=== PATIENT | male | born 1965 | race Caucasian/White ===

== ENCOUNTER 2023-05-20 09:15 | Inpatient (IN) | payer BC ==
[2023-05-20] MEDS ORDERED: SODIUM CHLORIDE 0.9% 500 ML 500 ML IV STA (09:23)
[2023-05-20] MEDS ORDERED: DEXAMETHASONE SOD PHOSPHATE 10 MG/ML 1 ML VIAL IV STA (09:25)
[2023-05-20 09:46] LABS: Basophils % (A) 0 %; Eosinophils # (A) 0.2 k/uL (0-0.7); Eosinophils % (A) 2 %; HGB 16.9 gm/dL (13.0-17.5); Lymphocytes # (A) 1.8 k/uL (1.0-4.8); Lymphocytes % (A) 16 %; MCH 31.7 pg (25.0-35.0); MCHC 31.3 g/dL (31.0-37.0); MCV 101.5 fL (80.0-100.0); Mean Platelet Volume 8.6; Monocytes # (A) 0.6 k/uL (0-1.0); Monocytes % (A) 5 %; Neutrophils # (A) 8.7 k/uL (1.3-7.7); Neutrophils % (A) 75 %; Platelet Count 233 k/uL (150-450); RBC 5.32 m/uL (4.30-5.90); RDW 12.1 % (11.5-15.5); WBC 11.5 k/uL (3.8-10.6)
--- NOTE | 2023-05-20 09:57 | ED ---
General Adult HPI - General Chief complaint: Syncope Stated complaint: Near Syncope Time Seen by Provider: 05/20/23 09:20 Source: patient, RN/MD, RN notes reviewed, old records reviewed Mode of arrival: wheelchair Limitations: no limitations - History of Present Illness Initial comments: 57-year-old male presents after a near respiratory arrest. Patient had been lying flat for radiation treatment for reported laryngeal mass. Patient became progressively altered and was found to be hypoxic in the 60s. Patient was sat up and placed on oxygen and had an improvement in his mental status and oxygenation.. He was noted to be stridorous. Patient reports that he's had this noisy respiration for some time. He is following with both Zenia Baires and radiation oncology also regarding his management. Patient denies chest pain. Denies current dyspnea. Denies vomiting. Denies fever. - Related Data Home Medications Medication Instructions Recorded Confirmed ALPRAZolam [Xanax] 0.25 mg PO DAILY 05/20/23 05/20/23 Aprepitant [Emend] 80 mg PO DIRECTED 05/20/23 05/20/23 HYDROcodone/APAP 5-325MG [[place] 1 tab PO Q4HR PRN 05/20/23 05/20/23 5-325] Lido/Mdryl/Dexa/Aceta 5 ml PO TID PRN 05/20/23 05/20/23 OLANZapine [ZyPREXA] 2.5 mg PO DIRECTED 05/20/23 05/20/23 Omeprazole [PriLOSEC] 20 mg PO AC-BID 05/20/23 05/20/23 Ondansetron [Zofran] 4 - 8 mg PO Q4H PRN 05/20/23 05/20/23 Allergies Allergy/AdvReac Type Severity Reaction Status Date / Time No Known Allergies Allergy Verified 05/20/23 09:31 Review of Systems ROS Statement: Those systems with pertinent positive or pertinent negative responses have been documented in the HPI. ROS Other: All systems not noted in ROS Statement are negative. Past Medical History Past Medical History: Cancer, COPD, Syncope, Thyroid Disorder Additional Past Medical History / Comment(s): Graves disease, diverticulosis History of Any Multi-Drug Resistant Organisms: None Reported Additional Past Surgical History / Comment(s): vasectomy, biopsy of throat Past Psychological History: No Psychological Hx Reported Smoking Status: Current every day smoker Past Alcohol Use History: Occasional Past Drug Use History: Marijuana General Exam Limitations: no limitations General appearance: alert, lethargic, in distress Head exam: Present: atraumatic, normocephalic Eye exam: Present: normal appearance, PERRL ENT exam: Present: normal exam Respiratory exam: Present: respiratory distress (Tachypnea), stridor Cardiovascular Exam: Present: normal rhythm, tachycardia GI/Abdominal exam: Present: soft. Absent: distended, tenderness, guarding Extremities exam: Present: normal inspection, normal capillary refill. Absent: pedal edema Neurological exam: Present: alert, oriented X3, CN II-XII intact Psychiatric exam: Present: normal affect, normal mood Skin exam: Present: warm, dry, intact. Absent: cyanosis, diaphoretic Course Vital Signs 05/20/23 05/20/23 05/20/23 09:17 09:28 09:45 Temperature 98.0 F Pulse Rate 117 H Respiratory 30 H 30 H Rate Blood Pressure 123/83 O2 Sat by Pulse 99 97 Oximetry Fraction of Inspired Oxygen (FIO2) 05/20/23 05/20/23 05/20/23 10:14 10:25 10:40 Temperature Pulse Rate 115 H Respiratory 20 Rate Blood Pressure 151/84 215/99 O2 Sat by Pulse 98 Oximetry Fraction of 50 Inspired Oxygen (FIO2) 05/20/23 05/20/23 05/20/23 10:41 10:50 10:52 Temperature Pulse Rate 114 H 110 H 118 H Respiratory 18 20 12 Rate Blood Pressure 200/94 203/105 O2 Sat by Pulse 98 97 Oximetry Fraction of Inspired Oxygen (FIO2) 05/20/23 05/20/23 05/20/23 10:54 11:02 11:04 Temperature Pulse Rate 117 H 111 H Respiratory 20 20 Rate Blood Pressure 195/110 O2 Sat by Pulse 92 L 89 L Oximetry Fraction of Inspired Oxygen (FIO2) 05/20/23 05/20/23 05/20/23 11:07 11:16 11:21 Temperature Pulse Rate 125 H 129 H Respiratory 18 20 Rate Blood Pressure 147/95 96/69 O2 Sat by Pulse 100 100 Oximetry Fraction of 100 Inspired Oxygen (FIO2) 05/20/23 05/20/23 05/20/23 11:24 11:30 11:46 Temperature Pulse Rate 125 H 125 H 124 H Respiratory 20 20 20 Rate Blood Pressure 103/63 118/77 102/67 O2 Sat by Pulse 100 98 99 Oximetry Fraction of Inspired Oxygen (FIO2) 05/20/23 05/20/23 05/20/23 11:49 11:53 12:03 Temperature Pulse Rate 114 H Respiratory 20 Rate Blood Pressure 89/58 66/46 88/63 O2 Sat by Pulse 99 Oximetry Fraction of Inspired Oxygen (FIO2) 05/20/23 05/20/23 05/20/23 12:06 12:10 12:25 Temperature Pulse Rate 111 H Respiratory 20 Rate Blood Pressure 97/67 O2 Sat by Pulse 100 Oximetry Fraction of 50 50 Inspired Oxygen (FIO2) 05/20/23 05/20/23 12:33 12:38 Temperature Pulse Rate 105 H 107 H Respiratory 21 20 Rate Blood Pressure 88/63 87/58 O2 Sat by Pulse 100 99 Oximetry Fraction of Inspired Oxygen (FIO2) - Reevaluation(s) Reevaluation #1: 05/20/23 1100 Patient rapidly decompensated requiring definitive airway. Anesthesia was called for fiberoptic intubation and anesthesia requests ENT was also available during the intubation. Patient was ultimately successfully intubated with an endotracheal tube by anesthesia with significant difficulty and complexity due to large laryngeal mass. Medical Decision Making - Medical Decision Making Was pt. sent in by a medical professional or institution (, PA, DOOR TO DOOR FUNDRAISING COLLECTOR, urgent care, hospital, or long term...) When possible be specific @ -No Did you speak to anyone other than the patient for history (EMS, parent, family, police, friend...)? What history was obtained from this source @ -No Did you review nursing and triage notes (agree or disagree)? Why? @ -I reviewed and agree with nursing and triage notes Were old charts reviewed (outside hosp., previous admission, EMS record, old EKG, old radiological studies, urgent care reports/EKG's, long term records)? Report findings @ -No old charts were reviewed Differential Diagnosis (chest pain, altered mental status, abdominal pain women, abdominal pain men, vaginal bleeding, weakness, fever, dyspnea, syncope, headache, dizziness, GI bleed, back pain, seizure, CVA, palpatations, mental he alth, musculoskeletal)? @ -not applicable EKG interpreted by me (3pts min.). @ -[Sinus tachycardia rate of 117, TX interval 118, QRS duration 87, QTC 381, no ST segment elevation. X-rays interpreted by me (1pt min.). @ -[Postintubation x-ray showing satisfactory endotracheal tube CT interpreted by me (1pt min.). @ -[CT neck and chest are pending U/S interpreted by me (1pt. min.). @ -None done What testing was considered but not performed or refused? (CT, X-rays, U/S, labs)? Why? @ -None What meds were considered but not given or refused? Why? @ -None Did you discuss the management of the patient with other professionals (prof zachary i.e. , PA, DOOR TO DOOR FUNDRAISING COLLECTOR, lab, RT, psych nurse, licensed clinical social worker, wax machine operator, teacher, traffic control officer, high risk case manager)? Give summary @ -Case discussed with the admitting doctor Dr. Juarez, Dr. Chen, Dr. Amaya, and Dr. Wood Was smoking cessation discussed for >3mins.? @ -No Was critical care preformed (if so, how long)? @ -Yes, 35 minutes Were there social determinants of health that impacted care today? How? (Homelessness, low income, unemployed, alcoholism, drug addiction, transpor tation, low edu. Level, literacy, decrease access to med. care, residential, rehab)? @ -No Was there de-escalation of care discussed even if they declined (Discuss DNR or withdrawal of care, Hospice)? DNR status @ -No What co-morbidities impacted this encounter? (DM, HTN, Smoking, COPD, CAD, Cancer, CVA, ARF, Chemo, Hep., AIDS, mental health diagnosis, sleep apnea, morbid obesity)? @ Current smoker, laryngeal mass Was patient admitted / discharged? Hospital course, mention meds given and route, prescriptions, significant lab abnormalities, going to OR and other pertinent info. @ -[57-year-old male who presented from the outpatient radiation oncology department with near respiratory arrest, found to be hypoxic. There is very limited history from the patient and it was reported that the patient was presenting for radiation for unknown laryngeal mass which is been worked up at [facility]. Patient is a stridorous upon arrival with equal breath sounds bilaterally. Patient rapidly decompensated swelling emergency department and decision is made to intubate this patient with the assistance of anesthesia, fiberoptic airway and anesthesia requests ENT surgery via bedside. ENT is available emergency department within one or 2 minutes. Patient is sedated and intubated in the ICU. Undiagnosed new problem with uncertain prognosis? @ -No Drug Therapy requiring intensive monitoring for toxicity (Heparin, Nitro, Insulin, Cardizem)? @ -No Were any procedures done? @ -No Diagnosis/symptom? @ -Respiratory failure, hypoxic hypercarbic respiratory failure secondary to obstructing laryngeal mass Acute, or Chronic, or Acute on Chronic? @ -[Acute on chronic Uncomplicated (without systemic symptoms) or Complicated (systemic symptoms)? @ -default Side effects of treatment? @ -No Exacerbation, Progression, or Severe Exacerbation? @ -No Poses a threat to life or bodily function? How? (Chest pain, USA, IA, pneumonia, PE, COPD, DKA, ARF, appy, cholecystitis, CVA, Diverticulitis, Homicidal, Suicidal, threat to staff... and all critical care pts) @ -[Yes, upper airway obstruction. - Lab Data Result diagrams: 05/20/23 09:37 05/20/23 09:37 Lab Results 05/20/23 05/20/23 05/20/23 Range/Units 09:37 09:37 09:37 WBC 11.5 H (3.8-10.6) k/uL RBC 5.32 (4.30-5.90) m/uL Hgb 16.9 (13.0-17.5) gm/dL Hct 54.0 H (39.0-53.0) % MCV 101.5 H (80.0-100.0) fL MCH 31.7 (25.0-35.0) pg MCHC 31.3 (31.0-37.0) g/dL RDW 12.1 (11.5-15.5) % Plt Count 233 (150-450) k/uL MPV 8.6 Neutrophils % 75 % Lymphocytes % 16 % Monocytes % 5 % Eosinophils % 2 % Basophils % 0 % Neutrophils # 8.7 H (1.3-7.7) k/uL Lymphocytes # 1.8 (1.0-4.8) k/uL Monocytes # 0.6 (0-1.0) k/uL Eosinophils # 0.2 (0-0.7) k/uL Basophils # 0.0 (0-0.2) k/uL PT (9.0-12.0) sec INR (<1.2) APTT (22.0-30.0) sec Sample Site ABG pH (7.35-7.45) ABG pCO2 (35-45) mmHg ABG pO2 (83-108) mmHg ABG HCO3 (21-25) mmol/L ABG Total CO2 (19-24) mmol/L ABG O2 Saturation (94-97) % ABG Base Excess mmol/L Jonathan Test VBG pH (7.31-7.41) VBG pCO2 (37-51) mmHg VBG HCO3 (24-28) mmol/L FiO2 % Sodium 135 L (137-145) mmol/L Potassium 4.4 (3.5-5.1) mmol/L Chloride 91 L (98-107) mmol/L Carbon Dioxide 40 H (22-30) mmol/L Anion Gap 4 mmol/L BUN 22 H (9-20) mg/dL Creatinine 0.57 L (0.66-1.25) mg/dL Est GFR (CKD-EPI)AfAm >90 (>60 ml/min/1.73 sqM) Est GFR (CKD-EPI)NonAf >90 (>60 ml/min/1.73 sqM) Glucose 115 H (74-99) mg/dL POC Glucose (mg/dL) (70-110) mg/dL POC Glu Clinical Rehabilitation Coordinator ID Calcium 9.4 (8.4-10.2) mg/dL Magnesium 1.8 (1.6-2.3) mg/dL Total Bilirubin 0.6 (0.2-1.3) mg/dL AST 27 (17-59) U/L ALT 26 (4-49) U/L Alkaline Phosphatase 69 (38-126) U/L Troponin I <0.012 (0.000-0.034) ng/mL Total Protein 6.4 (6.3-8.2) g/dL Albumin 3.6 (3.5-5.0) g/dL 05/20/23 05/20/23 05/20/23 Range/Units 10:26 10:29 10:29 WBC (3.8-10.6) k/uL RBC (4.30-5.90) m/uL Hgb (13.0-17.5) gm/dL Hct (39.0-53.0) % MCV (80.0-100.0) fL MCH (25.0-35.0) pg MCHC (31.0-37.0) g/dL RDW (11.5-15.5) % Plt Count (150-450) k/uL MPV Neutrophils % % Lymphocytes % % Monocytes % % Eosinophils % % Basophils % % Neutrophils # (1.3-7.7) k/uL Lymphocytes # (1.0-4.8) k/uL Monocytes # (0-1.0) k/uL Eosinophils # (0-0.7) k/uL Basophils # (0-0.2) k/uL PT 9.9 (9.0-12.0) sec INR 0.9 (<1.2) APTT 24.6 (22.0-30.0) sec Sample Site ABG pH (7.35-7.45) ABG pCO2 (35-45) mmHg ABG pO2 (83-108) mmHg ABG HCO3 (21-25) mmol/L ABG Total CO2 (19-24) mmol/L ABG O2 Saturation (94-97) % ABG Base Excess mmol/L Jonathan Test VBG pH 7.08 L* (7.31-7.41) VBG pCO2 134 H* (37-51) mmHg VBG HCO3 40 H (24-28) mmol/L FiO2 % Sodium (137-145) mmol/L Potassium (3.5-5.1) mmol/L Chloride (98-107) mmol/L Carbon Dioxide (22-30) mmol/L Anion Gap mmol/L BUN (9-20) mg/dL Creatinine (0.66-1.25) mg/dL Est GFR (CKD-EPI)AfAm (>60 ml/min/1.73 sqM) Est GFR (CKD-EPI)NonAf (>60 ml/min/1.73 sqM) Glucose (74-99) mg/dL POC Glucose (mg/dL) 112 H (70-110) mg/dL POC Glu Clinical Rehabilitation Coordinator ID ArceJeannie Calcium (8.4-10.2) mg/dL Magnesium (1.6-2.3) mg/dL Total Bilirubin (0.2-1.3) mg/dL AST (17-59) U/L ALT (4-49) U/L Alkaline Phosphatase (38-126) U/L Troponin I (0.000-0.034) ng/mL Total Protein (6.3-8.2) g/dL Albumin (3.5-5.0) g/dL 05/20/23 Range/Units 11:56 WBC (3.8-10.6) k/uL RBC (4.30-5.90) m/uL Hgb (13.0-17.5) gm/dL Hct (39.0-53.0) % MCV (80.0-100.0) fL MCH (25.0-35.0) pg MCHC (31.0-37.0) g/dL RDW (11.5-15.5) % Plt Count (150-450) k/uL MPV Neutrophils % % Lymphocytes % % Monocytes % % Eosinophils % % Basophils % % Neutrophils # (1.3-7.7) k/uL Lymphocytes # (1.0-4.8) k/uL Monocytes # (0-1.0) k/uL Eosinophils # (0-0.7) k/uL Basophils # (0-0.2) k/uL PT (9.0-12.0) sec INR (<1.2) APTT (22.0-30.0) sec Sample Site r rad ABG pH 7.31 L (7.35-7.45) ABG pCO2 71 H* (35-45) mmHg ABG pO2 397 H (83-108) mmHg ABG HCO3 35 H (21-25) mmol/L ABG Total CO2 37 H (19-24) mmol/L ABG O2 Saturation 99.2 H (94-97) % ABG Base Excess 8.9 mmol/L Jonathan Test Yes VBG pH (7.31-7.41) VBG pCO2 (37-51) mmHg VBG HCO3 (24-28) mmol/L FiO2 100 % Sodium (137-145) mmol/L Potassium (3.5-5.1) mmol/L Chloride (98-107) mmol/L Carbon Dioxide (22-30) mmol/L Anion Gap mmol/L BUN (9-20) mg/dL Creatinine (0.66-1.25) mg/dL Est GFR (CKD-EPI)AfAm (>60 ml/min/1.73 sqM) Est GFR (CKD-EPI)NonAf (>60 ml/min/1.73 sqM) Glucose (74-99) mg/dL POC Glucose (mg/dL) (70-110) mg/dL POC Glu Clinical Rehabilitation Coordinator ID Calcium (8.4-10.2) mg/dL Magnesium (1.6-2.3) mg/dL Total Bilirubin (0.2-1.3) mg/dL AST (17-59) U/L ALT (4-49) U/L Alkaline Phosphatase (38-126) U/L Troponin I (0.000-0.034) ng/mL Total Protein (6.3-8.2) g/dL Albumin (3.5-5.0) g/dL Critical Care Time Critical Care Time: Yes Total Critical Care Time: 35 Disposition Clinical Impression: Laryngeal mass, Respiratory failure Disposition: ADMITTED IP TO THIS HOSP Condition: Serious Is patient prescribed a controlled substance at d/c from ED?: No Time of Disposition: 12:00
[2023-05-20 10:26] LABS: ALT 26 U/L (4-49); AST 27 U/L (17-59); African American GFR (CKD) >90 (>60 ml/min/1.73 sqM); Albumin 3.6 g/dL (3.5-5.0); Alkaline Phosphatase 69 U/L (38-126); Anion Gap 4 mmol/L; Blood Urea Nitrogen 22 mg/dL (9-20); Calcium 9.4 mg/dL (8.4-10.2); Carbon Dioxide 40 mmol/L (22-30); Chloride 91 mmol/L (98-107); Glucose 115 mg/dL (74-99); Magnesium 1.8 mg/dL (1.6-2.3); Non-African American GFR(CKD) >90 (>60 ml/min/1.73 sqM); Potassium 4.4 mmol/L (3.5-5.1); Sodium 135 mmol/L (137-145); Total Bilirubin 0.6 mg/dL (0.2-1.3); Total Protein 6.4 g/dL (6.3-8.2)
[2023-05-20 10:28] LABS: Glucose,Whole Blood 112 mg/dL (70-110)
[2023-05-20] MEDS ORDERED: MIDAZOLAM 1 MG/ML 5 ML VIAL IV STA ×3 (10:35→13:30)
[2023-05-20] MEDS ORDERED: SUCCINYLCHOLINE CHLORIDE 200 MG/10 ML VIAL IV STA (10:35)
[2023-05-20 10:46] LABS: VBG PH 7.08 (7.31-7.41)
[2023-05-20 10:53] LABS: INR 0.9 (<1.2); Partial Thromboplastin Time 24.6 sec (22.0-30.0); Prothrombin Time 9.9 sec (9.0-12.0)
[2023-05-20] MEDS ORDERED: CISATRACURIUM 200 MG in SODIUM CHLORIDE 0.9% 180 ML IV SCH (11:15)
--- NOTE | 2023-05-20 11:17 | XR ---
EXAMINATION TYPE: XR chest 1V portable DATE OF EXAM: 05/20/2023 Comparison: None Clinical History: 57 male shortness of breath and syncope Findings: Heart borderline in size. Interstitial and vascular prominence. Old healed right-sided rib fracture d eformities. No consolidation or pleural effusion. Impression: Borderline heart size and interstitial prominence. Correlate to exclude mild pulmonary vascular conge stion.
[2023-05-20] MEDS ORDERED: RACEPINEPHRINE 2.25% NEB 0.5 ML NEBU INHALATION STA (11:38)
--- NOTE | 2023-05-20 11:45 | XR ---
EXAMINATION TYPE: XR chest 1V portable DATE OF EXAM: 05/20/2023 Comparison: Earlier today Clinical History: 57-year-old male intubation placement Findings: Satisfactory ET tube. NG tube tip is located within the fundus of the stomach. Sidehole is not well s een. Heart upper limits of normal in size. Interstitial prominence. No jessica consolidation or pleural effusion. Hyperinflation. Impression: 1. Satisfactory ET tube. Consider slight advancement of the so that the sidehole in the stomach. NG t ube. We suspect that the sidehole is just above the GE junction. 2. COPD with similar interstitial densities.
[2023-05-20] MEDS ORDERED: SODIUM CHLORIDE 0.9% 1,000 ML IV ONE ×3 (11:55→16:49)
[2023-05-20 12:00] LABS: ABG Base Excess 8.9 mmol/L; ABG HCO3 35 mmol/L (21-25); ABG PH 7.31 (7.35-7.45); ABG PO2 397 mmHg (83-108); ABG TCO2 37 mmol/L (19-24); Allen Test Performed? Yes
[2023-05-20 12:01] LABS: ABG Oxygen Saturation 99.2 % (94-97); ABG PCO2 71 mmHg (35-45)
[2023-05-20] MEDS ORDERED: PANTOPRAZOLE 40 MG/10 ML VIAL IVP STA (12:03)
[2023-05-20] MEDS ORDERED: NALOXONE 0.4 MG/ML 1 ML VIAL IV PRN (12:29)
[2023-05-20] MEDS ORDERED: ACETAMINOPHEN SUPPOSITORY 650 MG SUPP RECTAL PRN (12:29)
[2023-05-20] MEDS: SODIUM CHLORIDE 0.9% 1,000 ML IV SCH (12:51)
--- NOTE | 2023-05-20 12:55 | P.HPIM ---
History of Present Illness H&P Date: 05/20/23 Chief Complaint: respiratory failure 57-year-old man with a history of head and neck cancer with obstructing laryngeal mass present for respiratory failure, obtundation. 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 CODE BLUE was called at the time, and patient was noted to be hypoxic to 50-60% saturation, was placed on nonrebreather and improved to mid 90s. Subsequently he was transferred to the emergency room for further evaluation. During his ER course, patient became more obtunded, requiring emergent intubation. Anesthesia was called for emergent intubation with possible need for surgical airway. ENT came to bedside in case tracheostomy was required. Anesthesia was able to get the patient intubated with great difficu lty, during the procedure was notable that he had friable mucosa with easy bleeding of the mass. Patient was ultimately transferred to the intensive care unit for further management. In the emergency room, patient was afebrile, 151/84, heart rate 115, 98% on 15 L of nonrebreather. ECG demonstrated leukocytosis to 11.5, MCV of 101.5. Basic metabolic panel showed sodium of 135, chloride 91, CO2 40, BUN 22, creatinine 1.57. Liver function tests are unremarkable. Troponin was less than 0.012. Coags are unremarkable. Initial pH on VBG was 7.08 with a pCO2 of 134. Following intubation, his ABG demonstrated pCO2 of 71, pH of 7.31. Chest x-ray showed normal-sized heart, clear parenchyma bilaterally, post intubation chest x-ray showed breathing tube in good position. EKG demonstrated sinus tachycardia with peaked P waves consistent with right atrial enlargement. Case was discussed with the emergency room provider at bedside, anesthesia, ENT physician - patient was admitted for further management. Review of systems could not be completed due to patient's obtundation and subsequent intubation status General: intubated, sedated HEENT: normocephalic, atraumatic, no tracheal deviation Respiratory: symmetric chest rise, no cyanosis, ventilator dependent, stridor is present CVS: perfusing all extremities, no distal gangrene, no pitting edema GI: soft, ND : no SPT, no CVAT, weldon not present Neuro: sedated Labs and imaging as above Assessment: Acute hypercarbic respiratory failure Laryngeal mass causing upper airway obstruction Head and neck cancer Plan: Vital signs reviewed and noted in the HPI Lab work reviewed and noted in the HPI EKG and CXR are personally interpreted and noted in the HPI Case was discussed with the Emergency Room provider and decision was made to admit the patient for hypercarbic respiratory failure secondary to obstructing laryngeal mass Computed tomography scan of the head and neck with IV contrast Scan of the chest with IV contrast ENT consult Oncology consult Pulmonology consult Agree with propofol, Versed, cistacurium I was present for and provided critical care in this patient for 90 minutes including rapid response time while patient was in [facility] as well as throughout his ER course. Patient is full code Past Medical History Past Medical History: Cancer, COPD, Syncope, Thyroid Disorder Additional Past Medical History / Comment(s): Graves disease, diverticulosis History of Any Multi-Drug Resistant Organisms: None Reported Additional Past Surgical History / Comment(s): vasectomy, biopsy of throat Past Psychological History: No Psychological Hx Reported Smoking Status: Current every day smoker Past Alcohol Use History: Occasional Past Drug Use History: Marijuana Medications and Allergies Home Medications Medication Instructions Recorded Confirmed Type ALPRAZolam [Xanax] 0.25 mg PO DAILY 05/20/23 05/20/23 History Aprepitant [Emend] 80 mg PO DIRECTED 05/20/23 05/20/23 History HYDROcodone/APAP 5-325MG [[place] 1 tab PO Q4HR PRN 05/20/23 05/20/23 History 5-325] Lido/Mdryl/Dexa/Aceta 5 ml PO TID PRN 05/20/23 05/20/23 History OLANZapine [ZyPREXA] 2.5 mg PO DIRECTED 05/20/23 05/20/23 History Omeprazole [PriLOSEC] 20 mg PO AC-BID 05/20/23 05/20/23 History Ondansetron [Zofran] 4 - 8 mg PO Q4H PRN 05/20/23 05/20/23 History Allergies Allergy/AdvReac Type Severity Reaction Status Date / Time No Known Allergies Allergy Verified 05/20/23 09:31 Physical Exam Osteopathic Statement: *. No significant issues noted on an osteopathic structural exam other than those noted in the History and Physical/Consult. Vitals: Vital Signs Temp Pulse Resp BP Pulse Ox FiO2 05/20/23 12:38 107 H 20 87/58 99 05/20/23 12:33 105 H 21 88/63 100 05/20/23 12:25 50 05/20/23 12:10 50 05/20/23 12:06 111 H 20 97/67 100 05/20/23 12:03 114 H 20 88/63 99 05/20/23 11:53 66/46 05/20/23 11:49 89/58 05/20/23 11:46 124 H 20 102/67 99 05/20/23 11:30 125 H 20 118/77 98 05/20/23 11:24 125 H 20 103/63 100 05/20/23 11:21 100 05/20/23 11:16 129 H 20 96/69 100 05/20/23 11:07 125 H 18 147/95 100 05/20/23 11:04 111 H 20 05/20/23 11:02 117 H 20 195/110 89 L 05/20/23 10:54 92 L 05/20/23 10:52 118 H 12 203/105 97 05/20/23 10:50 110 H 20 05/20/23 10:41 114 H 18 200/94 98 05/20/23 10:40 50 05/20/23 10:25 215/99 05/20/23 10:14 115 H 20 151/84 98 05/20/23 09:45 97 05/20/23 09:28 30 H 05/20/23 09:17 98.0 F 117 H 30 H 123/83 99 Intake and Output 05/19/23 05/20/23 05/20/23 22:59 06:59 14:59 Intake Total 21.669 Balance 21.669 Intake: Intake, IV Titration 21.669 Amount propofoL 1,000 mg In 21.669 Empty Bag 1 bag @ 15 MCG/ KG/MIN 5.47 mls/hr IV . [id number] Rx#:[id number] Other: Weight 60.781 kg Results CBC & Chem 7: 05/20/23 09:37 05/20/23 09:37 Labs: Abnormal Lab Results - Last 24 Hours (Table) 05/20/23 05/20/23 05/20/23 Range/Units 09:37 09:37 10:26 WBC 11.5 H (3.8-10.6) k/uL Hct 54.0 H (39.0-53.0) % MCV 101.5 H (80.0-100.0) fL Neutrophils # 8.7 H (1.3-7.7) k/uL ABG pH (7.35-7.45) ABG pCO2 (35-45) mmHg ABG pO2 (83-108) mmHg ABG HCO3 (21-25) mmol/L ABG Total CO2 (19-24) mmol/L ABG O2 Saturation (94-97) % VBG pH (7.31-7.41) VBG pCO2 (37-51) mmHg VBG HCO3 (24-28) mmol/L Sodium 135 L (137-145) mmol/L Chloride 91 L (98-107) mmol/L Carbon Dioxide 40 H (22-30) mmol/L BUN 22 H (9-20) mg/dL Creatinine 0.57 L (0.66-1.25) mg/dL Glucose 115 H (74-99) mg/dL POC Glucose (mg/dL) 112 H (70-110) mg/dL 05/20/23 05/20/23 Range/Units 10:29 11:56 WBC (3.8-10.6) k/uL Hct (39.0-53.0) % MCV (80.0-100.0) fL Neutrophils # (1.3-7.7) k/uL ABG pH 7.31 L (7.35-7.45) ABG pCO2 71 H* (35-45) mmHg ABG pO2 397 H (83-108) mmHg ABG HCO3 35 H (21-25) mmol/L ABG Total CO2 37 H (19-24) mmol/L ABG O2 Saturation 99.2 H (94-97) % VBG pH 7.08 L* (7.31-7.41) VBG pCO2 134 H* (37-51) mmHg VBG HCO3 40 H (24-28) mmol/L Sodium (137-145) mmol/L Chloride (98-107) mmol/L Carbon Dioxide (22-30) mmol/L BUN (9-20) mg/dL Creatinine (0.66-1.25) mg/dL Glucose (74-99) mg/dL POC Glucose (mg/dL) (70-110) mg/dL
[2023-05-20] MEDS: MIDAZOLAM HCL 50 MG in SODIUM CHLORIDE 0.9% 40 ML IV SCH (13:02)
[2023-05-20] MEDS ORDERED: MIDAZOLAM 2 MG/2 ML VIAL IV STA (13:52)
[2023-05-20 14:03] LABS: Appearance,Urine Clear (Clear); Bacteria,Urine Rare /hpf; Bilirubin,Urine Negative (Negative); Blood,Urine Negative (Negative); Color,Urine Yellow; Glucose,Urine (UA) Negative (Negative); Hyaline Casts,Urine 9 /lpf (0-2); Ketones,Urine 2+ (Negative); Leukocyte Esterase,Urine Negative (Negative); Mucus,Urine Occasional /hpf; Nitrite,Urine Negative (Negative); PH, Urine 5.5 (5.0-8.0); Protein,Urine 1+ (Negative); RBC,Urine 1 /hpf (0-5); Specific Gravity,Urine 1.021 (1.001-1.035); Squamous Epithelial Cell,Urine <1 /hpf (0-4); Urobilinogen,Urine <2.0 mg/dL (<2.0); WBC,Urine 6 /hpf (0-5)
--- NOTE | 2023-05-20 14:19 | P.CNPUL ---
History of Present Illness Consult date: 05/20/23 Requesting physician: Jung Gutierrez Reason for consult: dyspnea, hypoxemia, abnormal CXR/CT, other Chief complaint: Laryngeal cancer. History of present illness: Pulmonary consult dated 05/20/2023. 57-year-old male with history of laryngeal carcinoma, who apparently was over at the [facility] center, for his first radiation treatment. He apparently was laying flat, became short of breath, and had a change in mental status, and a CODE BLUE was called. The patient never lost pulses, and he never stopped breathing. The rapid response team responded to the CODE BLUE and the patient was sent to the ER to be evaluated. In the emergency room, the patient apparently was having significant respiratory difficulty, and he was stridorous, and for that reason, he was intubated, by anesthesia, using fiberoptics. The patient is currently in the emergency department. The plan is for tracheostomy, possibly tomorrow. Urine nose throat doctor has been consulted. Currently, the patient is on the v entilator, with settings of assist control, rate 20, tidal volume 450, FiO2 50%, and PEEP of 5. He has propofol running at 50 mcg/kg/m, Versed 5 mg an hour, and saline at 100 mL an hour. In addition to laryngeal carcinoma, he has a history of COPD, syncope, Graves' disease, diverticular disease, as a current every day smoker. He has had no treatment for his cancer as yet. Today was the first r adiation treatment. White count 11.5, hemoglobin 16.9, hematocrit 54, and platelet count 233,000. Blood gases show pO2 397, pCO2 71, and a pH is 7.31. Sodium 135, potassium 4.4, chlorides 91, CO2 40, BUN 22, and creatinine 0.57. Based on the bicarbonate concentration of 40, the patient's baseline PaCO2 is right around 68+ or -2 mmHg. Chest x-ray shows borderline heart size, and interstitial prominence. Review of Systems REVIEW OF SYSTEMS: CONSTITUTIONAL: [Negative.] NEUROLOGIC: Lethargy, with mental status changes. HEENT: [ Negative.] CARDIAC: [Negative.] PULMONARY: Shortness of breath and stridor. GI: [Negative.] : [Negative.] RHEUMATOLOGIC: [ Negative.] IMMUNOLOGIC: [ Negative.] ENDOCRINE: [Negative. ] DERMATOLOGIC: [Negative.] Past Medical History Past Medical History: Cancer, COPD, Syncope, Thyroid Disorder Additional Past Medical History / Comment(s): Graves disease, diverticulosis History of Any Multi-Drug Resistant Organisms: None Reported Additional Past Surgical History / Comment(s): vasectomy, biopsy of throat Past Psychological History: No Psychological Hx Reported Smoking Status: Current every day smoker Past Alcohol Use History: Occasional Past Drug Use History: Marijuana Medications and Allergies Home Medications Medication Instructions Recorded Confirmed Type ALPRAZolam [Xanax] 0.25 mg PO DAILY 05/20/23 05/20/23 History Aprepitant [Emend] 80 mg PO DIRECTED 05/20/23 05/20/23 History HYDROcodone/APAP 5-325MG [[place] 1 tab PO Q4HR PRN 05/20/23 05/20/23 History 5-325] Lido/Mdryl/Dexa/Aceta 5 ml PO TID PRN 05/20/23 05/20/23 History OLANZapine [ZyPREXA] 2.5 mg PO DIRECTED 05/20/23 05/20/23 History Omeprazole [PriLOSEC] 20 mg PO AC-BID 05/20/23 05/20/23 History Ondansetron [Zofran] 4 - 8 mg PO Q4H PRN 05/20/23 05/20/23 History Allergies Allergy/AdvReac Type Severity Reaction Status Date / Time No Known Allergies Allergy Verified 05/20/23 09:31 Physical Exam Osteopathic Statement: *. No significant issues noted on an osteopathic structural exam other than those noted in the History and Physical/Consult. Vitals: Vital Signs Temp Pulse Resp BP Pulse Ox FiO2 05/20/23 13:59 83/61 05/20/23 13:40 84/55 05/20/23 13:36 90/65 05/20/23 13:34 94/60 05/20/23 13:25 102 H 22 108/87 100 05/20/23 13:00 98 20 88/56 100 05/20/23 12:38 107 H 20 87/58 99 05/20/23 12:33 105 H 21 88/63 100 05/20/23 12:25 50 05/20/23 12:10 50 05/20/23 12:06 111 H 20 97/67 100 05/20/23 12:03 114 H 20 88/63 99 05/20/23 11:53 66/46 05/20/23 11:49 89/58 05/20/23 11:46 124 H 20 102/67 99 05/20/23 11:30 125 H 20 118/77 98 05/20/23 11:24 125 H 20 103/63 100 05/20/23 11:21 100 05/20/23 11:16 129 H 20 96/69 100 05/20/23 11:07 125 H 18 147/95 100 05/20/23 11:04 111 H 20 05/20/23 11:02 117 H 20 195/110 89 L 05/20/23 10:54 92 L 05/20/23 10:52 118 H 12 203/105 97 05/20/23 10:50 110 H 20 05/20/23 10:41 114 H 18 200/94 98 05/20/23 10:40 50 05/20/23 10:25 215/99 05/20/23 10:14 115 H 20 151/84 98 05/20/23 09:45 97 05/20/23 09:28 30 H 05/20/23 09:17 98.0 F 117 H 30 H 123/83 99 Intake and Output 05/19/23 05/20/23 05/20/23 22:59 06:59 14:59 Intake Total 40.293 Balance 40.293 Intake: Intake, IV Titration 40.293 Amount Midazolam HCl 50 mg In 2.667 Sodium Chloride 0.9% 40 ml @ 1 MG/HR 1 mls/hr IV .Q24H [facility] Rx#:[id number] propofoL 1,000 mg In 37.626 Empty Bag 1 bag @ 15 MCG/ KG/MIN 5.47 mls/hr IV . [id number] [facility] Rx#:[id number] Other: Weight 60.781 kg No acute distress, sedated, with an orally placed endotracheal tube, and NG tube. HEENT examination is grossly unremarkable. Neck supple. Full range of motion. No adenopathy thyromegaly or neck vein distention. Cardiovascular examination reveals regular rhythm rate. S1-S2 normal. No S3 or S4. No discernible murmur noted. Heart rate 100 bpm. Lungs reveal clear breath sounds. Breath sounds are equal bilaterally. No adventitious lung sounds including wheezes rhonchi or crackles. Abdomen soft bowel sounds are heard. No masses or tenderness. Extremities are intact. No cyanosis clubbing or edema. Skin is without rash or lesion. Neurologic examination cannot be assessed. Results - Laboratory Findings CBC and BMP: 05/20/23 09:37 05/20/23 09:37 ABG ABG pH 7.31 (7.35-7.45) L 05/20/23 11:56 ABG pCO2 71 mmHg (35-45) H* 05/20/23 11:56 ABG pO2 397 mmHg (83-108) H 05/20/23 11:56 ABG O2 Saturation 99.2 % (94-97) H 05/20/23 11:56 PT/INR, D-dimer PT 9.9 sec (9.0-12.0) 05/20/23 10:29 INR 0.9 (<1.2) 05/20/23 10:29 Abnormal lab findings: Abnormal Labs 05/20/23 05/20/23 05/20/23 09:37 09:37 10:26 WBC 11.5 H Hct 54.0 H MCV 101.5 H Neutrophils # 8.7 H ABG pH ABG pCO2 ABG pO2 ABG HCO3 ABG Total CO2 ABG O2 Saturation VBG pH VBG pCO2 VBG HCO3 Sodium 135 L Chloride 91 L Carbon Dioxide 40 H BUN 22 H Creatinine 0.57 L Glucose 115 H POC Glucose (mg/dL) 112 H Urine Protein Urine Ketones Urine WBC Urine Bacteria Hyaline Casts Urine Mucus 05/20/23 05/20/23 05/20/23 10:29 11:56 13:39 WBC Hct MCV Neutrophils # ABG pH 7.31 L ABG pCO2 71 H* ABG pO2 397 H ABG HCO3 35 H ABG Total CO2 37 H ABG O2 Saturation 99.2 H VBG pH 7.08 L* VBG pCO2 134 H* VBG HCO3 40 H Sodium Chloride Carbon Dioxide BUN Creatinine Glucose POC Glucose (mg/dL) Urine Protein 1+ H Urine Ketones 2+ H Urine WBC 6 H Urine Bacteria Rare H Hyaline Casts 9 H Urine Mucus Occasional H - Diagnostic Findings Chest x-ray: image reviewed Assessment and Plan Assessment: S/P intubation and mechanical ventilation, 05/20/2020, secondary to respiratory compromise and stridor, in a patient with a known history of laryngeal carcinoma. History of COPD, with chronic hypercapnic respiratory failure. History of syncope. Graves' disease. Diverticular disease. Ongoing tobacco use with nicotine addiction. History of marijuana use. Plan: Plan dated 05/20/2023. Patient is seen in the emergency department. He is intubated, and sedated, with propofol, and Versed. The patient will eventually move out to the intensive care unit. Additional recommendations and suggestions are forthcoming. We will implement the vent bundle orders, and ICU admission orders. I also told the nurse, that she could start him on some Dilaudid, 1 mg IV, every 2 hours as needed, and even increase of propofol up to 75 mcg/kg/m. We will attempt to get the patient off the Versed drip. The patient will have labs, x-rays, in the morning, along with a blood gas. In addition, the patient will be started on duo nebs, every 4 hours [id number]. The patient will also need GI and DVT prophylaxis. The patient be seen by ear nose and throat physician, for trac heostomy. Time with Patient: Greater than 30
[2023-05-20 14:33] LABS: Glucose,Whole Blood 95 mg/dL (70-110)
--- NOTE | 2023-05-20 14:56 | CT ---
CT CHEST FOR PULMONARY EMBOLISM. EXAMINATION TYPE: CT angio chest DATE OF EXAM: 05/20/2023 INDICATION: KALINA, recently diagnosed with throat ca, intubated. CT DLP: 362.7 mGycm, Automated exposure control for dose reduction was used. CONTRAST: Patient injected with 100 mL of Isovue 370. COMPARISON: None TECHNIQUE: CT of the chest is performed on a spiral scan at 2 mm thick sections. Study is performed with intravenous contrast timed for evaluation for pulmonary embolism. This will limit additional po rtions of the evaluation. 3-D MIP images reconstructed by the technologist are reviewed on the compu ter in the coronal and sagittal planes. FINDINGS: Patient is intubated and has the endotracheal tube tip above the mansi. Endotracheal tube course minnie ears deviated towards the left vocal cord level. No mediastinal or hilar adenopathy enlarged by CT criteria is evident. The ascending aorta diameter at the level of the main pulmonary artery is 8.3 cm. The main pulmonary artery diameter at the bifur cation is 2.7 cm. Lung windows are clear. Emphysematous blebs and bulla changes are present. Limited CT section through the upper abdomen are unremarkable. Nasogastric tube transverses the thora x with the tip of the nasogastric tube within the proximal stomach. IMPRESSION: 1. Emphysematous changes bilateral lung poon. 2. Endotracheal tube with tip above the mansi. This may have some left lateral deviation through the level of vocal cords implying underlying mass
--- NOTE | 2023-05-20 15:05 | CT ---
EXAMINATION TYPE: CT soft tissue neck w con DATE OF EXAM: 05/20/2023 COMPARISON: CT 03/09/2023 HISTORY: Stridor, KALINA, recently diagnosed with throat ca, intubated. Isovue 370/100 ml, No prior CT DLP: 269.5 mGycm CONTRAST: Patient injected with 370 mL of Isovue 370. TECHNIQUE: Axial images at 3 mm thick sections. Reconstructed images in the coronal plane and sagitt al plane are reviewed. FINDINGS: Limited CT sections are obtained the lung apices. The lung apices appear clear. CT neck: The torus tubarius and fossa of Rosenmuller are normal. Station [place] spaces are normal. Para nasal sinuses and mastoid air cells are clear. Parotid glands appear normal and symmetrical. Submandibular glands, are normal. Parapharyngeal spac es are normal. No suspicious adenopathy is evident. There are a few scattered small lymph nodes pres ent. The hypopharynx appears within normal limits. There is deviation of the endotracheal tube towards the left in the vocal cord level. This could be r elated to underlying mass. Differential would include positioning of the endotracheal tube in the enoc pharynx. However, this appears to correlate of the level of the hypopharynx and laryngeal mass on out side imaging. Thyroid as visualized is normal. There is fluid within the oropharynx and posterior nasal pharynx. IMPRESSION: 1. Ill-defined right laryngeal mass. 2. Patient intubated
[2023-05-20] MEDS: HYDROmorphone 1 MG/ML 1 ML SYRINGE IVP PRN ×2 (17:06→20:46)
[2023-05-20 17:47] LABS: Glucose,Whole Blood 82 mg/dL (70-110)
[2023-05-20] MEDS: NOREPINEPHRINE 4 MG in SODIUM CHLORIDE 0.9% 250 ML IV SCH (18:59)
[2023-05-20] MEDS ORDERED: Magnesium Replacement Protocol 1 EACH MISC MISCELLANE PRN (19:39)
[2023-05-20] MEDS ORDERED: MAGNESIUM SULFATE-D5W PMX 1 GM in DEXTROSE/WATER 1 100ML.BAG IVPB ONE (20:00)
[2023-05-20] MEDS: CHLORHEXIDINE GLUCONATE 15 ML CUP MUCOUS MEM SCH (20:47)
[2023-05-21] LABS: Glucose,Whole Blood 81 mg/dL (70-110)
[2023-05-21] MEDS: HYDROmorphone 1 MG/ML 1 ML SYRINGE IVP PRN ×5 (01:33→22:53)
[2023-05-21] MEDS: SODIUM CHLORIDE 0.9% 1,000 ML IV SCH ×3 (04:00→18:45)
[2023-05-21 06:03] LABS: Glucose,Whole Blood 69 mg/dL (70-110)
[2023-05-21 06:04] LABS: ABG Base Excess 5.5 mmol/L; ABG HCO3 30 mmol/L (21-25); ABG Oxygen Saturation 98.2 % (94-97); ABG PCO2 43 mmHg (35-45); ABG PH 7.45 (7.35-7.45); ABG PO2 117 mmHg (83-108); ABG TCO2 31 mmol/L (19-24); Allen Test Performed? Yes
[2023-05-21] MEDS ORDERED: DEXTROSE 50% SYRINGE 50 ML IVP ONE (06:13)
[2023-05-21 06:57] LABS: Glucose,Whole Blood 95 mg/dL (70-110)
[2023-05-21 07:14] LABS: African American GFR (CKD) >90 (>60 ml/min/1.73 sqM); Anion Gap 8 mmol/L; Blood Urea Nitrogen 15 mg/dL (9-20); Calcium 8.2 mg/dL (8.4-10.2); Carbon Dioxide 24 mmol/L (22-30); Chloride 105 mmol/L (98-107); Glucose 58 mg/dL (74-99); Magnesium 1.9 mg/dL (1.6-2.3); Non-African American GFR(CKD) >90 (>60 ml/min/1.73 sqM); Potassium 4.4 mmol/L (3.5-5.1); Sodium 137 mmol/L (137-145)
[2023-05-21 07:17] LABS: Basophils % (A) 0 %; Eosinophils # (A) 0.1 k/uL (0-0.7); Eosinophils % (A) 1 %; HCT 44.4 % (39.0-53.0); Hypochromasia Moderate; Lymphocytes # (A) 1.7 k/uL (1.0-4.8); Lymphocytes % (A) 14 %; MCH 32.2 pg (25.0-35.0); MCHC 30.8 g/dL (31.0-37.0); MCV 104.6 fL (80.0-100.0); Macrocytosis Slight; Mean Platelet Volume 8.7; Monocytes % (A) 8 %; Neutrophils # (A) 9.2 k/uL (1.3-7.7); Neutrophils % (A) 75 %; Platelet Count 173 k/uL (150-450); RBC 4.25 m/uL (4.30-5.90); RDW 11.8 % (11.5-15.5); WBC 12.2 k/uL (3.8-10.6)
[2023-05-21 07:23] LABS: HGB 13.7 gm/dL (13.0-17.5)
--- NOTE | 2023-05-21 07:45 | XR ---
EXAMINATION TYPE: XR chest 1V portable DATE OF EXAM: 05/21/2023 6:01 AM CLINICAL INDICATION:Male, 57 years old with history of shortness of breath; [facility] COMPARISON: Chest radiograph from one day prior. TECHNIQUE: XR chest 1V portable Frontal view of the chest. FINDINGS: Lungs/Pleura: There is no evidence of pleural effusion, focal consolidation, or pneumothorax. Pulmonary vascularity: Unremarkable. Heart/mediastinum: Cardiomediastinal silhouette is unremarkable. Musculoskeletal: No acute osseous pathology. Other findings: None Lines/Tubes: Endotracheal tube with distal tip 6.4 cm above the mansi. Nasogastric tube with its distal tip and side-port projecting under the diaphragm and projecting over the gastric lumen. IMPRESSION: 1. No acute cardiopulmonary disease process. 2. Stable support tubes. 3. COPD changes.
[2023-05-21] MEDS: CHLORHEXIDINE GLUCONATE 15 ML CUP MUCOUS MEM SCH ×2 (10:01→20:12)
[2023-05-21] MEDS: PANTOPRAZOLE 40 MG/10 ML VIAL IVP SCH (10:01)
[2023-05-21] MEDS ORDERED: SODIUM CHLORIDE 0.9% 100 ML BAG ONE (10:40)
[2023-05-21] MEDS ORDERED: ROCURONIUM 10 MG/ML (5 ML VIAL) IV ONE (10:40)
[2023-05-21] MEDS ORDERED: ceFAZolin 1,000 MG VIAL ONE (10:40)
[2023-05-21] MEDS ORDERED: MIDAZOLAM 2 MG/2 ML VIAL ONE (10:40)
[2023-05-21] MEDS ORDERED: NOREPINEPHRINE 1 MG/ML 4 ML VIAL IV ONE (10:40)
[2023-05-21] MEDS ORDERED: PROPOFOL 10 MG/ML 20 ML VIAL IV ONE (10:40)
[2023-05-21] MEDS ORDERED: fentaNYL (PF) 50 MCG/ML 2 ML AMP ONE (10:40)
[2023-05-21] MEDS ORDERED: ONDANSETRON 4 MG/2 ML VIAL ONE (10:40)
--- NOTE | 2023-05-21 10:50 | P.PN ---
Subjective Progress Note Date: 05/21/23 No new complaints today. Pt appears comfortable on the vent. ENT consult pending for tracheostomy. General: intubated, sedated HEENT: normocephalic, atraumatic, no tracheal deviation Respiratory: symmetric chest rise, no cyanosis, ventilator dependent, stridor is present CVS: perfusing all extremities, no distal gangrene, no pitting edema GI: soft, ND : no SPT, no CVAT, welodn not present Neuro: sedated Hospital Course: 57-year-old man with a history of head and neck cancer with obstructing laryn geal mass present for respiratory failure, obtundation. Patient was in [facility] about to receive his first radiation treatment to his neck for laryngeal carcinoma, but prior to receiving treatment he had an episode of hypoxia, obtundation. CODE BLUE was called at the time, and patient was noted to be hypoxic to 50-60% saturation, was placed on nonrebreather and improved to mid 90s. Subsequently he was transferred to the emergency room for further evaluation. During his ER course, patient became more obtunded, requiring emergent intubation. Anesthesia was called for emergent intubation with possible need for surgical airway. ENT came to bedside in case tracheostomy was required. Anesthesia was able to get the patient intubated with great difficulty, during the procedure was notable that he had friable mucosa with easy bleeding of the mass. In the emergency room, patient was afebrile, 151/84, heart rate 115, 98% on 15 L of nonrebreather. ECG demonstrated leukocytosis to 11.5, MCV of 101.5. Basic metabolic panel showed sodium of 135, chloride 91, CO2 40, BUN 22, creatinine 1.57. Liver function tests are unremarkable. Troponin was less than 0.012. Coags are unremarkable. Initial pH on VBG was 7.08 with a pCO2 of 134. Following intubation, his ABG demonstrated pCO2 of 71, pH of 7.31. Chest x-ray showed normal-sized heart, clear parenchyma bilaterally, post intubation chest x-ray showed breathing tube in good position. EKG demonstrated sinus tachycardia with peaked P waves consistent with right atrial enlargement. Case was discussed with the emergency room provider at bedside, anesthesia, ENT physician - Patient was ultimately transferred to the intensive care unit for further management. Assessment: Acute hypercarbic respiratory failure Laryngeal mass causing upper airway obstruction Head and neck cancer Plan: Vitals: Afebrile, 116/60, heart rate 82, 97% on mechanical ventilator volume control 450, FiO2 50% Labs: White blood cell count 12.2, hemoglobin 13.7; BMP is reviewed and unremarkable; magnesium is 1.9; ABG shows pH of 7.45, pCO2 43, pO2 117 Images: Chest x-ray shows clear parenchyma bilaterally, hyperinflation consistent with COPD, ET tube in good position, normal-sized heart Consultation: Pulmonology no review, they agree with ENT consultation which is pending for tracheostomy ENT consult is pending Continue with propofol 50 g Patient is full code Objective - Vital Signs Vital signs: Vital Signs Temp 98.1 F 05/21/23 08:00 Pulse 82 05/21/23 08:00 Resp 20 05/21/23 08:00 BP 116/60 05/21/23 08:00 Pulse Ox 97 05/21/23 08:00 FiO2 40 05/21/23 09:16 Intake & Output 05/20/23 05/21/23 05/21/23 18:59 06:59 18:59 Intake Total 3341.363 1397.537 277.495 Output Total 525 810 65 Balance 2816.363 587.537 212.495 Weight 60.781 kg 64.9 kg Intake: IV 1100 200 Sodium Chloride 0.9% 1, 1100 200 000 ml @ 100 mls/hr IV . Q10H [facility] Rx#:[id number] Intake, IV Titration 3341.363 297.537 77.495 Amount Magnesium Sulfate-D5w Pmx 100 1 gm In Dextrose/Water 1 100ml.bag @ 100 mls/hr IVPB ONCE ONE Rx#: [id number] Midazolam HCl 50 mg In 8.434 7.117 Sodium Chloride 0.9% 40 ml @ 1 MG/HR 1 mls/hr IV .Q24H [facility] Rx#:[id number] Norepinephrine 4 mg In 52.644 Sodium Chloride 0.9% 250 ml @ 0.02 MCG/KG/MIN 4. 632 mls/hr IV .Q24H [facility] Rx#:[id number] Sodium Chloride 0.9% 1, 200 000 ml @ 100 mls/hr IV . Q10H [facility] Rx#:[id number] Sodium Chloride 0.9% 1, 2000 000 ml @ 999 mls/hr IV . Q1H1M [facility] Rx#:[id number] Sodium Chloride 0.9% 1, 1000 000 ml @ 999 mls/hr IV . Q1H1M [facility] Rx#:[id number] propofoL 1,000 mg In 132.929 137.776 77.495 Empty Bag 1 bag @ 15 MCG/ KG/MIN 5.47 mls/hr IV . [id number] [facility] Rx#:[id number] Output: Gastric Drainage 350 Urine 525 460 65 Other: Voiding Method Indwelling Catheter Indwelling Catheter Indwelling Catheter - Labs CBC & Chem 7: 05/21/23 05:47 05/21/23 05:47 Labs: Abnormal Lab Results - Last 24 Hours (Table) 05/20/23 05/20/23 05/20/23 Range/Units 10:29 11:56 13:39 WBC (3.8-10.6) k/uL RBC (4.30-5.90) m/uL MCV (80.0-100.0) fL MCHC (31.0-37.0) g/dL Neutrophils # (1.3-7.7) k/uL ABG pH 7.31 L (7.35-7.45) ABG pCO2 71 H* (35-45) mmHg ABG pO2 397 H (83-108) mmHg ABG HCO3 35 H (21-25) mmol/L ABG Total CO2 37 H (19-24) mmol/L ABG O2 Saturation 99.2 H (94-97) % VBG pH 7.08 L* (7.31-7.41) VBG pCO2 134 H* (37-51) mmHg VBG HCO3 40 H (24-28) mmol/L Creatinine (0.66-1.25) mg/dL Glucose (74-99) mg/dL POC Glucose (mg/dL) (70-110) mg/dL Calcium (8.4-10.2) mg/dL Urine Protein 1+ H (Negative) Urine Ketones 2+ H (Negative) Urine WBC 6 H (0-5) /hpf Urine Bacteria Rare H (None) /hpf Hyaline Casts 9 H (0-2) /lpf Urine Mucus Occasional H (None) /hpf 05/21/23 05/21/23 05/21/23 Range/Units 05:47 05:47 06:02 WBC 12.2 H (3.8-10.6) k/uL RBC 4.25 L (4.30-5.90) m/uL MCV 104.6 H (80.0-100.0) fL MCHC 30.8 L (31.0-37.0) g/dL Neutrophils # 9.2 H (1.3-7.7) k/uL ABG pH (7.35-7.45) ABG pCO2 (35-45) mmHg ABG pO2 (83-108) mmHg ABG HCO3 (21-25) mmol/L ABG Total CO2 (19-24) mmol/L ABG O2 Saturation (94-97) % VBG pH (7.31-7.41) VBG pCO2 (37-51) mmHg VBG HCO3 (24-28) mmol/L Creatinine 0.47 L (0.66-1.25) mg/dL Glucose 58 L (74-99) mg/dL POC Glucose (mg/dL) 69 L (70-110) mg/dL Calcium 8.2 L (8.4-10.2) mg/dL Urine Protein (Negative) Urine Ketones (Negative) Urine WBC (0-5) /hpf Urine Bacteria (None) /hpf Hyaline Casts (0-2) /lpf Urine Mucus (None) /hpf 05/21/23 Range/Units 06:03 WBC (3.8-10.6) k/uL RBC (4.30-5.90) m/uL MCV (80.0-100.0) fL MCHC (31.0-37.0) g/dL Neutrophils # (1.3-7.7) k/uL ABG pH (7.35-7.45) ABG pCO2 (35-45) mmHg ABG pO2 117 H (83-108) mmHg ABG HCO3 30 H (21-25) mmol/L ABG Total CO2 31 H (19-24) mmol/L ABG O2 Saturation 98.2 H (94-97) % VBG pH (7.31-7.41) VBG pCO2 (37-51) mmHg VBG HCO3 (24-28) mmol/L Creatinine (0.66-1.25) mg/dL Glucose (74-99) mg/dL POC Glucose (mg/dL) (70-110) mg/dL Calcium (8.4-10.2) mg/dL Urine Protein (Negative) Urine Ketones (Negative) Urine WBC (0-5) /hpf Urine Bacteria (None) /hpf Hyaline Casts (0-2) /lpf Urine Mucus (None) /hpf Microbiology - Last 24 Hours (Table) 05/20/23 11:36 Gram Stain - Preliminary Sputum
--- NOTE | 2023-05-21 11:06 | P.PN ---
Subjective Progress Note Date: 05/21/23 Principal diagnosis: Laryngeal carcinoma. Pulmonary consult dated 05/20/2023. 57-year-old male with history of laryngeal carcinoma, who apparently was over at the [facility] center, for his first radiation treatment. He apparently was laying flat, became short of breath, and had a change in mental status, and a CODE BLUE was called. The patient never lost pulses, and he never stopped breathing. The rapid response team responded to the CODE BLUE and the patient was sent to the ER to be evaluated. In the emergency room, the patient apparently was having significant respiratory difficulty, and he was stridorous, and for that reason, he was intubated, by anesthesia, using fiberoptics. The patient is currently in the emergency department. The plan is for tracheostomy, possibly tomorrow. Urine nose throat doctor has been consulted. Currently, the patient is on the ventilator, with settings of assist control, rate 20, tidal volume 450, FiO2 50%, and PEEP of 5. He has propofol running at 50 mcg/kg/m, Versed 5 mg an hour, and saline at 100 mL an hour. In addition to laryngeal carcinoma, he has a history of COPD, syncope, Graves' disease, diverticular disease, as a current every day smoker. He has had no treatment for his cancer as yet. Today was the first radiation treatment. White count 11.5, hemoglobin 16.9, hematocrit 54, and platelet count 233,000. Blood gases show pO2 397, pCO2 71, and a pH is 7.31. Sodium 135, potassium 4.4, chlorides 91, CO2 40, BUN 22, and creatinine 0.57. Based on the bicarbonate concentration of 40, the patient's baseline PaCO2 is right around 68+ or -2 mmHg. Chest x-ray shows borderline heart size, and interstitial prominence. Progress note dated 05/21/2023. 57-year-old male that we saw yesterday in the emergency department. The patient has a recent diagnosis of laryngeal carcinoma, and was at the [facility] yesterday, his first radiation treatment, at which time, he had mental status changes, and respiratory difficulty, ended up in the emergency department, and was intubated. He is seen today in the intensive care unit, room 263. He remains on mechanical ventilator. His ventilator settings include the volume assist control, rate 20, tidal volume 450, FiO2 50%, and PEEP of 5. Blood gases are pO2 117, pCO2 of 43, and pH is 7.45. The FiO2 was reduced from 50%, down to 40%. The patient is currently on saline at 100 mL an hour, and propofol at 50 mcg/kg/m. Versed has been weaned off. The patient is to be seen by ear nose and throat physician, for possible tracheostomy. White count 12.2, hemoglobin 13.7, hematocrit 44.4, with a normal platelet count. Sodium 137, potassium 4.4, chlorides 105, CO2 24, anion gap normal, BUN 15, and creatinine 0.47. Chest x- ray shows no acute cardiopulmonary disease. Computed tomography scan of the neck shows an ill-defined right laryngeal mass. Objective - Vital Signs Vital signs: Vital Signs Temp 98.1 F 05/21/23 08:00 Pulse 84 05/21/23 10:30 Resp 20 05/21/23 10:30 BP 107/61 05/21/23 10:00 Pulse Ox 98 05/21/23 10:30 FiO2 40 05/21/23 10:00 Intake & Output 05/20/23 05/21/23 05/21/23 18:59 06:59 18:59 Intake Total 3341.363 1397.537 477.495 Output Total 525 810 95 Balance 2816.363 587.537 382.495 Weight 60.781 kg 64.9 kg Intake: IV 1100 400 Sodium Chloride 0.9% 1, 1100 400 000 ml @ 100 mls/hr IV . Q10H [facility] Rx#:[id number] Intake, IV Titration 3341.363 297.537 77.495 Amount Magnesium Sulfate-D5w Pmx 100 1 gm In Dextrose/Water 1 100ml.bag @ 100 mls/hr IVPB ONCE ONE Rx#: [id number] Midazolam HCl 50 mg In 8.434 7.117 Sodium Chloride 0.9% 40 ml @ 1 MG/HR 1 mls/hr IV .Q24H [facility] Rx#:[id number] Norepinephrine 4 mg In 52.644 Sodium Chloride 0.9% 250 ml @ 0.02 MCG/KG/MIN 4. 632 mls/hr IV .Q24H [facility] Rx#:[id number] Sodium Chloride 0.9% 1, 200 000 ml @ 100 mls/hr IV . Q10H [facility] Rx#:[id number] Sodium Chloride 0.9% 1, 2000 000 ml @ 999 mls/hr IV . Q1H1M [facility] Rx#:[id number] Sodium Chloride 0.9% 1, 1000 000 ml @ 999 mls/hr IV . Q1H1M [facility] Rx#:[id number] propofoL 1,000 mg In 132.929 137.776 77.495 Empty Bag 1 bag @ 15 MCG/ KG/MIN 5.47 mls/hr IV . [id number] [facility] Rx#:[id number] Output: Gastric Drainage 350 Urine 525 460 95 Other: Voiding Method Indwelling Catheter Indwelling Catheter Indwelling Catheter - Exam No acute distress, sedated, with an orally placed endotracheal tube, and NG tube. HEENT examination is grossly unremarkable. Neck supple. Full range of motion. No adenopathy thyromegaly or neck vein dist ention. Cardiovascular examination reveals regular rhythm rate. S1-S2 normal. No S3 or S4. No discernible murmur noted. Heart rate 84 bpm. Lungs reveal clear breath sounds. Breath sounds are equal bilaterally. No adventitious lung sounds including wheezes rhonchi or crackles. Saturations are 98%. Abdomen soft bowel sounds are heard. No masses or tenderness. Extremities are intact. No cyanosis clubbing or edema. Skin is without rash or lesion. Neurologic examination cannot be assessed. - Labs CBC & Chem 7: 05/21/23 05:47 05/21/23 05:47 Labs: Abnormal Lab Results - Last 24 Hours (Table) 05/20/23 05/20/23 05/21/23 Range/Units 11:56 13:39 05:47 WBC 12.2 H (3.8-10.6) k/uL RBC 4.25 L (4.30-5.90) m/uL MCV 104.6 H (80.0-100.0) fL MCHC 30.8 L (31.0-37.0) g/dL Neutrophils # 9.2 H (1.3-7.7) k/uL ABG pH 7.31 L (7.35-7.45) ABG pCO2 71 H* (35-45) mmHg ABG pO2 397 H (83-108) mmHg ABG HCO3 35 H (21-25) mmol/L ABG Total CO2 37 H (19-24) mmol/L ABG O2 Saturation 99.2 H (94-97) % Creatinine (0.66-1.25) mg/dL Glucose (74-99) mg/dL POC Glucose (mg/dL) (70-110) mg/dL Calcium (8.4-10.2) mg/dL Urine Protein 1+ H (Negative) Urine Ketones 2+ H (Negative) Urine WBC 6 H (0-5) /hpf Urine Bacteria Rare H (None) /hpf Hyaline Casts 9 H (0-2) /lpf Urine Mucus Occasional H (None) /hpf 05/21/23 05/21/23 05/21/23 Range/Units 05:47 06:02 06:03 WBC (3.8-10.6) k/uL RBC (4.30-5.90) m/uL MCV (80.0-100.0) fL MCHC (31.0-37.0) g/dL Neutrophils # (1.3-7.7) k/uL ABG pH (7.35-7.45) ABG pCO2 (35-45) mmHg ABG pO2 117 H (83-108) mmHg ABG HCO3 30 H (21-25) mmol/L ABG Total CO2 31 H (19-24) mmol/L ABG O2 Saturation 98.2 H (94-97) % Creatinine 0.47 L (0.66-1.25) mg/dL Glucose 58 L (74-99) mg/dL POC Glucose (mg/dL) 69 L (70-110) mg/dL Calcium 8.2 L (8.4-10.2) mg/dL Urine Protein (Negative) Urine Ketones (Negative) Urine WBC (0-5) /hpf Urine Bacteria (None) /hpf Hyaline Casts (0-2) /lpf Urine Mucus (None) /hpf Microbiology - Last 24 Hours (Table) 05/20/23 11:36 Gram Stain - Preliminary Sputum Assessment and Plan Assessment: S/P intubation and mechanical ventilation, 05/20/2020, secondary to respiratory compromise and stridor, in a patient with a known history of laryngeal carcinoma. History of COPD, with chronic hypercapnic respiratory failure. History of syncope. Graves' disease. Diverticular disease. Ongoing tobacco use with nicotine addiction. History of marijuana use. Plan: Plan dated 05/20/2023. Patient is seen in the emergency department. He is intubated, and sedated, with propofol, and Versed. The patient will eventually move out to the intensive care unit. Additional recommendations and suggestions are forthcoming. We will implement the vent bundle orders, and ICU admission orders. I also told the nurse, that she could start him on some Dilaudid, 1 mg IV, every 2 hours as needed, and even increase of propofol up to 75 mcg/kg/m. We will attempt to get the patient off the Versed drip. The patient will have labs, x-rays, in the morning, along with a blood gas. In addition, the patient will be started on duo nebs, every 4 hours [id number]. The patient will also need GI and DVT prophylaxis. The patient be seen by ear nose and throat physician, for tracheostomy. Plan dated 05/21/2023. The patient will be seen by the ear nose and throat physician today, and hopefully schedule for tracheostomy. Other than that, the patient seemed to have an uneventful night. He remains on propofol at 50 mcg/kg/m. The Versed drip is been turned off. We also added some Dilaudid, 1 mg, every 2 hours when necessary pain. His ventilator settings are appropriate, and his gas exchange and ventilation or good. His FiO2 was dropped from 50-40%. Laboratory data, x- rays, and all medications are reviewed. Prognosis is certainly guarded. We will continue to follow make recommendations along the way. Time with Patient: Greater than 30
[2023-05-21] MEDS ORDERED: SODIUM CHLORIDE 0.9% 50 ML with ceFAZolin 2,000 MG IV ONE ×2 (11:18)
[2023-05-21] MEDS ORDERED: LIDOCAINE 1%-EPI 1:100,000 50 ML VIAL SQ ONE ×2 (11:23)
--- NOTE | 2023-05-21 12:35 | P.PN ---
Progress Note - Text 05/20/23 57-year-old male with the laryngeal carcinoma, I was requested by the ER physician who performed a fiberoptic intubation, the patient was having difficulty in breathing and became unresponsive. I attempted fiberoptic intubation, it wasn't easy as the patient had normal thick secretions and I was unable to visualize. We then used glides scope and it was inserted very gently to prevent bleeding. I tried to insert the fiberoptic scope but was unsuccessful. I then used an ET tube and was able to successfully intubated the patient the placement of the tube was confirmed by the end tidal CO2 monitor. Patient was transferred to the care of ER physician
[2023-05-21] MEDS: MIDAZOLAM HCL 50 MG in SODIUM CHLORIDE 0.9% 40 ML IV SCH (12:57)
[2023-05-21 13:15] LABS: Glucose,Whole Blood 83 mg/dL (70-110)
--- NOTE | 2023-05-21 13:38 | XR ---
EXAMINATION TYPE: XR chest 1V portable DATE OF EXAM: 05/21/2023 1:12 PM CLINICAL INDICATION:Male, 57 years old with history of s/p trach placement; [facility] COMPARISON: Chest radiographs from 05/21/2023 TECHNIQUE: XR chest 1V portable Frontal view of the chest. FINDINGS: Lungs/Pleura: There is no evidence of pleural effusion, focal consolidation, or pneumothorax. Pulmonary vascularity: Unremarkable. Heart/mediastinum: Cardiomediastinal silhouette is unremarkable. Musculoskeletal: No acute osseous pathology. Right-sided remote appearing rib fractures. Other findings: None Lines/Tubes: Tracheostomy cannula tip projecting over the trachea. Nasogastric tube with its distal tip and side-port projecting under the diaphragm. IMPRESSION: 1. Tracheostomy cannula appears in appropriate position. 2. No acute cardiopulmonary disease/process. 3. COPD changes.
--- NOTE | 2023-05-21 15:31 | OP ---
OPERATIVE REPORT DATE OF SERVICE : 05/20/2023 PREOPERATIVE DIAGNOSIS: Obstructed airway. POSTOPERATIVE DIAGNOSIS: Obstructed airway. ANESTHESIA: General. PROCEDURE PERFORMED: Emergency Tracheotomy. COMPLICATIONS: None. ESTIMATED BLOOD LOSS: Less than 15 mL. INDICATIONS: It took approximately 50 minutes, normally this procedure takes about 20 minutes to 25 minutes, because of the patient's distorted anatomy. It was noted that the patient's anatomy was quite distorted because of the large laryngeal carcinoma and soft tissue laryngeal swelling/edema( due to the side effects of his radiation treatment) that was present. This necessitated extended operating time. In addition to this, the patient's cricoid, one of the major landmarks to be found when doing a tracheotomy, was noted to be extremely low and near the patient's sternal notch. Therefore, the operative procedure took 50 minutes instead of the usual 20 minutes or so. Estimated blood loss was less than 15 mL. DESCRIPTION OF PROCEDURE: The patient was placed on the operating table in supine position. After uneventful induction, satisfactory general anesthesia was obtained. The patient had previously been intubated on an emergency basis in the emergency room. After the patient was prepped and draped, the appropriate landmarks were identified, namely the thyroid notch, the cricoid, and the proposed incision was to be located approximately 2 fingerbreadths above the sternal notch. As noted above. The patient's cricoid was extremely low. Therefore, the proposed incision was outlined using a Codman marker approximately 2 fingerbreadths above the sternal notch. It was elected to do a horizontal incision. The proposed incision was infiltrated with approximately 4 mL of 0.5% xylocaine with epinephrine 1:100,000. Next, using a #15 scalpel, incision was made through skin, subcutaneous tissue and fat down to the level of the platysmal muscle. Next, using a mosquito hemostat and blunt dissection, the dissection was carried out in the midline and was carefully done in such a fashion as not to injure any vascular structures. The fascia overlying the strap muscles was identified. In addition to this, the isthmus of the thyroid gland was identified. The isthmus of the thyroid gland was cut partially using electrocautery. Dissection was continued using a combination of blunt dissection with mosquito hemostats and peanuts. The fascia overlying the strap muscle was incised and dissection again was carried out in the midline. At this point, the cricoid bone was subsequently identified. A tracheal hook was placed in the cricoid bone and by doing this, this allowed the trachea to be elevated out of the chest cavity. Using peanuts, sharp dissection and blunt dissection, the tracheal rings were finally identified and all of the soft tissue substance/etc., were cleaned off the tracheal ring such that 3 tracheal rings were identified. Normally, the tracheotomy is made between the 3rd and 4th tracheal rings. However, because the patient's 4th ring was so low, there was concern about possible injury to a significant vascular structure. Therefore, it was decided to make the tracheostomy incision between the 2nd and 3rd tracheal rings. It should be noted that the trachea rings were felt to be quite calcified, which is unusual. The space between the 2nd and 3rd tracheal ring was subsequently incised with a #11 stab blade. Prior to doing this, the Anesthesia Department deflated the patient's endotracheal cuff and slowly retracted the endotracheal tube out of the trachea, but did not remove it completely. Using a tracheal dilator, the incision was expanded. An attempt was made to make a small window in one of the tracheal rings, but it was found that both the upper and lower tracheal rings were quite calcified and therefore could not be incised even with a pair of Esteves scissors. Therefore, using the tracheal dilator, the area was opened in the usual customary fashion. Following this, a #8 Shiley fenestrated tracheostomy tube was inserted using the obturator in the usual and customary fashion. This was done in an atraumatic fashion. The Anesthesia Department completely extubated the patient at this point and attached their anesthesia circuit to the tracheostomy tube and ventilated the patient. The Anesthesia Department signified that the ventilation was good. The patient was well oxygenated and all signs were positive with respect to the tube being in a good position. The tracheostomy cuff had been inflated with approximately 10 mL of air. There was minimal bleeding during this procedure, but again because of the low riding cricoid it made the surgery difficult because all of the anatomy was quite distorted. Next, tracheostomy tube was sewn to the skin using a #4 nylon suture in an interrupted fashion. Following this, a tracheostomy sponge was placed underneath the tracheostomy. The tracheostomy collar was then attached in the usual fashion. At this point, the procedure was terminated. It is to be noted that during this patient's surgery, the anatomy was quite distorted and this extended the operating time to approximately 50 to 55 minutes. There were no intraoperative complications. Estimated blood loss was less than 15 mL. At this point, the procedure was terminated. There were no intraoperative complications. Patient tolerated procedure and was returned to recovery room in satisfactory condition. All of the equipment for his #8 Shiley fenestrated tracheostomy tube will be sent with him to the ICU. We will get an x-ray of the tracheostomy while the patient is in the ICU to verify that it is in the appropriate position. Estimated extended operating time 50 minutes. MMODL / IJN: [id number] / MTDD
--- NOTE | 2023-05-21 16:40 | P.PN ---
Subjective Progress Note Date: 05/21/23 Principal diagnosis: respiratory failure secondary to larynx mass The patient reports he is doing OK today. He notes mild soreness along the neck at the trach site. He is frustrated he cannot try to eat/drink. Objective - Vital Signs Vital signs: Vital Signs Temp 98.0 F 05/21/23 13:00 Pulse 88 05/21/23 16:00 Resp 16 05/21/23 16:00 BP 151/79 05/21/23 16:00 Pulse Ox 95 05/21/23 16:00 FiO2 35 05/21/23 16:00 Intake & Output 05/20/23 05/21/23 05/21/23 18:59 06:59 18:59 Intake Total 3341.363 1397.537 732.967 Output Total 525 810 185 Balance 2816.363 587.537 547.967 Weight 60.781 kg 64.9 kg 64.9 kg Intake: IV 1100 550 Sodium Chloride 0.9% 1, 1100 500 000 ml @ 100 mls/hr IV . Q10H [facility] Rx#:[id number] Intake, IV Titration 3341.363 297.537 182.967 Amount Magnesium Sulfate-D5w Pmx 100 1 gm In Dextrose/Water 1 100ml.bag @ 100 mls/hr IVPB ONCE ONE Rx#: [id number] Midazolam HCl 50 mg In 8.434 7.117 Sodium Chloride 0.9% 40 ml @ 1 MG/HR 1 mls/hr IV .Q24H [facility] Rx#:[id number] Norepinephrine 4 mg In 52.644 Sodium Chloride 0.9% 250 ml @ 0.02 MCG/KG/MIN 4. 632 mls/hr IV .Q24H [facility] Rx#:[id number] Sodium Chloride 0.9% 1, 200 000 ml @ 100 mls/hr IV . Q10H [facility] Rx#:[id number] Sodium Chloride 0.9% 1, 2000 000 ml @ 999 mls/hr IV . Q1H1M [facility] Rx#:[id number] Sodium Chloride 0.9% 1, 1000 000 ml @ 999 mls/hr IV . Q1H1M [facility] Rx#:[id number] propofoL 1,000 mg In 132.929 137.776 182.967 Empty Bag 1 bag @ 15 MCG/ KG/MIN 5.47 mls/hr IV . [id number] [facility] Rx#:[id number] Output: Gastric Drainage 350 Urine 525 460 170 Estimated Blood Loss 15 Other: Voiding Method Indwelling Catheter Indwelling Catheter Indwelling Catheter - Constitutional General appearance: Present: no acute distress - EENT Eyes: Present: EOMI, PERRLA ENT: Present: hearing grossly normal - Neck Neck: Present: other (midline trach present) - Respiratory Respiratory: bilateral: CTA - Cardiovascular Rhythm: regular - Gastrointestinal General gastrointestinal: Absent: distended, tenderness - Labs CBC & Chem 7: 05/21/23 05:47 05/21/23 05:47 Labs: Abnormal Lab Results - Last 24 Hours (Table) 05/21/23 05/21/23 05/21/23 Range/Units 05:47 05:47 06:02 WBC 12.2 H (3.8-10.6) k/uL RBC 4.25 L (4.30-5.90) m/uL MCV 104.6 H (80.0-100.0) fL MCHC 30.8 L (31.0-37.0) g/dL Neutrophils # 9.2 H (1.3-7.7) k/uL ABG pO2 (83-108) mmHg ABG HCO3 (21-25) mmol/L ABG Total CO2 (19-24) mmol/L ABG O2 Saturation (94-97) % Creatinine 0.47 L (0.66-1.25) mg/dL Glucose 58 L (74-99) mg/dL POC Glucose (mg/dL) 69 L (70-110) mg/dL Calcium 8.2 L (8.4-10.2) mg/dL 05/21/23 Range/Units 06:03 WBC (3.8-10.6) k/uL RBC (4.30-5.90) m/uL MCV (80.0-100.0) fL MCHC (31.0-37.0) g/dL Neutrophils # (1.3-7.7) k/uL ABG pO2 117 H (83-108) mmHg ABG HCO3 30 H (21-25) mmol/L ABG Total CO2 31 H (19-24) mmol/L ABG O2 Saturation 98.2 H (94-97) % Creatinine (0.66-1.25) mg/dL Glucose (74-99) mg/dL POC Glucose (mg/dL) (70-110) mg/dL Calcium (8.4-10.2) mg/dL Microbiology - Last 24 Hours (Table) 05/20/23 11:36 Gram Stain - Preliminary Sputum Assessment and Plan Assessment: Mr. 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 He completed 1 week of chemo- radiation ( treamtents). He suffered a respiratory failure during his radiation treatment on 05/20/23 and was taken to the ER after a code was called. The patient has since had a trach placed and is doing better. 1. Respiratory Distress: Improved, was likely secondary to acute edema from larynx mass. Appreciate ENT recs and greatly appreciate trach placement. 2. Larynx cancer: As noted above, the patient was on treamtent but will now have his therapy placed on hold. Need speech/swallow eval. Request surgery eval for PEG (patient likely to need this even if he passes swallow study due to ongoing treatment). We will continue to follow with the patient. Time with Patient: Less than 30
[2023-05-21 18:14] LABS: Glucose,Whole Blood 86 mg/dL (70-110)
[2023-05-21] MEDS: NOREPINEPHRINE 4 MG in SODIUM CHLORIDE 0.9% 250 ML IV SCH (19:32)
[2023-05-21 20:22] LABS: Glucose,Whole Blood 81 mg/dL (70-110)
[2023-05-21 22:06] LABS: Glucose,Whole Blood 80 mg/dL (70-110)
[2023-05-22 00:01] LABS: Glucose,Whole Blood 78 mg/dL (70-110)
--- NOTE | 2023-05-22 02:07 | CONS ---
CONSULTATION REASON FOR CONSULTATION: Possible emergency tracheostomy. HISTORY OF PRESENT ILLNESS: This patient is a 57-year-old male who is being seen in [facility]. The patient apparently was in the [facility] section of the hospital in the process of resuming radiation for a carcinoma of the larynx. The patient stated that he can only sleep standing up. He had previously been seen at [facility] and was diagnosed and at that time was told that he needed to have a tracheostomy to prevent his airway from obstructing. The patient declined the tracheostomy. While he was in [place] at [facility] when they placed him in a supine position, he totally obstructed, went into respiratory arrest and was subsequently taken over to [facility]. The Anesthesia Department was consulted. I also was consulted to [facility] for possible emergency tracheostomy. Fortunately, the Anesthesia Department was able, with the assistance of a GlideScope to intubate the patient. The patient was subsequently transferred to ICU. The patient is obviously not available for any type of historical information. A CT scan from [facility] shows that he had a very large glottic carcinoma plus severe supraglottic swelling/edema secondary to recent radiation treatments to the the larynx. The tumor mainly involved the entire right true vocal cord/false vocal cord and completely obstructing the laryngeal introitus. PAST MEDICAL HISTORY: Reveals the patient has no known allergies. MEDICATIONS: His home medications include, 1. Xanax. 2. Emend. 3. Herrin. 4. Zyprexa. 5. Prilosec. 6. Zofran. SOCIAL HISTORY: The patient is known to be a heavy smoker. Apparently, despite his diagnosis 2 months ago, he continued to smoke cigarettes. He states that he can only sleep in the sitting position. PHYSICAL EXAMINATION: GENERAL: This patient is a 57-year-old male who is currently intubated and on ventilator. HEENT: The patient is normocephalic. Tympanic membranes are normal. Middle ear space is free of any fluid or infection. Pupils are equal, round, and reactive to light and accommodation. Intranasal examination reveals moderate septal deviation. Remainder of the head and neck exam is unremarkable.Exam of the larynx is deferred at this time CHEST/CARDIOVASCULAR: Lungs poon are clear to percussion auscultation. The patient is in regular sinus rhythm. ABDOMEN: No evidence of any masses, megaly or tenderness. The abdomen is soft. SKIN: Unremarkable. Remainder of physical exam is unremarkable. IMPRESSION: Obstructive laryngeal lesion, carcinoma of the larynx. PLAN: I will see the patient again tomorrow in the a.m. on 05/21/2023 and at that time, we will get the patient scheduled for a tracheostomy under a controlled situation in the operating room under general anesthesia. I want to take this opportunity to thank you for allowing me to assist in the care of your patient. If I can be of any further assistance, please feel free to call my office. MMODL / IJN: [id number] / MTDD
[2023-05-22] MEDS: HYDROmorphone 1 MG/ML 1 ML SYRINGE IVP PRN ×7 (03:04→21:08)
[2023-05-22 03:22] LABS: Glucose,Whole Blood 72 mg/dL (70-110)
[2023-05-22 04:46] LABS: Basophils % (A) 0 %; Eosinophils # (A) 0.1 k/uL (0-0.7); Eosinophils % (A) 1 %; HCT 42.8 % (39.0-53.0); HGB 13.4 gm/dL (13.0-17.5); Lymphocytes # (A) 1.2 k/uL (1.0-4.8); Lymphocytes % (A) 11 %; MCH 32.2 pg (25.0-35.0); MCHC 31.4 g/dL (31.0-37.0); MCV 102.6 fL (80.0-100.0); Macrocytosis Slight; Mean Platelet Volume 8.3; Monocytes # (A) 0.7 k/uL (0-1.0); Monocytes % (A) 7 %; Neutrophils # (A) 8.4 k/uL (1.3-7.7); Neutrophils % (A) 80 %; Platelet Count 175 k/uL (150-450); RBC 4.17 m/uL (4.30-5.90); RDW 12.1 % (11.5-15.5); WBC 10.5 k/uL (3.8-10.6)
[2023-05-22] MEDS ORDERED: DEXTROSE 50% SYRINGE 50 ML IVP PRN ×2 (04:47)
[2023-05-22 05:01] LABS: African American GFR (CKD) >90 (>60 ml/min/1.73 sqM); Anion Gap 4 mmol/L; Blood Urea Nitrogen 8 mg/dL (9-20); Carbon Dioxide 30 mmol/L (22-30); Chloride 103 mmol/L (98-107); Glucose 73 mg/dL (74-99); Non-African American GFR(CKD) >90 (>60 ml/min/1.73 sqM); Sodium 137 mmol/L (137-145)
[2023-05-22] MEDS: SODIUM CHLORIDE 0.9% 1,000 ML IV SCH ×2 (06:19→14:54)
[2023-05-22 06:53] LABS: Glucose,Whole Blood 73 mg/dL (70-110)
[2023-05-22] MEDS: PANTOPRAZOLE 40 MG/10 ML VIAL IVP SCH (07:53)
[2023-05-22] MEDS: CHLORHEXIDINE GLUCONATE 15 ML CUP MUCOUS MEM SCH ×2 (07:53→21:08)
--- NOTE | 2023-05-22 10:49 | P.PN ---
Subjective Progress Note Date: 05/22/23 Principal diagnosis: Laryngeal carcinoma. Pulmonary consult dated 05/20/2023. 57-year-old male with history of laryngeal carcinoma, who apparently was over at the [facility], for his first radiation treatment. He apparently was laying flat, became short of breath, and had a change in mental status, and a CODE BLUE was called. The patient never lost pulses, and he never stopped breathing. The rapid response team responded to the CODE BLUE and the patient was sent to the ER to be evaluated. In the emergency room, the patient apparently was having significant respiratory difficulty, and he was stridorous, and for that reason, he was intubated, by anesthesia, using fiberoptics. The patient is currently in the emergency department. The plan is for tracheostomy, possibly tomorrow. Urine nose throat doctor has been consulted. Currently, the patient is on the ventilator, with settings of assist control, rate 20, tidal volume 450, FiO2 50%, and PEEP of 5. He has propofol running at 50 mcg/kg/m, Versed 5 mg an hour, and saline at 100 mL an hour. In addition to laryngeal carcinoma, he has a history of COPD, syncope, Graves' disease, diverticular disease, as a current every day smoker. He has had no treatment for his cancer as yet. Today was the first radiation treatment. White count 11.5, hemoglobin 16.9, hematocrit 54, and platelet count 233,000. Blood gases show pO2 397, pCO2 71, and a pH is 7.31. Sodium 135, potassium 4.4, chlorides 91, CO2 40, BUN 22, and creatinine 0.57. Based on the bicarbonate concentration of 40, the patient's baseline PaCO2 is right around 68+ or -2 mmHg. Chest x-ray shows borderline heart size, and interstitial prominence. Progress note dated 05/21/2023. 57-year-old male that we saw yesterday in the emergency department. The patient has a recent diagnosis of laryngeal carcinoma, and was at the [facility] yesterday, his first radiation treatment, at which time, he had mental status changes, and respiratory difficulty, ended up in the emergency department, and was intubated. He is seen today in the intensive care unit, room 263. He remains on mechanical ventilator. His ventilator settings include the volume assist control, rate 20, tidal volume 450, FiO2 50%, and PEEP of 5. Blood gases are pO2 117, pCO2 of 43, and pH is 7.45. The FiO2 was reduced from 50%, down to 40%. The patient is currently on saline at 100 mL an hour, and propofol at 50 mcg/kg/m. Versed has been weaned off. The patient is to be seen by ear nose and throat physician, for possible tracheostomy. White count 12.2, hemoglobin 13.7, hematocrit 44.4, with a normal platelet count. Sodium 137, potassium 4.4, chlorides 105, CO2 24, anion gap normal, BUN 15, and creatinine 0.47. Chest x- ray shows no acute cardiopulmonary disease. Computed tomography scan of the neck shows an ill-defined right laryngeal mass. Progress note dated 05/22/2023. 57-year-old male, seen a couple days ago in the emergency department. The patient was recently discovered to have laryngeal carcinoma, and was over the cancer center, to begin treatment, with radiation. Because of worsening respiratory status, he was transferred over to the emergency department, where he was intubated, because of a compromised airway, and stridor. He was actually intubated by anesthesia I believe. Anyway, the patient underwent a tracheostomy, yesterday, and is currently in the intensive care unit. He's postop day #1, status post tracheostomy. He is currently on a 40% trach collar. He is getting saline at 100 mL an hour. He is in no distress. White count 10.5, hemoglobin 13.4, hematocrit 42.8, with a normal platelet count. Sodium 137, potassium 4, chlorides 103, CO2 30, anion gap 4, BUN 8, and creatinine 0.48. Chest x-ray show some mild basilar atelectasis, and a midline tracheostomy tube. Objective - Vital Signs Vital signs: Vital Signs Temp 98.2 F 05/22/23 08:00 Pulse 87 05/22/23 08:00 Resp 16 05/22/23 08:00 BP 104/61 05/22/23 08:00 Pulse Ox 93 L 05/22/23 08:17 FiO2 40 05/22/23 08:17 Intake & Output 05/21/23 05/22/23 05/22/23 18:59 06:59 18:59 Intake Total 0047.603 7473 100 Output Total 185 850 0 Balance 947.967 250 100 Weight 64.9 kg 63.2 kg Intake: IV 950 1100 100 Sodium Chloride 0.9% 1, 900 1100 100 000 ml @ 100 mls/hr IV . Q10H [facility] Rx#:[id number] Intake, IV Titration 182.967 Amount propofoL 1,000 mg In 182.967 Empty Bag 1 bag @ 15 MCG/ KG/MIN 5.47 mls/hr IV . [id number] [facility] Rx#:[id number] Output: Urine 170 850 0 Estimated Blood Loss 15 Other: Voiding Method Indwelling Catheter Indwelling Catheter - Exam No acute distress, laying in bed, breathing normally, through a tracheostomy tube. HEENT examination is grossly unremarkable. Neck supple. Full range of motion. No adenopathy thyromegaly or neck vein distention. The patient has a midline tracheostomy. A trach collar is noted over the tracheostomy tube. Cardiovascular examination reveals regular rhythm rate. S1-S2 normal. No S3 or S4. No discernible murmur noted. Heart rate 87 bpm. Lungs reveal clear breath sounds. Breath sounds are equal bilaterally. No adventitious lung sounds including wheezes rhonchi or crackles. Saturations are 95 %. Abdomen soft bowel sounds are heard. No masses or tenderness. Extremities are intact. No cyanosis clubbing or edema. Skin is without rash or lesion. Neurologic examination cannot be assessed. - Labs CBC & Chem 7: 05/22/23 03:51 05/22/23 03:51 Labs: Abnormal Lab Results - Last 24 Hours (Table) 05/22/23 05/22/23 Range/Units 03:51 03:51 RBC 4.17 L (4.30-5.90) m/uL MCV 102.6 H (80.0-100.0) fL Neutrophils # 8.4 H (1.3-7.7) k/uL BUN 8 L (9-20) mg/dL Creatinine 0.48 L (0.66-1.25) mg/dL Glucose 73 L (74-99) mg/dL Calcium 8.0 L (8.4-10.2) mg/dL Microbiology - Last 24 Hours (Table) 05/20/23 11:36 Gram Stain - Preliminary Sputum Assessment and Plan Assessment: S/P intubation and mechanical ventilation, 05/20/2020, secondary to respiratory compromise and stridor, in a patient with a known history of laryngeal carcinoma. Postop day #1, status post tracheostomy. History of COPD, with chronic hypercapnic respiratory failure. History of syncope. Graves' disease. Diverticular disease. Ongoing tobacco use with nicotine addiction. History of marijuana use. Plan: Plan dated 05/20/2023. Patient is seen in the emergency department. He is intubated, and sedated, with propofol, and Versed. The patient will eventually move out to the intensive care unit. Additional recommendations and suggestions are forthcoming. We will implement the vent bundle orders, and ICU admission orders. I also told the nurse, that she could start him on some Dilaudid, 1 mg IV, every 2 hours as needed, and even increase of propofol up to 75 mcg/kg/m. We will attempt to get the patient off the Versed drip. The patient will have labs, x-rays, in the morning, along with a blood gas. In addition, the patient will be started on duo nebs, every 4 hours [id number]. The patient will also need GI and DVT prophylaxis. The patient be seen by ear nose and throat physician, for tracheostomy. Plan dated 05/21/2023. The patient will be seen by the ear nose and throat physician today, and hopefully schedule for tracheostomy. Other than that, the patient seemed to have an uneventful night. He remains on propofol at 50 mcg/kg/m. The Versed drip is been turned off. We also added some Dilaudid, 1 mg, every 2 hours when necessary pain. His ventilator settings are appropriate, and his gas exchange and ventilation or good. His FiO2 was dropped from 50-40%. Laboratory data, x- rays, and all medications are reviewed. Prognosis is certainly guarded. We will continue to follow make recommendations along the way. Plan dated 05/22/2023. The patient is maintained in the intensive care unit, room 263. He is postoperative day #1, status post tracheostomy tube, done by Dr. Chen, ear nose and throat medicine. Currently, the patient has a 40% trach collar in place. The patient's getting saline at 100 mL an hour. I suspect the plan is to resume radiation treatment. The patient has not had any treatment as yet. Labs, x-rays, and medications are reviewed. If the patient is stable, later today, he can leave the intensive care unit. Respiratory status, and cardiovascular status, appear to be stable. Time with Patient: Greater than 30
--- NOTE | 2023-05-22 11:21 | P.PN ---
Subjective Progress Note Date: 05/22/23 No new complaints today. s/p tracheostomy General: intubated, sedated HEENT: normocephalic, atraumatic, no tracheal deviation Respiratory: symmetric chest rise, no cyanosis, ventilator dependent, stridor is present CVS: perfusing all extremities, no distal gangrene, no pitting edema GI: soft, ND : no SPT, no CVAT, weldon not present Neuro: sedated Hospital Course: 57-year-old man with a history of head and neck cancer with obstructing laryngeal mass present for respiratory failure, obtundation. Patient was in [facility] about to receive his first radiation treatment to his neck for laryngeal carcinoma, but prior to receiving treatment he had an episode of hypoxia, obtundation. CODE BLUE was called at the time, and patient was noted to be hypoxic to 50-60% saturation, was placed on nonrebreather and improved to mid 90s. Subsequently he was transferred to the emergency room for further vazquez luation. During his ER course, patient became more obtunded, requiring emergent intubation. Anesthesia was called for emergent intubation with possible need for surgical airway. ENT came to bedside in case tracheostomy was required. Anesthesia was able to get the patient intubated with great difficulty, during the procedure was notable that he had friable mucosa with easy bleeding of the mass. In the emergency room, patient was afebrile, 151/84, heart rate 115, 98% on 15 L of nonrebreather. ECG demonstrated leukocytosis to 11.5, MCV of 101.5. Basic metabolic panel showed sodium of 135, chloride 91, CO2 40, BUN 22, creatinine 1.57. Liver function tests are unremarkable. Troponin was less than 0.012. Coags are unremarkable. Initial pH on VBG was 7.08 with a pCO2 of 134. Following intubation, his ABG demonstrated pCO2 of 71, pH of 7.31. Chest x-ray showed normal-sized heart, clear parenchyma bilaterally, post intubation chest x-ray showed breathing tube in good position. EKG demonstrated sinus tachycardia with peaked P waves consistent with right atrial enlargement. Case was discussed with the emergency room provider at bedside, anesthesia, ENT physician - Patient was ultimately transferred to the intensive care unit for further management. Assessment: Acute hypercarbic respiratory failure Laryngeal mass causing upper airway obstruction Head and neck cancer Plan: Vitals: Afebrile, 116/60, heart rate 82, 97% on mechanical ventilator volume control 450, FiO2 50% Labs: White blood cell count 10.5., hemoglobin 13.4; BMP is reviewed and unremarkable; Images: Chest x-ray shows increased airspace opacity of RLL, hyperinflation consistent with COPD, tracheostomy in good position Consultation: rad onc note reviewed, they want eval for PEG tube. ENT op note r eviewed, pt is s/p tracheostomy b/w 2nd and 3rd tracheal ring ST consult placed Trach collar applied Gen surgery consult for PEG tube. Patient is full code Objective - Vital Signs Vital signs: Vital Signs Temp 98.2 F 05/22/23 08:00 Pulse 89 05/22/23 10:00 Resp 16 05/22/23 10:00 BP 104/72 05/22/23 10:00 Pulse Ox 92 L 05/22/23 10:00 FiO2 40 05/22/23 08:17 Intake & Output 05/21/23 05/22/23 05/22/23 18:59 06:59 18:59 Intake Total 3295.936 0480 200 Output Total 185 850 0 Balance 947.967 250 200 Weight 64.9 kg 63.2 kg Intake: IV 950 1100 200 Sodium Chloride 0.9% 1, 900 1100 200 000 ml @ 100 mls/hr IV . Q10H [facility] Rx#:[id number] Intake, IV Titration 182.967 Amount propofoL 1,000 mg In 182.967 Empty Bag 1 bag @ 15 MCG/ KG/MIN 5.47 mls/hr IV . [id number] [facility] Rx#:[id number] Output: Urine 170 850 0 Estimated Blood Loss 15 Other: Voiding Method Indwelling Catheter Indwelling Catheter Urinal # Voids 1 - Labs CBC & Chem 7: 05/22/23 03:51 05/22/23 03:51 Labs: Abnormal Lab Results - Last 24 Hours (Table) 05/22/23 05/22/23 Range/Units 03:51 03:51 RBC 4.17 L (4.30-5.90) m/uL MCV 102.6 H (80.0-100.0) fL Neutrophils # 8.4 H (1.3-7.7) k/uL BUN 8 L (9-20) mg/dL Creatinine 0.48 L (0.66-1.25) mg/dL Glucose 73 L (74-99) mg/dL Calcium 8.0 L (8.4-10.2) mg/dL Microbiology - Last 24 Hours (Table) 05/20/23 11:36 Gram Stain - Preliminary Sputum
--- NOTE | 2023-05-22 11:22 | XR ---
EXAMINATION TYPE: XR chest 1V portable DATE OF EXAM: 05/22/2023 COMPARISON: 05/21/2023 INDICATION: COPD TECHNIQUE: Single frontal view of the chest is obtained. FINDINGS: The heart size is normal. The pulmonary vasculature is normal. Bibasilar infiltrates are present. Tracheostomy tube is in the midline. IMPRESSION: 1. Bibasilar infiltrates. Correlate for subsegmental atelectasis. Follow-up can be performed.
[2023-05-22] MEDS: MIDAZOLAM HCL 50 MG in SODIUM CHLORIDE 0.9% 40 ML IV SCH (14:15)
[2023-05-23] MEDS: HYDROmorphone 1 MG/ML 1 ML SYRINGE IVP PRN ×5 (00:25→10:24)
[2023-05-23] MEDS: SODIUM CHLORIDE 0.9% 1,000 ML IV SCH ×2 (01:44→11:03)
[2023-05-23] MEDS: CHLORHEXIDINE GLUCONATE 15 ML CUP MUCOUS MEM SCH ×2 (07:41→20:27)
[2023-05-23] MEDS: PANTOPRAZOLE 40 MG/10 ML VIAL IVP SCH (07:55)
[2023-05-23 07:59] LABS: Basophils % (A) 0 %; Eosinophils # (A) 0.2 k/uL (0-0.7); Eosinophils % (A) 2 %; HCT 44.3 % (39.0-53.0); HGB 13.9 gm/dL (13.0-17.5); Lymphocytes # (A) 0.9 k/uL (1.0-4.8); Lymphocytes % (A) 7 %; MCHC 31.3 g/dL (31.0-37.0); MCV 102.2 fL (80.0-100.0); Macrocytosis Slight; Mean Platelet Volume 8.4; Monocytes # (A) 0.9 k/uL (0-1.0); Monocytes % (A) 7 %; Neutrophils # (A) 10.5 k/uL (1.3-7.7); Neutrophils % (A) 83 %; Platelet Count 176 k/uL (150-450); RBC 4.33 m/uL (4.30-5.90); RDW 12.4 % (11.5-15.5); WBC 12.7 k/uL (3.8-10.6)
[2023-05-23 08:22] LABS: African American GFR (CKD) >90 (>60 ml/min/1.73 sqM); Anion Gap 2 mmol/L; Blood Urea Nitrogen 6 mg/dL (9-20); Calcium 8.3 mg/dL (8.4-10.2); Carbon Dioxide 33 mmol/L (22-30); Chloride 100 mmol/L (98-107); Glucose 119 mg/dL (74-99); Non-African American GFR(CKD) >90 (>60 ml/min/1.73 sqM); Potassium 4.2 mmol/L (3.5-5.1); Sodium 135 mmol/L (137-145)
--- NOTE | 2023-05-23 10:26 | P.PN ---
Subjective Progress Note Date: 05/23/23 Principal diagnosis: Laryngeal carcinoma. Pulmonary consult dated 05/20/2023. 57-year-old male with history of laryngeal carcinoma, who apparently was over at the [facility] center, for his first radiation treatment. He apparently was laying flat, became short of breath, and had a change in mental status, and a CODE BLUE was called. The patient never lost pulses, and he never stopped breathing. The rapid response team responded to the CODE BLUE and the patient was sent to the ER to be evaluated. In the emergency room, the patient apparently was having significant respiratory difficulty, and he was stridorous, and for that reason, he was intubated, by anesthesia, using fiberoptics. The patient is currently in the emergency department. The plan is for tracheostomy, possibly tomorrow. Urine nose throat doctor has been consulted. Currently, the patient is on the ventilator, with settings of assist control, rate 20, tidal volume 450, FiO2 50%, and PEEP of 5. He has propofol running at 50 mcg/kg/m, Versed 5 mg an hour, and saline at 100 mL an hour. In addition to laryngeal carcinoma, he has a history of COPD, syncope, Graves' disease, diverticular disease, as a current every day smoker. He has had no treatment for his cancer as yet. Today was the first radiation treatment. White count 11.5, hemoglobin 16.9, hematocrit 54, and platelet count 233,000. Blood gases show pO2 397, pCO2 71, and a pH is 7.31. Sodium 135, potassium 4.4, chlorides 91, CO2 40, BUN 22, and creatinine 0.57. Based on the bicarbonate concentration of 40, the patient's baseline PaCO2 is right around 68+ or -2 mmHg. Chest x-ray shows borderline heart size, and interstitial prominence. Progress note dated 05/21/2023. 57-year-old male that we saw yesterday in the emergency department. The patient has a recent diagnosis of laryngeal carcinoma, and was at the [facility] center yesterday, his first radiation treatment, at which time, he had mental status changes, and respiratory difficulty, ended up in the emergency department, and was intubated. He is seen today in the intensive care unit, room 263. He remains on mechanical ventilator. His ventilator settings include the volume assist control, rate 20, tidal volume 450, FiO2 50%, and PEEP of 5. Blood gases are pO2 117, pCO2 of 43, and pH is 7.45. The FiO2 was reduced from 50%, down to 40%. The patient is currently on saline at 100 mL an hour, and propofol at 50 mcg/kg/m. Versed has been weaned off. The patient is to be seen by ear nose and throat physician, for possible tracheostomy. White count 12.2, hemoglobin 13.7, hematocrit 44.4, with a normal platelet count. Sodium 137, potassium 4.4, chlorides 105, CO2 24, anion gap normal, BUN 15, and creatinine 0.47. Chest x- ray shows no acute cardiopulmonary disease. Computed tomography scan of the neck shows an ill-defined right laryngeal mass. Progress note dated 05/22/2023. 57-year-old male, seen a couple days ago in the emergency department. The patient was recently discovered to have laryngeal carcinoma, and was over the [facility], to begin treatment, with radiation. Because of worsening respiratory status, he was transferred over to the emergency department, where he was intubated, because of a compromised airway, and stridor. He was actually intubated by anesthesia I believe. Anyway, the patient underwent a tracheostomy, yesterday, and is currently in the intensive care unit. He's postop day #1, status post tracheostomy. He is currently on a 40% trach collar. He is getting saline at 100 mL an hour. He is in no distress. White count 10.5, hemoglobin 13.4, hematocrit 42.8, with a normal platelet count. Sodium 137, potassium 4, chlorides 103, CO2 30, anion gap 4, BUN 8, and creatinine 0.48. Chest x-ray show some mild basilar atelectasis, and a midline tracheostomy tube. Progress note dated 05/23/2023. 57-year-old male, seen initially in the emergency department, with a diagnosis of respiratory failure secondary to newly diagnosed laryngeal cancer. The patient is status post tracheostomy, performed by Dr. Sams. The patient is seen today in room 263. Continues on trach collar 40%. He is getting saline at 100 mL an hour. The patient could be considered for possible transfer, out of the unit. The patient has not yet had any treatment for his laryngeal cancer. The other day when he was over at [facility], he was to have his initial treatment. Currently labs include a white count 12.7, hemoglobin 13.9, hematocrit 0.3, and a normal platelet count. Sodium 135, potassium 4.2, c hlorides 100, CO2 33, BUN 6, and creatinine 0.43. Chest x-ray from yesterday, she was a midline tracheostomy tube, and some bibasilar infiltrates/atelectasis. Objective - Vital Signs Vital signs: Vital Signs Temp 99.1 F 05/23/23 08:00 Pulse 106 H 05/23/23 08:00 Resp 20 05/23/23 08:00 BP 105/65 05/23/23 08:00 Pulse Ox 96 05/23/23 08:21 FiO2 40 05/23/23 08:21 Intake & Output 05/22/23 05/23/23 05/23/23 18:59 06:59 18:59 Intake Total 200 100 Output Total 0 Balance 200 100 Intake: IV 200 100 Sodium Chloride 0.9% 1, 200 100 000 ml @ 100 mls/hr IV . Q10H [facility] Rx#:[id number] Output: Urine 0 Other: Voiding Method Urinal Urinal Urinal # Voids 2 4 - Exam No acute distress, laying in bed, breathing normally, midline tracheostomy tube in place. HEENT examination is grossly unremarkable. Neck supple. Full range of motion. No adenopathy thyromegaly or neck vein distention. The patient has a midline tracheostomy. A trach collar is noted over the tracheostomy tube. Cardiovascular examination reveals regular rhythm rate. S1-S2 normal. No S3 or S4. No discernible murmur noted. Heart rate 87 bpm. Lungs reveal clear breath sounds. Breath sounds are equal bilaterally. No adventitious lung sounds including wheezes rhonchi or crackles. Saturations are 95 %, on 40% trach collar. Abdomen soft bowel sounds are heard. No masses or tenderness. Extremities are intact. No cyanosis clubbing or edema. Skin is without rash or lesion. Neurologic examination cannot be assessed. - Labs CBC & Chem 7: 05/23/23 07:43 05/23/23 07:43 Labs: Abnormal Lab Results - Last 24 Hours (Table) 05/23/23 05/23/23 Range/Units 07:43 07:43 WBC 12.7 H (3.8-10.6) k/uL MCV 102.2 H (80.0-100.0) fL Neutrophils # 10.5 H (1.3-7.7) k/uL Lymphocytes # 0.9 L (1.0-4.8) k/uL Sodium 135 L (137-145) mmol/L Carbon Dioxide 33 H (22-30) mmol/L BUN 6 L (9-20) mg/dL Creatinine 0.43 L (0.66-1.25) mg/dL Glucose 119 H (74-99) mg/dL Calcium 8.3 L (8.4-10.2) mg/dL Microbiology - Last 24 Hours (Table) 05/20/23 11:36 Gram Stain - Final Sputum Sputum Culture - Final Assessment and Plan Assessment: S/P intubation and mechanical ventilation, 05/20/2020, secondary to respiratory compromise and stridor, in a patient with a known history of laryngeal carcinoma . Postop day #2, status post tracheostomy. History of COPD, with chronic hypercapnic respiratory failure. History of syncope. Graves' disease. Diverticular disease. Ongoing tobacco use with nicotine addiction. History of marijuana use. Plan: Plan dated 05/20/2023. Patient is seen in the emergency department. He is intubated, and sedated, with propofol, and Versed. The patient will eventually move out to the intensive care unit. Additional recommendations and suggestions are forthcoming. We will implement the vent bundle orders, and ICU admission orders. I also told the nurse, that she could start him on some Dilaudid, 1 mg IV, every 2 hours as needed, and even increase of propofol up to 75 mcg/kg/m. We will attempt to get the patient off the Versed drip. The patient will have labs, x-rays, in the morning, along with a blood gas. In addition, the patient will be started on duo nebs, every 4 hours [id number]. The patient will also need GI and DVT prophylaxis. The patient be seen by ear nose and throat physician, for tr acheostomy. Plan dated 05/21/2023. The patient will be seen by the ear nose and throat physician today, and hopefully schedule for tracheostomy. Other than that, the patient seemed to have an uneventful night. He remains on propofol at 50 mcg/kg/m. The Versed drip is been turned off. We also added some Dilaudid, 1 mg, every 2 hours when necessary pain. His ventilator settings are appropriate, and his gas exchange and ventilation or good. His FiO2 was dropped from 50-40%. Laboratory data, x- rays, and all medications are reviewed. Prognosis is certainly guarded. We will continue to follow make recommendations along the way. Plan dated 05/22/2023. The patient is maintained in the intensive care unit, room 263. He is postoperative day #1, status post tracheostomy tube, done by Dr. Chen, ear nose and throat medicine. Currently, the patient has a 40% trach collar in place. The patient's getting saline at 100 mL an hour. I suspect the plan is to resume radiation treatment. The patient has not had any treatment as yet. Labs, x-rays, and medications are reviewed. If the patient is stable, later today, he can leave the intensive care unit. Respiratory status, and car diovascular status, appear to be stable. Plan dated 05/23/2023. The patient is seen today in room 263. He sitting up in a chair, next to his bed. He is getting saline at 100 mL an hour. A trach collar is in place 40%, over his tracheostomy tube. He appears not to have much distress. The patient does have a raspy, wet congested cough. He is coughing up small amounts of phlegm. Medications are all reviewed. Everything seems appropriate. Hopefully, this week, he will commence with radiation treatments. Time with Patient: Greater than 30
--- NOTE | 2023-05-23 10:40 | XR ---
EXAMINATION TYPE: XR abdomen 2V DATE OF EXAM: 05/23/2023 COMPARISON: None INDICATION: Abdominal distention TECHNIQUE: Single view abdomen upright view FINDINGS: Free air is evident. Normal colonic bowel gas is present. No mass effect is evident. Psoas margins are normal. No organomegaly is present. IMPRESSION: 1. Unremarkable Abdomen
--- NOTE | 2023-05-23 10:53 | P.PN ---
Subjective Progress Note Date: 05/23/23 No new complaints today. patient is awake and alert, communicating through writing. Has questions regarding PEG tube placement. Says he can swallow full liquids, but solid food is a challenge. Seen by gen surgery and abd XR ordered. 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 CODE BLUE was called at the time, and patient was noted to be hypoxic to 50-60% saturation, was placed on nonrebreather and improved to mid 90s. Subsequently he was transferred to the emergency room for further evaluation. During his ER course, patient became more obtunded, requiring emergent intubation. Anesthesia was called for emergent intubation with possible need for surgical airway. ENT came to bedside in case tracheostomy was required. Anesthesia was able to get the patient intubated with great difficult y, during the procedure was notable that he had friable mucosa with easy bleeding of the mass. In the emergency room, patient was afebrile, 151/84, heart rate 115, 98% on 15 L of nonrebreather. ECG demonstrated leukocytosis to 11.5, MCV of 101.5. Basic metabolic panel showed sodium of 135, chloride 91, CO2 40, BUN 22, creatinine 1.57. Liver function tests are unremarkable. Troponin was less than 0.012. Coags are unremarkable. Initial pH on VBG was 7.08 with a pCO2 of 134. Following intubation, his ABG demonstrated pCO2 of 71, pH of 7.31. Chest x-ray showed normal-sized heart, clear parenchyma bilaterally, post intubation chest x-ray showed breathing tube in good position. EKG demonstrated sinus tachycardia with peaked P waves consistent with right atrial enlargement. Case was discussed with the emergency room provider at bedside, anesthesia, ENT physician - Patient was ultimately transferred to the intensive care unit for further management. Assessment: Acute hypercarbic respiratory failure Laryngeal mass causing upper airway obstruction Head and neck cancer Plan: Vitals: Afebrile, 105/65, heart rate 106, 91% on trach collar, FiO2 40% Labs: White blood cell count 12.7., hemoglobin 13.5; BMP shows Na of 135, CO2 33, BUN 6 Cr 0.43; Images: Abd XR negative for air fluid levels, personally reviewed and interpreted Consultation: Gen sx note reviewed, plan for PEG tube on wednesday Advance patient to full liquids Storage Management Consultant consult PEG tube wednesday Add tylenol 650mg PO q4h PRN and motrin 400mg q6h PRN Patient is full code Objective - Vital Signs Vital signs: Vital Signs Temp 99.1 F 05/23/23 08:00 Pulse 106 H 05/23/23 08:00 Resp 20 05/23/23 08:00 BP 105/65 05/23/23 08:00 Pulse Ox 96 05/23/23 08:21 FiO2 40 05/23/23 08:21 Intake & Output 05/22/23 05/23/23 05/23/23 18:59 06:59 18:59 Intake Total 200 100 Output Total 0 Balance 200 100 Intake: IV 200 100 Sodium Chloride 0.9% 1, 200 100 000 ml @ 100 mls/hr IV . Q10H [facility] Rx#:[id number] Output: Urine 0 Other: Voiding Method Urinal Urinal Urinal # Voids 2 4 - Labs CBC & Chem 7: 05/23/23 07:43 05/23/23 07:43 Labs: Abnormal Lab Results - Last 24 Hours (Table) 05/23/23 05/23/23 Range/Units 07:43 07:43 WBC 12.7 H (3.8-10.6) k/uL MCV 102.2 H (80.0-100.0) fL Neutrophils # 10.5 H (1.3-7.7) k/uL Lymphocytes # 0.9 L (1.0-4.8) k/uL Sodium 135 L (137-145) mmol/L Carbon Dioxide 33 H (22-30) mmol/L BUN 6 L (9-20) mg/dL Creatinine 0.43 L (0.66-1.25) mg/dL Glucose 119 H (74-99) mg/dL Calcium 8.3 L (8.4-10.2) mg/dL Microbiology - Last 24 Hours (Table) 05/20/23 11:36 Gram Stain - Final Sputum Sputum Culture - Final
[2023-05-23] MEDS: IBUPROFEN 400 MG TAB PO PRN ×3 (11:02→22:11)
--- NOTE | 2023-05-23 12:12 | P.GSCN ---
History of Present Illness Consult date: 05/22/23 History of present illness: Patient with recent trach. PEG tube placement for feeds requested. All questions addressed. Past Medical History Past Medical History: Cancer, COPD, Syncope, Thyroid Disorder Additional Past Medical History / Comment(s): Graves disease, diverticulosis History of Any Multi-Drug Resistant Organisms: None Reported Additional Past Surgical History / Comment(s): vasectomy, biopsy of throat Past Anesthesia/Blood Transfusion Reactions: No Reported Reaction Past Psychological History: No Psychological Hx Reported Smoking Status: Current every day smoker Past Alcohol Use History: Occasional Past Drug Use History: Marijuana - Past Family History Father History Unknown: Yes Medications and Allergies Home Medications Medication Instructions Recorded Confirmed Type ALPRAZolam [Xanax] 0.25 mg PO DAILY 05/20/23 05/20/23 History Aprepitant [Emend] 80 mg PO DIRECTED 05/20/23 05/20/23 History HYDROcodone/APAP 5-325MG [Lamont 1 tab PO Q4HR PRN 05/20/23 05/20/23 History 5-325] Lido/Mdryl/Dexa/Aceta 5 ml PO TID PRN 05/20/23 05/20/23 History OLANZapine [ZyPREXA] 2.5 mg PO DIRECTED 05/20/23 05/20/23 History Omeprazole [PriLOSEC] 20 mg PO AC-BID 05/20/23 05/20/23 History Ondansetron [Zofran] 4 - 8 mg PO Q4H PRN 05/20/23 05/20/23 History Allergies Allergy/AdvReac Type Severity Reaction Status Date / Time No Known Allergies Allergy Verified 05/20/23 09:31 Surgical - Exam Vital Signs Temp Pulse Resp BP Pulse Ox 98.0 F 117 H 30 H 123/83 99 05/20/23 09:17 05/20/23 09:17 05/20/23 09:17 05/20/23 09:17 05/20/23 09:17 Results - Labs 05/22/23 03:51 05/22/23 03:51 Abnormal Lab Results - Last 24 Hours (Table) 05/22/23 05/22/23 Range/Units 03:51 03:51 RBC 4.17 L (4.30-5.90) m/uL MCV 102.6 H (80.0-100.0) fL Neutrophils # 8.4 H (1.3-7.7) k/uL BUN 8 L (9-20) mg/dL Creatinine 0.48 L (0.66-1.25) mg/dL Glucose 73 L (74-99) mg/dL Calcium 8.0 L (8.4-10.2) mg/dL Microbiology - Last 24 Hours (Table) 05/20/23 11:36 Gram Stain - Final Sputum Sputum Culture - Final Diabetes panel 05/22/23 Range/Units 03:51 Sodium 137 (137-145) mmol/L Potassium 4.0 (3.5-5.1) mmol/L Chloride 103 (98-107) mmol/L Carbon Dioxide 30 (22-30) mmol/L BUN 8 L (9-20) mg/dL Creatinine 0.48 L (0.66-1.25) mg/dL Glucose 73 L (74-99) mg/dL Calcium 8.0 L (8.4-10.2) mg/dL Calcium panel 05/22/23 Range/Units 03:51 Calcium 8.0 L (8.4-10.2) mg/dL Pituitary panel 05/22/23 Range/Units 03:51 Sodium 137 (137-145) mmol/L Potassium 4.0 (3.5-5.1) mmol/L Chloride 103 (98-107) mmol/L Carbon Dioxide 30 (22-30) mmol/L BUN 8 L (9-20) mg/dL Creatinine 0.48 L (0.66-1.25) mg/dL Glucose 73 L (74-99) mg/dL Calcium 8.0 L (8.4-10.2) mg/dL Adrenal panel 05/22/23 Range/Units 03:51 Sodium 137 (137-145) mmol/L Potassium 4.0 (3.5-5.1) mmol/L Chloride 103 (98-107) mmol/L Carbon Dioxide 30 (22-30) mmol/L BUN 8 L (9-20) mg/dL Creatinine 0.48 L (0.66-1.25) mg/dL Glucose 73 L (74-99) mg/dL Calcium 8.0 L (8.4-10.2) mg/dL
--- NOTE | 2023-05-23 12:15 | P.PN ---
Subjective Progress Note Date: 05/23/23 Patient is doing well. He is tolerating liquids. AXR ordered to check for future placement of PEG tube. Chest CT reviewed. Will place PEG tube tomorrow. Time to be given per ENDO team. Questions answered. Objective - Vital Signs Vital signs: Vital Signs Temp 99.1 F 05/23/23 08:00 Pulse 106 H 05/23/23 08:00 Resp 20 05/23/23 08:00 BP 105/65 05/23/23 08:00 Pulse Ox 96 05/23/23 11:44 FiO2 35 05/23/23 11:44 Intake & Output 05/22/23 05/23/23 05/23/23 18:59 06:59 18:59 Intake Total 200 100 Output Total 0 Balance 200 100 Intake: IV 200 100 Sodium Chloride 0.9% 1, 200 100 000 ml @ 100 mls/hr IV . Q10H [facility] Rx#:[id number] Output: Urine 0 Other: Voiding Method Urinal Urinal Urinal # Voids 2 4 - Labs CBC & Chem 7: 05/23/23 07:43 05/23/23 07:43 Labs: Abnormal Lab Results - Last 24 Hours (Table) 05/23/23 05/23/23 Range/Units 07:43 07:43 WBC 12.7 H (3.8-10.6) k/uL MCV 102.2 H (80.0-100.0) fL Neutrophils # 10.5 H (1.3-7.7) k/uL Lymphocytes # 0.9 L (1.0-4.8) k/uL Sodium 135 L (137-145) mmol/L Carbon Dioxide 33 H (22-30) mmol/L BUN 6 L (9-20) mg/dL Creatinine 0.43 L (0.66-1.25) mg/dL Glucose 119 H (74-99) mg/dL Calcium 8.3 L (8.4-10.2) mg/dL Microbiology - Last 24 Hours (Table) 05/20/23 11:36 Gram Stain - Final Sputum Sputum Culture - Final
[2023-05-23] MEDS ORDERED: DEXAMETHASONE SOD PHOSPHATE 10 MG/ML 1 ML VIAL IVP STA (15:07)
[2023-05-23] MEDS ORDERED: DOCUSATE ORAL SOLN 100 MG/10 ML CUP PO PRN (15:21)
[2023-05-23] MEDS: NICOTINE 21MG/24HR PATCH TRANSDERM SCH (15:36)
[2023-05-24] MEDS ORDERED: KETOROLAC 15 MG/ML 1 ML VIAL IVP STA ×2 (03:03→08:56)
--- NOTE | 2023-05-24 03:07 | PN ---
PROGRESS NOTE DATE OF SERVICE: 05/22/2023 SUBJECTIVE: Vital signs are stable. The patient is doing well status post tracheotomy under general anesthesia. He has currently been taken off the ventilator and is currently breathing on his own using a trach collar with supplemental oxygen. I was able to obtain further information from the patient. He states that following his initial diagnosis approximately 2 months ago at [facility], it was decided that he would undergo multiple treatments, approximately 8 weeks of radiation and also inductive chemotherapy. At that time because of the size of the patient's tumor, there was a discussion of the patient possibly needing to have a tracheotomy performed. It is quite common that after the initiation of radiation to the head and neck tumors that there may be subsequent soft-tissue swelling due to inflammation, which may cause airway obstruction. The patient was reluctant at that time and it was agreed with his doctors that they would wait to see if he develops any problems. The patient states that after the initial treatment, he did not have any really significant problems. However, later on, he began having intermittent difficulty breathing and this required that he sleeps sitting up. I am not sure whether or not he informed the radiation oncologist or the ear, nose, and throat physician caring for him of his difficulties. After I explained to him the purpose of the tracheotomy was to provide him with safety valve in the event that he developed a significant swelling from the radiation, he completely understood. At the time of his emergency intubation in the emergency room, most of his airway obstruction was due to inflammation and edema of the soft tissues as well as the large bulky tumor. His intubation was somewhat difficult. I again reiterated to him that the purpose of his tracheotomy was to provide emergency relief to his airway. I also emphasized to him that this is a temporary measure and that at some point, it will be removed. I advised that it most likely will not be removed until he completes his radiation and after his upper airway has been evaluated and found to be patent. I explained to him that the removal process is actually quite simple and is done on an outpatient basis. I spent approximately 45 minutes with this patient, answering all of his questions, as well as answering the questions of his son who was present in the room. He states that other than a slight sore throat, he is not having any significant difficulty with the tracheotomy tube itself. He stated that he was quite hungry and I advised nursing staff that they could start giving him full liquids as tolerated. I do not expect him to exhibit any issues with respect to aspiration and he notes that he does not have any significant difficulty swallowing other than the fact that it hurts to swallow. OBJECTIVE: HEENT: The patient is normocephalic. Tympanic membranes are normal. Examination of the tracheostomy site reveals that it is intact. It is essentially dry. The patient still has his original tracheostomy sponge which is located under the tracheostomy tube. The tracheostomy tube is still sewn to the skin and will remain so for 72 hours or until 05/25/2023, at which point I will snip the sutures. Once the sutures have been snipped then it will be easy for the nursing staff and respiratory therapy to periodically change the tracheostomy sponges. Remainder of the head and neck exam is unremarkable. ASSESSMENT: Status post urgent tracheotomy. PLAN: As I stated above, I will snip the sutures that are holding the tracheostomy tube in place on Wednesday. This will allow plenty of time for a track to form. My understanding is that the patient will undergo a swallowing evaluation on Wednesday and also will be seen by Dr. Vargas from the General Surgery service concerning the insertion of a PEG tube. I would continue to see the patient on a daily basis. MMODL / IJN: [id number] / MTDD
--- NOTE | 2023-05-24 03:13 | PN ---
PROGRESS NOTE DATE OF SERVICE: 05/23/2023 SUBJECTIVE: Vital signs stable. The patient is tolerating the trach collar and is breathing on room air with supplemental O2. He has apparently been able to swallow his liquid diet without any difficulty or issues with respect to aspiration. His pain in the throat is being controlled by 400 mg of ibuprofen on a p.r.n. basis. Respiratory is suctioning the patient and caring for his tracheostomy tube on a regular basis. The patient says that he has been watching the respiratory therapist, cleaning the tracheostomy cannula and feels that he will be able to do this himself at home. OBJECTIVE: HEENT: The patient is normocephalic. Examination of trach site reveals there is no evidence of any active bleeding or infection. Again, the patient still has the original tracheostomy dressing underneath the tracheostomy tube because the tube is sewn to the skin. This will be removed once the sutures had been cut by me on 05/25/2023. Remainder of the exam is unremarkable. ASSESSMENT: Status post urgent tracheotomy. PLAN: We will continue with present orders. I am also going to have the nurses give the patient a single dose of 10 mg of dexamethasone and this should relieve some of the soft tissue swelling from the radiation also from the trauma from his intubation. In addition, I am going to start the patient on Ancef prophylactically, 2 g IV q.8 because the patient was a heavy smoker anywhere from half to a pack or more on a daily basis and I suspect he has some issues with respect to COPD/emphysema. The patient is scheduled for swallowing studies on Wednesday and will be seen by Dr. Vargas sometime during the week for peg tube placement. I advised the nursing staff that with respect to resuming of his radiation, it can probably resume a week after his discharge from the hospital. I again reassured the patient that his tracheostomy tube is temporary and that once his radiation is complete and we were able to evaluate the status of his upper airway, if it is satisfactory, then the tube will be removed. I emphasized also to the patient the importance of trying to maintain his weight and nutrition because that has a definite direct effect on the tumors response to radiation treatment and chemotherapy. I will continue to see the patient on a daily basis. I spent about 45 minutes with this patient again today answering his questions and also answering both his son's questions and all the questions of the nursing staff. HELENEL / EMMAN: [id number] / MTDD
[2023-05-24] MEDS: PANTOPRAZOLE 40 MG/10 ML VIAL IVP SCH (08:00)
[2023-05-24] MEDS ORDERED: DOCUSATE ORAL SOLN 100 MG/10 ML CUP PO SCH (09:00)
--- NOTE | 2023-05-24 09:19 | P.PN ---
Subjective Progress Note Date: 05/24/23 Pt is c/o dark urine and thirst, wondering if he needs IVF. Plan for PEG tube today. Also will undergo ST consult today. 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 Patient was in [facility] about to receive his first radiation treatment to his neck for laryngeal carcinoma, but prior to receiving treatment he had an episode of hypoxia, obtundation. CODE BLUE was called at the time, and patient was noted to be hypoxic to 50-60% saturation, was placed on nonrebreather and improved to mid 90s. Subsequently he was transferred to the emergency room for further evaluation. During his ER course, patient became more obtunded, requiring emergent intubation. Anesthesia was called for emergent intubation with possible need for surgical airway. ENT came to bedside in case tracheostomy was required. Anesthesia was able to get the patient intubated with great difficulty, during the procedure was notable that he had friable mucosa with easy bleeding of the mass. In the emergency room, patient was afebrile, 151/84, heart rate 115, 98% on 15 L of nonrebreather. ECG demonstrated leukocytosis to 11.5, MCV of 101.5. Basic metabolic panel showed sodium of 135, chloride 91, CO2 40, BUN 22, creatinine 1.57. Liver function tests are unremarkable. Troponin was less than 0.012. Coags are unremarkable. Initial pH on VBG was 7.08 with a pCO2 of 134. Following intubation, his ABG demonstrated pCO2 of 71, pH of 7.31. Chest x-ray showed normal-sized heart, clear parenchyma bilaterally, post intubation chest x-ray showed breathing tube in good position. EKG demonstrated sinus tachycardia with peaked P waves consistent with right atrial enlargement. Case was discussed with the emergency room provider at bedside, anesthesia, ENT physician - Patient was ultimately transferred to the intensive care unit for further management. 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 Q10H [facility] Rx#:[id number] Intake, IV Titration 50 50 Amount ceFAZolin 2 gm In Sodium 50 50 Chloride 0.9% 50 ml @ 100 mls/hr IVPB Q8HR [facility] Rx# :[id number] Other: Voiding Method Urinal Urinal # Voids 1 2 - Labs CBC & Chem 7: 05/23/23 07:43 05/23/23 07:43
[2023-05-24] MEDS: NICOTINE 21MG/24HR PATCH TRANSDERM SCH (09:35)
--- NOTE | 2023-05-24 09:40 | P.PN ---
Subjective Progress Note Date: 05/24/23 57-year-old male with history of laryngeal carcinoma, who apparently was over at the cancer center, for his first radiation treatment. He apparently was laying flat, became short of breath, and had a change in mental status, and a CODE BLUE was called. The patient never lost pulses, and he never stopped breathing. The rapid response team responded to the CODE BLUE and the patient was sent to the ER to be evaluated. In the emergency room, the patient apparently was having significant respiratory difficulty, and he was stridorous, and for that reason, he was intubated, by anesthesia, using fiberoptics. The patient is currently in the emergency department. The plan is for tracheostomy, possibly tomorrow. Urine nose throat doctor has been consulted. Currently, the patient is on the ventilator, with settings of assist control, rate 20, tidal volume 450, FiO2 50%, and PEEP of 5. He has propofol running at 50 mcg/kg/m, Versed 5 mg an hour, and saline at 100 mL an hour. In addition to laryngeal carcinoma, he has a history of COPD, syncope, Graves' disease, diverticular disease, as a current every day smoker. He has had no treatment for his cancer as yet. Today was the first radiation treatment. White count 11.5, hemoglobin 16.9, hematocrit 54, and platelet count 233,000. Blood gases show pO2 397, pCO2 71, and a pH is 7.31. Sodium 135, potassium 4.4, chlorides 91, CO2 40, BUN 22, and creatinine 0.57. Based on the bicarbonate concentration of 40, the patient's baseline Pita 2 is right around 68+ or -2 mmHg. Chest x-ray shows borderline heart size, and interstitial prominence. Progress note dated 05/21/2023. 57-year-old male that we saw yesterday in the emergency department. The patient has a recent diagnosis of laryngeal carcinoma, and was at the cancer center yest erday, his first radiation treatment, at which time, he had mental status changes, and respiratory difficulty, ended up in the emergency department, and was intubated. He is seen today in the intensive care unit, room 263. He remains on mechanical ventilator. His ventilator settings include the volume assist control, rate 20, tidal volume 450, FiO2 50%, and PEEP of 5. Blood gases are pO2 117, pCO2 of 43, and pH is 7.45. The FiO2 was reduced from 50%, down to 40%. The patient is currently on saline at 100 mL an hour, and propofol at 50 mcg/kg/m. Versed has been weaned off. The patient is to be seen by ear nose and throat physician, for possible tracheostomy. White count 12.2, hemoglobin 13.7, hematocrit 44.4, with a normal platelet count. Sodium 137, potassium 4.4, chlorides 105, CO2 24, anion gap normal, BUN 15, and creatinine 0.47. Chest x- ray shows no acute cardiopulmonary disease. Computed tomography scan of the neck shows an ill-defined right laryngeal mass. Progress note dated 05/22/2023. 57-year-old male, seen a couple days ago in the emergency department. The ruben zavala was recently discovered to have laryngeal carcinoma, and was over the [facility], to begin treatment, with radiation. Because of worsening respiratory status, he was transferred over to the emergency department, where he was intubated, because of a compromised airway, and stridor. He was actually intubated by anesthesia I believe. Anyway, the patient underwent a tracheostomy, yesterday, and is currently in the intensive care unit. He's postop day #1, status post tracheostomy. He is currently on a 40% trach collar. He is getting saline at 100 mL an hour. He is in no distress. White count 10.5, hemoglobin 13.4, hematocrit 42.8, with a normal platelet count. Sodium 137, potassium 4, chlorides 103, CO2 30, anion gap 4, BUN 8, and creatinine 0.48. Chest x-ray show some mild basilar atelectasis, and a midline tracheostomy tube. Progress note dated 05/23/2023. 57-year-old male, seen initially in the emergency department, with a diagnosis of respiratory failure secondary to newly diagnosed laryngeal cancer. The patient is status post tracheostomy, performed by Dr. Sams. The patient is seen today in room 263. Continues on trach collar 40%. He is getting saline at 100 mL an hour. The patient could be considered for possible transfer, out of the unit. The patient has not yet had any treatment for his laryngeal cancer. The other day when he was over at [facility], he was to have his initial treatment. Currently labs include a white count 12.7, hemoglobin 13.9, hematocrit 0.3, and a normal platelet count. Sodium 135, potassium 4.2, chlor ides 100, CO2 33, BUN 6, and creatinine 0.43. Chest x-ray from yesterday, she was a midline tracheostomy tube, and some bibasilar infiltrates/atelectasis. On today's evaluation of 05/24/2023, the patient remains on a 40% trach collar. The patient is a #[address], fenestrated. The patient remains nothing by mouth and the patient is going to have effective inserted today. The tracheostomy tube was inserted by ENT. BUN is at 6 with a creatinine of 0.4. The white cycles of 4.7 with a hemoglobin 15.9. The patient is currently on IV cefazolin. No signs of any significant respiratory distress. He is on a 40% trach collar. He respiratory secretions are copious, loose, liquidy and brown in color. Noted the patient has laryngeal cancer and he was supposed to start radiation therapy to his neck and he developed significant respiratory compromise requiring intubation mechanical ventilation. Hemodynamically stable at this point in time. No other significant events overnight. Is a heavy smoker. Okay with Objective - Vital Signs Vital signs: Vital Signs Temp 98.3 F 05/24/23 01:45 Pulse 79 05/24/23 01:45 Resp 20 05/24/23 01:45 BP 102/67 05/24/23 01:45 Pulse Ox 93 L 05/24/23 01:45 FiO2 35 05/24/23 04:49 Intake & Output 05/23/23 05/24/23 05/24/23 18:59 06:59 18:59 Intake Total 50 170 Balance 50 170 Weight 66.497 kg 67.8 kg Intake: IV 120 Sodium Chloride 0.9% 1, 120 000 ml @ 100 mls/hr IV . Q10H [facility] Rx#:[id number] Intake, IV Titration 50 50 Amount ceFAZolin 2 gm In Sodium 50 50 Chloride 0.9% 50 ml @ 100 mls/hr IVPB Q8HR [facility] Rx# :[id number] Other: Voiding Method Urinal Urinal # Voids 1 2 - Exam No acute distress, laying in bed, breathing normally, midline tracheostomy tube in place. The patient has a tracheostomy tube Shiley #8, fenestrated. The patient is currently on 35% trach collar Head exam was generally normal. There was no scleral icterus or corneal arcus. Mucous membranes were moist. HEENT examination is grossly unremarkable. Neck supple. Full range of motion. No adenopathy thyromegaly or neck vein distention. The patient has a midline tracheostomy. A trach collar is noted over the tracheostomy tube. Cardiovascular examination reveals regular rhythm rate. S1-S2 normal. No S3 or S4. No discernible murmur noted. Lungs reveal clear breath sounds. Breath sounds are equal bilaterally. No adventitious lung sounds including wheezes rhonchi or crackles. Abdomen soft bowel sounds are heard. No masses or tenderness. Extremities are intact. No cyanosis clubbing or edema. Skin is without rash or lesion. Neurologic examination cannot be assessed. - Labs CBC & Chem 7: 05/23/23 07:43 05/23/23 07:43 Assessment and Plan Plan: Acute hypoxic respiratory failure secondary to laryngeal cancer and anatomic o bstruction of the airway. The patient is S/P intubation and mechanical ventilation, 05/20/2020, secondary to respiratory compromise and stridor, in a patient with a known history of laryngeal carcinoma. The patient was given a tracheostomy tube the patient has a #8 [address] tracheostomy tube in place Postop day #4, status post tracheostomy. The patient may have underlying bronchitis and the patient is bringing up copious amounts vessel secretions. Rule out underlying tracheal bronchitis. COPD History of syncope. Graves' disease. Diverticular disease. Ongoing tobacco use with nicotine addiction. History of marijuana use. Plan: Obtain sputum Gram stain and cultures Keep the patient on a 40% trach collar Provide albuterol nebulizer treatments 3 times a day Frequent suctioning and pulmonary toileting Continue IV cefazolin for now PEG tube insertion today We'll continue to follow
[2023-05-24] MEDS ORDERED: PROPOFOL 10 MG/ML 20 ML VIAL IV ONE (10:55)
[2023-05-24] MEDS ORDERED: IV FLUID CONTINUATION 400 ML IV ONE (11:39)
--- NOTE | 2023-05-24 11:51 | P.PCN ---
Date of Procedure: 05/24/23 Description of Procedure: PREOPERATIVE DIAGNOSIS: Laryngeal cancer Status post tracheostomy Prolonged nothing by mouth status Moderate protein malnutrition secondary to inadequate protein intake. Hypoalbuminemia. Tobacco abuse disorder POSTOPERATIVE DIAGNOSIS: Laryngeal cancer Status post tracheostomy Prolonged nothing by mouth status Moderate protein malnutrition secondary to inadequate protein intake. Hypoalbuminemia. Tobacco abuse disorder Diaphragmatic hiatal hernia, midline, 3 cm Retrognathia OPERATION: Esophagogastroduodenoscopy with percutaneous endoscopic gastrostomy tube placement 20-Nicaraguan, Avanos Pull technique SURGEON: Shannon Mercedes MD ANESTHESIA: MAC. INDICATIONS: The patient is a 57-year-old male who presents with laryngeal cancer, status post emergency tracheostomy, prolonged nothing by mouth status and protein malnutrition. Benefits and risks of the procedure were described. Informed consent was obtained. DESCRIPTION: The patient was laid in supine position. After adequate IV sedation a bite block was placed. There are left was used due to retrognathia. An Olympus gastroscope was passed along the posterior oropharynx down the distal esophagus. Moderate secretions were suctioned along the posterior oropharynx. The stomach was entered. The antrum appeared unremarkable. A point along the anterior surface, greater curvature of the stomach was selected. The scope was passed to the duodenum which was unremarkable. The skin was cleansed with ChloraPrep and an incision was made after illuminating the proposed PEG tube site. Using a 16-Nicaraguan needle, a guidewire was fed into the stomach under endoscopic visualization. A snare was used to pull the guidewireout of the mouth. Over the guidewire, the PEG tube was pulled over the guidewire until it exited through the skin incision. The guidewire was removed. The round fitting clasp was placed over the gastrostomy tube and fixed at 2 cm at the skin. A feeding adapter was placed at the cut end of the feeding tube. An endoscopic captured image of the gastrostomy tube within the stomach was made. The patient tolerated the procedure well. Findings: 1. Hill grade 2 lower esophageal valve. 2. Diaphragmatic hiatal hernia, 3 cm. 3. No acute gastric ulcers. 4. No acute duodenitis. 5. Squamocolumnar junction 41 cm 6. Diaphragmatic hiatus 44 cm from incisors Disposition: Start tube feeds within 24 hours with goal determined with binder roller.
[2023-05-24] MEDS: CHLORHEXIDINE GLUCONATE 15 ML CUP MUCOUS MEM SCH (12:08)
[2023-05-24] MEDS: KETOROLAC 15 MG/ML 1 ML VIAL IVP PRN ×2 (14:27→21:15)
[2023-05-24 15:53] LABS: Glucose,Whole Blood 83 mg/dL (70-110)
[2023-05-25] MEDS: KETOROLAC 15 MG/ML 1 ML VIAL IVP PRN ×3 (05:10→16:32)
--- NOTE | 2023-05-25 08:53 | P.PN ---
Subjective Progress Note Date: 05/25/23 57-year-old man with a history of head and neck cancer with obstructing laryngeal mass present for respiratory failure, obtundation. Patient was in [facility] about to receive his first radiation treatment to his neck for laryngeal carcinoma, but prior to receiving treatment he had an episode of hypoxia, obtundation. CODE BLUE was called at the time, and patient was noted to be hypoxic to 50-60% saturation, was placed on nonrebreather and improved to mid 90s. Subsequently he was transferred to the emergency room for further evaluation. During his ER course, patient became more obtunded, requiring emergent intubation. Anesthesia was called for emergent intubation with possible need for surgical airway. ENT came to bedside in case tracheostomy was required. Anesthesia was able to get the patient intubated with great difficulty, during the procedure was notable that he had friable mucosa with easy bleeding of the mass. In the emergency room, patient was afebrile, 151/84, heart rate 115, 98% on 15 L of nonrebreather. ECG demonstrated leukocytosis to 11.5, MCV of 101.5. Basic metabolic panel showed sodium of 135, chloride 91, CO2 40, BUN 22, creatinine 1.57. Liver function tests are unremarkable. Troponin was less than 0.012. Coags are unremarkable. Initial pH on VBG was 7.08 with a pCO2 of 134. Following intubation, his ABG demonstrated pCO2 of 71, pH of 7.31. Chest x-ray showed normal-sized heart, clear parenchyma bilaterally, post intubation chest x-ray showed breathing tube in good position. EKG demonstrated sinus tachycardia with peaked P waves consistent with right atrial enlargement. Case was discussed with the emergency room provider at bedside, anesthesia, ENT physician - Patient was ultimately transferred to the intensive care unit for further management. Rad-Onc recommended holding any further radiation treatments. Underwent tracheostomy on 05/21/2023. Underwent PEG 05/24/2023. Plan to retun home with [facility]. 05/25 Patient was seen and examined. He reports well controlled pain. Plans to initiate tube feeds. BP 122/67 P 83 RR 16 98% on trachcollar FiO2 35%. CBC shows MCV of 100.2. BMP shows bicab 34, Cr 0.52. General: non toxic, no distress, appears at stated age, cachectic Derm: warm, dry, tracheostomy with blood soaked dressing Head: atraumatic, normocephalic, symmetric Eyes: EOMI, no lid lag, anicteric sclera Mouth: no lip lesion, mucus membranes moist Cardiovascular: S1S2 reg, no murmur Lungs: CTA bilateral, no rhonchi, no rales , no accessory muscle use Abdominal: soft, nontender to palpation, PEG Ext: no gross muscle atrophy, no edema, no contractures Psych: Alert Acute hypercarbic respiratory failure Laryngeal mass causing upper airway obstruction Head and neck cancer Based on my assessment of this patient, this patient meets a moderate complexity level of care. Patient has a laryngeal CA with upper airway obstruction with severe exacerbation or progression of disease which poses a threat to life or bodily function. Status post trach 05/21. Status post PEG 05/24. Acute hypercarbic respiratory failure: Status post trach 05/21. Trach collar FiO2 35%. Aggressive suctioning and pulm toileting. Empirically on Kefzol 2g IV TID. Laryngeal mass causing upper airway obstruction: Status post PEG 05/24. ST consult for TF recommendations. Head and neck cancer: Oncology and Rad-Onc follow up. Protonix 40 mg IV QD for GI prophylaxis. SCDs for DVT prophylaxis. FULL CODE. Dispo: Plans for discharge home tomorrow. Case management on board for supplies. I have reviewed the following legal consultant notes: Pulmonology and Surgery note. I have reviewed the results of the following tests: CBC, BMP. I have ordered the following tests: I have discussed the care of this patient with the following independent historian: I have independently interpreted the following test below: I have discussed the management of this patient with the following physician: Objective - Vital Signs Vital signs: Vital Signs Temp 98.5 F 05/25/23 02:00 Pulse 83 05/25/23 02:00 Resp 16 05/25/23 02:00 BP 122/67 05/25/23 02:00 Pulse Ox 98 05/25/23 02:00 FiO2 35 05/25/23 02:00 Intake & Output 05/24/23 05/25/23 05/25/23 18:59 06:59 18:59 Intake Total 350 Output Total 200 150 Balance 150 -150 Weight 67.8 kg 67.6 kg Intake: IV 300 Intake, IV Titration 50 Amount ceFAZolin 2 gm In Sodium 50 Chloride 0.9% 50 ml @ 100 mls/hr IVPB Q8HR [facility] Rx# :[id number] Output: Urine 200 150 Other: Voiding Method Urinal - Labs CBC & Chem 7: 05/25/23 10:45 05/25/23 10:45
--- NOTE | 2023-05-25 09:00 | P.PN ---
Subjective Progress Note Date: 05/25/23 57-year-old male with history of laryngeal carcinoma, who apparently was over at the cancer center, for his first radiation treatment. He apparently was laying flat, became short of breath, and had a change in mental status, and a CODE BLUE was called. The patient never lost pulses, and he never stopped breathing. The rapid response team responded to the CODE BLUE and the patient was sent to the ER to be evaluated. In the emergency room, the patient apparently was having significant respiratory difficulty, and he was stridorous, and for that reason, he was intubated, by anesthesia, using fiberoptics. The patient is currently in the emergency department. The plan is for tracheostomy, possibly tomorrow. Urine nose throat doctor has been consulted. Currently, the patient is on the ventilator, with settings of assist control, rate 20, tidal volume 450, FiO2 50%, and PEEP of 5. He has propofol running at 50 mcg/kg/m, Versed 5 mg an hour, and saline at 100 mL an hour. In addition to laryngeal carcinoma, he has a history of COPD, syncope, Graves' disease, diverticular disease, as a current every day smoker. He has had no treatment for his cancer as yet. Today was the first radiation treatment. White count 11.5, hemoglobin 16.9, hematocrit 54, and platelet count 233,000. Blood gases show pO2 397, pCO2 71, and a pH is 7.31. Sodium 135, potassium 4.4, chlorides 91, CO2 40, BUN 22, and creatinine 0.57. Based on the bicarbonate concentration of 40, the patient's baseline Pita 2 is right around 68+ or -2 mmHg. Chest x-ray shows borderline heart size, and interstitial prominence. Progress note dated 05/21/2023. 57-year-old male that we saw yesterday in the emergency department. The patient has a recent diagnosis of laryngeal carcinoma, and was at the cancer center yest erday, his first radiation treatment, at which time, he had mental status changes, and respiratory difficulty, ended up in the emergency department, and was intubated. He is seen today in the intensive care unit, room 263. He remains on mechanical ventilator. His ventilator settings include the volume assist control, rate 20, tidal volume 450, FiO2 50%, and PEEP of 5. Blood gases are pO2 117, pCO2 of 43, and pH is 7.45. The FiO2 was reduced from 50%, down to 40%. The patient is currently on saline at 100 mL an hour, and propofol at 50 mcg/kg/m. Versed has been weaned off. The patient is to be seen by ear nose and throat physician, for possible tracheostomy. White count 12.2, hemoglobin 13.7, hematocrit 44.4, with a normal platelet count. Sodium 137, potassium 4.4, chlorides 105, CO2 24, anion gap normal, BUN 15, and creatinine 0.47. Chest x- ray shows no acute cardiopulmonary disease. Computed tomography scan of the neck shows an ill-defined right laryngeal mass. Progress note dated 05/22/2023. 57-year-old male, seen a couple days ago in the emergency department. The ruben zavala was recently discovered to have laryngeal carcinoma, and was over the [facility], to begin treatment, with radiation. Because of worsening respiratory status, he was transferred over to the emergency department, where he was intubated, because of a compromised airway, and stridor. He was actually intubated by anesthesia I believe. Anyway, the patient underwent a tracheostomy, yesterday, and is currently in the intensive care unit. He's postop day #1, status post tracheostomy. He is currently on a 40% trach collar. He is getting saline at 100 mL an hour. He is in no distress. White count 10.5, hemoglobin 13.4, hematocrit 42.8, with a normal platelet count. Sodium 137, potassium 4, chlorides 103, CO2 30, anion gap 4, BUN 8, and creatinine 0.48. Chest x-ray show some mild basilar atelectasis, and a midline tracheostomy tube. Progress note dated 05/23/2023. 57-year-old male, seen initially in the emergency department, with a diagnosis of respiratory failure secondary to newly diagnosed laryngeal cancer. The patient is status post tracheostomy, performed by Dr. Sams. The patient is seen today in room 263. Continues on trach collar 40%. He is getting saline at 100 mL an hour. The patient could be considered for possible transfer, out of the unit. The patient has not yet had any treatment for his laryngeal cancer. The other day when he was over at [facility], he was to have his initial treatment. Currently labs include a white count 12.7, hemoglobin 13.9, hematocrit 0.3, and a normal platelet count. Sodium 135, potassium 4.2, chlor ides 100, CO2 33, BUN 6, and creatinine 0.43. Chest x-ray from yesterday, she was a midline tracheostomy tube, and some bibasilar infiltrates/atelectasis. On today's evaluation of 05/24/2023, the patient remains on a 40% trach collar. The patient is a #[address] tube [address], fenestrated. The patient remains nothing by mouth and the patient is going to have effective inserted today. The tracheostomy tube was inserted by ENT. BUN is at 6 with a creatinine of 0.4. The white cycles of 4.7 with a hemoglobin 15.9. The patient is currently on IV cefazolin. No signs of any significant respiratory distress. He is on a 40% trach collar. He respiratory secretions are copious, loose, liquidy and brown in color. Noted the patient has laryngeal cancer and he was supposed to start radiation therapy to his neck and he developed significant respiratory compromise requiring intubation mechanical ventilation. Hemodynamically stable at this point in time. No other significant events overnight. Is a heavy smoker. On today's evaluation of 05/25/2023, the patient is calm and comfortable and the patient underwent a PEG tube insertion. The patient has a number AHI tracheost cezar tube in place. Rest or secretions have subsided significantly since yesterday. The patient remains on IV cefazolin. Enteral feeding will be started today. He remains on a 35% trach collar. Otherwise, no other significant complaints. His oxygenation is stable. Hemoglobin is at 13.9 and this was from yesterday with a BUN of 6 and a creatinine of 0.4. No new labs are available from today. He is hemodynamically stable. No other significant events overnight. He is very hard of hearing. No issues with pain. Objective - Vital Signs Vital signs: Vital Signs Temp 98.5 F 05/25/23 02:00 Pulse 83 05/25/23 02:00 Resp 16 05/25/23 02:00 BP 122/67 05/25/23 02:00 Pulse Ox 98 05/25/23 02:00 FiO2 35 05/25/23 02:00 Intake & Output 05/24/23 05/25/23 05/25/23 18:59 06:59 18:59 Intake Total 350 Output Total 200 150 Balance 150 -150 Weight 67.8 kg 67.6 kg Intake: IV 300 Intake, IV Titration 50 Amount ceFAZolin 2 gm In Sodium 50 Chloride 0.9% 50 ml @ 100 mls/hr IVPB Q8HR [facility] Rx# :[id number] Output: Urine 200 150 Other: Voiding Method Urinal - Exam No acute distress, laying in bed, breathing normally, midline tracheostomy tube in place. The patient has a tracheostomy tube Shiley #8, fenestrated. The patient is currently on 35% trach collar Head exam was generally normal. There was no scleral icterus or corneal arcus. Mucous membranes were moist. HEENT examination is grossly unremarkable. Neck supple. Full range of motion. No adenopathy thyromegaly or neck vein distention. The patient has a midline tracheostomy. A trach collar is noted over the tracheostomy tube. Cardiovascular examination reveals regular rhythm rate. S1-S2 normal. No S3 or S4. No discernible murmur noted. Lungs reveal clear breath sounds. Breath sounds are equal bilaterally. No adventitious lung sounds including wheezes rhonchi or crackles. Abdomen soft bowel sounds are heard. No masses or tenderness. The patient's has a PEG tube in place Extremities are intact. No cyanosis clubbing or edema. Skin is without rash or lesion. Neurologic examination cannot be assessed. - Labs CBC & Chem 7: 05/23/23 07:43 05/23/23 07:43 Assessment and Plan Plan: Acute hypoxic respiratory failure secondary to laryngeal cancer and anatomic obstruction of the airway. The patient is S/P intubation and mechanical ventilation, 05/20/2020, secondary to respiratory compromise and stridor, in a patient with a known history of laryngeal carcinoma. The patient was given a tracheostomy tube the patient has a #8 Shiley tracheostomy tube in place Postop day #6, status post tracheostomy. The patient may have underlying bronchitis and the patient is bringing up copious amounts vessel secretions. Rule out underlying tracheal bronchitis. post op PEG tube insertion COPD History of syncope. Graves' disease. Diverticular disease. Ongoing tobacco use with nicotine addiction. History of marijuana use. Plan: Obtain sputum Gram stain and cultures secretions have subsided Keep the patient on a 35 % trach collar Provide albuterol nebulizer treatments 3 times a day Frequent suctioning and pulmonary toileting Continue IV cefazolin for now PEG tube insertion was done yesterday and the patient will be started on enteral feeding today. That has been consulted We'll continue to follow, should be able to the dye seen today
[2023-05-25] MEDS: PANTOPRAZOLE 40 MG/10 ML VIAL IVP SCH (09:14)
[2023-05-25] MEDS: NICOTINE 21MG/24HR PATCH TRANSDERM SCH (09:41)
--- NOTE | 2023-05-25 10:39 | P.PN ---
Subjective Progress Note Date: 05/25/23 CHIEF COMPLAINT: Laryngeal cancer HISTORY OF PRESENT ILLNESS: Patient postop day #1 status post PEG tube placement. Patient reports minimal pain at the PEG tube site. Denies any nausea or vomiting. Afebrile. On Trach collar 35%. PHYSICAL EXAM: VITAL SIGNS: Reviewed GENERAL: Well-developed in no acute distress. HEENT: No sclera icterus. Extraocular movements grossly intact. Moist buccal mucosa. Head is atraumatic, normocephalic. Hears conversational speech. No nasal drainage. NECK: Supple without lymphadenopathy. CHEST: Non-labored respirations and equal bilateral excursions. CARDIOVASCULAR: Palpable 2+ radial pulses. ABDOMEN: Soft. Nondistended. PEG tube site clean dry and intact MUSCULOSKELETAL: No clubbing or cyanosis. NEUROLOGIC: No focal or lateralizing signs. Cranial nerves II through XII grossly intact. PSYCH: Appropriate affect. Alert and oriented to person, place and time. SKIN: Well perfused. Good skin turgor. ASSESSMENT: Laryngeal cancer Status post tracheostomy Prolonged nothing by mouth status Moderate protein malnutrition secondary to inadequate protein intake. Hypoalbuminemia. Tobacco abuse disorder Diaphragmatic hiatal hernia, midline, 3 cm Retrognathia PLAN: -Okay to start tube feedings -Tube feed goal per dietitian -Patient can be discharged from surgical standpoint when medically cleared -Okay to proceed with modified barium swallow from surgical standpoint Physician Wad Blanking Press Adjuster note has been reviewed by physician. Signing provider agrees with the documented findings, assessment, and plan of care. Objective - Vital Signs Vital signs: Vital Signs Temp 98.6 F 05/25/23 08:00 Pulse 74 05/25/23 08:00 Resp 18 05/25/23 08:00 BP 127/73 05/25/23 08:00 Pulse Ox 96 05/25/23 08:00 FiO2 35 05/25/23 08:00 Intake & Output 05/24/23 05/25/23 05/25/23 18:59 06:59 18:59 Intake Total 350 50 Output Total 200 150 Balance 150 -150 50 Weight 67.8 kg 67.6 kg Intake: IV 300 Intake, IV Titration 50 50 Amount ceFAZolin 2 gm In Sodium 50 50 Chloride 0.9% 50 ml @ 100 mls/hr IVPB Q8HR [facility] Rx# :[id number] Output: Urine 200 150 Other: Voiding Method Urinal # Voids 1 - Labs CBC & Chem 7: 05/23/23 07:43 05/23/23 07:43
[2023-05-25 10:55] LABS: HCT 45.4 % (39.0-53.0); HGB 14.5 gm/dL (13.0-17.5); MCH 31.9 pg (25.0-35.0); MCHC 31.9 g/dL (31.0-37.0); MCV 100.2 fL (80.0-100.0); Mean Platelet Volume 8.5; Platelet Count 199 k/uL (150-450); RBC 4.53 m/uL (4.30-5.90); RDW 12.5 % (11.5-15.5); WBC 6.9 k/uL (3.8-10.6)
[2023-05-25 11:18] LABS: African American GFR (CKD) >90 (>60 ml/min/1.73 sqM); Anion Gap 5 mmol/L; Blood Urea Nitrogen 14 mg/dL (9-20); Calcium 8.7 mg/dL (8.4-10.2); Carbon Dioxide 34 mmol/L (22-30); Chloride 99 mmol/L (98-107); Glucose 98 mg/dL (74-99); Non-African American GFR(CKD) >90 (>60 ml/min/1.73 sqM); Potassium 3.9 mmol/L (3.5-5.1); Sodium 138 mmol/L (137-145)
--- NOTE | 2023-05-25 15:20 | FL ---
EXAMINATION TYPE: FL barium swallow w video DATE OF EXAM: 05/25/2023 CLINICAL HISTORY: 57-year-old male recent trachea, large vocal cord mass, PEG tube placed, Dysphagia. TECHNIQUE: Deglutition study is performed utilizing thin liquid barium, honey and nectar thick liqui d barium. Total fluoroscopy time: 57 seconds. Total images: None. Real-time fluoroscopy support was provided to speech pathology. DOSE AREA PRODUCT (DAP) UGY*M,MGY*CM: 63.84 COMPARISON: None. FINDINGS: Tracheostomy cannula is noted. There is silent aspiration with thin liquid, nectar liquid, and honey thickened liquid consistencies. Moderate pharyngeal residuals are also noted and there is also aspira tion of residual is demonstrated. The exam is terminated at this point. IMPRESSION: Silent aspiration with all liquid consistencies. Moderate pharyngeal residuals. Please refer to [facility] therapist notes for further details if necessary.
[2023-05-25] MEDS: ACETAMINOPHEN TAB 325 MG TAB PO PRN (20:36)
[2023-05-26] MEDS: KETOROLAC 15 MG/ML 1 ML VIAL IVP PRN ×4 (00:43→19:14)
[2023-05-26] MEDS: NICOTINE 21MG/24HR PATCH TRANSDERM SCH (07:52)
[2023-05-26] MEDS: PANTOPRAZOLE 40 MG/10 ML VIAL IVP SCH (07:52)
--- NOTE | 2023-05-26 09:31 | P.PN ---
Subjective Progress Note Date: 05/26/23 57-year-old male with history of laryngeal carcinoma, who apparently was over at the cancer center, for his first radiation treatment. He apparently was laying flat, became short of breath, and had a change in mental status, and a CODE BLUE was called. The patient never lost pulses, and he never stopped breathing. The rapid response team responded to the CODE BLUE and the patient was sent to the ER to be evaluated. In the emergency room, the patient apparently was having significant respiratory difficulty, and he was stridorous, and for that reason, he was intubated, by anesthesia, using fiberoptics. The patient is currently in the emergency department. The plan is for tracheostomy, possibly tomorrow. Urine nose throat doctor has been consulted. Currently, the patient is on the ventilator, with settings of assist control, rate 20, tidal volume 450, FiO2 50%, and PEEP of 5. He has propofol running at 50 mcg/kg/m, Versed 5 mg an hour, and saline at 100 mL an hour. In addition to laryngeal carcinoma, he has a history of COPD, syncope, Graves' disease, diverticular disease, as a current every day smoker. He has had no treatment for his cancer as yet. Today was the first radiation treatment. White count 11.5, hemoglobin 16.9, hematocrit 54, and platelet count 233,000. Blood gases show pO2 397, pCO2 71, and a pH is 7.31. Sodium 135, potassium 4.4, chlorides 91, CO2 40, BUN 22, and creatinine 0.57. Based on the bicarbonate concentration of 40, the patient's baseline Pita 2 is right around 68+ or -2 mmHg. Chest x-ray shows borderline heart size, and interstitial prominence. Progress note dated 05/21/2023. 57-year-old male that we saw yesterday in the emergency department. The patient has a recent diagnosis of laryngeal carcinoma, and was at the cancer center yest erday, his first radiation treatment, at which time, he had mental status changes, and respiratory difficulty, ended up in the emergency department, and was intubated. He is seen today in the intensive care unit, room 263. He remains on mechanical ventilator. His ventilator settings include the volume assist control, rate 20, tidal volume 450, FiO2 50%, and PEEP of 5. Blood gases are pO2 117, pCO2 of 43, and pH is 7.45. The FiO2 was reduced from 50%, down to 40%. The patient is currently on saline at 100 mL an hour, and propofol at 50 mcg/kg/m. Versed has been weaned off. The patient is to be seen by ear nose and throat physician, for possible tracheostomy. White count 12.2, hemoglobin 13.7, hematocrit 44.4, with a normal platelet count. Sodium 137, potassium 4.4, chlorides 105, CO2 24, anion gap normal, BUN 15, and creatinine 0.47. Chest x- ray shows no acute cardiopulmonary disease. Computed tomography scan of the neck shows an ill-defined right laryngeal mass. Progress note dated 05/22/2023. 57-year-old male, seen a couple days ago in the emergency department. The ruben zavala was recently discovered to have laryngeal carcinoma, and was over the [facility], to begin treatment, with radiation. Because of worsening respiratory status, he was transferred over to the emergency department, where he was intubated, because of a compromised airway, and stridor. He was actually intubated by anesthesia I believe. Anyway, the patient underwent a tracheostomy, yesterday, and is currently in the intensive care unit. He's postop day #1, status post tracheostomy. He is currently on a 40% trach collar. He is getting saline at 100 mL an hour. He is in no distress. White count 10.5, hemoglobin 13.4, hematocrit 42.8, with a normal platelet count. Sodium 137, potassium 4, chlorides 103, CO2 30, anion gap 4, BUN 8, and creatinine 0.48. Chest x-ray show some mild basilar atelectasis, and a midline tracheostomy tube. Progress note dated 05/23/2023. 57-year-old male, seen initially in the emergency department, with a diagnosis of respiratory failure secondary to newly diagnosed laryngeal cancer. The patient is status post tracheostomy, performed by Dr. Sams. The patient is seen today in room 263. Continues on trach collar 40%. He is getting saline at 100 mL an hour. The patient could be considered for possible transfer, out of the unit. The patient has not yet had any treatment for his laryngeal cancer. The other day when he was over at [facility], he was to have his initial treatment. Currently labs include a white count 12.7, hemoglobin 13.9, hematocrit 0.3, and a normal platelet count. Sodium 135, potassium 4.2, chlor ides 100, CO2 33, BUN 6, and creatinine 0.43. Chest x-ray from yesterday, she was a midline tracheostomy tube, and some bibasilar infiltrates/atelectasis. On today's evaluation of 05/24/2023, the patient remains on a 40% trach collar. The patient is a #8 Shiley trache[address] tube in place, fenestrated. The patient remains nothing by mouth and the patient is going to have effective inserted today. The tracheostomy tube was inserted by ENT. BUN is at 6 with a creatinine of 0.4. The white cycles of 4.7 with a hemoglobin 15.9. The patient is currently on IV cefazolin. No signs of any significant respiratory distress. He is on a 40% trach collar. He respiratory secretions are copious, loose, liquidy and brown in color. Noted the patient has laryngeal cancer and he was supposed to start radiation therapy to his neck and he developed significant respiratory compromise requiring intubation mechanical ventilation. Hemodynamically stable at this point in time. No other significant events overnight. Is a heavy smoker. On today's evaluation of 05/25/2023, the patient is calm and comfortable and the patient underwent a PEG tube insertion. The patient has a number AHI tracheost cezar tube in place. Rest or secretions have subsided significantly since yesterday. The patient remains on IV cefazolin. Enteral feeding will be started today. He remains on a 35% trach collar. Otherwise, no other significant complaints. His oxygenation is stable. Hemoglobin is at 13.9 and this was from yesterday with a BUN of 6 and a creatinine of 0.4. No new labs are available from today. He is hemodynamically stable. No other significant events overnight. He is very hard of hearing. No issues with pain. 13 2022, the patient's respiratory secretions are improving and they are less copious. No signs of any respiratory distress. He is on room air oxygen. His pulse ox on room air is in order of 92%. At same time, the patient was started on enteral feeding for nutritional support and currently is on Jevity at 40 mL an hour. Tolerating enteral feeding. No abdominal pain or distention. Positive bowel sounds. White cell count is down to 6.9 with a hemoglobin 14.5 and a platelet count of 199. He had is at 14 with a creatinine of 0.5. The patient had another sputum sample collected on 05/24/2023 that showed normal respiratory juan. No other complaints otherwise for now. He is doing well. He is hemodynamically stable. Awake and alert and communicating. Objective - Vital Signs Vital signs: Vital Signs Temp 98.4 F 05/26/23 07:45 Pulse 81 05/26/23 07:45 Resp 18 05/26/23 07:45 BP 120/67 05/26/23 07:45 Pulse Ox 92 L 05/26/23 07:45 FiO2 35 05/25/23 08:00 Intake & Output 05/25/23 05/26/23 05/26/23 18:59 06:59 18:59 Intake Total 50 100 290 Balance 50 100 290 Weight 66.4 kg Intake: Intake, IV Titration 50 50 Amount ceFAZolin 2 gm In Sodium 50 50 Chloride 0.9% 50 ml @ 100 mls/hr IVPB Q8HR [facility] Rx# :[id number] Tube Feeding 100 240 Other: # Voids 1 1 # Bowel Movements 1 - Exam No acute distress, laying in bed, breathing normally, midline tracheostomy tube in place. The patient has a tracheostomy tube Shiley #8, fenestrated. The patient is currently on 35% trach collar Head exam was generally normal. There was no scleral icterus or corneal arcus. Mucous membranes were moist. HEENT examination is grossly unremarkable. Neck supple. Full range of motion. No adenopathy thyromegaly or neck vein distention. The patient has a midline tracheostomy. A trach collar is noted over the tracheostomy tube. Cardiovascular examination reveals regular rhythm rate. S1-S2 normal. No S3 or S4. No discernible murmur noted. Lungs reveal clear breath sounds. Breath sounds are equal bilaterally. No adventitious lung sounds including wheezes rhonchi or crackles. Abdomen soft bowel sounds are heard. No masses or tenderness. The patient's has a PEG tube in place Extremities are intact. No cyanosis clubbing or edema. Skin is without rash or lesion. Neurologic examination cannot be assessed. - Labs CBC & Chem 7: 05/25/23 10:45 05/25/23 10:45 Labs: Abnormal Lab Results - Last 24 Hours (Table) 05/25/23 05/25/23 Range/Units 10:45 10:45 MCV 100.2 H (80.0-100.0) fL Carbon Dioxide 34 H (22-30) mmol/L Creatinine 0.52 L (0.66-1.25) mg/dL Microbiology - Last 24 Hours (Table) 05/24/23 12:00 Gram Stain - Final Sputum Sputum Culture - Final Assessment and Plan Plan: Acute hypoxic respiratory failure secondary to laryngeal cancer and anatomic obstruction of the airway. The patient is S/P intubation and mechanical ventilation, 05/20/2020, secondary to respiratory compromise and stridor, in a patient with a known history of laryngeal carcinoma. The patient was given a t racheostomy tube the patient has a #8 Shiley tracheostomy tube in place. The respiratory secretions are improving and the patient is currently on room air oxygen. Sputum samples have been negative for any microbial growth. Postop day #7, status post tracheostomy. The patient may have underlying bronchitis and the patient is bringing up copious amounts vessel secretions. Rule out underlying tracheal bronchitis. post op PEG tube insertion COPD History of syncope. Graves' disease. Diverticular disease. Ongoing tobacco use with nicotine addiction. History of marijuana use. Plan: Discontinue the IV antibiotics Sputum samples are negative for any bacterial growth Provide albuterol nebulizer treatments 3 times a day Frequent suctioning and pulmonary toileting Continue enteral feeding for nutritional support and the patient is currently on [facility] Diabetic education We'll continue to follow, discharge planning is in progress.
[2023-05-26] MEDS: ACETAMINOPHEN TAB 325 MG TAB PO PRN ×3 (09:53→20:25)
--- NOTE | 2023-05-26 12:56 | P.PN ---
Subjective Progress Note Date: 05/26/23 CHIEF COMPLAINT: Laryngeal cancer HISTORY OF PRESENT ILLNESS: Patient postop day #2 status post PEG tube placement. Patient sitting up at bedside chair comfortably. No pain reported. He did have a bowel movement. He is tolerating tube feeds. Patient did have a temp of 101.3 last night. WBC is normal as of yesterday at 6.9. Speech therapy for a modified barium swallow which did have evidence of silent aspiration. PHYSICAL EXAM: VITAL SIGNS: Reviewed GENERAL: Well-developed in no acute distress. HEENT: No sclera icterus. Extraocular movements grossly intact. Moist buccal mucosa. Head is atraumatic, normocephalic. Hears conversational speech. No nasal drainage. NECK: Supple without lymphadenopathy. CHEST: Non-labored respirations and equal bilateral excursions. CARDIOVASCULAR: Palpable 2+ radial pulses. ABDOMEN: Soft. Nondistended. PEG tube site clean dry and intact MUSCULOSKELETAL: No clubbing or cyanosis. NEUROLOGIC: No focal or lateralizing signs. Cranial nerves II through XII grossly intact. PSYCH: Appropriate affect. Alert and oriented to person, place and time. SKIN: Well perfused. Good skin turgor. ASSESSMENT: Laryngeal cancer Status post tracheostomy Prolonged nothing by mouth status Moderate protein malnutrition secondary to inadequate protein intake. Hypoalbuminemia. Tobacco abuse disorder Diaphragmatic hiatal hernia, midline, 3 cm Retrognathia PLAN: -Patient can be discharged from surgical standpoint when medically cleared -Okay to advance tube feeds to goal Physician Chemical Engineering Technologist note has been reviewed by physician. Signing provider agrees with the documented findings, assessment, and plan of care. Objective - Vital Signs Vital signs: Vital Signs Temp 98.4 F 05/26/23 07:45 Pulse 81 05/26/23 07:45 Resp 18 05/26/23 07:45 BP 120/67 05/26/23 07:45 Pulse Ox 92 L 05/26/23 07:45 FiO2 35 05/25/23 08:00 Intake & Output 05/25/23 05/26/23 05/26/23 18:59 06:59 18:59 Intake Total 50 100 290 Balance 50 100 290 Weight 66.4 kg Intake: Intake, IV Titration 50 50 Amount ceFAZolin 2 gm In Sodium 50 50 Chloride 0.9% 50 ml @ 100 mls/hr IVPB Q8HR [facility] Rx# :[id number] Tube Feeding 100 240 Other: # Voids 1 1 # Bowel Movements 1 - Labs CBC & Chem 7: 05/25/23 10:45 05/25/23 10:45 Labs: Abnormal Lab Results - Last 24 Hours (Table) 05/25/23 05/25/23 Range/Units 10:45 10:45 MCV 100.2 H (80.0-100.0) fL Carbon Dioxide 34 H (22-30) mmol/L Creatinine 0.52 L (0.66-1.25) mg/dL Microbiology - Last 24 Hours (Table) 05/24/23 12:00 Gram Stain - Final Sputum Sputum Culture - Final
--- NOTE | 2023-05-26 13:47 | P.PN ---
Subjective Progress Note Date: 05/26/23 57-year-old man with a history of head and neck cancer with obstructing laryngeal mass present for respiratory failure, obtundation. Patient was in [facility] about to receive his first radiation treatment to his neck for laryngeal carcinoma, but prior to receiving treatment he had an episode of hypoxia, obtundation. CODE BLUE was called at the time, and patient was noted to be hypoxic to 50-60% saturation, was placed on nonrebreather and improved to mid 90s. Subsequently he was transferred to the emergency room for further evaluation. During his ER course, patient became more obtunded, requiring emergent intubation. Anesthesia was called for emergent intubation with possible need for surgical airway. ENT came to bedside in case tracheostomy was required. Anesthesia was able to get the patient intubated with great difficulty, during the procedure was notable that he had friable mucosa with easy bleeding of the mass. In the emergency room, patient was afebrile, 151/84, heart rate 115, 98% on 15 L of nonrebreather. ECG demonstrated leukocytosis to 11.5, MCV of 101.5. Basic metabolic panel showed sodium of 135, chloride 91, CO2 40, BUN 22, creatinine 1.57. Liver function tests are unremarkable. Troponin was less than 0.012. Coags are unremarkable. Initial pH on VBG was 7.08 with a pCO2 of 134. Following intubation, his ABG demonstrated pCO2 of 71, pH of 7.31. Chest x-ray showed normal-sized heart, clear parenchyma bilaterally, post intubation chest x-ray showed breathing tube in good position. EKG demonstrated sinus tachycardia with peaked P waves consistent with right atrial enlargement. Case was discussed with the emergency room provider at bedside, anesthesia, ENT physician - Patient was ultimately transferred to the intensive care unit for further management. Rad-Onc recommended holding any further radiation treatments. Underwent tracheostomy on 05/21/2023. Underwent PEG 05/24/2023. Plan to retun home with [facility]. 05/25 Patient was seen and examined. He reports well controlled pain. Plans to initiate tube feeds. BP 122/67 P 83 RR 16 98% on trachcollar FiO2 35%. CBC shows MCV of 100.2. BMP shows bicab 34, Cr 0.52. 05/26 Patient was seen and examined. He has no complaints. Discussed with SELENA Rose, plans to set up TF and trach supplies, not sure if it will happen today. Video swallow shows silent aspiration. BP 119/70 P 75 RR 19 96% on RA. General: non toxic, no distress, appears at stated age, cachectic Derm: warm, dry, tracheostomy with blood soaked dressing Head: atraumatic, normocephalic, symmetric Eyes: EOMI, no lid lag, anicteric sclera Mouth: no lip lesion, mucus membranes moist Cardiovascular: S1S2 reg, no murmur Lungs: CTA bilateral, no rhonchi, no rales , no accessory muscle use Abdominal: soft, nontender to palpation, PEG Ext: no gross muscle atrophy, no edema, no contractures Psych: Alert Acute hypercarbic respiratory failure Laryngeal mass causing upper airway obstruction Head and neck cancer Based on my assessment of this patient, this patient meets a moderate complexity level of care. Patient has a laryngeal CA with upper airway obstruction with severe exacerbation or progression of disease which poses a threat to life or bodily function. Status post trach 05/21. Status post PEG 05/24. Acute hypercarbic respiratory failure: Status post trach 05/21. Trach collar FiO2 35%. Aggressive suctioning and pulm toileting. Empirically on Kefzol 2g IV TID. Laryngeal mass causing upper airway obstruction: Status post PEG 05/24. ST consult for TF recommendations. Head and neck cancer: Oncology and Rad-Onc follow up. Protonix 40 mg IV QD for GI prophylaxis. SCDs for DVT prophylaxis. FULL CODE. Dispo: Plans for discharge home when TF and trach supplies are set up. I have reviewed the following jewelry consultant notes: Pulmonology and Surgery note. I have reviewed the results of the following tests: I have ordered the following tests: I have discussed the care of this patient with the following independent historian: Discussed with SW as above. I have independently interpreted the following test below: I have discussed the management of this patient with the following physician: Objective - Vital Signs Vital signs: Vital Signs Temp 98.5 F 05/26/23 12:56 Pulse 75 05/26/23 12:56 Resp 19 05/26/23 12:56 BP 119/70 05/26/23 12:56 Pulse Ox 96 05/26/23 12:56 FiO2 35 05/25/23 08:00 Intake & Output 05/25/23 05/26/23 05/26/23 18:59 06:59 18:59 Intake Total 50 100 290 Balance 50 100 290 Weight 66.4 kg Intake: Intake, IV Titration 50 50 Amount ceFAZolin 2 gm In Sodium 50 50 Chloride 0.9% 50 ml @ 100 mls/hr IVPB Q8HR [facility] Rx# :[id number] Tube Feeding 100 240 Other: # Voids 1 1 # Bowel Movements 1 - Labs CBC & Chem 7: 05/25/23 10:45 05/25/23 10:45 Labs: Microbiology - Last 24 Hours (Table) 05/24/23 19:35 Urine Culture - Final Urine,Clean Catch 05/24/23 12:00 Gram Stain - Final Sputum Sputum Culture - Final
[2023-05-26 14:01] VITALS: BMI 21.6
[2023-05-27] MEDS: KETOROLAC 15 MG/ML 1 ML VIAL IVP PRN ×3 (01:16→09:21)
[2023-05-27] MEDS: PANTOPRAZOLE 40 MG/10 ML VIAL IVP SCH (09:21)
[2023-05-27] MEDS: NICOTINE 21MG/24HR PATCH TRANSDERM SCH (09:21)
--- NOTE | 2023-05-27 10:40 | P.PN ---
Subjective Progress Note Date: 05/27/23 57-year-old male with history of laryngeal carcinoma, who apparently was over at the cancer center, for his first radiation treatment. He apparently was laying flat, became short of breath, and had a change in mental status, and a CODE BLUE was called. The patient never lost pulses, and he never stopped breathing. The rapid response team responded to the CODE BLUE and the patient was sent to the ER to be evaluated. In the emergency room, the patient apparently was having significant respiratory difficulty, and he was stridorous, and for that reason, he was intubated, by anesthesia, using fiberoptics. The patient is currently in the emergency department. The plan is for tracheostomy, possibly tomorrow. Urine nose throat doctor has been consulted. Currently, the patient is on the ventilator, with settings of assist control, rate 20, tidal volume 450, FiO2 50%, and PEEP of 5. He has propofol running at 50 mcg/kg/m, Versed 5 mg an hour, and saline at 100 mL an hour. In addition to laryngeal carcinoma, he has a history of COPD, syncope, Graves' disease, diverticular disease, as a current every day smoker. He has had no treatment for his cancer as yet. Today was the first radiation treatment. White count 11.5, hemoglobin 16.9, hematocrit 54, and platelet count 233,000. Blood gases show pO2 397, pCO2 71, and a pH is 7.31. Sodium 135, potassium 4.4, chlorides 91, CO2 40, BUN 22, and creatinine 0.57. Based on the bicarbonate concentration of 40, the patient's baseline Pita 2 is right around 68+ or -2 mmHg. Chest x-ray shows borderline heart size, and interstitial prominence. Progress note dated 05/21/2023. 57-year-old male that we saw yesterday in the emergency department. The patient has a recent diagnosis of laryngeal carcinoma, and was at the cancer center yest erday, his first radiation treatment, at which time, he had mental status changes, and respiratory difficulty, ended up in the emergency department, and was intubated. He is seen today in the intensive care unit, room 263. He remains on mechanical ventilator. His ventilator settings include the volume assist control, rate 20, tidal volume 450, FiO2 50%, and PEEP of 5. Blood gases are pO2 117, pCO2 of 43, and pH is 7.45. The FiO2 was reduced from 50%, down to 40%. The patient is currently on saline at 100 mL an hour, and propofol at 50 mcg/kg/m. Versed has been weaned off. The patient is to be seen by ear nose and throat physician, for possible tracheostomy. White count 12.2, hemoglobin 13.7, hematocrit 44.4, with a normal platelet count. Sodium 137, potassium 4.4, chlorides 105, CO2 24, anion gap normal, BUN 15, and creatinine 0.47. Chest x- ray shows no acute cardiopulmonary disease. Computed tomography scan of the neck shows an ill-defined right laryngeal mass. Progress note dated 05/22/2023. 57-year-old male, seen a couple days ago in the emergency department. The ruben zavala was recently discovered to have laryngeal carcinoma, and was over the [facility], to begin treatment, with radiation. Because of worsening respiratory status, he was transferred over to the emergency department, where he was intubated, because of a compromised airway, and stridor. He was actually intubated by anesthesia I believe. Anyway, the patient underwent a tracheostomy, yesterday, and is currently in the intensive care unit. He's postop day #1, status post tracheostomy. He is currently on a 40% trach collar. He is getting saline at 100 mL an hour. He is in no distress. White count 10.5, hemoglobin 13.4, hematocrit 42.8, with a normal platelet count. Sodium 137, potassium 4, chlorides 103, CO2 30, anion gap 4, BUN 8, and creatinine 0.48. Chest x-ray show some mild basilar atelectasis, and a midline tracheostomy tube. Progress note dated 05/23/2023. 57-year-old male, seen initially in the emergency department, with a diagnosis of respiratory failure secondary to newly diagnosed laryngeal cancer. The patient is status post tracheostomy, performed by Dr. Sams. The patient is seen today in room 263. Continues on trach collar 40%. He is getting saline at 100 mL an hour. The patient could be considered for possible transfer, out of the unit. The patient has not yet had any treatment for his laryngeal cancer. The other day when he was over at [facility], he was to have his initial treatment. Currently labs include a white count 12.7, hemoglobin 13.9, hematocrit 0.3, and a normal platelet count. Sodium 135, potassium 4.2, chlor ides 100, CO2 33, BUN 6, and creatinine 0.43. Chest x-ray from yesterday, she was a midline tracheostomy tube, and some bibasilar infiltrates/atelectasis. On today's evaluation of 05/24/2023, the patient remains on a 40% trach collar. The patient is a #[address], fenestrated. The patient remains nothing by mouth and the patient is going to have effective inserted today. The tracheostomy tube was inserted by ENT. BUN is at 6 with a creatinine of 0.4. The white cycles of 4.7 with a hemoglobin 15.9. The patient is currently on IV cefazolin. No signs of any significant respiratory distress. He is on a 40% trach collar. He respiratory secretions are copious, loose, liquidy and brown in color. Noted the patient has laryngeal cancer and he was supposed to start radiation therapy to his neck and he developed significant respiratory compromise requiring intubation mechanical ventilation. Hemodynamically stable at this point in time. No other significant events overnight. Is a heavy smoker. On today's evaluation of 05/25/2023, the patient is calm and comfortable and the patient underwent a PEG tube insertion. The patient has a number AHI tracheost cezar tube in place. Rest or secretions have subsided significantly since yesterday. The patient remains on IV cefazolin. Enteral feeding will be started today. He remains on a 35% trach collar. Otherwise, no other significant complaints. His oxygenation is stable. Hemoglobin is at 13.9 and this was from yesterday with a BUN of 6 and a creatinine of 0.4. No new labs are available from today. He is hemodynamically stable. No other significant events overnight. He is very hard of hearing. No issues with pain. 13 2022, the patient's respiratory secretions are improving and they are less copious. No signs of any respiratory distress. He is on room air oxygen. His pulse ox on room air is in order of 92%. At same time, the patient was started on enteral feeding for nutritional support and currently is on Jevity at 40 mL an hour. Tolerating enteral feeding. No abdominal pain or distention. Positive bowel sounds. White cell count is down to 6.9 with a hemoglobin 14.5 and a platelet count of 199. He had is at 14 with a creatinine of 0.5. The patient had another sputum sample collected on 05/24/2023 that showed normal respiratory juan. No other complaints otherwise for now. He is doing well. He is hemodynamically stable. Awake and alert and communicating. On 05/27/2023, the patient has no specific complaints. Rest or secretions are minimal at this point in time and the patient has no respiratory difficulties. The patient is breathing comfortably through his tracheostomy tube. At the same time, the patient is receiving enteral feeding for nutritional support. Appropriate education was given. He is on Jevity. BUN is at 14 with a creatinine of 0.5. WBC count at 6.5 with a hemoglobin of 14.5. He is ambulating. He has no other specific complaints otherwise. Discharge planning is in progress. Objective - Vital Signs Vital signs: Vital Signs Temp 98.8 F 05/27/23 01:43 Pulse 78 05/27/23 01:43 Resp 18 05/27/23 01:43 BP 126/77 05/27/23 01:43 Pulse Ox 95 05/27/23 01:43 FiO2 35 05/25/23 08:00 Intake & Output 05/26/23 05/27/23 05/27/23 18:59 06:59 18:59 Intake Total 290 Balance 290 Weight 66.4 kg Intake: Intake, IV Titration 50 Amount ceFAZolin 2 gm In Sodium 50 Chloride 0.9% 50 ml @ 100 mls/hr IVPB Q8HR [facility] Rx# :[id number] Tube Feeding 240 Other: # Voids 1 # Bowel Movements 1 1 - Exam No acute distress, laying in bed, breathing normally, midline tracheostomy tube in place. The patient has a tracheostomy tube Shiley #8, fenestrated. The patient is currently on 35% trach collar Head exam was generally normal. There was no scleral icterus or corneal arcus. Mucous membranes were moist. HEENT examination is grossly unremarkable. Neck supple. Full range of motion. No adenopathy thyromegaly or neck vein distention. The patient has a midline tracheostomy. A trach collar is noted over the tracheostomy tube. Cardiovascular examination reveals regular rhythm rate. S1-S2 normal. No S3 or S4. No discernible murmur noted. Lungs reveal clear breath sounds. Breath sounds are equal bilaterally. No adventitious lung sounds including wheezes rhonchi or crackles. Abdomen soft bowel sounds are heard. No masses or tenderness. The patient's has a PEG tube in place Extremities are intact. No cyanosis clubbing or edema. Skin is without rash or lesion. Neurologic examination cannot be assessed. - Labs CBC & Chem 7: 05/25/23 10:45 05/25/23 10:45 Labs: Microbiology - Last 24 Hours (Table) 05/24/23 19:35 Urine Culture - Final Urine,Clean Catch 05/24/23 12:00 Gram Stain - Final Sputum Sputum Culture - Final Assessment and Plan Plan: Acute hypoxic respiratory failure secondary to laryngeal cancer and anatomic obstruction of the airway. The patient is S/P intubation and mechanical hermann tilation, 05/20/2020, secondary to respiratory compromise and stridor, in a patient with a known history of laryngeal carcinoma. The patient was given a tracheostomy tube the patient has a #8 Shiley tracheostomy tube in place. The respiratory secretions are improving and the patient is currently on room air oxygen. Sputum samples have been negative for any microbial growth. Postop day # 9, status post tracheostomy. The patient may have underlying bronchitis and the patient is bringing up copious amounts vessel secretions. Rule out underlying tracheal bronchitis. post op PEG tube insertion, the patient is receiving enteral feeding for nutritional support COPD History of syncope. Graves' disease. Diverticular disease. Ongoing tobacco use with nicotine addiction. History of marijuana use. Plan: Clinically stable Tolerating enteral feeding for nutritional support Discontinue the IV antibiotics Sputum samples are negative for any bacterial growth Provide albuterol nebulizer treatments 3 times a day Respiratory secretions are scant Continue enteral feeding for nutritional support and the patient is currently on Jevity Consider discharge home today.
--- NOTE | 2023-05-27 13:06 | P.DS ---
Providers Date of admission: 05/20/23 12:30 Expected date of discharge: 05/27/23 Attending physician: Eunice Juarez MD Consults: 05/20/23 12:29 Consult Physician Stat Consulting Provider: Dylan Chen Consult Reason/Comments: Laryngeal mass Do you want consulting provider notified?: Already Contacted Consult Physician Urgent Consulting Provider: Edmar Wood Consult Reason/Comments: ICU management, laryngeal mass Do you want consulting provider notified?: Already Contacted 05/22/23 12:13 Consult Physician Routine Consulting Provider: Shannon Mercedes Consult Reason/Comments: Peg tube placement Do you want consulting provider notified?: Already Contacted Primary care physician: [facility] Course: 57-year-old man with a history of head and neck cancer with obstructing laryngeal mass present for respiratory failure, obtundation. Patient was in [facility] about to receive his first radiation treatment to his neck for laryngeal carcinoma, but prior to receiving treatment he had an episode of hypoxia, obtundation. CODE BLUE was called at the time, and patient was noted to be hypoxic to 50-60% saturation, was placed on nonrebreather and improved to mid 90s. Subsequently he was transferred to the emergency room for further evaluation. During his ER course, patient became more obtunded, requiring emergent intubation. Anesthesia was called for emergent intubation with possible need for surgical airway. ENT came to bedside in case tracheostomy was required. Anesthesia was able to get the patient intubated with great difficulty, during the procedure was notable that he had friable mucosa with easy bleeding of the mass. In the emergency room, patient was afebrile, 151/84, heart rate 115, 98% on 15 L of nonrebreather. ECG demonstrated leukocytosis to 11.5, MCV of 101.5. Basic metabolic panel showed sodium of 135, chloride 91, CO2 40, BUN 22, creatinine 1.57. Liver function tests are unremarkable. Troponin was less than 0.012. Coags are unremarkable. Initial pH on VBG was 7.08 with a pCO2 of 134. Following intubation, his ABG demonstrated pCO2 of 71, pH of 7.31. Chest x-ray showed normal-sized heart, clear parenchyma bilaterally, post intubation chest x-ray showed breathing tube in good position. EKG demonstrated sinus tachycardia with peaked P waves consistent with right atrial enlargement. Case was discussed with the emergency room provider at bedside, anesthesia, ENT physician - Patient was ultimately transferred to the intensive care unit for further management. Rad-Onc recommended holding any further radiation treatments. Underwent tracheostomy on 05/21/2023. Underwent PEG 05/24/2023. Plan to retun home with [facility]. 05/25 Patient was seen and examined. He reports well controlled pain. Plans to initiate tube feeds. BP 122/67 P 83 RR 16 98% on trachcollar FiO2 35%. CBC shows MCV of 100.2. BMP shows bicab 34, Cr 0.52. 05/26 Patient was seen and examined. He has no complaints. Discussed with SELENA Rose, plans to set up TF and trach supplies, not sure if it will happen today. Video swallow shows silent aspiration. BP 119/70 P 75 RR 19 96% on RA. 05/27 Patient was seen and examined. He has no complaints. Tube feeds and trach supplies to be sent up at home today. Plans for discharge today. Patient to remain NPO. Tube feeds: Jevity 1.5 65 cc/hr, 40 cc free water flush every 4 hours Follow up with your PCP within 1-2 days, Radiation Oncology and Pulmonology within 1 week of discharge. Pertinent studies include video swallow, KUB, chest x-ray, neck CT, CTA chest Pertinent procedures include PEG, tracheostomy General: non toxic, no distress, appears at stated age, cachectic Derm: warm, dry, tracheostomy Head: atraumatic, normocephalic, symmetric Eyes: EOMI, no lid lag, anicteric sclera Mouth: no lip lesion, mucus membranes moist Cardiovascular: S1S2 reg, no murmur Lungs: CTA bilateral, no rhonchi, no rales , no accessory muscle use Abdominal: soft, nontender to palpation, PEG Ext: no gross muscle atrophy, no edema, no contractures Psych: Alert Discharge diagnosis: Acute hypercarbic respiratory failure Laryngeal mass causing upper airway obstruction Head and neck cancer This complex discharge took 35 minutes to complete. Patient Condition at Discharge: Stable Plan - Discharge Summary Discharge Rx Participant: Yes New Discharge Prescriptions: Continue OLANZapine [ZyPREXA] 2.5 mg PO DIRECTED Lido/Mdryl/Dexa/Aceta 5 ml PO TID PRN PRN Reason: Pain Omeprazole [PriLOSEC] 20 mg PO AC-BID HYDROcodone/APAP 5-325MG [Hubbard 5-325] 1 tab PO Q4HR PRN PRN Reason: Pain ALPRAZolam [Xanax] 0.25 mg PO DAILY Ondansetron [Zofran] 4 - 8 mg PO Q4H PRN PRN Reason: Nausea And Vomiting Aprepitant [Emend] 80 mg PO DIRECTED Discharge Medication List ALPRAZolam [Xanax] 0.25 mg PO DAILY 05/20/23 [History] Aprepitant [Emend] 80 mg PO DIRECTED 05/20/23 [History] HYDROcodone/APAP 5-325MG [Hubbard 5-325] 1 tab PO Q4HR PRN 05/20/23 [History] Lido/Mdryl/Dexa/Aceta 5 ml PO TID PRN 05/20/23 [History] OLANZapine [ZyPREXA] 2.5 mg PO DIRECTED 05/20/23 [History] Omeprazole [PriLOSEC] 20 mg PO AC-BID 05/20/23 [History] Ondansetron [Zofran] 4 - 8 mg PO Q4H PRN 05/20/23 [History] Follow up Appointment(s)/Referral(s): Jung Gutierrez DO [Primary Care Provider] - 06/04/23 11:15 am (Please take your discharge packet with you to this appointment.) Emilio Bright MD [STAFF PHYSICIAN] - 06/01/23 10:30 am (You will see Dr Peña) Luis Whipple MD [STAFF PHYSICIAN] - 06/14/23 8:30 am (Dr Wood will be seeing you for the appointment.) Activity/Diet/Wound Care/Special Instructions: Diet: Nothing by mouth Tube feeds: Jevity 1.5 65 cc/hr, 40 cc free water flush every 4 hours Follow up with your PCP within 1-2 days and Radiation Oncology within 1 week of discharge. Discharge Disposition: HOME SELF-CARE
--- NOTE | 2023-05-27 14:29 | P.PN ---
Subjective Progress Note Date: 05/27/23 CHIEF COMPLAINT: Laryngeal cancer HISTORY OF PRESENT ILLNESS: Patient postop day #3 status post PEG tube placement. Patient sitting up at bedside chair comfortably. No pain reported. He did have a bowel movement. He is tolerating tube feeds. And scheduled for discharge today. PHYSICAL EXAM: VITAL SIGNS: Reviewed GENERAL: Well-developed in no acute distress. HEENT: No sclera icterus. Extraocular movements grossly intact. Moist buccal mucosa. Head is atraumatic, normocephalic. Hears conversational speech. No nasal drainage. NECK: Supple without lymphadenopathy. CHEST: Non-labored respirations and equal bilateral excursions. CARDIOVASCULAR: Palpable 2+ radial pulses. ABDOMEN: Soft. Nondistended. PEG tube site clean dry and intact MUSCULOSKELETAL: No clubbing or cyanosis. NEUROLOGIC: No focal or lateralizing signs. Cranial nerves II through XII grossly intact. PSYCH: Appropriate affect. Alert and oriented to person, place and time. SKIN: Well perfused. Good skin turgor. ASSESSMENT: Laryngeal cancer Status post tracheostomy Prolonged nothing by mouth status Moderate protein malnutrition secondary to inadequate protein intake. Hypoalbuminemia. Tobacco abuse disorder Diaphragmatic hiatal hernia, midline, 3 cm Retrognathia PLAN: -Patient can be discharged from surgical standpoint when medically cleared -Continue tube feeds as per manager document control recommendations Physician Drawer [employer] [place] note has been reviewed by physician. Signing provider agrees with the documented findings, assessment, and plan of care. Objective - Vital Signs Vital signs: Vital Signs Temp 98.4 F 05/27/23 09:10 Pulse 74 05/27/23 09:10 Resp 17 05/27/23 09:10 BP 112/69 05/27/23 09:10 Pulse Ox 96 05/27/23 09:10 FiO2 35 05/25/23 08:00 Intake & Output 05/26/23 05/27/23 05/27/23 18:59 06:59 18:59 Intake Total 290 Balance 290 Weight 66.4 kg 66.4 kg Intake: Intake, IV Titration 50 Amount ceFAZolin 2 gm In Sodium 50 Chloride 0.9% 50 ml @ 100 mls/hr IVPB Q8HR [facility] Rx# :[id number] Tube Feeding 240 Other: Voiding Method Urinal # Voids 1 # Bowel Movements 1 1 - Labs CBC & Chem 7: 05/25/23 10:45 05/25/23 10:45 Labs: Microbiology - Last 24 Hours (Table) 05/24/23 19:35 Urine Culture - Final Urine,Clean Catch
[2023-05-27 15:48] VITALS: BP 112/69; PULSE 74; RESP 17; TEMP 98.4
== END 2023-05-27 14:15 | disposition home or self-care (01) | DRG 4 ==
LOC: EC 09:15 → 2SICU 12:30
PROVIDERS: ADMIT Internal Medicine; ATTEND Internal Medicine
PROC: 5A1945Z Respiratory Ventilation, 24-96 Consecutive Hours (ICD-10-PCS; 2023-05-20)
PROC: 0BH17EZ Insertion of Endotracheal Airway into Trachea, Via Natural or Artificial Opening (ICD-10-PCS; 2023-05-20)
PROC: D90B1ZZ Beam Radiation of Larynx using Photons 1 - 10 MeV (ICD-10-PCS; 2023-05-20)
PROC: 0B110F4 Bypass Trachea to Cutaneous with Tracheostomy Device, Open Approach (ICD-10-PCS; principal; 2023-05-21 16:40)
PROC: 0DH63UZ Insertion of Feeding Device into Stomach, Percutaneous Approach (ICD-10-PCS; 2023-05-24)
PROC: 3E0G76Z Introduction of Nutritional Substance into Upper GI, Via Natural or Artificial Opening (ICD-10-PCS; 2023-05-25)
DX: J96.01 Acute respiratory failure with hypoxia (principal); E44.0 Moderate protein-calorie malnutrition; J98.11 Atelectasis; C77.0 Secondary and unspecified malignant neoplasm of lymph nodes of head, face and neck; J96.22 Acute and chronic respiratory failure with hypercapnia; Z68.21 Body mass index [BMI] 21.0-21.9, adult; C32.1 Malignant neoplasm of supraglottis; E88.09 Other disorders of plasma-protein metabolism, not elsewhere classified; F17.210 Nicotine dependence, cigarettes, uncomplicated; K44.9 Diaphragmatic hernia without obstruction or gangrene; J40 Bronchitis, not specified as acute or chronic; M26.19 Other specified anomalies of jaw-cranial base relationship; E05.00 Thyrotoxicosis with diffuse goiter without thyrotoxic crisis or storm; J44.9 Chronic obstructive pulmonary disease, unspecified; K57.90 Diverticulosis of intestine, part unspecified, without perforation or abscess without bleeding; I51.7 Cardiomegaly; H91.90 Unspecified hearing loss, unspecified ear; Z79.899 Other long term (current) drug therapy; Z71.3 Dietary counseling and surveillance
CPT/HCPCS: 31500; 36415; 36600; 43246; 70491; 71045; 71275; 74019; 74230; 77386; 80048; 80053; 81001; 82803; 82805; 83735; 84484; 85025; 85027; 85610; 85730; 87070; 87086; 87205; 93005; 94002; 94003; 94640; 94660; 96361; 96374; 96375; 99291

== ENCOUNTER → 2023-06-24 | Outpatient (CLI) | payer BC ==
--- NOTE | 2023-06-24 12:46 | FL ---
Modified barium swallow. HISTORY: Dysphagia. Modified barium swallow was performed with the department of speech pathology. The patient was prese nted with various consistencies of barium. There is evidence of aspiration with all barium mixtures presented to the patient. Pooling of contras t noted within the piriform sinus and vallecula. Full report is to follow from the department of spee ch pathology. Impression: As above
== END | disposition home or self-care (01) ==
LOC: RADFLMAIN 11:12
PROVIDERS: ATTEND Radiology Radiation Oncology
DX: C77.0 Secondary and unspecified malignant neoplasm of lymph nodes of head, face and neck (principal); C32.1 Malignant neoplasm of supraglottis; R13.10 Dysphagia, unspecified
CPT/HCPCS: 74230

== ENCOUNTER → 2023-10-07 | Outpatient (CLI) | payer BC ==
--- NOTE | 2023-10-11 09:40 | PE ---
EXAMINATION TYPE: PET CT fusion skull to thigh DATE OF EXAM: 10/07/2023 COMPARISON: 05/20/2023, 03/09/2023 Prior PET/CT: 03/25/2023 HISTORY: Supraglottic neoplasm TECHNIQUE: Following the intravenous administration of 12.21 mCi of F-18 FDG, whole body images are performed from the skull base to the midthigh. Images are reviewed on the computer in the coronal, a xial, and sagittal planes. Reconstructed rotating images are created on independent workstation and reviewed on the computer. A localization and attenuation correction CT is performed in conjunction with the PET scan. DLP: 468.36 mGycm SCAN: Subsequent Blood glucose: 89 mg/dL Average Mediastinum SUV: 1.63 Average Liver SUV: 2.06 FINDINGS: Head and Neck: There is intense uptake in the posterior lateral right vocal cord level with an SUV of 9.56. Findings are compatible with neoplasm. There is increased uptake adjacent to the tracheostomy site which can be inflammatory in nature. NECK: Uptake in the right posterior lateral vocal cord level is again evident with an SUV of 8.46. THORAX: There is a focus radiotracer within a nodule within the right lower lung field, image 114, IBARRA V 5.2. Findings are suspicious for neoplasm. Tracheostomy opening has increased uptake likely inflammatory in nature. Some mild uptake is within p araspinal muscles on the right within the thorax. ABDOMEN: No abnormal uptake PELVIS: No abnormal uptake OSSEOUS STRUCTURES: No abnormal uptake LOCALIZATION CT: Scattered diverticular changes are within the sigmoid colon right renal cyst is pres ent COMPARISON: The intensity in the vocal cord level is diminished over the interval. No right supraclav icular adenopathy evident current examination. The lung nodule appears to be new. IMPRESSION: 1. Persistent uptake in the posterior lateral right cord level compatible with neoplasm. 2. There is a new lung nodule identified with elevated SUV suspicious for neoplasm.
== END | disposition home or self-care (01) ==
LOC: RADPETMAIN 10:13
PROVIDERS: ATTEND Radiology Radiation Oncology
DX: C32.1 Malignant neoplasm of supraglottis (principal); C77.0 Secondary and unspecified malignant neoplasm of lymph nodes of head, face and neck; R91.1 Solitary pulmonary nodule
CPT/HCPCS: 78815; A9552

== ENCOUNTER 2023-12-09 12:47 | Inpatient (IN) | payer BC ==
--- NOTE | 2023-12-09 13:29 | ED ---
Weakness HPI - General Chief complaint: Recheck/Abnormal Lab/Rx Stated complaint: excessive discharge from throat Time Seen by Provider: 12/09/23 12:58 Source: patient Mode of arrival: EMS Limitations: no limitations - History of Present Illness Initial comments: This is a 58-year-old male to ER for evaluation patient has history of laryngeal cancer coming in for shortness of breath and pain chronic pain back pain generalized bodyaches and pains. MD Complaint: generalized weakness -: days(s) Location: generalized Severity: moderate Severity scale (1-10): 6 Quality: tingling, aching Consistency: constant Improves with: none Worsens with: none Context: new medication Associated Symptoms: denies other symptoms - Related Data Home Medications Medication Instructions Recorded Confirmed Omeprazole [PriLOSEC] 20 mg PO BID PRN 05/20/23 12/09/23 Acetaminophen Tab [Tylenol Tab] 500 mg PO Q6H PRN 12/09/23 12/09/23 Ibuprofen [Motrin] 800 mg PO Q8H PRN 12/09/23 12/09/23 Allergies Allergy/AdvReac Type Severity Reaction Status Date / Time No Known Allergies Allergy Verified 12/09/23 16:16 Review of Systems ROS Statement: Those systems with pertinent positive or pertinent negative responses have been documented in the HPI. ROS Other: All systems not noted in ROS Statement are negative. Past Medical History Past Medical History: Cancer, COPD, Syncope, Thyroid Disorder Additional Past Medical History / Comment(s): Graves disease, diverticulosis History of Any Multi-Drug Resistant Organisms: None Reported Additional Past Surgical History / Comment(s): vasectomy, biopsy of throat, trach Past Anesthesia/Blood Transfusion Reactions: No Reported Reaction Past Psychological History: No Psychological Hx Reported Smoking Status: Current every day smoker Past Alcohol Use History: None Reported Past Drug Use History: None Reported - Past Family History Father History Unknown: Yes General Exam Limitations: no limitations General appearance: alert, anxious, in distress, cachectic Head exam: Present: atraumatic, normocephalic, normal inspection Eye exam: Present: normal appearance, PERRL, EOMI. Absent: scleral icterus, conjunctival injection, periorbital swelling ENT exam: Present: normal exam, mucous membranes moist Neck exam: Present: normal inspection. Absent: tenderness, meningismus, lymphadenopathy Respiratory exam: Present: normal lung sounds bilaterally. Absent: respiratory distress, wheezes, rales, rhonchi, stridor Cardiovascular Exam: Present: regular rate, normal rhythm, normal heart sounds. Absent: systolic murmur, diastolic murmur, rubs, gallop, clicks GI/Abdominal exam: Present: soft, normal bowel sounds. Absent: distended, tenderness, guarding, rebound, rigid Extremities exam: Present: normal inspection, full ROM, normal capillary refill. Absent: tenderness, pedal edema, joint swelling, calf tenderness Back exam: Present: normal inspection Neurological exam: Present: alert, oriented X3, CN II-XII intact Psychiatric exam: Present: normal affect, normal mood Skin exam: Present: warm, dry, intact, normal color. Absent: rash Course Vital Signs 12/09/23 12/09/23 12/09/23 12:51 14:55 15:10 Temperature 98.6 F Pulse Rate 86 86 84 Respiratory 20 Rate Blood Pressure 98/64 O2 Sat by Pulse 98 Oximetry Fraction of Inspired Oxygen (FIO2) 12/09/23 12/09/23 12/09/23 15:18 17:20 18:26 Temperature 98.1 F Pulse Rate 106 H 72 Respiratory 18 18 Rate Blood Pressure 86/50 98/53 O2 Sat by Pulse 99 95 Oximetry Fraction of 28 Inspired Oxygen (FIO2) 12/09/23 12/09/23 19:00 21:57 Temperature 98.2 F Pulse Rate 58 L 68 Respiratory 20 20 Rate Blood Pressure 96/52 O2 Sat by Pulse 97 98 Oximetry Fraction of Inspired Oxygen (FIO2) - Reevaluation(s) Reevaluation #1: 12/09/23 16:30 Medical records reviewed Reevaluation #2: 12/09/23 16:30 Patient's pain is controlled but feels well Reevaluation #3: 12/09/23 16:30 Patient informed of results and questions answered Reevaluation #4: Was pt. sent in by a medical professional or institution (, PA, FLAT SCREEN WORKER, urgent care, hospital, or [facility]...) When possible be specific @ -no Did you speak to anyone other than the patient for history (EMS, parent, family, police, friend...)? What history was obtained from this source @ -no Did you review nursing and triage notes (agree or disagree)? Why? @ -agree Are old charts reviewed (outside hosp., previous admission, EMS record, old EKG, old radiological studies, urgent care reports/EKG's, [facility] records)? Report findings @ -yes Differential Diagnosis (chest pain, altered mental status, abdominal pain women, abdominal pain men, vaginal bleeding, weakness, fever, dyspnea, syncope, headache, dizziness, GI bleed, back pain, seizure, CVA, palpatations, mental health, musculoskeletal)? @ -prior EKG interpreted by me (3pts min.). @ -yes X-rays interpreted by me (1pt min.). @ -yes negative for acute disease CT interpreted by me (1pt min.). @ -no U/S interpreted by me (1pt. min.). @ -no What testing was considered but not performed or refused? (CT, X-rays, U/S, labs)? Why? @ -none What meds were considered but not given or refused? Why? @ -none Did you discuss the management of the patient with other professionals (professionals i.e. , PA, FLAT SCREEN WORKER, lab, RT, psych nurse, socially responsible investment adviser, leather patcher, teacher, helicopter officer, casey saw operator)? Give summary @ -no Was smoking cessation discussed for >3mins.? @ -no Was critical care preformed (if so, how long)? @ -yes31 Were there social determinants of health that impacted care today? How? (Homelessness, low income, unemployed, alcoholism, drug addiction, transportation, low edu. Level, literacy, decrease access to med. care, group home, rehab)? @ -none Was there de-escalation of care discussed even if they declined (Discuss DNR or withdrawal of care, Hospice)? DNR status @ -no What co-morbidities impacted this encounter? (DM, HTN, Smoking, COPD, CAD, Cancer, CVA, ARF, Chemo, Hep., AIDS, mental health diagnosis, sleep apnea, morbid obesity)? @ -none Was patient admitted / discharged? Hospital course, mention meds given and route, prescriptions, significant lab abnormalities, going to OR and other pertinent info. @ - 58 male with significant lung cancer, patient has significant pneumonia superimposed, will admit for IV antibiotics, patient will also have pulmonology see Admitted Undiagnosed new problem with uncertain prognosis? @ -no Drug Therapy requiring intensive monitoring for toxicity (Heparin, Nitro, Insulin, Cardizem)? @ -no Were any procedures done? @ -no Diagnosis/symptom? @ -Pneumonia with underlying lung cancer Acute, or Chronic, or Acute on Chronic? @ -Acute Uncomplicated (without systemic symptoms) or Complicated (systemic symptoms)? @ -Complicated Side effects of treatment? @ -no Exacerbation, Progression, or Severe Exacerbation? @ -exacerbation Poses a threat to life or bodily function? How? (Chest pain, USA, VA, pneumonia, PE, COPD, DKA, ARF, appy, cholecystitis, CVA, Diverticulitis, Homicidal, Suicidal, threat to staff... and all critical care pts) @ -yes Reevaluation #5: Differential Weakness: Hypoglycemia, shock, sepsis, hyponatremia, anemia, infection, VA, ETOH, adverse medicine reaction, overdose, stroke, this is not meant to be an all-inclusive list. - Consultations Consultation #1: Sp[facility] with [facility] who agreed to admit this patient EKG Findings - EKG Comments: EKG Findings:: EKG is 117 DE 120 QRS 78 QTc 410 Procedures - Sepsis Sepsis Focused Exam #1 Time Sepsis Criteria Met: 16:00 Sepsis Focused Exam Date: 12/09/23 Sepsis Focused Exam Time: 23:00 Sepsis Focused Exam Complete: Yes Vital Signs & RN Notes Reviewed: Yes Capillary Refill: < 2 Seconds: Fingers, Toes Peripheral Pulses: Normal: Radial (R), Radial (L), Posterior Tibialis (R), Posterior Tibialis (L), Dorsalis Pedis (R), Dorsalis Pedis (L) Skin Color: Normal for Patient, Flushed, Erythema Respiratory Exam: respiratory distress, wheezes, rales, rhonchi, decreased breath sounds Cardiovascular Exam: regular rate Medical Decision Making - Medical Decision Making 58 male with significant lung cancer, patient has significant pneumonia superimposed, will admit for IV antibiotics, patient will also have pulmonology see - Lab Data Result diagrams: 12/15/23 06:51 12/15/23 20:13 Lab Results 12/09/23 12/09/23 12/09/23 Range/Units 14:01 14:01 14:01 WBC 22.8 H (3.8-10.6) k/uL RBC 4.07 L (4.30-5.90) m/uL Hgb 12.0 L (13.0-17.5) gm/dL Hct 39.4 (39.0-53.0) % MCV 96.8 (80.0-100.0) fL MCH 29.5 (25.0-35.0) pg MCHC 30.5 L (31.0-37.0) g/dL RDW 12.7 (11.5-15.5) % Plt Count 760 H (150-450) k/uL MPV 8.0 Neutrophils % 91 % Lymphocytes % 4 % Monocytes % 4 % Eosinophils % 0 % Basophils % 0 % Neutrophils # 20.8 H (1.3-7.7) k/uL Lymphocytes # 0.9 L (1.0-4.8) k/uL Monocytes # 0.8 (0-1.0) k/uL Eosinophils # 0.0 (0-0.7) k/uL Basophils # 0.0 (0-0.2) k/uL PT 10.5 (10.0-12.5) sec INR 0.9 (<1.2) APTT 26.7 (22.0-30.0) sec Sodium 133 L (137-145) mmol/L Potassium 4.3 (3.5-5.1) mmol/L Chloride 91 L (98-107) mmol/L Carbon Dioxide 32 H (22-30) mmol/L Anion Gap 10 mmol/L BUN 48 H (9-20) mg/dL Creatinine 0.89 (0.66-1.25) mg/dL Est GFR (CKD-EPI)AfAm >90 (>60 ml/min/1.73 sqM) Est GFR (CKD-EPI)NonAf >90 (>60 ml/min/1.73 sqM) Glucose 116 H (74-99) mg/dL Calcium 9.1 (8.4-10.2) mg/dL Magnesium 2.5 H (1.6-2.3) mg/dL Total Bilirubin 0.7 (0.2-1.3) mg/dL AST 29 (17-59) U/L ALT 53 H (4-49) U/L Alkaline Phosphatase 391 H (38-126) U/L Troponin I (0.000-0.034) ng/mL NT-Pro-B Natriuret Pep 538 pg/mL Total Protein 6.4 (6.3-8.2) g/dL Albumin 3.2 L (3.5-5.0) g/dL Influenza Type A (PCR) (Not Detectd) Influenza Type B (PCR) (Not Detectd) RSV (PCR) (Not Detectd) SARS-CoV-2 (PCR) (Not Detectd) 12/09/23 12/09/23 Range/Units 14:01 14:01 WBC (3.8-10.6) k/uL RBC (4.30-5.90) m/uL Hgb (13.0-17.5) gm/dL Hct (39.0-53.0) % MCV (80.0-100.0) fL MCH (25.0-35.0) pg MCHC (31.0-37.0) g/dL RDW (11.5-15.5) % Plt Count (150-450) k/uL MPV Neutrophils % % Lymphocytes % % Monocytes % % Eosinophils % % Basophils % % Neutrophils # (1.3-7.7) k/uL Lymphocytes # (1.0-4.8) k/uL Monocytes # (0-1.0) k/uL Eosinophils # (0-0.7) k/uL Basophils # (0-0.2) k/uL PT (10.0-12.5) sec INR (<1.2) APTT (22.0-30.0) sec Sodium (137-145) mmol/L Potassium (3.5-5.1) mmol/L Chloride (98-107) mmol/L Carbon Dioxide (22-30) mmol/L Anion Gap mmol/L BUN (9-20) mg/dL Creatinine (0.66-1.25) mg/dL Est GFR (CKD-EPI)AfAm (>60 ml/min/1.73 sqM) Est GFR (CKD-EPI)NonAf (>60 ml/min/1.73 sqM) Glucose (74-99) mg/dL Calcium (8.4-10.2) mg/dL Magnesium (1.6-2.3) mg/dL Total Bilirubin (0.2-1.3) mg/dL AST (17-59) U/L ALT (4-49) U/L Alkaline Phosphatase (38-126) U/L Troponin I <0.012 (0.000-0.034) ng/mL NT-Pro-B Natriuret Pep pg/mL Total Protein (6.3-8.2) g/dL Albumin (3.5-5.0) g/dL Influenza Type A (PCR) Not Detected (Not Detectd) Influenza Type B (PCR) Not Detected (Not Detectd) RSV (PCR) Not Detected (Not Detectd) SARS-CoV-2 (PCR) Not Detected (Not Detectd) - Radiology Data Radiology results: report reviewed (Chest x-ray CT does show a right lower lower lobe right middle lobe mass), image reviewed Critical Care Time Critical Care Time: Yes Total Critical Care Time: 31 Disposition Clinical Impression: Laryngeal mass, Pneumonia, Acute bacterial tracheitis, Dyspnea, Cancer associated pain, Esophageal cancer, Respiratory failure, Sepsis Disposition: ADMITTED IP TO THIS HOSP Condition: Serious Is patient prescribed a controlled substance at d/c from ED?: No Time of Disposition: 16:20
[2023-12-09] MEDS: ACETAMINOPHEN TAB 500 MG TAB PO STA (14:11)
[2023-12-09] MEDS: IBUPROFEN 600 MG TAB PO STA (14:13)
[2023-12-09] MEDS: SODIUM CHLORIDE 0.9% 1,000 ML IV STA (14:13)
[2023-12-09] MEDS: HYDROmorphone 1 MG/ML 1 ML SYRINGE IVP STA (14:14)
[2023-12-09] MEDS: SODIUM CHLORIDE 0.9% 500 ML 500 ML IV STA (14:15)
[2023-12-09 14:16] LABS: Basophils % (A) 0 %; Eosinophils % (A) 0 %; HCT 39.4 % (39.0-53.0); Lymphocytes # (A) 0.9 k/uL (1.0-4.8); Lymphocytes % (A) 4 %; MCH 29.5 pg (25.0-35.0); MCHC 30.5 g/dL (31.0-37.0); MCV 96.8 fL (80.0-100.0); Monocytes # (A) 0.8 k/uL (0-1.0); Monocytes % (A) 4 %; Neutrophils # (A) 20.8 k/uL (1.3-7.7); Neutrophils % (A) 91 %; Platelet Count 760 k/uL (150-450); RBC 4.07 m/uL (4.30-5.90); RDW 12.7 % (11.5-15.5); WBC 22.8 k/uL (3.8-10.6)
[2023-12-09 14:28] LABS: INR 0.9 (<1.2); Partial Thromboplastin Time 26.7 sec (22.0-30.0); Prothrombin Time 10.5 sec (10.0-12.5)
[2023-12-09 14:46] LABS: ALT 53 U/L (4-49); AST 29 U/L (17-59); African American GFR (CKD) >90 (>60 ml/min/1.73 sqM); Albumin 3.2 g/dL (3.5-5.0); Alkaline Phosphatase 391 U/L (38-126); Anion Gap 10 mmol/L; Blood Urea Nitrogen 48 mg/dL (9-20); Calcium 9.1 mg/dL (8.4-10.2); Carbon Dioxide 32 mmol/L (22-30); Chloride 91 mmol/L (98-107); Glucose 116 mg/dL (74-99); Magnesium 2.5 mg/dL (1.6-2.3); Non-African American GFR(CKD) >90 (>60 ml/min/1.73 sqM); Potassium 4.3 mmol/L (3.5-5.1); Sodium 133 mmol/L (137-145); Total Bilirubin 0.7 mg/dL (0.2-1.3); Total Protein 6.4 g/dL (6.3-8.2)
[2023-12-09 14:54] LABS: NT-Pro-B-Type Natriuretic Pept 538 pg/mL
[2023-12-09] MEDS: IPRATROPIUM-ALBUTEROL 3 ML NEB INHALATION STA (14:54)
--- NOTE | 2023-12-09 15:40 | XR ---
EXAMINATION TYPE: XR chest 2V DATE OF EXAM: 12/09/2023 2:29 PM CLINICAL INDICATION:Male, 58 years old with history of difficulty breathing; [facility] COMPARISON: Chest radiographs from 05/22/2023 TECHNIQUE: XR chest 2V Frontal and lateral views of the chest. FINDINGS: Lungs/Pleura: New right lower lung opacification. There is no evidence of pleural effusion, focal con solidation, or pneumothorax. Pulmonary vascularity: Unremarkable. Heart/mediastinum: Cardiomediastinal silhouette is unremarkable. Musculoskeletal: No acute osseous pathology. Other findings: Tracheostomy cannula projects over the trachea. IMPRESSION: Diffuse opacification of the right lower lung not not seen on prior imaging. Further evaluation with CT may be of benefit. Placement represent atelectasis and/or airspace consolidation. Mucous plugging is also within differential.
[2023-12-09] MEDS ORDERED: RX INFO: IV CONTRAST WAS GIVEN 1 EACH MISC MISCELLANE PRN (16:16)
[2023-12-09] MEDS ORDERED: PNEUMONIA PROTOCOL UTILIZED 1 EACH MISC PO PRN (16:17)
[2023-12-09] MEDS ORDERED: NALOXONE 0.4 MG/ML 1 ML VIAL IV PRN (16:17)
[2023-12-09] MEDS ORDERED: ONDANSETRON 4 MG/2 ML VIAL IVP PRN (16:17)
[2023-12-09] MEDS: AZITHROMYCIN 500 MG in SODIUM CHLORIDE 0.9% 250 ML IVPB STA (16:53)
--- NOTE | 2023-12-09 16:57 | CT ---
EXAMINATION TYPE: CT chest w con CT DLP: 282.7 mGycm, Automated exposure control for dose reduction was used. DATE OF EXAM: 12/09/2023 4:38 PM COMPARISON: Multiple prior cross-sectional imaging including PET/CT from 10/07/2023. CLINICAL INDICATION:Male, 58 years old with history of pneumo; PHH, Increased yellow/brown drainage f rom trach and PEG tube x 2 weeks. No shortness of breath, chest pain. TECHNIQUE: Multiple axial images were obtained through the chest. Sagittal and coronal reformats were created for review. Contrast used:100 mL of Isovue 300 with IV Contrast (None if empty) Oral contrast used: (None if empty) FINDINGS: LUNGS/ PLEURA: Paraseptal and centrilobular emphysematous changes of the lungs are identified. Small right pleural effusion is identified. Large area of lobulated consolidation involving the right middle lung as well as the inferior aspect of the right upper lobe and anterior aspect of the right lower lobe. There is heterogenous internal m aterial present within this region with foci of gas as well as areas measuring fluid density. Of note , this area didn't correspond to a focus of increased FDG on the PET/CT from September but is significa ntly increased in size. AIRWAY: PEG tube in place and terminating above the level the mansi. HEART: Size within normal limits. MEDIASTINUM: No gross evidence of adenopathy. VASCULATURE: No aortic aneurysm. MUSCULOSKELETAL: Mild disc degeneration changes are present throughout the thoracolumbar spine. SOFT TISSUES/LYMPH NODES: Unremarkable. LOWER NECK: No significant findings. UPPER ABDOMEN: No significant findings. IMPRESSION: 1. Lobular heterogenous mass with internal cystic and necrotic components centered in the right middl e lobe, in the region of prior FDG avid lung nodule. This is favored to represent interval progressio n of the patient's known malignant disease, with superimposed infection in the region not excluded. 2. Small right pleural effusion. 3. Emphysematous changes of the lungs.
[2023-12-09] MEDS: HYDROmorphone 1 MG/ML 1 ML SYRINGE IVP PRN (17:15)
[2023-12-09] MEDS: SODIUM CHLORIDE 0.9% 1,000 ML IV SCH (18:29)
[2023-12-10] MEDS: IBUPROFEN 400 MG TAB PO PRN (00:34)
--- NOTE | 2023-12-10 08:01 | XR ---
EXAMINATION TYPE: XR chest 1V DATE OF EXAM: 12/09/2023 COMPARISON: 12/09/2023 INDICATION: Pneumonia TECHNIQUE: Single frontal view of the chest is obtained. FINDINGS: The heart size is normal. The pulmonary vasculature is normal. There is opacification of the right lower lung field. Small effusions present. Findings are stable fr om comparison. Tracheostomy tube is in the midline. IMPRESSION: 1. No acute pulmonary process.
[2023-12-10] MEDS: IPRATROPIUM-ALBUTEROL 3 ML NEB INHALATION PRN (08:04)
[2023-12-10] MEDS: PANTOPRAZOLE 40 MG/10 ML VIAL IVP SCH (10:11)
[2023-12-10 11:08] LABS: Basophils # (A) 0.07 X 10*3/uL (0.00-0.10); Basophils % (A) 0.3 %; Eosinophils # (A) 0.02 X 10*3/uL (0.04-0.35); Eosinophils % (A) 0.1 %; HCT 37.2 % (39.6-50.0); HGB 11.4 g/dL (13.0-17.0); Lymphocytes # (A) 0.86 X 10*3/uL (0.90-5.00); Lymphocytes % (A) 3.9 %; MCH 29.5 pg (27.0-32.0); MCHC 30.6 g/dL (32.0-37.0); MCV 96.4 FL (80.0-97.0); Monocytes # (A) 1.31 X 10*3/uL (0.20-1.00); Monocytes % (A) 5.9 %; NRBC Per 100 WBC 0 X 10*3/uL (0.00-0.01); Neutrophils # (A) 19.44 X 10*3/uL (1.80-7.70); Neutrophils % (A) 87.8 %; Platelet Count 655 X 10*3/uL (140-440); RBC 3.86 X 10*6/uL (4.40-5.60); RDW 13.9 % (11.5-14.5); WBC 22.14 X 10*3/uL (4.50-10.00)
[2023-12-10 11:25] LABS: ALT 34 U/L (10-49); AST 17 U/L (14-35); Albumin/Globulin Ratio 0.97 Ratio (1.60-3.17); Alkaline Phosphatase 301 U/L (41-126); BUN/Creat Ratio 40.75 Ratio (12.00-20.00); Blood Urea Nitrogen 32.6 mg/dL (9.0-27.0); Carbon Dioxide 28.7 mmol/L (21.6-31.8); Chloride 97 mmol/L (96-109); Globulin 3.1 g/dL (1.6-3.3); Glucose 91 mg/dL (70-110); Magnesium 2.7 mg/dL (1.5-2.4); Phosphorus 3.6 mg/dL (2.4-5.1); Potassium 4.6 mmol/L (3.5-5.5); Sodium 140 mmol/L (135-145); Total Bilirubin 0.4 mg/dL (0.3-1.2); Total Protein 6.1 g/dL (6.2-8.2)
[2023-12-10] MEDS: AZITHROMYCIN 500 MG in SODIUM CHLORIDE 0.9% 250 ML IVPB SCH (11:30)
[2023-12-10] MEDS ORDERED: NON FORMULARY DRUG (Omeprazole 20 MG Capsule.Dr) PO PRN (12:05)
[2023-12-10] MEDS ORDERED: HYDROcodone/APAP 5-325MG 1 EACH TAB PO PRN (12:06)
[2023-12-10] MEDS ORDERED: HYDROmorphone 0.5 MG/0.5 ML SYRINGE IVP PRN (12:06)
--- NOTE | 2023-12-10 12:54 | P.CNPUL ---
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 PET scan from September 2023 revealed persistent uptake in the posterior lateral right cord level compatible with neoplasm, there was a new lung nodule identified with elevated SUV suspicious for neoplasm in the right lower lobe. He is being followed by both medical and radiation oncology. He presented here to the emergency room yesterday with complaints of increasing shortness of breath, chronic back pain and generalized body aches and pains. X-ray reveals opacification of the right lower lobe. CT scan of the chest reveals lobular heterogenous mass with internal cystic and necrotic components centered in the right middle lobe. This is favored to represent interval progression the patient's known malignancy with superimposed infection not excluded. And emphysema changes noted. Small right pleural effusion. White count 22.1. Hemoglobin 11.4. Platelets 655. Sodium 140. Potassium 4.6. Bicarb 29. BUN 33. Creatinine 0.8. Viral screen negative. He is seen today in consultation on the regular medical floor. He is sitting up in bed. Awake and alert in no acute distress. He is maintaining O2 saturations in the mid 90s on 28% FiO2 via trach collar. He is afebrile. Review of Systems REVIEW OF SYSTEMS: CONSTITUTIONAL: Denies any recent significant weight loss or weight gain. EYES: Denies change in vision. EARS, NOSE, MOUTH, THROAT: Denies headaches, denies sore throat. CARDIOVASCULAR: Denies chest pain, palpitations or syncopal episodes. RESPIRATORY: Positive for shortness of breath, cough, congestion no hemoptysis. GASTROINTESTINAL: Denies change in appetite, denies abdominal pain GENITOURINARY: Denies hematuria, denies infections. MUSKULOSKELETAL: Positive for back pain, generalized aches and pains. INTEGUMENTARY: Denies rash, denies eczema. NEUROLOGICAL: Denies recent memory loss, no recent seizure activity. PSYCHIATRIC: Denies anxiety, denies depression. HEMATOLOGIC/LYMPHATIC: Denies anemia, denies enlarged lymph nodes. Past Medical History Past Medical History: Cancer, COPD, Syncope, Thyroid Disorder Additional Past Medical History / Comment(s): Graves disease, diverticulosis, esophageal cancer with radiation and chemolast 08/05 at [facility] History of Any Multi-Drug Resistant Organisms: None Reported Past Surgical History: Tonsillectomy Additional Past Surgical History / Comment(s): vasectomy, biopsy of throat, trach Past Anesthesia/Blood Transfusion Reactions: No Reported Reaction Past Psychological History: No Psychological Hx Reported Smoking Status: Current every day smoker Past Alcohol Use History: None Reported Past Drug Use History: None Reported - Past Family History Father History Unknown: Yes Medications and Allergies Home Medications Medication Instructions Recorded Confirmed Type Omeprazole [PriLOSEC] 20 mg PO BID PRN 05/20/23 12/09/23 History Acetaminophen Tab [Tylenol Tab] 500 mg PO Q6H PRN 12/09/23 12/09/23 History Ibuprofen [Motrin] 800 mg PO Q8H PRN 12/09/23 12/09/23 History Allergies Allergy/AdvReac Type Severity Reaction Status Date / Time No Known Allergies Allergy Verified 12/09/23 16:16 Physical Exam Vitals: Vital Signs Temp Pulse Pulse Resp BP BP Pulse Ox 12/10/23 08:27 94 L 12/10/23 08:20 100 12/10/23 08:05 101 H 12/10/23 07:20 98.6 F 103 H 16 88/52 90 L 12/10/23 03:14 16 12/10/23 02:00 97.8 F 111 H 16 75/45 98 12/09/23 22:25 99.4 F 56 L 16 114/70 94 L 12/09/23 21:57 98.2 F 68 20 96/52 98 12/09/23 19:00 58 L 20 97 12/09/23 18:26 12/09/23 17:20 72 18 98/53 95 12/09/23 15:18 98.1 F 106 H 18 86/50 99 12/09/23 15:10 84 12/09/23 14:55 86 12/09/23 12:51 98.6 F 86 20 98/64 98 FiO2 12/10/23 08:27 28 12/10/23 08:20 12/10/23 08:05 12/10/23 07:20 12/10/23 03:14 12/10/23 02:00 12/09/23 22:25 12/09/23 21:57 12/09/23 19:00 12/09/23 18:26 28 12/09/23 17:20 12/09/23 15:18 12/09/23 15:10 12/09/23 14:55 12/09/23 12:51 Intake and Output 12/09/23 12/10/23 12/10/23 22:59 06:59 14:59 Intake Total 240 Balance 240 Intake: Oral 240 Other: Voiding Method Toilet Weight 58.967 kg 58.967 kg GENERAL EXAM: Alert, 58-year-old male patient, on 28% FiO2 via trach collar, comfortable in no apparent distress. HEAD: Normocephalic. EYES: Normal reaction of pupils, equal size. NOSE: Clear with pink turbinates. THROAT: No erythema or exudates. NECK: Tracheostomy tube secured in place. No masses, no JVD. CHEST: No chest wall deformity. LUNGS: Equal air entry with crackles of the right lung base. CVS: S1 and S2 normal with no audible murmur, regular rhythm. ABDOMEN: No hepatosplenomegaly, normal bowel sounds, no guarding or rigidity. SPINE: No scoliosis or deformity SKIN: No rashes CENTRAL NERVOUS SYSTEM: No focal deficits, tone is normal in all 4 extremities. EXTREMITIES: There is no peripheral edema. No clubbing, no cyanosis. Peripheral pulses are intact. Results - Laboratory Findings CBC and BMP: 12/10/23 07:41 12/10/23 07:41 PT/INR, D-dimer PT 10.5 sec (10.0-12.5) 12/09/23 14:01 INR 0.9 (<1.2) 12/09/23 14:01 Abnormal lab findings: Abnormal Labs 12/09/23 12/09/23 12/10/23 14:01 14:01 07:41 WBC 22.8 H 22.14 H RBC 4.07 L 3.86 L Hgb 12.0 L 11.4 L Hct 37.2 L MCHC 30.5 L 30.6 L Plt Count 760 H 655 H Immature Gran # 0.44 H Neutrophils # 20.8 H 19.44 H Lymphocytes # 0.9 L 0.86 L Monocytes # 1.31 H Eosinophils # 0.02 L Sodium 133 L Chloride 91 L Carbon Dioxide 32 H Anion Gap BUN 48 H BUN/Creatinine Ratio Glucose 116 H Magnesium 2.5 H ALT 53 H Alkaline Phosphatase 391 H Total Protein Albumin 3.2 L Albumin/Globulin Ratio 12/10/23 07:41 WBC RBC Hgb Hct MCHC Plt Count Immature Gran # Neutrophils # Lymphocytes # Monocytes # Eosinophils # Sodium Chloride Carbon Dioxide Anion Gap 14.30 H BUN 32.6 H BUN/Creatinine Ratio 40.75 H Glucose Magnesium 2.7 H ALT Alkaline Phosphatase 301 H Total Protein 6.1 L Albumin 3.0 L Albumin/Globulin Ratio 0.97 L - Diagnostic Findings Chest x-ray: image reviewed CT scan - chest: image reviewed Assessment and Plan Assessment: Acute hypoxic respiratory failure secondary to right lower lung opacification and possible postobstructive pneumonia. CT scan of the chest reveals lobular heterogenous mass with internal cystic and necrotic components centered in the right middle lobe. This is favored to represent interval progression the patient's known malignancy with superimposed infection not excluded. Emphysema changes noted. Small right pleural effusion History of laryngeal cancer status post tracheostomy tube, following with medical and radiation oncology. PET scan from September 2023 revealed persistent uptake in the posterior lateral right cord level compatible with neoplasm, there was a new lung nodule identified with elevated SUV suspicious for neoplasm in the right lower lobe Dysphagia secondary to above status post PEG tube placement in May 2023 Hypothyroidism Graves' disease Chronic and ongoing tobacco dependence Obstructive pulmonary disease Plan: The patient was seen and evaluated Chest x-ray, CT scan of the chest, labs and medications reviewed Plan for bronchoscopy with BAL and possible biopsies today Continue to titrate the FiO2 as tolerated Continue to antibiotics for now Check a procalcitonin Continue normal saline at 75 MLS per hour Continue bronchodilators and steroids We will continue to follow and make further recommendations based on his clinical status I have personally seen and examined the patient, performed the documentation and the assessment and plan as written. Number of minutes spent on the visit: 20.
[2023-12-10] MEDS ORDERED: MIDAZOLAM 2 MG/2 ML VIAL ONE (13:00)
[2023-12-10] MEDS ORDERED: PROPOFOL 10 MG/ML 20 ML VIAL IV ONE (13:00)
[2023-12-10] MEDS: IV FLUID CONTINUATION 1,000 ML IV ONE ×2 (13:09→13:19)
[2023-12-10] MEDS: PIPERACILLIN-TAZOBACTAM 3.375 GM in SODIUM CHLORIDE 0.9% 100 ML IVPB STA (14:33)
[2023-12-10] MEDS: methylPREDNISolone SOD SUCCI 125 MG/2 ML VIAL IV SCH (14:33)
[2023-12-10] MEDS: IPRATROPIUM-ALBUTEROL 3 ML NEB INHALATION SCH (14:34)
[2023-12-10] MEDS: ACETAMINOPHEN IV (For NPO) 1,000 MG in EMPTY BAG 1 BAG IVPB PRN (14:34)
[2023-12-10] MEDS: PIPERACILLIN-TAZOBACTAM 3.375 GM in SODIUM CHLORIDE 0.9% 100 ML IVPB SCH (14:47)
[2023-12-10] MEDS: IOPAMIDOL CONTRAST (ORAL USE) VIAL PO PRN (16:09)
--- NOTE | 2023-12-10 19:05 | CT ---
EXAMINATION TYPE: CT abdomen pelvis wo con CT DLP: 419.2 mGycm, Automated exposure control for dose reduction was used. DATE OF EXAM: 12/10/2023 6:05 PM COMPARISON: CT chest 12/09/2023, head CT 10/07/2023 CLINICAL INDICATION:Male, 58 years old with history of pna, trach; malignant neoplasm supraglottis TECHNIQUE: Axial CT of the abdomen and pelvis. Sagittal and coronal reformats were created on a [employer] workstation. Contrast used: mL of , (none if empty) Oral contrast used: with Oral Contrast (none if empty) FINDINGS: LOWER CHEST: Moderate pulmonary emphysematous changes. Loculated right pleural effusion appears essen tially stable. Adjacent compressive atelectasis. Redemonstration of a large mass centered in the righ t middle lobe consistent with malignant neoplasm. Nonunited right posterolateral seventh rib fracture . No destructive bone lesion or acute fracture seen. Visualized central airways are patent. Tracheostomy appears in good position. Mildly enlarged heart with moderate aortic, aortic valve, and coronary artery calcifications. Overall no significant change from yesterday's CT examination. ABDOMEN LIVER: The right lung mass abuts a long segment of pleura at the right lung base, however no definite suggestion of invasion through the diaphragm or involvement of the liver. No liver mass identified i n the limits of unenhanced CT. GALLBLADDER AND BILE DUCTS: Unremarkable gallbladder. No biliary ductal dilatation. PANCREAS: Unremarkable. SPLEEN: Unremarkable. ADRENAL GLANDS: Appear somewhat thickened without definite mass.. KIDNEYS AND URETERS: Unremarkable unenhanced kidneys. No calculi or hydronephrosis. A 4.9 cm exophyti c right renal cyst. PELVIS BLADDER: Unremarkable REPRODUCTIVE: Prostate appears prominent measuring 5 cm transverse and 3.2 cm AP. Some parenchymal ca lcifications. ABDOMEN & PELVIS STOMACH AND BOWEL: PEG tube in place with its tip and balloon in the distal gastric body. There is co ntrast seen traversing the stomach and small bowel loops without evidence of obstruction. Thickened a ppearance of the proximal gastric wall. Appendix is not identified with certainty, however there is n o inflammatory process seen in the RLQ. Moderate stool throughout the colon without ingestion of an a cute abnormality. There are several diverticula in the distal colon without definite evidence of dive rticulitis. Moderate to large amount of stool in the distal sigmoid and rectum, correlate for constip ation or impaction. Some eccentric rectal wall thickening towards the right in the distal rectum may be present. PERITONEUM/RETROPERITONEUM: No evidence of pneumoperitoneum or free fluid. Mild mesenteric edema. VASCULATURE: Moderate to severe atherosclerotic calcifications are present throughout the abdominal a marianne and its branches. No evidence of aortic aneurysm. LYMPH NODES: No enlarged nodes identified by CT criteria. SOFT TISSUE/ABDOMINAL WALL: No acute finding. MUSCULOSKELETAL: No acute osseous abnormalities. Mild/moderate disc degeneration changes are present throughout the thoracolumbar spine, with mild/moderate degenerative change of the SI joints and hips. IMPRESSION: 1. Findings in the inferior chest redemonstrated, including large right middle lobe neoplastic mass and right pleural effusion, without significant change from yesterday's exam. 2. No clear evidence of mass or metastatic adenopathy in the abdomen or pelvis, in the limits of une nhanced technique. 3. Questionable thickening of the proximal gastric wall, and distal rectal wall, versus incomplete d istention. This could be correlated with endoscopy as clinically warranted.
--- NOTE | 2023-12-10 19:46 | P.CONS ---
History of Present Illness - Reason for Consult Consult date: 12/10/23 head neck cancer Requesting physician: Niraj Pelaez - Chief Complaint SOB, fever - History of Present Illness Patient is a 58 year old male with a significant history of SCC of supraglottis. He is a patient of Dr. Moreira. He initially presented to his PCP, with sore throat and hoarseness. The symptoms had been present to was somewhat minor degree for about 3-4 years, but had become much more prominent since 10/05, and subsequently progressive. CT of the neck on 03/09/23 showed a 2.3 cm supraglottic mass on the right, with a right neck node measuring 3.1 cm at level III. Patient had a PET scan on 03/25/23 which showed uptake in the primary lesion, as well as uptake in a level IIA and a level III node on the right. The patient was seen by ENT, with recommended a biopsy. The patient did not return to ENT initially as he did not think he needed a biopsy to start treatment. He was seen by radiation oncology initially on 04/13/23 and was referred back to ENT. 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 Malignancy was present on biopsy from the right supraglottis and the right hypopharynx. Tumor was p16 negative. The patient was then referred to medical oncology for further evaluation, for concurrent chemoradiation. The patient started chemoradiation with weekly cisplatin. After the first chemotherapy treatment on 05/13/23, he was admitted to the hospital because of progressive difficulty in breathing. He had to have a tracheostomy placed, and also had a PEG tube placed because he subsequently failed a swallow test. He completed 6 wkly Cisplatin cycles on 07/05/23, and subsequently radiation in the first week of 08/05. PET scan was ordered by radiation oncology. It appears to be some uptake in the right vocal cord, and also in an opacity in the right lung. Patient was advised that these could be nonspecific and represent areas of inflammation. We will await evaluation and review of the scan by radiation oncology, plan was to f/u in [address] scans if PET scan findings were not not found to be indicative of residual or new malignancy on upcoming evaluation by radiation oncology and ENT. Patient followed up with ENT and had biopsy of right vocal cord lesion on 11/11/2023 which was positive for malignancy. He was recommended for laryngectomy, however patient decided that he did not want to go through with surgery. He also states that he did not follow-up with radiation oncology for recommended SBRT, as he felt like radiation did not work previously for his throat lesions and did not want to undergo the same for his lung. Patient has upcoming follow-up with Dr. Moreira on 01/09. Patient presented to the emergency room with complaints of shortness of breath, fever and right-sided chest pain and throat pain. Patient states he has been having increased sputum production and had a fever of 101.0. Denies any recent hemoptysis. Upon admission chest x-ray revealed diffuse opacification of the right lower lung. CT chest with contrast showed lobular heterogeneous mass with internal cystic and necrotic component centered in the right middle lobe, in the region of prior FDG avid lung nodule. Favored to represent interval progression of the patient's known malignant disease, with superimposed infection not excluded. Small right pleural effusion. And emphysematous changes of the lungs. IV abx started. Patient underwent bronchoscopy with BAL today with Dr. Us with findings of mucous plug in the right middle lobe and right lower lobe bronchus. Bronchial washing have been sent for cytology. Leukocytosis noted at 22.1, hemoglobin 11.4, platelets 655,000. Bilirubin 0.4, AST 17, ALT 34, ALP 301. Troponin negative. BNP 538. Tmax 99.4. SpO2 96% on trach collar at 5 L. Review of Systems 10 point ROS is negative except as stated in the HPI Past Medical History Past Medical History: Cancer, COPD, Syncope, Thyroid Disorder Additional Past Medical History / Comment(s): Graves disease, diverticulosis, esophageal cancer with radiation and chemolast 08/05 at [facility] History of Any Multi-Drug Resistant Organisms: None Reported Past Surgical History: Tonsillectomy Additional Past Surgical History / Comment(s): vasectomy, biopsy of throat, trach Past Anesthesia/Blood Transfusion Reactions: No Reported Reaction Past Psychological History: No Psychological Hx Reported Smoking Status: Current every day smoker Past Alcohol Use History: None Reported Past Drug Use History: None Reported - Past Family History Father History Unknown: Yes Medications and Allergies Home Medications Medication Instructions Recorded Confirmed Type Omeprazole [PriLOSEC] 20 mg PO BID PRN 05/20/23 12/09/23 History Acetaminophen Tab [Tylenol Tab] 500 mg PO Q6H PRN 12/09/23 12/09/23 History Ibuprofen [Motrin] 800 mg PO Q8H PRN 12/09/23 12/09/23 History Allergies Allergy/AdvReac Type Severity Reaction Status Date / Time No Known Allergies Allergy Verified 12/09/23 16:16 Physical Exam Vitals: Vital Signs Temp Pulse Pulse Resp BP BP Pulse Ox 12/10/23 12:38 99.2 F 99 16 92/52 96 12/10/23 08:27 94 L 12/10/23 08:20 100 12/10/23 08:05 101 H 12/10/23 07:20 98.6 F 103 H 16 88/52 90 L 12/10/23 03:14 16 12/10/23 02:00 97.8 F 111 H 16 75/45 98 12/09/23 22:25 99.4 F 56 L 16 114/70 94 L 12/09/23 21:57 98.2 F 68 20 96/52 98 12/09/23 19:00 58 L 20 97 12/09/23 18:26 12/09/23 17:20 72 18 98/53 95 12/09/23 15:18 98.1 F 106 H 18 86/50 99 12/09/23 15:10 84 12/09/23 14:55 86 FiO2 12/10/23 12:38 12/10/23 08:27 28 12/10/23 08:20 12/10/23 08:05 12/10/23 07:20 12/10/23 03:14 12/10/23 02:00 12/09/23 22:25 12/09/23 21:57 12/09/23 19:00 12/09/23 18:26 28 12/09/23 17:20 12/09/23 15:18 12/09/23 15:10 12/09/23 14:55 Intake and Output 12/09/23 12/10/23 12/10/23 22:59 06:59 14:59 Intake Total 240 Balance 240 Intake: Oral 240 Other: Voiding Method Toilet # Voids 2 Weight 58.967 kg 58.967 kg - Constitutional General appearance: no acute distress, thin - EENT Eyes: anicteric sclerae, EOMI ENT: hearing grossly normal - Respiratory Respiratory: right: diminished, rhonchi - Cardiovascular Rhythm: regular Heart sounds: normal: S1, S2 - Gastrointestinal General gastrointestinal: soft, no tenderness - Integumentary Integumentary: no cyanotic - Neurologic no focal deficits - Musculoskeletal Musculoskeletal: strength equal bilaterally - Psychiatric Psychiatric: A&O x's 3 Results CBC & Chem 7: 12/10/23 07:41 12/10/23 07:41 Labs: Abnormal Lab Results - Last 24 Hours (Table) 12/09/23 12/09/23 12/10/23 Range/Units 14:01 14:01 07:41 WBC 22.8 H 22.14 H (3.8-10.6) k/uL RBC 4.07 L 3.86 L (4.30-5.90) m/uL Hgb 12.0 L 11.4 L (13.0-17.5) gm/dL Hct 37.2 L (39.6-50.0) % MCHC 30.5 L 30.6 L (31.0-37.0) g/dL Plt Count 760 H 655 H (150-450) k/uL Immature Gran # 0.44 H (0.00-0.04) X 10*3/uL Neutrophils # 20.8 H 19.44 H (1.3-7.7) k/uL Lymphocytes # 0.9 L 0.86 L (1.0-4.8) k/uL Monocytes # 1.31 H (0.20-1.00) X 10*3/uL Eosinophils # 0.02 L (0.04-0.35) X 10*3/uL Sodium 133 L (137-145) mmol/L Chloride 91 L (98-107) mmol/L Carbon Dioxide 32 H (22-30) mmol/L Anion Gap (4.00-12.00) mmol/L BUN 48 H (9-20) mg/dL BUN/Creatinine Ratio (12.00-20.00) Ratio Glucose 116 H (74-99) mg/dL Magnesium 2.5 H (1.6-2.3) mg/dL ALT 53 H (4-49) U/L Alkaline Phosphatase 391 H (38-126) U/L Total Protein (6.2-8.2) g/dL Albumin 3.2 L (3.5-5.0) g/dL Albumin/Globulin Ratio (1.60-3.17) Ratio 12/10/23 Range/Units 07:41 WBC (3.8-10.6) k/uL RBC (4.30-5.90) m/uL Hgb (13.0-17.5) gm/dL Hct (39.6-50.0) % MCHC (31.0-37.0) g/dL Plt Count (150-450) k/uL Immature Gran # (0.00-0.04) X 10*3/uL Neutrophils # (1.3-7.7) k/uL Lymphocytes # (1.0-4.8) k/uL Monocytes # (0.20-1.00) X 10*3/uL Eosinophils # (0.04-0.35) X 10*3/uL Sodium (137-145) mmol/L Chloride (98-107) mmol/L Carbon Dioxide (22-30) mmol/L Anion Gap 14.30 H (4.00-12.00) mmol/L BUN 32.6 H (9-20) mg/dL BUN/Creatinine Ratio 40.75 H (12.00-20.00) Ratio Glucose (74-99) mg/dL Magnesium 2.7 H (1.6-2.3) mg/dL ALT (4-49) U/L Alkaline Phosphatase 301 H (38-126) U/L Total Protein 6.1 L (6.2-8.2) g/dL Albumin 3.0 L (3.5-5.0) g/dL Albumin/Globulin Ratio 0.97 L (1.60-3.17) Ratio Chest x-ray: report reviewed CT scan - chest: report reviewed Assessment and Plan (1) Squamous cell carcinoma of head and neck Current Visit: Yes Status: Acute Priority: High Code(s): C44.42 - SQUAMOUS CELL CARCINOMA OF SKIN OF SCALP AND NECK SNOMED Code(s): 861901473 (2) Cancer associated pain Current Visit: Yes Status: Acute Priority: High Code(s): G89.3 - NEOPLASM RELATED PAIN (ACUTE) (CHRONIC) SNOMED Code(s): 47017250481700 (3) Pneumonia Current Visit: Yes Status: Acute Priority: High Code(s): J18.9 - PNEUMONIA, UNSPECIFIED ORGANISM SNOMED Code(s): 126409170 Plan: Pneumonia: Presented to the with complaints of shortness of breath, fever and right-sided chest pain and throat pain. Patient states he has been having increased sputum production and had a fever of 101.0. Denies any recent hemoptysis. -Upon admission chest x-ray revealed diffuse opacification of the right lower lung. CT chest with contrast showed lobular heterogeneous mass with internal cystic and necrotic component centered in the right middle lobe, in the region o f prior FDG avid lung nodule. Favored to represent interval progression of the patient's known malignant disease, with superimposed infection not excluded. Small right pleural effusion. And emphysematous changes of the lungs. IV abx -Patient underwent bronchoscopy with BAL today with Dr. Us with findings of mucous plug in the right middle lobe and right lower lobe bronchus. Bronchial washing have been sent for cytology. -IV abx started. Blood and sputum cultures ordered. Tmax 99.4. SpO2 96% on trach collar at 5 L SCC of supraglottis: -Full oncological history in [facility] -Completed 6 weekly Cisplatin cycles on 07/05/23, and subsequently radiation in the first week of 08/05. PET scan was ordered by radiation oncology. It appears to be some uptake in the right vocal cord, and also in an opacity in the right lung. Patient was advised that these could be nonspecific and represent areas of inflammation. We will await evaluation and review of the scan by radiation oncology, plan was to f/u in [address] scans if PET scan findings were not not found to be indicative of residual or new malignancy on upcoming evaluation by radiation oncology and ENT. Patient followed up with ENT and had biopsy of right vocal cord lesion on 11/11/2023 which was positive for malignancy. He was recommended for laryngectomy, however patient decided that he did not want to go through with surgery. He also states that he did not follow-up with radiation oncology for recommended SBRT, as he felt like radiation did not work previously for his throat lesions and did not want to undergo the same for his lung. -Patient states if lung findings on CT/PET is negative for malignancy on cyt ology he would be amendable for surgery and will f/u with ENT for further evaluation -Patient has upcoming follow-up with Dr. Moreira on 01/09. Will further discuss cytology results and goals of care and treatment recommendations Dr attests: I have performed H&P and developed impression and plan of care for patient, discussed with dictator. I agree with dictated note, documented as a scribe
--- NOTE | 2023-12-10 20:05 | OP ---
OPERATIVE REPORT DATE OF SERVICE : PROCEDURES PERFORMED: Bronchoscopy and suctioning of mucus plugs from the right lower lobe bronchus and right middle lobe bronchus, and bronchoalveolar lavage of the right middle lobe and right lower lobe. PREOPERATIVE DIAGNOSES: Right lower lobe and right middle lobe collapse with consolidation. POSTOPERATIVE DIAGNOSES: Right lower lobe and right middle lobe collapse secondary to mucus plugging involving the right middle lobe bronchus and right lower lobe bronchus and tracheomalacia. ANESTHESIA USED: IV conscious sedation. DESCRIPTION OF PROCEDURE: The patient was brought into the bronchoscopy suite, prepared according to the bronchoscopy protocol. O2 was applied via an adapter applied to the tracheostomy tube and this was connected to a ventilator by [employer]. After adequate IV conscious sedation, and after close monitoring of his O2 saturation continuously, blood pressure was intermittently monitored, cardiac rhythm was continuously monitored, the bronchoscope was advanced through the adapter on the tracheostomy and advanced down further to the distal end of the tracheostomy tube. Significant purulent secretions noted to be in the trachea and in the mansi area. These were suctioned. Then, a thorough examination was done of the right upper lobe, right middle lobe, right lower lobe, left upper lobe lingula and left lower lobe. There was evidence of mucus plugs and thick secretions noted in the right middle lobe bronchus and in the right lower lobe bronchus almost near occluding the different segments of the right middle lobe and right lower lobe. These were suctioned until completely cleared. Fluid was obtained, sent for different diagnostic studies. As I examined the left side, there was hardly any secretions on the left side. The right upper lobe itself also was suctioned and minimal secretions were cleared. The trachea was noted to have the appearance of tracheomalacia, the procedure was well tolerated, no complications, fluid was sent for different diagnostic studies. MMODL / IJN: [id number] /
--- NOTE | 2023-12-10 22:59 | HP ---
HISTORY AND PHYSICAL CHIEF COMPLAINT: Right-sided chest pain as well as excessive discharge from the throat. HISTORY OF PRESENT ILLNESS: This is a 58-year-old gentleman, who has a past medical history of laryngeal cancer with tracheostomy, is complaining of multiple complex issues including shortness of breath, right-sided chest pain and excessive discharge. The patient is being admitted for further evaluation and treatment. Pneumonia was suspected with some effusion on the right side. There is no history of any fever, rigors, or chills. PAST MEDICAL HISTORY: History of COPD, Graves disease, laryngeal cancer. Rest of the history and rest of the chart is also reviewed. HOME MEDICATIONS: Reviewed include Motrin. Dose and rest of medications noted. ALLERGIES: None. FAMILY HISTORY: No history of heart disease or strokes in the family. SOCIAL HISTORY: Continued smoking. REVIEW OF SYSTEMS: Fourteen-point review is negative except as mentioned earlier. PHYSICAL EXAMINATION: VITAL SIGNS: Pulse is 103, blood pressure 88/52, respirations 16. HEENT: Conjunctivae normal. NECK: Tracheostomy. CARDIOVASCULAR: S1, S2. RESPIRATIONS: A few scattered rhonchi and crackles. ABDOMEN: Soft. LEGS: No edema. NERVOUS SYSTEM: Diffusely weak. SKIN: No ulcer, rash, bleeding. JOINTS: No active deforming arthropathy. LABORATORY DATA: WBC 22.4. ASSESSMENT: 1. Chronic obstructive pulmonary disease acute exacerbation with possible right lower lobe pneumonia, consider aspiration. 2. Elevated WBC. 3. Excessive discharge from the neck. 4. Right-sided chest and neck pain for evaluation. 5. Diabetes mellitus, type 2. 6. History of laryngeal cancer. 7. Chronic obstructive pulmonary disease. 8. History of Graves disease. 9. Esophageal cancer with radiation chemo at [facility]. 10.History of nicotine dependence. RECOMMENDATIONS AND DISCUSSION: This is a 58-year-old gentleman, who presented with multiple complex medical issues, we will monitor the patient closely. I will recommend to continue the current medications and institute intensive bronchodilators, empiric antibiotics. Infectious Disease, Pulmonary, Hematology and Oncology consultation. Tube feeds. Aspiration precautions. Prognosis guarded. Further recommendations to follow. See orders for further details. MMODL / IJN: [id number] /
--- NOTE | 2023-12-10 23:43 | P.CONS ---
History of Present Illness - Reason for Consult Consult date: 12/10/23 Pneumonia Requesting physician: Ronny Johns - Chief Complaint Shortness of breath and cough x few days - History of Present Illness Patient is a 58-year-old male past medical history significant for COPD syncope history of laryngeal cancer with radiation and chemotherapy and the patient did have tracheostomy and PEG tube insertion presenting to the ER for evaluation of increasing shortness of breath generalized bodyaches and the patient mention he did have a fever patient also complaining of increasing cough and purulent sputum production no hemoptysis patient denies having any nausea no vomiting no abdominal pain no diarrhea no urinary symptoms on presentation to the hospital patient did have a temperature of 98.6 with 1 low-grade fever patient was not tachycardic hypotensive or hypoxic he did have white count of 22.8 with a left shift creatinine was normal ALT mildly elevated influenza RSV COVID testing was negative patient did have a chest x-ray followed by CT of the chest lobular heterogeneous mass with internal cystic and necrotic components centered in the right middle lobe interval progression of the patient on malignant disease with superimposed infection not excluded patient was started on Zithromax and Zosyn infectious disease was consulted for further management of antibiotic therapy Review of Systems Positive point and negatives has been mentioned in the HPI, complete review of systems was performed and all other systems are negative Past Medical History Past Medical History: Cancer, COPD, Syncope, Thyroid Disorder Additional Past Medical History / Comment(s): Graves disease, diverticulosis, esophageal cancer with radiation and chemolast 08/05 at [facility] History of Any Multi-Drug Resistant Organisms: None Reported Past Surgical History: Tonsillectomy Additional Past Surgical History / Comment(s): vasectomy, biopsy of throat, trach Past Anesthesia/Blood Transfusion Reactions: No Reported Reaction Past Psychological History: No Psychological Hx Reported Smoking Status: Current every day smoker Past Alcohol Use History: None Reported Past Drug Use History: None Reported - Past Family History Father History Unknown: Yes Medications and Allergies Home Medications Medication Instructions Recorded Confirmed Type Omeprazole [PriLOSEC] 20 mg PO BID PRN 05/20/23 12/09/23 History Acetaminophen Tab [Tylenol] 500 mg PO Q6H PRN 12/09/23 12/09/23 History Ibuprofen [Motrin] 800 mg PO Q8H PRN 12/09/23 12/09/23 History Albuterol Sulfate/Budesonide 1 puff INHALATION BID #10.7 gram 12/17/23 Rx [Airsupra 90-80 Mcg Inhaler] Amoxic-Pot Clav 875-125Mg 1 each PO Q12HR 7 Days #14 tab 12/17/23 Rx [Augmentin 875-125] predniSONE 0 mg PO DIRECTED 12 Days #18 tab 12/17/23 Rx Allergies Allergy/AdvReac Type Severity Reaction Status Date / Time No Known Allergies Allergy Verified 12/09/23 16:16 Physical Exam Vitals: Vital Signs Temp Pulse Pulse Resp BP BP Pulse Ox 12/10/23 12:38 99.2 F 99 16 92/52 96 12/10/23 08:27 94 L 12/10/23 08:20 100 12/10/23 08:05 101 H 12/10/23 07:20 98.6 F 103 H 16 88/52 90 L 12/10/23 03:14 16 12/10/23 02:00 97.8 F 111 H 16 75/45 98 12/09/23 22:25 99.4 F 56 L 16 114/70 94 L 12/09/23 21:57 98.2 F 68 20 96/52 98 12/09/23 19:00 58 L 20 97 12/09/23 18:26 12/09/23 17:20 72 18 98/53 95 12/09/23 15:18 98.1 F 106 H 18 86/50 99 12/09/23 15:10 84 12/09/23 14:55 86 FiO2 12/10/23 12:38 12/10/23 08:27 28 12/10/23 08:20 12/10/23 08:05 12/10/23 07:20 12/10/23 03:14 12/10/23 02:00 12/09/23 22:25 12/09/23 21:57 12/09/23 19:00 12/09/23 18:26 28 12/09/23 17:20 12/09/23 15:18 12/09/23 15:10 12/09/23 14:55 Intake and Output 12/09/23 12/10/23 12/10/23 22:59 06:59 14:59 Intake Total 240 300 Balance 240 300 Intake: IV 300 Oral 240 Other: Voiding Method Toilet # Voids 2 Weight 58.967 kg 58.967 kg GENERAL DESCRIPTION: Middle-aged male lying in bed, no distress. No tachypnea or accessory muscle of respiration use. HEENT: Shows Pallor , no scleral icterus. Oral mucous membrane is dry. NECK: Trachea central, no thyromegaly. LUNGS: Unlabored breathing. Coarse breath sounds bilaterally. HEART: S1, S2, regular rate and rhythm. No loud murmur ABDOMEN: Soft, no tenderness , EXTREMITIES: No edema of feet. SKIN: No rash, no masses palpable. NEUROLOGICAL: The patient is awake, alert, oriented x3, mood and affect normal. Results CBC & Chem 7: 12/17/23 06:02 12/17/23 06:02 Labs: Abnormal Lab Results - Last 24 Hours (Table) 12/09/23 12/09/23 12/10/23 Range/Units 14:01 14:01 07:41 WBC 22.8 H 22.14 H (3.8-10.6) k/uL RBC 4.07 L 3.86 L (4.30-5.90) m/uL Hgb 12.0 L 11.4 L (13.0-17.5) gm/dL Hct 37.2 L (39.6-50.0) % MCHC 30.5 L 30.6 L (31.0-37.0) g/dL Plt Count 760 H 655 H (150-450) k/uL Immature Gran # 0.44 H (0.00-0.04) X 10*3/uL Neutrophils # 20.8 H 19.44 H (1.3-7.7) k/uL Lymphocytes # 0.9 L 0.86 L (1.0-4.8) k/uL Monocytes # 1.31 H (0.20-1.00) X 10*3/uL Eosinophils # 0.02 L (0.04-0.35) X 10*3/uL Sodium 133 L (137-145) mmol/L Chloride 91 L (98-107) mmol/L Carbon Dioxide 32 H (22-30) mmol/L Anion Gap (4.00-12.00) mmol/L BUN 48 H (9-20) mg/dL BUN/Creatinine Ratio (12.00-20.00) Ratio Glucose 116 H (74-99) mg/dL Magnesium 2.5 H (1.6-2.3) mg/dL ALT 53 H (4-49) U/L Alkaline Phosphatase 391 H (38-126) U/L Total Protein (6.2-8.2) g/dL Albumin 3.2 L (3.5-5.0) g/dL Albumin/Globulin Ratio (1.60-3.17) Ratio 12/10/23 Range/Units 07:41 WBC (3.8-10.6) k/uL RBC (4.30-5.90) m/uL Hgb (13.0-17.5) gm/dL Hct (39.6-50.0) % MCHC (31.0-37.0) g/dL Plt Count (150-450) k/uL Immature Gran # (0.00-0.04) X 10*3/uL Neutrophils # (1.3-7.7) k/uL Lymphocytes # (1.0-4.8) k/uL Monocytes # (0.20-1.00) X 10*3/uL Eosinophils # (0.04-0.35) X 10*3/uL Sodium (137-145) mmol/L Chloride (98-107) mmol/L Carbon Dioxide (22-30) mmol/L Anion Gap 14.30 H (4.00-12.00) mmol/L BUN 32.6 H (9-20) mg/dL BUN/Creatinine Ratio 40.75 H (12.00-20.00) Ratio Glucose (74-99) mg/dL Magnesium 2.7 H (1.6-2.3) mg/dL ALT (4-49) U/L Alkaline Phosphatase 301 H (38-126) U/L Total Protein 6.1 L (6.2-8.2) g/dL Albumin 3.0 L (3.5-5.0) g/dL Albumin/Globulin Ratio 0.97 L (1.60-3.17) Ratio Assessment and Plan (1) Leukocytosis Status: Acute Code(s): D72.829 - ELEVATED WHITE BLOOD CELL COUNT, UNSPECIFIED SNOMED Code(s): 988809839 (2) Pneumonia Status: Acute Priority: High Code(s): J18.9 - PNEUMONIA, UNSPECIFIED ORGANISM SNOMED Code(s): 184202355 Plan: 1patient presented to hospital with fever increasing shortness of breath and is bringing up some purulent sputum in this patient noticed to have significant normality on the CT of the chest concerning for possible necrotic tumor versus a component of postobstructive pneumonia likely gram-negative 2-try to obtain a sputum for Gram stain culture check a CRP and a procalcitonin level 3-continue with the Zosyn discontinue Zithromax We will follow on clinical condition and cultures to further adjust medication if needed Thank you for this consultation we will follow the patient along with you Dictation was produced using [employer] dictation software. please excuse any grammatical, word or spelling errors. Time with Patient: Greater than 30
--- NOTE | 2023-12-10 23:47 | CT ---
EXAMINATION TYPE: CT soft tissue neck wo con CT DLP: 293.1 mGycm, Automated exposure control for dose reduction was used. DATE OF EXAM: 12/10/2023 6:05 PM COMPARISON: CT neck 05/20/2023. PET/CT 10/07/2023 CLINICAL INDICATION:Male, 58 years old with history of pna, trach; PHH, malignant neoplasm supraglott is TECHNIQUE: Standard enhanced CT of the neck. Axial sections with coronal and sagittal reformats were obtained. Contrast used: mL of , none Oral contrast used: none. FINDINGS: Lack of IV contrast significantly impairs evaluation of the neck. There is asymmetric soft tissue thickening seen involving the left-sided soft tissues of the larynx. There is mild narrowing of the airway. There is a tracheostomy tube inserted below the level of the t rachea which appears in good position. The hypopharynx shows mild gaseous distention. Thyroid, parotid, other salivary glands appear grossly normal and symmetric. Pharyngeal fat is preserved. No enlarged by CT criteria nodes are identified. Moderate to heavy calcifications of the carotid artery bifurcations are present. Osseous structures appear essentially stable, no acute process demonstrated. IMPRESSION: 1. Ill-defined left laryngeal mass. 2. No visible lymphadenopathy.
[2023-12-11 05:28] LABS: Appearance,BF Turbid (Clear); RBC, Body Fluid 1250 /UL (0-2000)
[2023-12-11 09:18] LABS: Basophils # (A) 0.05 X 10*3/uL (0.00-0.10); Basophils % (A) 0.3 %; Eosinophils # (A) 0.08 X 10*3/uL (0.04-0.35); Eosinophils % (A) 0.5 %; HCT 35.6 % (39.6-50.0); HGB 10.8 g/dL (13.0-17.0); Lymphocytes # (A) 0.42 X 10*3/uL (0.90-5.00); Lymphocytes % (A) 2.7 %; MCH 29.8 pg (27.0-32.0); MCHC 30.3 g/dL (32.0-37.0); MCV 98.1 FL (80.0-97.0); Mean Platelet Volume 9.9 FL (9.5-12.2); Monocytes % (A) 1.3 %; NRBC Per 100 WBC 0 X 10*3/uL (0.00-0.01); Neutrophils # (A) 14.33 X 10*3/uL (1.80-7.70); Neutrophils % (A) 93.8 %; Platelet Count 625 X 10*3/uL (140-440); RBC 3.63 X 10*6/uL (4.40-5.60); RDW 13.8 % (11.5-14.5)
[2023-12-11 09:47] LABS: ALT 35 U/L (10-49); AST 29 U/L (14-35); Albumin 2.8 g/dL (3.8-4.9); Alkaline Phosphatase 264 U/L (41-126); BUN/Creat Ratio 47.71 Ratio (12.00-20.00); Blood Urea Nitrogen 33.4 mg/dL (9.0-27.0); Calcium 8.9 mg/dL (8.7-10.3); Carbon Dioxide 30.7 mmol/L (21.6-31.8); Chloride 100 mmol/L (96-109); Globulin 2.8 g/dL (1.6-3.3); Glucose 224 mg/dL (70-110); Potassium 4.7 mmol/L (3.5-5.5); Sodium 141 mmol/L (135-145); Total Bilirubin 0.2 mg/dL (0.3-1.2); Total Protein 5.6 g/dL (6.2-8.2)
--- NOTE | 2023-12-11 13:30 | P.PN ---
Subjective Progress Note Date: 12/11/23 This is a 58-year-old male patient with a known history of laryngeal cancer status post tracheostomy tube insertion, status post PEG tube insertion, chronic and ongoing tobacco dependence, hypothyroidism, Graves' disease, diverticulosis. PET scan from September 2023 revealed persistent uptake in the posterior lateral right cord level compatible with neoplasm, there was a new lung nodule identified with elevated SUV suspicious for neoplasm in the right lower lobe. He is being followed by both medical and radiation oncology. He presented here to the emergency room yesterday with complaints of increasing shortness of breath, chronic back pain and generalized body aches and pains. X-ray reveals opacification of the right lower lobe. CT scan of the chest reveals lobular heterogenous mass with internal cystic and necrotic components centered in the right middle lobe. This is favored to represent interval progression the patient's known malignancy with superimposed infection not excluded. And emphysema changes noted. Small right pleural effusion. White count 22.1. Hemoglobin 11.4. Platelets 655. Sodium 140. Potassium 4.6. Bicarb 29. BUN 33. Creatinine 0.8. Viral screen negative. He is seen today in consultation on the regular medical floor. He is sitting up in bed. Awake and alert in no acute distress. He is maintaining O2 saturations in the mid 90s on 28% FiO2 via trach collar. He is afebrile. The patient is seen today December 11, 2023 in follow-up on the regular medical floor. He is currently sitting up in bed. Awake and alert in no acute distress. He is maintaining good O2 saturations in the 90s on 60% FiO2 via trach collar. CT scan of the abdomen and pelvis revealed large right middle lobe neoplastic mass and right pleural effusion. No clear evidence of mass or metastatic adenopathy in the abdomen or pelvis. CT scan of the neck reveals an ill-defined left laryngeal mass. No visible lymphadenopathy. Cultures revealed no growth. White count 15.3. Hemoglobin 10.8. Platelets 625. Sodium 141. Potassium 4.7. Bicarb 31. BUN 33. Creatinine 0.7. Glucose 224. Bronchial wash cultures and cytology pending. Ari on bronchodilators, steroids, Zosyn. Objective - Vital Signs Vital signs: Vital Signs Temp 98.7 F 12/11/23 07:35 Pulse 98 12/11/23 13:00 Resp 18 12/11/23 07:35 BP 111/70 12/11/23 07:35 Pulse Ox 93 L 12/11/23 07:35 FiO2 60 12/11/23 08:34 Intake & Output 12/10/23 12/11/23 12/11/23 18:59 06:59 18:59 Intake Total 300 90 Balance 300 90 Weight 57.6 kg 58.7 kg Intake: IV 300 Tube Feeding 90 Other: Voiding Method Toilet Toilet # Voids 2 - Exam GENERAL EXAM: Alert, 58-year-old male patient, on 60% FiO2 via trach collar, comfortable in no apparent distress. HEAD: Normocephalic. EYES: Normal reaction of pupils, equal size. NOSE: Clear with pink turbinates. THROAT: No erythema or exudates. NECK: Tracheostomy tube secured in place. No masses, no JVD. CHEST: No chest wall deformity. LUNGS: Equal air entry with crackles of the right lung base. CVS: S1 and S2 normal with no audible murmur, regular rhythm. ABDOMEN: No hepatosplenomegaly, normal bowel sounds, no guarding or rigidity. SPINE: No scoliosis or deformity SKIN: No rashes CENTRAL NERVOUS SYSTEM: No focal deficits, tone is normal in all 4 extremities. EXTREMITIES: There is no peripheral edema. No clubbing, no cyanosis. Peripheral pulses are intact. - Labs CBC & Chem 7: 12/11/23 06:28 12/11/23 06:28 Labs: Abnormal Lab Results - Last 24 Hours (Table) 12/10/23 12/11/23 12/11/23 Range/Units 13:01 06:28 06:28 WBC 15.30 H (4.50-10.00) X 10*3/uL RBC 3.63 L (4.40-5.60) X 10*6/uL Hgb 10.8 L (13.0-17.0) g/dL Hct 35.6 L (39.6-50.0) % MCV 98.1 H (80.0-97.0) FL MCHC 30.3 L (32.0-37.0) g/dL Plt Count 625 H (140-440) X 10*3/uL Immature Gran # 0.22 H (0.00-0.04) X 10*3/uL Neutrophils # 14.33 H (1.80-7.70) X 10*3/uL Lymphocytes # 0.42 L (0.90-5.00) X 10*3/uL BUN 33.4 H (9.0-27.0) mg/dL BUN/Creatinine Ratio 47.71 H (12.00-20.00) Ratio Glucose 224 H (70-110) mg/dL Total Bilirubin 0.2 L (0.3-1.2) mg/dL Alkaline Phosphatase 264 H (41-126) U/L Total Protein 5.6 L (6.2-8.2) g/dL Albumin 2.8 L (3.8-4.9) g/dL Albumin/Globulin Ratio 1.00 L (1.60-3.17) Ratio Fluid Appearance Turbid A (Clear) Microbiology - Last 24 Hours (Table) 12/09/23 17:09 Blood Culture - Preliminary Blood 12/09/23 16:40 Blood Culture - Preliminary Blood Assessment and Plan Assessment: Acute hypoxic respiratory failure secondary to right lower lung opacification and possible postobstructive pneumonia. CT scan of the chest reveals lobular heterogenous mass with internal cystic and necrotic components centered in the right middle lobe. This is favored to represent interval progression the patient's known malignancy with superimposed infection not excluded. Emphysema changes noted. Small right pleural effusion. Status post bronchoscopy with BAL on December 10, 2023. Follow-up CT scan of the abdomen reveals clearer evidence of a large right middle lobe neoplastic mass and right pleural effusion. Will require transbronchial biopsies. 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 PET scan from September 2023 revealed persistent uptake in the posterior lateral right cord level compatible with neoplasm, there was a new lung nodule identified with elevated SUV suspicious for neoplasm in the right lower lobe. CT scan of the neck from 12/10/2023 is reveals an ill- defined left laryngeal mass. No visible lymphadenopathy Dysphagia secondary to above status post PEG tube placement in May 2023 Hypothyroidism Graves' disease Chronic and ongoing tobacco dependence Obstructive pulmonary disease Plan: The patient was seen and evaluated CT scans of the abdomen and neck, labs and medications reviewed Will need transbronchial biopsies of the right lung mass early next week The patient is aware of the CAT scan findings and agreeable to the plan Continue to titrate the FiO2 as tolerated Continue bronchodilators and steroids We will continue to follow I have personally seen and examined the patient, performed the documentation and the assessment and plan as written. Number of minutes spent on the visit: 10.
--- NOTE | 2023-12-11 17:05 | P.PN ---
Subjective Progress Note Date: 12/11/23 Principal diagnosis: Reason for follow-up is pneumonia Patient is a 58-year-old male past medical history significant for COPD syncope history of laryngeal cancer with radiation and chemotherapy and the patient did have tracheostomy and PEG tube insertion presenting to the ER for evaluation of increasing shortness of breath generalized bodyaches, patient have CT of the chest with evidence of lobular heterogeneous mass with internal cystic and necrotic components centered in the right middle lobe and concern for possible infection. On today's evaluation that is 12/11/2023,the patient denies any fever or any chills, patient is breathing comfortably on trach collar the patient denies chest pain shortness of breath and cough is decreased in intensity less produc tive, patient denies abdominal pain, no nausea vomiting or diarrhea. The patient white count is down to 15.30, creatinine 0.7 cultures are pending Objective - Vital Signs Vital signs: Vital Signs Temp 98.6 F 12/11/23 12:50 Pulse 98 12/11/23 13:00 Resp 19 12/11/23 12:50 BP 121/55 12/11/23 12:50 Pulse Ox 98 12/11/23 12:50 FiO2 60 12/11/23 08:34 Intake & Output 12/10/23 12/11/23 12/11/23 18:59 06:59 18:59 Intake Total 300 90 Balance 300 90 Weight 57.6 kg 58.7 kg Intake: IV 300 Tube Feeding 90 Other: Voiding Method Toilet Toilet Toilet # Voids 2 - Exam GENERAL DESCRIPTION: Middle-age male up in bed in no distress RESPIRATORY SYSTEM: Unlabored breathing , decreased breath sounds at bases HEART: S1 S2 regular rate and rhythm , ABDOMEN: Soft , no tenderness EXTREMITIES: No edema feet - Labs CBC & Chem 7: 12/11/23 06:28 12/11/23 06:28 Labs: Abnormal Lab Results - Last 24 Hours (Table) 12/10/23 12/11/23 12/11/23 Range/Units 13:01 06:28 06:28 WBC 15.30 H (4.50-10.00) X 10*3/uL RBC 3.63 L (4.40-5.60) X 10*6/uL Hgb 10.8 L (13.0-17.0) g/dL Hct 35.6 L (39.6-50.0) % MCV 98.1 H (80.0-97.0) FL MCHC 30.3 L (32.0-37.0) g/dL Plt Count 625 H (140-440) X 10*3/uL Immature Gran # 0.22 H (0.00-0.04) X 10*3/uL Neutrophils # 14.33 H (1.80-7.70) X 10*3/uL Lymphocytes # 0.42 L (0.90-5.00) X 10*3/uL BUN 33.4 H (9.0-27.0) mg/dL BUN/Creatinine Ratio 47.71 H (12.00-20.00) Ratio Glucose 224 H (70-110) mg/dL Total Bilirubin 0.2 L (0.3-1.2) mg/dL Alkaline Phosphatase 264 H (41-126) U/L Total Protein 5.6 L (6.2-8.2) g/dL Albumin 2.8 L (3.8-4.9) g/dL Albumin/Globulin Ratio 1.00 L (1.60-3.17) Ratio Fluid Appearance Turbid A (Clear) Microbiology - Last 24 Hours (Table) 12/10/23 17:30 Gram Stain - Preliminary Sputum 12/09/23 17:09 Blood Culture - Preliminary Blood 12/09/23 16:40 Blood Culture - Preliminary Blood Assessment and Plan (1) Leukocytosis Current Visit: Yes Status: Acute Code(s): D72.829 - ELEVATED WHITE BLOOD CELL COUNT, UNSPECIFIED SNOMED Code(s): 905005634 (2) Pneumonia Current Visit: Yes Status: Acute Priority: High Code(s): J18.9 - PNEUMONIA, UNSPECIFIED ORGANISM SNOMED Code(s): 506849336 Plan: 1patient presented to hospital with fever increasing shortness of breath and is bringing up some purulent sputum in this patient noticed to have significant normality on the CT of the chest concerning for possible necrotic tumor versus a component of postobstructive pneumonia likely gram-negative 2-sputum culture currently pending procalcitonin level is pending 3-patient to continue with the Zosyn while waiting for the culture to finalize Dictation was produced using [employer] software. please excuse any grammatical, word or spelling errors.
--- NOTE | 2023-12-12 01:32 | PN ---
PROGRESS NOTE DATE OF SERVICE: 12/11/2023 HISTORY OF PRESENT ILLNESS: This is a 58-year-old gentleman, who was admitted with significant secretions from the neck and as well as possible right lower lobe pneumonia, also had significant mass on the right side also. The patient also had a vague left pterygium mass also. Pulmonary has seen the patient and recommended possibly transbronchial biopsy next week. The patient is on empiric antibiotics. PAST MEDICAL HISTORY: Reviewed. REVIEW OF SYSTEMS: Fourteen-point review of systems negative except as mentioned earlier. CURRENT MEDICATIONS: Reviewed include Dilaudid, dose and rest of medications noted. PHYSICAL EXAMINATION: VITAL SIGNS: Pulse is 87, blood pressure 111/70, respirations 18. HEENT: Conjunctivae normal. NECK: No JVD. CARDIOVASCULAR: S1, S2. RESPIRATIONS: Breath sounds diminished at the bases. A few scattered rhonchi and crackles ABDOMEN: Soft. NERVOUS SYSTEM: Nonfocal. LABORATORY DATA: Reviewed. WBC is in diminishing trends. ASSESSMENT: 1. Chronic obstructive pulmonary disease acute exacerbation with possible right lower lobe pneumonia, possibly aspiration. 2. Elevated WBC. 3. Right middle lobe lung mass, possibly malignancy. 4. Left laryngeal mass in the CT scan. 5. Excessive discharge from the neck. 6. Right-sided chest and neck pain. 7. Diabetes mellitus, type 2. 8. History of laryngeal cancer. 9. Chronic obstructive pulmonary disease. 10.History of Graves disease. 11.History of esophageal cancer with radiation chemo at [facility]. 12.History of nicotine dependence. RECOMMENDATIONS AND DISCUSSION: Recommend to continue current management. Continue symptomatic treatment. Otherwise, recommend to continue the antibiotics, bronchodilators. I would also recommend follow up with Hematology/Oncology and as well as Infectious Disease and Pulmonary. Cultures are negative at this time. White count is slightly improved, but the patient is still symptomatic. We will repeat labs. Closely follow with Pulmonary as mentioned for possible transbronchial biopsy. Further recommendations to follow. MMODL / IJN: [id number] /
[2023-12-12 09:21] LABS: Basophils # (A) 0.03 X 10*3/uL (0.00-0.10); Basophils % (A) 0.2 %; Eosinophils # (A) 0 X 10*3/uL (0.04-0.35); Eosinophils % (A) 0 %; HCT 31.3 % (39.6-50.0); HGB 9.3 g/dL (13.0-17.0); Lymphocytes # (A) 0.42 X 10*3/uL (0.90-5.00); Lymphocytes % (A) 2.4 %; MCH 30.3 pg (27.0-32.0); MCHC 29.7 g/dL (32.0-37.0); Mean Platelet Volume 10.3 FL (9.5-12.2); Monocytes # (A) 0.55 X 10*3/uL (0.20-1.00); Monocytes % (A) 3.1 %; NRBC Per 100 WBC 0 X 10*3/uL (0.00-0.01); Neutrophils # (A) 16.62 X 10*3/uL (1.80-7.70); Platelet Count 608 X 10*3/uL (140-440); RBC 3.07 X 10*6/uL (4.40-5.60); WBC 17.85 X 10*3/uL (4.50-10.00)
[2023-12-12 09:41] LABS: BUN/Creat Ratio 51.83 Ratio (12.00-20.00); Blood Urea Nitrogen 31.1 mg/dL (9.0-27.0); Calcium 8.8 mg/dL (8.7-10.3); Carbon Dioxide 32.4 mmol/L (21.6-31.8); Chloride 105 mmol/L (96-109); Glucose 172 mg/dL (70-110); Potassium 5.2 mmol/L (3.5-5.5); Sodium 145 mmol/L (135-145)
--- NOTE | 2023-12-12 12:39 | P.PN ---
Subjective Progress Note Date: 12/12/23 This is a 58-year-old male patient with a known history of laryngeal cancer status post tracheostomy tube insertion, status post PEG tube insertion, chronic and ongoing tobacco dependence, hypothyroidism, Graves' disease, diverticulosis. PET scan from September 2023 revealed persistent uptake in the posterior lateral right cord level compatible with neoplasm, there was a new lung nodule identified with elevated SUV suspicious for neoplasm in the right lower lobe. He is being followed by both medical and radiation oncology. He presented here to the emergency room yesterday with complaints of increasing shortness of breath, chronic back pain and generalized body aches and pains. X-ray reveals opacification of the right lower lobe. CT scan of the chest reveals lobular heterogenous mass with internal cystic and necrotic components centered in the right middle lobe. This is favored to represent interval progression the patient's known malignancy with superimposed infection not excluded. And emphysema changes noted. Small right pleural effusion. White count 22.1. Hemoglobin 11.4. Platelets 655. Sodium 140. Potassium 4.6. Bicarb 29. BUN 33. Creatinine 0.8. Viral screen negative. He is seen today in consultation on the regular medical floor. He is sitting up in bed. Awake and alert in no acute distress. He is maintaining O2 saturations in the mid 90s on 28% FiO2 via trach collar. He is afebrile. The patient is seen today December 11, 2023 in follow-up on the regular medical floor. He is currently sitting up in bed. Awake and alert in no acute distress. He is maintaining good O2 saturations in the 90s on 60% FiO2 via trach collar. CT scan of the abdomen and pelvis revealed large right middle lobe neoplastic mass and right pleural effusion. No clear evidence of mass or metastatic adenopathy in the abdomen or pelvis. CT scan of the neck reveals an ill-defined left laryngeal mass. No visible lymphadenopathy. Cultures revealed no growth. White count 15.3. Hemoglobin 10.8. Platelets 625. Sodium 141. Potassium 4.7. Bicarb 31. BUN 33. Creatinine 0.7. Glucose 224. Bronchial wash cultures and cytology pending. Ari on bronchodilators, steroids, Zosyn. The patient is seen today December 12, 2023 in follow-up on the regular medical floor. He is awake and alert in no acute distress. He is maintaining O2 saturations in the high 90s on 50% FiO2 via trach collar. He is afebrile. Hemodynamically stable. White count 17.8. Hemoglobin 9.3. Platelets 608. Sodium 145. Potassium 5.2. Bicarb 32. BUN 31. Creatinine 0.6. Glucose 172. Bronchial wash fluid revealed no growth. Cytology pending. He is continue on DuoNeb ventilations, Solu-Medrol. His antibiotics in the form of Zosyn. Objective - Vital Signs Vital signs: Vital Signs Temp 97.5 F L 12/12/23 11:55 Pulse 77 12/12/23 11:55 Resp 18 12/12/23 11:55 BP 93/57 12/12/23 11:55 Pulse Ox 95 12/12/23 11:55 FiO2 60 12/12/23 09:28 Intake & Output 12/11/23 12/12/23 12/12/23 18:59 06:59 18:59 Intake Total 735 Output Total 550 Balance 185 Weight 60 kg Intake: Oral 20 Tube Feeding 715 Output: Urine 550 Other: Voiding Method Toilet Toilet - Exam GENERAL EXAM: Alert, 58-year-old male patient, on 50% FiO2 via trach collar, comfortable in no apparent distress. HEAD: Normocephalic. EYES: Normal reaction of pupils, equal size. NOSE: Clear with pink turbinates. THROAT: No erythema or exudates. NECK: Tracheostomy tube secured in place. No masses, no JVD. CHEST: No chest wall deformity. LUNGS: Equal air entry with crackles of the right lung base. CVS: S1 and S2 normal with no audible murmur, regular rhythm. ABDOMEN: No hepatosplenomegaly, normal bowel sounds, no guarding or rigidity. SPINE: No scoliosis or deformity SKIN: No rashes CENTRAL NERVOUS SYSTEM: No focal deficits, tone is normal in all 4 extremities. EXTREMITIES: There is no peripheral edema. No clubbing, no cyanosis. Peripheral pulses are intact. - Labs CBC & Chem 7: 12/12/23 06:05 12/12/23 06:05 Labs: Abnormal Lab Results - Last 24 Hours (Table) 12/12/23 12/12/23 Range/Units 06:05 06:05 WBC 17.85 H (4.50-10.00) X 10*3/uL RBC 3.07 L (4.40-5.60) X 10*6/uL Hgb 9.3 L (13.0-17.0) g/dL Hct 31.3 L (39.6-50.0) % MCV 102.0 H (80.0-97.0) FL MCHC 29.7 L (32.0-37.0) g/dL Plt Count 608 H (140-440) X 10*3/uL Immature Gran # 0.23 H (0.00-0.04) X 10*3/uL Neutrophils # 16.62 H (1.80-7.70) X 10*3/uL Lymphocytes # 0.42 L (0.90-5.00) X 10*3/uL Eosinophils # 0 L (0.04-0.35) X 10*3/uL Carbon Dioxide 32.4 H (21.6-31.8) mmol/L BUN 31.1 H (9.0-27.0) mg/dL BUN/Creatinine Ratio 51.83 H (12.00-20.00) Ratio Glucose 172 H (70-110) mg/dL Microbiology - Last 24 Hours (Table) 12/10/23 13:01 Gram Stain - Preliminary Bronchoalviolar Lavage - Right 12/09/23 17:09 Blood Culture - Preliminary Blood 12/09/23 16:40 Blood Culture - Preliminary Blood 12/10/23 17:30 Gram Stain - Preliminary Sputum Assessment and Plan Assessment: Acute hypoxic respiratory failure secondary to right lower lung opacification and possible postobstructive pneumonia. CT scan of the chest reveals lobular heterogenous mass with internal cystic and necrotic components centered in the right middle lobe. This is favored to represent interval progression the patient's known malignancy with superimposed infection not excluded. Emphysema changes noted. Small right pleural effusion. Status post bronchoscopy with BAL on December 10, 2023. Follow-up CT scan of the abdomen reveals clearer evidence of a large right middle lobe neoplastic mass and right pleural effusion. Will require transbronchial biopsies. 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 PET scan from September 2023 revealed persistent uptake in the posterior lateral right cord level compatible with neoplasm, there was a new lung nodule identified with elevated SUV suspicious for neoplasm in the right lower lobe. CT scan of the neck from 12/10/2023 is reveals an ill- defined left laryngeal mass. No visible lymphadenopathy Dysphagia secondary to above status post PEG tube placement in May 2023 Hypothyroidism Graves' disease Chronic and ongoing tobacco dependence Obstructive pulmonary disease Plan: The patient was seen and evaluated Labs and medications reviewed Biopsies of the right lung mass pending Continue to titrate the FiO2 as tolerated Continue bronchodilators and steroids We will continue to follow I have personally seen and examined the patient, performed the documentation and the assessment and plan as written. Number of minutes spent on the visit: 10.
--- NOTE | 2023-12-12 14:43 | XR ---
EXAM: XR chest 1V portable CLINICAL INDICATION:Male, 58 years old with history of rt lung collapse; [facility] COMPARISON: Chest x-ray 12/10/2023, CT abdomen and pelvis 12/09/[address] chest 12/09/2023 TECHNIQUE: Chest single view. FINDINGS: Lines/tubes/devices: Tracheostomy in good position. Cardiomediastinum: Cardiac silhouette is mostly obscured on the right and not well assessed. Unremarkable mediastinal silhouette. Vasculature: No increased pulmonary vasculature. Lungs/pleura: Opacities in the right mid to lower lung zone, a combination of known lung mass and loculated pleural effusion, better seen on CT. Otherwise the lungs are stable. Background emphysematous changes. No ac walter left lung infiltrate, left pleural effusion, or pneumothorax. Bones/soft tissues: Bony thorax appears grossly unchanged as seen. Degenerative changes of the shoulders and spine. Regio nal soft tissues appear unremarkable. IMPRESSION: 1. Overall stable exam, without evidence of an acute cardiopulmonary abnormality. 2. Opacities in the right mid to lower lung zone, a combination of known lung mass and loculated pl eural effusion.
--- NOTE | 2023-12-12 16:33 | P.PN ---
Subjective Progress Note Date: 12/12/23 Principal diagnosis: Reason for follow-up is pneumonia Patient is a 58-year-old male past medical history significant for COPD syncope history of laryngeal cancer with radiation and chemotherapy and the patient did have tracheostomy and PEG tube insertion presenting to the ER for evaluation of increasing shortness of breath generalized bodyaches, patient have CT of the chest with evidence of lobular heterogeneous mass with internal cystic and necrotic components centered in the right middle lobe and concern for possible infection. On today's evaluation that is 12/12/2023,the patient remains to be afebrile, patient is on trach collar supplemental oxygen and denies any shortness of breath no chest pain or worsening cough.Patient denies having any nausea or vomi ting, no abdominal pain and no diarrhea has been reported. White count of 17.5, creatinine 0.6 cultures currently pending Objective - Vital Signs Vital signs: Vital Signs Temp 97.5 F L 12/12/23 11:55 Pulse 87 12/12/23 15:39 Resp 18 12/12/23 11:55 BP 93/57 12/12/23 11:55 Pulse Ox 95 12/12/23 11:55 FiO2 60 12/12/23 09:28 Intake & Output 12/11/23 12/12/23 12/12/23 18:59 06:59 18:59 Intake Total 735 Output Total 550 Balance 185 Weight 60 kg Intake: Oral 20 Tube Feeding 715 Output: Urine 550 Other: Voiding Method Toilet Toilet - Exam GENERAL DESCRIPTION: Middle-age male up in bed in no distress RESPIRATORY SYSTEM: Unlabored breathing , decreased breath sounds at bases HEART: S1 S2 regular rate and rhythm , ABDOMEN: Soft , no tenderness EXTREMITIES: No edema feet - Labs CBC & Chem 7: 12/12/23 06:05 12/12/23 06:05 Labs: Abnormal Lab Results - Last 24 Hours (Table) 12/12/23 12/12/23 Range/Units 06:05 06:05 WBC 17.85 H (4.50-10.00) X 10*3/uL RBC 3.07 L (4.40-5.60) X 10*6/uL Hgb 9.3 L (13.0-17.0) g/dL Hct 31.3 L (39.6-50.0) % MCV 102.0 H (80.0-97.0) FL MCHC 29.7 L (32.0-37.0) g/dL Plt Count 608 H (140-440) X 10*3/uL Immature Gran # 0.23 H (0.00-0.04) X 10*3/uL Neutrophils # 16.62 H (1.80-7.70) X 10*3/uL Lymphocytes # 0.42 L (0.90-5.00) X 10*3/uL Eosinophils # 0 L (0.04-0.35) X 10*3/uL Carbon Dioxide 32.4 H (21.6-31.8) mmol/L BUN 31.1 H (9.0-27.0) mg/dL BUN/Creatinine Ratio 51.83 H (12.00-20.00) Ratio Glucose 172 H (70-110) mg/dL Microbiology - Last 24 Hours (Table) 12/10/23 13:01 Gram Stain - Preliminary Bronchoalviolar Lavage - Right 12/09/23 17:09 Blood Culture - Preliminary Blood 12/09/23 16:40 Blood Culture - Preliminary Blood 12/10/23 17:30 Gram Stain - Preliminary Sputum Assessment and Plan (1) Leukocytosis Current Visit: Yes Status: Acute Code(s): D72.829 - ELEVATED WHITE BLOOD CELL COUNT, UNSPECIFIED SNOMED Code(s): 391461645 (2) Pneumonia Current Visit: Yes Status: Acute Priority: High Code(s): J18.9 - PNEUMONIA, UNSPECIFIED ORGANISM SNOMED Code(s): 261355097 Plan: 1patient presented to hospital with fever increasing shortness of breath and is bringing up some purulent sputum in this patient noticed to have significant normality on the CT of the chest concerning for possible necrotic tumor versus a component of postobstructive pneumonia likely gram-negative 2-sputum culture as well as BAL cultures currently pending 3-patient to continue with the Zosyn while waiting for the culture to finalize and monitor clinical course closely 4-slight worsening of the white count could be related to the steroids and will be monitored Dictation was produced using [employer] dictation software. please excuse any grammatical, word or spelling errors. Time with Patient: Less than 30
--- NOTE | 2023-12-13 02:06 | PN ---
PROGRESS NOTE DATE OF SERVICE: 12/12/2023 SUBJECTIVE: This is a 58-year-old gentleman, who was admitted with COPD acute exacerbation, possible pneumonia, right lung mass also. The Pulmonary is contemplating possible biopsy of the right lung mass. No chest pain. No palpitation. OBJECTIVE: VITAL SIGNS: Pulse is 77, blood pressure 93/56, respirations 18. CHEST: A few scattered rhonchi and crackles. ABDOMEN: Soft. NERVOUS SYSTEM: Nonfocal. LABORATORY DATA: WBC 17, the rest of the labs are noted. ASSESSMENT: 1. Chronic obstructive pulmonary disease acute exacerbation with possible right lower lobe pneumonia, possibly aspiration. 2. Increased WBC. 3. Right middle lobe lung mass, possible malignancy. 4. Left laryngeal mass in the CT scan. 5. Excessive discharge from the neck. 6. Right-sided chest and neck pain, possibly musculoskeletal or cancer-related. 7. Diabetes mellitus, type 2. 8. History of laryngeal cancer. 9. Chronic obstructive pulmonary disease. 10.History of Graves disease. 11.History of esophageal cancer with radiation and chemo at [facility]. 12.History of nicotine dependence. RECOMMENDATIONS AND DISCUSSION: Recommend to continue current management, continue symptomatic treatment. This patient has multiple complex abnormalities. We will continue the antibiotics. Follow the cultures. Otherwise, the BAL lavage is pending. Right lower lobe and right middle lobe collapse with consolidation was noted with possibly secondary to mucus plugging. I would recommend a repeat chest x-ray. Continue to follow with Pulmonary. Prognosis guarded. Further recommendations to follow. Continue with IV steroids and empiric antibiotics. See orders for further details. MMODL / IJN: [id number] /
[2023-12-13 09:33] LABS: Nucleated Cells, Body Fluid 6125 /UL
[2023-12-13] MEDS: SYMBICORT 160-4.5 MCG INHALER INHALATION SCH (11:41)
[2023-12-13 11:57] LABS: Basophils # (A) 0.06 X 10*3/uL (0.00-0.10); Basophils % (A) 0.3 %; Eosinophils # (A) 0.13 X 10*3/uL (0.04-0.35); Eosinophils % (A) 0.6 %; HCT 38.2 % (39.6-50.0); HGB 11.1 g/dL (13.0-17.0); Lymphocytes # (A) 0.35 X 10*3/uL (0.90-5.00); Lymphocytes % (A) 1.7 %; MCHC 29.1 g/dL (32.0-37.0); MCV 103.2 FL (80.0-97.0); Mean Platelet Volume 10.3 FL (9.5-12.2); Monocytes % (A) 3.5 %; NRBC Per 100 WBC 0 X 10*3/uL (0.00-0.01); Neutrophils # (A) 18.64 X 10*3/uL (1.80-7.70); Neutrophils % (A) 92.9 %; Platelet Count 697 X 10*3/uL (140-440); RDW 14.1 % (11.5-14.5); WBC 20.08 X 10*3/uL (4.50-10.00)
[2023-12-13 12:07] LABS: Blood Urea Nitrogen 27.9 mg/dL (9.0-27.0); Calcium 9.4 mg/dL (8.7-10.3); Carbon Dioxide 32.7 mmol/L (21.6-31.8); Chloride 106 mmol/L (96-109); Glucose 152 mg/dL (70-110); Potassium 5.4 mmol/L (3.5-5.5); Sodium 147 mmol/L (135-145)
--- NOTE | 2023-12-13 12:45 | P.PN ---
Subjective Progress Note Date: 12/13/23 This is a 58-year-old male patient with a known history of laryngeal cancer status post tracheostomy tube insertion, status post PEG tube insertion, chronic and ongoing tobacco dependence, hypothyroidism, Graves' disease, diverticulosis. PET scan from September 2023 revealed persistent uptake in the posterior lateral right cord level compatible with neoplasm, there was a new lung nodule identified with elevated SUV suspicious for neoplasm in the right lower lobe. He is being followed by both medical and radiation oncology. He presented here to the emergency room yesterday with complaints of increasing shortness of breath, chronic back pain and generalized body aches and pains. X-ray reveals opacification of the right lower lobe. CT scan of the chest reveals lobular heterogenous mass with internal cystic and necrotic components centered in the right middle lobe. This is favored to represent interval progression the patient's known malignancy with superimposed infection not excluded. And emphysema changes noted. Small right pleural effusion. White count 22.1. Hemoglobin 11.4. Platelets 655. Sodium 140. Potassium 4.6. Bicarb 29. BUN 33. Creatinine 0.8. Viral screen negative. He is seen today in consultation on the regular medical floor. He is sitting up in bed. Awake and alert in no acute distress. He is maintaining O2 saturations in the mid 90s on 28% FiO2 via trach collar. He is afebrile. The patient is seen today December 11, 2023 in follow-up on the regular medical floor. He is currently sitting up in bed. Awake and alert in no acute distress. He is maintaining good O2 saturations in the 90s on 60% FiO2 via trach collar. CT scan of the abdomen and pelvis revealed large right middle lobe neoplastic mass and right pleural effusion. No clear evidence of mass or metastatic adenopathy in the abdomen or pelvis. CT scan of the neck reveals an ill-defined left laryngeal mass. No visible lymphadenopathy. Cultures revealed no growth. White count 15.3. Hemoglobin 10.8. Platelets 625. Sodium 141. Potassium 4.7. Bicarb 31. BUN 33. Creatinine 0.7. Glucose 224. Bronchial wash cultures and cytology pending. Ari on bronchodilators, steroids, Zosyn. The patient is seen today December 12, 2023 in follow-up on the regular medical floor. He is awake and alert in no acute distress. He is maintaining O2 saturations in the high 90s on 50% FiO2 via trach collar. He is afebrile. Hemodynamically stable. White count 17.8. Hemoglobin 9.3. Platelets 608. Sodium 145. Potassium 5.2. Bicarb 32. BUN 31. Creatinine 0.6. Glucose 172. Bronchial wash fluid revealed no growth. Cytology pending. He is continue on DuoNeb ventilations, Solu-Medrol. His antibiotics in the form of Zosyn. The patient is seen today December 13, 2023 in follow-up on the regular medical floor. He is currently sitting up at the bedside. Awake and alert in no acute distress. He is maintaining O2 saturations in the 90s on 40% FiO2 via trach collar. He has normal saline at 75 MLS per hour. He has Jevity PEG tube feedings at 65 MLS per hour. Chest x-ray reveals overall stable findings without evidence of an acute cardiopulmonary process. Opacities of the right mid to lower lung zone reveals loculated effusion. Bronchial wash cytology results pending. Cultures revealed no growth. White count 20.0. Hemoglobin 11.1. Platelets 697. Sodium 147. Potassium 5.4. Bicarb 33. BUN 28. Creatinine 0.6. Glucose 152. He is continued on bronchodilators and steroids. Remains on Zosyn. Objective - Vital Signs Vital signs: Vital Signs Temp 97.9 F 12/13/23 07:27 Pulse 92 12/13/23 11:47 Resp 18 12/13/23 11:30 BP 112/67 12/13/23 11:30 Pulse Ox 92 L 12/13/23 11:30 FiO2 60 12/12/23 09:28 Intake & Output 12/12/23 12/13/23 12/13/23 18:59 06:59 18:59 Intake Total 715 1690 Balance 715 1690 Intake: Intake, IV Titration 700 Amount Piperacillin-Tazobactam 3 100 .375 gm In Sodium Chloride 0.9% 100 ml @ 25 mls/hr IVPB Q8HR [facility] Rx# :[id number] Sodium Chloride 0.9% 1, 600 000 ml @ 75 mls/hr IV . [id number] [facility] Rx#:[id number] Oral 120 Tube Feeding 715 780 Other 90 Other: Voiding Method Toilet Toilet - Exam GENERAL EXAM: Alert, pleasant 58-year-old male patient, on 40% FiO2 via trach collar, comfortable in no apparent distress. HEAD: Normocephalic. EYES: Normal reaction of pupils, equal size. NOSE: Clear with pink turbinates. THROAT: No erythema or exudates. NECK: Tracheostomy tube secured in place. No masses, no JVD. CHEST: No chest wall deformity. LUNGS: Equal air entry with crackles of the right lung base. CVS: S1 and S2 normal with no audible murmur, regular rhythm. ABDOMEN: No hepatosplenomegaly, normal bowel sounds, no guarding or rigidity. SPINE: No scoliosis or deformity SKIN: No rashes CENTRAL NERVOUS SYSTEM: No focal deficits, tone is normal in all 4 extremities. EXTREMITIES: There is no peripheral edema. No clubbing, no cyanosis. Peripheral pulses are intact. - Labs CBC & Chem 7: 12/13/23 06:19 12/13/23 06:19 Labs: Abnormal Lab Results - Last 24 Hours (Table) 12/10/23 12/13/23 12/13/23 Range/Units 13:01 06:19 06:19 WBC 20.08 H (4.50-10.00) X 10*3/uL RBC 3.70 L (4.40-5.60) X 10*6/uL Hgb 11.1 L (13.0-17.0) g/dL Hct 38.2 L (39.6-50.0) % MCV 103.2 H (80.0-97.0) FL MCHC 29.1 L (32.0-37.0) g/dL Plt Count 697 H (140-440) X 10*3/uL Immature Gran # 0.20 H (0.00-0.04) X 10*3/uL Neutrophils # 18.64 H (1.80-7.70) X 10*3/uL Lymphocytes # 0.35 L (0.90-5.00) X 10*3/uL Sodium 147 H (135-145) mmol/L Carbon Dioxide 32.7 H (21.6-31.8) mmol/L BUN 27.9 H (9.0-27.0) mg/dL BUN/Creatinine Ratio 46.50 H (12.00-20.00) Ratio Glucose 152 H (70-110) mg/dL Fluid Appearance Turbid A (Clear) Microbiology - Last 24 Hours (Table) 12/10/23 17:30 Gram Stain - Final Sputum Sputum Culture - Final 12/10/23 13:01 Gram Stain - Final Bronchoalviolar Lavage - Right Bronchial Washings Culture - Final 12/10/23 13:01 Acid Fast Bacilli Smear - Preliminary Bronchoalviolar Lavage - Right 12/09/23 17:09 Blood Culture - Preliminary Blood 12/09/23 16:40 Blood Culture - Preliminary Blood Assessment and Plan Assessment: Acute hypoxic respiratory failure secondary to right lower lung opacification and possible postobstructive pneumonia. CT scan of the chest reveals lobular heterogenous mass with internal cystic and necrotic components centered in the right middle lobe. This is favored to represent interval progression the patient's known malignancy with superimposed infection not excluded. Emphysema changes noted. Small right pleural effusion. Status post bronchoscopy with BAL on December 10, 2023. Follow-up CT scan of the abdomen reveals clearer evidence of a large right middle lobe neoplastic mass and right pleural effusion. May require transbronchial biopsies if bronchial wash cytology negative. 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 PET scan from September 2023 revealed persistent uptake in the posterior lateral right cord level compatible with neoplasm, there was a new lung nodule identified with elevated SUV suspicious for neoplasm in the right lower lobe. CT scan of the neck from 12/10/2023 is reveals an ill- defined left laryngeal mass. No visible lymphadenopathy Dysphagia secondary to above status post PEG tube placement in May 2023 Hypothyroidism Graves' disease Chronic and ongoing tobacco dependence Obstructive pulmonary disease Plan: The patient was seen and evaluated Chest x-ray, labs and medications reviewed Bronchial wash cytology pending If negative may require lung biopsy Continue to titrate the FiO2 as tolerated Continue bronchodilators and steroids We will continue to follow I have personally seen and examined the patient, performed the documentation and the assessment and plan as written. Number of minutes spent on the visit: 10.
--- NOTE | 2023-12-13 12:50 | PN ---
PROGRESS NOTE DATE OF SERVICE: 12/13/2023 SUBJECTIVE: This is a 58-year-old gentleman, who was admitted with COPD exacerbation, also had right lower lobe mass versus pneumonia. The patient had bronchoscopy today, results are pending. No chest pain. No palpitations. No fever. PHYSICAL EXAMINATION: VITAL SIGNS: Pulse is 81, blood pressure 130/60, and respirations 18. NECK: Tracheostomy. CARDIOVASCULAR: S1 and S2. RESPIRATIONS: Few scattered rhonchi and crackles. ABDOMEN: Soft. LABORATORY DATA: Not available. ASSESSMENT: 1. Chronic obstructive pulmonary disease acute exacerbation with possible right lower lobe pneumonia, possibly aspiration versus mass lesion. 2. Status post bronchoscopy. 3. Increased WBC. 4. Left laryngeal mass in the CAT scan. 5. Excessive discharge from the neck on admission. 6. Right-sided chest and neck pain, possibly musculoskeletal or cancer-related. 7. Diabetes mellitus type 2. 8. History of laryngeal cancer. 9. Chronic obstructive pulmonary disease. 10.History of Graves disease. 11.Multiple complex medical issues. RECOMMENDATIONS AND DISCUSSION: I recommend to continue current management and continue symptomatic treatment. Otherwise, at this time, I would await for the biopsy. Repeat labs will be ordered. Symptomatic treatment. Pain management. The patient is requesting extra strength Tylenol. The patient is on IV steroids. Monitor blood sugars closely. Prognosis guarded. Further recommendations to follow. See orders for details. MMODL / IJN: [id number] /
[2023-12-13] MEDS: ACETAMINOPHEN TAB 500 MG TAB PO PRN (14:42)
--- NOTE | 2023-12-13 16:26 | P.PN ---
Subjective Progress Note Date: 12/13/23 No acute events. Patient resting comfortably in bed. Patient reports persisting right sided chest pain with some improvement with pain medications. Reports improvement in breathing since admission. Sputum culture negative, continues on IV antibiotics, steroids and bronchodilators. Cytology still pend ing. Objective - Vital Signs Vital signs: Vital Signs Temp 97.9 F 12/13/23 07:27 Pulse 92 12/13/23 11:47 Resp 18 12/13/23 11:30 BP 112/67 12/13/23 11:30 Pulse Ox 92 L 12/13/23 11:30 FiO2 60 12/12/23 09:28 Intake & Output 12/12/23 12/13/23 12/13/23 18:59 06:59 18:59 Intake Total 715 1690 Balance 715 1690 Intake: Intake, IV Titration 700 Amount Piperacillin-Tazobactam 3 100 .375 gm In Sodium Chloride 0.9% 100 ml @ 25 mls/hr IVPB Q8HR [facility] Rx# :[id number] Sodium Chloride 0.9% 1, 600 000 ml @ 75 mls/hr IV . [id number] [facility] Rx#:[id number] Oral 120 Tube Feeding 715 780 Other 90 Other: Voiding Method Toilet Toilet - Constitutional Constitutional Comment(s): Trach in situ General appearance: Present: no acute distress, thin - EENT Eyes: Present: anicteric sclerae, EOMI ENT: Present: hearing grossly normal - Respiratory Details: Breathing even and unlabored - Cardiovascular Details: Well-perfused - Gastrointestinal General gastrointestinal: Present: soft. Absent: tenderness - Integumentary Integumentary: Absent: cyanotic - Neurologic Neurologic Comment(s): No focal deficits - Musculoskeletal Musculoskeletal: Present: strength equal bilaterally - Psychiatric Psychiatric: Present: A&O x's 3 - Labs CBC & Chem 7: 12/13/23 06:19 12/13/23 06:19 Labs: Abnormal Lab Results - Last 24 Hours (Table) 12/10/23 12/13/23 12/13/23 Range/Units 13:01 06:19 06:19 WBC 20.08 H (4.50-10.00) X 10*3/uL RBC 3.70 L (4.40-5.60) X 10*6/uL Hgb 11.1 L (13.0-17.0) g/dL Hct 38.2 L (39.6-50.0) % MCV 103.2 H (80.0-97.0) FL MCHC 29.1 L (32.0-37.0) g/dL Plt Count 697 H (140-440) X 10*3/uL Immature Gran # 0.20 H (0.00-0.04) X 10*3/uL Neutrophils # 18.64 H (1.80-7.70) X 10*3/uL Lymphocytes # 0.35 L (0.90-5.00) X 10*3/uL Sodium 147 H (135-145) mmol/L Carbon Dioxide 32.7 H (21.6-31.8) mmol/L BUN 27.9 H (9.0-27.0) mg/dL BUN/Creatinine Ratio 46.50 H (12.00-20.00) Ratio Glucose 152 H (70-110) mg/dL Fluid Appearance Turbid A (Clear) Microbiology - Last 24 Hours (Table) 12/10/23 17:30 Gram Stain - Final Sputum Sputum Culture - Final 12/10/23 13:01 Gram Stain - Final Bronchoalviolar Lavage - Right Bronchial Washings Culture - Final 12/10/23 13:01 Acid Fast Bacilli Smear - Preliminary Bronchoalviolar Lavage - Right 12/09/23 17:09 Blood Culture - Preliminary Blood 12/09/23 16:40 Blood Culture - Preliminary Blood - Imaging and Cardiology CT abdomen and pelvis, chest x-ray and CT neck reviewed Assessment and Plan (1) Squamous cell carcinoma of head and neck Current Visit: Yes Status: Acute Priority: High Code(s): C44.42 - SQUAMOUS CELL CARCINOMA OF SKIN OF SCALP AND NECK SNOMED Code(s): 790133374 (2) Cancer associated pain Current Visit: Yes Status: Acute Priority: High Code(s): G89.3 - NEOPLASM RELATED PAIN (ACUTE) (CHRONIC) SNOMED Code(s): 08495588294410 (3) Pneumonia Current Visit: Yes Status: Acute Priority: High Code(s): J18.9 - PNEUMONIA, UNSPECIFIED ORGANISM SNOMED Code(s): 577661961 Plan: Pneumonia: Presented to the with complaints of shortness of breath, fever and right-sided chest pain and throat pain. Patient states he has been having increased sputum production and had a fever of 101.0. Denies any recent hemoptysis. -Upon admission chest x-ray revealed diffuse opacification of the right lower lung. CT chest with contrast showed lobular heterogeneous mass with internal cystic and necrotic component centered in the right middle lobe, in the region of prior FDG avid lung nodule. Favored to represent interval progression of the patient's known malignant disease, with superimposed infection not excluded. Small right pleural effusion. And emphysematous changes of the lungs. -Patient underwent bronchoscopy with BAL with Dr. Us with findings of mucous plug in the right middle lobe and right lower lobe bronchus. 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 PET scan was ordered by radiation oncology. It appears to be some uptake in the right vocal cord, and also in an opacity in the right lung. Patient was advised that these could be nonspecific and represent areas of inflammation. We will await evaluation and review of the scan by radiation oncology. Plan was to f/u in [address] scans if PET scan findings were not not found to be indicative of residual or new malignancy on upcoming evaluation by radiation oncology and ENT. Patient followed up with ENT and had biopsy of right vocal cord lesion on 11/11/2023 which was positive for malignancy. He was recommended for laryngectomy, however patient decided that he did not want to go through with surgery. He also states that he did not follow- up with radiation oncology for recommended SBRT of lung, as he felt like, "radiation didn't work before", for laryngeal malignancy and did not want to undergo the same for his lung. -Bronchial washing cytology pending. If negative pulm considering bronch with biopsy -CT abdomen pelvis without contrast revealed findings in the inferior chest redemonstrated, including large right middle lobe neoplastic mass and right pleural effusion without significant change. No clear evidence of mass or m etastatic adenopathy in the abdomen or pelvis. Questionable thickening of the proximal gastric wall, and distal rectal wall versus incomplete distention. CT soft tissue neck without contrast revealed ill-defined left laryngeal mass with mild narrowing of the airway. No visible lymphadenopathy. CT findings and concerns for malignancy were discussed with patient. Patient states he wants to await findings of pleural cytology/workup. And will consider further evaluation and surgical intervention with ENT pending current workup. He is not sure if he wants to proceed with surgery if malignancy is confirmed within the right lung -Patient has upcoming follow-up with Dr. Moreira on 01/09. Will obtain PET CT oupt upon discharge. Will further discuss goals of care and treatment recommendations at scheduled follow up
[2023-12-13] MEDS: BUDESONIDE 1 MG/2 ML NEBU INHALATION SCH (18:20)
--- NOTE | 2023-12-13 19:23 | P.PN ---
Subjective Progress Note Date: 12/13/23 Principal diagnosis: Reason for follow-up is pneumonia Patient is a 58-year-old male past medical history significant for COPD syncope history of laryngeal cancer with radiation and chemotherapy and the patient did have tracheostomy and PEG tube insertion presenting to the ER for evaluation of increasing shortness of breath generalized bodyaches, patient have CT of the chest with evidence of lobular heterogeneous mass with internal cystic and necrotic components centered in the right middle lobe and concern for possible infection. On today's evaluation that is 12/13/2023, the patient continues to be afebrile, the patient is breathing comfortably on trach collar patient denies having any chest pain no worsening cough or sputum production no nausea vomiting no abdominal pain no diarrhea. Patient white count is up to 20.08, creatinine 0.6 cultures currently pending Objective - Vital Signs Vital signs: Vital Signs Temp 97.9 F 12/13/23 07:27 Pulse 92 12/13/23 11:47 Resp 18 12/13/23 11:30 BP 112/67 12/13/23 11:30 Pulse Ox 92 L 12/13/23 11:30 FiO2 60 12/12/23 09:28 Intake & Output 12/12/23 12/13/23 12/13/23 18:59 06:59 18:59 Intake Total 715 1690 Balance 715 1690 Intake: Intake, IV Titration 700 Amount Piperacillin-Tazobactam 3 100 .375 gm In Sodium Chloride 0.9% 100 ml @ 25 mls/hr IVPB Q8HR [facility] Rx# :[id number] Sodium Chloride 0.9% 1, 600 000 ml @ 75 mls/hr IV . [id number] [facility] Rx#:[id number] Oral 120 Tube Feeding 715 780 Other 90 Other: Voiding Method Toilet Toilet - Exam GENERAL DESCRIPTION: Middle-age male up in bed in no distress RESPIRATORY SYSTEM: Unlabored breathing , decreased breath sounds at bases HEART: S1 S2 regular rate and rhythm , ABDOMEN: Soft , no tenderness EXTREMITIES: No edema feet - Labs CBC & Chem 7: 12/13/23 06:19 12/13/23 06:19 Labs: Abnormal Lab Results - Last 24 Hours (Table) 12/10/23 12/13/23 12/13/23 Range/Units 13:01 06:19 06:19 WBC 20.08 H (4.50-10.00) X 10*3/uL RBC 3.70 L (4.40-5.60) X 10*6/uL Hgb 11.1 L (13.0-17.0) g/dL Hct 38.2 L (39.6-50.0) % MCV 103.2 H (80.0-97.0) FL MCHC 29.1 L (32.0-37.0) g/dL Plt Count 697 H (140-440) X 10*3/uL Immature Gran # 0.20 H (0.00-0.04) X 10*3/uL Neutrophils # 18.64 H (1.80-7.70) X 10*3/uL Lymphocytes # 0.35 L (0.90-5.00) X 10*3/uL Sodium 147 H (135-145) mmol/L Carbon Dioxide 32.7 H (21.6-31.8) mmol/L BUN 27.9 H (9.0-27.0) mg/dL BUN/Creatinine Ratio 46.50 H (12.00-20.00) Ratio Glucose 152 H (70-110) mg/dL Fluid Appearance Turbid A (Clear) Microbiology - Last 24 Hours (Table) 12/10/23 17:30 Gram Stain - Final Sputum Sputum Culture - Final 12/10/23 13:01 Gram Stain - Final Bronchoalviolar Lavage - Right Bronchial Washings Culture - Final 12/10/23 13:01 Acid Fast Bacilli Smear - Preliminary Bronchoalviolar Lavage - Right 12/09/23 17:09 Blood Culture - Preliminary Blood 12/09/23 16:40 Blood Culture - Preliminary Blood Assessment and Plan (1) Leukocytosis Current Visit: Yes Status: Acute Code(s): D72.829 - ELEVATED WHITE BLOOD CELL COUNT, UNSPECIFIED SNOMED Code(s): 273431149 (2) Pneumonia Current Visit: Yes Status: Acute Priority: High Code(s): J18.9 - PNEUMONIA, UNSPECIFIED ORGANISM SNOMED Code(s): 715987107 Plan: 1patient presented to hospital with fever increasing shortness of breath and is bringing up some purulent sputum in this patient noticed to have significant normality on the CT of the chest concerning for possible necrotic tumor versus a component of postobstructive pneumonia likely gram-negative 2-sputum culture as well as BAL cultures currently pending 3-patient seem to have some clinical improvement and will continue with the Zosyn while waiting for the culture to finalize to determine his discharge antibiotic 4-worsening leukocytosis likely related to the steroids and will be monitored Dictation was produced using [employer] dictation software. please excuse any grammatical, word or spelling errors. Time with Patient: Less than 30
[2023-12-14 11:06] LABS: HCT 34.6 % (39.6-50.0); HGB 10.3 g/dL (13.0-17.0); MCH 30.3 pg (27.0-32.0); MCHC 29.8 g/dL (32.0-37.0); MCV 101.8 FL (80.0-97.0); Mean Platelet Volume 10.2 FL (9.5-12.2); NRBC Per 100 WBC 0 X 10*3/uL (0.00-0.01); Platelet Count 587 X 10*3/uL (140-440); RDW 14.4 % (11.5-14.5); WBC 21.95 X 10*3/uL (4.50-10.00)
[2023-12-14 11:19] LABS: ALT 138 U/L (10-49); AST 40 U/L (14-35); Albumin 2.7 g/dL (3.8-4.9); Albumin/Globulin Ratio 1.12 Ratio (1.60-3.17); Alkaline Phosphatase 165 U/L (41-126); BUN/Creat Ratio 46.17 Ratio (12.00-20.00); Blood Urea Nitrogen 27.7 mg/dL (9.0-27.0); Calcium 8.8 mg/dL (8.7-10.3); Carbon Dioxide 31.7 mmol/L (21.6-31.8); Chloride 106 mmol/L (96-109); Globulin 2.4 g/dL (1.6-3.3); Glucose 166 mg/dL (70-110); Potassium 5.5 mmol/L (3.5-5.5); Sodium 147 mmol/L (135-145); Total Bilirubin <0.2 mg/dL (0.3-1.2); Total Protein 5.1 g/dL (6.2-8.2)
--- NOTE | 2023-12-14 12:33 | P.PN ---
Subjective Progress Note Date: 12/14/23 This is a 58-year-old male patient with a known history of laryngeal cancer status post tracheostomy tube insertion, status post PEG tube insertion, chronic and ongoing tobacco dependence, hypothyroidism, Graves' disease, diverticulosis. PET scan from September 2023 revealed persistent uptake in the posterior lateral right cord level compatible with neoplasm, there was a new lung nodule identified with elevated SUV suspicious for neoplasm in the right lower lobe. He is being followed by both medical and radiation oncology. He presented here to the emergency room yesterday with complaints of increasing shortness of breath, chronic back pain and generalized body aches and pains. X-ray reveals opacification of the right lower lobe. CT scan of the chest reveals lobular heterogenous mass with internal cystic and necrotic components centered in the right middle lobe. This is favored to represent interval progression the patient's known malignancy with superimposed infection not excluded. And emphysema changes noted. Small right pleural effusion. White count 22.1. Hemoglobin 11.4. Platelets 655. Sodium 140. Potassium 4.6. Bicarb 29. BUN 33. Creatinine 0.8. Viral screen negative. He is seen today in consultation on the regular medical floor. He is sitting up in bed. Awake and alert in no acute distress. He is maintaining O2 saturations in the mid 90s on 28% FiO2 via trach collar. He is afebrile. The patient is seen today December 11, 2023 in follow-up on the regular medical floor. He is currently sitting up in bed. Awake and alert in no acute distress. He is maintaining good O2 saturations in the 90s on 60% FiO2 via trach collar. CT scan of the abdomen and pelvis revealed large right middle lobe neoplastic mass and right pleural effusion. No clear evidence of mass or metastatic adenopathy in the abdomen or pelvis. CT scan of the neck reveals an ill-defined left laryngeal mass. No visible lymphadenopathy. Cultures revealed no growth. White count 15.3. Hemoglobin 10.8. Platelets 625. Sodium 141. Potassium 4.7. Bicarb 31. BUN 33. Creatinine 0.7. Glucose 224. Bronchial wash cultures and cytology pending. Ari on bronchodilators, steroids, Zosyn. The patient is seen today December 12, 2023 in follow-up on the regular medical floor. He is awake and alert in no acute distress. He is maintaining O2 saturations in the high 90s on 50% FiO2 via trach collar. He is afebrile. Hemodynamically stable. White count 17.8. Hemoglobin 9.3. Platelets 608. Sodium 145. Potassium 5.2. Bicarb 32. BUN 31. Creatinine 0.6. Glucose 172. Bronchial wash fluid revealed no growth. Cytology pending. He is continue on DuoNeb ventilations, Solu-Medrol. His antibiotics in the form of Zosyn. The patient is seen today December 13, 2023 in follow-up on the regular medical floor. He is currently sitting up at the bedside. Awake and alert in no acute distress. He is maintaining O2 saturations in the 90s on 40% FiO2 via trach collar. He has normal saline at 75 MLS per hour. He has Jevity PEG tube feedings at 65 MLS per hour. Chest x-ray reveals overall stable findings without evidence of an acute cardiopulmonary process. Opacities of the right mid to lower lung zone reveals loculated effusion. Bronchial wash cytology results pending. Cultures revealed no growth. White count 20.0. Hemoglobin 11.1. Platelets 697. Sodium 147. Potassium 5.4. Bicarb 33. BUN 28. Creatinine 0.6. Glucose 152. He is continued on bronchodilators and steroids. Remains on Zosyn. The patient is seen today December 14, 2023 in follow-up on the regular medical floor. He is sitting up in bed. Awake and alert in no acute distress. He is maintaining O2 saturations in the 90s on 50% FiO2 via trach collar. He remains on Zosyn. He is being nourished with Jevity at 65 MLS per hour. Bronchoalveolar lavage cultures revealed no growth. Sputum culture revealed no growth. Blood cultures revealed no growth. White count 21.9. Hemoglobin 10.3. Sodium 147. Potassium 5.5. Bicarb 32. BUN 28. Creatinine 0.6. Glucose 138. Procalcitonin 0.16. He remains on Zosyn and bronchodilators along with Solu- Medrol. Cytology from the bronchial wash is still pending. Objective - Vital Signs Vital signs: Vital Signs Temp 97.4 F L 12/14/23 07:20 Pulse 62 12/14/23 11:52 Resp 16 12/14/23 07:20 BP 109/68 12/14/23 07:20 Pulse Ox 94 L 12/14/23 07:20 FiO2 50 12/14/23 08:16 Intake & Output 12/13/23 12/14/23 12/14/23 18:59 06:59 18:59 Weight 60.82 kg 61.4 kg - Exam GENERAL EXAM: Alert, pleasant 58-year-old male patient, on 50% FiO2 via trach collar, in no apparent distress. HEAD: Normocephalic. EYES: Normal reaction of pupils, equal size. NOSE: Clear with pink turbinates. THROAT: No erythema or exudates. NECK: Tracheostomy tube secured in place. No masses, no JVD. CHEST: No chest wall deformity. LUNGS: Equal air entry with crackles of the right lung base. CVS: S1 and S2 normal with no audible murmur, regular rhythm. ABDOMEN: No hepatosplenomegaly, normal bowel sounds, no guarding or rigidity. SPINE: No scoliosis or deformity SKIN: No rashes CENTRAL NERVOUS SYSTEM: No focal deficits, tone is normal in all 4 extremities. EXTREMITIES: There is no peripheral edema. No clubbing, no cyanosis. Peripheral pulses are intact. - Labs CBC & Chem 7: 12/14/23 07:48 12/14/23 07:48 Labs: Abnormal Lab Results - Last 24 Hours (Table) 12/14/23 12/14/23 12/14/23 Range/Units 07:48 07:48 07:54 WBC 21.95 H (4.50-10.00) X 10*3/uL RBC 3.40 L (4.40-5.60) X 10*6/uL Hgb 10.3 L (13.0-17.0) g/dL Hct 34.6 L (39.6-50.0) % MCV 101.8 H (80.0-97.0) FL MCHC 29.8 L (32.0-37.0) g/dL Plt Count 587 H (140-440) X 10*3/uL Sodium 147 H (135-145) mmol/L BUN 27.7 H (9.0-27.0) mg/dL BUN/Creatinine Ratio 46.17 H (12.00-20.00) Ratio Glucose 166 H (70-110) mg/dL Total Bilirubin <0.2 L (0.3-1.2) mg/dL AST 40 H (14-35) U/L ALT 138 H (10-49) U/L Alkaline Phosphatase 165 H (41-126) U/L Total Protein 5.1 L (6.2-8.2) g/dL Albumin 2.7 L (3.8-4.9) g/dL Albumin/Globulin Ratio 1.12 L (1.60-3.17) Ratio Procalcitonin 0.16 H (0.02-0.09) ng/mL Microbiology - Last 24 Hours (Table) 12/10/23 17:30 Gram Stain - Final Sputum Sputum Culture - Final 12/10/23 13:01 Gram Stain - Final Bronchoalviolar Lavage - Right Bronchial Washings Culture - Final 12/10/23 13:01 Acid Fast Bacilli Smear - Preliminary Bronchoalviolar Lavage - Right Assessment and Plan Assessment: Acute hypoxic respiratory failure secondary to right lower lung opacification and possible postobstructive pneumonia. CT scan of the chest reveals lobular heterogenous mass with internal cystic and necrotic components centered in the right middle lobe. This is favored to represent interval progression the patient's known malignancy with superimposed infection not excluded. Emphysema changes noted. Small right pleural effusion. Status post bronchoscopy with BAL on December 10, 2023. Follow-up CT scan of the abdomen reveals clearer evidence of a large right middle lobe neoplastic mass and right pleural effusion. May require transbronchial biopsies if bronchial wash cytology negative. 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 PET scan from September 2023 revealed persistent uptake in the posterior lateral right cord level compatible with neoplasm, there was a new lung nodule identified with elevated SUV suspicious for neoplasm in the right lower lobe. CT scan of the neck from 12/10/2023 is reveals an ill- defined left laryngeal mass. No visible lymphadenopathy Dysphagia secondary to above status post PEG tube placement in May 2023 Hypothyroidism Graves' disease Chronic and ongoing tobacco dependence Obstructive pulmonary disease Plan: The patient was seen and evaluated Labs and medications reviewed Continue Zosyn, bronchodilators, steroid Bronchial wash cytology still pending If negative may require lung biopsy This patient was seen independently by the pulmonary nurse practitioner addressing pulmonary issues I have personally seen and examined the patient, performed the documentation and the assessment and plan as written. Number of minutes spent on the visit: 25.
[2023-12-14 12:53] LABS: Basophils # (A) 0.04 X 10*3/uL (0.00-0.10); Basophils % (A) 0.2 %; Eosinophils # (A) 0 X 10*3/uL (0.04-0.35); Eosinophils % (A) 0 %; Lymphocytes # (A) 0.33 X 10*3/uL (0.90-5.00); Lymphocytes % (A) 1.5 %; Monocytes # (A) 0.32 X 10*3/uL (0.20-1.00); Monocytes % (A) 1.5 %; Neutrophils # (A) 21.02 X 10*3/uL (1.80-7.70); Neutrophils % (A) 95.7 %
--- NOTE | 2023-12-14 15:42 | P.PN ---
Subjective Progress Note Date: 12/14/23 Principal diagnosis: Reason for follow-up is pneumonia Patient is a 58-year-old male past medical history significant for COPD syncope history of laryngeal cancer with radiation and chemotherapy and the patient did have tracheostomy and PEG tube insertion presenting to the ER for evaluation of increasing shortness of breath generalized bodyaches, patient have CT of the chest with evidence of lobular heterogeneous mass with internal cystic and necrotic components centered in the right middle lobe and concern for possible infection. On today's evaluation that is 12/14/2023, Patient is afebrile patient is currently on trach collar and denies having any shortness of breath, the patient denies any chest pain cough has decreased intensity less productive, the patient denies any nausea vomiting did not have any abdominal pain and no diarrhea. Patient white count is 21.95, creatinine 0.6 sputum and BAL cultures so far negative Objective - Vital Signs Vital signs: Vital Signs Temp 97.5 F L 12/14/23 11:44 Pulse 64 12/14/23 15:19 Resp 18 12/14/23 11:44 BP 95/54 12/14/23 11:44 Pulse Ox 98 12/14/23 11:44 FiO2 50 12/14/23 08:16 Intake & Output 12/13/23 12/14/23 12/14/23 18:59 06:59 18:59 Weight 60.82 kg 61.4 kg - Exam GENERAL DESCRIPTION: Middle-age male up in bed in no distress RESPIRATORY SYSTEM: Unlabored breathing , decreased breath sounds at bases HEART: S1 S2 regular rate and rhythm , ABDOMEN: Soft , no tenderness EXTREMITIES: No edema feet - Labs CBC & Chem 7: 12/14/23 07:48 12/14/23 07:48 Labs: Abnormal Lab Results - Last 24 Hours (Table) 12/14/23 12/14/23 12/14/23 Range/Units 07:48 07:48 07:54 WBC 21.95 H (4.50-10.00) X 10*3/uL RBC 3.40 L (4.40-5.60) X 10*6/uL Hgb 10.3 L (13.0-17.0) g/dL Hct 34.6 L (39.6-50.0) % MCV 101.8 H (80.0-97.0) FL MCHC 29.8 L (32.0-37.0) g/dL Plt Count 587 H (140-440) X 10*3/uL Immature Gran # 0.24 H (0.00-0.04) X 10*3/uL Neutrophils # 21.02 H (1.80-7.70) X 10*3/uL Lymphocytes # 0.33 L (0.90-5.00) X 10*3/uL Eosinophils # 0 L (0.04-0.35) X 10*3/uL Sodium 147 H (135-145) mmol/L BUN 27.7 H (9.0-27.0) mg/dL BUN/Creatinine Ratio 46.17 H (12.00-20.00) Ratio Glucose 166 H (70-110) mg/dL Total Bilirubin <0.2 L (0.3-1.2) mg/dL AST 40 H (14-35) U/L ALT 138 H (10-49) U/L Alkaline Phosphatase 165 H (41-126) U/L Total Protein 5.1 L (6.2-8.2) g/dL Albumin 2.7 L (3.8-4.9) g/dL Albumin/Globulin Ratio 1.12 L (1.60-3.17) Ratio Procalcitonin 0.16 H (0.02-0.09) ng/mL Assessment and Plan (1) Leukocytosis Current Visit: Yes Status: Acute Code(s): D72.829 - ELEVATED WHITE BLOOD CELL COUNT, UNSPECIFIED SNOMED Code(s): 778756452 (2) Pneumonia Current Visit: Yes Status: Acute Priority: High Code(s): J18.9 - PNEUMONIA, UNSPECIFIED ORGANISM SNOMED Code(s): 740334798 Plan: 1patient presented to hospital with fever increasing shortness of breath and is bringing up some purulent sputum in this patient noticed to have significant normality on the CT of the chest concerning for possible necrotic tumor versus a component of postobstructive pneumonia likely gram-negative 2-sputum culture as well as BAL cultures so far negative 3-patient seem to have some clinical improvement and will continue with the Zosyn however with a culture negative and resistant pathogen we will consider Augmentin on discharge 4-worsening leukocytosis likely related to the steroids and will be monitored Dictation was produced using [employer] dictation software. please excuse any grammatical, word or spelling errors. Time with Patient: Less than 30
--- NOTE | 2023-12-14 16:09 | P.PN ---
Subjective Progress Note Date: 12/14/23 No acute events. Patient resting comfortably in bed. Patient reports right sided chest pain with improvement with pain medications. Reports improvement in breathing since admission. Sputum culture negative, continues on IV antibiotics, steroids and bronchodilators. Cytology still pending. Objective - Vital Signs Vital signs: Vital Signs Temp 97.5 F L 12/14/23 11:44 Pulse 64 12/14/23 15:06 Resp 18 12/14/23 11:44 BP 95/54 12/14/23 11:44 Pulse Ox 98 12/14/23 11:44 FiO2 50 12/14/23 08:16 Intake & Output 12/13/23 12/14/23 12/14/23 18:59 06:59 18:59 Weight 60.82 kg 61.4 kg - Constitutional General appearance: Present: no acute distress - EENT Eyes: Present: anicteric sclerae, EOMI ENT: Present: hearing grossly normal - Respiratory Details: Breathing is even and unlabored - Cardiovascular Details: Skin warm and dry - Integumentary Integumentary: Absent: cyanotic - Musculoskeletal Musculoskeletal: Present: strength equal bilaterally - Psychiatric Psychiatric: Present: A&O x's 3 - Labs CBC & Chem 7: 12/14/23 07:48 12/14/23 07:48 Labs: Abnormal Lab Results - Last 24 Hours (Table) 12/14/23 12/14/23 12/14/23 Range/Units 07:48 07:48 07:54 WBC 21.95 H (4.50-10.00) X 10*3/uL RBC 3.40 L (4.40-5.60) X 10*6/uL Hgb 10.3 L (13.0-17.0) g/dL Hct 34.6 L (39.6-50.0) % MCV 101.8 H (80.0-97.0) FL MCHC 29.8 L (32.0-37.0) g/dL Plt Count 587 H (140-440) X 10*3/uL Immature Gran # 0.24 H (0.00-0.04) X 10*3/uL Neutrophils # 21.02 H (1.80-7.70) X 10*3/uL Lymphocytes # 0.33 L (0.90-5.00) X 10*3/uL Eosinophils # 0 L (0.04-0.35) X 10*3/uL Sodium 147 H (135-145) mmol/L BUN 27.7 H (9.0-27.0) mg/dL BUN/Creatinine Ratio 46.17 H (12.00-20.00) Ratio Glucose 166 H (70-110) mg/dL Total Bilirubin <0.2 L (0.3-1.2) mg/dL AST 40 H (14-35) U/L ALT 138 H (10-49) U/L Alkaline Phosphatase 165 H (41-126) U/L Total Protein 5.1 L (6.2-8.2) g/dL Albumin 2.7 L (3.8-4.9) g/dL Albumin/Globulin Ratio 1.12 L (1.60-3.17) Ratio Procalcitonin 0.16 H (0.02-0.09) ng/mL Assessment and Plan (1) Squamous cell carcinoma of head and neck Current Visit: Yes Status: Acute Priority: High Code(s): C44.42 - SQUAMOUS CELL CARCINOMA OF SKIN OF SCALP AND NECK SNOMED Code(s): 279951519 (2) Cancer associated pain Current Visit: Yes Status: Acute Priority: High Code(s): G89.3 - NEOPLASM RELATED PAIN (ACUTE) (CHRONIC) SNOMED Code(s): 25762567207324 (3) Pneumonia Current Visit: Yes Status: Acute Priority: High Code(s): J18.9 - PNEUMONIA, UNSPECIFIED ORGANISM SNOMED Code(s): 702358349 Plan: Pneumonia: Presented to the with complaints of shortness of breath, fever and right-sided chest pain and throat pain. Patient states he has been having increased sputum production and had a fever of 101.0. Denies any recent hemoptysis. -Upon admission chest x-ray revealed diffuse opacification of the right lower lung. CT chest with contrast showed lobular heterogeneous mass with internal c ystic and necrotic component centered in the right middle lobe, in the region of prior FDG avid lung nodule. Favored to represent interval progression of the patient's known malignant disease, with superimposed infection not excluded. Small right pleural effusion. And emphysematous changes of the lungs. -Patient underwent bronchoscopy with BAL with Dr. Us with findings of mucous plug in the right middle lobe and right lower lobe bronchus. 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 PET scan was ordered by radiation oncology. It appears to be some uptake in the right vocal cord, and also in an opacity in the right lung. Patient was advised that these could be nonspecific and represent areas of inflammation. We will await evaluation and review of the scan by radiation oncology. Plan was to f/u in [address] scans if PET scan findings were not not found to be indicative of residual or new malignancy on upcoming evaluation by radiation oncology and ENT. Patient followed up with ENT and had biopsy of right vocal cord lesion on 11/11/2023 which was positive for malignancy. He was recommended for laryngectomy, however patient decided that he did not want to go through with surgery. He also states that he did not follow- up with radiation oncology for recommended SBRT of lung, as he felt like, "radiation didn't work before", for laryngeal malignancy and did not want to undergo the same for his lung. -Bronchial washing cytology pending. If negative pulm considering bronch with biopsy -CT abdomen pelvis without contrast revealed findings in the inferior chest redemonstrated, including large right middle lobe neoplastic mass and right pleural effusion without significant change. No clear evidence of mass or metastatic adenopathy in the abdomen or pelvis. Questionable thickening of the proximal gastric wall, and distal rectal wall versus incomplete distention. CT soft tissue neck without contrast revealed ill-defined left laryngeal mass with mild narrowing of the airway. No visible lymphadenopathy. CT findings and concerns for malignancy were discussed with patient, in the larynx and right lung. Discussed that concern is that lung findings is metastatic disease vs new primary and will have to awaiting pending cytology, but are still recommending surgical resection of laryngeal mass and SBRT of right lung. Patient is wanting to await findings of cytology/workup, and will consider further evaluation and surgical intervention with ENT pending current workup. He has stated that he is unsure if he wants to proceed with surgery if malignancy is confirmed within the right lung. -Patient has upcoming follow-up with Dr. Moreira on 01/09. Will obtain PET CT outpt upon discharge. Will further discuss goals of care and treatment recommendations at scheduled follow up attests: I have performed H&P and developed impression and plan of care for patient, discussed with dictator. I agree with dictated note, documented as a scribe
[2023-12-14] MEDS ORDERED: DEXTROSE 50% SYRINGE 50 ML IVP PRN ×2 (22:28)
--- NOTE | 2023-12-14 22:35 | P.PN ---
Subjective Progress Note Date: 12/14/23 Patient is evaluated today on the medical floor. He remains on trach collar with no significant complaints of shortness of breath. Patient continues with cough and significant amount of sputum production. He is status post bronchoscopy for a right midlung mass with suspicion for necrotic tumor. Pathology pending. Viral panel negative. White blood cell count remains elevated at 21.95, hemoglobin 10.3. Sodium level 147, potassium 5.5, BUN 27.7, creatinine 0.6. LFTs elevated. Procalcitonin level 0.16. Continues on IV zosyn. Review of Systems Constitutional: Denied any fatigue denied any fever. Cardio vascular: denied any chest pain, palpitations Gastrointestinal: denied any nausea, vomiting, diarrhea Pulmonary: Denied any shortness of breath cough Neurologic denied any new focal deficits All inpatient medications were reviewed and appropriate changes in these medications as dictated in the interval history and assessment and plan. PHYSICAL EXAMINATION: GENERAL: The patient is alert and oriented x3, not in any acute distress. Well developed, well nourished. HEENT: Pupils are round and equally reacting to light. EOMI. No scleral icterus. No conjunctival pallor. Normocephalic, atraumatic. No pharyngeal erythema. No thyromegaly. CARDIOVASCULAR: S1 and S2 present. No murmurs, rubs, or gallops. PULMONARY: Scattered ronchi ABDOMEN: Soft, nontender, nondistended, normoactive bowel sounds. No palpable organomegaly. MUSCULOSKELETAL: No joint swelling or deformity. EXTREMITIES: No cyanosis, clubbing, or pedal edema. NEUROLOGICAL: Gross neurological examination did not reveal any focal deficits. SKIN: No rashes. Assessment and Plan Chronic obstructive pulmonary disease with acute exacerbation continues on IV solumedrol on bronchodilators and inhaled steroids Necrotic tumor vs. postobstructive pneumonia pending pathology. Leukocytosis component of steroid induced repeat labs in the AM Left laryngeal mass on CT scan with history of laryngeal cancer status post trach and PEG tube. Diabetes Mellitus type 2 continue with accuchecks ACHS and sliding scale insulin Hx of Graves Disease Hx of smoking GI prophylaxis DVT prophylaxis Full Code The impression and plan of care has been dictated by Jessie Rodriguez Nurse Practitioner as directed. Dr. Nithin MD I have performed a history and physical examination and medical decision making of this patient, discussed the same with the dictator, and agree with the dictators assessment and plan as written, documented as a scribe. Based on total visit time, I have performed more than 50% of this visit. Objective - Vital Signs Vital signs: Vital Signs Temp 97.6 F 12/14/23 20:21 Pulse 68 12/14/23 20:21 Resp 16 12/14/23 20:21 BP 98/59 12/14/23 20:21 Pulse Ox 94 L 12/14/23 20:21 FiO2 50 12/14/23 08:16 Intake & Output 12/14/23 12/14/23 12/15/23 06:59 18:59 06:59 Intake Total 95 Balance 95 Weight 61.4 kg Intake: Other 95 - Labs CBC & Chem 7: 12/14/23 07:48 12/14/23 07:48 Labs: Abnormal Lab Results - Last 24 Hours (Table) 12/14/23 12/14/23 12/14/23 Range/Units 07:48 07:48 07:54 WBC 21.95 H (4.50-10.00) X 10*3/uL RBC 3.40 L (4.40-5.60) X 10*6/uL Hgb 10.3 L (13.0-17.0) g/dL Hct 34.6 L (39.6-50.0) % MCV 101.8 H (80.0-97.0) FL MCHC 29.8 L (32.0-37.0) g/dL Plt Count 587 H (140-440) X 10*3/uL Immature Gran # 0.24 H (0.00-0.04) X 10*3/uL Neutrophils # 21.02 H (1.80-7.70) X 10*3/uL Lymphocytes # 0.33 L (0.90-5.00) X 10*3/uL Eosinophils # 0 L (0.04-0.35) X 10*3/uL Sodium 147 H (135-145) mmol/L BUN 27.7 H (9.0-27.0) mg/dL BUN/Creatinine Ratio 46.17 H (12.00-20.00) Ratio Glucose 166 H (70-110) mg/dL Total Bilirubin <0.2 L (0.3-1.2) mg/dL AST 40 H (14-35) U/L ALT 138 H (10-49) U/L Alkaline Phosphatase 165 H (41-126) U/L Total Protein 5.1 L (6.2-8.2) g/dL Albumin 2.7 L (3.8-4.9) g/dL Albumin/Globulin Ratio 1.12 L (1.60-3.17) Ratio Procalcitonin 0.16 H (0.02-0.09) ng/mL Assessment and Plan Time with Patient: Less than 30
[2023-12-15 08:09] LABS: Glucose,Whole Blood 105 mg/dL (70-110)
[2023-12-15] MEDS: INSULIN ASPART (NovoLOG) 100 UNIT/ML VIAL SQ SCH (08:15)
[2023-12-15 11:12] LABS: Basophils # (A) 0.03 X 10*3/uL (0.00-0.10); Basophils % (A) 0.2 %; Eosinophils # (A) 0 X 10*3/uL (0.04-0.35); Eosinophils % (A) 0 %; HCT 32.6 % (39.6-50.0); HGB 9.6 g/dL (13.0-17.0); Lymphocytes # (A) 0.41 X 10*3/uL (0.90-5.00); Lymphocytes % (A) 2.1 %; MCH 29.5 pg (27.0-32.0); MCHC 29.4 g/dL (32.0-37.0); MCV 100.3 FL (80.0-97.0); Mean Platelet Volume 10.1 FL (9.5-12.2); Monocytes # (A) 0.45 X 10*3/uL (0.20-1.00); Monocytes % (A) 2.3 %; NRBC Per 100 WBC 0 X 10*3/uL (0.00-0.01); Neutrophils % (A) 94.1 %; Platelet Count 554 X 10*3/uL (140-440); RBC 3.25 X 10*6/uL (4.40-5.60); RDW 14.6 % (11.5-14.5); WBC 19.94 X 10*3/uL (4.50-10.00)
[2023-12-15 11:17] VITALS: BMI 20.2
[2023-12-15 11:27] LABS: ALT 105 U/L (10-49); AST 25 U/L (14-35); Albumin 2.5 g/dL (3.8-4.9); Albumin/Globulin Ratio 1.14 Ratio (1.60-3.17); Alkaline Phosphatase 130 U/L (41-126); BUN/Creat Ratio 41.86 Ratio (12.00-20.00); Blood Urea Nitrogen 29.3 mg/dL (9.0-27.0); Calcium 8.7 mg/dL (8.7-10.3); Carbon Dioxide 32.1 mmol/L (21.6-31.8); Chloride 110 mmol/L (96-109); Globulin 2.2 g/dL (1.6-3.3); Glucose 114 mg/dL (70-110); Potassium 5.6 mmol/L (3.5-5.5); Sodium 150 mmol/L (135-145); Total Bilirubin <0.2 mg/dL (0.3-1.2); Total Protein 4.7 g/dL (6.2-8.2)
--- NOTE | 2023-12-15 11:30 | CDI ---
Date: 12/15/2023 From: Nel Crawford Phone: [phone] Admit Date: 12/09/2023 04:18:00 PM Patient Name: Giorgio Alva Visit Number: [id number] Discharge Date: ATTENTION: The Clinical Documentation Specialists (CDI) and [facility] Coding Staff appreciate your assistance in clarifying documentation. Please respond to the clarification below the line at the bottom and electronically sign. The CDI & [facility] Coding staff will review the response and follow-up if needed. Please note: Queries are made part of the Legal Health Record. If you have any questions, please contact the author of this message via ITS. Dr. Ronny Johns; The Registered Dietitian assessment on 12/14 indicates this patient meets criteria for acute severe malnutrition. Based on this information and the findings below, is there an additional diagnosis that is clinically appropriate for this patient? History/Risk Factors: COPD, Graves disease, Laryngeal cancer with tracheostomy, who presents with SOB, right sided chest pain Clinical Indicators: 12/14 RD Assessment, Nutrition Diagnosis: "Malnutrition, acute, severe, related to acute infection causing decreased intake of EN, as evidenced by severe 11% weight loss x 1 month, muscle wasting to temporal region." 12/14 Patient weight: 62.1 kg Patient height: 5ft 9in BMI: 20.2 12/08-12/10, 12/13 Total Protein: 6.4, 6.1, 5.6, 5.1 Treatment: Consult RD, Jevity Tube feeding Strict I&O Is there an additional diagnosis that is clinically appropriate for this patient? [x ] Severe Protein-Calorie Malnutrition [ ] No additional diagnosis/Not clinically significant [ ] Other condition, please specify [ ] Unable to Determine MTDD
--- NOTE | 2023-12-15 11:46 | P.PN ---
Subjective Progress Note Date: 12/15/23 This is a 58-year-old male patient with a known history of laryngeal cancer status post tracheostomy tube insertion, status post PEG tube insertion, chronic and ongoing tobacco dependence, hypothyroidism, Graves' disease, diverticulosis. PET scan from September 2023 revealed persistent uptake in the posterior lateral right cord level compatible with neoplasm, there was a new lung nodule identified with elevated SUV suspicious for neoplasm in the right lower lobe. He is being followed by both medical and radiation oncology. He presented here to the emergency room yesterday with complaints of increasing shortness of breath, chronic back pain and generalized body aches and pains. X-ray reveals opacification of the right lower lobe. CT scan of the chest reveals lobular heterogenous mass with internal cystic and necrotic components centered in the right middle lobe. This is favored to represent interval progression the patient's known malignancy with superimposed infection not excluded. And emphysema changes noted. Small right pleural effusion. White count 22.1. Hemoglobin 11.4. Platelets 655. Sodium 140. Potassium 4.6. Bicarb 29. BUN 33. Creatinine 0.8. Viral screen negative. He is seen today in consultation on the regular medical floor. He is sitting up in bed. Awake and alert in no acute distress. He is maintaining O2 saturations in the mid 90s on 28% FiO2 via trach collar. He is afebrile. The patient is seen today December 11, 2023 in follow-up on the regular medical floor. He is currently sitting up in bed. Awake and alert in no acute distress. He is maintaining good O2 saturations in the 90s on 60% FiO2 via trach collar. CT scan of the abdomen and pelvis revealed large right middle lobe neoplastic mass and right pleural effusion. No clear evidence of mass or metastatic adenopathy in the abdomen or pelvis. CT scan of the neck reveals an ill-defined left laryngeal mass. No visible lymphadenopathy. Cultures revealed no growth. White count 15.3. Hemoglobin 10.8. Platelets 625. Sodium 141. Potassium 4.7. Bicarb 31. BUN 33. Creatinine 0.7. Glucose 224. Bronchial wash cultures and cytology pending. Ari on bronchodilators, steroids, Zosyn. The patient is seen today December 12, 2023 in follow-up on the regular medical floor. He is awake and alert in no acute distress. He is maintaining O2 saturations in the high 90s on 50% FiO2 via trach collar. He is afebrile. Hemodynamically stable. White count 17.8. Hemoglobin 9.3. Platelets 608. Sodium 145. Potassium 5.2. Bicarb 32. BUN 31. Creatinine 0.6. Glucose 172. Bronchial wash fluid revealed no growth. Cytology pending. He is continue on DuoNeb ventilations, Solu-Medrol. His antibiotics in the form of Zosyn. The patient is seen today December 13, 2023 in follow-up on the regular medical floor. He is currently sitting up at the bedside. Awake and alert in no acute distress. He is maintaining O2 saturations in the 90s on 40% FiO2 via trach collar. He has normal saline at 75 MLS per hour. He has Jevity PEG tube feedings at 65 MLS per hour. Chest x-ray reveals overall stable findings without evidence of an acute cardiopulmonary process. Opacities of the right mid to lower lung zone reveals loculated effusion. Bronchial wash cytology results pending. Cultures revealed no growth. White count 20.0. Hemoglobin 11.1. Platelets 697. Sodium 147. Potassium 5.4. Bicarb 33. BUN 28. Creatinine 0.6. Glucose 152. He is continued on bronchodilators and steroids. Remains on Zosyn. The patient is seen today December 14, 2023 in follow-up on the regular medical floor. He is sitting up in bed. Awake and alert in no acute distress. He is maintaining O2 saturations in the 90s on 50% FiO2 via trach collar. He remains on Zosyn. He is being nourished with Jevity at 65 MLS per hour. Bronchoalveolar lavage cultures revealed no growth. Sputum culture revealed no growth. Blood cultures revealed no growth. White count 21.9. Hemoglobin 10.3. Sodium 147. Potassium 5.5. Bicarb 32. BUN 28. Creatinine 0.6. Glucose 138. Procalcitonin 0.16. He remains on Zosyn and bronchodilators along with Solu- Medrol. Cytology from the bronchial wash is still pending. The patient is seen today December 15, 2023 in follow-up on the regular medical floor. He is awake and alert in no acute distress. Sitting up in bed. Denies any worsening shortness of breath, cough or congestion. Previous maintaining O2 saturations in the 90s on 35% FiO2 via trach collar. Count 19.9. Hemoglobin 9.6. Platelets 554. Sodium 150. Potassium 5.6. Bicarb 32. BUN 29. Creatinine 0.7. Glucose 114. Calcitonin 0.16. Bronchial wash pathology revealed no evidence of malignancy. He remains on Zosyn, bronchodilators and steroids. Objective - Vital Signs Vital signs: Vital Signs Temp 97.6 F 12/15/23 07:31 Pulse 65 12/15/23 08:34 Resp 16 12/15/23 09:51 BP 95/55 12/15/23 07:31 Pulse Ox 94 L 12/15/23 08:24 FiO2 35 12/15/23 08:24 Intake & Output 12/14/23 12/15/23 12/15/23 18:59 06:59 18:59 Intake Total 95 Balance 95 Weight 62.1 kg 62.1 kg Intake: Other 95 Other: Voiding Method Toilet - Exam GENERAL EXAM: Alert, 58-year-old male patient, sitting up in bed, on 35% FiO2 via trach collar, in no apparent distress. HEAD: Normocephalic. EYES: Normal reaction of pupils, equal size. NOSE: Clear with pink turbinates. THROAT: No erythema or exudates. NECK: Tracheostomy tube secured in place. No masses, no JVD. CHEST: No chest wall deformity. LUNGS: Equal air entry with crackles of the right lung base. CVS: S1 and S2 normal with no audible murmur, regular rhythm. ABDOMEN: No hepatosplenomegaly, normal bowel sounds, no guarding or rigidity. SPINE: No scoliosis or deformity SKIN: No rashes CENTRAL NERVOUS SYSTEM: No focal deficits, tone is normal in all 4 extremities. EXTREMITIES: There is no peripheral edema. No clubbing, no cyanosis. Peripheral pulses are intact. - Labs CBC & Chem 7: 12/15/23 06:51 12/15/23 06:51 Labs: Abnormal Lab Results - Last 24 Hours (Table) 12/14/23 12/15/23 12/15/23 Range/Units 07:48 06:51 06:51 WBC 19.94 H (4.50-10.00) X 10*3/uL RBC 3.25 L (4.40-5.60) X 10*6/uL Hgb 9.6 L (13.0-17.0) g/dL Hct 32.6 L (39.6-50.0) % MCV 100.3 H (80.0-97.0) FL MCHC 29.4 L (32.0-37.0) g/dL RDW 14.6 H (11.5-14.5) % Plt Count 554 H (140-440) X 10*3/uL Immature Gran # 0.24 H 0.25 H (0.00-0.04) X 10*3/uL Neutrophils # 21.02 H 18.80 H (1.80-7.70) X 10*3/uL Lymphocytes # 0.33 L 0.41 L (0.90-5.00) X 10*3/uL Eosinophils # 0 L 0 L (0.04-0.35) X 10*3/uL Sodium 150 H (135-145) mmol/L Potassium 5.6 H (3.5-5.5) mmol/L Chloride 110 H (96-109) mmol/L Carbon Dioxide 32.1 H (21.6-31.8) mmol/L BUN 29.3 H (9.0-27.0) mg/dL BUN/Creatinine Ratio 41.86 H (12.00-20.00) Ratio Glucose 114 H (70-110) mg/dL Hemoglobin A1c (<=6.0) % Total Bilirubin <0.2 L (0.3-1.2) mg/dL ALT 105 H (10-49) U/L Alkaline Phosphatase 130 H (41-126) U/L Total Protein 4.7 L (6.2-8.2) g/dL Albumin 2.5 L (3.8-4.9) g/dL Albumin/Globulin Ratio 1.14 L (1.60-3.17) Ratio // Range/Units 06:51 WBC (4.50-10.00) X 10*3/uL RBC (4.40-5.60) X 10*6/uL Hgb (13.0-17.0) g/dL Hct (39.6-50.0) % MCV (80.0-97.0) FL MCHC (32.0-37.0) g/dL RDW (11.5-14.5) % Plt Count (140-440) X 10*3/uL Immature Gran # (0.00-0.04) X 10*3/uL Neutrophils # (1.80-7.70) X 10*3/uL Lymphocytes # (0.90-5.00) X 10*3/uL Eosinophils # (0.04-0.35) X 10*3/uL Sodium (135-145) mmol/L Potassium (3.5-5.5) mmol/L Chloride (96-109) mmol/L Carbon Dioxide (21.6-31.8) mmol/L BUN (9.0-27.0) mg/dL BUN/Creatinine Ratio (12.00-20.00) Ratio Glucose (70-110) mg/dL Hemoglobin A1c 6.9 H (<=6.0) % Total Bilirubin (0.3-1.2) mg/dL ALT (10-49) U/L Alkaline Phosphatase (41-126) U/L Total Protein (6.2-8.2) g/dL Albumin (3.8-4.9) g/dL Albumin/Globulin Ratio (1.60-3.17) Ratio Microbiology - Last 24 Hours (Table) 12/09/23 17:09 Blood Culture - Final Blood 12/09/23 16:40 Blood Culture - Final Blood Assessment and Plan Assessment: Acute hypoxic respiratory failure secondary to right lower lung opacification and possible postobstructive pneumonia. CT scan of the chest reveals lobular heterogenous mass with internal cystic and necrotic components centered in the right middle lobe. This is favored to represent interval progression the patient's known malignancy with superimposed infection not excluded. Emphysema changes noted. Small right pleural effusion. Status post bronchoscopy with BAL on December 10, 2023. Follow-up CT scan of the abdomen reveals clearer evidence of a large right middle lobe neoplastic mass and right pleural effusion. Bronchial wash cultures negative for malignancy. Will plan for transbronchial biopsies if patient agreeable. 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 PET scan from September 2023 revealed persistent uptake in the posterior lateral right cord level compatible with neoplasm, there was a new lung nodule identified with elevated SUV suspicious for neoplasm in the right lower lobe. CT scan of the neck from 12/10/2023 is reveals an ill- defined left laryngeal mass. No visible lymphadenopathy Dysphagia secondary to above status post PEG tube placement in May 2023 Hypothyroidism Graves' disease Chronic and ongoing tobacco dependence Obstructive pulmonary disease Plan: The patient was seen and evaluated Labs and medications reviewed Correct electrolytes Continue Zosyn, bronchodilators, steroid Bronchial wash cytology negative for malignancy Will require lung biopsy if patient agreeable This patient was seen independently by the pulmonary nurse practitioner addressing pulmonary issues I have personally seen and examined the patient, performed the documentation and the assessment and plan as written. Number of minutes spent on the visit: 24.
[2023-12-15 12:45] LABS: Glucose,Whole Blood 117 mg/dL (70-110)
[2023-12-15] MEDS: DEXTROSE 5% IN WATER 1,000 ML IV SCH (14:07)
--- NOTE | 2023-12-15 15:58 | P.PN ---
Subjective Progress Note Date: 12/15/23 Patient is evaluated today on the medical floor. He remains on trach collar with no significant complaints of shortness of breath. Patient continues with cough and significant amount of sputum production. He is status post bronchoscopy for a right midlung mass with suspicion for necrotic tumor. Pathology pending. Viral panel negative. White blood cell count remains elevated at 21.95, hemoglobin 10.3. Sodium level 147, potassium 5.5, BUN 27.7, creatinine 0.6. LFTs elevated. Procalcitonin level 0.16. Continues on IV zosyn. 12/15/2023 Patient is evaluated today on the medical floor. He has decided against lung mass biopsy this hospitalization. The pathology from the bronch washings was negative for malignancy. States he is supposed to have one done at the end of the month. Patient requested to not have the tube feedings running all night and wants to go back to bolusing. Diarrhea has improved. Remains on IV zosyn. His sodium is up to 150 today. Potassium 5.6. WBC 19.94, hgb 9.6. Review of Systems Constitutional: Denied any fatigue denied any fever. Cardio vascular: denied any chest pain, palpitations Gastrointestinal: denied any nausea, vomiting, diarrhea Pulmonary: Denied any shortness of breath cough Neurologic denied any new focal deficits All inpatient medications were reviewed and appropriate changes in these medications as dictated in the interval history and assessment and plan. PHYSICAL EXAMINATION: GENERAL: The patient is alert and oriented x3, not in any acute distress. Well developed, well nourished. HEENT: Pupils are round and equally reacting to light. EOMI. No scleral icterus. No conjunctival pallor. Normocephalic, atraumatic. No pharyngeal erythema. No thyromegaly. CARDIOVASCULAR: S1 and S2 present. No murmurs, rubs, or gallops. PULMONARY: Scattered ronchi ABDOMEN: Soft, nontender, nondistended, normoactive bowel sounds. No palpable organomegaly. MUSCULOSKELETAL: No joint swelling or deformity. EXTREMITIES: No cyanosis, clubbing, or pedal edema. NEUROLOGICAL: Gross neurological examination did not reveal any focal deficits. SKIN: No rashes. Assessment and Plan Chronic obstructive pulmonary disease with acute exacerbation continues on IV s olumedrol on bronchodilators and inhaled steroids, Steroids will be decreased Necrotic tumor vs. postobstructive pneumonia, pathology of bronchial washings is negative for malignancy - patient does not want to proceed with recommending lung biopsy on Wednesday. He wants to continue with the biopsy scheduled outpatient for the end of this month. Leukocytosis component of steroid induced repeat labs in the AM steroids are decreased expecting white count to improve Hypernatremia due to poor oral water/free water flushes. Patient started on D5 water. Hyperkalemia treated with cocktail of insulin,dextrose,and calcium gluconate. Will repeat Potassium level later this evening. Left laryngeal mass on CT scan with history of laryngeal cancer status post trach and PEG tube. Diabetes Mellitus type 2 continue with accuchecks ACHS and sliding scale insulin Hx of Graves Disease Hx of smoking GI prophylaxis DVT prophylaxis Full Code The impression and plan of care has been dictated by Jessie Rodriguez, Nurse Practitioner as directed. Dr. Nithin MD I have performed a history and physical examination and medical decision making of this patient, discussed the same with the dictator, and agree with the dictators assessment and plan as written, documented as a scribe. Based on total visit time, I have performed more than 50% of this visit. Objective - Vital Signs Vital signs: Vital Signs Temp 97.6 F 12/15/23 13:35 Pulse 75 12/15/23 15:42 Resp 19 12/15/23 13:35 BP 114/65 12/15/23 13:35 Pulse Ox 95 12/15/23 13:35 FiO2 35 12/15/23 08:24 Intake & Output 12/14/23 12/15/23 12/15/23 18:59 06:59 18:59 Intake Total 95 Balance 95 Weight 62.1 kg 62.1 kg Intake: Other 95 Other: Voiding Method Toilet - Labs CBC & Chem 7: 12/15/23 06:51 12/15/23 06:51 Labs: Abnormal Lab Results - Last 24 Hours (Table) 12/15/23 12/15/23 12/15/23 Range/Units 06:51 06:51 06:51 WBC 19.94 H (4.50-10.00) X 10*3/uL RBC 3.25 L (4.40-5.60) X 10*6/uL Hgb 9.6 L (13.0-17.0) g/dL Hct 32.6 L (39.6-50.0) % MCV 100.3 H (80.0-97.0) FL MCHC 29.4 L (32.0-37.0) g/dL RDW 14.6 H (11.5-14.5) % Plt Count 554 H (140-440) X 10*3/uL Immature Gran # 0.25 H (0.00-0.04) X 10*3/uL Neutrophils # 18.80 H (1.80-7.70) X 10*3/uL Lymphocytes # 0.41 L (0.90-5.00) X 10*3/uL Eosinophils # 0 L (0.04-0.35) X 10*3/uL Sodium 150 H (135-145) mmol/L Potassium 5.6 H (3.5-5.5) mmol/L Chloride 110 H (96-109) mmol/L Carbon Dioxide 32.1 H (21.6-31.8) mmol/L BUN 29.3 H (9.0-27.0) mg/dL BUN/Creatinine Ratio 41.86 H (12.00-20.00) Ratio Glucose 114 H (70-110) mg/dL POC Glucose (mg/dL) (70-110) mg/dL Hemoglobin A1c 6.9 H (<=6.0) % Total Bilirubin <0.2 L (0.3-1.2) mg/dL ALT 105 H (10-49) U/L Alkaline Phosphatase 130 H (41-126) U/L Total Protein 4.7 L (6.2-8.2) g/dL Albumin 2.5 L (3.8-4.9) g/dL Albumin/Globulin Ratio 1.14 L (1.60-3.17) Ratio 12/15/23 Range/Units 12:42 WBC (4.50-10.00) X 10*3/uL RBC (4.40-5.60) X 10*6/uL Hgb (13.0-17.0) g/dL Hct (39.6-50.0) % MCV (80.0-97.0) FL MCHC (32.0-37.0) g/dL RDW (11.5-14.5) % Plt Count (140-440) X 10*3/uL Immature Gran # (0.00-0.04) X 10*3/uL Neutrophils # (1.80-7.70) X 10*3/uL Lymphocytes # (0.90-5.00) X 10*3/uL Eosinophils # (0.04-0.35) X 10*3/uL Sodium (135-145) mmol/L Potassium (3.5-5.5) mmol/L Chloride (96-109) mmol/L Carbon Dioxide (21.6-31.8) mmol/L BUN (9.0-27.0) mg/dL BUN/Creatinine Ratio (12.00-20.00) Ratio Glucose (70-110) mg/dL POC Glucose (mg/dL) 117 H (70-110) mg/dL Hemoglobin A1c (<=6.0) % Total Bilirubin (0.3-1.2) mg/dL ALT (10-49) U/L Alkaline Phosphatase (41-126) U/L Total Protein (6.2-8.2) g/dL Albumin (3.8-4.9) g/dL Albumin/Globulin Ratio (1.60-3.17) Ratio Microbiology - Last 24 Hours (Table) 12/09/23 17:09 Blood Culture - Final Blood 12/09/23 16:40 Blood Culture - Final Blood Assessment and Plan Time with Patient: Less than 30
[2023-12-15] MEDS ORDERED: CALCIUM GLUCONATE IN NACL 1 GM in SALINE 1 100ML.BAG IVPB ONE (16:15)
[2023-12-15] MEDS: DEXTROSE 50% SYRINGE 50 ML IVP ONE (16:20)
[2023-12-15] MEDS: INSULIN REGULAR 100 UNIT/ML VIAL (IV) IV ONE (16:20)
[2023-12-15] MEDS: SODIUM BICARB 8.4% 50 ML SYR (1 MEQ/ML) IV ONE (16:20)
[2023-12-15 17:03] LABS: Glucose,Whole Blood 284 mg/dL (70-110)
--- NOTE | 2023-12-15 17:24 | P.PN ---
Subjective Progress Note Date: 12/15/23 Principal diagnosis: Reason for follow-up is pneumonia Patient is a 58-year-old male past medical history significant for COPD syncope history of laryngeal cancer with radiation and chemotherapy and the patient did have tracheostomy and PEG tube insertion presenting to the ER for evaluation of increasing shortness of breath generalized bodyaches, patient have CT of the chest with evidence of lobular heterogeneous mass with internal cystic and necrotic components centered in the right middle lobe and concern for possible infection. On today's evaluation that is 12/15/2023, patient has been afebrile, patient is breathing comfortably and is currently on room air, patient denies having any chest pain cough is decreased in intensity, patient denies nausea vomiting or diarrhea and no abdominal pain, feeling better. White count is 19.94, creatinine 0.7 cultures so far negative Objective - Vital Signs Vital signs: Vital Signs Temp 97.6 F 12/15/23 07:31 Pulse 65 12/15/23 12:07 Resp 16 12/15/23 09:51 BP 95/55 12/15/23 07:31 Pulse Ox 94 L 12/15/23 08:24 FiO2 35 12/15/23 08:24 Intake & Output 12/14/23 12/15/23 12/15/23 18:59 06:59 18:59 Intake Total 95 Balance 95 Weight 62.1 kg 62.1 kg Intake: Other 95 Other: Voiding Method Toilet - Exam GENERAL DESCRIPTION: Middle-age male up in bed in no distress RESPIRATORY SYSTEM: Unlabored breathing , decreased breath sounds at bases HEART: S1 S2 regular rate and rhythm , ABDOMEN: Soft , no tenderness EXTREMITIES: No edema feet - Labs CBC & Chem 7: 12/15/23 06:51 12/15/23 06:51 Labs: Abnormal Lab Results - Last 24 Hours (Table) 12/15/23 12/15/23 12/15/23 Range/Units 06:51 06:51 06:51 WBC 19.94 H (4.50-10.00) X 10*3/uL RBC 3.25 L (4.40-5.60) X 10*6/uL Hgb 9.6 L (13.0-17.0) g/dL Hct 32.6 L (39.6-50.0) % MCV 100.3 H (80.0-97.0) FL MCHC 29.4 L (32.0-37.0) g/dL RDW 14.6 H (11.5-14.5) % Plt Count 554 H (140-440) X 10*3/uL Immature Gran # 0.25 H (0.00-0.04) X 10*3/uL Neutrophils # 18.80 H (1.80-7.70) X 10*3/uL Lymphocytes # 0.41 L (0.90-5.00) X 10*3/uL Eosinophils # 0 L (0.04-0.35) X 10*3/uL Sodium 150 H (135-145) mmol/L Potassium 5.6 H (3.5-5.5) mmol/L Chloride 110 H (96-109) mmol/L Carbon Dioxide 32.1 H (21.6-31.8) mmol/L BUN 29.3 H (9.0-27.0) mg/dL BUN/Creatinine Ratio 41.86 H (12.00-20.00) Ratio Glucose 114 H (70-110) mg/dL POC Glucose (mg/dL) (70-110) mg/dL Hemoglobin A1c 6.9 H (<=6.0) % Total Bilirubin <0.2 L (0.3-1.2) mg/dL ALT 105 H (10-49) U/L Alkaline Phosphatase 130 H (41-126) U/L Total Protein 4.7 L (6.2-8.2) g/dL Albumin 2.5 L (3.8-4.9) g/dL Albumin/Globulin Ratio 1.14 L (1.60-3.17) Ratio // Range/Units 12:42 WBC (4.50-10.00) X 10*3/uL RBC (4.40-5.60) X 10*6/uL Hgb (13.0-17.0) g/dL Hct (39.6-50.0) % MCV (80.0-97.0) FL MCHC (32.0-37.0) g/dL RDW (11.5-14.5) % Plt Count (140-440) X 10*3/uL Immature Gran # (0.00-0.04) X 10*3/uL Neutrophils # (1.80-7.70) X 10*3/uL Lymphocytes # (0.90-5.00) X 10*3/uL Eosinophils # (0.04-0.35) X 10*3/uL Sodium (135-145) mmol/L Potassium (3.5-5.5) mmol/L Chloride (96-109) mmol/L Carbon Dioxide (21.6-31.8) mmol/L BUN (9.0-27.0) mg/dL BUN/Creatinine Ratio (12.00-20.00) Ratio Glucose (70-110) mg/dL POC Glucose (mg/dL) 117 H (70-110) mg/dL Hemoglobin A1c (<=6.0) % Total Bilirubin (0.3-1.2) mg/dL ALT (10-49) U/L Alkaline Phosphatase (41-126) U/L Total Protein (6.2-8.2) g/dL Albumin (3.8-4.9) g/dL Albumin/Globulin Ratio (1.60-3.17) Ratio Microbiology - Last 24 Hours (Table) 12/09/23 17:09 Blood Culture - Final Blood 12/09/23 16:40 Blood Culture - Final Blood Assessment and Plan (1) Leukocytosis Current Visit: Yes Status: Acute Code(s): D72.829 - ELEVATED WHITE BLOOD CELL COUNT, UNSPECIFIED SNOMED Code(s): 125323628 (2) Pneumonia Current Visit: Yes Status: Acute Priority: High Code(s): J18.9 - PNEUMONIA, UNSPECIFIED ORGANISM SNOMED Code(s): 595971424 Plan: 1patient presented to hospital with fever increasing shortness of breath and is bringing up some purulent sputum in this patient noticed to have significant normality on the CT of the chest concerning for possible necrotic tumor versus a component of postobstructive pneumonia likely gram-negative 2-sputum culture as well as BAL cultures so far negative 3-patient has shown clinical improvement and will continue with the Zosyn however with a culture negative and resistant pathogen we will consider Augmentin on discharge 4-patient white count is trending down and will monitor closely Dictation was produced using [employer] dictation software. please excuse any grammatical, word or spelling errors. Time with Patient: Less than 30
[2023-12-15 20:37] LABS: Glucose,Whole Blood 146 mg/dL (70-110)
[2023-12-15] MEDS: methylPREDNISolone SOD SUCCI 40 MG/ML 1 ML VIAL IV SCH (21:47)
[2023-12-16] MEDS: ALPRAZolam 0.25 MG TAB PO STA (00:47)
[2023-12-16 03:55] LABS: Basophils % (A) 0 %; Eosinophils % (A) 0 %; HGB 10.2 gm/dL (13.0-17.5); Hypochromasia Moderate; Lymphocytes # (A) 0.4 k/uL (1.0-4.8); Lymphocytes % (A) 2 %; MCH 30.1 pg (25.0-35.0); MCHC 29.9 g/dL (31.0-37.0); MCV 100.7 fL (80.0-100.0); Macrocytosis Slight; Monocytes # (A) 0.4 k/uL (0-1.0); Monocytes % (A) 2 %; Neutrophils # (A) 19.3 k/uL (1.3-7.7); Neutrophils % (A) 96 %; Platelet Count 587 k/uL (150-450); RBC 3.37 m/uL (4.30-5.90); RDW 13.1 % (11.5-15.5); WBC 20.1 k/uL (3.8-10.6)
[2023-12-16 06:07] LABS: ALT 111 U/L (4-49); AST 52 U/L (17-59); African American GFR (CKD) >90 (>60 ml/min/1.73 sqM); Albumin 2.3 g/dL (3.5-5.0); Alkaline Phosphatase 149 U/L (38-126); Anion Gap 1 mmol/L; Blood Urea Nitrogen 33 mg/dL (9-20); Calcium 8.4 mg/dL (8.4-10.2); Carbon Dioxide 33 mmol/L (22-30); Chloride 106 mmol/L (98-107); Globulin 2.4 g/dL; Glucose 136 mg/dL (74-99); Magnesium 2.4 mg/dL (1.6-2.3); Non-African American GFR(CKD) >90 (>60 ml/min/1.73 sqM); Potassium 4.2 mmol/L (3.5-5.1); Sodium 140 mmol/L (137-145); Total Bilirubin 0.2 mg/dL (0.2-1.3); Total Protein 4.7 g/dL (6.3-8.2)
[2023-12-16 07:35] LABS: Glucose,Whole Blood 122 mg/dL (70-110)
--- NOTE | 2023-12-16 07:44 | XR ---
EXAMINATION TYPE: XR chest 1V DATE OF EXAM: 12/16/2023 HISTORY: Shortness of breath. COMPARISON: 12/12/2023 TECHNIQUE: Single view of the chest is submitted. FINDINGS: Demonstrated are scattered senescent parenchymal change. Right lower lobe infiltrate persists. No significant change appreciated. Tracheostomy tube unchanged in position. The heart is stable. Hilar and mediastinal structures are within normal limits. Degenerative changes are seen of the dorsal spine. IMPRESSION: 1. Right lower lobe infiltrate persists. No significant change appreciated. Tracheostomy tube unchan ged in position.
--- NOTE | 2023-12-16 10:56 | US ---
EXAMINATION TYPE: US gallbladder DATE OF EXAM: 12/16/2023 COMPARISON: NONE CLINICAL INDICATION: Male, 58 years old with history of Elevated LFTs; Elevated liver enzymes TECHNIQUE: Multiple sonographic images of the right upper quadrant are obtained. FINDINGS: EXAM MEASUREMENTS: Liver Length: 18.0 cm Gallbladder Wall: 0.3 cm CBD: 0.5 cm Right Kidney: 11.8 x 5.2 x 5.1 cm Pancreas: visualized portions appear wnl Liver: enlarged. small amount of free fluid adjacent to liver Gallbladder: sludge Evidence for sonographic Dacosta's sign: no CBD: wnl Right Kidney: cystic lesion = 5.1 x 4.6 x 4.7cm IMPRESSION: 1. Hepatomegaly with a small amount of fluid adjacent to the liver edge. 2. Right renal cyst.
--- NOTE | 2023-12-16 11:10 | P.PN ---
Subjective Progress Note Date: 12/16/23 This is a 58-year-old male patient with a known history of laryngeal cancer status post tracheostomy tube insertion, status post PEG tube insertion, chronic and ongoing tobacco dependence, hypothyroidism, Graves' disease, diverticulosis. PET scan from September 2023 revealed persistent uptake in the posterior lateral right cord level compatible with neoplasm, there was a new lung nodule identified with elevated SUV suspicious for neoplasm in the right lower lobe. He is being followed by both medical and radiation oncology. He presented here to the emergency room yesterday with complaints of increasing shortness of breath, chronic back pain and generalized body aches and pains. X-ray reveals opacification of the right lower lobe. CT scan of the chest reveals lobular heterogenous mass with internal cystic and necrotic components centered in the right middle lobe. This is favored to represent interval progression the patient's known malignancy with superimposed infection not excluded. And emphysema changes noted. Small right pleural effusion. White count 22.1. Hemoglobin 11.4. Platelets 655. Sodium 140. Potassium 4.6. Bicarb 29. BUN 33. Creatinine 0.8. Viral screen negative. He is seen today in consultation on the regular medical floor. He is sitting up in bed. Awake and alert in no acute distress. He is maintaining O2 saturations in the mid 90s on 28% FiO2 via trach collar. He is afebrile. The patient is seen today December 11, 2023 in follow-up on the regular medical floor. He is currently sitting up in bed. Awake and alert in no acute distress. He is maintaining good O2 saturations in the 90s on 60% FiO2 via trach collar. CT scan of the abdomen and pelvis revealed large right middle lobe neoplastic mass and right pleural effusion. No clear evidence of mass or metastatic adenopathy in the abdomen or pelvis. CT scan of the neck reveals an ill-defined left laryngeal mass. No visible lymphadenopathy. Cultures revealed no growth. White count 15.3. Hemoglobin 10.8. Platelets 625. Sodium 141. Potassium 4.7. Bicarb 31. BUN 33. Creatinine 0.7. Glucose 224. Bronchial wash cultures and cytology pending. Ari on bronchodilators, steroids, Zosyn. The patient is seen today December 12, 2023 in follow-up on the regular medical floor. He is awake and alert in no acute distress. He is maintaining O2 saturations in the high 90s on 50% FiO2 via trach collar. He is afebrile. Hemodynamically stable. White count 17.8. Hemoglobin 9.3. Platelets 608. Sodium 145. Potassium 5.2. Bicarb 32. BUN 31. Creatinine 0.6. Glucose 172. Bronchial wash fluid revealed no growth. Cytology pending. He is continue on DuoNeb ventilations, Solu-Medrol. His antibiotics in the form of Zosyn. The patient is seen today December 13, 2023 in follow-up on the regular medical floor. He is currently sitting up at the bedside. Awake and alert in no acute distress. He is maintaining O2 saturations in the 90s on 40% FiO2 via trach collar. He has normal saline at 75 MLS per hour. He has Jevity PEG tube feedings at 65 MLS per hour. Chest x-ray reveals overall stable findings without evidence of an acute cardiopulmonary process. Opacities of the right mid to lower lung zone reveals loculated effusion. Bronchial wash cytology results pending. Cultures revealed no growth. White count 20.0. Hemoglobin 11.1. Platelets 697. Sodium 147. Potassium 5.4. Bicarb 33. BUN 28. Creatinine 0.6. Glucose 152. He is continued on bronchodilators and steroids. Remains on Zosyn. The patient is seen today December 14, 2023 in follow-up on the regular medical floor. He is sitting up in bed. Awake and alert in no acute distress. He is maintaining O2 saturations in the 90s on 50% FiO2 via trach collar. He remains on Zosyn. He is being nourished with Jevity at 65 MLS per hour. Bronchoalveolar lavage cultures revealed no growth. Sputum culture revealed no growth. Blood cultures revealed no growth. White count 21.9. Hemoglobin 10.3. Sodium 147. Potassium 5.5. Bicarb 32. BUN 28. Creatinine 0.6. Glucose 138. Procalcitonin 0.16. He remains on Zosyn and bronchodilators along with Solu- Medrol. Cytology from the bronchial wash is still pending. The patient is seen today December 15, 2023 in follow-up on the regular medical floor. He is awake and alert in no acute distress. Sitting up in bed. Denies any worsening shortness of breath, cough or congestion. Previous maintaining O2 saturations in the 90s on 35% FiO2 via trach collar. Count 19.9. Hemoglobin 9.6. Platelets 554. Sodium 150. Potassium 5.6. Bicarb 32. BUN 29. Creatinine 0.7. Glucose 114. Calcitonin 0.16. Bronchial wash pathology revealed no evidence of malignancy. He remains on Zosyn, bronchodilators and steroids. The patient is seen today December 16, 2023 in follow-up on the regular medical floor. He is currently resting comfortably in bed. Awake and alert in no acute distress. Chest x-ray continues to show infiltrate of the right lower lobe. No change. Tracheostomy tube in good position. Continue on trach collar at 60% FiO2 with O2 saturations in the upper 90s. He is afebrile. Hemodynamically stable. Ultrasound of the gallbladder revealed hepatomegaly with small amount of fluid adjacent to the liver edge. Right renal cyst. Bronchial wash cultures revealed no growth. Sputum culture reveals no growth. White count 20.1. Hemoglobin 10.2. Platelets 587. Sodium 140. Potassium 4.2. Bicarb 33. BUN 33. Creatinine 0.62. Glucose 136. Remains on antibiotics in the form of Zosyn. Continue on bronchodilators and steroids. Objective - Vital Signs Vital signs: Vital Signs Temp 97.6 F 12/16/23 07:41 Pulse 80 12/16/23 08:30 Resp 17 12/16/23 07:41 BP 122/76 12/16/23 07:41 Pulse Ox 98 12/16/23 08:05 FiO2 60 12/16/23 08:05 Intake & Output 12/15/23 12/16/23 12/16/23 18:59 06:59 18:59 Weight 62.1 kg Other: Voiding Method Toilet Toilet Urinal - Exam GENERAL EXAM: Alert, pleasant 58-year-old male patient, sitting up in bed, on 60% FiO2 via trach collar, in no apparent distress. HEAD: Normocephalic. EYES: Normal reaction of pupils, equal size. NOSE: Clear with pink turbinates. THROAT: No erythema or exudates. NECK: Tracheostomy tube secured in place. No masses, no JVD. CHEST: No chest wall deformity. LUNGS: Equal air entry with crackles of the right lung base. CVS: S1 and S2 normal with no audible murmur, regular rhythm. ABDOMEN: No hepatosplenomegaly, normal bowel sounds, no guarding or rigidity. SPINE: No scoliosis or deformity SKIN: No rashes CENTRAL NERVOUS SYSTEM: No focal deficits, tone is normal in all 4 extremities. EXTREMITIES: There is no peripheral edema. No clubbing, no cyanosis. Peripheral pulses are intact. - Labs CBC & Chem 7: 12/16/23 03:07 12/16/23 03:07 Labs: Abnormal Lab Results - Last 24 Hours (Table) 12/15/23 12/15/23 12/15/23 Range/Units 06:51 06:51 06:51 WBC 19.94 H (4.50-10.00) X 10*3/uL RBC 3.25 L (4.40-5.60) X 10*6/uL Hgb 9.6 L (13.0-17.0) g/dL Hct 32.6 L (39.6-50.0) % MCV 100.3 H (80.0-97.0) FL MCHC 29.4 L (32.0-37.0) g/dL RDW 14.6 H (11.5-14.5) % Plt Count 554 H (140-440) X 10*3/uL Immature Gran # 0.25 H (0.00-0.04) X 10*3/uL Neutrophils # 18.80 H (1.80-7.70) X 10*3/uL Lymphocytes # 0.41 L (0.90-5.00) X 10*3/uL Eosinophils # 0 L (0.04-0.35) X 10*3/uL Sodium 150 H (135-145) mmol/L Potassium 5.6 H (3.5-5.5) mmol/L Chloride 110 H (96-109) mmol/L Carbon Dioxide 32.1 H (21.6-31.8) mmol/L BUN 29.3 H (9.0-27.0) mg/dL Creatinine (0.66-1.25) mg/dL BUN/Creatinine Ratio 41.86 H (12.00-20.00) Ratio Glucose 114 H (70-110) mg/dL POC Glucose (mg/dL) (70-110) mg/dL Hemoglobin A1c 6.9 H (<=6.0) % Magnesium (1.6-2.3) mg/dL Total Bilirubin <0.2 L (0.3-1.2) mg/dL ALT 105 H (10-49) U/L Alkaline Phosphatase 130 H (41-126) U/L Total Protein 4.7 L (6.2-8.2) g/dL Albumin 2.5 L (3.8-4.9) g/dL Albumin/Globulin Ratio 1.14 L (1.60-3.17) Ratio 12/15/23 12/15/23 12/15/23 Range/Units 12:42 17:01 20:35 WBC (4.50-10.00) X 10*3/uL RBC (4.40-5.60) X 10*6/uL Hgb (13.0-17.0) g/dL Hct (39.6-50.0) % MCV (80.0-97.0) FL MCHC (32.0-37.0) g/dL RDW (11.5-14.5) % Plt Count (140-440) X 10*3/uL Immature Gran # (0.00-0.04) X 10*3/uL Neutrophils # (1.80-7.70) X 10*3/uL Lymphocytes # (0.90-5.00) X 10*3/uL Eosinophils # (0.04-0.35) X 10*3/uL Sodium (135-145) mmol/L Potassium (3.5-5.5) mmol/L Chloride (96-109) mmol/L Carbon Dioxide (21.6-31.8) mmol/L BUN (9.0-27.0) mg/dL Creatinine (0.66-1.25) mg/dL BUN/Creatinine Ratio (12.00-20.00) Ratio Glucose (70-110) mg/dL POC Glucose (mg/dL) 117 H 284 H 146 H (70-110) mg/dL Hemoglobin A1c (<=6.0) % Magnesium (1.6-2.3) mg/dL Total Bilirubin (0.3-1.2) mg/dL ALT (10-49) U/L Alkaline Phosphatase (41-126) U/L Total Protein (6.2-8.2) g/dL Albumin (3.8-4.9) g/dL Albumin/Globulin Ratio (1.60-3.17) Ratio 12/16/23 12/16/23 12/16/23 Range/Units 03:07 03:07 07:32 WBC 20.1 H (4.50-10.00) X 10*3/uL RBC 3.37 L (4.40-5.60) X 10*6/uL Hgb 10.2 L (13.0-17.0) g/dL Hct 34.0 L (39.6-50.0) % MCV 100.7 H (80.0-97.0) FL MCHC 29.9 L (32.0-37.0) g/dL RDW (11.5-14.5) % Plt Count 587 H (140-440) X 10*3/uL Immature Gran # (0.00-0.04) X 10*3/uL Neutrophils # 19.3 H (1.80-7.70) X 10*3/uL Lymphocytes # 0.4 L (0.90-5.00) X 10*3/uL Eosinophils # (0.04-0.35) X 10*3/uL Sodium (135-145) mmol/L Potassium (3.5-5.5) mmol/L Chloride (96-109) mmol/L Carbon Dioxide 33 H (21.6-31.8) mmol/L BUN 33 H (9.0-27.0) mg/dL Creatinine 0.62 L (0.66-1.25) mg/dL BUN/Creatinine Ratio (12.00-20.00) Ratio Glucose 136 H (70-110) mg/dL POC Glucose (mg/dL) 122 H (70-110) mg/dL Hemoglobin A1c (<=6.0) % Magnesium 2.4 H (1.6-2.3) mg/dL Total Bilirubin (0.3-1.2) mg/dL ALT 111 H (10-49) U/L Alkaline Phosphatase 149 H (41-126) U/L Total Protein 4.7 L (6.2-8.2) g/dL Albumin 2.3 L (3.8-4.9) g/dL Albumin/Globulin Ratio (1.60-3.17) Ratio Assessment and Plan Assessment: Acute hypoxic respiratory failure secondary to right lower lung opacification and possible postobstructive pneumonia. CT scan of the chest reveals lobular heterogenous mass with internal cystic and necrotic components centered in the right middle lobe. This is favored to represent interval progression the patient's known malignancy with superimposed infection not excluded. Emphysema changes noted. Small right pleural effusion. Status post bronchoscopy with BAL on December 10, 2023. Follow-up CT scan of the abdomen reveals clearer evidence of a large right middle lobe neoplastic mass and right pleural effusion. Bronchial wash cultures negative for malignancy. Will plan for transbronchial biopsies December 17, 2023. 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 PET scan from September 2023 revealed persistent uptake in the posterior lateral right cord level compatible with neoplasm, there was a new lung nodule identified with elevated SUV suspicious for neoplasm in the right lower lobe. CT scan of the neck from 12/10/2023 is reveals an ill- defined left laryngeal mass. No visible lymphadenopathy Dysphagia secondary to above status post PEG tube placement in May 2023 Hypothyroidism Graves' disease Chronic and ongoing tobacco dependence Obstructive pulmonary disease Plan: The patient was seen and evaluated Labs and medications reviewed Continue Zosyn, bronchodilators, steroids Plan is for bronchoscopy with biopsies tomorrow This patient was seen independently by the pulmonary nurse practitioner addr adelaide pulmonary issues I have personally seen and examined the patient, performed the documentation and the assessment and plan as written. Number of minutes spent on the visit: 23.
[2023-12-16 12:24] LABS: Glucose,Whole Blood 111 mg/dL (70-110)
[2023-12-16] MEDS: ALPRAZolam 0.25 MG TAB PO PRN (13:42)
--- NOTE | 2023-12-16 14:59 | P.PN ---
Subjective Progress Note Date: 12/16/23 Patient is evaluated today on the medical floor. He remains on trach collar with no significant complaints of shortness of breath. Patient continues with cough and significant amount of sputum production. He is status post bronchoscopy for a right midlung mass with suspicion for necrotic tumor. Pathology pending. Viral panel negative. White blood cell count remains elevated at 21.95, hemoglobin 10.3. Sodium level 147, potassium 5.5, BUN 27.7, creatinine 0.6. LFTs elevated. Procalcitonin level 0.16. Continues on IV zosyn. 12/15/2023 Patient is evaluated today on the medical floor. He has decided against lung mass biopsy this hospitalization. The pathology from the bronch washings was negative for malignancy. States he is supposed to have one done at the end of the month. Patient requested to not have the tube feedings running all night and wants to go back to bolusing. Diarrhea has improved. Remains on IV zosyn. His sodium is up to 150 today. Potassium 5.6. WBC 19.94, hgb 9.6. 12/16/2023 Patient is evaluated today in follow up. He is unsure about undergoing lung mass biopsy. He was started on D5 water for the hypernatremia and given cocktail for the hyperkalemia and electrolytes have normalized today. LFTs remain elevated with AST 52, ALT 111, alk phos 149. Hemoglobin A1C did come back elevated at 6.9. Review of Systems Constitutional: Denied any fatigue denied any fever. Cardio vascular: denied any chest pain, palpitations Gastrointestinal: denied any nausea, vomiting, diarrhea Pulmonary: Denied any shortness of breath cough Neurologic denied any new focal deficits All inpatient medications were reviewed and appropriate changes in these medications as dictated in the interval history and assessment and plan. PHYSICAL EXAMINATION: GENERAL: The patient is alert and oriented x3, not in any acute distress. Well developed, well nourished. HEENT: Pupils are round and equally reacting to light. EOMI. No scleral icterus. No conjunctival pallor. Normocephalic, atraumatic. No pharyngeal erythema. No thyromegaly. CARDIOVASCULAR: S1 and S2 present. No murmurs, rubs, or gallops. PULMONARY: Scattered ronchi ABDOMEN: Soft, nontender, nondistended, normoactive bowel sounds. No palpable organomegaly. MUSCULOSKELETAL: No joint swelling or deformity. EXTREMITIES: No cyanosis, clubbing, or pedal edema. NEUROLOGICAL: Gross neurological examination did not reveal any focal deficits. SKIN: No rashes. Assessment and Plan Chronic obstructive pulmonary disease with acute exacerbation continues on IV solumedrol on bronchodilators and inhaled steroids, Steroids will be decreased Necrotic tumor vs. postobstructive pneumonia, pathology of bronchial washings is negative for malignancy - patient does not want to proceed with recommending lung biopsy on Wednesday. He wants to continue with the biopsy scheduled outpatient for the end of this month. Leukocytosis component of steroid induced repeat labs in the AM steroids are decreased expecting white count to improve Hypernatremia due to poor oral water/free water flushes. Patient started on D5 water, sodium level normalized. Would recommend free water through the PEG in addition to bolus feedings. Hyperkalemia treated with cocktail of insulin,dextrose,and calcium gluconate. Potassium normalized. Left laryngeal mass on CT scan with history of laryngeal cancer status post trach and PEG tube. Diabetes Mellitus type 2 continue with accuchecks ACHS and sliding scale insulin hemoglobin A1C 6.9. Hx of Graves Disease Hx of smoking GI prophylaxis DVT prophylaxis Full Code Continue on IV antibiotics per ID. Patient was having multiple loose BMS with mention of possible gastric thickening on CT imaging. Diarrhea has resolved. White blood cell count remains elevated and will repeat labs in the AM. Pulmonary following with further recommendations. Patient unsure about having lung biopsy here, he was scheduled for biopsy with Dr. Whipple later this month. He has a follow up with oncology outpatient on 01/09. The impression and plan of care has been dictated by Jessie Rodriguez Nurse Practitioner as directed. Dr. Nithin MD I have performed a history and physical examination and medical decision making of this patient, discussed the same with the dictator, and agree with the dictators assessment and plan as written, documented as a scribe. Based on total visit time, I have performed more than 50% of this visit. Objective - Vital Signs Vital signs: Vital Signs Temp 97.8 F 12/16/23 12:53 Pulse 68 12/16/23 12:53 Resp 17 12/16/23 07:41 BP 107/62 12/16/23 12:53 Pulse Ox 96 12/16/23 12:53 FiO2 60 12/16/23 08:05 Intake & Output 12/15/23 12/16/23 12/16/23 18:59 06:59 18:59 Intake Total 237 Balance 237 Weight 62.1 kg Intake: Tube Feeding 237 Other: Voiding Method Toilet Toilet Urinal - Labs CBC & Chem 7: 12/16/23 03:07 12/16/23 03:07 Labs: Abnormal Lab Results - Last 24 Hours (Table) 12/15/23 12/15/23 12/16/23 Range/Units 17:01 20:35 03:07 WBC 20.1 H (3.8-10.6) k/uL RBC 3.37 L (4.30-5.90) m/uL Hgb 10.2 L (13.0-17.5) gm/dL Hct 34.0 L (39.0-53.0) % MCV 100.7 H (80.0-100.0) fL MCHC 29.9 L (31.0-37.0) g/dL Plt Count 587 H (150-450) k/uL Neutrophils # 19.3 H (1.3-7.7) k/uL Lymphocytes # 0.4 L (1.0-4.8) k/uL Carbon Dioxide (22-30) mmol/L BUN (9-20) mg/dL Creatinine (0.66-1.25) mg/dL Glucose (74-99) mg/dL POC Glucose (mg/dL) 284 H 146 H (70-110) mg/dL Magnesium (1.6-2.3) mg/dL ALT (4-49) U/L Alkaline Phosphatase (38-126) U/L Total Protein (6.3-8.2) g/dL Albumin (3.5-5.0) g/dL 12/16/23 12/16/23 12/16/23 Range/Units 03:07 07:32 12:10 WBC (3.8-10.6) k/uL RBC (4.30-5.90) m/uL Hgb (13.0-17.5) gm/dL Hct (39.0-53.0) % MCV (80.0-100.0) fL MCHC (31.0-37.0) g/dL Plt Count (150-450) k/uL Neutrophils # (1.3-7.7) k/uL Lymphocytes # (1.0-4.8) k/uL Carbon Dioxide 33 H (22-30) mmol/L BUN 33 H (9-20) mg/dL Creatinine 0.62 L (0.66-1.25) mg/dL Glucose 136 H (74-99) mg/dL POC Glucose (mg/dL) 122 H 111 H (70-110) mg/dL Magnesium 2.4 H (1.6-2.3) mg/dL ALT 111 H (4-49) U/L Alkaline Phosphatase 149 H (38-126) U/L Total Protein 4.7 L (6.3-8.2) g/dL Albumin 2.3 L (3.5-5.0) g/dL Assessment and Plan Time with Patient: Less than 30
--- NOTE | 2023-12-16 15:40 | P.PN ---
Subjective Progress Note Date: 12/16/23 Principal diagnosis: Reason for follow-up is pneumonia Patient is a 58-year-old male past medical history significant for COPD syncope history of laryngeal cancer with radiation and chemotherapy and the patient did have tracheostomy and PEG tube insertion presenting to the ER for evaluation of increasing shortness of breath generalized bodyaches, patient have CT of the chest with evidence of lobular heterogeneous mass with internal cystic and necrotic components centered in the right middle lobe and concern for possible infection. On today's evaluation that is 12/16/2023,the patient denies any fever or any chills, patient is breathing comfortably on 11 L trach collar, the patient denies chest pain shortness of breath and no worsening cough, patient denies ab dominal pain, no nausea vomiting or diarrhea. Patient white count is 20.1, creatinine 0.62 BAL and sputum culture negative Objective - Vital Signs Vital signs: Vital Signs Temp 97.8 F 12/16/23 12:53 Pulse 70 12/16/23 15:29 Resp 17 12/16/23 07:41 BP 107/62 12/16/23 12:53 Pulse Ox 96 12/16/23 12:53 FiO2 60 12/16/23 08:05 Intake & Output 12/15/23 12/16/23 12/16/23 18:59 06:59 18:59 Intake Total 237 Balance 237 Weight 62.1 kg Intake: Tube Feeding 237 Other: Voiding Method Toilet Toilet Urinal - Exam GENERAL DESCRIPTION: Middle-age male up in bed in no distress RESPIRATORY SYSTEM: Unlabored breathing , decreased breath sounds at bases HEART: S1 S2 regular rate and rhythm , ABDOMEN: Soft , no tenderness EXTREMITIES: No edema feet - Labs CBC & Chem 7: 12/16/23 03:07 12/16/23 03:07 Labs: Abnormal Lab Results - Last 24 Hours (Table) 12/15/23 12/15/23 12/16/23 Range/Units 17:01 20:35 03:07 WBC 20.1 H (3.8-10.6) k/uL RBC 3.37 L (4.30-5.90) m/uL Hgb 10.2 L (13.0-17.5) gm/dL Hct 34.0 L (39.0-53.0) % MCV 100.7 H (80.0-100.0) fL MCHC 29.9 L (31.0-37.0) g/dL Plt Count 587 H (150-450) k/uL Neutrophils # 19.3 H (1.3-7.7) k/uL Lymphocytes # 0.4 L (1.0-4.8) k/uL Carbon Dioxide (22-30) mmol/L BUN (9-20) mg/dL Creatinine (0.66-1.25) mg/dL Glucose (74-99) mg/dL POC Glucose (mg/dL) 284 H 146 H (70-110) mg/dL Magnesium (1.6-2.3) mg/dL ALT (4-49) U/L Alkaline Phosphatase (38-126) U/L Total Protein (6.3-8.2) g/dL Albumin (3.5-5.0) g/dL 12/16/23 12/16/23 12/16/23 Range/Units 03:07 07:32 12:10 WBC (3.8-10.6) k/uL RBC (4.30-5.90) m/uL Hgb (13.0-17.5) gm/dL Hct (39.0-53.0) % MCV (80.0-100.0) fL MCHC (31.0-37.0) g/dL Plt Count (150-450) k/uL Neutrophils # (1.3-7.7) k/uL Lymphocytes # (1.0-4.8) k/uL Carbon Dioxide 33 H (22-30) mmol/L BUN 33 H (9-20) mg/dL Creatinine 0.62 L (0.66-1.25) mg/dL Glucose 136 H (74-99) mg/dL POC Glucose (mg/dL) 122 H 111 H (70-110) mg/dL Magnesium 2.4 H (1.6-2.3) mg/dL ALT 111 H (4-49) U/L Alkaline Phosphatase 149 H (38-126) U/L Total Protein 4.7 L (6.3-8.2) g/dL Albumin 2.3 L (3.5-5.0) g/dL Assessment and Plan (1) Leukocytosis Current Visit: Yes Status: Acute Code(s): D72.829 - ELEVATED WHITE BLOOD CELL COUNT, UNSPECIFIED SNOMED Code(s): 813615350 (2) Pneumonia Current Visit: Yes Status: Acute Priority: High Code(s): J18.9 - PNEUMONIA, UNSPECIFIED ORGANISM SNOMED Code(s): 567975808 Plan: 1patient presented to hospital with fever increasing shortness of breath and is bringing up some purulent sputum in this patient noticed to have significant normality on the CT of the chest concerning for possible necrotic tumor versus a component of postobstructive pneumonia likely gram-negative 2-sputum culture as well as BAL cultures so far negative 3-patient slowly clinical improving, with a culture negative and resistant pathogen we will discontinue Zosyn and give a short course of Augmentin Dictation was produced using [employer] dictation software. please excuse any grammatical, word or spelling errors. Time with Patient: Less than 30
[2023-12-16 17:14] LABS: Glucose,Whole Blood 129 mg/dL (70-110)
--- NOTE | 2023-12-16 17:23 | P.PN ---
Subjective Progress Note Date: 12/15/23 No acute events. Patient resting comfortably in bed. Reports improvement in breathing and pain since admission. Bronchial washing cytology negative for malignancy Objective - Vital Signs Vital signs: Vital Signs Temp 97.6 F 12/15/23 13:35 Pulse 75 12/15/23 15:42 Resp 19 12/15/23 13:35 BP 114/65 12/15/23 13:35 Pulse Ox 95 12/15/23 13:35 FiO2 35 12/15/23 08:24 Intake & Output 12/15/23 12/15/23 12/16/23 06:59 18:59 06:59 Weight 62.1 kg 62.1 kg Other: Voiding Method Toilet - Constitutional General appearance: Present: no acute distress, thin - EENT Eyes: Present: anicteric sclerae, EOMI ENT: Present: hearing grossly normal - Respiratory Details: breathing is even and unlabored - Cardiovascular Details: skin warm and dry - Integumentary Integumentary: Present: cyanotic - Neurologic Neurologic: Present: CNII-XII intact - Musculoskeletal Musculoskeletal: Present: strength equal bilaterally - Psychiatric Psychiatric: Present: A&O x's 3 - Labs CBC & Chem 7: 12/16/23 03:07 12/16/23 03:07 Labs: Abnormal Lab Results - Last 24 Hours (Table) 12/15/23 12/15/23 12/15/23 Range/Units 06:51 06:51 06:51 WBC 19.94 H (4.50-10.00) X 10*3/uL RBC 3.25 L (4.40-5.60) X 10*6/uL Hgb 9.6 L (13.0-17.0) g/dL Hct 32.6 L (39.6-50.0) % MCV 100.3 H (80.0-97.0) FL MCHC 29.4 L (32.0-37.0) g/dL RDW 14.6 H (11.5-14.5) % Plt Count 554 H (140-440) X 10*3/uL Immature Gran # 0.25 H (0.00-0.04) X 10*3/uL Neutrophils # 18.80 H (1.80-7.70) X 10*3/uL Lymphocytes # 0.41 L (0.90-5.00) X 10*3/uL Eosinophils # 0 L (0.04-0.35) X 10*3/uL Sodium 150 H (135-145) mmol/L Potassium 5.6 H (3.5-5.5) mmol/L Chloride 110 H (96-109) mmol/L Carbon Dioxide 32.1 H (21.6-31.8) mmol/L BUN 29.3 H (9.0-27.0) mg/dL BUN/Creatinine Ratio 41.86 H (12.00-20.00) Ratio Glucose 114 H (70-110) mg/dL POC Glucose (mg/dL) (70-110) mg/dL Hemoglobin A1c 6.9 H (<=6.0) % Total Bilirubin <0.2 L (0.3-1.2) mg/dL ALT 105 H (10-49) U/L Alkaline Phosphatase 130 H (41-126) U/L Total Protein 4.7 L (6.2-8.2) g/dL Albumin 2.5 L (3.8-4.9) g/dL Albumin/Globulin Ratio 1.14 L (1.60-3.17) Ratio 12/15/23 12/15/23 12/15/23 Range/Units 12:42 17:01 20:35 WBC (4.50-10.00) X 10*3/uL RBC (4.40-5.60) X 10*6/uL Hgb (13.0-17.0) g/dL Hct (39.6-50.0) % MCV (80.0-97.0) FL MCHC (32.0-37.0) g/dL RDW (11.5-14.5) % Plt Count (140-440) X 10*3/uL Immature Gran # (0.00-0.04) X 10*3/uL Neutrophils # (1.80-7.70) X 10*3/uL Lymphocytes # (0.90-5.00) X 10*3/uL Eosinophils # (0.04-0.35) X 10*3/uL Sodium (135-145) mmol/L Potassium (3.5-5.5) mmol/L Chloride (96-109) mmol/L Carbon Dioxide (21.6-31.8) mmol/L BUN (9.0-27.0) mg/dL BUN/Creatinine Ratio (12.00-20.00) Ratio Glucose (70-110) mg/dL POC Glucose (mg/dL) 117 H 284 H 146 H (70-110) mg/dL Hemoglobin A1c (<=6.0) % Total Bilirubin (0.3-1.2) mg/dL ALT (10-49) U/L Alkaline Phosphatase (41-126) U/L Total Protein (6.2-8.2) g/dL Albumin (3.8-4.9) g/dL Albumin/Globulin Ratio (1.60-3.17) Ratio Microbiology - Last 24 Hours (Table) 12/09/23 17:09 Blood Culture - Final Blood 12/09/23 16:40 Blood Culture - Final Blood Assessment and Plan (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 Patient states he has been having increased sputum production and had a fever of 101.0. Denies any recent hemoptysis. -Upon admission chest x-ray revealed diffuse opacification of the right lower lung. CT chest with contrast showed lobular heterogeneous mass with internal cystic and necrotic component centered in the right middle lobe, in the region of prior FDG avid lung nodule. Favored to represent interval progression of the patient's known malignant disease, with superimposed infection not excluded. Small right pleural effusion. And emphysematous changes of the lungs. -Patient underwent bronchoscopy with BAL with Dr. Us with findings of mucous plug in the right middle lobe and right lower lobe bronchus. 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 PET scan was ordered by radiation oncology. It appears to be some uptake in the right vocal cord, and also in an opacity in the right lung. Patient was advised that these could be nonspecific and represent areas of inflammation. We will await evaluation and review of the scan by radiation oncology. Plan was to f/u in [address] scans if PET scan findings were not not found to be indicative of residual or new malignancy on upcoming evaluation by radiation oncology and ENT. Patient followed up with ENT and had biopsy of right vocal cord lesion on 11/11/2023 which was positive for malignancy. He was recommended for laryngectomy, however patient decided that he did not want to go through with surgery and also did not follow-up with radiation oncology for recommended SBRT of right lung -CT abdomen pelvis without contrast revealed findings in the inferior chest redemonstrated, including large right middle lobe neoplastic mass and right pleural effusion without significant change. No clear evidence of mass or metastatic adenopathy in the abdomen or pelvis. Questionable thickening of the proximal gastric wall, and distal rectal wall versus incomplete distention. CT soft tissue neck without contrast revealed ill-defined left laryngeal mass with mild narrowing of the airway. No visible lymphadenopathy. CT findings and concerns for malignancy were discussed with patient, in the larynx and right lung. Discussed that concern is that lung findings is metastatic disease vs new primary and will have to awaiting pending cytology, but are still recommending surgical resection of laryngeal mass and SBRT of right lung. Patient is wanting to await findings of cytology/workup, and will consider further evaluation and surgical intervention with ENT pending current workup. He has stated that he is unsure if he wants to proceed with surgery if malignancy is confirmed within the right lung. -Bronchial washing cytology negative for malignancy. Results discussed with fran ent. Pulmonology has seen patient and recommended repeat bronch with biopsy, however patient is reluctant at this time. Discussed with patient that we agree with repeat bronch and biopsy. He is apprehensive for further procedures at this time, but states he would think about it more -Patient has upcoming follow-up with Dr. Moreira on 01/09. Will obtain PET CT outpt upon discharge. Will further discuss goals of care and treatment recommendations at scheduled follow up
[2023-12-16 20:14] LABS: Glucose,Whole Blood 145 mg/dL (70-110)
[2023-12-16] MEDS: AMOXIC-POT CLAV 875-125MG 1 EACH TAB PO SCH (20:26)
[2023-12-16 22:56] VITALS: RESP 16
[2023-12-17 07:02] LABS: Glucose,Whole Blood 90 mg/dL (70-110)
[2023-12-17] MEDS: SYMBICORT 160-4.5 MCG INHALER INHALATION SCH (08:04)
[2023-12-17 08:51] LABS: Basophils # (A) 0.03 X 10*3/uL (0.00-0.10); Basophils % (A) 0.2 %; Eosinophils # (A) 0 X 10*3/uL (0.04-0.35); Eosinophils % (A) 0 %; HCT 34.4 % (39.6-50.0); HGB 10.6 g/dL (13.0-17.0); Lymphocytes # (A) 0.65 X 10*3/uL (0.90-5.00); Lymphocytes % (A) 4.2 %; MCH 30.3 pg (27.0-32.0); MCHC 30.8 g/dL (32.0-37.0); MCV 98.3 FL (80.0-97.0); Monocytes # (A) 0.32 X 10*3/uL (0.20-1.00); Monocytes % (A) 2.1 %; NRBC Per 100 WBC 0 X 10*3/uL (0.00-0.01); Neutrophils # (A) 14.19 X 10*3/uL (1.80-7.70); Neutrophils % (A) 91.7 %; Platelet Count 557 X 10*3/uL (140-440); RDW 14.6 % (11.5-14.5); WBC 15.47 X 10*3/uL (4.50-10.00)
[2023-12-17 09:02] LABS: Magnesium 2.4 mg/dL (1.5-2.4)
[2023-12-17 09:09] LABS: Calcium 8.4 mg/dL (8.7-10.3); Carbon Dioxide 28.7 mmol/L (21.6-31.8); Chloride 102 mmol/L (96-109); Glucose 91 mg/dL (70-110); Potassium 5.3 mmol/L (3.5-5.5); Sodium 139 mmol/L (135-145)
[2023-12-17] MEDS: predniSONE 10 MG TAB PO SCH (09:37)
[2023-12-17 11:46] LABS: Glucose,Whole Blood 115 mg/dL (70-110)
--- NOTE | 2023-12-17 11:53 | P.PN ---
Subjective Progress Note Date: 12/17/23 This is a 58-year-old male patient with a known history of laryngeal cancer status post tracheostomy tube insertion, status post PEG tube insertion, chronic and ongoing tobacco dependence, hypothyroidism, Graves' disease, diverticulosis. PET scan from September 2023 revealed persistent uptake in the posterior lateral right cord level compatible with neoplasm, there was a new lung nodule identified with elevated SUV suspicious for neoplasm in the right lower lobe. He is being followed by both medical and radiation oncology. He presented here to the emergency room yesterday with complaints of increasing shortness of breath, chronic back pain and generalized body aches and pains. X-ray reveals opacification of the right lower lobe. CT scan of the chest reveals lobular heterogenous mass with internal cystic and necrotic components centered in the right middle lobe. This is favored to represent interval progression the patient's known malignancy with superimposed infection not excluded. And emphysema changes noted. Small right pleural effusion. White count 22.1. Hemoglobin 11.4. Platelets 655. Sodium 140. Potassium 4.6. Bicarb 29. BUN 33. Creatinine 0.8. Viral screen negative. He is seen today in consultation on the regular medical floor. He is sitting up in bed. Awake and alert in no acute distress. He is maintaining O2 saturations in the mid 90s on 28% FiO2 via trach collar. He is afebrile. The patient is seen today December 11, 2023 in follow-up on the regular medical floor. He is currently sitting up in bed. Awake and alert in no acute distress. He is maintaining good O2 saturations in the 90s on 60% FiO2 via trach collar. CT scan of the abdomen and pelvis revealed large right middle lobe neoplastic mass and right pleural effusion. No clear evidence of mass or metastatic adenopathy in the abdomen or pelvis. CT scan of the neck reveals an ill-defined left laryngeal mass. No visible lymphadenopathy. Cultures revealed no growth. White count 15.3. Hemoglobin 10.8. Platelets 625. Sodium 141. Potassium 4.7. Bicarb 31. BUN 33. Creatinine 0.7. Glucose 224. Bronchial wash cultures and cytology pending. Ari on bronchodilators, steroids, Zosyn. The patient is seen today December 12, 2023 in follow-up on the regular medical floor. He is awake and alert in no acute distress. He is maintaining O2 saturations in the high 90s on 50% FiO2 via trach collar. He is afebrile. Hemodynamically stable. White count 17.8. Hemoglobin 9.3. Platelets 608. Sodium 145. Potassium 5.2. Bicarb 32. BUN 31. Creatinine 0.6. Glucose 172. Bronchial wash fluid revealed no growth. Cytology pending. He is continue on DuoNeb ventilations, Solu-Medrol. His antibiotics in the form of Zosyn. The patient is seen today December 13, 2023 in follow-up on the regular medical floor. He is currently sitting up at the bedside. Awake and alert in no acute distress. He is maintaining O2 saturations in the 90s on 40% FiO2 via trach collar. He has normal saline at 75 MLS per hour. He has Jevity PEG tube feedings at 65 MLS per hour. Chest x-ray reveals overall stable findings without evidence of an acute cardiopulmonary process. Opacities of the right mid to lower lung zone reveals loculated effusion. Bronchial wash cytology results pending. Cultures revealed no growth. White count 20.0. Hemoglobin 11.1. Platelets 697. Sodium 147. Potassium 5.4. Bicarb 33. BUN 28. Creatinine 0.6. Glucose 152. He is continued on bronchodilators and steroids. Remains on Zosyn. The patient is seen today December 14, 2023 in follow-up on the regular medical floor. He is sitting up in bed. Awake and alert in no acute distress. He is maintaining O2 saturations in the 90s on 50% FiO2 via trach collar. He remains on Zosyn. He is being nourished with Jevity at 65 MLS per hour. Bronchoalveolar lavage cultures revealed no growth. Sputum culture revealed no growth. Blood cultures revealed no growth. White count 21.9. Hemoglobin 10.3. Sodium 147. Potassium 5.5. Bicarb 32. BUN 28. Creatinine 0.6. Glucose 138. Procalcitonin 0.16. He remains on Zosyn and bronchodilators along with Solu- Medrol. Cytology from the bronchial wash is still pending. The patient is seen today December 15, 2023 in follow-up on the regular medical floor. He is awake and alert in no acute distress. Sitting up in bed. Denies any worsening shortness of breath, cough or congestion. Previous maintaining O2 saturations in the 90s on 35% FiO2 via trach collar. Count 19.9. Hemoglobin 9.6. Platelets 554. Sodium 150. Potassium 5.6. Bicarb 32. BUN 29. Creatinine 0.7. Glucose 114. Calcitonin 0.16. Bronchial wash pathology revealed no evidence of malignancy. He remains on Zosyn, bronchodilators and steroids. The patient is seen today December 16, 2023 in follow-up on the regular medical floor. He is currently resting comfortably in bed. Awake and alert in no acute distress. Chest x-ray continues to show infiltrate of the right lower lobe. No change. Tracheostomy tube in good position. Continue on trach collar at 60% FiO2 with O2 saturations in the upper 90s. He is afebrile. Hemodynamically stable. Ultrasound of the gallbladder revealed hepatomegaly with small amount of fluid adjacent to the liver edge. Right renal cyst. Bronchial wash cultures revealed no growth. Sputum culture reveals no growth. White count 20.1. Hemoglobin 10.2. Platelets 587. Sodium 140. Potassium 4.2. Bicarb 33. BUN 33. Creatinine 0.62. Glucose 136. Remains on antibiotics in the form of Zosyn. Continue on bronchodilators and steroids. The patient is seen today December 17, 2023 in follow-up on the regular medical floor. He is sitting up in bed. Awake and alert in no acute distress. He is maintaining good O2 saturations in the 90s on 40% trach collar. He is afebrile. Hemodynamically stable. He has decided he does not want to proceed with bronchoscopy and biopsies. He is decided he would prefer to go home with hospice. Follow-up sputum culture revealed no growth. Bronchial alveolar lavage is revealed no growth. Blood cultures revealed no growth. Count 15.4. Hemoglobin 10.6. Platelets 557. Sodium 139. Potassium 5.3. Bicarb 28. BUN 21. Creatinine 0.5. Glucose 91. He is being nourished with Jevity at 65 MLS per hour. He remains on DuoNeb and elations, Pulmicort and performing scintillations, Solu-Medrol. Antibiotics in the form of Augmentin. Objective - Vital Signs Vital signs: Vital Signs Temp 97.5 F L 12/17/23 07:03 Pulse 68 12/17/23 11:27 Resp 16 12/17/23 07:03 BP 119/67 12/17/23 07:03 Pulse Ox 94 L 12/17/23 08:05 FiO2 40 12/17/23 11:19 Intake & Output 12/16/23 12/17/23 12/17/23 18:59 06:59 18:59 Intake Total 237 Balance 237 Weight 62.1 kg Intake: Tube Feeding 237 Other: Voiding Method Toilet Toilet Toilet Urinal Urinal Urinal - Exam GENERAL EXAM: Alert, 58-year-old male patient, sitting up in bed, on 40% FiO2 via trach collar, in no apparent distress. HEAD: Normocephalic. EYES: Normal reaction of pupils, equal size. NOSE: Clear with pink turbinates. THROAT: No erythema or exudates. NECK: Tracheostomy tube secured in place. No masses, no JVD. CHEST: No chest wall deformity. LUNGS: Equal air entry with crackles of the right lung base. CVS: S1 and S2 normal with no audible murmur, regular rhythm. ABDOMEN: No hepatosplenomegaly, normal bowel sounds, no guarding or rigidity. SPINE: No scoliosis or deformity SKIN: No rashes CENTRAL NERVOUS SYSTEM: No focal deficits, tone is normal in all 4 extremities. EXTREMITIES: There is no peripheral edema. No clubbing, no cyanosis. Peripheral pulses are intact. - Labs CBC & Chem 7: 12/17/23 06:02 12/17/23 06:02 Labs: Abnormal Lab Results - Last 24 Hours (Table) 12/16/23 12/16/23 12/16/23 Range/Units 12:10 17:05 20:10 WBC (4.50-10.00) X 10*3/uL RBC (4.40-5.60) X 10*6/uL Hgb (13.0-17.0) g/dL Hct (39.6-50.0) % MCV (80.0-97.0) FL MCHC (32.0-37.0) g/dL RDW (11.5-14.5) % Plt Count (140-440) X 10*3/uL Immature Gran # (0.00-0.04) X 10*3/uL Neutrophils # (1.80-7.70) X 10*3/uL Lymphocytes # (0.90-5.00) X 10*3/uL Eosinophils # (0.04-0.35) X 10*3/uL Creatinine (0.6-1.5) mg/dL BUN/Creatinine Ratio (12.00-20.00) Ratio POC Glucose (mg/dL) 111 H 129 H 145 H (70-110) mg/dL Calcium (8.7-10.3) mg/dL 12/17/23 12/17/23 Range/Units 06:02 06:02 WBC 15.47 H (4.50-10.00) X 10*3/uL RBC 3.50 L (4.40-5.60) X 10*6/uL Hgb 10.6 L (13.0-17.0) g/dL Hct 34.4 L (39.6-50.0) % MCV 98.3 H (80.0-97.0) FL MCHC 30.8 L (32.0-37.0) g/dL RDW 14.6 H (11.5-14.5) % Plt Count 557 H (140-440) X 10*3/uL Immature Gran # 0.28 H (0.00-0.04) X 10*3/uL Neutrophils # 14.19 H (1.80-7.70) X 10*3/uL Lymphocytes # 0.65 L (0.90-5.00) X 10*3/uL Eosinophils # 0 L (0.04-0.35) X 10*3/uL Creatinine 0.5 L (0.6-1.5) mg/dL BUN/Creatinine Ratio 42.00 H (12.00-20.00) Ratio POC Glucose (mg/dL) (70-110) mg/dL Calcium 8.4 L (8.7-10.3) mg/dL Assessment and Plan Assessment: Acute hypoxic respiratory failure secondary to right lower lung opacification and possible postobstructive pneumonia. CT scan of the chest reveals lobular heterogenous mass with internal cystic and necrotic components centered in the right middle lobe. This is favored to represent interval progression the pa tient's known malignancy with superimposed infection not excluded. Emphysema changes noted. Small right pleural effusion. Status post bronchoscopy with BAL on December 10, 2023. Follow-up CT scan of the abdomen reveals clearer evidence of a large right middle lobe neoplastic mass and right pleural effusion. Bronchial wash cultures negative for malignancy. Will plan for transbronchial biopsies A pril 5, 2024. 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 PET scan from September 2023 revealed persistent uptake in the posterior lateral right cord level compatible with neoplasm, there was a new lung nodule identified with elevated SUV suspicious for neoplasm in the right lower lobe. CT scan of the neck from 12/10/2023 is reveals an ill- defined left laryngeal mass. No visible lymphadenopathy Dysphagia secondary to above status post PEG tube placement in May 2023 Hypothyroidism Graves' disease Chronic and ongoing tobacco dependence Obstructive pulmonary disease Plan: The patient was seen and evaluated Labs and medications reviewed He has declined any further procedures or biopsies He wishes to go home with hospice Change Pulmicort and Perforomist to Symbicort Continue albuterol HFA Solu-Medrol converted to prednisone taper Hospice consult placed This patient was seen independently by the pulmonary nurse practitioner addressing pulmonary issues I have personally seen and examined the patient, performed the documentation and the assessment and plan as written. Number of minutes spent on the visit: 22.
--- NOTE | 2023-12-17 15:40 | P.PN ---
Subjective Progress Note Date: 12/17/23 Principal diagnosis: Reason for follow-up is pneumonia Patient is a 58-year-old male past medical history significant for COPD syncope history of laryngeal cancer with radiation and chemotherapy and the patient did have tracheostomy and PEG tube insertion presenting to the ER for evaluation of increasing shortness of breath generalized bodyaches, patient have CT of the chest with evidence of lobular heterogeneous mass with internal cystic and necrotic components centered in the right middle lobe and concern for possible infection. On today's evaluation that is 12/17/2023,the patient remains to be afebrile, patient is on 10 L trach collar supplemental oxygen and denies any shortness of breath no chest pain or any worsening cough.Patient denies having any nausea or vomiting, no abdominal pain and no diarrhea. Patient white count of 15.47, creatinine 0.5 BAL culture negative Objective - Vital Signs Vital signs: Vital Signs Temp 97.5 F L 12/17/23 07:03 Pulse 68 12/17/23 11:27 Resp 16 12/17/23 07:03 BP 119/67 12/17/23 07:03 Pulse Ox 94 L 12/17/23 08:05 FiO2 40 12/17/23 11:19 Intake & Output 12/16/23 12/17/23 12/17/23 18:59 06:59 18:59 Intake Total 237 Balance 237 Weight 62.1 kg Intake: Tube Feeding 237 Other: Voiding Method Toilet Toilet Toilet Urinal Urinal Urinal - Exam GENERAL DESCRIPTION: Middle-age male up in bed in no distress RESPIRATORY SYSTEM: Unlabored breathing , decreased breath sounds at bases HEART: S1 S2 regular rate and rhythm , ABDOMEN: Soft , no tenderness EXTREMITIES: No edema feet - Labs CBC & Chem 7: 12/17/23 06:02 12/17/23 06:02 Labs: Abnormal Lab Results - Last 24 Hours (Table) 12/16/23 12/16/23 12/16/23 Range/Units 12:10 17:05 20:10 WBC (4.50-10.00) X 10*3/uL RBC (4.40-5.60) X 10*6/uL Hgb (13.0-17.0) g/dL Hct (39.6-50.0) % MCV (80.0-97.0) FL MCHC (32.0-37.0) g/dL RDW (11.5-14.5) % Plt Count (140-440) X 10*3/uL Immature Gran # (0.00-0.04) X 10*3/uL Neutrophils # (1.80-7.70) X 10*3/uL Lymphocytes # (0.90-5.00) X 10*3/uL Eosinophils # (0.04-0.35) X 10*3/uL Creatinine (0.6-1.5) mg/dL BUN/Creatinine Ratio (12.00-20.00) Ratio POC Glucose (mg/dL) 111 H 129 H 145 H (70-110) mg/dL Calcium (8.7-10.3) mg/dL 12/17/23 12/17/23 Range/Units 06:02 06:02 WBC 15.47 H (4.50-10.00) X 10*3/uL RBC 3.50 L (4.40-5.60) X 10*6/uL Hgb 10.6 L (13.0-17.0) g/dL Hct 34.4 L (39.6-50.0) % MCV 98.3 H (80.0-97.0) FL MCHC 30.8 L (32.0-37.0) g/dL RDW 14.6 H (11.5-14.5) % Plt Count 557 H (140-440) X 10*3/uL Immature Gran # 0.28 H (0.00-0.04) X 10*3/uL Neutrophils # 14.19 H (1.80-7.70) X 10*3/uL Lymphocytes # 0.65 L (0.90-5.00) X 10*3/uL Eosinophils # 0 L (0.04-0.35) X 10*3/uL Creatinine 0.5 L (0.6-1.5) mg/dL BUN/Creatinine Ratio 42.00 H (12.00-20.00) Ratio POC Glucose (mg/dL) (70-110) mg/dL Calcium 8.4 L (8.7-10.3) mg/dL Assessment and Plan (1) Leukocytosis Current Visit: Yes Status: Acute Code(s): D72.829 - ELEVATED WHITE BLOOD CELL COUNT, UNSPECIFIED SNOMED Code(s): 598729367 (2) Pneumonia Current Visit: Yes Status: Acute Priority: High Code(s): J18.9 - PNEUMONIA, UNSPECIFIED ORGANISM SNOMED Code(s): 403696158 Plan: 1patient presented to hospital with fever increasing shortness of breath and is bringing up some purulent sputum in this patient noticed to have significant normality on the CT of the chest concerning for possible necrotic tumor versus a component of postobstructive pneumonia likely gram-negative 2-sputum culture as well as BAL cultures so far negative 3-patient did have some clinical improvement, culture negative and resistant pathogen patient to continue with a short course of oral Augmentin Dictation was produced using [email or web address] dictation software. please excuse any grammatical, word or spelling errors. Time with Patient: Less than 30
--- NOTE | 2023-12-17 15:40 | P.PN ---
Subjective Progress Note Date: 12/17/23 No acute events. Patient resting comfortably in bed. Bronchial washing cytology negative for malignancy. Pt was scheduled today for repeat bronch with biopsy, however is now stating that he no longer wants to proceed with procedure and would like to go home with hospice Objective - Vital Signs Vital signs: Vital Signs Temp 97.9 F 12/17/23 13:14 Pulse 78 12/17/23 13:21 Resp 16 12/17/23 13:14 BP 103/62 12/17/23 13:14 Pulse Ox 89 L 12/17/23 13:21 FiO2 40 12/17/23 11:19 Intake & Output 12/16/23 12/17/23 12/17/23 18:59 06:59 18:59 Intake Total 237 200 Balance 237 200 Weight 62.1 kg Intake: Tube Feeding 237 200 Other: Voiding Method Toilet Toilet Toilet Urinal Urinal Urinal - Constitutional General appearance: Present: no acute distress - EENT Eyes: Present: EOMI ENT: Present: hearing grossly normal - Respiratory Details: breathing is even and unlabored - Cardiovascular Details: skin warm and dry - Integumentary Integumentary: Absent: cyanotic - Musculoskeletal Musculoskeletal: Present: strength equal bilaterally - Psychiatric Psychiatric: Present: A&O x's 3 - Labs CBC & Chem 7: 12/17/23 06:02 12/17/23 06:02 Labs: Abnormal Lab Results - Last 24 Hours (Table) 12/16/23 12/16/23 12/17/23 Range/Units 17:05 20:10 06:02 WBC 15.47 H (4.50-10.00) X 10*3/uL RBC 3.50 L (4.40-5.60) X 10*6/uL Hgb 10.6 L (13.0-17.0) g/dL Hct 34.4 L (39.6-50.0) % MCV 98.3 H (80.0-97.0) FL MCHC 30.8 L (32.0-37.0) g/dL RDW 14.6 H (11.5-14.5) % Plt Count 557 H (140-440) X 10*3/uL Immature Gran # 0.28 H (0.00-0.04) X 10*3/uL Neutrophils # 14.19 H (1.80-7.70) X 10*3/uL Lymphocytes # 0.65 L (0.90-5.00) X 10*3/uL Eosinophils # 0 L (0.04-0.35) X 10*3/uL Creatinine (0.6-1.5) mg/dL BUN/Creatinine Ratio (12.00-20.00) Ratio POC Glucose (mg/dL) 129 H 145 H (70-110) mg/dL Calcium (8.7-10.3) mg/dL 12/17/23 12/17/23 Range/Units 06:02 11:45 WBC (4.50-10.00) X 10*3/uL RBC (4.40-5.60) X 10*6/uL Hgb (13.0-17.0) g/dL Hct (39.6-50.0) % MCV (80.0-97.0) FL MCHC (32.0-37.0) g/dL RDW (11.5-14.5) % Plt Count (140-440) X 10*3/uL Immature Gran # (0.00-0.04) X 10*3/uL Neutrophils # (1.80-7.70) X 10*3/uL Lymphocytes # (0.90-5.00) X 10*3/uL Eosinophils # (0.04-0.35) X 10*3/uL Creatinine 0.5 L (0.6-1.5) mg/dL BUN/Creatinine Ratio 42.00 H (12.00-20.00) Ratio POC Glucose (mg/dL) 115 H (70-110) mg/dL Calcium 8.4 L (8.7-10.3) mg/dL Assessment and Plan (1) Squamous cell carcinoma of head and neck Current Visit: Yes Status: Acute Priority: High Code(s): C44.42 - SQUAMOUS CELL CARCINOMA OF SKIN OF SCALP AND NECK SNOMED Code(s): 001093091 (2) Cancer associated pain Current Visit: Yes Status: Acute Priority: High Code(s): G89.3 - NEOPLASM RELATED PAIN (ACUTE) (CHRONIC) SNOMED Code(s): 81834538413499 (3) Pneumonia Current Visit: Yes Status: Acute Priority: High Code(s): J18.9 - PNEUMONIA, UNSPECIFIED ORGANISM SNOMED Code(s): 782523838 Plan: Pneumonia: Presented to the with complaints of shortness of breath, fever and right-sided chest pain and throat pain. Patient states he has been having increased sputum production and had a fever of 101.0. Denies any recent hemoptysis. -Upon admission chest x-ray revealed diffuse opacification of the right lower lung. CT chest with contrast showed lobular heterogeneous mass with internal cystic and necrotic component centered in the right middle lobe, in the region of prior FDG avid lung nodule. Favored to represent interval progression of the patient's known malignant disease, with superimposed infection not excluded. Small right pleural effusion. And emphysematous changes of the lungs. -Patient underwent bronchoscopy with BAL with Dr. Us with findings of mucous plug in the right middle lobe and right lower lobe bronchus. 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 PET scan was ordered by radiation oncology. It appears to be some uptake in the right vocal cord, and also in an opacity in the right lung. Patient was advised that these could be nonspecific and represent areas of inflammation. We will await evaluation and review of the scan by radiation oncology. Plan was to f/u in [address] scans if PET scan findings were not not found to be indicative of residual or new malignancy on upcoming evaluation by radiation oncology and ENT. Patient followed up with ENT and had biopsy of right vocal cord lesion on 11/11/2023 which was positive for malignancy. He was recommended for laryngectomy, however patient decided that he did not want to go through with surgery and also did not follow-up with radiation oncology for recommended SBRT of right lung -CT abdomen pelvis without contrast revealed findings in the inferior chest redemonstrated, including large right middle lobe neoplastic mass and right pleural effusion without significant change. No clear evidence of mass or metastatic adenopathy in the abdomen or pelvis. Questionable thickening of the proximal gastric wall, and distal rectal wall versus incomplete distention. CT soft tissue neck without contrast revealed ill-defined left laryngeal mass with mild narrowing of the airway. No visible lymphadenopathy. CT findings and concerns for malignancy were discussed with patient, in the larynx and right lung. Discussed that concern is that lung findings is metastatic disease vs new primary and will have to awaiting pending cytology, but are still recommending surgical resection of laryngeal mass and SBRT of right lung. Patient is wanting to await findings of cytology/workup, and will consider further evaluation and surgical intervention with ENT pending current workup. He has stated that he is unsure if he wants to proceed with surgery if malignancy is confirmed within the right lung. -Bronchial washing cytology negative for malignancy. Results discussed with patient. Pulmonology has seen patient and recommended repeat bronch with biopsy, however patient is reluctant at this time. Discussed with patient that we agree with repeat bronch and biopsy. He is apprehensive for further procedures at this time, but states he would think about it more -Patient has upcoming follow-up with Dr. Moreira on 01/09. Will obtain PET CT outpt upon discharge. Will further discuss goals of care and treatment recommendations at scheduled follow up *Pt was scheduled today for repeat bronch with biopsy, however is now stating that he no longer wants to proceed with procedure and would like to go home with hospice. Spoke with patient today regarding our recommendations and the need for repeat bronch/biopsy to confirm malignancy within lung. Pt stating that he no longer wants to undergo further workup or receive any treatment for his malignancy, and that he wishes to go home with hospice care. We discussed that if he changes his mind in regards to treatment and pursing further workup to pl [facility] call clinic and we can schedule f/u appt to further discuss treatment options and goals of care. Patient verbalized understanding Hospice has been consulted Dr toneyests: I have performed H&P and developed impression and plan of care for patient, discussed with dictator. I agree with dictated note, documented as a scribe
[2023-12-17 16:13] VITALS: BP 100/61; PULSE 64; TEMP 97.8
[2023-12-17 17:06] LABS: Glucose,Whole Blood 124 mg/dL (70-110)
--- NOTE | 2023-12-19 19:07 | P.DS ---
Providers Date of admission: 12/09/23 16:18 Attending physician: Ronny Johns Consults: 12/09/23 16:17 Consult Physician Routine Consulting Provider: Luis Whipple Consult Reason/Comments: pna/trach Do you want consulting provider notified?: Yes 12/09/23 16:22 Consult Physician Routine Consulting Provider: Bonnie Bernard Consult Reason/Comments: known Do you want consulting provider notified?: Yes 12/10/23 12:05 Consult Physician Routine Consulting Provider: Chadd Jc Consult Reason/Comments: pneumonia Do you want consulting provider notified?: Yes Primary care physician: Stated None Hospital Course: Final Diagnosis Chronic obstructive pulmonary disease with acute exacerbation Necrotic tumor vs. postobstructive pneumonia, pathology of bronchial washings is negative for malignancy - patient does not want to proceed with recommending lung biopsy on Wednesday. Leukocytosis component of steroid induced repeat labs in the AM steroids are decreased expecting white count to improve Hypernatremia due to poor oral water/free water flushes. Patient started on D5 water, sodium level normalized. Hyperkalemia treated with cocktail of insulin,dextrose,and calcium gluconate. Potassium normalized. Left laryngeal mass on CT scan with history of laryngeal cancer status post trach and PEG tube. Diabetes Mellitus type 2 continue with accuchecks ACHS and sliding scale insulin hemoglobin A1C 6.9. Hx of Graves Disease Hx of smoking Discharge Disposition Patient stable for discharge home with overall guarded prognosis. He has requested to return home with hospice. He does not want lung biopsy at this time although he was also scheduled to undergo lung biopsy with his [employer] worker Dr. Whipple outpatient at the end of the month. Patient was recommended by ID to discharge Continue oral prednisone taper and oral augmetin as recommended on discharge. Patient does admit to continued cigarette smoking and is advised that he cannot smoke while on oxygen support. Hospital Course This is a 58-year-old male patient with a known history of laryngeal cancer status post tracheostomy tube insertion, status post PEG tube insertion, chronic and ongoing tobacco dependence, hypothyroidism, Graves' disease, diverticulosis. Presenting to the ER for evaluation of increasing shortness of breath generalized bodyaches, patient have CT of the chest with evidence of lobular heterogeneous mass with internal cystic and necrotic components centered in the right middle lobe and concern for possible infection. This is favored to represent interval progression the patient's known malignancy with superimposed infection not excluded. And emphysema changes noted. Small right pleural effusion. White count 22.1. Hemoglobin 11.4. Platelets 655. Sodium 140. Potassium 4.6. Bicarb 29. BUN 33. Creatinine 0.8. Viral screen negative. Admitted to the hospital with pulmonary, infectious disease and oncology consultation. Started on empiric antibiotics, as well as IV solumedrol, bronchod ilators. CT scan of the abdomen and pelvis revealed large right middle lobe neoplastic mass and right pleural effusion. No clear evidence of mass or metastatic adenopathy in the abdomen or pelvis. CT scan of the neck reveals an ill-defined left laryngeal mass. No visible lymphadenopathy. Patient underwent bronchoscopy and the bronchial washings did reveal no growth and cultures have been negative so far. He had persistent leukocytosis which prolonged hospital stay. He was recommended to undergo biopsy of the right lung tumor and patient declined. He was requiring Oxygen support and was continued on PEG tube feedings. Patient declined lung biopsy and requested hospice as he had previously requested information from hospice services on an outpatient basis. He was discharged home with [facility] hosp[facility]. Please see medication reconciliation for a list of current medications. Thank you for allowing us to participate in the care of this patient. The impression and plan of care has been dictated by Jessie Rodriguez Nurse Practitioner as directed. Dr. Nithin MD I have performed a history and physical examination and medical decision making of this patient, discussed the same with the dictator, and agree with the dictators assessment and plan as written, documented as a scribe. Based on total visit time, I have performed more than 50% of this visit. Patient Condition at Discharge: Fair Plan - Discharge Summary New Discharge Prescriptions: Continue Omeprazole [PriLOSEC] 20 mg PEG/G-TUBE BID PRN PRN Reason: acid reflux Ibuprofen [Motrin] 800 mg PEG/G-TUBE Q8H PRN PRN Reason: Pain Or Fever > 100.5 No Action Acetaminophen Suppository [Tylenol Suppository] 650 mg RECTAL Q4H PRN PRN Reason: Fever And/ Or Pain bisacodyL [Dulcolax] 10 mg RECTAL DAILY PRN PRN Reason: Constipation MORPHINE ORAL DAISY CONC 20mg/mL [Roxanol Oral Soln Conc 20MG/ML] 5 mg PEG/G- TUBE Q4HR PRN PRN Reason: Pain predniSONE See Taper PEG/G-TUBE DIRECTED fentaNYL 25MCG/HR PATCH [Duragesic 25MCG/HR] 1 patch TRANSDERM Q72H Haloperidol Oral Soln [Haldol Oral Soln] 1 mg PEG/G-TUBE Q4H PRN PRN Reason: Severe Agitation/Nausea HYDROcodone/APAP 5-325MG [Willard 5-325] 2 tab PEG/G-TUBE Q4H PRN PRN Reason: Pain LORazepam [Ativan] 1 mg PEG/G-TUBE Q4H PRN PRN Reason: Anxiety/Agitation Scopolamine [Scopolamine 1 MG/72 HR patch] 1 patch TRANSDERM Q72H PRN PRN Reason: Nausea Albuterol Sulfate/Budesonide [Airsupra 90-80 Mcg Inhaler] 1 puff INHALATION RT-BID Amoxic-Pot Clav 875-125Mg [Augmentin 875-125] 1 tab PEG/G-TUBE Q12HR Discharge Medication List Omeprazole [PriLOSEC] 20 mg PEG/G-TUBE BID PRN 05/20/23 [History] Ibuprofen [Motrin] 800 mg PEG/G-TUBE Q8H PRN 12/09/23 [History] Acetaminophen Suppository [Tylenol Suppository] 650 mg RECTAL Q4H PRN 12/19/23 [History] Albuterol Sulfate/Budesonide [Airsupra 90-80 Mcg Inhaler] 1 puff INHALATION RT- BID 12/19/23 [History] Amoxic-Pot Clav 875-125Mg [Augmentin 875-125] 1 tab PEG/G-TUBE Q12HR 12/19/23 [History] HYDROcodone/APAP 5-325MG [Willard 5-325] 2 tab PEG/G-TUBE Q4H PRN 12/19/23 [History] Haloperidol Oral Soln [Haldol Oral Soln] 1 mg PEG/G-TUBE Q4H PRN 12/19/23 [History] LORazepam [Ativan] 1 mg PEG/G-TUBE Q4H PRN 12/19/23 [History] MORPHINE ORAL DAISY CONC 20mg/mL [Roxanol Oral Soln Conc 20MG/ML] 5 mg PEG/G-TUBE Q4HR PRN 12/19/23 [History] Scopolamine [Scopolamine 1 MG/72 HR patch] 1 patch TRANSDERM Q72H PRN 12/19/23 [History] bisacodyL [Dulcolax] 10 mg RECTAL DAILY PRN 12/19/23 [History] fentaNYL 25MCG/HR PATCH [Duragesic 25MCG/HR] 1 patch TRANSDERM Q72H 12/19/23 [History] predniSONE See Taper PEG/G-TUBE DIRECTED 12/19/23 [History] Follow up Appointment(s)/Referral(s): [facility], [NON-STAFF] - 1 Week Hospice,[facility] [NON-STAFF] - 1-2 Days Jimmy Morales MD [REFERRING] - 1 Week (Contact Dr. Morales for a follow up appointment.) Patient Instructions/Handouts: Hospice (DC), Pneumonia (DC) Activity/Diet/Wound Care/Special Instructions: Continue oral prednisone taper and oral antibiotics as recommended on discharge. Patient will be discharged with home oxygen. Discharge Disposition: HOME WITH HOME HEALTH SERVICES
== END 2023-12-17 19:30 | disposition hospice, home (50) | DRG 193 ==
LOC: EC 12:47 → 4SSUR 16:18 → 5NMEDONC 17:56
PROVIDERS: ADMIT Hospitalist; ATTEND Hospitalist
PROC: 0BCB8ZZ Extirpation of Matter from Left Lower Lobe Bronchus, Via Natural or Artificial Opening Endoscopic (ICD-10-PCS; 2023-12-10)
PROC: 0BC58ZZ Extirpation of Matter from Right Middle Lobe Bronchus, Via Natural or Artificial Opening Endoscopic (ICD-10-PCS; 2023-12-10)
PROC: 0B9F8ZX Drainage of Right Lower Lung Lobe, Via Natural or Artificial Opening Endoscopic, Diagnostic (ICD-10-PCS; principal; 2023-12-10 08:00)
PROC: 0B9D8ZX Drainage of Right Middle Lung Lobe, Via Natural or Artificial Opening Endoscopic, Diagnostic (ICD-10-PCS; 2023-12-10 08:00)
PROC: 3E0H76Z Introduction of Nutritional Substance into Lower GI, Via Natural or Artificial Opening (ICD-10-PCS; 2023-12-11)
DX: J18.9 Pneumonia, unspecified organism (principal); E43 Unspecified severe protein-calorie malnutrition; J96.01 Acute respiratory failure with hypoxia; J44.1 Chronic obstructive pulmonary disease with (acute) exacerbation; E87.0 Hyperosmolality and hypernatremia; J98.19 Other pulmonary collapse; J44.0 Chronic obstructive pulmonary disease with (acute) lower respiratory infection; Z93.0 Tracheostomy status; R16.0 Hepatomegaly, not elsewhere classified; J39.8 Other specified diseases of upper respiratory tract; C76.0 Malignant neoplasm of head, face and neck; Z99.81 Dependence on supplemental oxygen; E11.9 Type 2 diabetes mellitus without complications; Z93.1 Gastrostomy status; Z51.5 Encounter for palliative care; E03.9 Hypothyroidism, unspecified; G89.3 Neoplasm related pain (acute) (chronic); R91.1 Solitary pulmonary nodule; R13.10 Dysphagia, unspecified; J98.4 Other disorders of lung; T38.0X5A Adverse effect of glucocorticoids and synthetic analogues, initial encounter; F17.210 Nicotine dependence, cigarettes, uncomplicated; J38.7 Other diseases of larynx; M54.2 Cervicalgia; N28.1 Cyst of kidney, acquired; M54.9 Dorsalgia, unspecified; R19.7 Diarrhea, unspecified; D72.828 Other elevated white blood cell count; E87.5 Hyperkalemia; Z68.20 Body mass index [BMI] 20.0-20.9, adult; Z85.21 Personal history of malignant neoplasm of larynx; Z92.3 Personal history of irradiation; Z92.21 Personal history of antineoplastic chemotherapy; Z85.01 Personal history of malignant neoplasm of esophagus; Z86.39 Personal history of other endocrine, nutritional and metabolic disease
CPT/HCPCS: 31615; 31624; 36415; 70490; 71045; 71046; 71260; 74176; 76705; 80048; 80053; 82607; 82746; 83036; 83735; 83880; 84100; 84132; 84145; 84484; 85025; 85610; 85730; 87040; 87070; 87102; 87116; 87205; 87206; 87496; 87498; 87502; 87529; 87634; 87635; 87636; 87798; 88108; 88305; 89050; 93005; 94640; 94760; 96361; 96365; 96367; 96375; 96376; 99291

== ENCOUNTER 2023-12-19 10:29 | Inpatient (IN) | payer BC, OTHER ==
--- NOTE | 2023-12-19 11:51 | XR ---
EXAMINATION TYPE: XR chest 1V portable DATE OF EXAM: 12/19/2023 11:23 AM CLINICAL INDICATION:Male, 58 years old with history of sob; [facility] COMPARISON: Chest radiographs from 12/16/2023 TECHNIQUE: XR chest 1V portable Frontal view of the chest. FINDINGS: Lungs/Pleura: Increased lucency throughout the right lung which is new from prior. Blunting of the ri ght costophrenic angle. There is no evidence of left pleural effusion, focal consolidation, or left p neumothorax. Pulmonary vascularity: Unremarkable. Heart/mediastinum: Cardiomediastinal silhouette is unremarkable. Musculoskeletal: No acute osseous pathology. Other findings: None Lines/Tubes: Tracheostomy cannula tip projecting over the trachea. IMPRESSION: Increased lucency throughout the right lung concerning for pneumothorax. Small pleural effusion may a lso be present. Findings communicated to Jagjit Gramajo, PAC on 12/19/2023 11:[address] Edmar Garcia.
[2023-12-19 12:37] LABS: ALT 90 U/L (4-49); AST 47 U/L (17-59); African American GFR (CKD) >90 (>60 ml/min/1.73 sqM); Albumin 2.6 g/dL (3.5-5.0); Alkaline Phosphatase 99 U/L (38-126); Anion Gap 7 mmol/L; Blood Urea Nitrogen 19 mg/dL (9-20); Carbon Dioxide 22 mmol/L (22-30); Chloride 105 mmol/L (98-107); Glucose 64 mg/dL (74-99); Non-African American GFR(CKD) >90 (>60 ml/min/1.73 sqM); Sodium 134 mmol/L (137-145); Total Bilirubin 1.1 mg/dL (0.2-1.3); Total Protein 5.5 g/dL (6.3-8.2)
[2023-12-19 12:39] LABS: Potassium 5.1 mmol/L (3.5-5.1)
--- NOTE | 2023-12-19 12:49 | ED ---
General Adult HPI - General Chief complaint: Weakness Stated complaint: SOB Time Seen by Provider: 12/19/23 10:36 Source: patient, family, EMS, RN notes reviewed Mode of arrival: EMS Limitations: no limitations, physical limitation - History of Present Illness Initial comments: 58-year-old male presents emergency room via EMS chief complaint increasing s hortness of breath, hemoptysis. Patient was recent hospital discharge after deciding to go on hospice. Patient states he has throat cancer in which she was receiving treatment for. Patient states he has a trach and was having large amount of secretions out of that he had a recent bronchoscopy. Patient states that now he has had increasing dyspnea and bloody sputum. No reports of fever. - Related Data Home Medications Medication Instructions Recorded Confirmed Omeprazole [PriLOSEC] 20 mg PO BID PRN 05/20/23 12/09/23 Acetaminophen Tab [Tylenol] 500 mg PO Q6H PRN 12/09/23 12/09/23 Ibuprofen [Motrin] 800 mg PO Q8H PRN 12/09/23 12/09/23 Previous Rx's Medication Instructions Recorded Albuterol Sulfate/Budesonide 1 puff INHALATION BID #10.7 gram 12/17/23 [Airsupra 90-80 Mcg Inhaler] Amoxic-Pot Clav 875-125Mg 1 each PO Q12HR 7 Days #14 tab 12/17/23 [Augmentin 875-125] predniSONE 0 mg PO DIRECTED 12 Days #18 tab 12/17/23 Allergies Allergy/AdvReac Type Severity Reaction Status Date / Time No Known Allergies Allergy Verified 12/19/23 10:34 Review of Systems ROS Statement: Those systems with pertinent positive or pertinent negative responses have been documented in the HPI. ROS Other: All systems not noted in ROS Statement are negative. Past Medical History Past Medical History: Cancer, COPD, Syncope, Thyroid Disorder Additional Past Medical History / Comment(s): Graves disease, diverticulosis, esophageal cancer with radiation and chemolast 08/05 at [facility] History of Any Multi-Drug Resistant Organisms: None Reported Past Surgical History: Tonsillectomy Additional Past Surgical History / Comment(s): vasectomy, biopsy of throat, trach Past Anesthesia/Blood Transfusion Reactions: No Reported Reaction Past Psychological History: No Psychological Hx Reported Smoking Status: Current every day smoker Past Alcohol Use History: None Reported Past Drug Use History: None Reported - Past Family History Father History Unknown: Yes General Exam Limitations: no limitations, physical limitation General appearance: alert, in no apparent distress Head exam: Present: atraumatic, normocephalic, normal inspection ENT exam: Present: mucous membranes moist. Absent: normal exam (Trach noted) Neck exam: Present: normal inspection. Absent: tenderness, meningismus, lymphadenopathy Respiratory exam: Present: wheezes, decreased breath sounds. Absent: normal lung sounds bilaterally, respiratory distress, rales, rhonchi, stridor Cardiovascular Exam: Present: regular rate, normal rhythm, normal heart sounds. Absent: systolic murmur, diastolic murmur, rubs, gallop, clicks GI/Abdominal exam: Present: soft, normal bowel sounds. Absent: distended, tenderness, guarding, rebound, rigid Course Vital Signs 12/19/23 12/19/23 12/19/23 10:31 10:58 13:00 Temperature 98.4 F Pulse Rate 90 90 Respiratory 24 Rate Blood Pressure 111/69 102/87 O2 Sat by Pulse 97 90 L Oximetry Fraction of 28 Inspired Oxygen (FIO2) 12/19/23 12/19/23 14:00 16:07 Temperature Pulse Rate 86 86 Respiratory 16 16 Rate Blood Pressure 103/67 119/74 O2 Sat by Pulse 95 93 L Oximetry Fraction of Inspired Oxygen (FIO2) Medical Decision Making - Medical Decision Making Was pt. sent in by a medical professional or institution (DONALD Bellamy, LICENSED PSYCHOLOGIST MANAGER, urgent care, hospital, or long term...) When possible be specific @ -No Did you speak to anyone other than the patient for history (EMS, parent, family, police, friend...)? What history was obtained from this source @ -Providing some past medical history Did you review nursing and triage notes (agree or disagree)? Why? @ -I reviewed and agree with nursing and triage notes Were old charts reviewed (outside hosp., previous admission, EMS record, old EKG, old radiological studies, urgent care reports/EKG's, long term records)? Report findings @ -[Reviewed recent admission, consults, bronchoscopy, labs Differential Diagnosis (chest pain, altered mental status, abdominal pain women, abdominal pain men, vaginal bleeding, weakness, fever, dyspnea, syncope, hea dache, dizziness, GI bleed, back pain, seizure, CVA, palpatations, mental health, musculoskeletal)? @ -Not applicable EKG interpreted by me (3pts min.). @ -As above X-rays interpreted by me (1pt min.). @ -Chest x-ray 1 view showing concerns of pneumothorax CT interpreted by me (1pt min.). @ -CT chest shows large pneumothorax on the right with some fluid noted, retained secretions U/S interpreted by me (1pt. min.). @ -None done What testing was considered but not performed or refused? (CT, X-rays, U/S, labs)? Why? @ -None What meds were considered but not given or refused? Why? @ -None Did you discuss the management of the patient with other professionals (professionals i.e. , PA, LICENSED PSYCHOLOGIST MANAGER, lab, RT, psych nurse, social services coordinator, offset press operator, teacher, sustainability officer, case planner)? Give summary @ -Dr. Orellana was contacted regarding x-ray and CT findings recommended chest tube. I did discuss the case with Jessie on-call for [facility] which patient is readmitted hospice nurse Yasmin was updated. Was smoking cessation discussed for >3mins.? @ -No Was critical care preformed (if so, how long)? @ -35 minutes Were there social determinants of health that impacted care today? How? (Homelessness, low income, unemployed, alcoholism, drug addiction, transportation, low edu. Level, literacy, decrease access to med. care, residential, rehab)? @ -No Was there de-escalation of care discussed even if they declined (Discuss DNR or withdrawal of care, Hospice)? DNR status @ -No What co-morbidities impacted this encounter? (DM, HTN, Smoking, COPD, CAD, Cancer, CVA, ARF, Chemo, Hep., AIDS, mental health diagnosis, sleep apnea, morbid obesity)? @ -Laryngal cancer, COPD Was patient admitted / discharged? Hospital course, mention meds given and route, prescriptions, significant lab abnormalities, going to OR and other pertinent info. @ -Admitted patient not have a large pneumothorax, chest tube was placed. Patient was placed on IV antibiotics consults to pulmonology, oncology admitted to hospitalist hospitalist was updated Undiagnosed new problem with uncertain prognosis? @ -No Drug Therapy requiring intensive monitoring for toxicity (Heparin, Nitro, Insulin, Cardizem)? @ -No Were any procedures done? @ -No Diagnosis/symptom? @ -Pneumothorax, laryngal mass, lung mass, pneumonia, tracheitis Acute, or Chronic, or Acute on Chronic? @ -Acute Uncomplicated (without systemic symptoms) or Complicated (systemic symptoms)? @ -Complicated Side effects of treatment? @ -No Exacerbation, Progression, or Severe Exacerbation? @ -No Poses a threat to life or bodily function? How? (Chest pain, [place], MA, pneumonia, PE, COPD, DKA, ARF, appy, cholecystitis, CVA, Diverticulitis, Homicidal, Suicidal, threat to staff... and all critical care pts) @ -Yes cancer, pneumothorax, respiratory failure - Lab Data Result diagrams: 12/19/23 11:27 12/19/23 11:27 Lab Results 12/19/23 12/19/23 12/19/23 Range/Units 11:27 11:27 11:27 WBC 16.9 H (3.8-10.6) k/uL RBC 3.56 L (4.30-5.90) m/uL Hgb 11.0 L (13.0-17.5) gm/dL Hct 34.6 L (39.0-53.0) % MCV 97.3 (80.0-100.0) fL MCH 30.8 (25.0-35.0) pg MCHC 31.7 (31.0-37.0) g/dL RDW 13.7 (11.5-15.5) % Plt Count 475 H (150-450) k/uL MPV 11.2 Neutrophils % 94 % Lymphocytes % 2 % Monocytes % 3 % Eosinophils % 0 % Basophils % 0 % Neutrophils # 15.9 H (1.3-7.7) k/uL Lymphocytes # 0.4 L (1.0-4.8) k/uL Monocytes # 0.4 (0-1.0) k/uL Eosinophils # 0.1 (0-0.7) k/uL Basophils # 0.1 (0-0.2) k/uL Hypochromasia Slight Sodium 134 L (137-145) mmol/L Potassium 5.1 (3.5-5.1) mmol/L Chloride 105 (98-107) mmol/L Carbon Dioxide 22 (22-30) mmol/L Anion Gap 7 mmol/L BUN 19 (9-20) mg/dL Creatinine 0.41 L (0.66-1.25) mg/dL Est GFR (CKD-EPI)AfAm >90 (>60 ml/min/1.73 sqM) Est GFR (CKD-EPI)NonAf >90 (>60 ml/min/1.73 sqM) Glucose 64 L (74-99) mg/dL Plasma Lactic Acid Ricco 0.9 (0.7-2.0) mmol/L Calcium 8.0 L (8.4-10.2) mg/dL Total Bilirubin 1.1 (0.2-1.3) mg/dL AST 47 (17-59) U/L ALT 90 H (4-49) U/L Alkaline Phosphatase 99 (38-126) U/L Total Protein 5.5 L (6.3-8.2) g/dL Albumin 2.6 L (3.5-5.0) g/dL Disposition Clinical Impression: Respiratory failure, Leukocytosis, Acute bacterial tracheitis, Pneumothorax, Pneumonia Disposition: ADMITTED IP TO THIS HOSP Condition: Poor Referrals: Letty Sibley DO [Primary Care Provider] - 1-2 days Time of Disposition: 16:30
--- NOTE | 2023-12-19 13:17 | CT ---
EXAMINATION TYPE: CT chest wo con CT DLP: 253.9 mGycm, Automated exposure control for dose reduction was used. DATE OF EXAM: 12/19/2023 12:34 PM COMPARISON: 12/09/2023. CLINICAL INDICATION:Male, 58 years old with history of sob possible pneumothorax; PHH, SOB, possible pneumothorax TECHNIQUE: Multiple axial images were obtained through the chest. Sagittal and coronal reformats were created for review. Contrast used: mL of (None if empty) Oral contrast used: (None if empty) FINDINGS: LUNGS/ PLEURA: Large right pneumothorax with atelectasis of the right upper lung. There is also compo nent of pleural effusion on the right. There is somewhat heterogenous appearance of the pleural space in the right lower lung with scattered foci of gas scattered throughout what is thought to be comple x pleural effusion. Scattered airspace opacities in the left lower lobe. AIRWAY: Tracheostomy cannula terminating within the trachea. There is secretions within the right [place] n bronchus extending down into the middle lobe and right lower lobe and to lesser extent the right up per lobe large airways. HEART: Size within normal limits. MEDIASTINUM: No gross evidence of adenopathy. VASCULATURE: No aortic aneurysm. Atherosclerosis at the carotid bifurcations. MUSCULOSKELETAL: No acute osseous abnormalities SOFT TISSUES/LYMPH NODES: Unremarkable. LOWER NECK: No significant findings. UPPER ABDOMEN: PEG tube projects over the gastric lumen. Scattered colonic diverticula are partially visualized. Right renal cyst partially visualized. IMPRESSION: 1. Interval development of large right hydropneumothorax with large pneumothorax and small heterogen ous complex right pleural effusion component. There is consolidation changes around the right pulmona ry hilum thought to represent atelectasis with areas of cavitation possibly secondary to prior mass. 2. Retained secretions predominantly within the right main bronchus, right lower and right middle lo be large airways. Correlate for retained secretions. Consider bronchoscopy.
[2023-12-19 13:56] LABS: Basophils # (A) 0.1 k/uL (0-0.2); Basophils % (A) 0 %; Eosinophils # (A) 0.1 k/uL (0-0.7); Eosinophils % (A) 0 %; HCT 34.6 % (39.0-53.0); Hypochromasia Slight; Lymphocytes # (A) 0.4 k/uL (1.0-4.8); Lymphocytes % (A) 2 %; MCH 30.8 pg (25.0-35.0); MCHC 31.7 g/dL (31.0-37.0); MCV 97.3 fL (80.0-100.0); Mean Platelet Volume 11.2; Monocytes # (A) 0.4 k/uL (0-1.0); Monocytes % (A) 3 %; Neutrophils # (A) 15.9 k/uL (1.3-7.7); Neutrophils % (A) 94 %; Platelet Count 475 k/uL (150-450); RBC 3.56 m/uL (4.30-5.90); RDW 13.7 % (11.5-15.5); WBC 16.9 k/uL (3.8-10.6)
[2023-12-19] MEDS: HYDROmorphone 1 MG/ML 1 ML SYRINGE IVP STA ×2 (14:02→16:22)
[2023-12-19] MEDS: LIDOCAINE 1%-EPI 1:100,000 20 ML VIAL SQ STA (16:22)
[2023-12-19] MEDS: LORazepam 2 MG/ML INJ IV STA (16:23)
[2023-12-19] MEDS ORDERED: NALOXONE 0.4 MG/ML 1 ML VIAL IV PRN (16:31)
[2023-12-19] MEDS: SODIUM CHLORIDE 0.9% 1,000 ML IV SCH (17:04)
[2023-12-19] MEDS: PIPERACILLIN-TAZOBACTAM 3.375 GM in SODIUM CHLORIDE 0.9% 100 ML IVPB SCH (17:06)
[2023-12-19] MEDS: HYDROmorphone 0.5 MG/0.5 ML SYRINGE IVP PRN (20:49)
--- NOTE | 2023-12-19 21:13 | XR ---
EXAM: XR chest 1V portable CLINICAL INDICATION:Male, 58 years old with history of Status post chest tube; [facility] COMPARISON: Earlier same day CT chest, and a chest x-ray same day 11:22 AM TECHNIQUE: Chest single view. FINDINGS: Lines/tubes/devices: EKG leads and other extrinsic structures overlie the chest. Tracheostomy tube in place. There has been been placement of a right chest with its tip close to the lung apex. Cardiomediastinum: Cardiac silhouette appears partially obscured but the heart is likely mildly enlarged Stable mediastinal silhouette. Vasculature: No increased pulmonary vasculature. Lungs/pleura: Diffusely coarsened interstitial lung markings, chronic changes likely related to emphysema. There has been been placement of a right chest with its tip close to the lung apex. The large right-s ided hydropneumothorax identified best on the prior CT has significantly decreased in size, with part ial reexpansion of the right lung. There remains heterogeneous mixed attenuation at the right lung ba se with obscuration of the costophrenic angle and hemidiaphragm, likely combination of complex effusi on containing multiple bubbles of gas, and pulmonary parenchymal disease. The left lung and pleural space remain relatively clear. The small airspace opacity in the left mid t o lower lung best seen on CT are not well seen radiographically. No significant left pleural effusion or left pneumothorax. Bones/soft tissues: Osseous structures appear grossly unchanged. No acute osseous pathology evident. Regional soft tissue s appear unremarkable. IMPRESSION: 1. Interval placement of a right chest tube. 2. Significant decrease in size of the right hydropneumothorax, especially the gaseous component. Pa rtial reexpansion of the right lung. 3. Residual heterogeneous opacities at the right lung base likely combination of complex effusion an d pulmonary parenchymal disease.
--- NOTE | 2023-12-20 05:12 | P.CNPUL ---
History of Present Illness Consult date: 12/20/23 Requesting physician: Jagjit Gramajo Reason for consult: lung mass Chief complaint: Dyspnea, hemoptysis History of present illness: Patient is a 58-year-old white male with past medical history significant for known laryngeal cancer status post tracheostomy, PEG tube insertion, chronic ongoing tobacco dependence, hypothyroidism, Graves' disease, diverticulosis. Patient's laryngeal cancer was previously treated with chemoradiation. No current treatment. Patient recently had a PET scan done September, which revealed persistent uptake in the posterior lateral right cord level compatible with neoplasm. There was a right lower lobe pulmonary nodule measuring 1.2 cm with SUV value of 5.2, suspicious for either primary lung cancer versus metastasis of his laryngeal cancer. He had previously declined biopsy in the past, however, the patient had a recent hospital admission 12/09/2023 through 12/17/2023 for possible postobstructive pneumonia. His CT of the chest during that admission showed lobular heterogenous mass with internal cystic and necrotic components centered in the right middle lobe. Favored to represent interval progression of the patient's known malignant disease. He did have a bronchoscopy with transbronchial biopsy and BAL on 12/09/2023. Microbiology has remained negative. Biopsies taking were nondiagnostic for malignancy. Patient ended up going home on hospice care. While at home, he had episodes of hemoptysis and was very short of breath. He ended up calling 911. He has changed his decision to proceed with hospice. In fact, he wants to be full cod e. He is currently in the emergency room, room 1. He is sitting up in the stretcher, in no acute distress, he is currently on room air. He denies any fevers. Denies any chest pain. Denies trauma. Reports hemoptysis, unable to quantify how much. There is a trach collar lying in his lap set at 35%, however, he does not wish to wear this. Follow-up chest CT this admission shows interval development of a large right hydropneumothorax. There was also consolidative changes around the right pulmonary hilum thought to represent atelectasis with areas of cavitation in the area of the the previously described mass. There are retrained secretions predominantly within the right main bronchus, right lower lobe, and right middle lobe large airways. A right-sided chest tube was placed by the ER physician. This is currently hooked to continuous suction at 20 cm of H2O. No observable airleak. Approximately 450 mL of serosanguineous drainage in the collection chamber. A follow-up chest x-r ay shows the right-sided chest tube in place, with a significant decrease in size of the right sided hydro and pneumothorax and partial reexpansion. CBC this admission, WBC count 16.9, hemoglobin 11, hematocrit 34.6, platelets 475. CMP this admission is unremarkable. Normal saline infusing at 75 mL/h. Patient was empirically started on Zosyn. Patient is hemodynamically stable. Review of Systems REVIEW OF SYSTEMS: CONSTITUTIONAL: Denies any recent significant weight loss or weight gain. EYES: Denies change in vision. EARS, NOSE, MOUTH, THROAT: Denies headaches, denies sore throat. CARDIOVASCULAR: Denies chest pain, palpitations or syncopal episodes. RESPIRATORY: See HPI GASTROINTESTINAL: Denies change in appetite, abdominal pain, nausea and vomiting, or diarrhea GENITOURINARY: Denies hematuria, denies infections. MUSKULOSKELETAL: Denies pain, denies swelling. INTEGUMENTARY: Denies rash, denies eczema. NEUROLOGICAL: Denies recent memory loss, no recent seizure activity. PSYCHIATRIC: Denies anxiety, denies depression. HEMATOLOGIC/LYMPHATIC: Denies anemia, denies enlarged lymph node Past Medical History Past Medical History: Cancer, COPD, Syncope, Thyroid Disorder Additional Past Medical History / Comment(s): Graves disease, diverticulosis, esophageal cancer with radiation and chemolast 08/05 at [facility] History of Any Multi-Drug Resistant Organisms: None Reported Past Surgical History: Tonsillectomy Additional Past Surgical History / Comment(s): vasectomy, biopsy of throat, trach Past Anesthesia/Blood Transfusion Reactions: No Reported Reaction Past Psychological History: No Psychological Hx Reported Smoking Status: Current every day smoker Past Alcohol Use History: None Reported Past Drug Use History: None Reported - Past Family History Father History Unknown: Yes Medications and Allergies Home Medications Medication Instructions Recorded Confirmed Type Omeprazole [PriLOSEC] 20 mg PEG/G-TUBE BID PRN 05/20/23 12/19/23 History Ibuprofen [Motrin] 800 mg PEG/G-TUBE Q8H PRN 12/09/23 12/19/23 History Acetaminophen Suppository [Tylenol 650 mg RECTAL Q4H PRN 12/19/23 12/19/23 History Suppository] Albuterol Sulfate/Budesonide 1 puff INHALATION RT-BID 12/19/23 12/19/23 History [Airsupra 90-80 Mcg Inhaler] Amoxic-Pot Clav 875-125Mg 1 tab PEG/G-TUBE Q12HR 12/19/23 12/19/23 History [Augmentin 875-125] HYDROcodone/APAP 5-325MG [Sutton 2 tab PEG/G-TUBE Q4H PRN 12/19/23 12/19/23 History 5-325] Haloperidol Oral Soln [Haldol Oral 1 mg PEG/G-TUBE Q4H PRN 12/19/23 12/19/23 History Soln] LORazepam [Ativan] 1 mg PEG/G-TUBE Q4H PRN 12/19/23 12/19/23 History MORPHINE ORAL DAISY CONC 20mg/mL 5 mg PEG/G-TUBE Q4HR PRN 12/19/23 12/19/23 History [Roxanol Oral Soln Conc 20MG/ML] Scopolamine [Scopolamine 1 MG/72 1 patch TRANSDERM Q72H PRN 12/19/23 12/19/23 History HR patch] bisacodyL [Dulcolax] 10 mg RECTAL DAILY PRN 12/19/23 12/19/23 History fentaNYL 25MCG/HR PATCH [Duragesic 1 patch TRANSDERM Q72H 12/19/23 12/19/23 H istory 25MCG/HR] predniSONE See Taper PEG/G-TUBE DIRECTED 12/19/23 12/19/23 History Allergies Allergy/AdvReac Type Severity Reaction Status Date / Time No Known Allergies Allergy Verified 12/19/23 18:27 Physical Exam Vitals: Vital Signs Temp Pulse Resp BP Pulse Ox FiO2 12/20/23 02:53 91 22 102/69 94 L 12/19/23 22:17 84 18 134/92 95 12/19/23 22:00 18 106/60 94 L 12/19/23 19:33 87 24 123/94 94 L 12/19/23 18:20 98.1 F 89 20 107/64 94 L 12/19/23 17:37 35 12/19/23 17:04 97.9 F 96 23 126/65 88 L 12/19/23 16:40 108 H 16 134/75 91 L 12/19/23 16:07 86 16 119/74 93 L 12/19/23 14:00 86 16 103/67 95 12/19/23 13:00 90 102/87 90 L 12/19/23 10:58 28 12/19/23 10:31 98.4 F 90 24 111/69 97 Intake and Output 12/19/23 12/19/23 12/20/23 14:59 22:59 06:59 Other: Weight 58.967 kg GENERAL EXAM: Alert, 58-year-old white male, currently on room air, comfortable in no apparent distress. HEAD: Normocephalic and atraumatic EYES: Normal reaction of pupils, equal size. NOSE: Clear with pink turbinates. THROAT: No erythema or exudates. NECK: No masses, no JVD. Tracheostomy insertion site clean and dry. CHEST: Right-sided chest tube hooked to suction at 20 cm H2O, no observable leak, a total of 450 mL of serosanguineous drainage in the collection chamber. LUNGS: Equal air entry with scattered crackles and rhonchi, especially worse within the right posterior lung poon. On room air. SpO2 is 95%. CVS: S1 and S2 normal with no audible murmur, regular rhythm. No extra heart sounds ABDOMEN: No hepatosplenomegaly, active bowel sounds, no guarding or rigidity. PEG tube site clean and dry. SPINE: No scoliosis or deformity SKIN: No rashes CENTRAL NERVOUS SYSTEM: No focal deficits, tone is normal in all 4 extremities. EXTREMITIES: There is no peripheral edema, clubbing, or cyanosis. Peripheral pulses are intact. Results - Laboratory Findings CBC and BMP: 12/19/23 11:27 12/19/23 11:27 Abnormal lab findings: Abnormal Labs 12/19/23 12/19/23 11:27 11:27 WBC 16.9 H RBC 3.56 L Hgb 11.0 L Hct 34.6 L Plt Count 475 H Neutrophils # 15.9 H Lymphocytes # 0.4 L Sodium 134 L Creatinine 0.41 L Glucose 64 L Calcium 8.0 L ALT 90 H Total Protein 5.5 L Albumin 2.6 L - Diagnostic Findings Chest x-ray: image reviewed CT scan - chest: image reviewed Assessment and Plan Assessment: Acute large right-sided hydropneumothorax, status post right-sided chest tube insertion and partial reexpansion of the lung. Acute hemoptysis, resolved Acute on chronic hypoxemic respiratory failure, secondary to above History of laryngeal cancer status/post chemoradiation and tracheostomy, PET scan done September, which revealed persistent uptake in the posterior lateral right cord level compatible with neoplasm. There was a right lower lobe pulmonary nodule measuring 1.2 cm with SUV value of 5.2, suspicious for either primary lung cancer versus metastasis of his laryngeal cancer. He had previously declined biopsy in the past, however, the patient had a recent hospital admission 12/09/2023 through 12/17/2023 for possible postobstructive pneumonia. His CT of the chest during that admission showed lobular heterogenous mass with internal cystic and necrotic components centered in the right middle lobe. Favored to represent interval progression of the patient's known malignant disease. He did have a bronchoscopy with transbronchial biopsy and BAL on 12/09/2023. Microbiology has remained negative. Biopsies taken were nondiagnostic for malignancy. History of PEG tube insertion, May 2023 Chronic obstructive pulmonary disease History of hypothyroidism Chronic ongoing tobacco dependence Plan: Patient's medications, labs, imaging reviewed Continue on tracheostomy collar with humidified oxygen Status/post insertion of a right sided chest tube. Continue chest tube to suction at 20 cm H2O. There is at least partial expansion of the right lung. Follow-up chest x-ray in the morning Patient was again placed on empiric antibiotics in the form of Zosyn. Check procalcitonin level. Medical oncology were also consulted Patient is hemodynamically stable at this time. Overall prognosis is poor. Patient has changed his mind about hospice care. After a discussion with the ER physician, he wants to be a full code. I have personally seen and examined the patient, performed the documentation and the assessment and plan as written. Number of minutes spent on the visit:20 . Time with Patient: Greater than 30
[2023-12-20] MEDS: ACETAMINOPHEN TAB 325 MG TAB PO PRN (09:53)
[2023-12-20] MEDS: MORPHINE SULFATE 4 MG/ML SYRINGE IVP PRN (10:09)
--- NOTE | 2023-12-20 13:39 | XR ---
EXAMINATION TYPE: XR chest 1V DATE OF EXAM: 12/20/2023 HISTORY: ptx, empyema COMPARISON: 12/19/2023 TECHNIQUE: Single view of the chest is submitted. FINDINGS: Right-sided chest tube with residual right apical pneumothorax measuring of pleural parenchymal dista nce of 1.1 cm versus 9 mm previously. Persistent complex collection at the right lung base compatible with provided history of empyema with out significant change. There is no evidence for focal infiltrate. The heart is stable. Hilar and mediastinal structures are within normal limits. Degenerative changes are seen of the dorsal spine. IMPRESSION: 1. Right-sided chest tube with residual right apical pneumothorax measuring of pleural parenchymal di stance of 1.1 cm versus 9 mm previously. 2. Persistent complex collection at the right lung base compatible with provided history of empyema without significant change.
[2023-12-20] MEDS ORDERED: bisacodyL 10 MG SUPP RECTAL PRN (13:52)
[2023-12-20] MEDS ORDERED: VANCOMYCIN IV PER PHARMACY 1 EACH MISC MISCELLANE PRN (17:12)
--- NOTE | 2023-12-20 17:12 | P.CNPUL ---
History of Present Illness Consult date: 12/20/23 Reason for consult: dyspnea History of present illness: Patient is a 58-year-old white male with past medical history significant for known laryngeal cancer status post tracheostomy, PEG tube insertion, chronic ongoing tobacco dependence, hypothyroidism, Graves' disease, diverticulosis. Patient's laryngeal cancer was previously treated with chemoradiation. No current treatment. Patient recently had a PET scan done September, which rev ealed persistent uptake in the posterior lateral right cord level compatible with neoplasm. There was a right lower lobe pulmonary nodule measuring 1.2 cm with SUV value of 5.2, suspicious for either primary lung cancer versus metastasis of his laryngeal cancer. He had previously declined biopsy in the past, however, the patient had a recent hospital admission 12/09/2023 through 12/17/2023 for possible postobstructive pneumonia. His CT of the chest during that admission showed lobular heterogenous mass with internal cystic and necrotic components centered in the right middle lobe. Favored to represent interval progression of the patient's known malignant disease. He did have a bronchoscopy with BAL on 12/09/2023. Microbiology has remained negative. Biopsies taking were nondiagnostic for malignancy. Patient ended up going home on hospice care. While at home, he had episodes of hemoptysis and was very short of breath. He ended up calling 911. He has changed his decision to proce ed with hospice. In fact, he wants to be full code. He is currently in the emergency room, room 1. He is sitting up in the stretcher, in no acute distress, he is currently on room air. He denies any fevers. Denies any chest pain. Denies trauma. Reports hemoptysis, unable to quantify how much. There is a trach collar lying in his lap set at 35%, however, he does not wish to wear this. Follow-up chest CT this admission shows interval development of a large right hydropneumothorax. There was also consolidative changes around the right pulmonary hilum thought to represent atelectasis with areas of cavitation in the area of the the previously described mass. There are retrained secretions predominantly within the right main bronchus, right lower lobe, and right middle lobe large airways. A right-sided chest tube was placed by the ER physician. This is currently hooked to continuous suction at 20 cm of H2O. No observable airleak. Approximately 450 mL of serosanguineous drainage in the collection chamber. A follow-up chest x-ray shows the right-sided chest tube in place, with a significant decrease in size of the right sided hydro and pneumothorax and partial reexpansion. CBC this admission, WBC count 16.9, hemoglobin 11, hematocrit 34.6, platelets 475. CMP this admission is unremarkable. Normal saline infusing at 75 mL/h. Patient was empirically started on Zosyn. Patient is hemodynamically stable. I saw this patient in the emergency department. The patient already had a right-sided chest tube in place. Output was noted. The fluid is rather cloudy. I suspect an underlying empyema/complicated pleural infection. I also reviewed the earlier CAT scan of the chest that was done back in November 2023. At that time, the patient had a masslike consolidation involving the right midlung area and this could have represented an area of lung abscess. Note that the bronchoscopy endobronchial lavage came back negative at that time.I repeated the chest x-ray from this afternoon and the right-sided chest tube is in place and there is a residual right-sided pneumothorax and there is persistent complex collection in the right lung compatible with his history of p ulmonary infection/empyema. The patient is currently on a broad-spectrum antibiotic utilizing Zosyn. As far as the blood work, the procalcitonin level is at 0.22. Rest of the blood work was noted. He is clinically and hemodynamically stable with a pulse ox of 91% on room air oxygen. Communicati ng. He has a tracheostomy tube in place. Review of Systems CONSTITUTIONAL: Denies any recent significant weight loss or weight gain. EYES: Denies change in vision. EARS, NOSE, MOUTH, THROAT: Denies headaches, denies sore throat. The patient has tracheostomy tube in place. CARDIOVASCULAR: Denies chest pain, palpitations or syncopal episodes. RESPIRATORY: See HPI GASTROINTESTINAL: Denies change in appetite, abdominal pain, nausea and vomiting, or diarrhea. The patient is on enteral feeding for nutritional support via PEG tube. GENITOURINARY: Denies hematuria, denies infections. MUSKULOSKELETAL: Denies pain, denies swelling. INTEGUMENTARY: Denies rash, denies eczema. NEUROLOGICAL: Denies recent memory loss, no recent seizure activity. PSYCHIATRIC: Denies anxiety, denies depression. HEMATOLOGIC/LYMPHATIC: Denies anemia, denies enlarged lymph node Past Medical History Past Medical History: Cancer, COPD, Syncope, Thyroid Disorder Additional Past Medical History / Comment(s): Graves disease, diverticulosis, esophageal cancer with radiation and chemolast 08/05 at [facility] History of Any Multi-Drug Resistant Organisms: None Reported Past Surgical History: Tonsillectomy Additional Past Surgical History / Comment(s): vasectomy, biopsy of throat, trach Past Anesthesia/Blood Transfusion Reactions: No Reported Reaction Past Psychological History: No Psychological Hx Reported Smoking Status: Current every day smoker Past Alcohol Use History: None Reported Past Drug Use History: None Reported - Past Family History Father History Unknown: Yes Medications and Allergies Home Medications Medication Instructions Recorded Confirmed Type Omeprazole [PriLOSEC] 20 mg PEG/G-TUBE BID PRN 05/20/23 12/19/23 History Ibuprofen [Motrin] 800 mg PEG/G-TUBE Q8H PRN 12/09/23 12/19/23 History Acetaminophen Suppository [Tylenol 650 mg RECTAL Q4H PRN 12/19/23 12/19/23 History Suppository] Albuterol Sulfate/Budesonide 1 puff INHALATION RT-BID 12/19/23 12/19/23 History [Airsupra 90-80 Mcg Inhaler] Amoxic-Pot Clav 875-125Mg 1 tab PEG/G-TUBE Q12HR 12/19/23 12/19/23 History [Augmentin 875-125] HYDROcodone/APAP 5-325MG [[place] 2 tab PEG/G-TUBE Q4H PRN 12/19/23 12/19/23 History 5-325] Haloperidol Oral Soln [Haldol Oral 1 mg PEG/G-TUBE Q4H PRN 12/19/23 12/19/23 History Soln] LORazepam [Ativan] 1 mg PEG/G-TUBE Q4H PRN 12/19/23 12/19/23 History MORPHINE ORAL DAISY CONC 20mg/mL 5 mg PEG/G-TUBE Q4HR PRN 12/19/23 12/19/23 History [Roxanol Oral Soln Conc 20MG/ML] Scopolamine [Scopolamine 1 MG/72 1 patch TRANSDERM Q72H PRN 12/19/23 12/19/23 History HR patch] bisacodyL [Dulcolax] 10 mg RECTAL DAILY PRN 12/19/23 12/19/23 History fentaNYL 25MCG/HR PATCH [Duragesic 1 patch TRANSDERM Q72H 12/19/23 12/19/23 History 25MCG/HR] predniSONE See Taper PEG/G-TUBE DIRECTED 12/19/23 12/19/23 History Allergies Allergy/AdvReac Type Severity Reaction Status Date / Time No Known Allergies Allergy Verified 12/19/23 18:27 Physical Exam Vitals: Vital Signs Temp Pulse Resp BP Pulse Ox FiO2 12/20/23 16:00 77 16 102/69 91 L 12/20/23 15:00 88 20 97/62 92 L 12/20/23 13:55 87 20 95/61 92 L 12/20/23 13:00 77 20 96/54 93 L 12/20/23 12:00 98.3 F 84 18 97/60 91 L 12/20/23 10:00 88 16 98/60 93 L 12/20/23 09:00 91 20 97/66 92 L 12/20/23 08:33 19 12/20/23 08:00 88 16 96/52 91 L 12/20/23 07:00 84 18 97/60 92 L 12/20/23 05:52 75 20 97/60 94 L 12/20/23 02:53 91 22 102/69 94 L 12/19/23 22:17 84 18 134/92 95 12/19/23 22:00 18 106/60 94 L 12/19/23 19:33 87 24 123/94 94 L 12/19/23 18:20 98.1 F 89 20 107/64 94 L 12/19/23 17:37 35 12/19/23 17:04 97.9 F 96 23 126/65 88 L GENERAL EXAM: Alert, 58-year-old white male, currently on room air, comfortable in no apparent distress. The patient is tracheostomy tube in place. HEAD: Normocephalic and atraumatic EYES: Normal reaction of pupils, equal size. NOSE: Clear with pink turbinates. THROAT: No erythema or exudates. NECK: No masses, no JVD. Tracheostomy insertion site clean and dry. CHEST: Right-sided chest tube hooked to suction at 20 cm H2O, no observable leak, a total of 450 mL of serosanguineous drainage in the collection chamber. LUNGS: Equal air entry with scattered crackles and rhonchi, especially worse within the right posterior lung poon. On room air. SpO2 is 95%. The patient has right-sided chest tube in place. CVS: S1 and S2 normal with no audible murmur, regular rhythm. No extra heart sounds ABDOMEN: No hepatosplenomegaly, active bowel sounds, no guarding or rigidity. PEG tube site clean and dry. SPINE: No scoliosis or deformity SKIN: No rashes CENTRAL NERVOUS SYSTEM: No focal deficits, tone is normal in all 4 extremities. EXTREMITIES: There is no peripheral edema, clubbing, or cyanosis. Peripheral pulses are intact. Results - Laboratory Findings CBC and BMP: 12/19/23 11:27 12/19/23 11:27 Abnormal lab findings: Abnormal Labs 12/19/23 12/19/23 12/20/23 11:27 11:27 05:11 WBC 16.9 H RBC 3.56 L Hgb 11.0 L Hct 34.6 L Plt Count 475 H Neutrophils # 15.9 H Lymphocytes # 0.4 L Sodium 134 L Creatinine 0.41 L Glucose 64 L Calcium 8.0 L ALT 90 H Total Protein 5.5 L Albumin 2.6 L Procalcitonin 0.22 H - Diagnostic Findings Chest x-ray: image reviewed CT scan - chest: image reviewed Assessment and Plan Plan: Acute large right-sided hydropneumothorax, status post chest tube insertion. Based on my review of the various CAT scans it is possible that the patient developed an area of empyema/lung abscess and the patient had a masslike cons olidation of the right midlung back in November 2023. Cultures at that time obtained via bronchoscopy and bronchial lavage was negative. Subsequently, the patient presents with a large hydropneumothorax and chest tube was inserted and this is most likely consistent with a pleural space infection As the patient has a heterogeneous complex right pleural effusion with pneumothorax and areas of consolidation around the right pulmonary hilum with areas of cavitation. White cell count is mildly elevated at 16.9. Hemodynamically stable. Right-sided chest was been inserted. Pleural fluid drainage has been noted. Acute hemoptysis, resolved, currently inactive and stable Acute on chronic hypoxemic respiratory failure, secondary to above, currently on room air oxygen History of laryngeal cancer status/post chemoradiation and tracheostomy, PET scan done September, which revealed persistent uptake in the posterior lateral right cord level compatible with neoplasm. There was a right lower lobe pulmonary nodule measuring 1.2 cm with SUV value of 5.2, suspicious for either primary lung cancer versus metastasis of his laryngeal cancer. He had previously declined biopsy in the past, however, the patient had a recent hospital admission 12/09/2023 through 12/17/2023 for possible postobstructive pneumonia. His CT of the chest during that admission showed lobular heterogenous mass with internal cystic and necrotic components centered in the right middle lobe. Favored to represent interval progression of the patient's known malignant disease. He did have a bronchoscopy and BAL on 12/09/2023. Microbiology has remained negative. History of PEG tube insertion, May 2023 Chronic obstructive pulmonary disease History of hypothyroidism Chronic ongoing tobacco dependence Plan: Will check the pleural fluid for cell count and chemistry Check pleural fluid cultures Check pleural fluid cytology Keep right-sided chest tube in place Cover the patient with broad-spectrum antibiotics Continue on tracheostomy collar with humidified oxygen Follow-up chest x-ray in the morning Patient was again placed on empiric antibiotics in the form of Zosyn. Medical oncology were also consulted Patient is hemodynamically stable at this time. Overall prognosis is poor. Patient has changed his mind about hospice care. After a discussion with the ER physician, he wants to be a full code. May need a surgical evaluation by thoracic surgery should the patient decide to come out of hospice and proceed with routine medical care.
--- NOTE | 2023-12-20 17:12 | P.CONS ---
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 The symptoms had been present for about 3-4 years, but had become much more prominent and progressive since 10/05. CT neck on 03/09/23 showed a 2.3 cm supraglottic mass on the right, with a right neck node measuring 3.1 cm at level III. PET scan 03/25/23 showed uptake in the primary lesion, as well as uptake in a level IIA and a level III node on the right. ENT recommended a biopsy but, pt didn't think he needed it to start to start treatment. He was seen by Radiation Oncology initially on 04/13/23 and was referred back to ENT. 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 Malignancy was present on biopsy from the right s upraglottis and the right hypopharynx. Tumor was p16 negative. Was referred to Medical Oncology concurrent chemoradiation was recommended. He started weekly chemo/rads late April. He was admitted after cycle 1 to hospital for difficulty in breathing. He had trach and PEG placement. He resumed treatment Mid May, completing chemo 07/05/23, XRT early Jul. He has been on f/u since. He had a PET scan that was ordered by radiation oncology. There was some uptake in the right vocal cord and also in an opacity in the right lung. Was not clear if this represented inflammation. Plan was for short term f/u scans. He did see ENT and had biopsy of rt vocal cord 11/11/23 which was unfortunately positive for malignancy. Laryngectomy was recommended but pt did not want. He was offered SBRT for lung lesions but, felt that since it didn't work on his throat, he did not want. He was inpt 12/08-12/16 for c/o SOB, fever 101F, right-sided chest pain, throat pain and, increased sputum production. Had bronch with removal of mucus plug and received antibiotics. CT chest showed lobular heterogeneous mass with internal cystic and necrotic component centered in the right middle lobe, in the region of prior FDG avid lung nodule. Favored to represent interval progression of known malignant disease, superimposed infection not be excluded. There was a small right pleural effusion and emphysematous changes of the lungs. Pt was scheduled for repeat bronch with biopsy, however he stated no longer wants to proceed with procedure, he requested hospice care and was discharged on the same. He is currently admitted with SOB and hemoptysis.CT of the chest showed interval development of a large right hydropneumothorax with a large pneumothorax and a small heterogenous complex right pleural effusion. Consolidation changes around the right pulmonary hilum thought to represent atelectasis with areas of cavitation possibly secondary to the mass. Retained secretions predominantly in the right main bronchus, right lower and right middle lobe large airways. Patient had a right chest tube placed. He reports improvements in his breathing, expresses some discomfort at the area of the chest tube insertion site. He denies any further hemoptysis at this time. He is on antibiotics. He denies any fevers, nausea or vomiting, abdominal pain, acute changes in bowel or bladder habits. Review of Systems 10 point ROS is neg except as stated in HPI Past Medical History Past Medical History: Cancer, COPD, Syncope, Thyroid Disorder Additional Past Medical History / Comment(s): Graves disease, diverticulosis, esophageal cancer with radiation and chemolast 08/05 at [facility] History of Any Multi-Drug Resistant Organisms: None Reported Past Surgical History: Tonsillectomy Additional Past Surgical History / Comment(s): vasectomy, biopsy of throat, trach Past Anesthesia/Blood Transfusion Reactions: No Reported Reaction Past Psychological History: No Psychological Hx Reported Smoking Status: Current every day smoker Past Alcohol Use History: None Reported Past Drug Use History: None Reported - Past Family History Father History Unknown: Yes Medications and Allergies Home Medications Medication Instructions Recorded Confirmed Type Omeprazole [PriLOSEC] 20 mg PEG/G-TUBE BID PRN 05/20/23 12/19/23 History Ibuprofen [Motrin] 800 mg PEG/G-TUBE Q8H PRN 12/09/23 12/19/23 History Acetaminophen Suppository [Tylenol 650 mg RECTAL Q4H PRN 12/19/23 12/19/23 Hi story Suppository] Albuterol Sulfate/Budesonide 1 puff INHALATION RT-BID 12/19/23 12/19/23 History [Airsupra 90-80 Mcg Inhaler] Amoxic-Pot Clav 875-125Mg 1 tab PEG/G-TUBE Q12HR 12/19/23 12/19/23 History [Augmentin 875-125] HYDROcodone/APAP 5-325MG [[place] 2 tab PEG/G-TUBE Q4H PRN 12/19/23 12/19/23 History 5-325] Haloperidol Oral Soln [Haldol Oral 1 mg PEG/G-TUBE Q4H PRN 12/19/23 12/19/23 History Soln] LORazepam [Ativan] 1 mg PEG/G-TUBE Q4H PRN 12/19/23 12/19/23 History MORPHINE ORAL DAISY CONC 20mg/mL 5 mg PEG/G-TUBE Q4HR PRN 12/19/23 12/19/23 History [Roxanol Oral Soln Conc 20MG/ML] Scopolamine [Scopolamine 1 MG/72 1 patch TRANSDERM Q72H PRN 12/19/23 12/19/23 History HR patch] bisacodyL [Dulcolax] 10 mg RECTAL DAILY PRN 12/19/23 12/19/23 History fentaNYL 25MCG/HR PATCH [Duragesic 1 patch TRANSDERM Q72H 12/19/23 12/19/23 History 25MCG/HR] predniSONE See Taper PEG/G-TUBE DIRECTED 12/19/23 12/19/23 History Allergies Allergy/AdvReac Type Severity Reaction Status Date / Time No Known Allergies Allergy Verified 12/19/23 18:27 Physical Exam Vitals: Vital Signs Temp Pulse Resp BP Pulse Ox FiO2 12/20/23 05:52 75 20 97/60 94 L 12/20/23 02:53 91 22 102/69 94 L 12/19/23 22:17 84 18 134/92 95 12/19/23 22:00 18 106/60 94 L 12/19/23 19:33 87 24 123/94 94 L 12/19/23 18:20 98.1 F 89 20 107/64 94 L 12/19/23 17:37 35 12/19/23 17:04 97.9 F 96 23 126/65 88 L 12/19/23 16:40 108 H 16 134/75 91 L 12/19/23 16:07 86 16 119/74 93 L 12/19/23 14:00 86 16 103/67 95 12/19/23 13:00 90 102/87 90 L 12/19/23 10:58 28 12/19/23 10:31 98.4 F 90 24 111/69 97 - Constitutional General appearance: cooperative, no acute distress, thin - EENT trach is situ Eyes: anicteric sclerae ENT: hearing grossly normal - Respiratory Respiratory: right: diminished (lower 1/3 ), bilateral: rhonchi (expiratory, throughout) - Cardiovascular Rhythm: regular Heart sounds: normal: S1, S2 Abnormal Heart Sounds: no systolic murmur, no diastolic murmur, no rub, no S3 Gallop, no S4 Gallop, no click, no other - Gastrointestinal PEG insitu, no unusual drainage, redness, pain, BS +, soft, non-tender General gastrointestinal: normal bowel sounds, soft - Integumentary Integumentary: normal - Neurologic Neurologic: CNII-XII intact (grossly) - Musculoskeletal Musculoskeletal: strength equal bilaterally - Psychiatric Psychiatric: A&O x's 3, appropriate affect, intact judgment & insight Results CBC & Chem 7: 12/19/23 11:27 12/19/23 11:27 Labs: Abnormal Lab Results - Last 24 Hours (Table) 12/19/23 12/19/23 Range/Units 11:27 11:27 WBC 16.9 H (3.8-10.6) k/uL RBC 3.56 L (4.30-5.90) m/uL Hgb 11.0 L (13.0-17.5) gm/dL Hct 34.6 L (39.0-53.0) % Plt Count 475 H (150-450) k/uL Neutrophils # 15.9 H (1.3-7.7) k/uL Lymphocytes # 0.4 L (1.0-4.8) k/uL Sodium 134 L (137-145) mmol/L Creatinine 0.41 L (0.66-1.25) mg/dL Glucose 64 L (74-99) mg/dL Calcium 8.0 L (8.4-10.2) mg/dL ALT 90 H (4-49) U/L Total Protein 5.5 L (6.3-8.2) g/dL Albumin 2.6 L (3.5-5.0) g/dL Chest x-ray: report reviewed CT scan - chest: report reviewed Assessment and Plan (1) Pneumonia Current Visit: Yes Status: Acute Priority: High Code(s): J18.9 - PNEUMONIA, UNSPECIFIED ORGANISM SNOMED Code(s): 788564616 (2) Pneumothorax Current Visit: Yes Status: Acute Priority: High Code(s): J93.9 - PNEUMOTHORAX, UNSPECIFIED SNOMED Code(s): 26854567 (3) Dyspnea Current Visit: Yes Status: Acute Priority: High Code(s): R06.00 - DYSPNEA, UNSPECIFIED SNOMED Code(s): 293424375 (4) Squamous cell carcinoma of head and neck Current Visit: No Status: Chronic Priority: High Code(s): C44.42 - SQUAMOUS CELL CARCINOMA OF SKIN OF SCALP AND NECK SNOMED Code(s): 690159243 Plan: Pneumothorax -Pulmonary is seen and examined patient. -Status post right-sided chest tube placement. Patient reporting improvements in shortness of breath -Repeat chest x-ray showing residual right apical pneumothorax looking slightly larger, at 1.1 cm versus 9 mm previously? Dyspnea, pneumonia -Patient has been started on antibiotics -Improvement in respiratory status after chest tube placement Sq cell head neck. Recent PET revealing avid findings in the lung as well as the neck -Patient has previously refused biopsy. He left just about 4 days ago under hospice care -Patient's symptoms were distressing so, he returned to the hospital. -When asked how patient would like to proceed he stated that he would like to speak to Pulmonary. Agree with any questions or concerns being answered for the patient. -Patient can still decide if he would like to proceed with a biopsy and pursue any palliative treatment -Will are available if patient has any questions or concerns from a medical oncology standpoint -Agree with any type of care that helps palliate patient's symptoms and makes him more comfortable. -He still has f/u with Dr. Moreira on the 01/09 if he wants to follow up -Patient denied any further questions at this time Pain medications were adjusted based on patient's complaints. Medications for prevention of narcotic induced constipation added as needed. Doctor attests: I performed a history and physical examination of this patient, developed impression and plan of care. Discussed with dictator. I agree with dictators note, documented as a scribe.
[2023-12-20] MEDS: HEPARIN SODIUM,PORCINE 5,000 UNIT/ML 1 ML VIAL SQ SCH (17:40)
[2023-12-20] MEDS: VANCOMYCIN 1,000 MG in SODIUM CHLORIDE 0.9% 250 ML IVPB SCH (18:17)
--- NOTE | 2023-12-20 23:25 | P.HPIM ---
History of Present Illness H&P Date: 12/20/23 Chief Complaint: Shortness of breath Patient is a 58-year-old male with a past medical history of laryngeal cancer status post chemoradiation in July 2023 last tracheostomy and PEG tube placement, COPD, hypothyroidism, history of Graves' disease and currently everyday smoker presents to ER with worsening shortness of breath and hemoptysis. Patient was recently admitted to the hospital from 12/10/2023 to 12/17/2023 and was treated for postoperative pneumonia and COPD. Patient was discharged under hospice care. Patient states that he has been having copious amounts of secretions from the tracheostomy. Denies any fever. No nausea or vomiting. Patient had recent PET scan in September 2023 which showed persistent uptake in the posterior lateral right vocal cord compatible with neoplasm. Patient previously declined biopsy. Chest x-ray on admission showed increasing lucency throughout the right lung concerning for pneumothorax. Small pleural effusion may also be present. CT chest showed interval development of large right pneumothorax with large pneumothorax and small heterogenous complex right pleural effusion. There is consolidation changes around the right pulmonary hilum thought to represent atelectasis in the area of cavitation possibly secondary to prior mass. Retained secretions predominantly within the right main bronchus, right lower and right middle lobe large airways. Correlate for retained secretions. Consider bronchoscopy. Chest tube was placed by ER physician. Repeat chest x-ray showed right-sided chest tube in place with significant decrease in size of right-sided hydro pneumothorax and partial reexpansion. Laboratory data showed WBC 16.9 hemoglobin 11.0 and platelets 475 Sodium 134 potassium 5.1 chloride 105 bicarb is 22 BUN 19 and creatinine 0.41 and blood sugar 64 albumin 2.6 and procalcitonin level is elevated to 0.22 Review of Systems Complete review of systems could not be obtained from the patient except as per HPI Past Medical History Past Medical History: Cancer, COPD, Syncope, Thyroid Disorder Additional Past Medical History / Comment(s): Graves disease, diverticulosis, esophageal cancer with radiation and chemolast 08/05 at [facility] History of Any Multi-Drug Resistant Organisms: None Reported Past Surgical History: Tonsillectomy Additional Past Surgical History / Comment(s): vasectomy, biopsy of throat, trach Past Anesthesia/Blood Transfusion Reactions: No Reported Reaction Past Psychological History: No Psychological Hx Reported Smoking Status: Current every day smoker Past Alcohol Use History: None Reported Past Drug Use History: None Reported - Past Family History Father History Unknown: Yes Medications and Allergies Home Medications Medication Instructions Recorded Confirmed Type Omeprazole [PriLOSEC] 20 mg PEG/G-TUBE BID PRN 05/20/23 12/19/23 History Ibuprofen [Motrin] 800 mg PEG/G-TUBE Q8H PRN 12/09/23 12/19/23 History Acetaminophen Suppository [Tylenol 650 mg RECTAL Q4H PRN 12/19/23 12/19/23 History Suppository] Albuterol Sulfate/Budesonide 1 puff INHALATION RT-BID 12/19/23 12/19/23 History [Airsupra 90-80 Mcg Inhaler] Amoxic-Pot Clav 875-125Mg 1 tab PEG/G-TUBE Q12HR 12/19/23 12/19/23 History [Augmentin 875-125] HYDROcodone/APAP 5-325MG [[place] 2 tab PEG/G-TUBE Q4H PRN 12/19/23 12/19/23 History 5-325] Haloperidol Oral Soln [Haldol Oral 1 mg PEG/G-TUBE Q4H PRN 12/19/23 12/19/23 History Soln] LORazepam [Ativan] 1 mg PEG/G-TUBE Q4H PRN 12/19/23 12/19/23 History MORPHINE ORAL DAISY CONC 20mg/mL 5 mg PEG/G-TUBE Q4HR PRN 12/19/23 12/19/23 His tory [Roxanol Oral Soln Conc 20MG/ML] Scopolamine [Scopolamine 1 MG/72 1 patch TRANSDERM Q72H PRN 12/19/23 12/19/23 History HR patch] bisacodyL [Dulcolax] 10 mg RECTAL DAILY PRN 12/19/23 12/19/23 History fentaNYL 25MCG/HR PATCH [Duragesic 1 patch TRANSDERM Q72H 12/19/23 12/19/23 Hist ory 25MCG/HR] predniSONE See Taper PEG/G-TUBE DIRECTED 12/19/23 12/19/23 History Allergies Allergy/AdvReac Type Severity Reaction Status Date / Time No Known Allergies Allergy Verified 12/19/23 18:27 Physical Exam Vitals: Vital Signs Temp Pulse Resp BP Pulse Ox FiO2 12/20/23 13:00 77 20 96/54 93 L 12/20/23 12:00 98.3 F 84 18 97/60 91 L 12/20/23 10:00 88 16 98/60 93 L 12/20/23 09:00 91 20 97/66 92 L 12/20/23 08:33 19 12/20/23 08:00 88 16 96/52 91 L 12/20/23 07:00 84 18 97/60 92 L 12/20/23 05:52 75 20 97/60 94 L 12/20/23 02:53 91 22 102/69 94 L 12/19/23 22:17 84 18 134/92 95 12/19/23 22:00 18 106/60 94 L 12/19/23 19:33 87 24 123/94 94 L 12/19/23 18:20 98.1 F 89 20 107/64 94 L 12/19/23 17:37 35 12/19/23 17:04 97.9 F 96 23 126/65 88 L 12/19/23 16:40 108 H 16 134/75 91 L 12/19/23 16:07 86 16 119/74 93 L 12/19/23 14:00 86 16 103/67 95 PHYSICAL EXAMINATION: Patient is lying in the bed, no acute distress, awake alert and oriented. Unable to communicate due to tracheostomy.. HEENT: Normocephalic. Neck is supple. Pupils reactive. Nostrils clear. Oral cavity is moist. Neck reveals no JVD, carotid bruits, or thyromegaly. CHEST EXAMINATION: Trachea is central. Symmetrical expansion. Bibasilar coarse sounds and crackles. Nonlabored breathing.. CARDIAC: Normal S1, S2 with no gallops. No murmurs ABDOMEN: Soft. Bowel sounds normal. No organomegaly. No abdominal bruits. Extremities: reveal no edema. No clubbing or cyanosis Neurologically awake, alert, oriented x3. Able to move all extremities. No gross focal neurological deficits.. Skin: No rash or skin lesions. Psychiatric: Coperative. Nonsuicidal Musculoskeletal: No joint swelling or deformity. Results CBC & Chem 7: 12/19/23 11:27 12/19/23 11:27 Labs: Abnormal Lab Results - Last 24 Hours (Table) 04/07/24 04/08/24 Range/Units 11:27 05:11 WBC 16.9 H (3.8-10.6) k/uL RBC 3.56 L (4.30-5.90) m/uL Hgb 11.0 L (13.0-17.5) gm/dL Hct 34.6 L (39.0-53.0) % Plt Count 475 H (150-450) k/uL Neutrophils # 15.9 H (1.3-7.7) k/uL Lymphocytes # 0.4 L (1.0-4.8) k/uL Procalcitonin 0.22 H (0.02-0.09) ng/mL Thrombosis Risk Factor Assmnt - DVT/VTE Prophylaxis DVT/VTE Prophylaxis: Pharmacologic Prophylaxis ordered Assessment and Plan Assessment: Acute large right-sided hydropneumothorax status post chest tube placement with decrease in size of the right-sided hydropneumothorax and partial reexpansion. Acute on chronic hypoxemic respiratory failure secondary to above Acute hemoptysis on admission History of laryngeal cancer status post chemoradiation in July 2023 and tracheostomy and PEG tube placement. Patient had PET scan done in September 2023 showed persistent uptake in the posterior lateral right cord level compatible wi th neoplasm. Patient declined biopsy in the past. Recent admission for from 11/19/2023 to 12/17/2023 postobstructive pneumonia and also CT evidence of lobular heterogenous mass and necrotic components in the right middle lobe. Status post bronchoscopy and biopsy. BAL cultures negative and biopsies nondiagnostic for malignancy. Hypothyroidism History of Graves' disease COPD Ongoing nicotine addiction DVT prophylaxis with heparin subcu Plan: Patient is on humidified oxygen via trach collar. Status post right-sided chest tube placement with suction due to hydropneumothorax. Patient is being continued on IV antibiotics in the form of Zosyn. Procalcitonin level is 0.22 Continue with breathing treatments and follow-up culture reports. Oncology and pulmonary is on board. Patient was previously transferred to hospice care but currently would like to be full code. Continue to follow closely. Prognosis poor at this time. Time with Patient: Greater than 30
[2023-12-21] MEDS: HYDROmorphone 1 MG/ML 1 ML SYRINGE IVP ONE (05:11)
--- NOTE | 2023-12-21 08:31 | XR ---
EXAMINATION TYPE: XR chest 1V portable DATE OF EXAM: 12/21/2023 HISTORY: Empyema follow-up COMPARISON: 12/20/2023 TECHNIQUE: Single view of the chest is submitted. FINDINGS: Demonstrated are scattered senescent parenchymal change. Tracheostomy tube is unchanged in position. Right apical pneumothorax measures 5.6 mm apical pleural distance versus 1.1 cm previously. Pleural parenchymal opacity right lung base is unchanged. Right-sided chest tube redemonstrated right upper lobe. The heart is stable. Hilar and mediastinal structures are within normal limits. Degenerative changes are seen of the dorsal spine. IMPRESSION: 1. No significant change in pleural parenchymal opacity right lung base. Slightly improved right api benny pneumothorax.
[2023-12-21] MEDS: HYDROmorphone 0.5 MG/0.5 ML SYRINGE IVP PRN (08:51)
[2023-12-21 11:20] LABS: Basophils % (A) 0 %; Eosinophils # (A) 0.1 k/uL (0-0.7); Eosinophils % (A) 1 %; HCT 34.9 % (39.0-53.0); HGB 10.5 gm/dL (13.0-17.5); Hypochromasia Marked; Lymphocytes # (A) 0.5 k/uL (1.0-4.8); Lymphocytes % (A) 3 %; MCH 30.4 pg (25.0-35.0); MCV 101.3 fL (80.0-100.0); Macrocytosis Slight; Mean Platelet Volume 8.8; Monocytes # (A) 0.6 k/uL (0-1.0); Monocytes % (A) 4 %; Neutrophils # (A) 13.9 k/uL (1.3-7.7); Neutrophils % (A) 92 %; Platelet Count 566 k/uL (150-450); RBC 3.45 m/uL (4.30-5.90); WBC 15.2 k/uL (3.8-10.6)
[2023-12-21 11:28] LABS: African American GFR (CKD) >90 (>60 ml/min/1.73 sqM); Anion Gap 9 mmol/L; Blood Urea Nitrogen 16 mg/dL (9-20); Carbon Dioxide 24 mmol/L (22-30); Chloride 106 mmol/L (98-107); Glucose 54 mg/dL (74-99); LDH 220 U/L (120-246); Non-African American GFR(CKD) >90 (>60 ml/min/1.73 sqM); Potassium 4.2 mmol/L (3.5-5.1); Sodium 139 mmol/L (137-145); Total Protein 4.8 g/dL (6.3-8.2)
--- NOTE | 2023-12-21 13:46 | P.PN ---
Subjective Progress Note Date: 12/21/23 Patient is a 58-year-old white male with past medical history significant for known laryngeal cancer status post tracheostomy, PEG tube insertion, chronic ongoing tobacco dependence, hypothyroidism, Graves' disease, diverticulosis. Patient's laryngeal cancer was previously treated with chemoradiation. No current treatment. Patient recently had a PET scan done September, which revealed persistent uptake in the posterior lateral right cord level compatible with neoplasm. There was a right lower lobe pulmonary nodule measuring 1.2 cm with SUV value of 5.2, suspicious for either primary lung cancer versus metastasis of his laryngeal cancer. He had previously declined biopsy in the past, however, the patient had a recent hospital admission 12/09/2023 through 12/17/2023 for possible postobstructive pneumonia. His CT of the chest during that admission showed lobular heterogenous mass with internal cystic and necrotic components centered in the right middle lobe. Favored to represent interval progression of the patient's known malignant disease. He did have a bronchoscopy with BAL on 12/09/2023. Microbiology has remained negative. Biopsies taking were nondiagnostic for malignancy. Patient ended up going home on hospice care. While at home, he had episodes of hemoptysis and was very short of breath. He ended up calling 911. He has changed his decision to proceed with hospice. In fact, he wants to be full code. He is currently in the emergency room, room 1. He is sitting up in the stretcher, in no acute distress, he is currently on room air. He denies any fevers. Denies any chest pain. Denies trauma. Reports hemoptysis, unable to quantify how much. There is a trach collar lying in his lap set at 35%, however, he does not wish to wear this. Follow-up chest CT this admission shows interval development of a large right hydropneumothorax. There was also consolidative changes around the right pulmonary hilum thought to represent atelectasis with areas of cavitation in the area of the the previously described mass. There are retrained secretions predominantly within the right main bronchus, right lower lobe, and right middle lobe large airways. A right-sided chest tube was placed by the ER physician. This is currently hooked to continuous suction at 20 cm of H2O. No observable airleak. Approximately 450 mL of serosanguineous drainage in the collection chamber. A follow-up chest x-ray shows the right-sided chest tube in place, with a significant decrease in size of the right sided hydro and pneumothorax and partial reexpansion. CBC this admission, WBC count 16.9, hemoglobin 11, hematocrit 34.6, platelets 475. CMP this admission is unremarkable. Normal saline infusing at 75 mL/h. Patient was empirically started on Zosyn. Patient is hemodynamically stable. I saw this patient in the emergency department. The patient already had a right-sided chest tube in place. Output was noted. The fluid is rather cloudy. I suspect an underlying empyema/complicated pleural infection. I also reviewed the earlier CAT scan of the chest that was done back in November 2023. At that time, the patient had a masslike consolidation involving the right midlung area and this could have represented an area of lung abscess. Note that the bronchoscopy endobronchial lavage came back negative at that time.I repeated the chest x-ray from this afternoon and the right-sided chest tube is in place and there is a residual right-sided pneumothorax and there is persistent complex collection in the right lung compatible with his history of pulmonary infection/empyema. The patient is currently on a broad-spectrum antibiotic utilizing Zosyn. As far as the blood work, the procalcitonin level is at 0.22. Rest of the blood work was noted. He is clinically and hemodynamically stable with a pulse ox of 91% on room air oxygen. Communicating. He has a tracheostomy tube in place. On today's evaluation of 12/21/2023, the patient is being seen for a follow-up. Awaiting the pleural fluid analysis. Noted output from the chest tube is minimal and the patient has put out minimal amount of output since yesterday. Total amount of output has not been in the order of 500 cc since the patient arrived to the medical floor. Procalcitonin level is at 0.22. The white cell count is currently at 15.2 with a hemoglobin 10.5 and a platelet count of 5-66. The patient remains on Zosyn and vancomycin. Repeat chest x-ray was done today and it showed no significant interval change compared to yesterday. The chest tube is in good location. There is a very tiny right apical pneumothorax measuring approximately 6 mm in size. There is also pleural-parenchymal opacity in the right lung base that remains unchanged and obviously this needs to be further investigated by CAT scan of the chest and this will be ordered in the form of a noncontrast enhanced CAT scan to be done today. The patient is on room air oxygen. The patient has tracheostomy tube in place. The blood cultures are negative. Sputum samples also sent and the results are still pending for now. Pleural fluid analysis also pending. Objective - Vital Signs Vital signs: Vital Signs Temp 97.9 F 12/21/23 08:00 Pulse 90 12/21/23 08:00 Resp 16 12/21/23 09:28 BP 93/59 12/21/23 08:00 Pulse Ox 90 L 12/21/23 04:45 FiO2 35 12/20/23 20:22 Intake & Output 12/20/23 12/21/23 12/21/23 18:59 06:59 18:59 Intake Total 20 Output Total 550 0 Balance -530 0 Weight 58.967 kg Intake: IV 20 Invasive Line 2 20 Output: Chest Tube Drainage 0 0 Chest Tube Right Mid- 0 0 Axillary Chest Urine 550 Other: Voiding Method Urinal Urinal - Exam GENERAL EXAM: Alert, 58-year-old white male, currently on room air, comfortable in no apparent distress. The patient is tracheostomy tube in place. HEAD: Normocephalic and atraumatic EYES: Normal reaction of pupils, equal size. NOSE: Clear with pink turbinates. THROAT: No erythema or exudates. NECK: No masses, no JVD. Tracheostomy insertion site clean and dry. CHEST: Right-sided chest tube hooked to suction at 20 cm H2O, no observable leak, a total of 450 mL of serosanguineous drainage in the collection chamber. LUNGS: Equal air entry with scattered crackles and rhonchi, especially worse within the right posterior lung poon. On room air. SpO2 is 95%. The patient has right-sided chest tube in place. CVS: S1 and S2 normal with no audible murmur, regular rhythm. No extra heart sounds ABDOMEN: No hepatosplenomegaly, active bowel sounds, no guarding or rigidity. PEG tube site clean and dry. SPINE: No scoliosis or deformity SKIN: No rashes CENTRAL NERVOUS SYSTEM: No focal deficits, tone is normal in all 4 extremities. EXTREMITIES: There is no peripheral edema, clubbing, or cyanosis. Peripheral pulses are intact. - Labs CBC & Chem 7: 12/21/23 09:38 12/21/23 09:38 Labs: Microbiology - Last 24 Hours (Table) 12/20/23 18:30 Gram Stain - Preliminary Sputum 12/19/23 16:52 Blood Culture - Preliminary Blood Assessment and Plan Plan: Acute large right-sided hydropneumothorax, status post chest tube insertion. Ba sed on my review of the various CAT scans it is possible that the patient developed an area of empyema/lung abscess and the patient had a masslike consolidation of the right midlung back in November 2023. Cultures at that time obtained via bronchoscopy and bronchial lavage was negative. Subsequently, the patient presents with a large hydropneumothorax and chest tube was inserted and this is most likely consistent with a pleural space infection As the patient has a heterogeneous complex right pleural effusion with pneumothorax and areas of consolidation around the right pulmonary hilum with areas of cavitation. White cell count is mildly elevated at 16.9. Hemodynamically stable. Right-sided chest was been inserted. Pleural fluid drainage has been noted. The output from the chest tube is minimal at this point in time. The chest x-ray findings are unchanged the patient continues to have a pleural-parenchymal opacity in the right lung base. A follow-up CAT scan of the chest to be ordered today. Acute hemoptysis, resolved, currently inactive and stable Acute on chronic hypoxemic respiratory failure, secondary to above, currently on room air oxygen History of laryngeal cancer status/post chemoradiation and tracheostomy, PET scan done September, which revealed persistent uptake in the posterior lateral right cord level compatible with neoplasm. There was a right lower lobe pulmonary nodule measuring 1.2 cm with SUV value of 5.2, suspicious for either primary lung cancer versus metastasis of his laryngeal cancer. He had previously declined biopsy in the past, however, the patient had a recent hospital admission 12/09/2023 through 12/17/2023 for possible postobstructive pneumonia. His CT of the chest during that admission showed lobular heterogenous mass with internal cystic and necrotic components centered in the right middle lobe. Favored to represent interval progression of the patient's known malignant disease. He did have a bronchoscopy and BAL on 12/09/2023. Microbiology has remained negative. History of PEG tube insertion, May 2023 Chronic obstructive pulmonary disease History of hypothyroidism Chronic ongoing tobacco dependence Plan: Obtain a follow-up CAT scan of the chest no contrast Awaiting pleural fluid for cell count and chemistry Awaiting pleural fluid cultures Awaiting pleural fluid cytology Blood cultures sputum samples are also sent and is also still pending Keep right-sided chest tube in place Cover the patient with broad-spectrum antibiotics Continue on tracheostomy collar with humidified oxygen Patient was again placed on empiric antibiotics in the form of Zosyn and vancomycin. The procalcitonin level is mildly elevated. Medical oncology were also consulted Patient is hemodynamically stable at this time. Overall prognosis is poor. Patient has changed his mind about hospice care. After a discussion with the ER physician, he wants to be a full code. May need a surgical evaluation by thoracic surgery should the patient decide to come out of hospice and proceed with routine medical care.
[2023-12-21] MEDS ORDERED: LORazepam 1 MG TAB PEG/G-TUBE PRN (14:42)
[2023-12-21] MEDS ORDERED: HALOPERIDOL ORAL SOLN 10 MG/5 ML CUP PEG/G-TUBE PRN (14:42)
[2023-12-21] MEDS ORDERED: IBUPROFEN 800 MG TAB PEG/G-TUBE PRN (14:42)
[2023-12-21] MEDS ORDERED: ACETAMINOPHEN SUPPOSITORY 650 MG SUPP RECTAL PRN (14:42)
--- NOTE | 2023-12-21 14:47 | CT ---
EXAMINATION TYPE: CT chest wo con DATE OF EXAM: 12/21/2023 COMPARISON: None HISTORY: Empyema CT DLP: 214.6 mGycm, Automated exposure control for dose reduction was used. CONTRAST: Performed injected with 0 mL of Isovue 300. TECHNIQUE: Axial images were obtained at 5 mm thick sections. Reconstructed images are reviewed on V[employer] computer in the coronal plane. FINDINGS: Portion of the thyroid visualized is normal. Tracheostomy tube is in the midline. Right-sided chest tube is present. Multiple air-fluid levels are within loculated effusion on the right. Correlate for empyema. Multiple emphysematous changes are present, greater on the right. Cavitary lesions previously present at the right mid lung. No enlarged mediastinal or hilar adenopathy is evident. The ascending aorta diameter at the level o f the main pulmonary artery is 3.3 cm. The main pulmonary artery diameter at the bifurcation is 3.0 cm. Some atelectasis or pneumonia is present at bilateral lung bases. Limited CT sections are obtained through the upper abdomen. PEG tube is present. IMPRESSION: 1. Moderate right pleural fluid. Multiple air-fluid levels are present. Chest tube is present anterio rly. Correlate for empyema. 2. COPD. 3. Tracheostomy tube in the midline.
--- NOTE | 2023-12-21 15:38 | P.PN ---
Subjective Progress Note Date: 12/21/23 Patient is a 58-year-old male with a past medical history of laryngeal cancer status post chemoradiation in July 2023 last tracheostomy and PEG tube placement, COPD, hypothyroidism, history of Graves' disease and currently everyday smoker presents to ER with worsening shortness of breath and hemopty sis. Patient was recently admitted to the hospital from 12/10/2023 to 12/17/2023 and was treated for postoperative pneumonia and COPD. Patient was discharged under hospice care. Patient states that he has been having copious amounts of secretions from the tracheostomy. Denies any fever. No nausea or vomiting. Patient had recent PET scan in September 2023 which showed persistent uptake in the posterior lateral right vocal cord compatible with neoplasm. Patient previously declined biopsy. Chest x-ray on admission showed increasing lucency throughout the right lung concerning for pneumothorax. Small pleural effusion may also be present. CT chest showed interval development of large right pneumothorax with large pneumothorax and small heterogenous complex right pleural effusion. There is consolidation changes around the right pulmonary hilum thought to represent atelectasis in the area of cavitation possibly secondary to prior mass. Retained secretions predominantly within the right main bronchus, right lower and right middle lobe large airways. Correlate for retained secretions. Co nsider bronchoscopy. Chest tube was placed by ER physician. Repeat chest x-ray showed right-sided c hest tube in place with significant decrease in size of right-sided hydro pneumothorax and partial reexpansion. Laboratory data showed WBC 16.9 hemoglobin 11.0 and platelets 475 Sodium 134 potassium 5.1 chloride 105 bicarb is 22 BUN 19 and creatinine 0.41 and blood sugar 64 albumin 2.6 and procalcitonin level is elevated to 0.22 12/21/2023 Patient is seen in follow-up today continues to report significant shortness of breath and pain in multiple areas including the right chest where his chest tube is. Home medications reviewed and resumed as appropriate and patient is continued on Dilaudid and will resume Baxter and his fentanyl patch. Follow-up chest x-ray today shows no significant change in pleural parenchymal opacity of the right lung base with slightly improved right apical pneumothorax. CT chest is ordered and pending at this time. Patient is continued on IV antibiotics in the form of Zosyn and vancomycin being added. Patient is afebrile with no reports of chest pain or palpitations. Patient continues on trach collar with a flow rate of 8 and FiO2 is 35%. Tolerating tube feeds thus far and will also add bowel regimen given he is on a number of different narcotics. Review of systems: Constitutional: No reports of fatigue, fever, or chills Cardiovascular: No reports of chest pain or palpitations Respiratory: reports of continued shortness of breath and right chest wall pain near the chest tube site GI: No reports of nausea, vomiting, or diarrhea, reports no bowel movements : No reports of dysuria or retention Neurovascular: No reports of weakness or numbness All medications have been reviewed PHYSICAL EXAMINATION: Patient is sitting up in the bed, appears slightly anxious, awake alert and oriented. Has tracheostomy.. HEENT: Normocephalic. Neck is supple. Pupils reactive. Nostrils clear. Oral cavity is moist. Neck reveals no JVD, carotid bruits, or thyromegaly. CHEST EXAMINATION: Trachea is central. Symmetrical expansion. Bibasilar coarse sounds and crackles. Nonlabored breathing.. CARDIAC: Normal S1, S2 with no gallops. No murmurs ABDOMEN: Soft. Thin, scaphoid bowel sounds normal. No organomegaly. No abdominal bruits. PEG tube noted Extremities: reveal no edema. No clubbing or cyanosis Neurologically awake, alert, oriented x3. Able to move all extremities. No gross focal neurological deficits.. Skin: No rash or skin lesions. Psychiatric: Cooperative. Non-suicidal Musculoskeletal: No joint swelling or deformity. Assessment: Acute large right-sided hydropneumothorax status post chest tube placement with decrease in size of the right-sided hydropneumothorax and partial reexpansion. Acute on chronic hypoxemic respiratory failure secondary to above, on trach collar FiO2 is 35% and O2 is 8 L Acute hemoptysis on admission History of laryngeal cancer status post chemoradiation in July 2023 and tracheostomy and PEG tube placement. Patient had PET scan done in September 2023 showed persistent uptake in the posterior lateral right cord level compatible with neoplasm. Patient declined biopsy on previous admission last week Recent admission for from 11/19/2023 to 12/17/2023 postobstructive pneumonia and also CT evidence of lobular heterogenous mass and necrotic components in the right middle lobe. Status post bronchoscopy and biopsy. BAL cultures negative and biopsies nondiagnostic for malignancy. Hypothyroidism History of Graves' disease COPD Ongoing nicotine addiction DVT prophylaxis with heparin subcu GI prophylaxis Full code Plan: Patient is on humidified oxygen via trach collar with an FiO2 of 35% and oxygen is 8 L. Status post right-sided chest tube placement with suction due to hydropneumothorax. Chest x-ray shows some resolution in the pneumothorax on the right and continues with a chest tube at this time. Pulmonary following along with oncology and awaiting on pleural fluid cytology Patient is being continued on IV antibiotics in the form of Zosyn. Procalcitonin level is 0.22 concerns of possible postobstructive pneumonia Continue with breathing treatments and follow-up culture reports. Patient reports intense pain and breakthrough pain including of the right chest tube wall area and will resume home medications and continue on Dilaudid. Fentanyl patch is being resumed from home as well as as needed Baxter. Will add bowel regimen and continue with stool softeners Patient was previously transferred to hospice care but currently would like to be full code. Due to multiple complex medical issues, prognosis is poor and guarded The impression and plan of care has been dictated by Virginie Urbina, Nurse Practitioner as directed. Dr. Adriel MD I have performed a history and examination and MDM of this patient, discussed the same with the dictator, and agree with the dictator's assessment and plan as written ,documented as a scribe. Based on total visit time, I have performed more than 50% of the visit. Objective - Vital Signs Vital signs: Vital Signs Temp 97.9 F 12/21/23 08:00 Pulse 90 12/21/23 08:00 Resp 16 12/21/23 08:00 BP 93/59 12/21/23 08:00 Pulse Ox 90 L 12/21/23 04:45 FiO2 35 12/20/23 20:22 Intake & Output 12/20/23 12/21/23 12/21/23 18:59 06:59 18:59 Intake Total 20 Output Total 550 0 Balance -530 0 Weight 58.967 kg Intake: IV 20 Invasive Line 2 20 Output: Chest Tube Drainage 0 0 Chest Tube Right Mid- 0 0 Axillary Chest Urine 550 Other: Voiding Method Urinal Urinal - Labs CBC & Chem 7: 12/21/23 09:38 12/21/23 09:38 Labs: Microbiology - Last 24 Hours (Table) 12/19/23 16:52 Blood Culture - Preliminary Blood
[2023-12-21] MEDS: HYDROcodone/APAP 5-325MG 1 EACH TAB PEG/G-TUBE PRN (17:20)
[2023-12-21] MEDS: SENNOSIDES 8.6 MG TAB PO SCH (19:51)
[2023-12-21] MEDS ORDERED: VANCOMYCIN 1,000 MG in SODIUM CHLORIDE 0.9% 250 ML IVPB SCH (20:00)
[2023-12-21] MEDS: VANCOMYCIN TROUGH DUE 1 EACH MISC MISCELLANE ONE (21:49)
[2023-12-21 22:06] LABS: Appearance,BF Cloudy (Clear)
[2023-12-21] MEDS: PIPERACILLIN-TAZOBACTAM 3.375 GM in SODIUM CHLORIDE 0.9% 100 ML IVPB SCH (22:22)
[2023-12-21] MEDS: VANCOMYCIN 1,250 MG in SODIUM CHLORIDE 0.9% 250 ML IVPB SCH (22:23)
[2023-12-22 01:24] LABS: T. Protein, Body Fluid Source Pleural fluid; Total Protein, Body Fluid 3410 mg/dL
[2023-12-22 01:54] LABS: Glucose, BF Source Pleural fluid; Glucose, Body Fluid <2 mg/dL; LDH, Body Fluid Source Pleural fluid
[2023-12-22 02:53] LABS: Glucose,Whole Blood 215 mg/dL (70-110)
--- NOTE | 2023-12-22 04:00 | XR ---
EXAM: XR Chest, 1 View CLINICAL HISTORY: ITS.REASON XR Reason: increased O2 demands; known hydropneumothorax TECHNIQUE: Frontal view of the chest. COMPARISON: 12/21/2023 IMPRESSION: Mildly increased opacity in the right lower lobe. Moderate pleural effusion. Trace right apical pneumothorax
[2023-12-22 09:41] LABS: African American GFR (CKD) >90 (>60 ml/min/1.73 sqM); Non-African American GFR(CKD) >90 (>60 ml/min/1.73 sqM)
--- NOTE | 2023-12-22 11:09 | P.PN ---
Subjective Progress Note Date: 12/22/23 Patient is a 58-year-old white male with past medical history significant for known laryngeal cancer status post tracheostomy, PEG tube insertion, chronic ongoing tobacco dependence, hypothyroidism, Graves' disease, diverticulosis. Patient's laryngeal cancer was previously treated with chemoradiation. No current treatment. Patient recently had a PET scan done September, which revealed persistent uptake in the posterior lateral right cord level compatible with neoplasm. There was a right lower lobe pulmonary nodule measuring 1.2 cm with SUV value of 5.2, suspicious for either primary lung cancer versus metastasis of his laryngeal cancer. He had previously declined biopsy in the past, however, the patient had a recent hospital admission 12/09/2023 through 12/17/2023 for possible postobstructive pneumonia. His CT of the chest during that admission showed lobular heterogenous mass with internal cystic and necrotic components centered in the right middle lobe. Favored to represent interval progression of the patient's known malignant disease. He did have a bronchoscopy with BAL on 12/09/2023. Microbiology has remained negative. Biopsies taking were nondiagnostic for malignancy. Patient ended up going home on hospice care. While at home, he had episodes of hemoptysis and was very short of breath. He ended up calling 911. He has changed his decision to proceed with hospice. In fact, he wants to be full code. He is currently in the emergency room, room 1. He is sitting up in the stretcher, in no acute distress, he is currently on room air. He denies any fevers. Denies any chest pain. Denies trauma. Reports hemoptysis, unable to quantify how much. There is a trach collar lying in his lap set at 35%, however, he does not wish to wear this. Follow-up chest CT this admission shows interval development of a large right hydropneumothorax. There was also consolidative changes around the right pulmonary hilum thought to represent atelectasis with areas of cavitation in the area of the the previously described mass. There are retrained secretions predominantly within the right main bronchus, right lower lobe, and right middle lobe large airways. A right-sided chest tube was placed by the ER physician. This is currently hooked to continuous suction at 20 cm of H2O. No observable airleak. Approximately 450 mL of serosanguineous drainage in the collection chamber. A follow-up chest x-ray shows the right-sided chest tube in place, with a significant decrease in size of the right sided hydro and pneumothorax and partial reexpansion. CBC this admission, WBC count 16.9, hemoglobin 11, hematocrit 34.6, platelets 475. CMP this admission is unremarkable. Normal saline infusing at 75 mL/h. Patient was empirically started on Zosyn. Patient is hemodynamically stable. I saw this patient in the emergency department. The patient already had a right-sided chest tube in place. Output was noted. The fluid is rather cloudy. I suspect an underlying empyema/complicated pleural infection. I also reviewed the earlier CAT scan of the chest that was done back in November 2023. At that time, the patient had a masslike consolidation involving the right midlung area and this could have represented an area of lung abscess. Note that the bronchoscopy endobronchial lavage came back negative at that time.I repeated the chest x-ray from this afternoon and the right-sided chest tube is in place and there is a residual right-sided pneumothorax and there is persistent complex collection in the right lung compatible with his history of pulmonary infection/empyema. The patient is currently on a broad-spectrum antibiotic utilizing Zosyn. As far as the blood work, the procalcitonin level is at 0.22. Rest of the blood work was noted. He is clinically and hemodynamically stable with a pulse ox of 91% on room air oxygen. Communicating. He has a tracheostomy tube in place. On today's evaluation of 12/21/2023, the patient is being seen for a follow-up. Awaiting the pleural fluid analysis. Noted output from the chest tube is minimal and the patient has put out minimal amount of output since yesterday. Total amount of output has not been in the order of 500 cc since the patient arrived to the medical floor. Procalcitonin level is at 0.22. The white cell count is currently at 15.2 with a hemoglobin 10.5 and a platelet count of 5-66. The patient remains on Zosyn and vancomycin. Repeat chest x-ray was done today and it showed no significant interval change compared to yesterday. The chest tube is in good location. There is a very tiny right apical pneumothorax measuring approximately 6 mm in size. There is also pleural-parenchymal opacity in the right lung base that remains unchanged and obviously this needs to be further investigated by CAT scan of the chest and this will be ordered in the form of a noncontrast enhanced CAT scan to be done today. The patient is on room air oxygen. The patient has tracheostomy tube in place. The blood cultures are negative. Sputum samples also sent and the results are still pending for now. Pleural fluid analysis also pending. On today's evaluation of 12/22/2023, I am seeing the patient for a follow-up. The patient is currently on a trach collar with 10 L of oxygen with an FiO2 of 40%. He is calm and comfortable and is not having any significant respiratory distress. The pleural fluid analysis shows no microbial growth for now. Nevertheless, the fluid is an exudate with elevated LDH and protein and low sugar very much consistent with a complicated parapneumonic effusion/. I also repeated the CAT scan of the chest on this patient and this was a noncontrast CAT scan of the chest that was completed yesterday and shows some persistence in the right-sided pleural effusion in the posterior right lung base along with multiple air-fluid levels present. The chest tube is present anteriorly. Noted output from the chest tube has been minimal at this point in time. No evidence of any significant pneumothorax. Similar findings were seen on today's chest x- ray. Labs from today are still pending for now. Patient remains on a combination of Zosyn and vancomycin. I discussed the findings with the patient I also discussed the findings with interventional radiology. The plan is to put the pigtail catheter in the right lower lobe complex fluid collection as noted on the CAT scan of the chest. Meanwhile, the patient continues to receive enteral feeding for nutritional support. He is quite debilitated. Objective - Vital Signs Vital signs: Vital Signs Temp 97.5 F L 12/22/23 08:00 Pulse 98 12/22/23 08:00 Resp 18 12/22/23 08:00 BP 96/59 12/22/23 08:00 Pulse Ox 77 L 12/22/23 09:18 FiO2 40 12/22/23 09:18 Intake & Output 12/21/23 12/22/23 12/22/23 18:59 06:59 18:59 Output Total 0 0 0 Balance 0 0 0 Weight 59.148 kg 60 kg Output: Chest Tube Drainage 0 0 0 Chest Tube Right Mid- 0 0 0 Axillary Chest Other: Voiding Method Urinal Urinal Urinal # Voids 1 - Exam GENERAL EXAM: Alert, 58-year-old white male, currently on room air, comfortable in no apparent distress. The patient is tracheostomy tube in place. The patient has a trach collar with 10 L of oxygen and FiO2 of 40%. HEAD: Normocephalic and atraumatic EYES: Normal reaction of pupils, equal size. NOSE: Clear with pink turbinates. THROAT: No erythema or exudates. NECK: No masses, no JVD. Tracheostomy insertion site clean and dry. CHEST: Right-sided chest tube hooked to suction at 20 cm H2O, no observable leak, a total of 450 mL of serosanguineous drainage in the collection chamber. LUNGS: Equal air entry with scattered crackles and rhonchi, especially worse within the right posterior lung poon. The patient has right-sided chest tube in place. No significant output. No significant air leak. CVS: S1 and S2 normal with no audible murmur, regular rhythm. No extra heart sounds ABDOMEN: No hepatosplenomegaly, active bowel sounds, no guarding or rigidity. PEG tube site clean and dry. SPINE: No scoliosis or deformity SKIN: No rashes CENTRAL NERVOUS SYSTEM: No focal deficits, tone is normal in all 4 extremities. EXTREMITIES: There is no peripheral edema, clubbing, or cyanosis. Peripheral pulses are intact. - Labs CBC & Chem 7: 12/21/23 09:38 12/22/23 08:23 Labs: Abnormal Lab Results - Last 24 Hours (Table) 12/21/23 12/21/23 12/21/23 Range/Units 08:00 09:38 09:38 WBC 15.2 H (3.8-10.6) k/uL RBC 3.45 L (4.30-5.90) m/uL Hgb 10.5 L (13.0-17.5) gm/dL Hct 34.9 L (39.0-53.0) % MCV 101.3 H (80.0-100.0) fL MCHC 30.0 L (31.0-37.0) g/dL Plt Count 566 H (150-450) k/uL Neutrophils # 13.9 H (1.3-7.7) k/uL Lymphocytes # 0.5 L (1.0-4.8) k/uL Creatinine 0.52 L (0.66-1.25) mg/dL Glucose 54 L (74-99) mg/dL POC Glucose (mg/dL) (70-110) mg/dL Calcium 8.0 L (8.4-10.2) mg/dL Total Protein 4.8 L (6.3-8.2) g/dL Fluid Appearance Cloudy A (Clear) 12/22/23 12/22/23 Range/Units 02:51 08:23 WBC (3.8-10.6) k/uL RBC (4.30-5.90) m/uL Hgb (13.0-17.5) gm/dL Hct (39.0-53.0) % MCV (80.0-100.0) fL MCHC (31.0-37.0) g/dL Plt Count (150-450) k/uL Neutrophils # (1.3-7.7) k/uL Lymphocytes # (1.0-4.8) k/uL Creatinine 0.45 L (0.66-1.25) mg/dL Glucose (74-99) mg/dL POC Glucose (mg/dL) 215 H (70-110) mg/dL Calcium (8.4-10.2) mg/dL Total Protein (6.3-8.2) g/dL Fluid Appearance (Clear) Microbiology - Last 24 Hours (Table) 12/19/23 16:52 Blood Culture - Preliminary Blood 12/20/23 18:30 Gram Stain - Preliminary Sputum Assessment and Plan Plan: Acute large right-sided hydropneumothorax, status post chest tube insertion. Based on my review of the various CAT scans it is possible that the patient developed an area of empyema/lung abscess and the patient had a masslike consolidation of the right midlung back in November 2023. Cultures at that time obtained via bronchoscopy and bronchial lavage was negative. Subsequently, the patient presents with a large hydropneumothorax and chest tube was inserted and this is most likely consistent with a pleural space infection As the patient has a heterogeneous complex right pleural effusion with pneumothorax and areas of consolidation around the right pulmonary hilum with areas of cavitation. White cell count is mildly elevated at 16.9. Hemodynamically stable. Right-sided chest was been inserted. The fluid analysis shows a complicated parapneumonic effusion. Cultures are still pending. Output from the chest was minimal. Repeat CAT scan of the chest was done yesterday and the patient continues to have air-fluid level and a complex fluid collection in the right lung base consistent with residual pleural effusion and some loculation. The right-sided chest tube is seen anteriorly without any significant drainage. Pneumothorax has essentially recovered. The patient has some bullous emphysematous changes bilaterally. Acute hemoptysis, resolved, currently inactive and stable Acute on chronic hypoxemic respiratory failure, secondary to above, currently on 40% trach collar History of laryngeal cancer status/post chemoradiation and tracheostomy, PET scan done September, which revealed persistent uptake in the posterior lateral right cord level compatible with neoplasm. There was a right lower lobe pulmonary nodule measuring 1.2 cm with SUV value of 5.2, suspicious for either primary lung cancer versus metastasis of his laryngeal cancer. He had previously declined biopsy in the past, however, the patient had a recent hospital admission 12/09/2023 through 12/17/2023 for possible postobstructive pneumonia. His CT of the chest during that admission showed lobular heterogenous mass with internal cystic and necrotic components centered in the right middle lobe. Favored to represent interval progression of the patient's known malignant disease. He did have a bronchoscopy and BAL on 12/09/2023. Microbiology has remained negative. History of PEG tube insertion, May 2023 Chronic obstructive pulmonary disease History of hypothyroidism Chronic ongoing tobacco dependence Plan: Reviewed the CAT scan of the chest Discussed the case with interventional radiology and the patient may possibly benefit from a pigtail catheter to drain the residual posterior loculated right- sided pleural effusion that is quite complex. He may also benefit from tPA administration of the pleural space once the pigtail catheter has been inserted. Meanwhile, will keep the chest tube in place and monitor the output. Pleural fluid chemistry has been noted Awaiting pleural fluid cultures Awaiting pleural fluid cytology Blood cultures sputum samples are also sent and is also still pending Keep right-sided chest tube in place Cover the patient with broad-spectrum antibiotics Continue on tracheostomy collar with humidified oxygen Patient was again placed on empiric antibiotics in the form of Zosyn and vancomycin. The procalcitonin level is mildly elevated. Medical oncology were also consulted Patient is hemodynamically stable at this time. Overall prognosis is poor. Patient has changed his mind about hospice care. After a discussion with the ER physician, he wants to be a full code. May need a surgical evaluation by thoracic surgery should the patient decide to come out of hospice and proceed with routine medical care. Note that the patient's overall condition is quite debilitated and the patient may not be a good surgical candidate we will try to manage him conservatively by chest tube and percutaneous drainage. He is also on antibiotics.
[2023-12-22 12:03] LABS: Prothrombin Time 10.9 sec (10.0-12.5)
--- NOTE | 2023-12-22 14:00 | XR ---
EXAMINATION TYPE: XR chest 2V DATE OF EXAM: 12/22/2023 COMPARISON: 12/22/2023 HISTORY: Shortness of breath TECHNIQUE: Frontal and lateral views of the chest are obtained. FINDINGS: Right basilar pleural-parenchymal density with air-fluid level seen in hydropneumothorax compatible w ith empyema now demonstrates a pleural catheter which is appropriately placed. Right-sided chest tube is noted to be in place. Tiny right apical pneumothorax unchanged. Left basilar increased density may reflect atelectasis or developing infiltrate. Heart size is stable. Mediastinal structures are stable and grossly unremarkable. No evidence for hilar prominence. Degenerative changes dorsal spine. IMPRESSION: 1. Right basilar pleural-parenchymal density with air-fluid level seen in hydropneumothorax compatibl e with empyema now demonstrates a pleural catheter which is appropriately placed. Right-sided chest t ube is noted to be in place.
--- NOTE | 2023-12-22 14:49 | US ---
Ultrasound-guided right chest tube insertion DATE OF EXAM: 12/22/2023 CLINICAL HISTORY: Empyema The procedure was discussed with the patient. The risks, complications, benefits, and alternatives we re discussed and any questions were answered. Informed consent was obtained. The patient was placed supine on the ultrasound table and prepped and draped in the usual sterile fas hion. All elements of maximal barrier and sterile technique were utilized. Under ultrasound guidance, access into the pleural space was obtained, via the thoracentesis catheter system and direct ultrasound guidance.Rep eat imaging demonstrated ideal placement of the catheter. The patient was stable throughout the procedure and remained stable upon discharge from Department of Radiology. IMPRESSION: 1. Successful ultrasound-guided chest tube insertion.
--- NOTE | 2023-12-22 15:08 | P.CONS ---
History of Present Illness - Reason for Consult Consult date: 12/22/23 Pneumonia, pneumothorax, empyema Requesting physician: Virginie Urbina - Chief Complaint Increasing shortness of breath x few days - History of Present Illness Patient is a 58-year-old male with a past medical history significant for squamous cell carcinoma of the head and neck with a recent PET scan showing activity in the lungs recently admitted to the hospital status post CT of the chest which did show heterogeneous mass with solid cystic and necrotic com ponent in the right middle lobe s/p bronchoscopy this culture negative patient was discharged to hospice, patient now presenting back to the hospital 3 days ago for evaluation of increasing shortness of breath and hemoptysis, patient also complaining of large amount of secretion out of his trach and increasing shortness of breath with a bloody sputum denies fever or any chest pain on presentation to the hospital the patient was afebrile and no fever and recorded subsequently patient was mildly tachycardic but not hypotensive however has been hypoxia currently on 15 L nonrebreather patient did have white count of 16.9 creatinine 0.41 procalcitonin 0.22 patient did have repeat CT of the chest we did shows a large right-sided hydropneumothorax for which the patient did have a chest tube insertion on the right side with the fluid cloudy and concerning for possible empyema patient is current on combination of vancomycin and Zosyn infectious disease was consulted today for further management of antibiotic therapy Review of Systems Positive point and negatives has been mentioned in the HPI, complete review of systems was performed and all other systems are negative Past Medical History Past Medical History: Cancer, COPD, Syncope, Thyroid Disorder Additional Past Medical History / Comment(s): Graves disease, diverticulosis, esophageal cancer with radiation and chemolast 08/05 at [facility] History of Any Multi-Drug Resistant Organisms: None Reported Past Surgical History: Tonsillectomy Additional Past Surgical History / Comment(s): vasectomy, biopsy of throat, trach Past Anesthesia/Blood Transfusion Reactions: No Reported Reaction Past Psychological History: No Psychological Hx Reported Smoking Status: Current every day smoker Past Alcohol Use History: None Reported Past Drug Use History: None Reported - Past Family History Father History Unknown: Yes Medications and Allergies Home Medications Medication Instructions Recorded Confirmed Type Omeprazole [PriLOSEC] 20 mg PEG/G-TUBE BID PRN 05/20/23 12/19/23 History Ibuprofen [Motrin] 800 mg PEG/G-TUBE Q8H PRN 12/09/23 12/19/23 History Acetaminophen Suppository [Tylenol 650 mg RECTAL Q4H PRN 12/19/23 12/19/23 History Suppository] Albuterol Sulfate/Budesonide 1 puff INHALATION RT-BID 12/19/23 12/19/23 History [Airsupra 90-80 Mcg Inhaler] Amoxic-Pot Clav 875-125Mg 1 tab PEG/G-TUBE Q12HR 12/19/23 12/19/23 History [Augmentin 875-125] HYDROcodone/APAP 5-325MG [Peggs 2 tab PEG/G-TUBE Q4H PRN 12/19/23 12/19/23 History 5-325] Haloperidol Oral Soln [Haldol Oral 1 mg PEG/G-TUBE Q4H PRN 12/19/23 12/19/23 History Soln] LORazepam [Ativan] 1 mg PEG/G-TUBE Q4H PRN 12/19/23 12/19/23 History MORPHINE ORAL DAISY CONC 20mg/mL 5 mg PEG/G-TUBE Q4HR PRN 12/19/23 12/19/23 History [Roxanol Oral Soln Conc 20MG/ML] Scopolamine [Scopolamine 1 MG/72 1 patch TRANSDERM Q72H PRN 12/19/23 12/19/23 History HR patch] bisacodyL [Dulcolax] 10 mg RECTAL DAILY PRN 12/19/23 12/19/23 History fentaNYL 25MCG/HR PATCH [Duragesic 1 patch TRANSDERM Q72H 12/19/23 12/19/23 History 25MCG/HR] predniSONE See Taper PEG/G-TUBE DIRECTED 12/19/23 12/19/23 History Allergies Allergy/AdvReac Type Severity Reaction Status Date / Time morphine AdvReac Rash/Hives Verified 12/21/23 02:00 Physical Exam Vitals: Vital Signs Temp Pulse Pulse Resp BP Pulse Ox FiO2 12/22/23 13:05 87 20 116/62 88 L 12/22/23 12:52 90 20 110/56 89 L 12/22/23 12:40 98.0 F 90 22 108/66 88 L 12/22/23 12:00 97.7 F 87 16 91/57 92 L 12/22/23 09:18 77 L 40 12/22/23 08:00 97.5 F L 98 18 96/59 93 L 60 12/22/23 04:00 100 20 92 L 60 12/22/23 03:45 60 12/22/23 03:17 97.8 F 116 H 20 110/70 89 L 40 12/22/23 03:00 100 20 12/22/23 02:25 91 L 40 12/22/23 02:15 124 H 20 91 L 40 12/22/23 02:00 97.9 F 116 H 20 104/58 87 L 35 12/21/23 21:34 35 12/21/23 20:00 100 18 12/21/23 19:50 98.2 F 100 18 91/56 89 L 12/21/23 19:30 98.2 F 110 H 16 87/57 84 L 12/21/23 17:16 104/59 12/21/23 16:26 68 17 93/52 90 L 12/21/23 15:28 97.8 F 101 H 19 93/52 89 L 12/21/23 15:21 35 Intake and Output 12/21/23 12/22/23 12/22/23 22:59 06:59 14:59 Output Total 0 0 0 Balance 0 0 0 Output: Chest Tube Drainage 0 0 0 Chest Tube Right Mid- 0 0 0 Axillary Chest Other: Voiding Method Urinal Urinal Urinal # Voids 1 Weight 60 kg GENERAL DESCRIPTION: Middle-aged male lying in bed, no distress. No tachypnea or accessory muscle of respiration use. HEENT: Shows Pallor , no scleral icterus. Oral mucous membrane is dry. NECK: Tracheostomy LUNGS: Unlabored breathing. Decreased breath sound at the base HEART: S1, S2, regular rate and rhythm. No loud murmur ABDOMEN: Soft, no tenderness , EXTREMITIES: No edema of feet. SKIN: No rash, no masses palpable. NEUROLOGICAL: The patient is awake, alert, mood and affect normal. Results CBC & Chem 7: 12/24/23 06:44 12/24/23 06:44 Labs: Abnormal Lab Results - Last 24 Hours (Table) 12/21/23 12/22/23 12/22/23 Range/Units 08:00 02:51 08:23 Creatinine 0.45 L (0.66-1.25) mg/dL POC Glucose (mg/dL) 215 H (70-110) mg/dL Fluid Appearance Cloudy A (Clear) Microbiology - Last 24 Hours (Table) 12/20/23 18:30 Nasal Screen MRSA/MSSA - Final Nasal Swab 12/19/23 16:52 Blood Culture - Preliminary Blood Assessment and Plan (1) Empyema Current Visit: Yes Status: Acute Code(s): J86.9 - PYOTHORAX WITHOUT FISTULA SNOMED Code(s): 333201739 (2) Leukocytosis Current Visit: Yes Status: Acute Code(s): D72.829 - ELEVATED WHITE BLOOD CELL COUNT, UNSPECIFIED SNOMED Code(s): 234685869 (3) Pneumonia Current Visit: Yes Status: Acute Priority: High Code(s): J18.9 - PNEUMONIA, UNSPECIFIED ORGANISM SNOMED Code(s): 967090623 Plan: 1patient presenting to the hospital with increasing shortness of breath and hemoptysis in this patient who did have a CT of the chest with evidence of moderate right effusion with multiple air-fluid level concerning for empyema status post chest tube placement 2-we will check inflammatory markers and wait for the culture to finalize 3-patient is currently on Zosyn and vancomycin however need to monitor his kidney function closely with this antibiotic combination We will follow on clinical condition and cultures to further adjust medication if needed Thank you for this consultation we will follow the patient along with you Dictation was produced using [employer] dictation software. please excuse any grammatical, word or spelling errors.
[2023-12-22] MEDS: DORNASE ALFA 5 MG in SODIUM CHLORIDE 0.9% 50 ML IRRIGATION ONE (15:37)
[2023-12-22] MEDS: ALTEPLASE 10 MG in SODIUM CHLORIDE 0.9% 50 ML IRRIGATION ONE (15:38)
[2023-12-22] MEDS: VANCOMYCIN TROUGH DUE 1 EACH MISC MISCELLANE ONE (20:52)
[2023-12-23 05:58] LABS: Glucose,Whole Blood 103 mg/dL (70-110)
--- NOTE | 2023-12-23 06:11 | P.PN ---
Subjective Progress Note Date: 12/22/23 Patient is a 58-year-old male with a past medical history of laryngeal cancer status post chemoradiation in July 2023 last tracheostomy and PEG tube placement, COPD, hypothyroidism, history of Graves' disease and currently everyday smoker presents to ER with worsening shortness of breath and hemopty sis. Patient was recently admitted to the hospital from 12/10/2023 to 12/17/2023 and was treated for postoperative pneumonia and COPD. Patient was discharged under hospice care. Patient states that he has been having copious amounts of secretions from the tracheostomy. Denies any fever. No nausea or vomiting. Patient had recent PET scan in September 2023 which showed persistent uptake in the posterior lateral right vocal cord compatible with neoplasm. Patient previously declined biopsy. Chest x-ray on admission showed increasing lucency throughout the right lung concerning for pneumothorax. Small pleural effusion may also be present. CT chest showed interval development of large right pneumothorax with large pneumothorax and small heterogenous complex right pleural effusion. There is consolidation changes around the right pulmonary hilum thought to represent atelectasis in the area of cavitation possibly secondary to prior mass. Retained secretions predominantly within the right main bronchus, right lower and right middle lobe large airways. Correlate for retained secretions. Co nsider bronchoscopy. Chest tube was placed by ER physician. Repeat chest x-ray showed right-sided c hest tube in place with significant decrease in size of right-sided hydro pneumothorax and partial reexpansion. Laboratory data showed WBC 16.9 hemoglobin 11.0 and platelets 475 Sodium 134 potassium 5.1 chloride 105 bicarb is 22 BUN 19 and creatinine 0.41 and blood sugar 64 albumin 2.6 and procalcitonin level is elevated to 0.22 12/21/2023 Patient is seen in follow-up today continues to report significant shortness of breath and pain in multiple areas including the right chest where his chest tube is. Home medications reviewed and resumed as appropriate and patient is continued on Dilaudid and will resume [place] and his fentanyl patch. Follow-up chest x-ray today shows no significant change in pleural parenchymal opacity of the right lung base with slightly improved right apical pneumothorax. CT chest is ordered and pending at this time. Patient is continued on IV antibiotics in the form of Zosyn and vancomycin being added. Patient is afebrile with no reports of chest pain or palpitations. Patient continues on trach collar with a flow rate of 8 and FiO2 is 35%. Tolerating tube feeds thus far and will also add bowel regimen given he is on a number of different narcotics. 12/22/2023 Patient is seen and evaluated in follow-up maintained on trach collar and high flow oxygen with continued right chest tube. There is noted fluid collection on the CT imaging from yesterday and IR has been consulted possible pigtail catheter placement as it appears somewhat loculated. Present right-sided chest tube with minimal output noted per nursing staff. Patient is maintained on antibiotics and will consult infectious disease and appreciate input and recommendations. Cultures all remain pending thus far. Cytology is pending as well. Overall prognosis remains poor and guarded at this time. Patient wishes to remain full code. Review of systems: Constitutional: No reports of fatigue, fever, or chills Cardiovascular: No reports of chest pain or palpitations Respiratory: reports of continued shortness of breath and right chest wall pain near the chest tube site GI: No reports of nausea, vomiting, or diarrhea, reports no bowel movements : No reports of dysuria or retention Neurovascular: No reports of weakness or numbness All medications have been reviewed PHYSICAL EXAMINATION: Patient is sitting up in the bed, appears slightly anxious, awake alert and oriented. Has tracheostomy.. HEENT: Normocephalic. Neck is supple. Pupils reactive. Nostrils clear. Oral cavi ty is moist. Neck reveals no JVD, carotid bruits, or thyromegaly. CHEST EXAMINATION: Trachea is central. Symmetrical expansion. Bibasilar coarse sounds and crackles. Nonlabored breathing.. CARDIAC: Normal S1, S2 with no gallops. No murmurs ABDOMEN: Soft. Thin, scaphoid bowel sounds normal. No organomegaly. No abdominal bruits. PEG tube noted Extremities: reveal no edema. No clubbing or cyanosis Neurologically awake, alert, oriented x3. Able to move all extremities. No gross focal neurological deficits.. Skin: No rash or skin lesions. Psychiatric: Cooperative. Non-suicidal Musculoskeletal: No joint swelling or deformity. Assessment: Acute large right-sided hydropneumothorax status post chest tube placement with decrease in size of the right-sided hydropneumothorax and partial reexpansion. Acute on chronic hypoxemic respiratory failure secondary to above, on trach collar FiO2 is 35% and O2 is 11 L Acute hemoptysis on admission History of laryngeal cancer status post chemoradiation in July 2023 and tracheostomy and PEG tube placement. Patient had PET scan done in September 2023 showed persistent uptake in the posterior lateral right cord level compatible with neoplasm. Patient declined biopsy on previous admission last week Recent admission for from 11/19/2023 to 12/17/2023 postobstructive pneumonia and also CT evidence of lobular heterogenous mass and necrotic components in the right middle lobe. Status post bronchoscopy and biopsy. BAL cultures negative and biopsies nondiagnostic for malignancy. Hypothyroidism History of Graves' disease COPD Ongoing nicotine addiction DVT prophylaxis with heparin subcu GI prophylaxis Full code Plan: Patient is on humidified oxygen via trach collar with an FiO2 of 35% and oxygen is 11 L. Status post right-sided chest tube placement with suction due to hydropneumothorax. Chest x-ray shows some resolution in the pneumothorax on the right and continues with a chest tube at this time. Per nursing staff minimal output noted and IR has been consulted for possible pigtail catheter placement as some of the fluid appears loculated on CT imaging from yesterday. Pulmonary following along with oncology and awaiting on pleural fluid cytology Patient is being continued on IV antibiotics in the form of Zosyn and vancomy rohit. Procalcitonin level is 0.22 concerns of possible postobstructive pneumonia. Will consult infectious disease and appreciate input and recommendations3 Continue with breathing treatments and follow-up culture reports. Patient reports intense pain and breakthrough pain including of the right chest tube wall area and will resume home medications and continue on Dilaudid. Fentanyl patch is being resumed from home as well as as needed [place]. Will add bowel regimen and continue with stool softeners Patient was previously transferred to hospice care but currently would like to be full code. Due to multiple complex medical issues, prognosis is poor and guarded The impression and plan of care has been dictated by Virginie Urbina, Nurse Practitioner as directed. Dr. Adriel MD I have performed a history and examination and MDM of this patient, discussed the same with the dictator, and agree with the dictator's assessment and plan as written ,documented as a scribe. Based on total visit time, I have performed more than 50% of the visit. Objective - Vital Signs Vital signs: Vital Signs Temp 97.5 F L 12/22/23 08:00 Pulse 98 12/22/23 08:00 Resp 18 12/22/23 08:00 BP 96/59 12/22/23 08:00 Pulse Ox 77 L 12/22/23 09:18 FiO2 40 12/22/23 09:18 Intake & Output 12/21/23 12/22/23 12/22/23 18:59 06:59 18:59 Output Total 0 0 Balance 0 0 Weight 59.148 kg 60 kg Output: Chest Tube Drainage 0 0 Chest Tube Right Mid- 0 0 Axillary Chest Other: Voiding Method Urinal Urinal # Voids 1 - Labs CBC & Chem 7: 12/21/23 09:38 12/22/23 08:23 Labs: Abnormal Lab Results - Last 24 Hours (Table) 12/21/23 12/21/23 12/21/23 Range/Units 08:00 09:38 09:38 WBC 15.2 H (3.8-10.6) k/uL RBC 3.45 L (4.30-5.90) m/uL Hgb 10.5 L (13.0-17.5) gm/dL Hct 34.9 L (39.0-53.0) % MCV 101.3 H (80.0-100.0) fL MCHC 30.0 L (31.0-37.0) g/dL Plt Count 566 H (150-450) k/uL Neutrophils # 13.9 H (1.3-7.7) k/uL Lymphocytes # 0.5 L (1.0-4.8) k/uL Creatinine 0.52 L (0.66-1.25) mg/dL Glucose 54 L (74-99) mg/dL POC Glucose (mg/dL) (70-110) mg/dL Calcium 8.0 L (8.4-10.2) mg/dL Total Protein 4.8 L (6.3-8.2) g/dL Fluid Appearance Cloudy A (Clear) 12/22/23 12/22/23 Range/Units 02:51 08:23 WBC (3.8-10.6) k/uL RBC (4.30-5.90) m/uL Hgb (13.0-17.5) gm/dL Hct (39.0-53.0) % MCV (80.0-100.0) fL MCHC (31.0-37.0) g/dL Plt Count (150-450) k/uL Neutrophils # (1.3-7.7) k/uL Lymphocytes # (1.0-4.8) k/uL Creatinine 0.45 L (0.66-1.25) mg/dL Glucose (74-99) mg/dL POC Glucose (mg/dL) 215 H (70-110) mg/dL Calcium (8.4-10.2) mg/dL Total Protein (6.3-8.2) g/dL Fluid Appearance (Clear) Microbiology - Last 24 Hours (Table) 12/19/23 16:52 Blood Culture - Preliminary Blood 12/20/23 18:30 Gram Stain - Preliminary Sputum
[2023-12-23 10:34] LABS: Basophils % (A) 0 %; Eosinophils # (A) 0.1 k/uL (0-0.7); Eosinophils % (A) 1 %; HCT 30.4 % (39.0-53.0); Hypochromasia Marked; Lymphocytes # (A) 0.6 k/uL (1.0-4.8); Lymphocytes % (A) 7 %; MCH 30.4 pg (25.0-35.0); MCHC 29.4 g/dL (31.0-37.0); MCV 103.3 fL (80.0-100.0); Macrocytosis Slight; Mean Platelet Volume 8.3; Monocytes # (A) 0.4 k/uL (0-1.0); Monocytes % (A) 4 %; Neutrophils # (A) 8.2 k/uL (1.3-7.7); Neutrophils % (A) 88 %; Platelet Count 428 k/uL (150-450); RBC 2.94 m/uL (4.30-5.90); RDW 14.4 % (11.5-15.5); WBC 9.4 k/uL (3.8-10.6)
[2023-12-23 10:36] LABS: HGB 8.9 gm/dL (13.0-17.5)
--- NOTE | 2023-12-23 10:51 | XR ---
EXAMINATION TYPE: XR chest 1V DATE OF EXAM: 12/23/2023 HISTORY: Shortness of breath. COMPARISON: 12/22/2023 TECHNIQUE: Single view of the chest is submitted. FINDINGS: Right basilar pleural catheter is again noted to be in place. Increasing air within the right-sided p leural collection compatible with hydropneumothorax and empyema. Pleural parenchymal opacity right daniella ng base and increased density left medial lung base remain unchanged. Tracheostomy tube is in place. There is no evidence for focal infiltrate. The heart is stable. Hilar and mediastinal structures are within normal limits. Degenerative changes are seen of the dorsal spine. IMPRESSION: 1. Right basilar pleural catheter is again noted to be in place. Increasing air within the right-josé ed pleural collection compatible with hydropneumothorax and empyema. Pleural parenchymal opacity righ t lung base and increased density left medial lung base remain unchanged.
[2023-12-23 10:58] LABS: African American GFR (CKD) >90 (>60 ml/min/1.73 sqM); Anion Gap -1 mmol/L; Blood Urea Nitrogen 11 mg/dL (9-20); Calcium 7.9 mg/dL (8.4-10.2); Carbon Dioxide 34 mmol/L (22-30); Chloride 109 mmol/L (98-107); Glucose 96 mg/dL (74-99); Magnesium 2.1 mg/dL (1.6-2.3); Non-African American GFR(CKD) >90 (>60 ml/min/1.73 sqM); Potassium 4.1 mmol/L (3.5-5.1); Sodium 142 mmol/L (137-145)
[2023-12-23 11:39] LABS: Glucose,Whole Blood 115 mg/dL (70-110)
--- NOTE | 2023-12-23 13:20 | P.PN ---
Subjective Progress Note Date: 12/23/23 Patient is a 58-year-old white male with past medical history significant for known laryngeal cancer status post tracheostomy, PEG tube insertion, chronic ongoing tobacco dependence, hypothyroidism, Graves' disease, diverticulosis. Patient's laryngeal cancer was previously treated with chemoradiation. No current treatment. Patient recently had a PET scan done September, which revealed persistent uptake in the posterior lateral right cord level compatible with neoplasm. There was a right lower lobe pulmonary nodule measuring 1.2 cm with SUV value of 5.2, suspicious for either primary lung cancer versus metastasis of his laryngeal cancer. He had previously declined biopsy in the past, however, the patient had a recent hospital admission 12/09/2023 through 12/17/2023 for possible postobstructive pneumonia. His CT of the chest during that admission showed lobular heterogenous mass with internal cystic and necrotic components centered in the right middle lobe. Favored to represent interval progression of the patient's known malignant disease. He did have a bronchoscopy with BAL on 12/09/2023. Microbiology has remained negative. Biopsies taking were nondiagnostic for malignancy. Patient ended up going home on hospice care. While at home, he had episodes of hemoptysis and was very short of breath. He ended up calling 911. He has changed his decision to proceed with hospice. In fact, he wants to be full code. He is currently in the emergency room, room 1. He is sitting up in the stretcher, in no acute distress, he is currently on room air. He denies any fevers. Denies any chest pain. Denies trauma. Reports hemoptysis, unable to quantify how much. There is a trach collar lying in his lap set at 35%, however, he does not wish to wear this. Follow-up chest CT this admission shows interval development of a large right hydropneumothorax. There was also consolidative changes around the right pulmonary hilum thought to represent atelectasis with areas of cavitation in the area of the the previously described mass. There are retrained secretions predominantly within the right main bronchus, right lower lobe, and right middle lobe large airways. A right-sided chest tube was placed by the ER physician. This is currently hooked to continuous suction at 20 cm of H2O. No observable airleak. Approximately 450 mL of serosanguineous drainage in the collection chamber. A follow-up chest x-ray shows the right-sided chest tube in place, with a significant decrease in size of the right sided hydro and pneumothorax and partial reexpansion. CBC this admission, WBC count 16.9, hemoglobin 11, hematocrit 34.6, platelets 475. CMP this admission is unremarkable. Normal saline infusing at 75 mL/h. Patient was empirically started on Zosyn. Patient is hemodynamically stable. I saw this patient in the emergency department. The patient already had a right-sided chest tube in place. Output was noted. The fluid is rather cloudy. I suspect an underlying empyema/complicated pleural infection. I also reviewed the earlier CAT scan of the chest that was done back in November 2023. At that time, the patient had a masslike consolidation involving the right midlung area and this could have represented an area of lung abscess. Note that the bronchoscopy endobronchial lavage came back negative at that time.I repeated the chest x-ray from this afternoon and the right-sided chest tube is in place and there is a residual right-sided pneumothorax and there is persistent complex collection in the right lung compatible with his history of pulmonary infection/empyema. The patient is currently on a broad-spectrum antibiotic utilizing Zosyn. As far as the blood work, the procalcitonin level is at 0.22. Rest of the blood work was noted. He is clinically and hemodynamically stable with a pulse ox of 91% on room air oxygen. Communicating. He has a tracheostomy tube in place. On today's evaluation of 12/21/2023, the patient is being seen for a follow-up. Awaiting the pleural fluid analysis. Noted output from the chest tube is minimal and the patient has put out minimal amount of output since yesterday. Total amount of output has not been in the order of 500 cc since the patient arrived to the medical floor. Procalcitonin level is at 0.22. The white cell count is currently at 15.2 with a hemoglobin 10.5 and a platelet count of 5-66. The patient remains on Zosyn and vancomycin. Repeat chest x-ray was done today and it showed no significant interval change compared to yesterday. The chest tube is in good location. There is a very tiny right apical pneumothorax measuring approximately 6 mm in size. There is also pleural-parenchymal opacity in the right lung base that remains unchanged and obviously this needs to be further investigated by CAT scan of the chest and this will be ordered in the form of a noncontrast enhanced CAT scan to be done today. The patient is on room air oxygen. The patient has tracheostomy tube in place. The blood cultures are negative. Sputum samples also sent and the results are still pending for now. Pleural fluid analysis also pending. On today's evaluation of 12/22/2023, I am seeing the patient for a follow-up. The patient is currently on a trach collar with 10 L of oxygen with an FiO2 of 40%. He is calm and comfortable and is not having any significant respiratory distress. The pleural fluid analysis shows no microbial growth for now. Nevertheless, the fluid is an exudate with elevated LDH and protein and low sugar very much consistent with a complicated parapneumonic effusion/. I also repeated the CAT scan of the chest on this patient and this was a noncontrast CAT scan of the chest that was completed yesterday and shows some persistence in the right-sided pleural effusion in the posterior right lung base along with multiple air-fluid levels present. The chest tube is present anteriorly. Noted output from the chest tube has been minimal at this point in time. No evidence of any significant pneumothorax. Similar findings were seen on today's chest x- ray. Labs from today are still pending for now. Patient remains on a combination of Zosyn and vancomycin. I discussed the findings with the patient I also discussed the findings with interventional radiology. The plan is to put the pigtail catheter in the right lower lobe complex fluid collection as noted on the CAT scan of the chest. Meanwhile, the patient continues to receive enteral feeding for nutritional support. He is quite debilitated. On today's evaluation of 12/23/2023, the patient is being seen for a follow-up. Doing well, no specific complaints, on a trach collar with FiO2 of 40% 10 L o xygen flow. White cell count is at 9.4 with a hemoglobin of 8.9. BUN 11 creatinine of 0.6 and sodium levels at 142. As mentioned yesterday, the pigtail catheter was inserted into the posterior right chest and approximately 900 cc of purulent material was aspirated. Cultures are still pending for now. Repeat chest x-ray was done today and the chest x-ray is showing pigtail catheter in the right lung base. The patient has a loculated right-sided pneumothorax in the lateral aspect of the right lower chest. The pleural-parenchymal opacity in the right lung base is improved. There is some increased density in the medial aspect of the left lung base. The right upper lobe is essentially clear at this point in time. Right-sided chest tube is also in place. There is no evidence of any air leak. No output from the right-sided chest tube. The sputum culture was positive for a combination of Klebsiella and Burhdolderia and the patient is still on a combination of Zosyn and vancomycin. Awaiting cultures from the pleural fluid. Awake and alert and communicating. Continues to receive enteral feeding for additional support. Case was discussed with cardiothoracic surgery. Infectious disease consultation has also been obtained regarding this ongoing empyema. The patient was kept on the same antibiotic coverage. Objective - Vital Signs Vital signs: Vital Signs Temp 97.5 F L 12/23/23 08:00 Pulse 70 12/23/23 08:00 Resp 18 12/23/23 08:00 BP 88/56 12/23/23 08:00 Pulse Ox 93 L 12/23/23 10:17 FiO2 40 12/23/23 10:17 Intake & Output 12/22/23 12/23/23 12/23/23 18:59 06:59 18:59 Output Total 210 560 Balance -210 -560 Output: Chest Tube Drainage 210 560 Chest Tube Right Mid- 0 0 Axillary Chest Chest Tube Right 210 560 Posterior Chest Other: Voiding Method Urinal Urinal Urinal - Exam GENERAL EXAM: Alert, 58-year-old white male, currently on room air, comfortable in no apparent distress. The patient is tracheostomy tube in place. The patient has a trach collar with 10 L of oxygen and FiO2 of 40%. HEAD: Normocephalic and atraumatic EYES: Normal reaction of pupils, equal size. NOSE: Clear with pink turbinates. THROAT: No erythema or exudates. NECK: No masses, no JVD. Tracheostomy insertion site clean and dry. CHEST: Right-sided chest tub In place and there is no active output. The patient also is a pigtail catheter in the right lung posterior chest area. Output is in the order of 950 cc, cloudy thick material and there is no evidence of any air leak. LUNGS: Equal air entry with scattered crackles and rhonchi, especially worse within the right posterior lung poon. The patient has right-sided chest tube in place. No significant output. No significant air leak. CVS: S1 and S2 normal with no audible murmur, regular rhythm. No extra heart sounds ABDOMEN: No hepatosplenomegaly, active bowel sounds, no guarding or rigidity. PEG tube site clean and dry. SPINE: No scoliosis or deformity SKIN: No rashes CENTRAL NERVOUS SYSTEM: No focal deficits, tone is normal in all 4 extremities. EXTREMITIES: There is no peripheral edema, clubbing, or cyanosis. Peripheral pulses are intact. - Labs CBC & Chem 7: 12/23/23 09:43 12/23/23 09:43 Labs: Abnormal Lab Results - Last 24 Hours (Table) 12/23/23 12/23/23 12/23/23 Range/Units 09:43 09:43 11:37 RBC 2.94 L (4.30-5.90) m/uL Hgb 8.9 L D (13.0-17.5) gm/dL Hct 30.4 L (39.0-53.0) % MCV 103.3 H (80.0-100.0) fL MCHC 29.4 L (31.0-37.0) g/dL Neutrophils # 8.2 H (1.3-7.7) k/uL Lymphocytes # 0.6 L (1.0-4.8) k/uL Chloride 109 H (98-107) mmol/L Carbon Dioxide 34 H (22-30) mmol/L Creatinine 0.63 L (0.66-1.25) mg/dL POC Glucose (mg/dL) 115 H (70-110) mg/dL Calcium 7.9 L (8.4-10.2) mg/dL Microbiology - Last 24 Hours (Table) 12/20/23 18:30 Gram Stain - Final Sputum Sputum Culture - Final Burkholderia cepacia complex Klebsiella pneumoniae 12/19/23 16:52 Blood Culture - Preliminary Blood 12/21/23 08:00 Acid Fast Bacilli Smear - Preliminary Pleural Fluid 12/21/23 08:00 Gram Stain - Preliminary Pleural Fluid 12/20/23 18:30 Nasal Screen MRSA/MSSA - Final Nasal Swab Assessment and Plan Plan: Acute large right-sided hydropneumothorax, status post chest tube insertion. Based on my review of the various CAT scans it is possible that the patient developed an area of empyema/lung abscess and the patient had a masslike consolidation of the right midlung back in November 2023. Cultures at that time obtained via bronchoscopy and bronchial lavage was negative. Subsequently, the patient presents with a large hydropneumothorax and chest tube was inserted and this is most likely consistent with a pleural space infection As the patient has a heterogeneous complex right pleural effusion with pneumothorax and areas of consolidation around the right pulmonary hilum with areas of cavitation. White cell count is mildly elevated at 16.9. Hemodynamically stable. Right-sided chest was been inserted. The fluid analysis shows a complicated parapneumonic effusion. Cultures are still pending. Output from the chest was minimal. Pigtail catheter was also inserted in the posterior right chest area and output has been noted in the order of 900 cc since insertion. Cultures from the fluid is still pending. The chest x-ray shows improvement in the right lower lobe opacity and the patient has a small right-sided hydropneumothorax which is essentially loculated. Klebsiella and Burkholderia in the sputum, currently on Zosyn and vancomycin, ID is on the case Acute hemoptysis, resolved, currently inactive and stable Acute on chronic hypoxemic respiratory failure, secondary to above, currently on 40% trach collar History of laryngeal cancer status/post chemoradiation and tracheostomy, PET scan done September, which revealed persistent uptake in the posterior lateral right cord level compatible with neoplasm. There was a right lower lobe pulmonary nodule measuring 1.2 cm with SUV value of 5.2, suspicious for either primary lung cancer versus metastasis of his laryngeal cancer. He had previously declined biopsy in the past, however, the patient had a recent hospital admission 12/09/2023 through 12/17/2023 for possible postobstructive pneumonia. His CT of the chest during that admission showed lobular heterogenous mass with internal cystic and necrotic components centered in the right middle lobe. Favored to represent interval progression of the patient's known malignant disease. He did have a bronchoscopy and BAL on 12/09/2023. Microbiology has remained negative. History of PEG tube insertion, May 2023 Chronic obstructive pulmonary disease History of hypothyroidism Chronic ongoing tobacco dependence Plan: Pigtail catheter has been inserted Will undergo daily tPA administration through the pigtail catheter to further evacuate any form of loculated pleural fluid on the right. Case was discussed with cardiothoracic surgery. The patient may ultimately require a thoracoscopic right lung washout if no improvement with antibiotics and thrombolytic administration through the pigtail catheter. Will continue obtaining daily chest x-rays. Monitor of the right-sided loculated pneumothorax Removed originally inserted chest tube in place and the tube is not putting out any output at this point. Awaiting pleural fluid cultures Awaiting pleural fluid cytology Blood cultures are negative Right-sided chest tube to be removed today Continue on tracheostomy collar with humidified oxygen Patient was again placed on empiric antibiotics in the form of Zosyn and vancomycin. The procalcitonin level is mildly elevated. Infectious disease on the case Medical oncology were also consulted Patient is hemodynamically stable at this time. Overall prognosis is poor. Patient has changed his mind about hospice care.
[2023-12-23] MEDS ORDERED: VANCOMYCIN 1,250 MG in SODIUM CHLORIDE 0.9% 250 ML IVPB SCH (14:00)
[2023-12-23] MEDS: HYDROmorphone 1 MG/ML 1 ML SYRINGE IVP PRN (16:35)
[2023-12-23] MEDS: DORNASE ALFA 5 MG in SODIUM CHLORIDE 0.9% 50 ML IRRIGATION ONE (17:09)
[2023-12-23] MEDS: ALTEPLASE 10 MG in SODIUM CHLORIDE 0.9% 50 ML IRRIGATION ONE (17:09)
[2023-12-23] MEDS: VANCOMYCIN TROUGH DUE 1 EACH MISC MISCELLANE ONE (17:13)
[2023-12-24 00:11] LABS: Glucose,Whole Blood 98 mg/dL (70-110)
[2023-12-24 05:57] LABS: Glucose,Whole Blood 96 mg/dL (70-110)
--- NOTE | 2023-12-24 06:42 | P.PN ---
Subjective Progress Note Date: 12/23/23 Patient is a 58-year-old male with a past medical history of laryngeal cancer status post chemoradiation in July 2023 last tracheostomy and PEG tube placement, COPD, hypothyroidism, history of Graves' disease and currently everyday smoker presents to ER with worsening shortness of breath and hemopty sis. Patient was recently admitted to the hospital from 12/10/2023 to 12/17/2023 and was treated for postoperative pneumonia and COPD. Patient was discharged under hospice care. Patient states that he has been having copious amounts of secretions from the tracheostomy. Denies any fever. No nausea or vomiting. Patient had recent PET scan in September 2023 which showed persistent uptake in the posterior lateral right vocal cord compatible with neoplasm. Patient previously declined biopsy. Chest x-ray on admission showed increasing lucency throughout the right lung concerning for pneumothorax. Small pleural effusion may also be present. CT chest showed interval development of large right pneumothorax with large pneumothorax and small heterogenous complex right pleural effusion. There is consolidation changes around the right pulmonary hilum thought to represent atelectasis in the area of cavitation possibly secondary to prior mass. Retained secretions predominantly within the right main bronchus, right lower and right middle lobe large airways. Correlate for retained secretions. Co nsider bronchoscopy. Chest tube was placed by ER physician. Repeat chest x-ray showed right-sided c hest tube in place with significant decrease in size of right-sided hydro pneumothorax and partial reexpansion. Laboratory data showed WBC 16.9 hemoglobin 11.0 and platelets 475 Sodium 134 potassium 5.1 chloride 105 bicarb is 22 BUN 19 and creatinine 0.41 and blood sugar 64 albumin 2.6 and procalcitonin level is elevated to 0.22 12/21/2023 Patient is seen in follow-up today continues to report significant shortness of breath and pain in multiple areas including the right chest where his chest tube is. Home medications reviewed and resumed as appropriate and patient is continued on Dilaudid and will resume Thatcher and his fentanyl patch. Follow-up chest x-ray today shows no significant change in pleural parenchymal opacity of the right lung base with slightly improved right apical pneumothorax. CT chest is ordered and pending at this time. Patient is continued on IV antibiotics in the form of Zosyn and vancomycin being added. Patient is afebrile with no reports of chest pain or palpitations. Patient continues on trach collar with a flow rate of 8 and FiO2 is 35%. Tolerating tube feeds thus far and will also add bowel regimen given he is on a number of different narcotics. 12/22/2023 Patient is seen and evaluated in follow-up maintained on trach collar and high flow oxygen with continued right chest tube. There is noted fluid collection on the CT imaging from yesterday and IR has been consulted possible pigtail catheter placement as it appears somewhat loculated. Present right-sided chest tube with minimal output noted per nursing staff. Patient is maintained on antibiotics and will consult infectious disease and appreciate input and recommendations. Cultures all remain pending thus far. Cytology is pending as well. Overall prognosis remains poor and guarded at this time. Patient wishes to remain full code. 12/23/2023 Patient seen and evaluated in follow-up status post pigtail catheter placement and CT surgery has been consulted. Patient to receive alteplase for loculated empyema noted on the right. Patient is continued on breathing inhalational treatments along with high flow oxygen via trach collar. Patient is reporting significant pain and will adjust medications appropriately. Had a lengthy discussion with the patient regarding overall CODE STATUS and patient wishes to remain full code does not currently want hospice. Discussed with daughter over the phone after discussing with patient about overall prognosis and treatment plan moving forward. Daughter feels he would benefit from rehab as all of his comorbidities have become more difficult to handle and she feels he is not safe to return home and manage his care himself. Case management is following and working with the patient. Will have PT/OT therapy evaluate the patient. Inf ectious disease following and patient is maintained on broad spec. 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 Patient may likely require IV antibiotics on discharge. Patient will require a PICC line and no staff available until Wednesday to have a PICC line placed. Patient is currently afebrile and denies chest pain or palpitations. Patient reports continued shortness of breath off with secretions. Patient tolerating tube feedings thus far and will continue on bowel regimen as well as patient is receiving IV narcotics. Review of systems: Constitutional: No reports of fatigue, fever, or chills Cardiovascular: No reports of chest pain or palpitations Respiratory: reports of continued shortness of breath and right chest wall pain near the chest tube site GI: No reports of nausea, vomiting, or diarrhea, reports no bowel movements : No reports of dysuria or retention Neurovascular: reports of generalized weakness All medications have been reviewed PHYSICAL EXAMINATION: Patient is sitting up in the bed, appears slightly less anxious, awake alert and oriented. Thin built, emaciated, ill-appearing, elderly appearing, has tracheostomy currently maintained on oxygen with a trach collar.. HEENT: Normocephalic. Neck is supple. Pupils reactive. Nostrils clear. Oral cavity is moist. Neck reveals no JVD, carotid bruits, or thyromegaly. CHEST EXAMINATION: Trachea is central. Symmetrical expansion. Bibasilar coarse sounds and crackles. Nonlabored breathing.. Chest tube as well as pigtail catheter noted on the right CARDIAC: Normal S1, S2 with no gallops. No murmurs ABDOMEN: Soft. Thin, scaphoid bowel sounds normal. No organomegaly. No abdominal bruits. PEG tube noted Extremities: reveal no edema. No clubbing or cyanosis Neurologically awake, alert, oriented x3. Able to move all extremities. No gross focal neurological deficits.. Diffusely weak Skin: No rash or skin lesions. Psychiatric: Cooperative. Non-suicidal Musculoskeletal: No joint swelling or deformity. Assessment: Acute large right-sided hydropneumothorax status post chest tube placement with decrease in size of the right-sided hydropneumothorax and partial reexpansion. Acute on chronic hypoxemic respiratory failure secondary to above, on trach collar FiO2 is 35% and O2 is 11 L Right-sided empyema, status post pigtail catheter placement Acute hemoptysis on admission History of laryngeal cancer status post chemoradiation in July 2023 and tracheostomy and PEG tube placement. Patient had PET scan done in September 2023 showed persistent uptake in the posterior lateral right cord level compatible with neoplasm. Patient declined biopsy on previous admission last week Recent admission for from 11/19/2023 to 12/17/2023 postobstructive pneumonia and also CT evidence of lobular heterogenous mass and necrotic components in the right middle lobe. Status post bronchoscopy and biopsy. BAL cultures negative and biopsies nondiagnostic for malignancy. Hypothyroidism History of Graves' disease COPD Ongoing nicotine addiction DVT prophylaxis with heparin subcu GI prophylaxis Full code Plan: Patient is on humidified oxygen via trach collar with an FiO2 of 35% and oxygen is 11 L. Weaning as tolerated. Status post right-sided chest tube placement with suction due to hydropneumothorax. Chest x-ray shows some resolution in the pneumothorax on the right and continues with a chest tube at this time. Per nursing staff minimal output noted and IR placed a pigtail catheter placement. Pulmonary following along with oncology and awaiting on pleural fluid cytology CT surgery for alteplase administration loculated empyema on the right. Patient is being continued on IV antibiotics in the form of Zosyn and vancomyc in. Procalcitonin level is 0.22 concerns of possible postobstructive pneumonia. Infectious disease following making adjustments as needed. Culture showing Klebsiella pneumonia as well as Burkholderia Continue with breathing treatments and follow-up culture reports. Patient reports intense pain and breakthrough pain including of the right chest tube wall area and will resume home medications and continue on Dilaudid. Fentanyl patch is being resumed from home as well as as needed Thatcher. Will add bowel regimen and continue with stool softeners. Adjust pain medications as needed. Patient was previously transferred to hospice care but currently would like to be full code. Rest with the patient and his daughter Kirsten in regards to overall treatment plan and prognosis and patient does not want to be on hospice as of yet and would like to consider seeking treatment. Patient with significant weakness as well as significant comorbidities will consult PT/OT and discuss further with case management regarding discharge planning once patient is stabilized. Family feels he is unable to care for himself and would benefit from ECF. Patient may likely require IV antibiotics on discharge given this empyema and extensive pneumonia. No staff available for PICC line's until 12/27/2023. Will await finalized cultures and discuss with other consultations regarding this. Due to multiple complex medical issues, overall prognosis is poor and guarded The impression and plan of care has been dictated by Virginie Urbina, Nurse Practitioner as directed. Dr. Adriel MD I have performed a history and examination and MDM of this patient, discussed the same with the dictator, and agree with the dictator's assessment and plan as written ,documented as a scribe. Based on total visit time, I have performed more than 50% of the visit. Objective - Vital Signs Vital signs: Vital Signs Temp 98.0 F 12/23/23 04:00 Pulse 78 12/23/23 04:00 Resp 18 12/23/23 04:00 BP 99/60 12/23/23 04:00 Pulse Ox 92 L 12/23/23 04:00 FiO2 40 12/23/23 04:00 Intake & Output 12/22/23 12/23/23 12/23/23 18:59 06:59 18:59 Output Total 210 560 Balance -210 -560 Output: Chest Tube Drainage 210 560 Chest Tube Right Mid- 0 0 Axillary Chest Chest Tube Right 210 560 Posterior Chest Other: Voiding Method Urinal Urinal - Labs CBC & Chem 7: 12/23/23 09:43 12/23/23 09:43 Labs: Microbiology - Last 24 Hours (Table) 12/19/23 16:52 Blood Culture - Preliminary Blood 12/21/23 08:00 Acid Fast Bacilli Smear - Preliminary Pleural Fluid 12/21/23 08:00 Gram Stain - Preliminary Pleural Fluid 12/20/23 18:30 Nasal Screen MRSA/MSSA - Final Nasal Swab
[2023-12-24 07:34] LABS: Basophils % (A) 0 %; Eosinophils # (A) 0.1 k/uL (0-0.7); Eosinophils % (A) 1 %; HCT 28.9 % (39.0-53.0); HGB 8.5 gm/dL (13.0-17.5); Hypochromasia Marked; Lymphocytes # (A) 0.5 k/uL (1.0-4.8); Lymphocytes % (A) 5 %; MCH 30.1 pg (25.0-35.0); MCHC 29.3 g/dL (31.0-37.0); MCV 102.6 fL (80.0-100.0); Macrocytosis Slight; Mean Platelet Volume 7.9; Monocytes # (A) 0.3 k/uL (0-1.0); Monocytes % (A) 4 %; Neutrophils # (A) 7.8 k/uL (1.3-7.7); Neutrophils % (A) 89 %; Platelet Count 460 k/uL (150-450); RBC 2.82 m/uL (4.30-5.90); RDW 14.1 % (11.5-15.5); WBC 8.8 k/uL (3.8-10.6)
[2023-12-24 07:40] LABS: African American GFR (CKD) >90 (>60 ml/min/1.73 sqM); Anion Gap -3 mmol/L; Blood Urea Nitrogen 14 mg/dL (9-20); Carbon Dioxide 36 mmol/L (22-30); Chloride 108 mmol/L (98-107); Glucose 92 mg/dL (74-99); Magnesium 2.2 mg/dL (1.6-2.3); Non-African American GFR(CKD) >90 (>60 ml/min/1.73 sqM); Potassium 3.8 mmol/L (3.5-5.1); Sodium 141 mmol/L (137-145)
[2023-12-24] MEDS: ALTEPLASE 10 MG in SODIUM CHLORIDE 0.9% 50 ML IRRIGATION ONE (08:27)
[2023-12-24] MEDS: DORNASE ALFA 5 MG in SODIUM CHLORIDE 0.9% 50 ML IRRIGATION ONE (08:28)
--- NOTE | 2023-12-24 08:48 | P.PN ---
Subjective Progress Note Date: 12/23/23 Principal diagnosis: Reason for follow-up is pneumonia/empyema Patient is a 58-year male with a history of squamous cell carcinoma head and neck s/p trach and PEG recent CT chest with heterogeneous mass right middle lobe s/p bronchoscopy culture negative presenting back to the hospital with worsening shortness of breath with a repeat CT shows large right hydropneumothorax s/p chest tube placement and concerning for empyema. On today's evaluation that is 12/23/2023, the patient continues to be afebrile, the patient is on 10 L trach collar and breathing comfortably, the Pt denies having any chest pain or worsening cough, the patient denies having any abdominal pain no vomiting or any diarrhea. Patient white count is down to 9.4, creatinine 0.63 MRSA nasal screen is negative Objective - Vital Signs Vital signs: Vital Signs Temp 97.5 F L 12/23/23 08:00 Pulse 70 12/23/23 08:00 Resp 18 12/23/23 08:00 BP 88/56 12/23/23 08:00 Pulse Ox 93 L 12/23/23 10:17 FiO2 40 12/23/23 10:17 Intake & Output 12/22/23 12/23/23 12/23/23 18:59 06:59 18:59 Output Total 210 560 Balance -210 -560 Output: Chest Tube Drainage 210 560 Chest Tube Right Mid- 0 0 Axillary Chest Chest Tube Right 210 560 Posterior Chest Other: Voiding Method Urinal Urinal Urinal - Exam GENERAL DESCRIPTION: Middle-age male up in bed in no distress RESPIRATORY SYSTEM: Unlabored breathing , decreased breath sounds at bases HEART: S1 S2 regular rate and rhythm , ABDOMEN: Soft , no tenderness EXTREMITIES: No edema feet - Labs CBC & Chem 7: 12/24/23 06:44 12/24/23 06:44 Labs: Abnormal Lab Results - Last 24 Hours (Table) 12/23/23 12/23/23 12/23/23 Range/Units 09:43 09:43 11:37 RBC 2.94 L (4.30-5.90) m/uL Hgb 8.9 L D (13.0-17.5) gm/dL Hct 30.4 L (39.0-53.0) % MCV 103.3 H (80.0-100.0) fL MCHC 29.4 L (31.0-37.0) g/dL Neutrophils # 8.2 H (1.3-7.7) k/uL Lymphocytes # 0.6 L (1.0-4.8) k/uL Chloride 109 H (98-107) mmol/L Carbon Dioxide 34 H (22-30) mmol/L Creatinine 0.63 L (0.66-1.25) mg/dL POC Glucose (mg/dL) 115 H (70-110) mg/dL Calcium 7.9 L (8.4-10.2) mg/dL Microbiology - Last 24 Hours (Table) 12/19/23 16:52 Blood Culture - Preliminary Blood 12/21/23 08:00 Acid Fast Bacilli Smear - Preliminary Pleural Fluid 12/21/23 08:00 Gram Stain - Preliminary Pleural Fluid 12/20/23 18:30 Nasal Screen MRSA/MSSA - Final Nasal Swab Assessment and Plan (1) Empyema Current Visit: Yes Status: Acute Code(s): J86.9 - PYOTHORAX WITHOUT FISTULA SNOMED Code(s): 445446077 (2) Leukocytosis Current Visit: Yes Status: Acute Code(s): D72.829 - ELEVATED WHITE BLOOD CELL COUNT, UNSPECIFIED SNOMED Code(s): 952894652 (3) Pneumonia Current Visit: Yes Status: Acute Priority: High Code(s): J18.9 - PNEUMONIA, UNSPECIFIED ORGANISM SNOMED Code(s): 327410066 Plan: 1patient presenting to the hospital with increasing shortness of breath and hemoptysis in this patient who did have a CT of the chest with evidence of moderate right effusion with multiple air-fluid level concerning for empyema status post chest tube placement 2-cultures are currently pending however MRSA nasal screen is negative 3-patient to continue with the Zosyn however discontinue vancomycin and monitor clinical course closely Dictation was produced using [employer] dictation software. please excuse any grammatical, word or spelling errors. Time with Patient: Less than 30
[2023-12-24] MEDS: MEROPENEM 1 GM in SODIUM CHLORIDE 0.9% 100 ML IVPB SCH (09:45)
[2023-12-24 11:58] LABS: Glucose,Whole Blood 90 mg/dL (70-110)
--- NOTE | 2023-12-24 14:38 | P.PN ---
Subjective Progress Note Date: 12/24/23 Patient is a 58-year-old white male with past medical history significant for known laryngeal cancer status post tracheostomy, PEG tube insertion, chronic ongoing tobacco dependence, hypothyroidism, Graves' disease, diverticulosis. Patient's laryngeal cancer was previously treated with chemoradiation. No current treatment. Patient recently had a PET scan done September, which revealed persistent uptake in the posterior lateral right cord level compatible with neoplasm. There was a right lower lobe pulmonary nodule measuring 1.2 cm with SUV value of 5.2, suspicious for either primary lung cancer versus metastasis of his laryngeal cancer. He had previously declined biopsy in the past, however, the patient had a recent hospital admission 12/09/2023 through 12/17/2023 for possible postobstructive pneumonia. His CT of the chest during that admission showed lobular heterogenous mass with internal cystic and necrotic components centered in the right middle lobe. Favored to represent interval progression of the patient's known malignant disease. He did have a bronchoscopy with BAL on 12/09/2023. Microbiology has remained negative. Biopsies taking were nondiagnostic for malignancy. Patient ended up going home on hospice care. While at home, he had episodes of hemoptysis and was very short of breath. He ended up calling 911. He has changed his decision to proceed with hospice. In fact, he wants to be full code. He is currently in the emergency room, room 1. He is sitting up in the stretcher, in no acute distress, he is currently on room air. He denies any fevers. Denies any chest pain. Denies trauma. Reports hemoptysis, unable to quantify how much. There is a trach collar lying in his lap set at 35%, however, he does not wish to wear this. Follow-up chest CT this admission shows interval development of a large right hydropneumothorax. There was also consolidative changes around the right pulmonary hilum thought to represent atelectasis with areas of cavitation in the area of the the previously described mass. There are retrained secretions predominantly within the right main bronchus, right lower lobe, and right middle lobe large airways. A right-sided chest tube was placed by the ER physician. This is currently hooked to continuous suction at 20 cm of H2O. No observable airleak. Approximately 450 mL of serosanguineous drainage in the collection chamber. A follow-up chest x-ray shows the right-sided chest tube in place, with a significant decrease in size of the right sided hydro and pneumothorax and partial reexpansion. CBC this admission, WBC count 16.9, hemoglobin 11, hematocrit 34.6, platelets 475. CMP this admission is unremarkable. Normal saline infusing at 75 mL/h. Patient was empirically started on Zosyn. Patient is hemodynamically stable. I saw this patient in the emergency department. The patient already had a right-sided chest tube in place. Output was noted. The fluid is rather cloudy. I suspect an underlying empyema/complicated pleural infection. I also reviewed the earlier CAT scan of the chest that was done back in November 2023. At that time, the patient had a masslike consolidation involving the right midlung area and this could have represented an area of lung abscess. Note that the bronchoscopy endobronchial lavage came back negative at that time.I repeated the chest x-ray from this afternoon and the right-sided chest tube is in place and there is a residual right-sided pneumothorax and there is persistent complex collection in the right lung compatible with his history of pulmonary infection/empyema. The patient is currently on a broad-spectrum antibiotic utilizing Zosyn. As far as the blood work, the procalcitonin level is at 0.22. Rest of the blood work was noted. He is clinically and hemodynamically stable with a pulse ox of 91% on room air oxygen. Communicating. He has a tracheostomy tube in place. On today's evaluation of 12/21/2023, the patient is being seen for a follow-up. Awaiting the pleural fluid analysis. Noted output from the chest tube is minimal and the patient has put out minimal amount of output since yesterday. Total amount of output has not been in the order of 500 cc since the patient arrived to the medical floor. Procalcitonin level is at 0.22. The white cell count is currently at 15.2 with a hemoglobin 10.5 and a platelet count of 5-66. The patient remains on Zosyn and vancomycin. Repeat chest x-ray was done today and it showed no significant interval change compared to yesterday. The chest tube is in good location. There is a very tiny right apical pneumothorax measuring approximately 6 mm in size. There is also pleural-parenchymal opacity in the right lung base that remains unchanged and obviously this needs to be further investigated by CAT scan of the chest and this will be ordered in the form of a noncontrast enhanced CAT scan to be done today. The patient is on room air oxygen. The patient has tracheostomy tube in place. The blood cultures are negative. Sputum samples also sent and the results are still pending for now. Pleural fluid analysis also pending. On today's evaluation of 12/22/2023, I am seeing the patient for a follow-up. The patient is currently on a trach collar with 10 L of oxygen with an FiO2 of 40%. He is calm and comfortable and is not having any significant respiratory distress. The pleural fluid analysis shows no microbial growth for now. Nevertheless, the fluid is an exudate with elevated LDH and protein and low sugar very much consistent with a complicated parapneumonic effusion/. I also repeated the CAT scan of the chest on this patient and this was a noncontrast CAT scan of the chest that was completed yesterday and shows some persistence in the right-sided pleural effusion in the posterior right lung base along with multiple air-fluid levels present. The chest tube is present anteriorly. Noted output from the chest tube has been minimal at this point in time. No evidence of any significant pneumothorax. Similar findings were seen on today's chest x- ray. Labs from today are still pending for now. Patient remains on a combination of Zosyn and vancomycin. I discussed the findings with the patient I also discussed the findings with interventional radiology. The plan is to put the pigtail catheter in the right lower lobe complex fluid collection as noted on the CAT scan of the chest. Meanwhile, the patient continues to receive enteral feeding for nutritional support. He is quite debilitated. On today's evaluation of 12/23/2023, the patient is being seen for a follow-up. Doing well, no specific complaints, on a trach collar with FiO2 of 40% 10 L o xygen flow. White cell count is at 9.4 with a hemoglobin of 8.9. BUN 11 creatinine of 0.6 and sodium levels at 142. As mentioned yesterday, the pigtail catheter was inserted into the posterior right chest and approximately 900 cc of purulent material was aspirated. Cultures are still pending for now. Repeat chest x-ray was done today and the chest x-ray is showing pigtail catheter in the right lung base. The patient has a loculated right-sided pneumothorax in the lateral aspect of the right lower chest. The pleural-parenchymal opacity in the right lung base is improved. There is some increased density in the medial aspect of the left lung base. The right upper lobe is essentially clear at this point in time. Right-sided chest tube is also in place. There is no evidence of any air leak. No output from the right-sided chest tube. The sputum culture was positive for a combination of Klebsiella and Burhdolderia and the patient is still on a combination of Zosyn and vancomycin. Awaiting cultures from the pleural fluid. Awake and alert and communicating. Continues to receive enteral feeding for additional support. Case was discussed with cardiothoracic surgery. Infectious disease consultation has also been obtained regarding this ongoing empyema. The patient was kept on the same antibiotic coverage. On today's evaluation of 12/24/2023, the patient has no specific complaints. The right-sided chest that was notable to the pigtail catheter has been kept in place. Repeat chest x-ray from today showed essentially stable right-sided hydropneumothorax. The right total chest tube catheter is still in place. There is still some parenchymal pulmonary opacity in the right lung base. Nevertheless, the patient is receiving daily therapy administration and since yesterday, the patient has produced another 400 cc of purulent material through the pigtail catheter. 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 Vancomycin has been discontinued. Noted the sputum and the pleural fluid cultures came back positive for the same microorganism. Infectious disease on the case. The patient remains afebrile. WBC count is at 8.8 with a hemoglobin 8.4 and platelet count of 460. BUN is at 14 with a creatinine of 0.8 and a sodium levels at 141. Awake and alert and communicating. Continues to receive enteral feeding for respiratory support. Terms of his oxygenation currently is on a 40% trach collar. No interval worse alirio shortness of breath. Objective - Vital Signs Vital signs: Vital Signs Temp 97.7 F 12/24/23 08:00 Pulse 70 12/24/23 08:00 Resp 18 12/24/23 08:00 BP 91/57 12/24/23 08:00 Pulse Ox 96 12/24/23 08:00 FiO2 40 12/24/23 08:00 Intake & Output 12/23/23 12/24/23 12/24/23 18:59 06:59 18:59 Output Total 350 985 0 Balance -350 -985 0 Weight 60 kg 61.7 kg Output: Chest Tube Drainage 350 360 0 Chest Tube Right Mid- 0 0 Axillary Chest Chest Tube Right 350 360 Posterior Chest Urine 625 Other: Voiding Method Urinal Urinal Urinal # Voids 1 - Exam GENERAL EXAM: Alert, 58-year-old white male, currently on room air, comfortable in no apparent distress. The patient is tracheostomy tube in place. The ks tient has a trach collar with 10 L of oxygen and FiO2 of 40%. HEAD: Normocephalic and atraumatic EYES: Normal reaction of pupils, equal size. NOSE: Clear with pink turbinates. THROAT: No erythema or exudates. NECK: No masses, no JVD. Tracheostomy insertion site clean and dry. CHEST: The patient also is a pigtail catheter in the right lung posterior chest area. Output is in the order of 400 cc, cloudy thick material and there is no evidence of any air leak. LUNGS: Equal air entry with scattered crackles and rhonchi, especially worse within the right posterior lung poon. The patient has right-sided chest tube in place. No significant output. No significant air leak. CVS: S1 and S2 normal with no audible murmur, regular rhythm. No extra heart sounds ABDOMEN: No hepatosplenomegaly, active bowel sounds, no guarding or rigidity. PEG tube site clean and dry. SPINE: No scoliosis or deformity SKIN: No rashes CENTRAL NERVOUS SYSTEM: No focal deficits, tone is normal in all 4 extremities. EXTREMITIES: There is no peripheral edema, clubbing, or cyanosis. Peripheral pulses are intact. - Labs CBC & Chem 7: 12/24/23 06:44 12/24/23 06:44 Labs: Abnormal Lab Results - Last 24 Hours (Table) 12/23/23 12/24/23 12/24/23 Range/Units 11:37 06:44 06:44 RBC 2.82 L (4.30-5.90) m/uL Hgb 8.5 L (13.0-17.5) gm/dL Hct 28.9 L (39.0-53.0) % MCV 102.6 H (80.0-100.0) fL MCHC 29.3 L (31.0-37.0) g/dL Plt Count 460 H (150-450) k/uL Neutrophils # 7.8 H (1.3-7.7) k/uL Lymphocytes # 0.5 L (1.0-4.8) k/uL Chloride 108 H (98-107) mmol/L Carbon Dioxide 36 H (22-30) mmol/L POC Glucose (mg/dL) 115 H (70-110) mg/dL Calcium 8.0 L (8.4-10.2) mg/dL Microbiology - Last 24 Hours (Table) 12/23/23 08:08 Gram Stain - Preliminary Pleural Fluid 12/21/23 08:00 Gram Stain - Final Pleural Fluid Body Fluid Culture - Final Burkholderia cepacia complex 12/21/23 08:00 Anaerobic Culture - Preliminary Pleural Fluid 12/20/23 18:30 Gram Stain - Final Sputum Sputum Culture - Final Burkholderia cepacia complex Klebsiella pneumoniae Assessment and Plan Plan: Acute large right-sided hydropneumothorax, status post chest tube insertion. Based on my review of the various CAT scans it is possible that the patient developed an area of empyema/lung abscess and the patient had a masslike consolidation of the right midlung back in November 2023. Cultures at that time obtained via bronchoscopy and bronchial lavage was negative. Subsequently, the patient presents with a large hydropneumothorax and chest tube was inserted and this is most likely consistent with a pleural space infection As the patient has a heterogeneous complex right pleural effusion with pneumothorax and areas of consolidation around the right pulmonary hilum with areas of cavitation. The patient had initial chest tube insertion that was removed and the patient currently has a PICC line In the posterior right chest. There is ongoing purulent material in the order of 400 cc since yesterday. The patient is growing Burkholderia and the sputum and in the pleural fluid. The antibiotic coverage is currently on with IV meropenem. The patient is also receiving daily tPA administration through the pigtail catheter. Another dose was given today. A total of 2 doses were given already. Klebsiella and Burkholderia in the sputum, currently on IV meropenem. Acute hemoptysis, resolved, currently inactive and stable Acute on chronic hypoxemic respiratory failure, secondary to above, currently on 40% trach collar History of laryngeal cancer status/post chemoradiation and tracheostomy, PET scan done September, which revealed persistent uptake in the posterior latera l right cord level compatible with neoplasm. There was a right lower lobe pulmonary nodule measuring 1.2 cm with SUV value of 5.2, suspicious for either primary lung cancer versus metastasis of his laryngeal cancer. He had previously declined biopsy in the past, however, the patient had a recent h ospital admission 12/09/2023 through 12/17/2023 for possible postobstructive pneumonia. His CT of the chest during that admission showed lobular heterogenous mass with internal cystic and necrotic components centered in the right middle lobe. Favored to represent interval progression of the patient's known malignant disease. He did have a bronchoscopy and BAL on 12/09/2023. Microbiology has remained negative. History of PEG tube insertion, May 2023 Chronic obstructive pulmonary disease History of hypothyroidism Chronic ongoing tobacco dependence Plan: Pigtail catheter will be kept in place and the patient is receiving tPA on a daily basis. Output from the pigtail catheter selective in the order of 400 cc since yesterday. Cultures were noted. Will undergo daily tPA administration through the pigtail catheter to further evacuate any form of loculated pleural fluid on the right. Case was discussed with cardiothoracic surgery. The patient may ultimately require a thoracoscopic right lung washout if no improvement with antibiotics and thrombolytic administration through the pigtail catheter. Will continue obtaining daily chest x-rays. Monitor of the right-sided loculated pneumothorax, the chest x-ray findings are stable on today's evaluation Right-sided chest tube is already been removed Continue IV meropenem Continue on tracheostomy collar with humidified oxygen The procalcitonin level is mildly elevated. Infectious disease on the case Medical oncology were also consulted Patient is hemodynamically stable at this time. Continue enteral feeding for nutritional support The patient is currently full code and does not want any form of comfort care measures
--- NOTE | 2023-12-24 15:17 | P.PN ---
Subjective Progress Note Date: 12/24/23 Principal diagnosis: Reason for follow-up is pneumonia/empyema Patient is a 58-year male with a history of squamous cell carcinoma head and neck s/p trach and PEG recent CT chest with heterogeneous mass right middle lobe s/p bronchoscopy culture negative presenting back to the hospital with worsening shortness of breath with a repeat CT shows large right hydropneumothorax s/p chest tube placement and concerning for empyema. On today's evaluation that is 12/24/2023, Patient is afebrile patient is currently on 10 L trach collar and breathing comfortably, the patient denies any chest pain cough is decreased in intensity, the patient denies any nausea vomiting did not have any abdominal pain and no diarrhea. Patient white count is 8.8, creatinine 0.80 sputum and pleural fluid grew Burkholderia cepacia that is intermediate to ceftazidime sensitive to meropenem Objective - Vital Signs Vital signs: Vital Signs Temp 97.7 F 12/24/23 08:00 Pulse 70 12/24/23 08:00 Resp 18 12/24/23 08:00 BP 91/57 12/24/23 08:00 Pulse Ox 96 12/24/23 08:00 FiO2 40 12/24/23 12:31 Intake & Output 12/23/23 12/24/23 12/24/23 18:59 06:59 18:59 Output Total 350 985 0 Balance -350 -985 0 Weight 60 kg 61.7 kg Output: Chest Tube Drainage 350 360 0 Chest Tube Right Mid- 0 0 Axillary Chest Chest Tube Right 350 360 Posterior Chest Urine 625 Other: Voiding Method Urinal Urinal Urinal # Voids 1 - Exam GENERAL DESCRIPTION: Middle-age male up in bed in no distress RESPIRATORY SYSTEM: Unlabored breathing , decreased breath sounds at bases HEART: S1 S2 regular rate and rhythm , ABDOMEN: Soft , no tenderness EXTREMITIES: No edema feet - Labs CBC & Chem 7: 12/24/23 06:44 12/24/23 06:44 Labs: Abnormal Lab Results - Last 24 Hours (Table) 12/24/23 12/24/23 Range/Units 06:44 06:44 RBC 2.82 L (4.30-5.90) m/uL Hgb 8.5 L (13.0-17.5) gm/dL Hct 28.9 L (39.0-53.0) % MCV 102.6 H (80.0-100.0) fL MCHC 29.3 L (31.0-37.0) g/dL Plt Count 460 H (150-450) k/uL Neutrophils # 7.8 H (1.3-7.7) k/uL Lymphocytes # 0.5 L (1.0-4.8) k/uL Chloride 108 H (98-107) mmol/L Carbon Dioxide 36 H (22-30) mmol/L Calcium 8.0 L (8.4-10.2) mg/dL Microbiology - Last 24 Hours (Table) 12/23/23 08:08 Gram Stain - Preliminary Pleural Fluid 12/21/23 08:00 Gram Stain - Final Pleural Fluid Body Fluid Culture - Final Burkholderia cepacia complex 12/21/23 08:00 Anaerobic Culture - Preliminary Pleural Fluid 12/20/23 18:30 Gram Stain - Final Sputum Sputum Culture - Final Burkholderia cepacia complex Klebsiella pneumoniae Assessment and Plan (1) Empyema Current Visit: Yes Status: Acute Code(s): J86.9 - PYOTHORAX WITHOUT FISTULA SNOMED Code(s): 680096070 (2) Leukocytosis Current Visit: Yes Status: Acute Code(s): D72.829 - ELEVATED WHITE BLOOD CELL COUNT, UNSPECIFIED SNOMED Code(s): 956199597 (3) Pneumonia Current Visit: Yes Status: Acute Priority: High Code(s): J18.9 - PNEUMONIA, UNSPECIFIED ORGANISM SNOMED Code(s): 444540561 Plan: 1patient presenting to the hospital with increasing shortness of breath and hemoptysis in this patient who did have a CT of the chest with evidence of moderate right effusion with multiple air-fluid level concerning for empyema status post chest tube placement 2-the patient sputum as well as sputum culture did grew Burkholderia cepacia that is intermediate to ceftazidime sensitive to meropenem 3-I will discontinue Zosyn and start the patient on meropenem and monitor clinical course closely Dictation was produced using [employer] software. please excuse any grammatical, word or spelling errors. Time with Patient: Less than 30
[2023-12-24] MEDS: bisacodyL 10 MG SUPP RECTAL STA (15:20)
--- NOTE | 2023-12-24 16:10 | XR ---
EXAMINATION TYPE: XR abdomen 1V DATE OF EXAM: 12/24/2023 COMPARISON: NONE HISTORY: Pain TECHNIQUE: Single supine KUB image of the abdomen is obtained FINDINGS: Small bowel demonstrates no evidence for dilatation or air fluid levels. Gas and fecal material is seen in non-distended colon. PEG tube overlies the stomach. [id number] te fecal stasis seen. No convincing evidence for pneumoperitoneum. No unusual calcifications. The lung bases are clear. The osseous structures are intact. IMPRESSION: 1. Overall nonobstructive bowel gas pattern.
[2023-12-24 18:08] LABS: Glucose,Whole Blood 111 mg/dL (70-110)
[2023-12-24] MEDS: IPRATROPIUM-ALBUTEROL 3 ML NEB INHALATION STA (20:46)
[2023-12-24] MEDS ORDERED: ZINC OXIDE PASTE (Z-GUARD) 1 APPLIC TOPICAL PRN (23:24)
[2023-12-24 23:40] LABS: Glucose,Whole Blood 110 mg/dL (70-110)
[2023-12-25 05:58] LABS: Glucose,Whole Blood 95 mg/dL (70-110)
--- NOTE | 2023-12-25 08:28 | P.PN ---
Subjective Progress Note Date: 12/24/23 Patient is a 58-year-old male with a past medical history of laryngeal cancer status post chemoradiation in July 2023 last tracheostomy and PEG tube placement, COPD, hypothyroidism, history of Graves' disease and currently everyday smoker presents to ER with worsening shortness of breath and hemopty sis. Patient was recently admitted to the hospital from 12/10/2023 to 12/17/2023 and was treated for postoperative pneumonia and COPD. Patient was discharged under hospice care. Patient states that he has been having copious amounts of secretions from the tracheostomy. Denies any fever. No nausea or vomiting. Patient had recent PET scan in September 2023 which showed persistent uptake in the posterior lateral right vocal cord compatible with neoplasm. Patient previously declined biopsy. Chest x-ray on admission showed increasing lucency throughout the right lung concerning for pneumothorax. Small pleural effusion may also be present. CT chest showed interval development of large right pneumothorax with large pneumothorax and small heterogenous complex right pleural effusion. There is consolidation changes around the right pulmonary hilum thought to represent atelectasis in the area of cavitation possibly secondary to prior mass. Retained secretions predominantly within the right main bronchus, right lower and right middle lobe large airways. Correlate for retained secretions. Co nsider bronchoscopy. Chest tube was placed by ER physician. Repeat chest x-ray showed right-sided c hest tube in place with significant decrease in size of right-sided hydro pneumothorax and partial reexpansion. Laboratory data showed WBC 16.9 hemoglobin 11.0 and platelets 475 Sodium 134 potassium 5.1 chloride 105 bicarb is 22 BUN 19 and creatinine 0.41 and blood sugar 64 albumin 2.6 and procalcitonin level is elevated to 0.22 12/21/2023 Patient is seen in follow-up today continues to report significant shortness of breath and pain in multiple areas including the right chest where his chest tube is. Home medications reviewed and resumed as appropriate and patient is continued on Dilaudid and will resume Panacea and his fentanyl patch. Follow-up chest x-ray today shows no significant change in pleural parenchymal opacity of the right lung base with slightly improved right apical pneumothorax. CT chest is ordered and pending at this time. Patient is continued on IV antibiotics in the form of Zosyn and vancomycin being added. Patient is afebrile with no reports of chest pain or palpitations. Patient continues on trach collar with a flow rate of 8 and FiO2 is 35%. Tolerating tube feeds thus far and will also add bowel regimen given he is on a number of different narcotics. 12/22/2023 Patient is seen and evaluated in follow-up maintained on trach collar and high flow oxygen with continued right chest tube. There is noted fluid collection on the CT imaging from yesterday and IR has been consulted possible pigtail catheter placement as it appears somewhat loculated. Present right-sided chest tube with minimal output noted per nursing staff. Patient is maintained on antibiotics and will consult infectious disease and appreciate input and recommendations. Cultures all remain pending thus far. Cytology is pending as well. Overall prognosis remains poor and guarded at this time. Patient wishes to remain full code. 12/23/2023 Patient seen and evaluated in follow-up status post pigtail catheter placement and CT surgery has been consulted. Patient to receive alteplase for loculated empyema noted on the right. Patient is continued on breathing inhalational treatments along with high flow oxygen via trach collar. Patient is reporting significant pain and will adjust medications appropriately. Had a lengthy discussion with the patient regarding overall CODE STATUS and patient wishes to remain full code does not currently want hospice. Discussed with daughter over the phone after discussing with patient about overall prognosis and treatment plan moving forward. Daughter feels he would benefit from rehab as all of his comorbidities have become more difficult to handle and she feels he is not safe to return home and manage his care himself. Case management is following and working with the patient. Will have PT/OT therapy evaluate the patient. Inf ectious disease following and patient is maintained on broad spec. 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 Patient may likely require IV antibiotics on discharge. Patient will require a PICC line and no staff available until Wednesday to have a PICC line placed. Patient is currently afebrile and denies chest pain or palpitations. Patient reports continued shortness of breath off with secretions. Patient tolerating tube feedings thus far and will continue on bowel regimen as well as patient is receiving IV narcotics. 12/24/2023 Patient is seen and evaluated in follow-up with multiple medical consultations following. Patient remains on trach collar 30% and reports no significant improvements in dyspnea although reports about the same. Patient continues with pigtail catheter currently receiving alteplase daily and chest x-rays with CT surgery following. Patient continues to have purulent drainage with cultures mentioned above with infectious disease following. Patient is continued on meropenem and vancomycin is discontinued. Patient continues on tube feeds and reports tolerating although feels for and reports not having a bowel movement over the last 5 days. Will obtain abdominal x-ray and continue bowel regimen. Recommend Dulcolax suppository and this was discussed with nursing at bedside. Patient is agreeable. Patient is continued on a number of pain medications which would make me concerned for constipation. Minimal bowel sounds noted. Patient denies abdominal pain but does report feeling full. Per nursing staff as well patient's insurance information and paperwork has been faxed with daughter at the bedside regarding continuation of [employer] insurance through his employer. Case management is following. Patient may require IV antibiotics on discharge and continued nursing care at an [facility]. Encouraged to increase activity as tolerated. Review of systems: Constitutional: No reports of fatigue, fever, or chills Cardiovascular: No reports of chest pain or palpitations Respiratory: reports of continued shortness of breath and right chest wall pain near the chest tube site GI: No reports of nausea, vomiting, or diarrhea, reports no bowel movements and has been 5 days, no abdominal pain : No reports of dysuria or retention Neurovascular: reports of generalized weakness All medications have been reviewed PHYSICAL EXAMINATION: Patient is sitting up in the bed, appears slightly less anxious, awake alert and oriented. Thin built, emaciated, ill-appearing, elderly appearing, has tracheostomy currently maintained on oxygen with a trach collar 30%.. HEENT: Normocephalic. Neck is supple. Pupils reactive. Nostrils clear. Oral cavity is moist. Neck reveals no JVD, carotid bruits, or thyromegaly. CHEST EXAMINATION: Trachea is central. Symmetrical expansion. Bibasilar coarse sounds and crackles. Nonlabored breathing.. Chest tube as well as pigtail catheter noted on the right, purulent drainage noted CARDIAC: Normal S1, S2 with no gallops. No murmurs ABDOMEN: Soft. Thin, scaphoid bowel sounds hypoactive. No organomegaly. No abdominal bruits. PEG tube noted Extremities: reveal no edema. No clubbing or cyanosis Neurologically awake, alert, oriented x3. Able to move all extremities. No gross focal neurological deficits.. Diffusely weak Skin: No rash or skin lesions. Psychiatric: Cooperative. Non-suicidal Musculoskeletal: No joint swelling or deformity. Assessment: Acute large right-sided hydropneumothorax status post chest tube placement with decrease in size of the right-sided hydropneumothorax and partial reexpansion. Acute on chronic hypoxemic respiratory failure secondary to above, on trach collar FiO2 is 35% and O2 is 11 L Right-sided empyema, status post pigtail catheter placement, receiving daily alteplase administration through chest tube, CT surgery following Acute hemoptysis on admission, resolved History of laryngeal cancer status post chemoradiation in July 2023 and tracheostomy and PEG tube placement. Patient had PET scan done in September 2023 showed persistent uptake in the posterior lateral right cord level compatible with neoplasm. Patient declined biopsy on previous admission recently Recent admission for from 11/19/2023 to 12/17/2023 postobstructive pneumonia and also CT evidence of lobular heterogenous mass and necrotic components in the right middle lobe. Status post bronchoscopy and biopsy. BAL cultures negative and biopsies nondiagnostic for malignancy. Hypothyroidism History of Graves' disease COPD Ongoing nicotine addiction DVT prophylaxis with heparin subcu GI prophylaxis Full code Plan: Patient is on humidified oxygen via trach collar with an FiO2 of 30% and oxygen is 11 L. Weaning as tolerated. Status post right-sided chest tube placement with suction due to hydropneumothorax. Chest x-ray shows some stable pneumothorax on the right and continues with a chest tube at this time. Per nursing staff minimal output noted and IR placed a pigtail catheter placement. Pulmonary following along with oncology and awaiting on pleural fluid cytology. Initial chest tube has been removed CT surgery following and continuing with daily alteplase administration loculated empyema on the right. Patient is being continued on IV antibiotics in the form of cefepime with infectious disease following. Procalcitonin level is 0.22 concerns of possible postobstructive pneumonia. Culture showing Klebsiella pneumonia as well as Burkholderia Continue with breathing treatments and follow-up culture reports. Patient reports intense pain and breakthrough pain including of the right chest tube wall area and will resume home medications and continue on Dilaudid. Fentanyl patch is being resumed from home as well as as needed Panacea. Will add bowel regimen and continue with stool softeners. Adjust pain medications as needed. Patient has not had a bowel movement in 5 days and will add Dulcolax suppository and obtain abdominal x-ray Patient was previously transferred to hospice care but currently would like to be full code. with Discussed with the patient and his daughter Kirsten in reg ards to overall treatment plan and prognosis and patient does not want to be on hospice as of yet and would like to continue seeking treatment. Patient with significant weakness as well as significant comorbidities will consult PT/OT and discuss further with case management regarding discharge plann ing once patient is stabilized. Family feels he is unable to care for himself and would benefit from ECF. Patient may likely require IV antibiotics on discharge given this empyema and extensive pneumonia. No staff available for PICC line's until 12/27/2023. Will await finalized cultures and discuss with other consultations regarding this. Due to multiple complex medical issues, overall prognosis is poor and guarded The impression and plan of care has been dictated by Virginie Urbina, Nurse Practitioner as directed. Dr. Adriel MD I have performed a history and examination and MDM of this patient, discussed the same with the dictator, and agree with the dictator's assessment and plan as written ,documented as a scribe. Based on total visit time, I have performed more than 50% of the visit. Objective - Vital Signs Vital signs: Vital Signs Temp 97.6 F 12/23/23 20:00 Pulse 65 12/24/23 04:00 Resp 18 12/24/23 04:00 BP 91/61 12/24/23 04:00 Pulse Ox 94 L 12/24/23 04:00 FiO2 40 12/24/23 04:00 Intake & Output 12/23/23 12/24/23 12/24/23 18:59 06:59 18:59 Output Total 350 985 Balance -350 -985 Weight 60 kg 61.7 kg Output: Chest Tube Drainage 350 360 Chest Tube Right Mid- 0 Axillary Chest Chest Tube Right 350 360 Posterior Chest Urine 625 Other: Voiding Method Urinal Urinal # Voids 1 - Labs CBC & Chem 7: 12/24/23 06:44 12/24/23 06:44 Labs: Abnormal Lab Results - Last 24 Hours (Table) 12/23/23 12/23/23 12/23/23 Range/Units 09:43 09:43 11:37 RBC 2.94 L (4.30-5.90) m/uL Hgb 8.9 L D (13.0-17.5) gm/dL Hct 30.4 L (39.0-53.0) % MCV 103.3 H (80.0-100.0) fL MCHC 29.4 L (31.0-37.0) g/dL Plt Count (150-450) k/uL Neutrophils # 8.2 H (1.3-7.7) k/uL Lymphocytes # 0.6 L (1.0-4.8) k/uL Chloride 109 H (98-107) mmol/L Carbon Dioxide 34 H (22-30) mmol/L Creatinine 0.63 L (0.66-1.25) mg/dL POC Glucose (mg/dL) 115 H (70-110) mg/dL Calcium 7.9 L (8.4-10.2) mg/dL 12/24/23 12/24/23 Range/Units 06:44 06:44 RBC 2.82 L (4.30-5.90) m/uL Hgb 8.5 L (13.0-17.5) gm/dL Hct 28.9 L (39.0-53.0) % MCV 102.6 H (80.0-100.0) fL MCHC 29.3 L (31.0-37.0) g/dL Plt Count 460 H (150-450) k/uL Neutrophils # 7.8 H (1.3-7.7) k/uL Lymphocytes # 0.5 L (1.0-4.8) k/uL Chloride 108 H (98-107) mmol/L Carbon Dioxide 36 H (22-30) mmol/L Creatinine (0.66-1.25) mg/dL POC Glucose (mg/dL) (70-110) mg/dL Calcium 8.0 L (8.4-10.2) mg/dL Microbiology - Last 24 Hours (Table) 12/23/23 08:08 Gram Stain - Preliminary Pleural Fluid 12/21/23 08:00 Gram Stain - Final Pleural Fluid Body Fluid Culture - Final Burkholderia cepacia complex 12/21/23 08:00 Anaerobic Culture - Preliminary Pleural Fluid 12/20/23 18:30 Gram Stain - Final Sputum Sputum Culture - Final Burkholderia cepacia complex Klebsiella pneumoniae
[2023-12-25] MEDS: DORNASE ALFA 5 MG in SODIUM CHLORIDE 0.9% 50 ML IRRIGATION ONE (08:50)
[2023-12-25] MEDS: ALTEPLASE 10 MG in SODIUM CHLORIDE 0.9% 50 ML IRRIGATION ONE (08:50)
--- NOTE | 2023-12-25 11:16 | XR ---
EXAM: XR chest 1V portable CLINICAL INDICATION:Male, 58 years old with history of effusion; [facility] COMPARISON: 12/23/2023 and before TECHNIQUE: Chest single view. FINDINGS: Lines/tubes/devices: Tracheostomy cannula again in place. Right basilar pigtail pleural catheter term inates over the medial right lung base, appears advanced or changed in position from prior. Cardiomediastinum: CM silhouette is grossly unchanged. Right cardiac margin is obscured. Vasculature: No increased pulmonary vasculature. Lungs/pleura: Similar amount of air within the right-sided pleural collection compatible with hydropneumothorax and empyema. Pleural parenchymal opacity right lung base and increased density left medial lung base rem ain unchanged. Bones/soft tissues: No acute osseous finding. Degenerative changes of the thoracic spine. Regional soft tissues demonstra te small amount of gas in the right lower chest wall adjacent to the chest tube. IMPRESSION: 1. Right basilar pigtail pleural catheter terminates over the medial right lung base. Small amount o f gas in the chest wall adjacent to the tube. 2. Similar amount of air within the right-sided pleural collection compatible with hydropneumothorax and empyema. 3. Stable pleural/parenchymal opacity in the right lung base, and increased density in the medial le ft lung base.
[2023-12-25 11:20] LABS: Glucose,Whole Blood 87 mg/dL (70-110)
--- NOTE | 2023-12-25 14:47 | P.PN ---
Subjective Progress Note Date: 12/25/23 Patient is a 58-year-old white male with past medical history significant for known laryngeal cancer status post tracheostomy, PEG tube insertion, chronic ongoing tobacco dependence, hypothyroidism, Graves' disease, diverticulosis. Patient's laryngeal cancer was previously treated with chemoradiation. No current treatment. Patient recently had a PET scan done September, which revealed persistent uptake in the posterior lateral right cord level compatible with neoplasm. There was a right lower lobe pulmonary nodule measuring 1.2 cm with SUV value of 5.2, suspicious for either primary lung cancer versus metastasis of his laryngeal cancer. He had previously declined biopsy in the past, however, the patient had a recent hospital admission 12/09/2023 through 12/17/2023 for possible postobstructive pneumonia. His CT of the chest during that admission showed lobular heterogenous mass with internal cystic and necrotic components centered in the right middle lobe. Favored to represent interval progression of the patient's known malignant disease. He did have a bronchoscopy with BAL on 12/09/2023. Microbiology has remained negative. Biopsies taking were nondiagnostic for malignancy. Patient ended up going home on hospice care. While at home, he had episodes of hemoptysis and was very short of breath. He ended up calling 911. He has changed his decision to proceed with hospice. In fact, he wants to be full code. He is currently in the emergency room, room 1. He is sitting up in the stretcher, in no acute distress, he is currently on room air. He denies any fevers. Denies any chest pain. Denies trauma. Reports hemoptysis, unable to quantify how much. There is a trach collar lying in his lap set at 35%, however, he does not wish to wear this. Follow-up chest CT this admission shows interval development of a large right hydropneumothorax. There was also consolidative changes around the right pulmonary hilum thought to represent atelectasis with areas of cavitation in the area of the the previously described mass. There are retrained secretions predominantly within the right main bronchus, right lower lobe, and right middle lobe large airways. A right-sided chest tube was placed by the ER physician. This is currently hooked to continuous suction at 20 cm of H2O. No observable airleak. Approximately 450 mL of serosanguineous drainage in the collection chamber. A follow-up chest x-ray shows the right-sided chest tube in place, with a significant decrease in size of the right sided hydro and pneumothorax and partial reexpansion. CBC this admission, WBC count 16.9, hemoglobin 11, hematocrit 34.6, platelets 475. CMP this admission is unremarkable. Normal saline infusing at 75 mL/h. Patient was empirically started on Zosyn. Patient is hemodynamically stable. I saw this patient in the emergency department. The patient already had a right-sided chest tube in place. Output was noted. The fluid is rather cloudy. I suspect an underlying empyema/complicated pleural infection. I also reviewed the earlier CAT scan of the chest that was done back in November 2023. At that time, the patient had a masslike consolidation involving the right midlung area and this could have represented an area of lung abscess. Note that the bronchoscopy endobronchial lavage came back negative at that time.I repeated the chest x-ray from this afternoon and the right-sided chest tube is in place and there is a residual right-sided pneumothorax and there is persistent complex collection in the right lung compatible with his history of pulmonary infection/empyema. The patient is currently on a broad-spectrum antibiotic utilizing Zosyn. As far as the blood work, the procalcitonin level is at 0.22. Rest of the blood work was noted. He is clinically and hemodynamically stable with a pulse ox of 91% on room air oxygen. Communicating. He has a tracheostomy tube in place. On today's evaluation of 12/21/2023, the patient is being seen for a follow-up. Awaiting the pleural fluid analysis. Noted output from the chest tube is minimal and the patient has put out minimal amount of output since yesterday. Total amount of output has not been in the order of 500 cc since the patient arrived to the medical floor. Procalcitonin level is at 0.22. The white cell count is currently at 15.2 with a hemoglobin 10.5 and a platelet count of 5-66. The patient remains on Zosyn and vancomycin. Repeat chest x-ray was done today and it showed no significant interval change compared to yesterday. The chest tube is in good location. There is a very tiny right apical pneumothorax measuring approximately 6 mm in size. There is also pleural-parenchymal opacity in the right lung base that remains unchanged and obviously this needs to be further investigated by CAT scan of the chest and this will be ordered in the form of a noncontrast enhanced CAT scan to be done today. The patient is on room air oxygen. The patient has tracheostomy tube in place. The blood cultures are negative. Sputum samples also sent and the results are still pending for now. Pleural fluid analysis also pending. On today's evaluation of 12/22/2023, I am seeing the patient for a follow-up. The patient is currently on a trach collar with 10 L of oxygen with an FiO2 of 40%. He is calm and comfortable and is not having any significant respiratory distress. The pleural fluid analysis shows no microbial growth for now. Nevertheless, the fluid is an exudate with elevated LDH and protein and low sugar very much consistent with a complicated parapneumonic effusion/. I also repeated the CAT scan of the chest on this patient and this was a noncontrast CAT scan of the chest that was completed yesterday and shows some persistence in the right-sided pleural effusion in the posterior right lung base along with multiple air-fluid levels present. The chest tube is present anteriorly. Noted output from the chest tube has been minimal at this point in time. No evidence of any significant pneumothorax. Similar findings were seen on today's chest x- ray. Labs from today are still pending for now. Patient remains on a combination of Zosyn and vancomycin. I discussed the findings with the patient I also discussed the findings with interventional radiology. The plan is to put the pigtail catheter in the right lower lobe complex fluid collection as noted on the CAT scan of the chest. Meanwhile, the patient continues to receive enteral feeding for nutritional support. He is quite debilitated. On today's evaluation of 12/23/2023, the patient is being seen for a follow-up. Doing well, no specific complaints, on a trach collar with FiO2 of 40% 10 L o xygen flow. White cell count is at 9.4 with a hemoglobin of 8.9. BUN 11 creatinine of 0.6 and sodium levels at 142. As mentioned yesterday, the pigtail catheter was inserted into the posterior right chest and approximately 900 cc of purulent material was aspirated. Cultures are still pending for now. Repeat chest x-ray was done today and the chest x-ray is showing pigtail catheter in the right lung base. The patient has a loculated right-sided pneumothorax in the lateral aspect of the right lower chest. The pleural-parenchymal opacity in the right lung base is improved. There is some increased density in the medial aspect of the left lung base. The right upper lobe is essentially clear at this point in time. Right-sided chest tube is also in place. There is no evidence of any air leak. No output from the right-sided chest tube. The sputum culture was positive for a combination of Klebsiella and Burhdolderia and the patient is still on a combination of Zosyn and vancomycin. Awaiting cultures from the pleural fluid. Awake and alert and communicating. Continues to receive enteral feeding for additional support. Case was discussed with cardiothoracic surgery. Infectious disease consultation has also been obtained regarding this ongoing empyema. The patient was kept on the same antibiotic coverage. On today's evaluation of 12/24/2023, the patient has no specific complaints. The right-sided chest that was notable to the pigtail catheter has been kept in place. Repeat chest x-ray from today showed essentially stable right-sided hydropneumothorax. The right total chest tube catheter is still in place. There is still some parenchymal pulmonary opacity in the right lung base. Nevertheless, the patient is receiving daily therapy administration and since yesterday, the patient has produced another 400 cc of purulent material through the pigtail catheter. 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 Vancomycin has been discontinued. Noted the sputum and the pleural fluid cultures came back positive for the same microorganism. Infectious disease on the case. The patient remains afebrile. WBC count is at 8.8 with a hemoglobin 8.4 and platelet count of 460. BUN is at 14 with a creatinine of 0.8 and a sodium levels at 141. Awake and alert and communicating. Continues to receive enteral feeding for respiratory support. Terms of his oxygenation currently is on a 40% trach collar. No interval worse alirio shortness of breath. On today's evaluation of 12/25/2023, I am seeing the patient for a follow-up. Since yesterday, the patient has another additional 500 cc through the chest tube. The patient remains on 40% trach collar. No interval worsening shortness of breath. Respiratory status remained stable. Pigtail catheter is in place. Catheter installation of tPA was done today. Based on today's chest x-ray, the findings are essentially similar with an area of consolidation in the right p osterior lung base with a stable right-sided hydropneumothorax. There is stable pleural-parenchymal opacity in the right lung base. The pigtail catheter is in good location. The patient continues to be on IV meropenem. At the same time, the patient experienced some GI upset. X-ray of the abdomen was done that showed nonspecific findings. Abdomen is nondistended. Tube feeds were placed on hold for yesterday and this will be restarted at a lower rate. Objective - Vital Signs Vital signs: Vital Signs Temp 97 F L 12/25/23 08:51 Pulse 96 12/25/23 08:51 Resp 20 12/25/23 08:51 BP 97/61 12/25/23 08:51 Pulse Ox 96 12/25/23 08:51 FiO2 40 12/25/23 08:13 Intake & Output 12/24/23 12/25/23 12/25/23 18:59 06:59 18:59 Intake Total 120 Output Total 360 160 28 Balance -360 -40 -28 Intake: Oral 120 Output: Chest Tube Drainage 360 160 28 Chest Tube Right Mid- 0 Axillary Chest Chest Tube Right 360 160 28 Posterior Chest Other: Voiding Method Urinal Urinal Toilet Urinal # Voids 1 # Bowel Movements 1 - Exam GENERAL EXAM: Alert, 58-year-old white male, currently on room air, comfortable in no apparent distress. The patient is tracheostomy tube in place. The patient has a trach collar with 10 L of oxygen and FiO2 of 40%. HEAD: Normocephalic and atraumatic EYES: Normal reaction of pupils, equal size. NOSE: Clear with pink turbinates. THROAT: No erythema or exudates. NECK: No masses, no JVD. Tracheostomy insertion site clean and dry. CHEST: The patient also is a pigtail catheter in the right lung posterior chest area. Output is in the order of 500 cc, cloudy thick material and there is no evidence of any air leak. LUNGS: Equal air entry with scattered crackles and rhonchi, especially worse within the right posterior lung poon. The patient has right-sided chest tube in place. No significant output. No significant air leak. CVS: S1 and S2 normal with no audible murmur, regular rhythm. No extra heart sounds ABDOMEN: No hepatosplenomegaly, active bowel sounds, no guarding or rigidity. PEG tube site clean and dry. SPINE: No scoliosis or deformity SKIN: No rashes CENTRAL NERVOUS SYSTEM: No focal deficits, tone is normal in all 4 extremities. EXTREMITIES: There is no peripheral edema, clubbing, or cyanosis. Peripheral pulses are intact. - Labs CBC & Chem 7: 12/24/23 06:44 12/24/23 06:44 Labs: Abnormal Lab Results - Last 24 Hours (Table) 12/24/23 Range/Units 18:06 POC Glucose (mg/dL) 111 H (70-110) mg/dL Microbiology - Last 24 Hours (Table) 12/19/23 16:52 Blood Culture - Final Blood 12/23/23 08:08 Gram Stain - Preliminary Pleural Fluid Assessment and Plan Plan: Acute large right-sided hydropneumothorax, status post chest tube insertion. Based on my review of the various CAT scans it is possible that the patient developed an area of empyema/lung abscess and the patient had a masslike consolidation of the right midlung back in November 2023. Cultures at that time obtained via bronchoscopy and bronchial lavage was negative. Subsequently, the patient presents with a large hydropneumothorax and chest tube was inserted and this is most likely consistent with a pleural space infection As the patient has a heterogeneous complex right pleural effusion with pneumothorax and areas of consolidation around the right pulmonary hilum with areas of cavitation. The patient had initial chest tube insertion that was removed and the patient currently has a PICC line In the posterior right chest. There is ongoing purulent material in the order of 400 cc since yesterday. The patient is growing Burkholderia and the sputum and in the pleural fluid. The antibiotic coverage is currently on with IV meropenem. The patient is also receiving daily tPA administration through the pigtail catheter. Another dose was given today. A total of 3 doses were given already. The repeat chest x-ray shows stable pleural-parenchymal opacity in the right lung base and the PICC line catheter in place and the output from the pigtail remains active. Klebsiella and Burkholderia in the sputum, currently on IV meropenem. Acute hemoptysis, resolved, currently inactive and stable Acute on chronic hypoxemic respiratory failure, secondary to above, currently on 40% trach collar History of laryngeal cancer status/post chemoradiation and tracheostomy, PET scan done September, which revealed persistent uptake in the posterior lateral right cord level compatible with neoplasm. There was a right lower lobe pulmonary nodule measuring 1.2 cm with SUV value of 5.2, suspicious for either primary lung cancer versus metastasis of his laryngeal cancer. He had previously declined biopsy in the past, however, the patient had a recent hospital admission 12/09/2023 through 12/17/2023 for possible postobstructive pneumonia. His CT of the chest during that admission showed lobular heter ogenous mass with internal cystic and necrotic components centered in the right middle lobe. Favored to represent interval progression of the patient's known malignant disease. He did have a bronchoscopy and BAL on 12/09/2023. Microbiology has remained negative. History of PEG tube insertion, May 2023 Chronic obstructive pulmonary disease History of hypothyroidism Chronic ongoing tobacco dependence Plan: Pigtail catheter will be kept in place and the patient is receiving tPA on a daily basis. Output from the pigtail catheter selective in the order of 500 cc since yesterday. Cultures were noted. Will undergo daily tPA administration through the pigtail catheter to further evacuate any form of loculated pleural fluid on the right. Case was discussed with cardiothoracic surgery. The patient may ultimately require a thoracoscopic right lung washout if no improvement with antibiotics and thrombolytic administration through the pigtail catheter. Will continue obtaining daily chest x-rays. Monitor of the right-sided loculated pneumothorax, the chest x-ray findings are stable on today's evaluation Right-sided chest tube is already been removed Continue IV meropenem Continue on tracheostomy collar with humidified oxygen The procalcitonin level is mildly elevated. Infectious disease on the case Medical oncology were also consulted Patient is hemodynamically stable at this time. Continue enteral feeding for nutritional support The patient will be started on enteral feeding for nutritional support at a lower rate as the patient has some difficulties with GI upset. X-ray of the abdomen is showing nonspecific findings. It is consistent with nonspecific bowel gas pattern. Obtain follow-up CAT scan in the morning and decide if the patient would benefit from any surgical thoracoscopic lavage of the right hemithorax. Case has been discussed with the cardiothoracic surgeon. The patient is currently full code and does not want any form of comfort care measures
[2023-12-25 16:29] LABS: Glucose,Whole Blood 83 mg/dL (70-110)
[2023-12-26 00:02] LABS: Glucose,Whole Blood 85 mg/dL (70-110)
[2023-12-26 05:51] LABS: Glucose,Whole Blood 70 mg/dL (70-110)
[2023-12-26] MEDS: DEXTROSE 50% SYRINGE 50 ML IVP STA (06:11)
[2023-12-26 06:29] LABS: Glucose,Whole Blood 136 mg/dL (70-110)
[2023-12-26] MEDS: ALTEPLASE 10 MG in SODIUM CHLORIDE 0.9% 50 ML IRRIGATION ONE (08:28)
[2023-12-26] MEDS: DORNASE ALFA 5 MG in SODIUM CHLORIDE 0.9% 50 ML IRRIGATION ONE (08:29)
[2023-12-26 10:42] LABS: Basophils % (A) 0 %; Eosinophils # (A) 0.1 k/uL (0-0.7); Eosinophils % (A) 1 %; Hypochromasia Marked; Lymphocytes # (A) 0.4 k/uL (1.0-4.8); Lymphocytes % (A) 5 %; MCH 30.7 pg (25.0-35.0); MCHC 29.5 g/dL (31.0-37.0); MCV 103.9 fL (80.0-100.0); Macrocytosis Moderate; Mean Platelet Volume 8.3; Monocytes # (A) 0.3 k/uL (0-1.0); Monocytes % (A) 3 %; Neutrophils # (A) 8.4 k/uL (1.3-7.7); Neutrophils % (A) 90 %; Platelet Count 450 k/uL (150-450); RDW 14.5 % (11.5-15.5); WBC 9.3 k/uL (3.8-10.6)
[2023-12-26 10:47] LABS: African American GFR (CKD) >90 (>60 ml/min/1.73 sqM); Anion Gap 3 mmol/L; Blood Urea Nitrogen 14 mg/dL (9-20); Carbon Dioxide 33 mmol/L (22-30); Chloride 106 mmol/L (98-107); Glucose 78 mg/dL (74-99); Magnesium 2.3 mg/dL (1.6-2.3); Non-African American GFR(CKD) >90 (>60 ml/min/1.73 sqM); Potassium 3.6 mmol/L (3.5-5.1); Sodium 142 mmol/L (137-145)
[2023-12-26 11:16] LABS: Glucose,Whole Blood 76 mg/dL (70-110)
--- NOTE | 2023-12-26 11:30 | CT ---
EXAMINATION TYPE: CT chest wo con DATE OF EXAM: 12/26/2023 COMPARISON: 12/21/2023 HISTORY: Follow up on Empyema CT DLP: 239.[address] of the chest was performed with lung and mediastinal window settings submitted. The la ck of contrast limits evaluation of the vascular, mediastinal and parenchymal structures including th e upper abdomen. LUNGS: Tracheostomy tube is in place. There is loculated hydropneumothorax. Right-sided pleural lee ter is in place. Complex pleural collection seen previously is much improved with previously noted mu ltiple air-fluid levels essentially resolving hydropneumothorax persisting. Hydropneumothorax measure s approximately 17.5 cm AP dimension by 3.6 cm transverse dimension. Moderate right apical and to a l luma extent left apical paraseptal emphysema. Persistent right perihilar cavitary lesion. Lesion minnie ears smaller in size and currently measures 2.7 cm greatest dimension versus 4.3 cm. MEDIASTINUM/BRUNA: Thoracic aorta is of normal caliber with limited evaluation given lack of contrast . The heart is not enlarged. No evidence for mediastinal mass. No lymph nodes greater than 1cm. UPPER ABDOMEN: No significant abnormality is seen. OTHER: No significant other abnormality. IMPRESSION: 1. Complex pleural collection seen previously is much improved with previously noted multiple air-fl uid levels essentially resolving hydropneumothorax persisting. 2.Persistent right perihilar cavitary lesion. Lesion appears smaller in size and currently measures 2 .7 cm greatest dimension versus 4.3 cm.
--- NOTE | 2023-12-26 13:38 | P.PN ---
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 On today's evaluation that is 12/25/2023, patient has been afebrile, patient is breathing comfortably and is currently on 10 L trach collar patient denies having any chest pain cough is decreased in intensity no nausea vomiting abdominal pain and no diarrhea No CBC was done today Objective - Vital Signs Vital signs: Vital Signs Temp 97.4 F L 12/25/23 11:25 Pulse 86 12/25/23 11:25 Resp 19 12/25/23 11:25 BP 90/52 12/25/23 11:25 Pulse Ox 96 12/25/23 11:25 FiO2 40 12/25/23 11:25 Intake & Output 12/24/23 12/25/23 12/25/23 18:59 06:59 18:59 Intake Total 120 Output Total 360 160 28 Balance -360 -40 -28 Intake: Oral 120 Output: Chest Tube Drainage 360 160 28 Chest Tube Right Mid- 0 Axillary Chest Chest Tube Right 360 160 28 Posterior Chest Other: Voiding Method Urinal Urinal Toilet Urinal # Voids 1 # Bowel Movements 1 - Exam GENERAL DESCRIPTION: Middle-age male up in bed in no distress RESPIRATORY SYSTEM: Unlabored breathing , decreased breath sounds at bases HEART: S1 S2 regular rate and rhythm , ABDOMEN: Soft , no tenderness EXTREMITIES: No edema feet - Labs CBC & Chem 7: 12/26/23 08:44 12/26/23 08:44 Labs: Abnormal Lab Results - Last 24 Hours (Table) 12/24/23 Range/Units 18:06 POC Glucose (mg/dL) 111 H (70-110) mg/dL Microbiology - Last 24 Hours (Table) 12/19/23 16:52 Blood Culture - Final Blood Assessment and Plan (1) Empyema Current Visit: Yes Status: Acute Code(s): J86.9 - PYOTHORAX WITHOUT FISTULA SNOMED Code(s): 986027611 (2) Leukocytosis Current Visit: Yes Status: Acute Code(s): D72.829 - ELEVATED WHITE BLOOD CELL COUNT, UNSPECIFIED SNOMED Code(s): 940516618 (3) Pneumonia Current Visit: Yes Status: Acute Priority: High Code(s): J18.9 - PNEUMONIA, UNSPECIFIED ORGANISM SNOMED Code(s): 877106570 Plan: 1patient presenting to the hospital with increasing shortness of breath and hemoptysis in this patient who did have a CT of the chest with evidence of moderate right effusion with multiple air-fluid level concerning for empyema status post chest tube placement 2-the patient sputum as well as sputum culture did grew Burkholderia cepacia that is intermediate to ceftazidime sensitive to meropenem 3-patient to continue with meropenem and monitor clinical course closely, check a CBC with a.m. lab Dictation was produced using [employer] dictation software. please excuse any grammatical, word or spelling errors. Time with Patient: Less than 30
--- NOTE | 2023-12-26 13:39 | P.PN ---
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 On today's evaluation that is 12/26/2023,the patient denies any fever or any chills, patient is breathing comfortably on 10 L trach collar, the patient denies chest pain shortness of breath and no cough is decreased in intensity, patient denies abdominal pain, no nausea vomiting or diarrhea. Feeling better Patient white count on 9.3, creatinine 0.59 blood culture negative Objective - Vital Signs Vital signs: Vital Signs Temp 97.5 F L 12/26/23 09:09 Pulse 77 12/26/23 11:41 Resp 20 12/26/23 11:41 BP 85/55 12/26/23 11:41 Pulse Ox 89 L 12/26/23 11:41 FiO2 40 12/26/23 09:09 Intake & Output 12/25/23 12/26/23 12/26/23 18:59 06:59 18:59 Output Total 264 400 0 Balance -264 -400 0 Output: Chest Tube Drainage 264 100 0 Chest Tube Right 264 100 0 Posterior Chest Urine 300 Other: Voiding Method Toilet Toilet Toilet Urinal Urinal Urinal # Voids 1 - Exam GENERAL DESCRIPTION: Middle-age male up in bed in no distress RESPIRATORY SYSTEM: Unlabored breathing , decreased breath sounds at bases HEART: S1 S2 regular rate and rhythm , ABDOMEN: Soft , no tenderness EXTREMITIES: No edema feet - Labs CBC & Chem 7: 12/26/23 08:44 12/26/23 08:44 Labs: Abnormal Lab Results - Last 24 Hours (Table) 12/26/23 12/26/23 12/26/23 Range/Units 06:27 08:44 08:44 RBC 2.60 L (4.30-5.90) m/uL Hgb 8.0 L (13.0-17.5) gm/dL Hct 27.0 L (39.0-53.0) % MCV 103.9 H (80.0-100.0) fL MCHC 29.5 L (31.0-37.0) g/dL Neutrophils # 8.4 H (1.3-7.7) k/uL Lymphocytes # 0.4 L (1.0-4.8) k/uL Carbon Dioxide 33 H (22-30) mmol/L Creatinine 0.59 L (0.66-1.25) mg/dL POC Glucose (mg/dL) 136 H (70-110) mg/dL Calcium 8.0 L (8.4-10.2) mg/dL Microbiology - Last 24 Hours (Table) 12/23/23 08:08 Gram Stain - Preliminary Pleural Fluid Body Fluid Culture - Preliminary Gram Neg Bacilli 12/21/23 08:00 Anaerobic Culture - Final Pleural Fluid Assessment and Plan (1) Empyema Current Visit: Yes Status: Acute Code(s): J86.9 - PYOTHORAX WITHOUT FISTULA SNOMED Code(s): 505962573 (2) Leukocytosis Current Visit: Yes Status: Acute Code(s): D72.829 - ELEVATED WHITE BLOOD CELL COUNT, UNSPECIFIED SNOMED Code(s): 953896697 (3) Pneumonia Current Visit: Yes Status: Acute Priority: High Code(s): J18.9 - PNEUMONIA, UNSPECIFIED ORGANISM SNOMED Code(s): 353533903 Plan: 1patient presenting to the hospital with increasing shortness of breath and hemoptysis in this patient who did have a CT of the chest with evidence of moderate right effusion with multiple air-fluid level concerning for empyema status post chest tube placement 2-the patient sputum as well as sputum culture 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 please excuse any grammatical, word or spelling errors. Time with Patient: Less than 30
--- NOTE | 2023-12-26 14:19 | P.PN ---
Subjective Progress Note Date: 12/26/23 Patient is a 58-year-old white male with past medical history significant for known laryngeal cancer status post tracheostomy, PEG tube insertion, chronic ongoing tobacco dependence, hypothyroidism, Graves' disease, diverticulosis. Patient's laryngeal cancer was previously treated with chemoradiation. No current treatment. Patient recently had a PET scan done September, which revealed persistent uptake in the posterior lateral right cord level compatible with neoplasm. There was a right lower lobe pulmonary nodule measuring 1.2 cm with SUV value of 5.2, suspicious for either primary lung cancer versus metastasis of his laryngeal cancer. He had previously declined biopsy in the past, however, the patient had a recent hospital admission 12/09/2023 through 12/17/2023 for possible postobstructive pneumonia. His CT of the chest during that admission showed lobular heterogenous mass with internal cystic and necrotic components centered in the right middle lobe. Favored to represent interval progression of the patient's known malignant disease. He did have a bronchoscopy with BAL on 12/09/2023. Microbiology has remained negative. Biopsies taking were nondiagnostic for malignancy. Patient ended up going home on hospice care. While at home, he had episodes of hemoptysis and was very short of breath. He ended up calling 911. He has changed his decision to proceed with hospice. In fact, he wants to be full code. He is currently in the emergency room, room 1. He is sitting up in the stretcher, in no acute distress, he is currently on room air. He denies any fevers. Denies any chest pain. Denies trauma. Reports hemoptysis, unable to quantify how much. There is a trach collar lying in his lap set at 35%, however, he does not wish to wear this. Follow-up chest CT this admission shows interval development of a large right hydropneumothorax. There was also consolidative changes around the right pulmonary hilum thought to represent atelectasis with areas of cavitation in the area of the the previously described mass. There are retrained secretions predominantly within the right main bronchus, right lower lobe, and right middle lobe large airways. A right-sided chest tube was placed by the ER physician. This is currently hooked to continuous suction at 20 cm of H2O. No observable airleak. Approximately 450 mL of serosanguineous drainage in the collection chamber. A follow-up chest x-ray shows the right-sided chest tube in place, with a significant decrease in size of the right sided hydro and pneumothorax and partial reexpansion. CBC this admission, WBC count 16.9, hemoglobin 11, hematocrit 34.6, platelets 475. CMP this admission is unremarkable. Normal saline infusing at 75 mL/h. Patient was empirically started on Zosyn. Patient is hemodynamically stable. I saw this patient in the emergency department. The patient already had a right-sided chest tube in place. Output was noted. The fluid is rather cloudy. I suspect an underlying empyema/complicated pleural infection. I also reviewed the earlier CAT scan of the chest that was done back in November 2023. At that time, the patient had a masslike consolidation involving the right midlung area and this could have represented an area of lung abscess. Note that the bronchoscopy endobronchial lavage came back negative at that time.I repeated the chest x-ray from this afternoon and the right-sided chest tube is in place and there is a residual right-sided pneumothorax and there is persistent complex collection in the right lung compatible with his history of pulmonary infection/empyema. The patient is currently on a broad-spectrum antibiotic utilizing Zosyn. As far as the blood work, the procalcitonin level is at 0.22. Rest of the blood work was noted. He is clinically and hemodynamically stable with a pulse ox of 91% on room air oxygen. Communicating. He has a tracheostomy tube in place. On today's evaluation of 12/21/2023, the patient is being seen for a follow-up. Awaiting the pleural fluid analysis. Noted output from the chest tube is minimal and the patient has put out minimal amount of output since yesterday. Total amount of output has not been in the order of 500 cc since the patient arrived to the medical floor. Procalcitonin level is at 0.22. The white cell count is currently at 15.2 with a hemoglobin 10.5 and a platelet count of 5-66. The patient remains on Zosyn and vancomycin. Repeat chest x-ray was done today and it showed no significant interval change compared to yesterday. The chest tube is in good location. There is a very tiny right apical pneumothorax measuring approximately 6 mm in size. There is also pleural-parenchymal opacity in the right lung base that remains unchanged and obviously this needs to be further investigated by CAT scan of the chest and this will be ordered in the form of a noncontrast enhanced CAT scan to be done today. The patient is on room air oxygen. The patient has tracheostomy tube in place. The blood cultures are negative. Sputum samples also sent and the results are still pending for now. Pleural fluid analysis also pending. On today's evaluation of 12/22/2023, I am seeing the patient for a follow-up. The patient is currently on a trach collar with 10 L of oxygen with an FiO2 of 40%. He is calm and comfortable and is not having any significant respiratory distress. The pleural fluid analysis shows no microbial growth for now. Nevertheless, the fluid is an exudate with elevated LDH and protein and low sugar very much consistent with a complicated parapneumonic effusion/. I also repeated the CAT scan of the chest on this patient and this was a noncontrast CAT scan of the chest that was completed yesterday and shows some persistence in the right-sided pleural effusion in the posterior right lung base along with multiple air-fluid levels present. The chest tube is present anteriorly. Noted output from the chest tube has been minimal at this point in time. No evidence of any significant pneumothorax. Similar findings were seen on today's chest x- ray. Labs from today are still pending for now. Patient remains on a combination of Zosyn and vancomycin. I discussed the findings with the patient I also discussed the findings with interventional radiology. The plan is to put the pigtail catheter in the right lower lobe complex fluid collection as noted on the CAT scan of the chest. Meanwhile, the patient continues to receive enteral feeding for nutritional support. He is quite debilitated. On today's evaluation of 12/23/2023, the patient is being seen for a follow-up. Doing well, no specific complaints, on a trach collar with FiO2 of 40% 10 L o xygen flow. White cell count is at 9.4 with a hemoglobin of 8.9. BUN 11 creatinine of 0.6 and sodium levels at 142. As mentioned yesterday, the pigtail catheter was inserted into the posterior right chest and approximately 900 cc of purulent material was aspirated. Cultures are still pending for now. Repeat chest x-ray was done today and the chest x-ray is showing pigtail catheter in the right lung base. The patient has a loculated right-sided pneumothorax in the lateral aspect of the right lower chest. The pleural-parenchymal opacity in the right lung base is improved. There is some increased density in the medial aspect of the left lung base. The right upper lobe is essentially clear at this point in time. Right-sided chest tube is also in place. There is no evidence of any air leak. No output from the right-sided chest tube. The sputum culture was positive for a combination of Klebsiella and Burhdolderia and the patient is still on a combination of Zosyn and vancomycin. Awaiting cultures from the pleural fluid. Awake and alert and communicating. Continues to receive enteral feeding for additional support. Case was discussed with cardiothoracic surgery. Infectious disease consultation has also been obtained regarding this ongoing empyema. The patient was kept on the same antibiotic coverage. On today's evaluation of 12/24/2023, the patient has no specific complaints. The right-sided chest that was notable to the pigtail catheter has been kept in place. Repeat chest x-ray from today showed essentially stable right-sided hydropneumothorax. The right total chest tube catheter is still in place. There is still some parenchymal pulmonary opacity in the right lung base. Nevertheless, the patient is receiving daily therapy administration and since yesterday, the patient has produced another 400 cc of purulent material through the pigtail catheter. 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 Vancomycin has been discontinued. Noted the sputum and the pleural fluid cultures came back positive for the same microorganism. Infectious disease on the case. The patient remains afebrile. WBC count is at 8.8 with a hemoglobin 8.4 and platelet count of 460. BUN is at 14 with a creatinine of 0.8 and a sodium levels at 141. Awake and alert and communicating. Continues to receive enteral feeding for respiratory support. Terms of his oxygenation currently is on a 40% trach collar. No interval worse alirio shortness of breath. On today's evaluation of 12/25/2023, I am seeing the patient for a follow-up. Since yesterday, the patient has another additional 500 cc through the chest tube. The patient remains on 40% trach collar. No interval worsening shortness of breath. Respiratory status remained stable. Pigtail catheter is in place. Catheter installation of tPA was done today. Based on today's chest x-ray, the findings are essentially similar with an area of consolidation in the right p osterior lung base with a stable right-sided hydropneumothorax. There is stable pleural-parenchymal opacity in the right lung base. The pigtail catheter is in good location. The patient continues to be on IV meropenem. At the same time, the patient experienced some GI upset. X-ray of the abdomen was done that showed nonspecific findings. Abdomen is nondistended. Tube feeds were placed on hold for yesterday and this will be restarted at a lower rate. On today's evaluation of 12/26/2023, the patient is doing well. Remains on a 40% trach collar. No respiratory distress. No fever or chills. Remains on IV meropenem. Output from the pigtail catheter has been noted and the patient has produced approximately 400 cc of output over the past 24 hours. A follow-up CAT scan of the chest was done without contrast this morning and a CAT scan of the chest showed a significant improvement in the previously described multi air- fluid level and there is improvement in the right-sided hydropneumothorax although there is some residual pneumothorax along the right lateral posterior chest. There is also some perihilar cavitary lesions. Lesions have decreased in size and currently measuring up to 2.7 cm in dimension. Tracheostomy is still in place. The pigtail catheter is in a good location. The right-sided hydropneumothorax is dropped from 17 to 3 cm meter in size. There is emphyse matous changes with paraseptal emphysema in the upper lobes bilaterally.The white cell count is at 9.3 with a hemoglobin of 8 and a platelet count of 450. BUN is at 40 with a creatinine of 0.9 and sodium levels at 142. Objective - Vital Signs Vital signs: Vital Signs Temp 97.5 F L 12/26/23 09:09 Pulse 75 12/26/23 09:09 Resp 19 12/26/23 09:09 BP 94/60 12/26/23 09:09 Pulse Ox 96 12/26/23 09:09 FiO2 40 12/26/23 09:09 Intake & Output 12/25/23 12/26/23 12/26/23 18:59 06:59 18:59 Output Total 264 400 0 Balance -264 -400 0 Output: Chest Tube Drainage 264 100 0 Chest Tube Right 264 100 0 Posterior Chest Urine 300 Other: Voiding Method Toilet Toilet Toilet Urinal Urinal Urinal # Voids 1 - Exam GENERAL EXAM: Alert, 58-year-old white male, currently on room air, comfortable in no apparent distress. The patient is tracheostomy tube in place. The patient has a trach collar with 10 L of oxygen and FiO2 of 40%. HEAD: Normocephalic and atraumatic EYES: Normal reaction of pupils, equal size. NOSE: Clear with pink turbinates. THROAT: No erythema or exudates. NECK: No masses, no JVD. Tracheostomy insertion site clean and dry. CHEST: The patient also is a pigtail catheter in the right lung posterior chest area. Output is in the order of 500 cc, cloudy thick material and there is no evidence of any air leak. LUNGS: Equal air entry with scattered crackles and rhonchi, especially worse within the right posterior lung poon. The patient has right-sided chest tube in place. No significant output. No significant air leak. CVS: S1 and S2 normal with no audible murmur, regular rhythm. No extra heart sounds ABDOMEN: No hepatosplenomegaly, active bowel sounds, no guarding or rigidity. PEG tube site clean and dry. SPINE: No scoliosis or deformity SKIN: No rashes CENTRAL NERVOUS SYSTEM: No focal deficits, tone is normal in all 4 extremities. EXTREMITIES: There is no peripheral edema, clubbing, or cyanosis. Peripheral pulses are intact. - Labs CBC & Chem 7: 12/26/23 08:44 12/26/23 08:44 Labs: Abnormal Lab Results - Last 24 Hours (Table) 12/26/23 Range/Units 06:27 POC Glucose (mg/dL) 136 H (70-110) mg/dL Microbiology - Last 24 Hours (Table) 12/23/23 08:08 Gram Stain - Preliminary Pleural Fluid Body Fluid Culture - Preliminary Gram Neg Bacilli 12/21/23 08:00 Anaerobic Culture - Final Pleural Fluid Assessment and Plan Plan: Acute large right-sided hydropneumothorax, status post chest tube insertion. Based on my review of the various CAT scans it is possible that the patient developed an area of empyema/lung abscess and the patient had a masslike consolidation of the right midlung back in November 2023. Cultures at that time obtained via bronchoscopy and bronchial lavage was negative. Subsequently, the patient presents with a large hydropneumothorax and chest tube was inserted and this is most likely consistent with a pleural space infection As the patient has a heterogeneous complex right pleural effusion with pneumothorax and areas of consolidation around the right pulmonary hilum with areas of cavitation. The patient had initial chest tube insertion that was removed and the patient currently has a PICC line In the posterior right chest. There is ongoing purulent material post daily tPA administration and the patient's output over the past 24 hours has been in the order of 360 cc. A follow-up CAT scan of the chest was done this morning and it shows decrease in the size of the right-sided hydropneumothorax from 17 cm down to 3.6 cm in size. There is persistent fluid in the right lung base and persistent opacification in the right lower lobe area. Nevertheless, the abnormalities have improved considerably. The pleural lining is quite thickened. The patient may end up having a trapped lung without any surgical interventions. Klebsiella and Burkholderia in the sputum, currently on IV meropenem. Acute hemoptysis, resolved, currently inactive and stable Acute on chronic hypoxemic respiratory failure, secondary to above, currently on 40% trach collar History of laryngeal cancer status/post chemoradiation and tracheostomy, PET scan done September, which revealed persistent uptake in the posterior lateral right cord level compatible with neoplasm. There was a right lower lobe pulmonary nodule measuring 1.2 cm with SUV value of 5.2, suspicious for either primary lung cancer versus metastasis of his laryngeal cancer. He had previously declined biopsy in the past, however, the patient had a recent hospital admission 12/09/2023 through 12/17/2023 for possible postobstructive pneumonia. His CT of the chest during that admission showed lobular heterogenous mass with internal cystic and necrotic components centered in the right middle lobe. Favored to represent interval progression of the patient's known malignant disease. He did have a bronchoscopy and BAL on 12/09/2023. Microbiology has remained negative. History of PEG tube insertion, May 2023 Chronic obstructive pulmonary disease History of hypothyroidism Chronic ongoing tobacco dependence Plan: Pigtail catheter will be kept in place and the patient is receiving tPA on a daily basis. Output from the pigtail catheter selective in the order of 360 cc since yesterday. Cultures were noted. Will undergo daily tPA administration through the pigtail catheter to further evacuate any form of loculated pleural fluid on the right. CAT scan of the chest shows improvement in size of the right-sided hydropneumothorax and there is drop in the size from 17 down to 3.6 cm in size. Case was discussed with cardiothoracic surgery. The patient may ultimately require a thoracoscopic right lung washout if no improvement with antibiotics and thrombolytic administration through the pigtail catheter. The pleural lining is quite thickened and the patient may end up having a loculated right-s ided hydropneumothorax without any surgical intervention. Monitor of the right-sided loculated pneumothorax, keep the pigtail catheter in place to monitor the output. Continue IV meropenem Continue on tracheostomy collar with humidified oxygen The procalcitonin level is mildly elevated. Infectious disease on the case Medical oncology were also consulted Patient is hemodynamically stable at this time. Continue enteral feeding for nutritional support If final decision regarding surgical intervention will be done over the next 24 to 48 hours depending on the patient's overall clinical response. Will continue daily chest x-rays.
[2023-12-26 16:21] LABS: Glucose,Whole Blood 86 mg/dL (70-110)
[2023-12-27 00:01] LABS: Glucose,Whole Blood 182 mg/dL (70-110)
[2023-12-27 06:19] LABS: Glucose,Whole Blood 95 mg/dL (70-110)
[2023-12-27] MEDS: PANTOPRAZOLE 40 MG TABLET PO PRN (06:27)
[2023-12-27 09:37] LABS: African American GFR (CKD) >90 (>60 ml/min/1.73 sqM); Anion Gap 2 mmol/L; Blood Urea Nitrogen 14 mg/dL (9-20); Calcium 7.9 mg/dL (8.4-10.2); Carbon Dioxide 35 mmol/L (22-30); Chloride 106 mmol/L (98-107); Glucose 91 mg/dL (74-99); Non-African American GFR(CKD) >90 (>60 ml/min/1.73 sqM); Potassium 3.5 mmol/L (3.5-5.1); Sodium 143 mmol/L (137-145)
--- NOTE | 2023-12-27 09:43 | P.PN ---
Subjective Progress Note Date: 12/25/23 Patient is a 58-year-old male with a past medical history of laryngeal cancer status post chemoradiation in July 2023 last tracheostomy and PEG tube placement, COPD, hypothyroidism, history of Graves' disease and currently everyday smoker presents to ER with worsening shortness of breath and hemoptysi s. Patient was recently admitted to the hospital from 12/10/2023 to 12/17/2023 and was treated for postoperative pneumonia and COPD. Patient was discharged under hospice care. Patient states that he has been having copious amounts of secretions from the tracheostomy. Denies any fever. No nausea or vomiting. Patient had recent PET scan in September 2023 which showed persistent uptake in the posterior lateral right vocal cord compatible with neoplasm. Patient previously declined biopsy. Chest x-ray on admission showed increasing lucency throughout the right lung concerning for pneumothorax. Small pleural effusion may also be present. CT chest showed interval development of large right pneumothorax with large pneumothorax and small heterogenous complex right pleural effusion. There is consolidation changes around the right pulmonary hilum thought to represent atelectasis in the area of cavitation possibly secondary to prior mass. Retained secretions predominantly within the right main bronchus, right lower and right middle lobe large airways. Correlate for retained secretions. Cons ider bronchoscopy. Chest tube was placed by ER physician. Repeat chest x-ray showed right-sided chest tube in place with significant decrease in size of right-sided hydro pneumothorax and partial reexpansion. Laboratory data showed WBC 16.9 hemoglobin 11.0 and platelets 475 Sodium 134 potassium 5.1 chloride 105 bicarb is 22 BUN 19 and creatinine 0.41 and blood sugar 64 albumin 2.6 and procalcitonin level is elevated to 0.22 12/21/2023 Patient is seen in follow-up today continues to report significant shortness of breath and pain in multiple areas including the right chest where his chest tube is. Home medications reviewed and resumed as appropriate and patient is continued on Dilaudid and will resume Dennis and his fentanyl patch. Follow-up chest x-ray today shows no significant change in pleural parenchymal opacity of the right lung base with slightly improved right apical pneumothorax. CT chest is ordered and pending at this time. Patient is continued on IV antibiotics in the form of Zosyn and vancomycin being added. Patient is afebrile with no reports of chest pain or palpitations. Patient continues on trach collar with a flow rate of 8 and FiO2 is 35%. Tolerating tube feeds thus far and will also add bowel regimen given he is on a number of different narcotics. 12/22/2023 Patient is seen and evaluated in follow-up maintained on trach collar and high flow oxygen with continued right chest tube. There is noted fluid collection on the CT imaging from yesterday and IR has been consulted possible pigtail catheter placement as it appears somewhat loculated. Present right-sided chest tube with minimal output noted per nursing staff. Patient is maintained on antibiotics and will consult infectious disease and appreciate input and recommendations. Cultures all remain pending thus far. Cytology is pending as well. Overall prognosis remains poor and guarded at this time. Patient wishes to remain full code. 12/23/2023 Patient seen and evaluated in follow-up status post pigtail catheter placement and CT surgery has been consulted. Patient to receive alteplase for loculated empyema noted on the right. Patient is continued on breathing inhalational treatments along with high flow oxygen via trach collar. Patient is reporting significant pain and will adjust medications appropriately. Had a lengthy discussion with the patient regarding overall CODE STATUS and patient wishes to remain full code does not currently want hospice. Discussed with daughter over the phone after discussing with patient about overall prognosis and treatment plan moving forward. Daughter feels he would benefit from rehab as all of his comorbidities have become more difficult to handle and she feels he is not safe to return home and manage his care himself. Case management is following and working with the patient. Will have PT/OT therapy evaluate the patient. Infec tious disease following and patient is maintained on broad spec. 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 Patient may likely require IV antibiotics on discharge. Patient will require a PICC line and no staff available until Wednesday to have a PICC line placed. Patient is currently afebrile and denies chest pain or palpitations. Patient reports continued shortness of breath off with secretions. Patient tolerating tube feedings thus far and will continue on bowel regimen as well as patient is receiving IV narcotics. 12/24/2023 Patient is seen and evaluated in follow-up with multiple medical consultations following. Patient remains on trach collar 30% and reports no significant improvements in dyspnea although reports about the same. Patient continues with pigtail catheter currently receiving alteplase daily and chest x-rays with CT surgery following. Patient continues to have purulent drainage with cultures m entioned above with infectious disease following. Patient is continued on meropenem and vancomycin is discontinued. Patient continues on tube feeds and reports tolerating although feels for and reports not having a bowel movement over the last 5 days. Will obtain abdominal x-ray and continue bowel regimen. Recommend Dulcolax suppository and this was discussed with nursing at bedside. Patient is agreeable. Patient is continued on a number of pain medications which would make me concerned for constipation. Minimal bowel sounds noted. Patient denies abdominal pain but does report feeling full. Per nursing staff as well patient's insurance information and paperwork has been faxed with keo roman at the bedside regarding continuation of [employer] insurance through his employer. Case management is following. Patient may require IV antibiotics on discharge and continued nursing care at an [facility]. Encouraged to increase activity as tolerated. 12/25/2023 Patient is sitting on side of bed. Awake alert and oriented 3. Unable to communicate due to trach collar with 40% FiO2. Patient had additional 5 cc through chest tube. No complaints of chest pain. Breathing status improving. Chest x-ray today showed right basilar pigtail pleural catheter terminates over the medial lung base. Small amount of gas in the chest wall adjacent to the tube. Similar amount of air within the right-sided pleural collection compatible with hydropneumothorax and empyema. Stable pleural-parenchymal opa city in the right lung base and increased density in the medial left lung base. Laboratory data showed reviewed. Pulmonary is on board. Review of systems: Constitutional: No reports of fatigue, fever, or chills Cardiovascular: No reports of chest pain or palpitations Respiratory: reports of continued shortness of breath and right chest wall pain near the chest tube site GI: No reports of nausea, vomiting, or diarrhea, reports no bowel movements and has been 5 days, no abdominal pain : No reports of dysuria or retention Neurovascular: reports of generalized weakness All medications have been reviewed PHYSICAL EXAMINATION: Patient is sitting up in the bed, appears slightly less anxious, awake alert and oriented. Thin built, emaciated, ill-appearing, elderly appearing, has tracheos willis currently maintained on oxygen with a trach collar 30%.. HEENT: Normocephalic. Neck is supple. Pupils reactive. Nostrils clear. Oral cavity is moist. Neck reveals no JVD, carotid bruits, or thyromegaly. CHEST EXAMINATION: Trachea is central. Symmetrical expansion. Bibasilar coarse sounds and crackles. Nonlabored breathing.. Chest tube as well as pigtail catheter noted on the right, purulent drainage noted CARDIAC: Normal S1, S2 with no gallops. No murmurs ABDOMEN: Soft. Thin, scaphoid bowel sounds hypoactive. No organomegaly. No abdominal bruits. PEG tube noted Extremities: reveal no edema. No clubbing or cyanosis Neurologically awake, alert, oriented x3. Able to move all extremities. No gross focal neurological deficits.. Diffusely weak Skin: No rash or skin lesions. Psychiatric: Cooperative. Non-suicidal Musculoskeletal: No joint swelling or deformity. Assessment: Acute large right-sided hydropneumothorax status post chest tube placement with decrease in size of the right-sided hydropneumothorax and partial reexpansion. Acute on chronic hypoxemic respiratory failure secondary to above, on trach collar FiO2 is 35% and O2 is 11 L Right-sided empyema, status post pigtail catheter placement, receiving daily alteplase administration through chest tube, CT surgery following Acute hemoptysis on admission, resolved History of laryngeal cancer status post chemoradiation in July 2023 and tracheostomy and PEG tube placement. Patient had PET scan done in September 2023 showed persistent uptake in the posterior lateral right cord level compatible with neoplasm. Patient declined biopsy on previous admission recently Recent admission for from 11/19/2023 to 12/17/2023 postobstructive pneumonia and also CT evidence of lobular heterogenous mass and necrotic components in the right middle lobe. Status post bronchoscopy and biopsy. BAL cultures negative and biopsies nondiagnostic for malignancy. Hypothyroidism History of Graves' disease COPD Ongoing nicotine addiction DVT prophylaxis with heparin subcu GI prophylaxis Full code Plan: Patient is on humidified oxygen via trach collar with an FiO2 of 40%. Weaning as tolerated. Status post right-sided chest tube placement with suction due to hydropneumothorax. Chest x-ray shows some stable pneumothorax on the right and continues with a chest tube at this time. Patient has 500 cc output noted via pigtail catheter.. Pulmonary following along with oncology and awaiting on pleural fluid cytology. Initial chest tube has been removed CT surgery following and continuing with daily alteplase administration loculated empyema on the right. Patient is being continued on IV antibiotics in the form of cefepime with infectious disease following. Procalcitonin level is 0.22 concerns of possible postobstructive pneumonia. Culture showing Klebsiella pneumonia as well as Burkholderia Continue with breathing treatments and follow-up culture reports. Patient reports intense pain and breakthrough pain including of the right chest tube wall area and will resume home medications and continue on Dilaudid. Fentanyl patch is being resumed from home as well as as needed Dennis. Will add bowel regimen and continue with stool softeners. Adjust pain medications as needed. Patient has not had a bowel movement in 5 days and will add Dulcolax suppository and obtain abdominal x-ray Patient was previously transferred to hospice care but currently would like to be full code. with Discussed with the patient and his daughter Kirsten in regards to overall treatment plan and prognosis and patient does not want to be on hospice as of yet and would like to continue seeking treatment. Patient with significant weakness as well as significant comorbidities will consult PT/OT and discuss further with case management regarding discharge planning once patient is stabilized. Family feels he is unable to care for himself and would benefit from ECF. Patient may likely require IV antibiotics on discharge given this empyema and extensive pneumonia. No staff available for PICC line's until 12/27/2023. Will await finalized cultures and discuss with other consultations regarding this. Due to multiple complex medical issues, overall prognosis is poor and guarded Objective - Vital Signs Vital signs: Vital Signs Temp 97.4 F L 12/25/23 11:25 Pulse 86 12/25/23 11:25 Resp 19 12/25/23 11:25 BP 90/52 12/25/23 11:25 Pulse Ox 96 12/25/23 11:25 FiO2 40 12/25/23 11:25 Intake & Output 12/24/23 12/25/23 12/25/23 18:59 06:59 18:59 Intake Total 120 Output Total 360 160 74 Balance -360 -40 -74 Intake: Oral 120 Output: Chest Tube Drainage 360 160 74 Chest Tube Right Mid- 0 Axillary Chest Chest Tube Right 360 160 74 Posterior Chest Other: Voiding Method Urinal Urinal Toilet Urinal # Voids 1 # Bowel Movements 1 - Labs CBC & Chem 7: 12/26/23 08:44 12/27/23 08:47 Labs: Abnormal Lab Results - Last 24 Hours (Table) 12/24/23 Range/Units 18:06 POC Glucose (mg/dL) 111 H (70-110) mg/dL Microbiology - Last 24 Hours (Table) 12/19/23 16:52 Blood Culture - Final Blood
--- NOTE | 2023-12-27 09:46 | P.PN ---
Subjective Progress Note Date: 12/26/23 Patient is a 58-year-old male with a past medical history of laryngeal cancer status post chemoradiation in July 2023 last tracheostomy and PEG tube placement, COPD, hypothyroidism, history of Graves' disease and currently everyday smoker presents to ER with worsening shortness of breath and hemoptysi s. Patient was recently admitted to the hospital from 12/10/2023 to 12/17/2023 and was treated for postoperative pneumonia and COPD. Patient was discharged under hospice care. Patient states that he has been having copious amounts of secretions from the tracheostomy. Denies any fever. No nausea or vomiting. Patient had recent PET scan in September 2023 which showed persistent uptake in the posterior lateral right vocal cord compatible with neoplasm. Patient previously declined biopsy. Chest x-ray on admission showed increasing lucency throughout the right lung concerning for pneumothorax. Small pleural effusion may also be present. CT chest showed interval development of large right pneumothorax with large pneumothorax and small heterogenous complex right pleural effusion. There is consolidation changes around the right pulmonary hilum thought to represent atelectasis in the area of cavitation possibly secondary to prior mass. Retained secretions predominantly within the right main bronchus, right lower and right middle lobe large airways. Correlate for retained secretions. Cons ider bronchoscopy. Chest tube was placed by ER physician. Repeat chest x-ray showed right-sided chest tube in place with significant decrease in size of right-sided hydro pneumothorax and partial reexpansion. Laboratory data showed WBC 16.9 hemoglobin 11.0 and platelets 475 Sodium 134 potassium 5.1 chloride 105 bicarb is 22 BUN 19 and creatinine 0.41 and blood sugar 64 albumin 2.6 and procalcitonin level is elevated to 0.22 12/21/2023 Patient is seen in follow-up today continues to report significant shortness of breath and pain in multiple areas including the right chest where his chest tube is. Home medications reviewed and resumed as appropriate and patient is continued on Dilaudid and will resume [place] and his fentanyl patch. Follow-up chest x-ray today shows no significant change in pleural parenchymal opacity of the right lung base with slightly improved right apical pneumothorax. CT chest is ordered and pending at this time. Patient is continued on IV antibiotics in the form of Zosyn and vancomycin being added. Patient is afebrile with no reports of chest pain or palpitations. Patient continues on trach collar with a flow rate of 8 and FiO2 is 35%. Tolerating tube feeds thus far and will also add bowel regimen given he is on a number of different narcotics. 12/22/2023 Patient is seen and evaluated in follow-up maintained on trach collar and high flow oxygen with continued right chest tube. There is noted fluid collection on the CT imaging from yesterday and IR has been consulted possible pigtail catheter placement as it appears somewhat loculated. Present right-sided chest tube with minimal output noted per nursing staff. Patient is maintained on antibiotics and will consult infectious disease and appreciate input and recommendations. Cultures all remain pending thus far. Cytology is pending as well. Overall prognosis remains poor and guarded at this time. Patient wishes to remain full code. 12/23/2023 Patient seen and evaluated in follow-up status post pigtail catheter placement and CT surgery has been consulted. Patient to receive alteplase for loculated empyema noted on the right. Patient is continued on breathing inhalational treatments along with high flow oxygen via trach collar. Patient is reporting significant pain and will adjust medications appropriately. Had a lengthy discussion with the patient regarding overall CODE STATUS and patient wishes to remain full code does not currently want hospice. Discussed with daughter over the phone after discussing with patient about overall prognosis and treatment plan moving forward. Daughter feels he would benefit from rehab as all of his comorbidities have become more difficult to handle and she feels he is not safe to return home and manage his care himself. Case management is following and working with the patient. Will have PT/OT therapy evaluate the patient. Infec tious disease following and patient is maintained on broad spec. 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 Patient may likely require IV antibiotics on discharge. Patient will require a PICC line and no staff available until Wednesday to have a PICC line placed. Patient is currently afebrile and denies chest pain or palpitations. Patient reports continued shortness of breath off with secretions. Patient tolerating tube feedings thus far and will continue on bowel regimen as well as patient is receiving IV narcotics. 12/24/2023 Patient is seen and evaluated in follow-up with multiple medical consultations following. Patient remains on trach collar 30% and reports no significant improvements in dyspnea although reports about the same. Patient continues with pigtail catheter currently receiving alteplase daily and chest x-rays with CT surgery following. Patient continues to have purulent drainage with cultures m entioned above with infectious disease following. Patient is continued on meropenem and vancomycin is discontinued. Patient continues on tube feeds and reports tolerating although feels for and reports not having a bowel movement over the last 5 days. Will obtain abdominal x-ray and continue bowel regimen. Recommend Dulcolax suppository and this was discussed with nursing at bedside. Patient is agreeable. Patient is continued on a number of pain medications which would make me concerned for constipation. Minimal bowel sounds noted. Patient denies abdominal pain but does report feeling full. Per nursing staff as well patient's insurance information and paperwork has been faxed with keo roman at the bedside regarding continuation of [employer] insurance through his employer. Case management is following. Patient may require IV antibiotics on discharge and continued nursing care at an [facility]. Encouraged to increase activity as tolerated. 12/25/2023 Patient is sitting on side of bed. Awake alert and oriented 3. Unable to communicate due to trach collar with 40% FiO2. Patient had additional 5 cc through chest tube. No complaints of chest pain. Breathing status improving. Chest x-ray today showed right basilar pigtail pleural catheter terminates over the medial lung base. Small amount of gas in the chest wall adjacent to the tube. Similar amount of air within the right-sided pleural collection compatible with hydropneumothorax and empyema. Stable pleural-parenchymal opa city in the right lung base and increased density in the medial left lung base. Laboratory data showed reviewed. Pulmonary is on board. 12/26/2023 Patient is sitting on side of bed. Awake alert and oriented x 3. Trach collar with 40% FiO2. No complaints of chest pain or worsening shortness of breath. Patient is having 400 cc fluid output from the pigtail catheter. Patient is afebrile otherwise. No nausea vomiting. CT chest was done today showed complex pleural collection seen previously is much improved with previously noted multiple air-fluid levels essentially resolving hydropneumothorax persisting. Persistent right perihilar cavitary lesion. Patient appears smaller in size and currently measures 2.7 cm in greatest dimension versus 4.3 cm. Laboratory data showed WBC 9.3 hemoglobin 8.0 and platelets 450 and MCV 103.9, sodium 142 potassium 3.6 chloride 106 bicarb is 33 BUN 14 and creatinine 0.599 and blood sugar is 78 and calcium 8.0. Pulmonary is on board. Patient on antibiotics meropenem. Review of systems: Constitutional: No reports of fatigue, fever, or chills Cardiovascular: No reports of chest pain or palpitations Respiratory: reports of continued shortness of breath and right chest wall pain near the chest tube site GI: No reports of nausea, vomiting, or diarrhea, reports no bowel movements and has been 5 days, no abdominal pain : No reports of dysuria or retention Neurovascular: reports of generalized weakness All medications have been reviewed PHYSICAL EXAMINATION: Patient is sitting up in the bed, appears slightly less anxious, awake alert and oriented. Thin built, emaciated, ill-appearing, elderly appearing, has tracheostomy currently maintained on oxygen with a trach collar 30%.. HEENT: Normocephalic. Neck is supple. Pupils reactive. Nostrils clear. Oral cavity is moist. Neck reveals no JVD, carotid bruits, or thyromegaly. CHEST EXAMINATION: Trachea is central. Symmetrical expansion. Bibasilar coarse sounds and crackles. Nonlabored breathing.. Chest tube as well as pigtail catheter noted on the right, purulent drainage noted CARDIAC: Normal S1, S2 with no gallops. No murmurs ABDOMEN: Soft. Thin, scaphoid bowel sounds hypoactive. No organomegaly. No abdominal bruits. PEG tube noted Extremities: reveal no edema. No clubbing or cyanosis Neurologically awake, alert, oriented x3. Able to move all extremities. No gross focal neurological deficits.. Diffusely weak Skin: No rash or skin lesions. Psychiatric: Cooperative. Non-suicidal Musculoskeletal: No joint swelling or deformity. Assessment: Acute large right-sided hydropneumothorax status post chest tube placement with decrease in size of the right-sided hydropneumothorax and partial reexpansion. Acute on chronic hypoxemic respiratory failure secondary to above, on trach collar FiO2 is 35% and O2 is 11 L Right-sided empyema, status post pigtail catheter placement, receiving daily alteplase administration through chest tube, CT surgery following Acute hemoptysis on admission, resolved History of laryngeal cancer status post chemoradiation in July 2023 and tracheostomy and PEG tube placement. Patient had PET scan done in September 2023 showed persistent uptake in the posterior lateral right cord level compatible with neoplasm. Patient declined biopsy on previous admission recently Recent admission for from 11/19/2023 to 12/17/2023 postobstructive pneumonia and also CT evidence of lobular heterogenous mass and necrotic components in the right middle lobe. Status post bronchoscopy and biopsy. BAL cultures negative and biopsies nondiagnostic for malignancy. Hypothyroidism History of Graves' disease COPD Ongoing nicotine addiction DVT prophylaxis with heparin subcu GI prophylaxis Full code Plan: Patient is on humidified oxygen via trach collar with an FiO2 of 40%. Weaning as tolerated. Status post right-sided chest tube placement with suction due to hydropneumothorax. Chest x-ray shows some stable pneumothorax on the right and continues with a chest tube at this time. Patient has 500 cc output noted via pigtail catheter.. Pulmonary following along with oncology and awaiting on pleural fluid cytology. Initial chest tube has been removed CT surgery following and continuing with daily alteplase administration loculated empyema on the right. Patient is being continued on IV antibiotics in the form of cefepime with infectious disease following. Procalcitonin level is 0.22 concerns of possible postobstructive pneumonia. Culture showing Klebsiella pneumonia as well as Burkholderia Continue with breathing treatments and follow-up culture reports. Patient reports intense pain and breakthrough pain including of the right chest tube wall area and will resume home medications and continue on Dilaudid. Fentanyl patch is being resumed from home as well as as needed [place]. Will add bowel regimen and continue with stool softeners. Adjust pain medications as needed. Patient has not had a bowel movement in 5 days and will add Dulcolax suppository and obtain abdominal x-ray Patient was previously transferred to hospice care but currently would like to be full code. with Discussed with the patient and his daughter Kirsten in regards to overall treatment plan and prognosis and patient does not want to be on hospice as of yet and would like to continue seeking treatment. Patient with significant weakness as well as significant comorbidities will consult PT/OT and discuss further with case management regarding discharge planning once patient is stabilized. Family feels he is unable to care for himself and would benefit from ECF. Patient may likely require IV antibiotics on discharge given this empyema and extensive pneumonia. No staff available for PICC line's until 12/27/2023. Will await finalized cultures and discuss with other consultations regarding this. Due to multiple complex medical issues, overall prognosis is poor and guarded Objective - Vital Signs Vital signs: Vital Signs Temp 97.5 F L 12/26/23 09:09 Pulse 77 12/26/23 11:41 Resp 19 12/26/23 15:43 BP 97/54 12/26/23 15:43 Pulse Ox 96 12/26/23 15:43 FiO2 40 12/26/23 21:40 Intake & Output 12/26/23 12/26/23 12/27/23 06:59 18:59 06:59 Output Total 400 100 Balance -400 -100 Output: Chest Tube Drainage 100 100 Chest Tube Right 100 100 Posterior Chest Urine 300 Other: Voiding Method Toilet Toilet Urinal Urinal # Voids 1 - Labs CBC & Chem 7: 12/26/23 08:44 12/27/23 08:47 Labs: Abnormal Lab Results - Last 24 Hours (Table) 12/26/23 12/26/23 12/26/23 Range/Units 06:27 08:44 08:44 RBC 2.60 L (4.30-5.90) m/uL Hgb 8.0 L (13.0-17.5) gm/dL Hct 27.0 L (39.0-53.0) % MCV 103.9 H (80.0-100.0) fL MCHC 29.5 L (31.0-37.0) g/dL Neutrophils # 8.4 H (1.3-7.7) k/uL Lymphocytes # 0.4 L (1.0-4.8) k/uL Carbon Dioxide 33 H (22-30) mmol/L Creatinine 0.59 L (0.66-1.25) mg/dL POC Glucose (mg/dL) 136 H (70-110) mg/dL Calcium 8.0 L (8.4-10.2) mg/dL Microbiology - Last 24 Hours (Table) 12/23/23 08:08 Gram Stain - Preliminary Pleural Fluid Body Fluid Culture - Preliminary Gram Neg Bacilli 12/21/23 08:00 Anaerobic Culture - Final Pleural Fluid
[2023-12-27 10:23] LABS: Basophils % (A) 0 %; Eosinophils # (A) 0.1 k/uL (0-0.7); Eosinophils % (A) 1 %; HGB 8.7 gm/dL (13.0-17.5); Hypochromasia Marked; Lymphocytes # (A) 0.6 k/uL (1.0-4.8); Lymphocytes % (A) 6 %; MCH 30.8 pg (25.0-35.0); MCHC 30.1 g/dL (31.0-37.0); MCV 102.3 fL (80.0-100.0); Macrocytosis Slight; Mean Platelet Volume 8.5; Monocytes # (A) 0.4 k/uL (0-1.0); Monocytes % (A) 4 %; Neutrophils # (A) 9.2 k/uL (1.3-7.7); Neutrophils % (A) 89 %; Platelet Count 427 k/uL (150-450); RBC 2.83 m/uL (4.30-5.90); RDW 14.4 % (11.5-15.5); WBC 10.3 k/uL (3.8-10.6)
[2023-12-27] MEDS: DORNASE ALFA 5 MG in SODIUM CHLORIDE 0.9% 50 ML IRRIGATION ONE (10:39)
[2023-12-27] MEDS: ALTEPLASE 10 MG in SODIUM CHLORIDE 0.9% 50 ML IRRIGATION ONE (10:39)
[2023-12-27 11:58] LABS: Glucose,Whole Blood 101 mg/dL (70-110)
--- NOTE | 2023-12-27 12:25 | P.PN ---
Subjective Progress Note Date: 12/27/23 Principal diagnosis: Reason for follow-up is pneumonia/empyema Patient is a 58-year male with a history of squamous cell carcinoma head and neck s/p trach and PEG recent CT chest with heterogeneous mass right middle lobe s/p bronchoscopy culture negative presenting back to the hospital with worsening shortness of breath with a repeat CT shows large right hydropneumothorax s/p chest tube placement and concerning for empyema. On today's evaluation that is 12/27/2023,the patient remains to be afebrile, patient is on 10 L trach collar supplemental oxygen however denies any shortness of breath no chest pain and cough has decreased in intensity.Patient denies having any nausea or vomiting, no abdominal pain and no diarrhea has been reported. Patient white count is 10.3, creatinine 0.66 Objective - Vital Signs Vital signs: Vital Signs Temp 97.4 F L 12/27/23 09:08 Pulse 102 H 12/27/23 11:59 Resp 16 12/27/23 11:59 BP 105/67 12/27/23 11:59 Pulse Ox 90 L 12/27/23 11:59 FiO2 40 12/27/23 07:44 Intake & Output 12/26/23 12/27/23 12/27/23 18:59 06:59 18:59 Output Total 100 250 240 Balance -100 -250 -240 Output: Chest Tube Drainage 100 50 240 Chest Tube Right 100 50 240 Posterior Chest Urine 200 Other: Voiding Method Toilet Toilet Urinal Urinal # Voids 1 - Exam GENERAL DESCRIPTION: Middle-age male up in bed in no distress RESPIRATORY SYSTEM: Unlabored breathing , decreased breath sounds at bases HEART: S1 S2 regular rate and rhythm , ABDOMEN: Soft , no tenderness EXTREMITIES: No edema feet - Labs CBC & Chem 7: 12/27/23 08:47 12/27/23 08:47 Labs: Abnormal Lab Results - Last 24 Hours (Table) 12/27/23 12/27/23 12/27/23 Range/Units 00:00 08:47 08:47 RBC 2.83 L (4.30-5.90) m/uL Hgb 8.7 L (13.0-17.5) gm/dL Hct 29.0 L (39.0-53.0) % MCV 102.3 H (80.0-100.0) fL MCHC 30.1 L (31.0-37.0) g/dL Neutrophils # 9.2 H (1.3-7.7) k/uL Lymphocytes # 0.6 L (1.0-4.8) k/uL Carbon Dioxide 35 H (22-30) mmol/L POC Glucose (mg/dL) 182 H (70-110) mg/dL Calcium 7.9 L (8.4-10.2) mg/dL Microbiology - Last 24 Hours (Table) 12/23/23 08:08 Gram Stain - Preliminary Pleural Fluid Body Fluid Culture - Preliminary Burkholderia cepacia complex Assessment and Plan (1) Empyema Current Visit: Yes Status: Acute Code(s): J86.9 - PYOTHORAX WITHOUT FISTULA SNOMED Code(s): 496440964 (2) Leukocytosis Current Visit: Yes Status: Acute Code(s): D72.829 - ELEVATED WHITE BLOOD CELL COUNT, UNSPECIFIED SNOMED Code(s): 424137446 (3) Pneumonia Current Visit: Yes Status: Acute Priority: High Code(s): J18.9 - PNEUMONIA, UNSPECIFIED ORGANISM SNOMED Code(s): 811903693 Plan: 1patient presenting to the hospital with increasing shortness of breath and hemoptysis in this patient who did have a CT of the chest with evidence of moderate right effusion with multiple air-fluid level concerning for empyema status post chest tube placement 2-the patient sputum as well as sputum culture did grew Burkholderia cepacia that is intermediate to ceftazidime sensitive to meropenem 3-patient is afebrile patient did have normalization of the white count, patient did have a midline which can be used for outpatient IV,No need for PICC line continue with the meropenem plan is for at least 2 weeks of antibiotic therapy Dictation was produced using [employer] dictation software. please excuse any grammatical, word or spelling errors. Time with Patient: Less than 30
--- NOTE | 2023-12-27 16:11 | P.PN ---
Subjective Progress Note Date: 12/27/23 Principal diagnosis: Acute hydropneumothorax/empyema with pneumothorax Patient is a 58-year-old white male with past medical history significant for known laryngeal cancer status post tracheostomy, PEG tube insertion, chronic ongoing tobacco dependence, hypothyroidism, Graves' disease, diverticulosis. Patient's laryngeal cancer was previously treated with chemoradiation. No current treatment. Patient recently had a PET scan done September, which revealed persistent uptake in the posterior lateral right cord level compatible with neoplasm. There was a right lower lobe pulmonary nodule measuring 1.2 cm with SUV value of 5.2, suspicious for either primary lung cancer versus metastasis of his laryngeal cancer. He had previously declined biopsy in the past, however, the patient had a recent hospital admission 12/09/2023 through 12/17/2023 for possible postobstructive pneumonia. His CT of the chest during that admission showed lobular heterogenous mass with internal cystic and necrotic components centered in the right middle lobe. Favored to represent interval progression of the patient's known malignant disease. He did have a bronchoscopy with BAL on 12/09/2023. Microbiology has remained negative. Biopsies taking were nondiagnostic for malignancy. Patient ended up going home on hospice care. While at home, he had episodes of hemoptysis and was very short of breath. He ended up calling 911. He has changed his decision to proceed with hospice. In fact, he wants to be full code. He is currently in the emergency room, room 1. He is sitting up in the stretcher, in no acute distress, he is currently on room air. He denies any fevers. Denies any chest pain. Denies trauma. Reports hemoptysis, unable to quantify how much. There is a trach collar lying in his lap set at 35%, however, he does not wish to wear this. Follow-up chest CT this admission shows interval development of a large right hydropneumothorax. There was also consolidative changes around the right pulmonary hilum thought to represent atelectasis with areas of cavitation in the area of the the previously described mass. There are retrained secretions predominantly within the right main bronchus, right lower lobe, and right middle lobe large airways. A right-sided chest tube was placed by the ER physician. This is currently hooked to continuous suction at 20 cm of H2O. No observable airleak. Approximately 450 mL of serosanguineous drainage in the collection chamber. A follow-up chest x-ray shows the right-sided chest tube in place, with a significant decrease in size of the right sided hydro and pneumothorax and partial reexpansion. CBC this admission, WBC count 16.9, hemoglobin 11, hematocrit 34.6, platelets 475. CMP this admission is unremarkable. Normal saline infusing at 75 mL/h. Patient was empirically started on Zosyn. Patient is hemodynamically stable. I saw this patient in the emergency department. The patient already had a right-sided chest tube in place. Output was noted. The fluid is rather cloudy. I suspect an underlying empyema/complicated pleural infection. I also reviewed the earlier CAT scan of the chest that was done back in November 2023. At that time, the patient had a masslike consolidation involving the right midlung area and this could have represented an area of lung abscess. Note that the bronchoscopy endobronchial lavage came back negative at that time.I repeated the chest x-ray from this afternoon and the right-sided chest tube is in place and there is a residual right-sided pneumothorax and there is persistent complex collection in the right lung compatible with his history of pulmonary infection/empyema. The patient is currently on a broad-spectrum antibiotic utilizing Zosyn. As far as the blood work, the procalcitonin level is at 0.22. Rest of the blood work was noted. He is clinically and hemodynamically stable with a pulse ox of 91% on room air oxygen. Communicating. He has a tracheostomy tube in place. On today's evaluation of 12/21/2023, the patient is being seen for a follow-up. Awaiting the pleural fluid analysis. Noted output from the chest tube is minimal and the patient has put out minimal amount of output since yesterday. Total amount of output has not been in the order of 500 cc since the patient arrived to the medical floor. Procalcitonin level is at 0.22. The white cell count is currently at 15.2 with a hemoglobin 10.5 and a platelet count of 5-66. The patient remains on Zosyn and vancomycin. Repeat chest x-ray was done today and it showed no significant interval change compared to yesterday. The chest tube is in good location. There is a very tiny right apical pneumothorax measuring approximately 6 mm in size. There is also pleural-parenchymal opacity in the right lung base that remains unchanged and obviously this needs to be further investigated by CAT scan of the chest and this will be ordered in the form of a noncontrast enhanced CAT scan to be done today. The patient is on room air oxygen. The patient has tracheostomy tube in place. The blood cultures are negative. Sputum samples also sent and the results are still pending for now. Pleural fluid analysis also pending. On today's evaluation of 12/22/2023, I am seeing the patient for a follow-up. The patient is currently on a trach collar with 10 L of oxygen with an FiO2 of 40%. He is calm and comfortable and is not having any significant respiratory distress. The pleural fluid analysis shows no microbial growth for now. Nevertheless, the fluid is an exudate with elevated LDH and protein and low sugar very much consistent with a complicated parapneumonic effusion/. I also repeated the CAT scan of the chest on this patient and this was a noncontrast CAT scan of the chest that was completed yesterday and shows some persistence in the right-sided pleural effusion in the posterior right lung base along with multiple air-fluid levels present. The chest tube is present anteriorly. Noted output from the chest tube has been minimal at this point in time. No evidence of any significant pneumothorax. Similar findings were seen on today's chest x- ray. Labs from today are still pending for now. Patient remains on a combination of Zosyn and vancomycin. I discussed the findings with the patient I also discussed the findings with interventional radiology. The plan is to put the pigtail catheter in the right lower lobe complex fluid collection as noted on the CAT scan of the chest. Meanwhile, the patient continues to receive enteral feeding for nutritional support. He is quite debilitated. On today's evaluation of 12/23/2023, the patient is being seen for a follow-up. Doing well, no specific complaints, on a trach collar with FiO2 of 40% 10 L oxy gen flow. White cell count is at 9.4 with a hemoglobin of 8.9. BUN 11 creatinine of 0.6 and sodium levels at 142. As mentioned yesterday, the pigtail catheter was inserted into the posterior right chest and approximately 900 cc of purulent material was aspirated. Cultures are still pending for now. Repeat chest x-ray was done today and the chest x-ray is showing pigtail catheter in the right lung base. The patient has a loculated right-sided pneumothorax in the lateral aspect of the right lower chest. The pleural-parenchymal opacity in the right lung base is improved. There is some increased density in the medial aspect of the left lung base. The right upper lobe is essentially clear at this point in time. Right-sided chest tube is also in place. There is no evidence of any air leak. No output from the right-sided chest tube. The sputum culture was positive for a combination of Klebsiella and Burhdolderia and the patient is still on a combination of Zosyn and vancomycin. Awaiting cultures from the pleural fluid. Awake and alert and communicating. Continues to receive enteral feeding for additional support. Case was discussed with cardiothoracic surgery. Infectious disease consultation has also been obtained regarding this ongoing empyema. The patient was kept on the same antibiotic coverage. On today's evaluation of 12/24/2023, the patient has no specific complaints. The right-sided chest that was notable to the pigtail catheter has been kept in place. Repeat chest x-ray from today showed essentially stable right-sided hydropneumothorax. The right total chest tube catheter is still in place. There is still some parenchymal pulmonary opacity in the right lung base. Nevertheless, the patient is receiving daily therapy administration and since yesterday, the patient has produced another 400 cc of purulent material through the pigtail catheter. 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 Vancomycin has been discontinued. Noted the sputum and the pleural fluid cultures came back positive for the same microorganism. Infectious disease on the case. The patient remains afebrile. WBC count is at 8.8 with a hemoglobin 8.4 and platelet count of 460. BUN is at 14 with a creatinine of 0.8 and a sodium levels at 141. Awake and alert and communicating. Continues to receive enteral feeding for respiratory support. Terms of his oxygenation currently is on a 40% trach collar. No interval worsening shortness of breath. On today's evaluation of 12/25/2023, I am seeing the patient for a follow-up. Since yesterday, the patient has another additional 500 cc through the chest tube. The patient remains on 40% trach collar. No interval worsening shortness of breath. Respiratory status remained stable. Pigtail catheter is in place. Catheter installation of tPA was done today. Based on today's chest x-ray, the findings are essentially similar with an area of consolidation in the right pos terior lung base with a stable right-sided hydropneumothorax. There is stable pleural-parenchymal opacity in the right lung base. The pigtail catheter is in good location. The patient continues to be on IV meropenem. At the same time, the patient experienced some GI upset. X-ray of the abdomen was done that showed nonspecific findings. Abdomen is nondistended. Tube feeds were placed on hold for yesterday and this will be restarted at a lower rate. On today's evaluation of 12/26/2023, the patient is doing well. Remains on a 40% trach collar. No respiratory distress. No fever or chills. Remains on IV meropenem. Output from the pigtail catheter has been noted and the patient has produced approximately 400 cc of output over the past 24 hours. A follow-up CAT scan of the chest was done without contrast this morning and a CAT scan of the chest showed a significant improvement in the previously described multi air- fluid level and there is improvement in the right-sided hydropneumothorax although there is some residual pneumothorax along the right lateral posterior chest. There is also some perihilar cavitary lesions. Lesions have decreased in size and currently measuring up to 2.7 cm in dimension. Tracheostomy is still in place. The pigtail catheter is in a good location. The right-sided hydropneumothorax is dropped from 17 to 3 cm meter in size. There is emphysema tous changes with paraseptal emphysema in the upper lobes bilaterally.The white cell count is at 9.3 with a hemoglobin of 8 and a platelet count of 450. BUN is at 40 with a creatinine of 0.9 and sodium levels at 142. Patient was reevaluated today on 12/27/2023, patient remains on 40% trach collar, continues to have chest tube in place, remains on antibiotics as per infectious disease, presently on Merrem. Patient is being treated for empyema and hydropneumothorax. Labs including CBC and basic metabolic profile are normal patient seems to be comfortable, I believe infectious disease is planning treatment for at least 2 weeks for his empyema using Merrem. Patient does have a PICC line in place, wondering if this could be done at home but I do not believe the chest tube is ready to be removed yet, continues to drain, and the drainage is still purulent. Continues to have some pneumothorax but no airleak noted Objective - Vital Signs Vital signs: Vital Signs Temp 97.8 F 12/27/23 15:30 Pulse 85 12/27/23 15:30 Resp 16 12/27/23 15:30 BP 89/52 12/27/23 15:30 Pulse Ox 93 L 12/27/23 15:30 FiO2 40 12/27/23 07:44 Intake & Output 12/26/23 12/27/23 12/27/23 18:59 06:59 18:59 Output Total 100 250 240 Balance -100 -250 -240 Output: Chest Tube Drainage 100 50 240 Chest Tube Right 100 50 240 Posterior Chest Urine 200 Other: Voiding Method Toilet Toilet Toilet Urinal Urinal Urinal # Voids 1 - Exam GENERAL EXAM: 58-year-old white male on 40% trach collar, not in distress HEAD: Normocephalic and atraumatic EYES: Normal reaction of pupils, equal size. NOSE: Clear with pink turbinates. THROAT: No erythema or exudates. NECK: No masses, no JVD. Tracheostomy insertion site clean and dry. CHEST/lungs: Diminished breath sounds at the bases, pigtail catheter is noted and draining purulent and serosanguineous fluid. Minimal air leak noted CVS: S1 and S2 normal with no audible murmur, regular rhythm. No extra heart sounds ABDOMEN: No hepatosplenomegaly, active bowel sounds, no guarding or rigidity. PEG tube site clean and dry. SPINE: No scoliosis or deformity SKIN: No rashes CENTRAL NERVOUS SYSTEM: Alert oriented x 3 EXTREMITIES: No clubbing edema or cyanosis - Labs CBC & Chem 7: 12/27/23 08:47 12/27/23 08:47 Labs: Abnormal Lab Results - Last 24 Hours (Table) 12/27/23 12/27/23 12/27/23 Range/Units 00:00 08:47 08:47 RBC 2.83 L (4.30-5.90) m/uL Hgb 8.7 L (13.0-17.5) gm/dL Hct 29.0 L (39.0-53.0) % MCV 102.3 H (80.0-100.0) fL MCHC 30.1 L (31.0-37.0) g/dL Neutrophils # 9.2 H (1.3-7.7) k/uL Lymphocytes # 0.6 L (1.0-4.8) k/uL Carbon Dioxide 35 H (22-30) mmol/L POC Glucose (mg/dL) 182 H (70-110) mg/dL Calcium 7.9 L (8.4-10.2) mg/dL Microbiology - Last 24 Hours (Table) 12/23/23 08:08 Gram Stain - Preliminary Pleural Fluid Body Fluid Culture - Preliminary Burkholderia cepacia complex Assessment and Plan Assessment: Impression: Acute empyema with acute right hydropneumothorax requiring drainage via pigtail catheter, cultures positive for burkhoderia cepacia complex Acute hemoptysis, resolved Acute on chronic hypoxic respiratory failure presently on 40% trach collar History of laryngeal cancer status post chemoradiation and tracheostomy History of PEG tube insertion Underlying COPD Hypothyroidism Chronic ongoing tobacco dependence Recommendation: Continue pigtail catheter in place Continue antibiotics Patient may be a good candidate for right lung washout if no improvement with antibiotics and thrombolytic administration through the pigtail catheter Continue IV Merrem Continue oxygen via trach collar Continue nutritional support Surgery to decide on whether the patient would benefit from decortication/limited decortication/washout Will continue to follow Time with Patient: Less than 30
[2023-12-27 17:26] LABS: Glucose,Whole Blood 127 mg/dL (70-110)
--- NOTE | 2023-12-27 17:52 | P.PN ---
Subjective Progress Note Date: 12/27/23 Principal diagnosis: SOB In f/u pt reporting that SOB is so much better then on admit, he has pigtail inserted on the right still draining into cannister. PEG tube feeds on hold 2/2 diarrhea, no abd pain. Objective - Vital Signs Vital signs: Vital Signs Temp 97.4 F L 12/27/23 09:08 Pulse 77 12/27/23 09:08 Resp 18 12/27/23 09:08 BP 93/51 12/27/23 09:08 Pulse Ox 100 12/27/23 09:08 FiO2 40 12/27/23 07:44 Intake & Output 12/26/23 12/27/23 12/27/23 18:59 06:59 18:59 Output Total 100 250 Balance -100 -250 Output: Chest Tube Drainage 100 50 Chest Tube Right 100 50 Posterior Chest Urine 200 Other: Voiding Method Toilet Toilet Urinal Urinal # Voids 1 - Constitutional General appearance: Present: average body habitus, cooperative, no acute distress - EENT Eyes: Present: anicteric sclerae, EOMI ENT: Present: hearing grossly normal - Respiratory Details: trach in situ, resp even and unlabored - Peripheral edema leg Peripheral Edema: bilateral: None - Gastrointestinal General gastrointestinal: Present: normal bowel sounds, soft. Absent: absent bowel sounds, decreased bowel sounds, distended, hepatomegaly, hyperactive bowel sounds, organomegaly, rigid, scaphoid, splenomegaly, tenderness, umbilical hernia, ventral hernia - Integumentary Integumentary: Present: normal - Neurologic Neurologic: Present: CNII-XII intact - Musculoskeletal Musculoskeletal: Present: strength equal bilaterally - Psychiatric Psychiatric: Present: A&O x's 3, appropriate affect, intact judgment & insight - Labs CBC & Chem 7: 12/27/23 08:47 12/27/23 08:47 Labs: Abnormal Lab Results - Last 24 Hours (Table) 12/27/23 12/27/23 12/27/23 Range/Units 00:00 08:47 08:47 RBC 2.83 L (4.30-5.90) m/uL Hgb 8.7 L (13.0-17.5) gm/dL Hct 29.0 L (39.0-53.0) % MCV 102.3 H (80.0-100.0) fL MCHC 30.1 L (31.0-37.0) g/dL Neutrophils # 9.2 H (1.3-7.7) k/uL Lymphocytes # 0.6 L (1.0-4.8) k/uL Carbon Dioxide 35 H (22-30) mmol/L POC Glucose (mg/dL) 182 H (70-110) mg/dL Calcium 7.9 L (8.4-10.2) mg/dL Microbiology - Last 24 Hours (Table) 12/23/23 08:08 Gram Stain - Preliminary Pleural Fluid Body Fluid Culture - Preliminary Burkholderia cepacia complex Assessment and Plan (1) Pneumonia Current Visit: Yes Status: Acute Priority: High Code(s): J18.9 - PNEUMONIA, UNSPECIFIED ORGANISM SNOMED Code(s): 627342559 (2) Pneumothorax Current Visit: Yes Status: Acute Priority: High Code(s): J93.9 - PNEUMOTHORAX, UNSPECIFIED SNOMED Code(s): 20426849 (3) Dyspnea Current Visit: Yes Status: Acute Priority: High Code(s): R06.00 - DYSPNEA, UNSPECIFIED SNOMED Code(s): 615145028 (4) Squamous cell carcinoma of head and neck Current Visit: No Status: Chronic Priority: High Code(s): C44.42 - SQUAMOUS CELL CARCINOMA OF SKIN OF SCALP AND NECK SNOMED Code(s): 585338447 Plan: Pneumothorax, empyema -Pulmonary treating pt for hydropneumothorax and empyema. ID following. Pt is doing much better Sq cell head neck. Recent PET revealing avid findings in the lung as well as the neck -Patient has previously refused biopsy. He left about 1.5 weeks ago with hospice care -Patient's symptoms were distressing so, he returned to the hospital. -When asked how patient would like to proceed he stated that he would like to speak to Dr. Moreira once he is out of the hospital. There is an appt for pt to be seen on the . -Pleural fluid was neg for malignancy. Patient can decide in the future if he would like to proceed with a biopsy and pursue any palliative treatment -Agree with any type of care that helps palliate patient's symptoms and makes him more comfortable. -Patient denied any further questions at this time Pt reporting adequate pain mgmt Medications for prevention of narcotic induced constipation added as needed. Doctor attests: I performed a history and physical examination of this patient, developed impression and plan of care. Discussed with dictator. I agree with dictators note, documented as a scribe.
[2023-12-28 00:08] LABS: Glucose,Whole Blood 128 mg/dL (70-110)
[2023-12-28 06:01] LABS: Glucose,Whole Blood 93 mg/dL (70-110)
--- NOTE | 2023-12-28 07:04 | P.PN ---
Subjective Progress Note Date: 12/27/23 Patient is a 58-year-old male with a past medical history of laryngeal cancer status post chemoradiation in July 2023 last tracheostomy and PEG tube placement, COPD, hypothyroidism, history of Graves' disease and currently everyday smoker presents to ER with worsening shortness of breath and hemopty sis. Patient was recently admitted to the hospital from 12/10/2023 to 12/17/2023 and was treated for postoperative pneumonia and COPD. Patient was discharged under hospice care. Patient states that he has been having copious amounts of secretions from the tracheostomy. Denies any fever. No nausea or vomiting. Patient had recent PET scan in September 2023 which showed persistent uptake in the posterior lateral right vocal cord compatible with neoplasm. Patient previously declined biopsy. Chest x-ray on admission showed increasing lucency throughout the right lung concerning for pneumothorax. Small pleural effusion may also be present. CT chest showed interval development of large right pneumothorax with large pneumothorax and small heterogenous complex right pleural effusion. There is consolidation changes around the right pulmonary hilum thought to represent atelectasis in the area of cavitation possibly secondary to prior mass. Retained secretions predominantly within the right main bronchus, right lower and right middle lobe large airways. Correlate for retained secretions. Co nsider bronchoscopy. Chest tube was placed by ER physician. Repeat chest x-ray showed right-sided c hest tube in place with significant decrease in size of right-sided hydro pneumothorax and partial reexpansion. Laboratory data showed WBC 16.9 hemoglobin 11.0 and platelets 475 Sodium 134 potassium 5.1 chloride 105 bicarb is 22 BUN 19 and creatinine 0.41 and blood sugar 64 albumin 2.6 and procalcitonin level is elevated to 0.22 12/21/2023 Patient is seen in follow-up today continues to report significant shortness of breath and pain in multiple areas including the right chest where his chest tube is. Home medications reviewed and resumed as appropriate and patient is continued on Dilaudid and will resume [place] and his fentanyl patch. Follow-up chest x-ray today shows no significant change in pleural parenchymal opacity of the right lung base with slightly improved right apical pneumothorax. CT chest is ordered and pending at this time. Patient is continued on IV antibiotics in the form of Zosyn and vancomycin being added. Patient is afebrile with no reports of chest pain or palpitations. Patient continues on trach collar with a flow rate of 8 and FiO2 is 35%. Tolerating tube feeds thus far and will also add bowel regimen given he is on a number of different narcotics. 12/22/2023 Patient is seen and evaluated in follow-up maintained on trach collar and high flow oxygen with continued right chest tube. There is noted fluid collection on the CT imaging from yesterday and IR has been consulted possible pigtail catheter placement as it appears somewhat loculated. Present right-sided chest tube with minimal output noted per nursing staff. Patient is maintained on antibiotics and will consult infectious disease and appreciate input and recommendations. Cultures all remain pending thus far. Cytology is pending as well. Overall prognosis remains poor and guarded at this time. Patient wishes to remain full code. 12/23/2023 Patient seen and evaluated in follow-up status post pigtail catheter placement and CT surgery has been consulted. Patient to receive alteplase for loculated empyema noted on the right. Patient is continued on breathing inhalational treatments along with high flow oxygen via trach collar. Patient is reporting significant pain and will adjust medications appropriately. Had a lengthy discussion with the patient regarding overall CODE STATUS and patient wishes to remain full code does not currently want hospice. Discussed with daughter over the phone after discussing with patient about overall prognosis and treatment plan moving forward. Daughter feels he would benefit from rehab as all of his comorbidities have become more difficult to handle and she feels he is not safe to return home and manage his care himself. Case management is following and working with the patient. Will have PT/OT therapy evaluate the patient. Inf ectious disease following and patient is maintained on broad spec. 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 Patient may likely require IV antibiotics on discharge. Patient will require a PICC line and no staff available until Wednesday to have a PICC line placed. Patient is currently afebrile and denies chest pain or palpitations. Patient reports continued shortness of breath off with secretions. Patient tolerating tube feedings thus far and will continue on bowel regimen as well as patient is receiving IV narcotics. 12/24/2023 Patient is seen and evaluated in follow-up with multiple medical consultations following. Patient remains on trach collar 30% and reports no significant improvements in dyspnea although reports about the same. Patient continues with pigtail catheter currently receiving alteplase daily and chest x-rays with CT surgery following. Patient continues to have purulent drainage with cultures mentioned above with infectious disease following. Patient is continued on meropenem and vancomycin is discontinued. Patient continues on tube feeds and reports tolerating although feels for and reports not having a bowel movement over the last 5 days. Will obtain abdominal x-ray and continue bowel regimen. Recommend Dulcolax suppository and this was discussed with nursing at bedside. Patient is agreeable. Patient is continued on a number of pain medications which would make me concerned for constipation. Minimal bowel sounds noted. Patient denies abdominal pain but does report feeling full. Per nursing staff as well patient's insurance information and paperwork has been faxed with daughter at the bedside regarding continuation of [employer] insurance through his employer. Case management is following. Patient may require IV antibiotics on discharge and continued nursing care at an [facility]. Encouraged to increase activity as tolerated. 12/25/2023 Patient is sitting on side of bed. Awake alert and oriented 3. Unable to communicate due to trach collar with 40% FiO2. Patient had additional 5 cc through chest tube. No complaints of chest pain. Breathing status improving. Chest x-ray today showed right basilar pigtail pleural catheter terminates over the medial lung base. Small amount of gas in the chest wall adjacent to the tube. Similar amount of air within the right-sided pleural collection compatible with hydropneumothorax and empyema. Stable pleural-parenchymal o pacity in the right lung base and increased density in the medial left lung base. Laboratory data showed reviewed. Pulmonary is on board. 12/26/2023 Patient is sitting on side of bed. Awake alert and oriented x 3. Trach collar with 40% FiO2. No complaints of chest pain or worsening shortness of breath. Patient is having 400 cc fluid output from the pigtail catheter. Patient is afebrile otherwise. No nausea vomiting. CT chest was done today showed complex pleural collection seen previously is much improved with previously noted multiple air-fluid levels essentially resolving hydropneumothorax persisting. Persistent right perihilar cavitary lesion. Patient appears smaller in size and currently measures 2.7 cm in greatest dimension versus 4.3 cm. Laboratory data showed WBC 9.3 hemoglobin 8.0 and platelets 450 and MCV 103.9, sodium 142 potassium 3.6 chloride 106 bicarb is 33 BUN 14 and creatinine 0.599 and blood sugar is 78 and calcium 8.0. Pulmonary is on board. Patient on antibiotics meropenem. 12/27/2023 Patient is seen and evaluated in follow-up with multiple medical consultations following. Patient is continued on IV antibiotics with infectious disease following currently on meropenem and discussing possibly requiring IV antibiotic therapy on discharge. Patient does have a PICC line. Patient continues with right pigtail catheter currently receiving alteplase with CT surgery following as there continues to be purulent drainage noted. Discussing possible washout of the right lung. Patient continues on pain management as well as bowel regimen and will continue. Wean FiO2 as tolerated. Patient currently on 40% FiO2 trach collar. Patient is afebrile with no reports of worsening shortness of breath. Patient denying chest pain or palpitations. Patient is tolerating tube feedings and recommend to continue with head of the bed elevated 30 to 45 degrees at all times and monitoring for residuals. Review of systems: Constitutional: No reports of fatigue, fever, or chills Cardiovascular: No reports of chest pain or palpitations Respiratory: reports of continued shortness of breath and right chest wall pain near the chest tube site, shortness of breath is improving GI: No reports of nausea, vomiting, or diarrhea, reports having bowel movements : No reports of dysuria or retention Neurovascular: reports of generalized weakness All medications have been reviewed PHYSICAL EXAMINATION: Patient is sitting up in the bed, appears slightly less anxious, awake alert and oriented. Thin built, emaciated, ill-appearing, elderly appearing, has trach eostomy currently maintained on oxygen with a trach collar 40%.. HEENT: Normocephalic. Neck is supple. Pupils reactive. Nostrils clear. Oral cavity is moist. Neck reveals no JVD, carotid bruits, or thyromegaly. CHEST EXAMINATION: Trachea is central. Symmetrical expansion. Bibasilar coarse sounds and crackles. Nonlabored breathing.. Right pigtail catheter noted purulent drainage noted CARDIAC: S1, S2 muffled ABDOMEN: Soft. Thin, scaphoid bowel sounds hypoactive. No organomegaly. No abdominal bruits. PEG tube noted Extremities: reveal no edema. No clubbing or cyanosis Neurologically awake, alert, oriented x3. Able to move all extremities. No gross focal neurological deficits.. Diffusely weak Skin: No rash or skin lesions. Psychiatric: Cooperative. Non-suicidal Musculoskeletal: No joint swelling or deformity. Assessment: Acute large right-sided hydropneumothorax status post chest tube placement with decrease in size of the right-sided hydropneumothorax and partial reexpansion. Acute on chronic hypoxemic respiratory failure secondary to above, on trach collar FiO2 is 40% and O2 is 11 L Right-sided empyema, status post pigtail catheter placement, receiving daily alteplase administration through chest tube, CT surgery following and discussing possible need for washout of right lung Acute hemoptysis on admission, resolved History of laryngeal cancer status post chemoradiation in July 2023 and tracheostomy and PEG tube placement. Patient had PET scan done in September 2023 showed persistent uptake in the posterior lateral right cord level compatible with neoplasm. Patient declined biopsy on previous admission recently Recent admission for from 11/19/2023 to 12/17/2023 postobstructive pneumonia and also CT evidence of lobular heterogenous mass and necrotic components in the right middle lobe. Status post bronchoscopy and biopsy. BAL cultures negative and biopsies nondiagnostic for malignancy. Hypothyroidism History of Graves' disease COPD Ongoing nicotine addiction DVT prophylaxis with heparin subcu GI prophylaxis Full code Plan: Patient is on humidified oxygen via trach collar with an FiO2 of 40% and oxygen is 11 L. Weaning as tolerated. Status post right-sided chest tube placement with suction due to hydropneumothorax. Chest x-ray shows some stable pneumothorax on the right and continues with a chest tube at this time. Right chest tube has been removed and patient continues with a pigtail catheter that was placed. CT surgery following receiving daily alteplase is continued purulent drainage is noted. Discussing possible washout of the right lung. Patient is being continued on IV antibiotics in the form of cefepime with infectious disease following. Procalcitonin level is 0.22 concerns of possible postobstructive pneumonia. 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 Patient will benefit from IV antibiotics on discharge. Patient does have a PICC line Continue with breathing treatments and follow-up culture reports. Continue with pain management and bowel regimen. Patient was previously transferred to hospice care but currently would like to be full code. Discussed with the patient and his daughter Kirsten in regards to overall treatment plan and prognosis and patient does not want to be on ho spice as of yet and would like to continue seeking treatment. Patient with significant weakness as well as significant comorbidities will consult PT/OT and discuss further with case management regarding discharge planning once patient is stabilized. Family feels he is unable to care for himself and would benefit from ECF. Patient will likely require IV antibiotics on discharge given this empyema and extensive pneumonia. Patient does have a PICC line. Will await finalized cultures and discuss with other consultations regarding this. Due to multiple complex medical issues, overall prognosis is poor and guarded The impression and plan of care has been dictated by Virginie Urbina, Nurse Practitioner as directed. Dr. Andreas MD I have performed a history and examination and MDM of this patient, discussed the same with the dictator, and agree with the dictator's assessment and plan as written ,documented as a scribe. Based on total visit time, I have performed more than 50% of the visit. Objective - Vital Signs Vital signs: Vital Signs Temp 97.4 F L 12/27/23 09:08 Pulse 102 H 12/27/23 11:59 Resp 16 12/27/23 11:59 BP 105/67 12/27/23 11:59 Pulse Ox 90 L 12/27/23 11:59 FiO2 40 12/27/23 07:44 Intake & Output 12/26/23 12/27/23 12/27/23 18:59 06:59 18:59 Output Total 100 250 240 Balance -100 -250 -240 Output: Chest Tube Drainage 100 50 240 Chest Tube Right 100 50 240 Posterior Chest Urine 200 Other: Voiding Method Toilet Toilet Toilet Urinal Urinal Urinal # Voids 1 - Labs CBC & Chem 7: 12/27/23 08:47 12/27/23 08:47 Labs: Abnormal Lab Results - Last 24 Hours (Table) 12/27/23 12/27/23 12/27/23 Range/Units 00:00 08:47 08:47 RBC 2.83 L (4.30-5.90) m/uL Hgb 8.7 L (13.0-17.5) gm/dL Hct 29.0 L (39.0-53.0) % MCV 102.3 H (80.0-100.0) fL MCHC 30.1 L (31.0-37.0) g/dL Neutrophils # 9.2 H (1.3-7.7) k/uL Lymphocytes # 0.6 L (1.0-4.8) k/uL Carbon Dioxide 35 H (22-30) mmol/L POC Glucose (mg/dL) 182 H (70-110) mg/dL Calcium 7.9 L (8.4-10.2) mg/dL Microbiology - Last 24 Hours (Table) 12/23/23 08:08 Gram Stain - Preliminary Pleural Fluid Body Fluid Culture - Preliminary Burkholderia cepacia complex
[2023-12-28 10:26] LABS: Basophils % (A) 0 %; Eosinophils # (A) 0.1 k/uL (0-0.7); Eosinophils % (A) 1 %; HCT 29.7 % (39.0-53.0); HGB 8.7 gm/dL (13.0-17.5); Hypochromasia Marked; Lymphocytes # (A) 0.6 k/uL (1.0-4.8); Lymphocytes % (A) 6 %; MCH 30.2 pg (25.0-35.0); MCHC 29.3 g/dL (31.0-37.0); MCV 102.9 fL (80.0-100.0); Macrocytosis Slight; Mean Platelet Volume 8.3; Monocytes # (A) 0.4 k/uL (0-1.0); Monocytes % (A) 4 %; Neutrophils % (A) 87 %; Platelet Count 451 k/uL (150-450); RBC 2.89 m/uL (4.30-5.90); RDW 14.7 % (11.5-15.5); WBC 9.2 k/uL (3.8-10.6)
[2023-12-28 10:41] LABS: African American GFR (CKD) >90 (>60 ml/min/1.73 sqM); Anion Gap 3 mmol/L; Blood Urea Nitrogen 18 mg/dL (9-20); Carbon Dioxide 36 mmol/L (22-30); Chloride 104 mmol/L (98-107); Glucose 91 mg/dL (74-99); Magnesium 2.1 mg/dL (1.6-2.3); Non-African American GFR(CKD) >90 (>60 ml/min/1.73 sqM); Potassium 3.6 mmol/L (3.5-5.1); Sodium 143 mmol/L (137-145)
[2023-12-28] MEDS: DORNASE ALFA 5 MG in SODIUM CHLORIDE 0.9% 50 ML IRRIGATION ONE (11:18)
[2023-12-28] MEDS: ALTEPLASE 10 MG in SODIUM CHLORIDE 0.9% 50 ML IRRIGATION ONE (11:18)
[2023-12-28 12:02] LABS: Glucose,Whole Blood 128 mg/dL (70-110)
--- NOTE | 2023-12-28 14:03 | P.PN ---
Subjective Progress Note Date: 12/28/23 Principal diagnosis: Acute hydropneumothorax/empyema with pneumothorax Patient is a 58-year-old white male with past medical history significant for known laryngeal cancer status post tracheostomy, PEG tube insertion, chronic ongoing tobacco dependence, hypothyroidism, Graves' disease, diverticulosis. Patient's laryngeal cancer was previously treated with chemoradiation. No current treatment. Patient recently had a PET scan done September, which revealed persistent uptake in the posterior lateral right cord level compatible with neoplasm. There was a right lower lobe pulmonary nodule measuring 1.2 cm with SUV value of 5.2, suspicious for either primary lung cancer versus metastasis of his laryngeal cancer. He had previously declined biopsy in the past, however, the patient had a recent hospital admission 12/09/2023 through 12/17/2023 for possible postobstructive pneumonia. His CT of the chest during that admission showed lobular heterogenous mass with internal cystic and necrotic components centered in the right middle lobe. Favored to represent interval progression of the patient's known malignant disease. He did have a bronchoscopy with BAL on 12/09/2023. Microbiology has remained negative. Biopsies taking were nondiagnostic for malignancy. Patient ended up going home on hospice care. While at home, he had episodes of hemoptysis and was very short of breath. He ended up calling 911. He has changed his decision to proceed with hospice. In fact, he wants to be full code. He is currently in the emergency room, room 1. He is sitting up in the stretcher, in no acute distress, he is currently on room air. He denies any fevers. Denies any chest pain. Denies trauma. Reports hemoptysis, unable to quantify how much. There is a trach collar lying in his lap set at 35%, however, he does not wish to wear this. Follow-up chest CT this admission shows interval development of a large right hydropneumothorax. There was also consolidative changes around the right pulmonary hilum thought to represent atelectasis with areas of cavitation in the area of the the previously described mass. There are retrained secretions predominantly within the right main bronchus, right lower lobe, and right middle lobe large airways. A right-sided chest tube was placed by the ER physician. This is currently hooked to continuous suction at 20 cm of H2O. No observable airleak. Approximately 450 mL of serosanguineous drainage in the collection chamber. A follow-up chest x-ray shows the right-sided chest tube in place, with a significant decrease in size of the right sided hydro and pneumothorax and partial reexpansion. CBC this admission, WBC count 16.9, hemoglobin 11, hematocrit 34.6, platelets 475. CMP this admission is unremarkable. Normal saline infusing at 75 mL/h. Patient was empirically started on Zosyn. Patient is hemodynamically stable. I saw this patient in the emergency department. The patient already had a right-sided chest tube in place. Output was noted. The fluid is rather cloudy. I suspect an underlying empyema/complicated pleural infection. I also reviewed the earlier CAT scan of the chest that was done back in November 2023. At that time, the patient had a masslike consolidation involving the right midlung area and this could have represented an area of lung abscess. Note that the bronchoscopy endobronchial lavage came back negative at that time.I repeated the chest x-ray from this afternoon and the right-sided chest tube is in place and there is a residual right-sided pneumothorax and there is persistent complex collection in the right lung compatible with his history of pulmonary infection/empyema. The patient is currently on a broad-spectrum antibiotic utilizing Zosyn. As far as the blood work, the procalcitonin level is at 0.22. Rest of the blood work was noted. He is clinically and hemodynamically stable with a pulse ox of 91% on room air oxygen. Communicating. He has a tracheostomy tube in place. On today's evaluation of 12/21/2023, the patient is being seen for a follow-up. Awaiting the pleural fluid analysis. Noted output from the chest tube is minimal and the patient has put out minimal amount of output since yesterday. Total amount of output has not been in the order of 500 cc since the patient arrived to the medical floor. Procalcitonin level is at 0.22. The white cell count is currently at 15.2 with a hemoglobin 10.5 and a platelet count of 5-66. The patient remains on Zosyn and vancomycin. Repeat chest x-ray was done today and it showed no significant interval change compared to yesterday. The chest tube is in good location. There is a very tiny right apical pneumothorax measuring approximately 6 mm in size. There is also pleural-parenchymal opacity in the right lung base that remains unchanged and obviously this needs to be further investigated by CAT scan of the chest and this will be ordered in the form of a noncontrast enhanced CAT scan to be done today. The patient is on room air oxygen. The patient has tracheostomy tube in place. The blood cultures are negative. Sputum samples also sent and the results are still pending for now. Pleural fluid analysis also pending. On today's evaluation of 12/22/2023, I am seeing the patient for a follow-up. The patient is currently on a trach collar with 10 L of oxygen with an FiO2 of 40%. He is calm and comfortable and is not having any significant respiratory distress. The pleural fluid analysis shows no microbial growth for now. Nevertheless, the fluid is an exudate with elevated LDH and protein and low sugar very much consistent with a complicated parapneumonic effusion/. I also repeated the CAT scan of the chest on this patient and this was a noncontrast CAT scan of the chest that was completed yesterday and shows some persistence in the right-sided pleural effusion in the posterior right lung base along with multiple air-fluid levels present. The chest tube is present anteriorly. Noted output from the chest tube has been minimal at this point in time. No evidence of any significant pneumothorax. Similar findings were seen on today's chest x- ray. Labs from today are still pending for now. Patient remains on a combination of Zosyn and vancomycin. I discussed the findings with the patient I also discussed the findings with interventional radiology. The plan is to put the pigtail catheter in the right lower lobe complex fluid collection as noted on the CAT scan of the chest. Meanwhile, the patient continues to receive enteral feeding for nutritional support. He is quite debilitated. On today's evaluation of 12/23/2023, the patient is being seen for a follow-up. Doing well, no specific complaints, on a trach collar with FiO2 of 40% 10 L oxy gen flow. White cell count is at 9.4 with a hemoglobin of 8.9. BUN 11 creatinine of 0.6 and sodium levels at 142. As mentioned yesterday, the pigtail catheter was inserted into the posterior right chest and approximately 900 cc of purulent material was aspirated. Cultures are still pending for now. Repeat chest x-ray was done today and the chest x-ray is showing pigtail catheter in the right lung base. The patient has a loculated right-sided pneumothorax in the lateral aspect of the right lower chest. The pleural-parenchymal opacity in the right lung base is improved. There is some increased density in the medial aspect of the left lung base. The right upper lobe is essentially clear at this point in time. Right-sided chest tube is also in place. There is no evidence of any air leak. No output from the right-sided chest tube. The sputum culture was positive for a combination of Klebsiella and Burhdolderia and the patient is still on a combination of Zosyn and vancomycin. Awaiting cultures from the pleural fluid. Awake and alert and communicating. Continues to receive enteral feeding for additional support. Case was discussed with cardiothoracic surgery. Infectious disease consultation has also been obtained regarding this ongoing empyema. The patient was kept on the same antibiotic coverage. On today's evaluation of 12/24/2023, the patient has no specific complaints. The right-sided chest that was notable to the pigtail catheter has been kept in place. Repeat chest x-ray from today showed essentially stable right-sided hydropneumothorax. The right total chest tube catheter is still in place. There is still some parenchymal pulmonary opacity in the right lung base. Nevertheless, the patient is receiving daily therapy administration and since yesterday, the patient has produced another 400 cc of purulent material through the pigtail catheter. 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 Vancomycin has been discontinued. Noted the sputum and the pleural fluid cultures came back positive for the same microorganism. Infectious disease on the case. The patient remains afebrile. WBC count is at 8.8 with a hemoglobin 8.4 and platelet count of 460. BUN is at 14 with a creatinine of 0.8 and a sodium levels at 141. Awake and alert and communicating. Continues to receive enteral feeding for respiratory support. Terms of his oxygenation currently is on a 40% trach collar. No interval worsening shortness of breath. On today's evaluation of 12/25/2023, I am seeing the patient for a follow-up. Since yesterday, the patient has another additional 500 cc through the chest tube. The patient remains on 40% trach collar. No interval worsening shortness of breath. Respiratory status remained stable. Pigtail catheter is in place. Catheter installation of tPA was done today. Based on today's chest x-ray, the findings are essentially similar with an area of consolidation in the right pos terior lung base with a stable right-sided hydropneumothorax. There is stable pleural-parenchymal opacity in the right lung base. The pigtail catheter is in good location. The patient continues to be on IV meropenem. At the same time, the patient experienced some GI upset. X-ray of the abdomen was done that showed nonspecific findings. Abdomen is nondistended. Tube feeds were placed on hold for yesterday and this will be restarted at a lower rate. On today's evaluation of 12/26/2023, the patient is doing well. Remains on a 40% trach collar. No respiratory distress. No fever or chills. Remains on IV meropenem. Output from the pigtail catheter has been noted and the patient has produced approximately 400 cc of output over the past 24 hours. A follow-up CAT scan of the chest was done without contrast this morning and a CAT scan of the chest showed a significant improvement in the previously described multi air- fluid level and there is improvement in the right-sided hydropneumothorax although there is some residual pneumothorax along the right lateral posterior chest. There is also some perihilar cavitary lesions. Lesions have decreased in size and currently measuring up to 2.7 cm in dimension. Tracheostomy is still in place. The pigtail catheter is in a good location. The right-sided hydropneumothorax is dropped from 17 to 3 cm meter in size. There is emphysema tous changes with paraseptal emphysema in the upper lobes bilaterally.The white cell count is at 9.3 with a hemoglobin of 8 and a platelet count of 450. BUN is at 40 with a creatinine of 0.9 and sodium levels at 142. Patient was reevaluated today on 12/27/2023, patient remains on 40% trach collar, continues to have chest tube in place, remains on antibiotics as per infectious disease, presently on Merrem. Patient is being treated for empyema and hydropneumothorax. Labs including CBC and basic metabolic profile are normal patient seems to be comfortable, I believe infectious disease is planning treatment for at least 2 weeks for his empyema using Merrem. Patient does have a PICC line in place, wondering if this could be done at home but I do not believe the chest tube is ready to be removed yet, continues to drain, and the drainage is still purulent. Continues to have some pneumothorax but no airleak noted Reevaluate today on 12/28/2023, patient remains on 40% trach collar. Continues to have right-sided chest tube/pigtail catheter in place, continues to drain however the drainage is becoming minimal. Last CT of the chest did show evidence of hydropneumothorax, updated thoracic surgery on the case, apparently Dr. Lubin is aware of the case, and he has no plans for decortication will have thoracic surgery evaluate the patient again, but over the phone no plans for decortication. In the meantime the patient is receiving antibiotics, and the plan is to give him 2 full weeks of IV antibiotics. Patient does not seem to be in distress, however I am quite concerned that once we remove the pigtail catheter, the fluid is going to build up again, and the patient may have a bit of a trapped lung. Objective - Vital Signs Vital signs: Vital Signs Temp 98.0 F 12/28/23 12:00 Pulse 63 12/28/23 08:00 Resp 18 12/28/23 12:00 BP 92/56 12/28/23 12:00 Pulse Ox 92 L 12/28/23 12:00 FiO2 28 12/28/23 08:05 Intake & Output 12/27/23 12/28/23 12/28/23 18:59 06:59 18:59 Intake Total 120 Output Total 390 430 0 Balance -270 -430 0 Weight 71.5 kg 71.5 kg Intake: Oral 120 Output: Chest Tube Drainage 390 130 0 Chest Tube Right 390 130 0 Posterior Chest Urine 300 Other: Voiding Method Toilet Toilet Toilet Urinal Urinal Urinal - Exam GENERAL EXAM: 58-year-old white male on 40% trach collar, not in distress HEAD: Normocephalic and atraumatic EYES: Normal reaction of pupils, equal size. NOSE: Clear with pink turbinates. THROAT: No erythema or exudates. NECK: No masses, no JVD. Tracheostomy insertion site clean and dry. CHEST/lungs: Diminished breath sounds at the bases, pigtail catheter is noted and draining purulent and serosanguineous fluid. Minimal air leak noted CVS: S1 and S2 normal with no audible murmur, regular rhythm. No extra heart sounds ABDOMEN: No hepatosplenomegaly, active bowel sounds, no guarding or rigidity. PEG tube site clean and dry. SPINE: No scoliosis or deformity SKIN: No rashes CENTRAL NERVOUS SYSTEM: Alert oriented x 3 EXTREMITIES: No clubbing edema or cyanosis - Labs CBC & Chem 7: 12/28/23 09:46 12/28/23 09:46 Labs: Abnormal Lab Results - Last 24 Hours (Table) 12/27/23 12/28/23 12/28/23 Range/Units 17:25 00:07 09:46 RBC 2.89 L (4.30-5.90) m/uL Hgb 8.7 L (13.0-17.5) gm/dL Hct 29.7 L (39.0-53.0) % MCV 102.9 H (80.0-100.0) fL MCHC 29.3 L (31.0-37.0) g/dL Plt Count 451 H (150-450) k/uL Neutrophils # 8.0 H (1.3-7.7) k/uL Lymphocytes # 0.6 L (1.0-4.8) k/uL Carbon Dioxide (22-30) mmol/L Creatinine (0.66-1.25) mg/dL POC Glucose (mg/dL) 127 H 128 H (70-110) mg/dL Calcium (8.4-10.2) mg/dL 12/28/23 12/28/23 Range/Units 09:46 12:01 RBC (4.30-5.90) m/uL Hgb (13.0-17.5) gm/dL Hct (39.0-53.0) % MCV (80.0-100.0) fL MCHC (31.0-37.0) g/dL Plt Count (150-450) k/uL Neutrophils # (1.3-7.7) k/uL Lymphocytes # (1.0-4.8) k/uL Carbon Dioxide 36 H (22-30) mmol/L Creatinine 0.59 L (0.66-1.25) mg/dL POC Glucose (mg/dL) 128 H (70-110) mg/dL Calcium 8.0 L (8.4-10.2) mg/dL Microbiology - Last 24 Hours (Table) 12/23/23 08:08 Gram Stain - Final Pleural Fluid Body Fluid Culture - Final Burkholderia cepacia complex Assessment and Plan Assessment: Impression: Acute empyema with acute right hydropneumothorax requiring drainage via pigtail catheter, cultures positive for burkhoderia cepacia complex Acute hemoptysis, resolved Acute on chronic hypoxic respiratory failure presently on 40% trach collar History of laryngeal cancer status post chemoradiation and tracheostomy History of PEG tube insertion Underlying COPD Hypothyroidism Chronic ongoing tobacco dependence Recommendation: Continue pigtail catheter in place Continue antibiotics Will ask thoracic surgery to evaluate again for possible decortication Continue IV Merrem Continue oxygen via trach collar Continue nutritional support Prognosis remains very guarded Will continue to follow Time with Patient: Less than 30
[2023-12-28] MEDS ORDERED: polyethylene glycoL 3350 17 GM POWD.PACK PEG/G-TUBE PRN (15:37)
[2023-12-28 20:04] LABS: Glucose,Whole Blood 132 mg/dL (70-110)
--- NOTE | 2023-12-28 22:41 | P.PN ---
Subjective Progress Note Date: 12/28/23 Principal diagnosis: Reason for follow-up is pneumonia/empyema Patient is a 58-year male with a history of squamous cell carcinoma head and neck s/p trach and PEG recent CT chest with heterogeneous mass right middle lobe s/p bronchoscopy culture negative presenting back to the hospital with worsening shortness of breath with a repeat CT shows large right hydropneumothorax s/p chest tube placement and concerning for empyema. On today's evaluation that is 12/28/2023, the patient continues to be afebrile, the patient is on 5 L trach collar and breathing comfortably, the Pt denies having any chest pain and cough has decreased in intensity, the patient denies having any abdominal pain no vomiting or any diarrhea has been reported by the nursing staff. Patient white count is 9.2, creatinine 0.59 blood culture negative Objective - Vital Signs Vital signs: Vital Signs Temp 97.3 F L 12/28/23 19:48 Pulse 89 12/28/23 19:48 Resp 15 12/28/23 19:48 BP 105/71 12/28/23 19:48 Pulse Ox 95 12/28/23 21:02 FiO2 28 12/28/23 21:02 Intake & Output 12/28/23 12/28/23 12/29/23 06:59 18:59 06:59 Output Total 430 0 0 Balance -430 0 0 Weight 71.5 kg 71.5 kg Output: Chest Tube Drainage 130 0 0 Chest Tube Right 130 0 0 Posterior Chest Urine 300 Other: Voiding Method Toilet Toilet Urinal Urinal - Exam GENERAL DESCRIPTION: Middle-age male up in bed in no distress RESPIRATORY SYSTEM: Unlabored breathing , decreased breath sounds at bases HEART: S1 S2 regular rate and rhythm , ABDOMEN: Soft , no tenderness EXTREMITIES: No edema feet - Labs CBC & Chem 7: 12/28/23 09:46 12/28/23 09:46 Labs: Abnormal Lab Results - Last 24 Hours (Table) 12/28/23 12/28/23 12/28/23 Range/Units 00:07 09:46 09:46 RBC 2.89 L (4.30-5.90) m/uL Hgb 8.7 L (13.0-17.5) gm/dL Hct 29.7 L (39.0-53.0) % MCV 102.9 H (80.0-100.0) fL MCHC 29.3 L (31.0-37.0) g/dL Plt Count 451 H (150-450) k/uL Neutrophils # 8.0 H (1.3-7.7) k/uL Lymphocytes # 0.6 L (1.0-4.8) k/uL Carbon Dioxide 36 H (22-30) mmol/L Creatinine 0.59 L (0.66-1.25) mg/dL POC Glucose (mg/dL) 128 H (70-110) mg/dL Calcium 8.0 L (8.4-10.2) mg/dL 12/28/23 12/28/23 Range/Units 12:01 20:03 RBC (4.30-5.90) m/uL Hgb (13.0-17.5) gm/dL Hct (39.0-53.0) % MCV (80.0-100.0) fL MCHC (31.0-37.0) g/dL Plt Count (150-450) k/uL Neutrophils # (1.3-7.7) k/uL Lymphocytes # (1.0-4.8) k/uL Carbon Dioxide (22-30) mmol/L Creatinine (0.66-1.25) mg/dL POC Glucose (mg/dL) 128 H 132 H (70-110) mg/dL Calcium (8.4-10.2) mg/dL Microbiology - Last 24 Hours (Table) 12/23/23 08:08 Gram Stain - Final Pleural Fluid Body Fluid Culture - Final Burkholderia cepacia complex Assessment and Plan (1) Empyema Current Visit: Yes Status: Acute Code(s): J86.9 - PYOTHORAX WITHOUT FISTULA SNOMED Code(s): 307752955 (2) Leukocytosis Current Visit: Yes Status: Acute Code(s): D72.829 - ELEVATED WHITE BLOOD CELL COUNT, UNSPECIFIED SNOMED Code(s): 197830367 (3) Pneumonia Current Visit: Yes Status: Acute Priority: High Code(s): J18.9 - PNEUMONIA, UNSPECIFIED ORGANISM SNOMED Code(s): 656608390 Plan: 1patient presenting to the hospital with increasing shortness of breath and hemoptysis in this patient who did have a CT of the chest with evidence of moderate right effusion with multiple air-fluid level concerning for empyema status post chest tube placement 2-the patient sputum as well as sputum culture did grew Burkholderia cepacia that is intermediate to ceftazidime sensitive to meropenem 3-patient is afebrile patient did have normalization of the white count, patient did have a midline which can be used for outpatient IV antibiotic therapy CT surgery to reevaluate for possible decortication as per pulmonary note and the patient will be monitored closely continue meropenem Dictation was produced using [employer] dictation software. please excuse any grammatical, word or spelling errors. Time with Patient: Less than 30
[2023-12-29 00:15] LABS: Glucose,Whole Blood 111 mg/dL (70-110)
--- NOTE | 2023-12-29 06:01 | P.PN ---
Subjective Progress Note Date: 12/28/23 Patient is a 58-year-old male with a past medical history of laryngeal cancer status post chemoradiation in July 2023 last tracheostomy and PEG tube placement, COPD, hypothyroidism, history of Graves' disease and currently everyday smoker presents to ER with worsening shortness of breath and hemopty sis. Patient was recently admitted to the hospital from 12/10/2023 to 12/17/2023 and was treated for postoperative pneumonia and COPD. Patient was discharged under hospice care. Patient states that he has been having copious amounts of secretions from the tracheostomy. Denies any fever. No nausea or vomiting. Patient had recent PET scan in September 2023 which showed persistent uptake in the posterior lateral right vocal cord compatible with neoplasm. Patient previously declined biopsy. Chest x-ray on admission showed increasing lucency throughout the right lung concerning for pneumothorax. Small pleural effusion may also be present. CT chest showed interval development of large right pneumothorax with large pneumothorax and small heterogenous complex right pleural effusion. There is consolidation changes around the right pulmonary hilum thought to represent atelectasis in the area of cavitation possibly secondary to prior mass. Retained secretions predominantly within the right main bronchus, right lower and right middle lobe large airways. Correlate for retained secretions. Co nsider bronchoscopy. Chest tube was placed by ER physician. Repeat chest x-ray showed right-sided c hest tube in place with significant decrease in size of right-sided hydro pneumothorax and partial reexpansion. Laboratory data showed WBC 16.9 hemoglobin 11.0 and platelets 475 Sodium 134 potassium 5.1 chloride 105 bicarb is 22 BUN 19 and creatinine 0.41 and blood sugar 64 albumin 2.6 and procalcitonin level is elevated to 0.22 12/21/2023 Patient is seen in follow-up today continues to report significant shortness of breath and pain in multiple areas including the right chest where his chest tube is. Home medications reviewed and resumed as appropriate and patient is continued on Dilaudid and will resume [place] and his fentanyl patch. Follow-up chest x-ray today shows no significant change in pleural parenchymal opacity of the right lung base with slightly improved right apical pneumothorax. CT chest is ordered and pending at this time. Patient is continued on IV antibiotics in the form of Zosyn and vancomycin being added. Patient is afebrile with no reports of chest pain or palpitations. Patient continues on trach collar with a flow rate of 8 and FiO2 is 35%. Tolerating tube feeds thus far and will also add bowel regimen given he is on a number of different narcotics. 12/22/2023 Patient is seen and evaluated in follow-up maintained on trach collar and high flow oxygen with continued right chest tube. There is noted fluid collection on the CT imaging from yesterday and IR has been consulted possible pigtail catheter placement as it appears somewhat loculated. Present right-sided chest tube with minimal output noted per nursing staff. Patient is maintained on antibiotics and will consult infectious disease and appreciate input and recommendations. Cultures all remain pending thus far. Cytology is pending as well. Overall prognosis remains poor and guarded at this time. Patient wishes to remain full code. 12/23/2023 Patient seen and evaluated in follow-up status post pigtail catheter placement and CT surgery has been consulted. Patient to receive alteplase for loculated empyema noted on the right. Patient is continued on breathing inhalational treatments along with high flow oxygen via trach collar. Patient is reporting significant pain and will adjust medications appropriately. Had a lengthy discussion with the patient regarding overall CODE STATUS and patient wishes to remain full code does not currently want hospice. Discussed with daughter over the phone after discussing with patient about overall prognosis and treatment plan moving forward. Daughter feels he would benefit from rehab as all of his comorbidities have become more difficult to handle and she feels he is not safe to return home and manage his care himself. Case management is following and working with the patient. Will have PT/OT therapy evaluate the patient. Inf ectious disease following and patient is maintained on broad spec. 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 Patient may likely require IV antibiotics on discharge. Patient will require a PICC line and no staff available until Wednesday to have a PICC line placed. Patient is currently afebrile and denies chest pain or palpitations. Patient reports continued shortness of breath off with secretions. Patient tolerating tube feedings thus far and will continue on bowel regimen as well as patient is receiving IV narcotics. 12/24/2023 Patient is seen and evaluated in follow-up with multiple medical consultations following. Patient remains on trach collar 30% and reports no significant improvements in dyspnea although reports about the same. Patient continues with pigtail catheter currently receiving alteplase daily and chest x-rays with CT surgery following. Patient continues to have purulent drainage with cultures mentioned above with infectious disease following. Patient is continued on meropenem and vancomycin is discontinued. Patient continues on tube feeds and reports tolerating although feels for and reports not having a bowel movement over the last 5 days. Will obtain abdominal x-ray and continue bowel regimen. Recommend Dulcolax suppository and this was discussed with nursing at bedside. Patient is agreeable. Patient is continued on a number of pain medications which would make me concerned for constipation. Minimal bowel sounds noted. Patient denies abdominal pain but does report feeling full. Per nursing staff as well patient's insurance information and paperwork has been faxed with daughter at the bedside regarding continuation of [employer] insurance through his employer. Case management is following. Patient may require IV antibiotics on discharge and continued nursing care at an [facility]. Encouraged to increase activity as tolerated. 12/25/2023 Patient is sitting on side of bed. Awake alert and oriented 3. Unable to communicate due to trach collar with 40% FiO2. Patient had additional 5 cc through chest tube. No complaints of chest pain. Breathing status improving. Chest x-ray today showed right basilar pigtail pleural catheter terminates over the medial lung base. Small amount of gas in the chest wall adjacent to the tube. Similar amount of air within the right-sided pleural collection compatible with hydropneumothorax and empyema. Stable pleural-parenchymal o pacity in the right lung base and increased density in the medial left lung base. Laboratory data showed reviewed. Pulmonary is on board. 12/26/2023 Patient is sitting on side of bed. Awake alert and oriented x 3. Trach collar with 40% FiO2. No complaints of chest pain or worsening shortness of breath. Patient is having 400 cc fluid output from the pigtail catheter. Patient is afebrile otherwise. No nausea vomiting. CT chest was done today showed complex pleural collection seen previously is much improved with previously noted multiple air-fluid levels essentially resolving hydropneumothorax persisting. Persistent right perihilar cavitary lesion. Patient appears smaller in size and currently measures 2.7 cm in greatest dimension versus 4.3 cm. Laboratory data showed WBC 9.3 hemoglobin 8.0 and platelets 450 and MCV 103.9, sodium 142 potassium 3.6 chloride 106 bicarb is 33 BUN 14 and creatinine 0.599 and blood sugar is 78 and calcium 8.0. Pulmonary is on board. Patient on antibiotics meropenem. 12/27/2023 Patient is seen and evaluated in follow-up with multiple medical consultations following. Patient is continued on IV antibiotics with infectious disease following currently on meropenem and discussing possibly requiring IV antibiotic therapy on discharge. Patient does have a PICC line. Patient continues with right pigtail catheter currently receiving alteplase with CT surgery following as there continues to be purulent drainage noted. Discussing possible washout of the right lung. Patient continues on pain management as well as bowel regimen and will continue. Wean FiO2 as tolerated. Patient currently on 40% FiO2 trach collar. Patient is afebrile with no reports of worsening shortness of breath. Patient denying chest pain or palpitations. Patient is tolerating tube feedings and recommend to continue with head of the bed elevated 30 to 45 degrees at all times and monitoring for residuals. 12/28/2023 Patient is seen and evaluated in follow-up continues to be receiving alteplase via pigtail catheter on the right. Per nursing staff there has been minimal output noted and patient remains on IV antibiotics with infectious disease following. Plan is for 2 weeks of antibiotics outpatient. Pulmonary following as well maintained on breathing inhalational treatments and discussing with CT surgery about possible decortication as there is concern once the catheter is removed, it will fill up again and recur. Follow-up on chest x-ray in the a.m. Patient is currently afebrile with no reported chest pain or worsening shortness of breath. Patient is tolerating tube feeds and reports had a bowel movement a few days ago. Recommend to continue with bowel regimen daily as patient is receiving narcotic medication. Patient encouraged to increase activity as tolerated. Will have physical therapy evaluate the patient. Review of systems: Constitutional: No reports of fatigue, fever, or chills Cardiovascular: No reports of chest pain or palpitations Respiratory: reports of continued shortness of breath although stable and right chest wall discomfort. GI: No reports of nausea, vomiting, or diarrhea, reports having bowel movement 2 days ago but is passing gas : No reports of dysuria or retention Neurovascular: reports of generalized weakness All medications have been reviewed PHYSICAL EXAMINATION: Patient is sitting up in the bed, appears less anxious, awake alert and oriented. Thin built, emaciated, ill-appearing, elderly appearing, has tracheostomy currently maintained on oxygen with a trach collar 40%.. HEENT: Normocephalic. Neck is supple. Pupils reactive. Nostrils clear. Oral cavity is moist. Neck reveals no JVD, carotid bruits, or thyromegaly. CHEST EXAMINATION: Trachea is central. Symmetrical expansion. Bibasilar coarse sounds and crackles. Nonlabored breathing.. Right pigtail catheter noted minimal purulent drainage noted CARDIAC: S1, S2 muffled ABDOMEN: Soft. Thin, scaphoid bowel sounds hypoactive. No organomegaly. No abdominal bruits. PEG tube noted Extremities: reveal no edema. No clubbing or cyanosis Neurologically awake, alert, oriented x3. Able to move all extremities. No gross focal neurological deficits.. Diffusely weak Skin: No rash or skin lesions. Psychiatric: Cooperative. Non-suicidal Musculoskeletal: No joint swelling or deformity. Assessment: Acute large right-sided hydropneumothorax status post chest tube placement with decrease in size of the right-sided hydropneumothorax and partial reexpansion. 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 Patient had PET scan done in September 2023 showed persistent uptake in the posterior lateral right cord level compatible with neoplasm. Patient declined biopsy on previous admission recently Recent admission for from 11/19/2023 to 12/17/2023 postobstructive pneumonia and also CT evidence of lobular heterogenous mass and necrotic components in the right middle lobe. Status post bronchoscopy and biopsy. BAL cultures negative and biopsies nondiagnostic for malignancy. Hypothyroidism History of Graves' disease COPD Ongoing nicotine addiction DVT prophylaxis with heparin subcu GI prophylaxis Full code Plan: Patient is on humidified oxygen via trach collar with an FiO2 of 40% and oxygen is 11 L. Weaning as tolerated. Status post right-sided chest tube placement with suction due to hydropneumothorax. Chest x-ray shows some stable pneumothorax on the right and continues with a chest tube at this time. Right chest tube has been removed and patient continues with a pigtail catheter that was placed. CT surgery following receiving daily alteplase is continued purulent drainage is noted. Discussing possible decortication. Patient is being continued on IV antibiotics in the form of cefepime with infectious disease following. Procalcitonin level is 0.22 concerns of possible postobstructive pneumonia. 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 Patient will benefit from IV antibiotics on discharge. Patient does have a PICC line and will likely continue with 2 weeks of antibiotics on discharge Continue with breathing treatments Continue with pain management and bowel regimen. Patient with significant weakness as well as significant comorbidities will consult PT/OT and discuss further with case management regarding discharge planning once patient is stabilized. Family feels he is unable to care for himself and would benefit from ECF. Patient will require IV antibiotics on discharge given this empyema and extensive pneumonia. Due to multiple complex medical issues, overall prognosis is poor and guarded The impression and plan of care has been dictated by Nurse Ted Pract itioner as directed. Dr. Andreas MD I have performed a history and examination and MDM of this patient, discussed the same with the dictator, and agree with the dictator's assessment and plan as written ,documented as a scribe. Based on total visit time, I have performed more than 50% of the visit. Objective - Vital Signs Vital signs: Vital Signs Temp 98.0 F 12/28/23 12:00 Pulse 63 12/28/23 08:00 Resp 18 12/28/23 12:00 BP 92/56 12/28/23 12:00 Pulse Ox 92 L 12/28/23 12:00 FiO2 28 12/28/23 08:05 Intake & Output 12/27/23 12/28/23 12/28/23 18:59 06:59 18:59 Intake Total 120 Output Total 390 430 0 Balance -270 -430 0 Weight 71.5 kg 71.5 kg Intake: Oral 120 Output: Chest Tube Drainage 390 130 0 Chest Tube Right 390 130 0 Posterior Chest Urine 300 Other: Voiding Method Toilet Toilet Toilet Urinal Urinal Urinal - Labs CBC & Chem 7: 12/28/23 09:46 12/28/23 09:46 Labs: Abnormal Lab Results - Last 24 Hours (Table) 12/27/23 12/28/23 12/28/23 Range/Units 17:25 00:07 09:46 RBC 2.89 L (4.30-5.90) m/uL Hgb 8.7 L (13.0-17.5) gm/dL Hct 29.7 L (39.0-53.0) % MCV 102.9 H (80.0-100.0) fL MCHC 29.3 L (31.0-37.0) g/dL Plt Count 451 H (150-450) k/uL Neutrophils # 8.0 H (1.3-7.7) k/uL Lymphocytes # 0.6 L (1.0-4.8) k/uL Carbon Dioxide (22-30) mmol/L Creatinine (0.66-1.25) mg/dL POC Glucose (mg/dL) 127 H 128 H (70-110) mg/dL Calcium (8.4-10.2) mg/dL 12/28/23 12/28/23 Range/Units 09:46 12:01 RBC (4.30-5.90) m/uL Hgb (13.0-17.5) gm/dL Hct (39.0-53.0) % MCV (80.0-100.0) fL MCHC (31.0-37.0) g/dL Plt Count (150-450) k/uL Neutrophils # (1.3-7.7) k/uL Lymphocytes # (1.0-4.8) k/uL Carbon Dioxide 36 H (22-30) mmol/L Creatinine 0.59 L (0.66-1.25) mg/dL POC Glucose (mg/dL) 128 H (70-110) mg/dL Calcium 8.0 L (8.4-10.2) mg/dL Microbiology - Last 24 Hours (Table) 12/23/23 08:08 Gram Stain - Final Pleural Fluid Body Fluid Culture - Final Burkholderia cepacia complex
[2023-12-29 06:07] LABS: Glucose,Whole Blood 99 mg/dL (70-110)
--- NOTE | 2023-12-29 08:47 | XR ---
EXAMINATION TYPE: XR chest 1V portable DATE OF EXAM: 12/29/2023 COMPARISON: 12/25/2023 INDICATION: Pneumothorax TECHNIQUE: Single frontal view of the chest is obtained. FINDINGS: The heart size is normal. The pulmonary vasculature is normal. There is a loculated right lower lateral thorax. A small catheter is present within the inferior port ion and has been exchanged from the prior catheter. Pneumothorax size appears stable or minimally imp roved. There is however marked increased subcutaneous emphysema present along the right lateral chest . Mild infiltrate medially at the left base. Correlate for atelectasis. Right lower lobe infiltrate is present. Atelectasis pneumonia among other etiologies should be considered. IMPRESSION: 1. Stable to minimally improved right loculated pneumothorax. Catheter is within the inferior portion . 2 marked increased subcutaneous emphysema. 3. Bibasilar infiltrates. Follow-up recommended.
[2023-12-29 12:17] LABS: Glucose,Whole Blood 118 mg/dL (70-110)
--- NOTE | 2023-12-29 14:07 | P.PN ---
Subjective Progress Note Date: 12/29/23 Principal diagnosis: Acute hydropneumothorax/empyema with pneumothorax Patient is a 58-year-old white male with past medical history significant for known laryngeal cancer status post tracheostomy, PEG tube insertion, chronic ongoing tobacco dependence, hypothyroidism, Graves' disease, diverticulosis. Patient's laryngeal cancer was previously treated with chemoradiation. No current treatment. Patient recently had a PET scan done September, which revealed persistent uptake in the posterior lateral right cord level compatible with neoplasm. There was a right lower lobe pulmonary nodule measuring 1.2 cm with SUV value of 5.2, suspicious for either primary lung cancer versus metastasis of his laryngeal cancer. He had previously declined biopsy in the past, however, the patient had a recent hospital admission 12/09/2023 through 12/17/2023 for possible postobstructive pneumonia. His CT of the chest during that admission showed lobular heterogenous mass with internal cystic and necrotic components centered in the right middle lobe. Favored to represent interval progression of the patient's known malignant disease. He did have a bronchoscopy with BAL on 12/09/2023. Microbiology has remained negative. Biopsies taking were nondiagnostic for malignancy. Patient ended up going home on hospice care. While at home, he had episodes of hemoptysis and was very short of breath. He ended up calling 911. He has changed his decision to proceed with hospice. In fact, he wants to be full code. He is currently in the emergency room, room 1. He is sitting up in the stretcher, in no acute distress, he is currently on room air. He denies any fevers. Denies any chest pain. Denies trauma. Reports hemoptysis, unable to quantify how much. There is a trach collar lying in his lap set at 35%, however, he does not wish to wear this. Follow-up chest CT this admission shows interval development of a large right hydropneumothorax. There was also consolidative changes around the right pulmonary hilum thought to represent atelectasis with areas of cavitation in the area of the the previously described mass. There are retrained secretions predominantly within the right main bronchus, right lower lobe, and right middle lobe large airways. A right-sided chest tube was placed by the ER physician. This is currently hooked to continuous suction at 20 cm of H2O. No observable airleak. Approximately 450 mL of serosanguineous drainage in the collection chamber. A follow-up chest x-ray shows the right-sided chest tube in place, with a significant decrease in size of the right sided hydro and pneumothorax and partial reexpansion. CBC this admission, WBC count 16.9, hemoglobin 11, hematocrit 34.6, platelets 475. CMP this admission is unremarkable. Normal saline infusing at 75 mL/h. Patient was empirically started on Zosyn. Patient is hemodynamically stable. I saw this patient in the emergency department. The patient already had a right-sided chest tube in place. Output was noted. The fluid is rather cloudy. I suspect an underlying empyema/complicated pleural infection. I also reviewed the earlier CAT scan of the chest that was done back in November 2023. At that time, the patient had a masslike consolidation involving the right midlung area and this could have represented an area of lung abscess. Note that the bronchoscopy endobronchial lavage came back negative at that time.I repeated the chest x-ray from this afternoon and the right-sided chest tube is in place and there is a residual right-sided pneumothorax and there is persistent complex collection in the right lung compatible with his history of pulmonary infection/empyema. The patient is currently on a broad-spectrum antibiotic utilizing Zosyn. As far as the blood work, the procalcitonin level is at 0.22. Rest of the blood work was noted. He is clinically and hemodynamically stable with a pulse ox of 91% on room air oxygen. Communicating. He has a tracheostomy tube in place. On today's evaluation of 12/21/2023, the patient is being seen for a follow-up. Awaiting the pleural fluid analysis. Noted output from the chest tube is minimal and the patient has put out minimal amount of output since yesterday. Total amount of output has not been in the order of 500 cc since the patient arrived to the medical floor. Procalcitonin level is at 0.22. The white cell count is currently at 15.2 with a hemoglobin 10.5 and a platelet count of 5-66. The patient remains on Zosyn and vancomycin. Repeat chest x-ray was done today and it showed no significant interval change compared to yesterday. The chest tube is in good location. There is a very tiny right apical pneumothorax measuring approximately 6 mm in size. There is also pleural-parenchymal opacity in the right lung base that remains unchanged and obviously this needs to be further investigated by CAT scan of the chest and this will be ordered in the form of a noncontrast enhanced CAT scan to be done today. The patient is on room air oxygen. The patient has tracheostomy tube in place. The blood cultures are negative. Sputum samples also sent and the results are still pending for now. Pleural fluid analysis also pending. On today's evaluation of 12/22/2023, I am seeing the patient for a follow-up. The patient is currently on a trach collar with 10 L of oxygen with an FiO2 of 40%. He is calm and comfortable and is not having any significant respiratory distress. The pleural fluid analysis shows no microbial growth for now. Nevertheless, the fluid is an exudate with elevated LDH and protein and low sugar very much consistent with a complicated parapneumonic effusion/. I also repeated the CAT scan of the chest on this patient and this was a noncontrast CAT scan of the chest that was completed yesterday and shows some persistence in the right-sided pleural effusion in the posterior right lung base along with multiple air-fluid levels present. The chest tube is present anteriorly. Noted output from the chest tube has been minimal at this point in time. No evidence of any significant pneumothorax. Similar findings were seen on today's chest x- ray. Labs from today are still pending for now. Patient remains on a combination of Zosyn and vancomycin. I discussed the findings with the patient I also discussed the findings with interventional radiology. The plan is to put the pigtail catheter in the right lower lobe complex fluid collection as noted on the CAT scan of the chest. Meanwhile, the patient continues to receive enteral feeding for nutritional support. He is quite debilitated. On today's evaluation of 12/23/2023, the patient is being seen for a follow-up. Doing well, no specific complaints, on a trach collar with FiO2 of 40% 10 L oxy gen flow. White cell count is at 9.4 with a hemoglobin of 8.9. BUN 11 creatinine of 0.6 and sodium levels at 142. As mentioned yesterday, the pigtail catheter was inserted into the posterior right chest and approximately 900 cc of purulent material was aspirated. Cultures are still pending for now. Repeat chest x-ray was done today and the chest x-ray is showing pigtail catheter in the right lung base. The patient has a loculated right-sided pneumothorax in the lateral aspect of the right lower chest. The pleural-parenchymal opacity in the right lung base is improved. There is some increased density in the medial aspect of the left lung base. The right upper lobe is essentially clear at this point in time. Right-sided chest tube is also in place. There is no evidence of any air leak. No output from the right-sided chest tube. The sputum culture was positive for a combination of Klebsiella and Burhdolderia and the patient is still on a combination of Zosyn and vancomycin. Awaiting cultures from the pleural fluid. Awake and alert and communicating. Continues to receive enteral feeding for additional support. Case was discussed with cardiothoracic surgery. Infectious disease consultation has also been obtained regarding this ongoing empyema. The patient was kept on the same antibiotic coverage. On today's evaluation of 12/24/2023, the patient has no specific complaints. The right-sided chest that was notable to the pigtail catheter has been kept in place. Repeat chest x-ray from today showed essentially stable right-sided hydropneumothorax. The right total chest tube catheter is still in place. There is still some parenchymal pulmonary opacity in the right lung base. Nevertheless, the patient is receiving daily therapy administration and since yesterday, the patient has produced another 400 cc of purulent material through the pigtail catheter. 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 Vancomycin has been discontinued. Noted the sputum and the pleural fluid cultures came back positive for the same microorganism. Infectious disease on the case. The patient remains afebrile. WBC count is at 8.8 with a hemoglobin 8.4 and platelet count of 460. BUN is at 14 with a creatinine of 0.8 and a sodium levels at 141. Awake and alert and communicating. Continues to receive enteral feeding for respiratory support. Terms of his oxygenation currently is on a 40% trach collar. No interval worsening shortness of breath. On today's evaluation of 12/25/2023, I am seeing the patient for a follow-up. Since yesterday, the patient has another additional 500 cc through the chest tube. The patient remains on 40% trach collar. No interval worsening shortness of breath. Respiratory status remained stable. Pigtail catheter is in place. Catheter installation of tPA was done today. Based on today's chest x-ray, the findings are essentially similar with an area of consolidation in the right pos terior lung base with a stable right-sided hydropneumothorax. There is stable pleural-parenchymal opacity in the right lung base. The pigtail catheter is in good location. The patient continues to be on IV meropenem. At the same time, the patient experienced some GI upset. X-ray of the abdomen was done that showed nonspecific findings. Abdomen is nondistended. Tube feeds were placed on hold for yesterday and this will be restarted at a lower rate. On today's evaluation of 12/26/2023, the patient is doing well. Remains on a 40% trach collar. No respiratory distress. No fever or chills. Remains on IV meropenem. Output from the pigtail catheter has been noted and the patient has produced approximately 400 cc of output over the past 24 hours. A follow-up CAT scan of the chest was done without contrast this morning and a CAT scan of the chest showed a significant improvement in the previously described multi air- fluid level and there is improvement in the right-sided hydropneumothorax although there is some residual pneumothorax along the right lateral posterior chest. There is also some perihilar cavitary lesions. Lesions have decreased in size and currently measuring up to 2.7 cm in dimension. Tracheostomy is still in place. The pigtail catheter is in a good location. The right-sided hydropneumothorax is dropped from 17 to 3 cm meter in size. There is emphysema tous changes with paraseptal emphysema in the upper lobes bilaterally.The white cell count is at 9.3 with a hemoglobin of 8 and a platelet count of 450. BUN is at 40 with a creatinine of 0.9 and sodium levels at 142. Patient was reevaluated today on 12/27/2023, patient remains on 40% trach collar, continues to have chest tube in place, remains on antibiotics as per infectious disease, presently on Merrem. Patient is being treated for empyema and hydropneumothorax. Labs including CBC and basic metabolic profile are normal patient seems to be comfortable, I believe infectious disease is planning treatment for at least 2 weeks for his empyema using Merrem. Patient does have a PICC line in place, wondering if this could be done at home but I do not believe the chest tube is ready to be removed yet, continues to drain, and the drainage is still purulent. Continues to have some pneumothorax but no airleak noted Reevaluate today on 12/28/2023, patient remains on 40% trach collar. Continues to have right-sided chest tube/pigtail catheter in place, continues to drain however the drainage is becoming minimal. Last CT of the chest did show evidence of hydropneumothorax, updated thoracic surgery on the case, apparently Dr. Lubin is aware of the case, and he has no plans for decortication will have thoracic surgery evaluate the patient again, but over the phone no plans for decortication. In the meantime the patient is receiving antibiotics, and the plan is to give him 2 full weeks of IV antibiotics. Patient does not seem to be in distress, however I am quite concerned that once we remove the pigtail catheter, the fluid is going to build up again, and the patient may have a bit of a trapped lung. Was reevaluated today on 12/29/2023, patient continues to have pigtail catheter in place, continues to have some purulent secretions out of the pigtail catheter/right pleural space. Surgery is yet to decide on whether the patient would benefit from decortication. Patient seems to have a loculated right-sided pneumothorax and what seems to be a right trapped lung. Patient had multiple lytic instillation in the right pleural space, chest x-ray today showed improved in the loculation/loculated pneumothorax, and he continues to have subcutaneous emphysema with bibasilar infiltrates. WBC count is 9.2 hemoglobin is 8.7 basic metabolic profile is normal bicarb is 36, clinically the patient is feeling better remains on antibiotics as per ID on the case, still on Merrem. Objective - Vital Signs Vital signs: Vital Signs Temp 98.0 F 12/29/23 12:00 Pulse 88 12/29/23 12:00 Resp 20 12/29/23 12:00 BP 95/56 12/29/23 12:00 Pulse Ox 94 L 12/29/23 12:00 FiO2 28 12/29/23 09:52 Intake & Output 12/28/23 12/29/23 12/29/23 18:59 06:59 18:59 Output Total 0 40 0 Balance 0 -40 0 Weight 71.5 kg 64.2 kg Output: Chest Tube Drainage 0 40 0 Chest Tube Right 0 40 0 Posterior Chest Other: Voiding Method Toilet Toilet Toilet Urinal Urinal Urinal - Exam GENERAL EXAM: 58-year-old white male on 40% trach collar, not in distress HEAD: Normocephalic and atraumatic EYES: Normal reaction of pupils, equal size. NOSE: Clear with pink turbinates. THROAT: No erythema or exudates. NECK: No masses, no JVD. Tracheostomy insertion site clean and dry. CHEST/lungs: Diminished breath sounds at the bases, pigtail catheter is noted and draining purulent and serosanguineous fluid. Minimal air leak noted CVS: S1 and S2 normal with no audible murmur, regular rhythm. No extra heart sounds ABDOMEN: No hepatosplenomegaly, active bowel sounds, no guarding or rigidity. PEG tube site clean and dry. SPINE: No scoliosis or deformity SKIN: No rashes CENTRAL NERVOUS SYSTEM: Alert oriented x 3 EXTREMITIES: No clubbing edema or cyanosis - Labs CBC & Chem 7: 12/28/23 09:46 12/28/23 09:46 Labs: Abnormal Lab Results - Last 24 Hours (Table) 12/28/23 12/29/23 12/29/23 Range/Units 20:03 00:13 12:16 POC Glucose (mg/dL) 132 H 111 H 118 H (70-110) mg/dL Assessment and Plan Assessment: Impression: Acute empyema with acute right hydropneumothorax requiring drainage via pigtail catheter, cultures positive for burkhoderia cepacia complex Acute hemoptysis, resolved Acute on chronic hypoxic respiratory failure presently on 40% trach collar History of laryngeal cancer status post chemoradiation and tracheostomy History of PEG tube insertion Underlying COPD Hypothyroidism Chronic ongoing tobacco dependence Recommendation: Continue pigtail catheter in place Continue antibiotics Chest x-ray today was reviewed continues to have a loculated pneumothorax but overall I believe there is improvement Continue IV Merrem Continue oxygen via trach collar Continue nutritional support Prognosis remains very guarded Will continue to follow Time with Patient: Less than 30
--- NOTE | 2023-12-29 17:55 | P.PN ---
Subjective Progress Note Date: 12/29/23 Principal diagnosis: Reason for follow-up is pneumonia/empyema Patient is a 58-year male with a history of squamous cell carcinoma head and neck s/p trach and PEG recent CT chest with heterogeneous mass right middle lobe s/p bronchoscopy culture negative presenting back to the hospital with worsening shortness of breath with a repeat CT shows large right hydropneumothorax s/p chest tube placement and concerning for empyema. On today's evaluation that is 12/29/2023, Patient is afebrile patient is currently on 5 L trach collar and denies having any shortness of breath, the patient denies any chest pain or worsening cough, the patient denies any nausea vomiting did not have any abdominal pain and no diarrhea, feeling better. No new labs has been repeated today Objective - Vital Signs Vital signs: Vital Signs Temp 97.7 F 12/29/23 16:00 Pulse 87 12/29/23 16:00 Resp 20 12/29/23 16:00 BP 96/62 12/29/23 16:00 Pulse Ox 93 L 12/29/23 16:00 FiO2 28 12/29/23 09:52 Intake & Output 12/28/23 12/29/23 12/29/23 18:59 06:59 18:59 Output Total 0 40 0 Balance 0 -40 0 Weight 71.5 kg 64.2 kg Output: Chest Tube Drainage 0 40 0 Chest Tube Right 0 40 0 Posterior Chest Other: Voiding Method Toilet Toilet Toilet Urinal Urinal Urinal - Exam GENERAL DESCRIPTION: Middle-age male up in bed in no distress RESPIRATORY SYSTEM: Unlabored breathing , decreased breath sounds at bases HEART: S1 S2 regular rate and rhythm , ABDOMEN: Soft , no tenderness EXTREMITIES: No edema feet - Labs CBC & Chem 7: 12/28/23 09:46 12/28/23 09:46 Labs: Abnormal Lab Results - Last 24 Hours (Table) 12/28/23 12/29/23 12/29/23 Range/Units 20:03 00:13 12:16 POC Glucose (mg/dL) 132 H 111 H 118 H (70-110) mg/dL Assessment and Plan (1) Empyema Current Visit: Yes Status: Acute Code(s): J86.9 - PYOTHORAX WITHOUT FISTULA SNOMED Code(s): 682148760 (2) Leukocytosis Current Visit: Yes Status: Acute Code(s): D72.829 - ELEVATED WHITE BLOOD CELL COUNT, UNSPECIFIED SNOMED Code(s): 872404011 (3) Pneumonia Current Visit: Yes Status: Acute Priority: High Code(s): J18.9 - PNEUMONIA, UNSPECIFIED ORGANISM SNOMED Code(s): 840292524 Plan: 1patient presenting to the hospital with increasing shortness of breath and hemoptysis in this patient who did have a CT of the chest with evidence of moderate right effusion with multiple air-fluid level concerning for empyema status post chest tube placement 2-the patient sputum as well as sputum culture did grew Burkholderia cepacia that is intermediate to ceftazidime sensitive to meropenem 3-patient is afebrile patient did have normalization of the white count, 4-patient to continue the meropenem awaiting reevaluation by CT surgery and consideration for possible surgery Dictation was produced using [employer] dictation software. please excuse any gramm atical, word or spelling errors. Time with Patient: Less than 30
[2023-12-29 18:26] LABS: Glucose,Whole Blood 128 mg/dL (70-110)
[2023-12-30 00:33] LABS: Glucose,Whole Blood 101 mg/dL (70-110)
[2023-12-30 06:16] LABS: Glucose,Whole Blood 108 mg/dL (70-110)
--- NOTE | 2023-12-30 06:22 | P.PN ---
Subjective Progress Note Date: 12/29/23 Patient is a 58-year-old male with a past medical history of laryngeal cancer status post chemoradiation in July 2023 last tracheostomy and PEG tube placement, COPD, hypothyroidism, history of Graves' disease and currently everyday smoker presents to ER with worsening shortness of breath and hemopty sis. Patient was recently admitted to the hospital from 12/10/2023 to 12/17/2023 and was treated for postoperative pneumonia and COPD. Patient was discharged under hospice care. Patient states that he has been having copious amounts of secretions from the tracheostomy. Denies any fever. No nausea or vomiting. Patient had recent PET scan in September 2023 which showed persistent uptake in the posterior lateral right vocal cord compatible with neoplasm. Patient previously declined biopsy. Chest x-ray on admission showed increasing lucency throughout the right lung concerning for pneumothorax. Small pleural effusion may also be present. CT chest showed interval development of large right pneumothorax with large pneumothorax and small heterogenous complex right pleural effusion. There is consolidation changes around the right pulmonary hilum thought to represent atelectasis in the area of cavitation possibly secondary to prior mass. Retained secretions predominantly within the right main bronchus, right lower and right middle lobe large airways. Correlate for retained secretions. Co nsider bronchoscopy. Chest tube was placed by ER physician. Repeat chest x-ray showed right-sided c hest tube in place with significant decrease in size of right-sided hydro pneumothorax and partial reexpansion. Laboratory data showed WBC 16.9 hemoglobin 11.0 and platelets 475 Sodium 134 potassium 5.1 chloride 105 bicarb is 22 BUN 19 and creatinine 0.41 and blood sugar 64 albumin 2.6 and procalcitonin level is elevated to 0.22 12/21/2023 Patient is seen in follow-up today continues to report significant shortness of breath and pain in multiple areas including the right chest where his chest tube is. Home medications reviewed and resumed as appropriate and patient is continued on Dilaudid and will resume [place] and his fentanyl patch. Follow-up chest x-ray today shows no significant change in pleural parenchymal opacity of the right lung base with slightly improved right apical pneumothorax. CT chest is ordered and pending at this time. Patient is continued on IV antibiotics in the form of Zosyn and vancomycin being added. Patient is afebrile with no reports of chest pain or palpitations. Patient continues on trach collar with a flow rate of 8 and FiO2 is 35%. Tolerating tube feeds thus far and will also add bowel regimen given he is on a number of different narcotics. 12/22/2023 Patient is seen and evaluated in follow-up maintained on trach collar and high flow oxygen with continued right chest tube. There is noted fluid collection on the CT imaging from yesterday and IR has been consulted possible pigtail catheter placement as it appears somewhat loculated. Present right-sided chest tube with minimal output noted per nursing staff. Patient is maintained on antibiotics and will consult infectious disease and appreciate input and recommendations. Cultures all remain pending thus far. Cytology is pending as well. Overall prognosis remains poor and guarded at this time. Patient wishes to remain full code. 12/23/2023 Patient seen and evaluated in follow-up status post pigtail catheter placement and CT surgery has been consulted. Patient to receive alteplase for loculated empyema noted on the right. Patient is continued on breathing inhalational treatments along with high flow oxygen via trach collar. Patient is reporting significant pain and will adjust medications appropriately. Had a lengthy discussion with the patient regarding overall CODE STATUS and patient wishes to remain full code does not currently want hospice. Discussed with daughter over the phone after discussing with patient about overall prognosis and treatment plan moving forward. Daughter feels he would benefit from rehab as all of his comorbidities have become more difficult to handle and she feels he is not safe to return home and manage his care himself. Case management is following and working with the patient. Will have PT/OT therapy evaluate the patient. Inf ectious disease following and patient is maintained on broad spec. 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 Patient may likely require IV antibiotics on discharge. Patient will require a PICC line and no staff available until Wednesday to have a PICC line placed. Patient is currently afebrile and denies chest pain or palpitations. Patient reports continued shortness of breath off with secretions. Patient tolerating tube feedings thus far and will continue on bowel regimen as well as patient is receiving IV narcotics. 12/24/2023 Patient is seen and evaluated in follow-up with multiple medical consultations following. Patient remains on trach collar 30% and reports no significant improvements in dyspnea although reports about the same. Patient continues with pigtail catheter currently receiving alteplase daily and chest x-rays with CT surgery following. Patient continues to have purulent drainage with cultures mentioned above with infectious disease following. Patient is continued on meropenem and vancomycin is discontinued. Patient continues on tube feeds and reports tolerating although feels for and reports not having a bowel movement over the last 5 days. Will obtain abdominal x-ray and continue bowel regimen. Recommend Dulcolax suppository and this was discussed with nursing at bedside. Patient is agreeable. Patient is continued on a number of pain medications which would make me concerned for constipation. Minimal bowel sounds noted. Patient denies abdominal pain but does report feeling full. Per nursing staff as well patient's insurance information and paperwork has been faxed with daughter at the bedside regarding continuation of [employer] insurance through his employer. Case management is following. Patient may require IV antibiotics on discharge and continued nursing care at an [facility]. Encouraged to increase activity as tolerated. 12/25/2023 Patient is sitting on side of bed. Awake alert and oriented 3. Unable to communicate due to trach collar with 40% FiO2. Patient had additional 5 cc through chest tube. No complaints of chest pain. Breathing status improving. Chest x-ray today showed right basilar pigtail pleural catheter terminates over the medial lung base. Small amount of gas in the chest wall adjacent to the tube. Similar amount of air within the right-sided pleural collection compatible with hydropneumothorax and empyema. Stable pleural-parenchymal o pacity in the right lung base and increased density in the medial left lung base. Laboratory data showed reviewed. Pulmonary is on board. 12/26/2023 Patient is sitting on side of bed. Awake alert and oriented x 3. Trach collar with 40% FiO2. No complaints of chest pain or worsening shortness of breath. Patient is having 400 cc fluid output from the pigtail catheter. Patient is afebrile otherwise. No nausea vomiting. CT chest was done today showed complex pleural collection seen previously is much improved with previously noted multiple air-fluid levels essentially resolving hydropneumothorax persisting. Persistent right perihilar cavitary lesion. Patient appears smaller in size and currently measures 2.7 cm in greatest dimension versus 4.3 cm. Laboratory data showed WBC 9.3 hemoglobin 8.0 and platelets 450 and MCV 103.9, sodium 142 potassium 3.6 chloride 106 bicarb is 33 BUN 14 and creatinine 0.599 and blood sugar is 78 and calcium 8.0. Pulmonary is on board. Patient on antibiotics meropenem. 12/27/2023 Patient is seen and evaluated in follow-up with multiple medical consultations following. Patient is continued on IV antibiotics with infectious disease following currently on meropenem and discussing possibly requiring IV antibiotic therapy on discharge. Patient does have a PICC line. Patient continues with right pigtail catheter currently receiving alteplase with CT surgery following as there continues to be purulent drainage noted. Discussing possible washout of the right lung. Patient continues on pain management as well as bowel regimen and will continue. Wean FiO2 as tolerated. Patient currently on 40% FiO2 trach collar. Patient is afebrile with no reports of worsening shortness of breath. Patient denying chest pain or palpitations. Patient is tolerating tube feedings and recommend to continue with head of the bed elevated 30 to 45 degrees at all times and monitoring for residuals. 12/28/2023 Patient is seen and evaluated in follow-up continues to be receiving alteplase via pigtail catheter on the right. Per nursing staff there has been minimal output noted and patient remains on IV antibiotics with infectious disease following. Plan is for 2 weeks of antibiotics outpatient. Pulmonary following as well maintained on breathing inhalational treatments and discussing with CT surgery about possible decortication as there is concern once the catheter is removed, it will fill up again and recur. Follow-up on chest x-ray in the a.m. Patient is currently afebrile with no reported chest pain or worsening shortness of breath. Patient is tolerating tube feeds and reports had a bowel movement a few days ago. Recommend to continue with bowel regimen daily as patient is receiving narcotic medication. Patient encouraged to increase activity as tolerated. Will have physical therapy evaluate the patient. 12/29/2023 Patient is seen in follow-up this morning continues with right pigtail catheter and per patient overnight there was copious amounts of drainage noted and patient has been receiving alteplase administrations. Pulmonary following discussing with CT surgery regarding possible decortication and awaiting reevaluation by CT surgery. Patient maintained on antibiotics with infectious disease following and will continue. Patient is concerned of going home continued infection and becoming more severe and requiring hospitalization again. Patient lives alone and unsure if he will be able to handle all this. Recommend ECF on discharge. Patient is afebrile and denies chest pain other than at the chest tube site with no palpitations. Patient denying worsening shortness of breath. Review of systems: Constitutional: No reports of fatigue, fever, or chills Cardiovascular: No reports of chest pain or palpitations Respiratory: reports of continued shortness of breath although stable and right chest wall discomfort. GI: No reports of nausea, vomiting, or diarrhea, reports having bowel movement and passing gas : No reports of dysuria or retention Neurovascular: reports of generalized weakness All medications have been reviewed PHYSICAL EXAMINATION: Patient is sitting up in the bed, appears less anxious, awake alert and oriented. Thin built, emaciated, ill-appearing, elderly appearing, has tracheos willis currently maintained on oxygen with a trach collar 40%.. HEENT: Normocephalic. Neck is supple. Pupils reactive. Nostrils clear. Oral cavity is moist. Neck reveals no JVD, carotid bruits, or thyromegaly. CHEST EXAMINATION: Trachea is central. Symmetrical expansion. Bibasilar coarse sounds and crackles. Nonlabored breathing.. Right pigtail catheter noted minimal purulent drainage noted CARDIAC: S1, S2 muffled ABDOMEN: Soft. Thin, scaphoid bowel sounds hypoactive. No organomegaly. No a bdominal bruits. PEG tube noted Extremities: reveal no edema. No clubbing or cyanosis Neurologically awake, alert, oriented x3. Able to move all extremities. No gross focal neurological deficits.. Diffusely weak Skin: No rash or skin lesions. Psychiatric: Cooperative. Non-suicidal Musculoskeletal: No joint swelling or deformity. Assessment: Acute large right-sided hydropneumothorax status post chest tube placement with decrease in size of the right-sided hydropneumothorax and partial reexpansion. 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 Patient had PET scan done in September 2023 showed persistent uptake in the posterior lateral right cord level compatible with neoplasm. Patient declined biopsy on previous admission recently Recent admission for from 11/19/2023 to 12/17/2023 postobstructive pneumonia and al so CT evidence of lobular heterogenous mass and necrotic components in the right middle lobe. Status post bronchoscopy and biopsy. BAL cultures negative and biopsies nondiagnostic for malignancy. Hypothyroidism History of Graves' disease COPD Ongoing nicotine addiction DVT prophylaxis with heparin subcu GI prophylaxis Full code Plan: Patient is on humidified oxygen via trach collar with an FiO2 of 40% and oxygen is 11 L. Weaning as tolerated. Status post right-sided chest tube placement wi th suction due to hydropneumothorax. Chest x-ray shows some stable pneumothorax on the right and continues with a chest tube at this time. Right chest tube has been removed and patient continues with a pigtail catheter that was placed. CT surgery instilling daily alteplase is continued purulent drainage is noted. Discussing possible decortication. Patient is being continued on IV antibiotics in the form of cefepime with infectious disease following. Procalcitonin level is 0.22 concerns of possible postobstructive pneumonia. 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 Patient will benefit from IV antibiotics on discharge. Patient does have a PICC line and will likely continue with 2 weeks of antibiotics on discharge Continue with breathing treatments Continue with pain management and bowel regimen. Patient with significant weakness as well as significant comorbidities will consult PT/OT and discuss further with case management regarding discharge planning once patient is stabilized. Family feels he is unable to care for himself and would benefit from ECF. Patient will require IV antibiotics on discharge given this empyema and extensive pneumonia. Due to multiple complex medical issues, overall prognosis is poor and guarded The impression and plan of care has been dictated by Virginie Urbina, Nurse Practitioner as directed. Dr. Andreas MD I have performed a history and examination and MDM of this patient, discussed the same with the dictator, and agree with the dictator's assessment and plan as written ,documented as a scribe. Based on total visit time, I have performed more than 50% of the visit. Objective - Vital Signs Vital signs: Vital Signs Temp 97.5 F L 12/30/23 04:00 Pulse 66 12/30/23 04:00 Resp 18 12/30/23 04:00 BP 94/56 12/30/23 04:00 Pulse Ox 95 12/30/23 04:00 FiO2 28 12/29/23 22:00 Intake & Output 12/29/23 12/29/23 12/30/23 06:59 18:59 06:59 Output Total 40 110 80 Balance -40 -110 -80 Weight 64.2 kg Output: Chest Tube Drainage 40 110 80 Chest Tube Right 40 110 80 Posterior Chest Other: Voiding Method Toilet Toilet Toilet Urinal Urinal Urinal - Labs CBC & Chem 7: 12/28/23 09:46 12/28/23 09:46 Labs: Abnormal Lab Results - Last 24 Hours (Table) 12/29/23 12/29/23 Range/Units 12:16 18:24 POC Glucose (mg/dL) 118 H 128 H (70-110) mg/dL
[2023-12-30 10:42] LABS: Basophils % (A) 0 %; Eosinophils # (A) 0.1 k/uL (0-0.7); Eosinophils % (A) 1 %; HCT 28.4 % (39.0-53.0); HGB 8.3 gm/dL (13.0-17.5); Hypochromasia Marked; Lymphocytes # (A) 0.4 k/uL (1.0-4.8); Lymphocytes % (A) 8 %; MCH 30.2 pg (25.0-35.0); MCHC 29.2 g/dL (31.0-37.0); MCV 103.7 fL (80.0-100.0); Macrocytosis Moderate; Mean Platelet Volume 8.2; Monocytes # (A) 0.2 k/uL (0-1.0); Monocytes % (A) 3 %; Neutrophils # (A) 4.6 k/uL (1.3-7.7); Neutrophils % (A) 86 %; Platelet Count 352 k/uL (150-450); RBC 2.74 m/uL (4.30-5.90); WBC 5.3 k/uL (3.8-10.6)
[2023-12-30 11:26] VITALS: BMI 21.7
[2023-12-30 11:33] LABS: Glucose,Whole Blood 101 mg/dL (70-110)
[2023-12-30 11:53] LABS: African American GFR (CKD) >90 (>60 ml/min/1.73 sqM); Blood Urea Nitrogen 19 mg/dL (9-20); Chloride 103 mmol/L (98-107); Glucose 103 mg/dL (74-99); Non-African American GFR(CKD) >90 (>60 ml/min/1.73 sqM); Potassium 3.8 mmol/L (3.5-5.1); Sodium 139 mmol/L (137-145)
[2023-12-30 12:06] LABS: Anion Gap 2 mmol/L
[2023-12-30 12:42] LABS: Carbon Dioxide 34 mmol/L (22-30)
--- NOTE | 2023-12-30 14:29 | P.PN ---
Subjective Progress Note Date: 12/30/23 Principal diagnosis: Acute hydropneumothorax/empyema with pneumothorax Patient is a 58-year-old white male with past medical history significant for known laryngeal cancer status post tracheostomy, PEG tube insertion, chronic ongoing tobacco dependence, hypothyroidism, Graves' disease, diverticulosis. Patient's laryngeal cancer was previously treated with chemoradiation. No current treatment. Patient recently had a PET scan done September, which revealed persistent uptake in the posterior lateral right cord level compatible with neoplasm. There was a right lower lobe pulmonary nodule measuring 1.2 cm with SUV value of 5.2, suspicious for either primary lung cancer versus metastasis of his laryngeal cancer. He had previously declined biopsy in the past, however, the patient had a recent hospital admission 12/09/2023 through 12/17/2023 for possible postobstructive pneumonia. His CT of the chest during that admission showed lobular heterogenous mass with internal cystic and necrotic components centered in the right middle lobe. Favored to represent interval progression of the patient's known malignant disease. He did have a bronchoscopy with BAL on 12/09/2023. Microbiology has remained negative. Biopsies taking were nondiagnostic for malignancy. Patient ended up going home on hospice care. While at home, he had episodes of hemoptysis and was very short of breath. He ended up calling 911. He has changed his decision to proceed with hospice. In fact, he wants to be full code. He is currently in the emergency room, room 1. He is sitting up in the stretcher, in no acute distress, he is currently on room air. He denies any fevers. Denies any chest pain. Denies trauma. Reports hemoptysis, unable to quantify how much. There is a trach collar lying in his lap set at 35%, however, he does not wish to wear this. Follow-up chest CT this admission shows interval development of a large right hydropneumothorax. There was also consolidative changes around the right pulmonary hilum thought to represent atelectasis with areas of cavitation in the area of the the previously described mass. There are retrained secretions predominantly within the right main bronchus, right lower lobe, and right middle lobe large airways. A right-sided chest tube was placed by the ER physician. This is currently hooked to continuous suction at 20 cm of H2O. No observable airleak. Approximately 450 mL of serosanguineous drainage in the collection chamber. A follow-up chest x-ray shows the right-sided chest tube in place, with a significant decrease in size of the right sided hydro and pneumothorax and partial reexpansion. CBC this admission, WBC count 16.9, hemoglobin 11, hematocrit 34.6, platelets 475. CMP this admission is unremarkable. Normal saline infusing at 75 mL/h. Patient was empirically started on Zosyn. Patient is hemodynamically stable. I saw this patient in the emergency department. The patient already had a right-sided chest tube in place. Output was noted. The fluid is rather cloudy. I suspect an underlying empyema/complicated pleural infection. I also reviewed the earlier CAT scan of the chest that was done back in November 2023. At that time, the patient had a masslike consolidation involving the right midlung area and this could have represented an area of lung abscess. Note that the bronchoscopy endobronchial lavage came back negative at that time.I repeated the chest x-ray from this afternoon and the right-sided chest tube is in place and there is a residual right-sided pneumothorax and there is persistent complex collection in the right lung compatible with his history of pulmonary infection/empyema. The patient is currently on a broad-spectrum antibiotic utilizing Zosyn. As far as the blood work, the procalcitonin level is at 0.22. Rest of the blood work was noted. He is clinically and hemodynamically stable with a pulse ox of 91% on room air oxygen. Communicating. He has a tracheostomy tube in place. On today's evaluation of 12/21/2023, the patient is being seen for a follow-up. Awaiting the pleural fluid analysis. Noted output from the chest tube is minimal and the patient has put out minimal amount of output since yesterday. Total amount of output has not been in the order of 500 cc since the patient arrived to the medical floor. Procalcitonin level is at 0.22. The white cell count is currently at 15.2 with a hemoglobin 10.5 and a platelet count of 5-66. The patient remains on Zosyn and vancomycin. Repeat chest x-ray was done today and it showed no significant interval change compared to yesterday. The chest tube is in good location. There is a very tiny right apical pneumothorax measuring approximately 6 mm in size. There is also pleural-parenchymal opacity in the right lung base that remains unchanged and obviously this needs to be further investigated by CAT scan of the chest and this will be ordered in the form of a noncontrast enhanced CAT scan to be done today. The patient is on room air oxygen. The patient has tracheostomy tube in place. The blood cultures are negative. Sputum samples also sent and the results are still pending for now. Pleural fluid analysis also pending. On today's evaluation of 12/22/2023, I am seeing the patient for a follow-up. The patient is currently on a trach collar with 10 L of oxygen with an FiO2 of 40%. He is calm and comfortable and is not having any significant respiratory distress. The pleural fluid analysis shows no microbial growth for now. Nevertheless, the fluid is an exudate with elevated LDH and protein and low sugar very much consistent with a complicated parapneumonic effusion/. I also repeated the CAT scan of the chest on this patient and this was a noncontrast CAT scan of the chest that was completed yesterday and shows some persistence in the right-sided pleural effusion in the posterior right lung base along with multiple air-fluid levels present. The chest tube is present anteriorly. Noted output from the chest tube has been minimal at this point in time. No evidence of any significant pneumothorax. Similar findings were seen on today's chest x- ray. Labs from today are still pending for now. Patient remains on a combination of Zosyn and vancomycin. I discussed the findings with the patient I also discussed the findings with interventional radiology. The plan is to put the pigtail catheter in the right lower lobe complex fluid collection as noted on the CAT scan of the chest. Meanwhile, the patient continues to receive enteral feeding for nutritional support. He is quite debilitated. On today's evaluation of 12/23/2023, the patient is being seen for a follow-up. Doing well, no specific complaints, on a trach collar with FiO2 of 40% 10 L oxy gen flow. White cell count is at 9.4 with a hemoglobin of 8.9. BUN 11 creatinine of 0.6 and sodium levels at 142. As mentioned yesterday, the pigtail catheter was inserted into the posterior right chest and approximately 900 cc of purulent material was aspirated. Cultures are still pending for now. Repeat chest x-ray was done today and the chest x-ray is showing pigtail catheter in the right lung base. The patient has a loculated right-sided pneumothorax in the lateral aspect of the right lower chest. The pleural-parenchymal opacity in the right lung base is improved. There is some increased density in the medial aspect of the left lung base. The right upper lobe is essentially clear at this point in time. Right-sided chest tube is also in place. There is no evidence of any air leak. No output from the right-sided chest tube. The sputum culture was positive for a combination of Klebsiella and Burhdolderia and the patient is still on a combination of Zosyn and vancomycin. Awaiting cultures from the pleural fluid. Awake and alert and communicating. Continues to receive enteral feeding for additional support. Case was discussed with cardiothoracic surgery. Infectious disease consultation has also been obtained regarding this ongoing empyema. The patient was kept on the same antibiotic coverage. On today's evaluation of 12/24/2023, the patient has no specific complaints. The right-sided chest that was notable to the pigtail catheter has been kept in place. Repeat chest x-ray from today showed essentially stable right-sided hydropneumothorax. The right total chest tube catheter is still in place. There is still some parenchymal pulmonary opacity in the right lung base. Nevertheless, the patient is receiving daily therapy administration and since yesterday, the patient has produced another 400 cc of purulent material through the pigtail catheter. 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 Vancomycin has been discontinued. Noted the sputum and the pleural fluid cultures came back positive for the same microorganism. Infectious disease on the case. The patient remains afebrile. WBC count is at 8.8 with a hemoglobin 8.4 and platelet count of 460. BUN is at 14 with a creatinine of 0.8 and a sodium levels at 141. Awake and alert and communicating. Continues to receive enteral feeding for respiratory support. Terms of his oxygenation currently is on a 40% trach collar. No interval worsening shortness of breath. On today's evaluation of 12/25/2023, I am seeing the patient for a follow-up. Since yesterday, the patient has another additional 500 cc through the chest tube. The patient remains on 40% trach collar. No interval worsening shortness of breath. Respiratory status remained stable. Pigtail catheter is in place. Catheter installation of tPA was done today. Based on today's chest x-ray, the findings are essentially similar with an area of consolidation in the right pos terior lung base with a stable right-sided hydropneumothorax. There is stable pleural-parenchymal opacity in the right lung base. The pigtail catheter is in good location. The patient continues to be on IV meropenem. At the same time, the patient experienced some GI upset. X-ray of the abdomen was done that showed nonspecific findings. Abdomen is nondistended. Tube feeds were placed on hold for yesterday and this will be restarted at a lower rate. On today's evaluation of 12/26/2023, the patient is doing well. Remains on a 40% trach collar. No respiratory distress. No fever or chills. Remains on IV meropenem. Output from the pigtail catheter has been noted and the patient has produced approximately 400 cc of output over the past 24 hours. A follow-up CAT scan of the chest was done without contrast this morning and a CAT scan of the chest showed a significant improvement in the previously described multi air- fluid level and there is improvement in the right-sided hydropneumothorax although there is some residual pneumothorax along the right lateral posterior chest. There is also some perihilar cavitary lesions. Lesions have decreased in size and currently measuring up to 2.7 cm in dimension. Tracheostomy is still in place. The pigtail catheter is in a good location. The right-sided hydropneumothorax is dropped from 17 to 3 cm meter in size. There is emphysema tous changes with paraseptal emphysema in the upper lobes bilaterally.The white cell count is at 9.3 with a hemoglobin of 8 and a platelet count of 450. BUN is at 40 with a creatinine of 0.9 and sodium levels at 142. Patient was reevaluated today on 12/27/2023, patient remains on 40% trach collar, continues to have chest tube in place, remains on antibiotics as per infectious disease, presently on Merrem. Patient is being treated for empyema and hydropneumothorax. Labs including CBC and basic metabolic profile are normal patient seems to be comfortable, I believe infectious disease is planning treatment for at least 2 weeks for his empyema using Merrem. Patient does have a PICC line in place, wondering if this could be done at home but I do not believe the chest tube is ready to be removed yet, continues to drain, and the drainage is still purulent. Continues to have some pneumothorax but no airleak noted Reevaluate today on 12/28/2023, patient remains on 40% trach collar. Continues to have right-sided chest tube/pigtail catheter in place, continues to drain however the drainage is becoming minimal. Last CT of the chest did show evidence of hydropneumothorax, updated thoracic surgery on the case, apparently Dr. Lubin is aware of the case, and he has no plans for decortication will have thoracic surgery evaluate the patient again, but over the phone no plans for decortication. In the meantime the patient is receiving antibiotics, and the plan is to give him 2 full weeks of IV antibiotics. Patient does not seem to be in distress, however I am quite concerned that once we remove the pigtail catheter, the fluid is going to build up again, and the patient may have a bit of a trapped lung. Was reevaluated today on 12/29/2023, patient continues to have pigtail catheter in place, continues to have some purulent secretions out of the pigtail catheter/right pleural space. Surgery is yet to decide on whether the patient would benefit from decortication. Patient seems to have a loculated right-sided pneumothorax and what seems to be a right trapped lung. Patient had multiple lytic instillation in the right pleural space, chest x-ray today showed improved in the loculation/loculated pneumothorax, and he continues to have subcutaneous emphysema with bibasilar infiltrates. WBC count is 9.2 hemoglobin is 8.7 basic metabolic profile is normal bicarb is 36, clinically the patient is feeling better remains on antibiotics as per ID on the case, still on Merrem. Patient was not today on 12/30/2023, patient is doing better, breathing easier, remains on trach collar, he is still draining from his pigtail catheter, had about 180 cc of purulent drainage from the pigtail catheter over the last 24 hours. Chest x-ray continues to show a loculated right-sided pneumothorax, thoracic surgery is not planning any surgical intervention after they reviewed his CT of the chest and his follow-up x-rays of the chest. Patient remains on antibiotics as per infectious disease on the case, he is receiving Merrem, patient has received almost 2 weeks of antibiotics, his white cell count normalized, discussed with surgery, no plans for surgical intervention, however considering the patient continues to have some fairly good amount of drainage, I would recommend keeping the pigtail catheter in place for now. And again the patient is still receiving Merrem as per ID on the caseWBC count is 5.3 hemoglobin 8.3 basic metabolic profile is normal renal profile is normal, in the meantime patient remains on 40% trach collar Objective - Vital Signs Vital signs: Vital Signs Temp 97.7 F 12/30/23 08:10 Pulse 71 12/30/23 08:10 Resp 18 12/30/23 08:10 BP 95/57 12/30/23 08:10 Pulse Ox 96 12/30/23 08:10 FiO2 28 12/30/23 09:08 Intake & Output 12/29/23 12/30/23 12/30/23 18:59 06:59 18:59 Output Total 110 80 Balance -110 -80 Weight 66.9 kg 66.9 kg Output: Chest Tube Drainage 110 80 Chest Tube Right 110 80 Posterior Chest Other: Voiding Method Toilet Toilet Urinal Urinal - Exam GENERAL EXAM: 58-year-old white male on 40% trach collar, not in distress HEAD: Normocephalic and atraumatic EYES: Normal reaction of pupils, equal size. NOSE: Clear with pink turbinates. THROAT: No erythema or exudates. NECK: No masses, no JVD. Tracheostomy insertion site clean and dry. CHEST/lungs: Diminished breath sounds at the bases, pigtail catheter is noted and draining purulent and serosanguineous fluid. Minimal air leak noted CVS: S1 and S2 normal with no audible murmur, regular rhythm. No extra heart sounds ABDOMEN: No hepatosplenomegaly, active bowel sounds, no guarding or rigidity. PEG tube site clean and dry. SPINE: No scoliosis or deformity SKIN: No rashes CENTRAL NERVOUS SYSTEM: Alert oriented x 3 EXTREMITIES: No clubbing edema or cyanosis - Labs CBC & Chem 7: 12/30/23 10:17 12/30/23 10:17 Labs: Abnormal Lab Results - Last 24 Hours (Table) 12/29/23 12/30/23 12/30/23 Range/Units 18:24 10:17 10:17 RBC 2.74 L (4.30-5.90) m/uL Hgb 8.3 L (13.0-17.5) gm/dL Hct 28.4 L (39.0-53.0) % MCV 103.7 H (80.0-100.0) fL MCHC 29.2 L (31.0-37.0) g/dL Lymphocytes # 0.4 L (1.0-4.8) k/uL Carbon Dioxide 34 H (22-30) mmol/L Creatinine 0.49 L (0.66-1.25) mg/dL Glucose 103 H (74-99) mg/dL POC Glucose (mg/dL) 128 H (70-110) mg/dL Calcium 8.0 L (8.4-10.2) mg/dL Assessment and Plan Assessment: Impression: Acute empyema with acute right hydropneumothorax requiring drainage via pigtail catheter, cultures positive for burkhoderia cepacia complex Acute hemoptysis, resolved Acute on chronic hypoxic respiratory failure presently on 40% trach collar History of laryngeal cancer status post chemoradiation and tracheostomy History of PEG tube insertion Underlying COPD Hypothyroidism Chronic ongoing tobacco dependence Recommendation: Continue pigtail catheter in place Continue antibiotics/Merrem Chest x-ray today was reviewed continues to have a loculated pneumothorax but overall I believe there is improvement, thoracic surgery not planning any surgical intervention Continue IV Merrem Continue oxygen via trach collar Continue nutritional support Prognosis remains very guarded Considering the amount of drainage from the pigtail catheter, will not recommend removing the catheter anytime soon Will continue to follow Time with Patient: Less than 30
--- NOTE | 2023-12-30 14:58 | P.PN ---
Subjective Progress Note Date: 12/30/23 Principal diagnosis: Reason for follow-up is pneumonia/empyema Patient is a 58-year male with a history of squamous cell carcinoma head and neck s/p trach and PEG recent CT chest with heterogeneous mass right middle lobe s/p bronchoscopy culture negative presenting back to the hospital with worsening shortness of breath with a repeat CT shows large right hydropneumothorax s/p chest tube placement and concerning for empyema. On today's evaluation that is 12/30/2023, patient has been afebrile, patient is breathing comfortably and is currently on room air, patient denies having any significant cough no chest pain shortness of breath, patient denies nausea vomiting or diarrhea and no abdominal pain, feeling better. Patient white count is 5.3, creatinine 0.49 chest x-ray stable to minimally improved right loculated pneumothorax Objective - Vital Signs Vital signs: Vital Signs Temp 97.7 F 12/30/23 08:10 Pulse 71 12/30/23 08:10 Resp 18 12/30/23 08:10 BP 95/57 12/30/23 08:10 Pulse Ox 96 12/30/23 08:10 FiO2 28 12/30/23 09:08 Intake & Output 12/29/23 12/30/23 12/30/23 18:59 06:59 18:59 Output Total 110 80 Balance -110 -80 Weight 66.9 kg 66.9 kg Output: Chest Tube Drainage 110 80 Chest Tube Right 110 80 Posterior Chest Other: Voiding Method Toilet Toilet Urinal Urinal - Exam GENERAL DESCRIPTION: Middle-age male up in bed in no distress RESPIRATORY SYSTEM: Unlabored breathing , decreased breath sounds at bases HEART: S1 S2 regular rate and rhythm , ABDOMEN: Soft , no tenderness EXTREMITIES: No edema feet - Labs CBC & Chem 7: 12/30/23 10:17 12/30/23 10:17 Labs: Abnormal Lab Results - Last 24 Hours (Table) 12/29/23 12/30/23 12/30/23 Range/Units 18:24 10:17 10:17 RBC 2.74 L (4.30-5.90) m/uL Hgb 8.3 L (13.0-17.5) gm/dL Hct 28.4 L (39.0-53.0) % MCV 103.7 H (80.0-100.0) fL MCHC 29.2 L (31.0-37.0) g/dL Lymphocytes # 0.4 L (1.0-4.8) k/uL Carbon Dioxide 34 H (22-30) mmol/L Creatinine 0.49 L (0.66-1.25) mg/dL Glucose 103 H (74-99) mg/dL POC Glucose (mg/dL) 128 H (70-110) mg/dL Calcium 8.0 L (8.4-10.2) mg/dL Assessment and Plan (1) Empyema Current Visit: Yes Status: Acute Code(s): J86.9 - PYOTHORAX WITHOUT FISTULA SNOMED Code(s): 987414704 (2) Leukocytosis Current Visit: Yes Status: Acute Code(s): D72.829 - ELEVATED WHITE BLOOD CELL COUNT, UNSPECIFIED SNOMED Code(s): 695620299 (3) Pneumonia Current Visit: Yes Status: Acute Priority: High Code(s): J18.9 - PNEUMONIA, UNSPECIFIED ORGANISM SNOMED Code(s): 337676030 Plan: 1patient presenting to the hospital with increasing shortness of breath and hemoptysis in this patient who did have a CT of the chest with evidence of moderate right effusion with multiple air-fluid level concerning for empyema status post chest tube placement 2-the patient sputum as well as sputum culture did grew Burkholderia cepacia baylee t is intermediate to ceftazidime sensitive to meropenem 3-patient is afebrile patient did have normalization of the white count, 4-patient did have some improvement on the chest x-ray as well as clinically CT surgery not planning for any surgical intervention he will need IV meropenem on discharge and monitor clinical course closely Dictation was produced using [employer] dictation software. please excuse any grammatical, word or spelling errors. Time with Patient: Less than 30
[2023-12-30 18:22] LABS: Glucose,Whole Blood 86 mg/dL (70-110)
[2023-12-31 00:14] LABS: Glucose,Whole Blood 114 mg/dL (70-110)
--- NOTE | 2023-12-31 03:11 | P.PN ---
Subjective Progress Note Date: 12/30/23 Patient is a 58-year-old male with a past medical history of laryngeal cancer status post chemoradiation in July 2023 last tracheostomy and PEG tube placement, COPD, hypothyroidism, history of Graves' disease and currently everyday smoker presents to ER with worsening shortness of breath and hemopty sis. Patient was recently admitted to the hospital from 12/10/2023 to 12/17/2023 and was treated for postoperative pneumonia and COPD. Patient was discharged under hospice care. Patient states that he has been having copious amounts of secretions from the tracheostomy. Denies any fever. No nausea or vomiting. Patient had recent PET scan in September 2023 which showed persistent uptake in the posterior lateral right vocal cord compatible with neoplasm. Patient previously declined biopsy. Chest x-ray on admission showed increasing lucency throughout the right lung concerning for pneumothorax. Small pleural effusion may also be present. CT chest showed interval development of large right pneumothorax with large pneumothorax and small heterogenous complex right pleural effusion. There is consolidation changes around the right pulmonary hilum thought to represent atelectasis in the area of cavitation possibly secondary to prior mass. Retained secretions predominantly within the right main bronchus, right lower and right middle lobe large airways. Correlate for retained secretions. Co nsider bronchoscopy. Chest tube was placed by ER physician. Repeat chest x-ray showed right-sided c hest tube in place with significant decrease in size of right-sided hydro pneumothorax and partial reexpansion. Laboratory data showed WBC 16.9 hemoglobin 11.0 and platelets 475 Sodium 134 potassium 5.1 chloride 105 bicarb is 22 BUN 19 and creatinine 0.41 and blood sugar 64 albumin 2.6 and procalcitonin level is elevated to 0.22 12/21/2023 Patient is seen in follow-up today continues to report significant shortness of breath and pain in multiple areas including the right chest where his chest tube is. Home medications reviewed and resumed as appropriate and patient is continued on Dilaudid and will resume [place] and his fentanyl patch. Follow-up chest x-ray today shows no significant change in pleural parenchymal opacity of the right lung base with slightly improved right apical pneumothorax. CT chest is ordered and pending at this time. Patient is continued on IV antibiotics in the form of Zosyn and vancomycin being added. Patient is afebrile with no reports of chest pain or palpitations. Patient continues on trach collar with a flow rate of 8 and FiO2 is 35%. Tolerating tube feeds thus far and will also add bowel regimen given he is on a number of different narcotics. 12/22/2023 Patient is seen and evaluated in follow-up maintained on trach collar and high flow oxygen with continued right chest tube. There is noted fluid collection on the CT imaging from yesterday and IR has been consulted possible pigtail catheter placement as it appears somewhat loculated. Present right-sided chest tube with minimal output noted per nursing staff. Patient is maintained on antibiotics and will consult infectious disease and appreciate input and recommendations. Cultures all remain pending thus far. Cytology is pending as well. Overall prognosis remains poor and guarded at this time. Patient wishes to remain full code. 12/23/2023 Patient seen and evaluated in follow-up status post pigtail catheter placement and CT surgery has been consulted. Patient to receive alteplase for loculated empyema noted on the right. Patient is continued on breathing inhalational treatments along with high flow oxygen via trach collar. Patient is reporting significant pain and will adjust medications appropriately. Had a lengthy discussion with the patient regarding overall CODE STATUS and patient wishes to remain full code does not currently want hospice. Discussed with daughter over the phone after discussing with patient about overall prognosis and treatment plan moving forward. Daughter feels he would benefit from rehab as all of his comorbidities have become more difficult to handle and she feels he is not safe to return home and manage his care himself. Case management is following and working with the patient. Will have PT/OT therapy evaluate the patient. Inf ectious disease following and patient is maintained on broad spec. 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 Patient may likely require IV antibiotics on discharge. Patient will require a PICC line and no staff available until Wednesday to have a PICC line placed. Patient is currently afebrile and denies chest pain or palpitations. Patient reports continued shortness of breath off with secretions. Patient tolerating tube feedings thus far and will continue on bowel regimen as well as patient is receiving IV narcotics. 12/24/2023 Patient is seen and evaluated in follow-up with multiple medical consultations following. Patient remains on trach collar 30% and reports no significant improvements in dyspnea although reports about the same. Patient continues with pigtail catheter currently receiving alteplase daily and chest x-rays with CT surgery following. Patient continues to have purulent drainage with cultures mentioned above with infectious disease following. Patient is continued on meropenem and vancomycin is discontinued. Patient continues on tube feeds and reports tolerating although feels for and reports not having a bowel movement over the last 5 days. Will obtain abdominal x-ray and continue bowel regimen. Recommend Dulcolax suppository and this was discussed with nursing at bedside. Patient is agreeable. Patient is continued on a number of pain medications which would make me concerned for constipation. Minimal bowel sounds noted. Patient denies abdominal pain but does report feeling full. Per nursing staff as well patient's insurance information and paperwork has been faxed with daughter at the bedside regarding continuation of [employer] insurance through his employer. Case management is following. Patient may require IV antibiotics on discharge and continued nursing care at an [facility]. Encouraged to increase activity as tolerated. 12/25/2023 Patient is sitting on side of bed. Awake alert and oriented 3. Unable to communicate due to trach collar with 40% FiO2. Patient had additional 5 cc through chest tube. No complaints of chest pain. Breathing status improving. Chest x-ray today showed right basilar pigtail pleural catheter terminates over the medial lung base. Small amount of gas in the chest wall adjacent to the tube. Similar amount of air within the right-sided pleural collection compatible with hydropneumothorax and empyema. Stable pleural-parenchymal o pacity in the right lung base and increased density in the medial left lung base. Laboratory data showed reviewed. Pulmonary is on board. 12/26/2023 Patient is sitting on side of bed. Awake alert and oriented x 3. Trach collar with 40% FiO2. No complaints of chest pain or worsening shortness of breath. Patient is having 400 cc fluid output from the pigtail catheter. Patient is afebrile otherwise. No nausea vomiting. CT chest was done today showed complex pleural collection seen previously is much improved with previously noted multiple air-fluid levels essentially resolving hydropneumothorax persisting. Persistent right perihilar cavitary lesion. Patient appears smaller in size and currently measures 2.7 cm in greatest dimension versus 4.3 cm. Laboratory data showed WBC 9.3 hemoglobin 8.0 and platelets 450 and MCV 103.9, sodium 142 potassium 3.6 chloride 106 bicarb is 33 BUN 14 and creatinine 0.599 and blood sugar is 78 and calcium 8.0. Pulmonary is on board. Patient on antibiotics meropenem. 12/27/2023 Patient is seen and evaluated in follow-up with multiple medical consultations following. Patient is continued on IV antibiotics with infectious disease following currently on meropenem and discussing possibly requiring IV antibiotic therapy on discharge. Patient does have a PICC line. Patient continues with right pigtail catheter currently receiving alteplase with CT surgery following as there continues to be purulent drainage noted. Discussing possible washout of the right lung. Patient continues on pain management as well as bowel regimen and will continue. Wean FiO2 as tolerated. Patient currently on 40% FiO2 trach collar. Patient is afebrile with no reports of worsening shortness of breath. Patient denying chest pain or palpitations. Patient is tolerating tube feedings and recommend to continue with head of the bed elevated 30 to 45 degrees at all times and monitoring for residuals. 12/28/2023 Patient is seen and evaluated in follow-up continues to be receiving alteplase via pigtail catheter on the right. Per nursing staff there has been minimal output noted and patient remains on IV antibiotics with infectious disease following. Plan is for 2 weeks of antibiotics outpatient. Pulmonary following as well maintained on breathing inhalational treatments and discussing with CT surgery about possible decortication as there is concern once the catheter is removed, it will fill up again and recur. Follow-up on chest x-ray in the a.m. Patient is currently afebrile with no reported chest pain or worsening shortness of breath. Patient is tolerating tube feeds and reports had a bowel movement a few days ago. Recommend to continue with bowel regimen daily as patient is receiving narcotic medication. Patient encouraged to increase activity as tolerated. Will have physical therapy evaluate the patient. 12/29/2023 Patient is seen in follow-up this morning continues with right pigtail catheter and per patient overnight there was copious amounts of drainage noted and patient has been receiving alteplase administrations. Pulmonary following discussing with CT surgery regarding possible decortication and awaiting reevaluation by CT surgery. Patient maintained on antibiotics with infectious disease following and will continue. Patient is concerned of going home continued infection and becoming more severe and requiring hospitalization again. Patient lives alone and unsure if he will be able to handle all this. Recommend ECF on discharge. Patient is afebrile and denies chest pain other than at the chest tube site with no palpitations. Patient denying worsening shortness of breath. 12/30/2023 Patient is seen and evaluated today with pulmonary following closely. Patient continues on trach collar with an FiO2 of 40% and reports breathing is improved. Patient continues on antibiotics in the form of meropenem and will need 2 weeks of antibiotics on discharge. Patient does have a PICC line as well as continued pigtail catheter. Per pulmonary no plans for surgical intervention at this time and recommend continuing with monitoring drainage. Will follow-up with repeat chest x-ray. Patient is afebrile and white count has normalized and CT surgery with no plans of surgical intervention. Prognosis is guarded at this time. Recommend PT/OT therapy evaluation. Dietary following as patient is maintained on tube feeds and tolerating. Review of systems: Constitutional: No reports of fatigue, fever, or chills Cardiovascular: No reports of chest pain or palpitations Respiratory: reports of continued shortness of breath although stable and right chest wall discomfort. GI: No reports of nausea, vomiting, or diarrhea, reports having bowel movement and passing gas : No reports of dysuria or retention Neurovascular: reports of generalized weakness All medications have been reviewed PHYSICAL EXAMINATION: Patient is sitting up in the bed, appears less anxious, awake alert and oriented. Thin built, emaciated, ill-appearing, elderly appearing, has tracheostomy currently maintained on oxygen with a trach collar 40%.. HEENT: Normocephalic. Neck is supple. Pupils reactive. Nostrils clear. Oral cavity is moist. Neck reveals no JVD, carotid bruits, or thyromegaly. CHEST EXAMINATION: Trachea is central. Symmetrical expansion. Bibasilar coarse sounds and crackles. Nonlabored breathing.. Right pigtail catheter noted with continued purulent drainage noted CARDIAC: S1, S2 muffled ABDOMEN: Soft. Thin, scaphoid bowel sounds hypoactive. No organomegaly. No abdominal bruits. PEG tube noted Extremities: reveal no edema. No clubbing or cyanosis Neurologically awake, alert, oriented x3. Able to move all extremities. No gross focal neurological deficits.. Diffusely weak Skin: No rash or skin lesions. Psychiatric: Cooperative. Non-suicidal Musculoskeletal: No joint swelling or deformity. Assessment: Acute large right-sided hydropneumothorax status post chest tube placement with decrease in size of the right-sided hydropneumothorax and partial reexpansion. Acute on chronic hypoxemic respiratory failure secondary to above, on trach collar FiO2 is 40% and O2 is 11 L Right-sided empyema, status post pigtail catheter placement, status post daily alteplase administration through chest tube Acute hemoptysis on admission, resolved History of laryngeal cancer status post chemoradiation in July 2023 and tracheostomy and PEG tube placement. Patient had PET scan done in September 2023 showed persistent uptake in the posterior lateral right cord level compatible with neoplasm. Patient declined biopsy on previous admission recently Recent admission for from 11/19/2023 to 12/17/2023 postobstructive pneumonia and also CT evidence of lobular heterogenous mass and necrotic components in the right middle lobe. Status post bronchoscopy and biopsy. BAL cultures negative and biopsies nondiagnostic for malignancy. Hypothyroidism History of Graves' disease COPD Ongoing nicotine addiction DVT prophylaxis with heparin subcu GI prophylaxis Full code Plan: Patient is on humidified oxygen via trach collar with an FiO2 of 40% and oxygen is 11 L. Weaning as tolerated. Patient had been receiving daily alteplase for continued empyema. Patient continues with drainage from the right pigtail catheter with no plans of surgical intervention per CT surgery Patient is being continued on IV antibiotics in the form of cefepime with infectious disease following. Patient does have a PICC line and will require 2 weeks of antibiotics on discharge. 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 Continue with breathing treatments Continue with pain management and bowel regimen. Patient with significant weakness as well as significant comorbidities will consult PT/OT and discuss further with case management regarding discharge planning once patient is stabilized. Family feels he is unable to care for himself and would benefit from ECF. Patient will require IV antibiotics on discharge given this empyema and extensive pneumonia. Due to multiple complex medical issues, overall prognosis is poor and guarded The impression and plan of care has been dictated by Virginie Urbina, Nurse Practitioner as directed. Dr. Andreas MD I have performed a history and examination and MDM of this patient, discussed the same with the dictator, and agree with the dictator's assessment and plan as written ,documented as a scribe. Based on total visit time, I have performed more than 50% of the visit. Objective - Vital Signs Vital signs: Vital Signs Temp 97.1 F L 04/18/24 19:58 Pulse 69 12/30/23 23:23 Resp 18 12/30/23 23:23 BP 102/65 12/30/23 23:23 Pulse Ox 94 L 12/30/23 23:23 FiO2 28 12/30/23 09:08 Intake & Output 12/30/23 12/30/23 12/31/23 06:59 18:59 06:59 Output Total 80 140 720 Balance -80 -140 -720 Weight 66.9 kg 66.9 kg Output: Chest Tube Drainage 80 140 20 Chest Tube Right 80 140 20 Posterior Chest Urine 700 Other: Voiding Method Toilet Toilet Toilet Urinal Urinal Urinal - Labs CBC & Chem 7: 12/30/23 10:17 12/30/23 10:17 Labs: Abnormal Lab Results - Last 24 Hours (Table) 12/30/23 12/30/23 12/31/23 Range/Units 10:17 10:17 00:12 RBC 2.74 L (4.30-5.90) m/uL Hgb 8.3 L (13.0-17.5) gm/dL Hct 28.4 L (39.0-53.0) % MCV 103.7 H (80.0-100.0) fL MCHC 29.2 L (31.0-37.0) g/dL Lymphocytes # 0.4 L (1.0-4.8) k/uL Carbon Dioxide 34 H (22-30) mmol/L Creatinine 0.49 L (0.66-1.25) mg/dL Glucose 103 H (74-99) mg/dL POC Glucose (mg/dL) 114 H (70-110) mg/dL Calcium 8.0 L (8.4-10.2) mg/dL Microbiology - Last 24 Hours (Table) 12/21/23 08:00 Acid Fast Bacilli Smear - Preliminary Pleural Fluid Acid Fast Bacilli Culture - Preliminary
[2023-12-31 05:55] LABS: Glucose,Whole Blood 88 mg/dL (70-110)
[2023-12-31 12:24] LABS: Glucose,Whole Blood 113 mg/dL (70-110)
--- NOTE | 2023-12-31 15:29 | P.PN ---
Subjective Progress Note Date: 12/31/23 Principal diagnosis: Reason for follow-up is pneumonia/empyema Patient is a 58-year male with a history of squamous cell carcinoma head and neck s/p trach and PEG recent CT chest with heterogeneous mass right middle lobe s/p bronchoscopy culture negative presenting back to the hospital with worsening shortness of breath with a repeat CT shows large right hydropneumothorax s/p chest tube placement and concerning for empyema. On today's evaluation that is 12/31/2023,the patient denies any fever or any chills, patient is breathing comfortably on 5 L trach collar the patient denies chest pain shortness of breath and cough is decreased in intensity, patient denies abdominal pain, no nausea vomiting or diarrhea. No new symptoms. No new labs were obtained today Objective - Vital Signs Vital signs: Vital Signs Temp 97.1 F L 12/30/23 19:58 Pulse 70 12/31/23 03:20 Resp 18 12/31/23 03:20 BP 107/67 12/31/23 03:20 Pulse Ox 97 12/31/23 03:20 FiO2 28 12/30/23 09:08 Intake & Output 12/30/23 12/31/23 12/31/23 18:59 06:59 18:59 Output Total 140 760 Balance -140 -760 Weight 66.9 kg Output: Chest Tube Drainage 140 60 Chest Tube Right 140 60 Posterior Chest Urine 700 Other: Voiding Method Toilet Toilet Urinal Urinal - Exam GENERAL DESCRIPTION: Middle-age male up in bed in no distress RESPIRATORY SYSTEM: Unlabored breathing , decreased breath sounds at bases HEART: S1 S2 regular rate and rhythm , ABDOMEN: Soft , no tenderness EXTREMITIES: No edema feet - Labs CBC & Chem 7: 12/30/23 10:17 12/30/23 10:17 Labs: Abnormal Lab Results - Last 24 Hours (Table) 12/30/23 12/30/23 12/31/23 Range/Units 10:17 10:17 00:12 RBC 2.74 L (4.30-5.90) m/uL Hgb 8.3 L (13.0-17.5) gm/dL Hct 28.4 L (39.0-53.0) % MCV 103.7 H (80.0-100.0) fL MCHC 29.2 L (31.0-37.0) g/dL Lymphocytes # 0.4 L (1.0-4.8) k/uL Carbon Dioxide 34 H (22-30) mmol/L Creatinine 0.49 L (0.66-1.25) mg/dL Glucose 103 H (74-99) mg/dL POC Glucose (mg/dL) 114 H (70-110) mg/dL Calcium 8.0 L (8.4-10.2) mg/dL Microbiology - Last 24 Hours (Table) 12/21/23 08:00 Acid Fast Bacilli Smear - Preliminary Pleural Fluid Acid Fast Bacilli Culture - Preliminary Assessment and Plan (1) Empyema Current Visit: Yes Status: Acute Code(s): J86.9 - PYOTHORAX WITHOUT FISTULA SNOMED Code(s): 149930631 (2) Leukocytosis Current Visit: Yes Status: Acute Code(s): D72.829 - ELEVATED WHITE BLOOD CELL COUNT, UNSPECIFIED SNOMED Code(s): 355332657 (3) Pneumonia Current Visit: Yes Status: Acute Priority: High Code(s): J18.9 - PNEUMONIA, UNSPECIFIED ORGANISM SNOMED Code(s): 258612291 Plan: 1patient presenting to the hospital with increasing shortness of breath and hemoptysis in this patient who did have a CT of the chest with evidence of moderate right effusion with multiple air-fluid level concerning for empyema status post chest tube placement 2-the patient sputum as well as sputum culture did grew Burkholderia cepacia that is intermediate to ceftazidime sensitive to meropenem 3-patient is afebrile patient did have normalization of the white count, 4-patient did have some improvement on the chest x-ray along with some clinical improvement CT surgery not planning for any surgical intervention 5-patient to continue IV meropenem plan is for 2 to 3 weeks course of antibiotic therapy depending upon clinical response and monitor clinical course closely Dictation was produced using [employer] dictation software. please excuse any grammatical, word or spelling errors. Time with Patient: Less than 30
--- NOTE | 2023-12-31 15:35 | XR ---
EXAMINATION TYPE: XR chest 1V portable DATE OF EXAM: 12/31/2023 COMPARISON: 12/29/2023 INDICATION: Pleural effusion TECHNIQUE: Single frontal view of the chest is obtained. FINDINGS: The heart size is normal. The pulmonary vasculature is normal. Mild increased lung markings are at the right lower lobe. Correlate for atelectasis or pneumonia. Loculated pneumothorax remains present disappears somewhat smaller than comparison. Subcutaneous emph ysema may be diminished over the interval. Catheter has been adjusted on the right appears to be with in the pneumothorax. IMPRESSION: 1. Diminished size of a right pneumothorax. The drainage tubes been adjusted. 2. Right lower lobe infiltrate, improving
--- NOTE | 2023-12-31 16:18 | P.PN ---
Subjective Progress Note Date: 12/31/23 On today's evaluation of 12/23/2023, the patient is being seen for a follow-up. Doing well, no specific complaints, on a trach collar with FiO2 of 40% 10 L oxygen flow. White cell count is at 9.4 with a hemoglobin of 8.9. BUN 11 creatinine of 0.6 and sodium levels at 142. As mentioned yesterday, the pigtail catheter was inserted into the posterior right chest and approximately 900 cc of purulent material was aspirated. Cultures are still pending for now. Repeat chest x-ray was done today and the chest x-ray is showing pigtail catheter in the right lung base. The patient has a loculated right-sided pneumothorax in the lateral aspect of the right lower chest. The pleural-parenchymal opacity in the right lung base is improved. There is some increased density in the medial aspect of the left lung base. The right upper lobe is essentially clear at this point in time. Right-sided chest tube is also in place. There is no evidence of any air leak. No output from the right-sided chest tube. The sputum culture was positive for a combination of Klebsiella and Burhdolderia and the patient is still on a combination of Zosyn and vancomycin. Awaiting cultures from the pleural fluid. Awake and alert and communicating. Continues to receive enteral feeding for additional support. Case was discussed with cardiothoracic surgery. Infectious disease consultation has also been obtained regarding this ongoing empyema. The patient was kept on the same antibiotic coverage. On today's evaluation of 12/24/2023, the patient has no specific complaints. The right-sided chest that was notable to the pigtail catheter has been kept in place. Repeat chest x-ray from today showed essentially stable right-sided hydropneumothorax. The right total chest tube catheter is still in place. There is still some parenchymal pulmonary opacity in the right lung base. Nevertheless, the patient is receiving daily therapy administration and since yesterday, the patient has produced another 400 cc of purulent material through the pigtail catheter. 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 Vancomycin has been discontinued. Noted the sputum and the pleural fluid cultures came back positive for the same microorganism. Infectious disease on the case. The patient remains afebrile. WBC count is at 8.8 with a hemoglobin 8.4 and platelet count of 460. BUN is at 14 with a creatinine of 0.8 and a sodium levels at 141. Awake and alert and communicating. Continues to receive enteral feeding for respiratory support. Terms of his oxygenation currently is on a 40% trach collar. No interval worsening shortness of breath. On today's evaluation of 12/25/2023, I am seeing the patient for a follow-up. Since yesterday, the patient has another additional 500 cc through the chest tube. The patient remains on 40% trach collar. No interval worsening shortness of breath. Respiratory status remained stable. Pigtail catheter is in place. Catheter installation of tPA was done today. Based on today's chest x-ray, the findings are essentially similar with an area of consolidation in the right posterior lung base with a stable right-sided hydropneumothorax. There is stable pleural-parenchymal opacity in the right lung base. The pigtail catheter is in good location. The patient continues to be on IV meropenem. At the same time, the patient experienced some GI upset. X-ray of the abdomen was done that showed nonspecific findings. Abdomen is nondistended. Tube feeds were placed on hold for yesterday and this will be restarted at a lower rate. On today's evaluation of 12/26/2023, the patient is doing well. Remains on a 40% trach collar. No respiratory distress. No fever or chills. Remains on IV meropenem. Output from the pigtail catheter has been noted and the patient has produced approximately 400 cc of output over the past 24 hours. A follow-up CAT scan of the chest was done without contrast this morning and a CAT scan of the chest showed a significant improvement in the previously described multi air- fluid level and there is improvement in the right-sided hydropneumothorax although there is some residual pneumothorax along the right lateral posterior chest. There is also some perihilar cavitary lesions. Lesions have decreased in size and currently measuring up to 2.7 cm in dimension. Tracheostomy is stil l in place. The pigtail catheter is in a good location. The right-sided hydropneumothorax is dropped from 17 to 3 cm meter in size. There is emphysematous changes with paraseptal emphysema in the upper lobes bilaterally.The white cell count is at 9.3 with a hemoglobin of 8 and a platelet count of 450. BUN is at 40 with a creatinine of 0.9 and sodium levels at 142. Patient was reevaluated today on 12/27/2023, patient remains on 40% trach collar, continues to have chest tube in place, remains on antibiotics as per infectious disease, presently on Merrem. Patient is being treated for empyema and hydropneumothorax. Labs including CBC and basic metabolic profile are normal patient seems to be comfortable, I believe infectious disease is planning treatment for at least 2 weeks for his empyema using Merrem. Patient does have a PICC line in place, wondering if this could be done at home but I do not believe the chest tube is ready to be removed yet, continues to drain, and the drainage is still purulent. Continues to have some pneumothorax but no airleak noted Reevaluate today on 12/28/2023, patient remains on 40% trach collar. Continues to have right-sided chest tube/pigtail catheter in place, continues to drain however the drainage is becoming minimal. Last CT of the chest did show evidence of hydropneumothorax, updated thoracic surgery on the case, apparently Dr. Lubin is aware of the case, and he has no plans for decortication will have thoracic surgery evaluate the patient again, but over the phone no plans for decortication. In the meantime the patient is receiving antibiotics, and the plan is to give him 2 full weeks of IV antibiotics. Patient does not seem to be in distress, however I am quite concerned that once we remove the pigtail catheter, the fluid is going to build up again, and the patient may have a bit of a trapped lung. Was reevaluated today on 12/29/2023, patient continues to have pigtail catheter in place, continues to have some purulent secretions out of the pigtail catheter/right pleural space. Surgery is yet to decide on whether the patient would benefit from decortication. Patient seems to have a loculated right-sided pneumothorax and what seems to be a right trapped lung. Patient had multiple lytic instillation in the right pleural space, chest x-ray today showed improved in the loculation/loculated pneumothorax, and he continues to have subcutaneous emphysema with bibasilar infiltrates. WBC count is 9.2 hemoglobin is 8.7 basic metabolic profile is normal bicarb is 36, clinically the patient is feeling better remains on antibiotics as per ID on the case, still on Merrem. Patient was not today on 12/30/2023, patient is doing better, breathing easier, remains on trach collar, he is still draining from his pigtail catheter, had about 180 cc of purulent drainage from the pigtail catheter over the last 24 hours. Chest x-ray continues to show a loculated right-sided pneumothorax, thoracic surgery is not planning any surgical intervention after they reviewed his CT of the chest and his follow-up x-rays of the chest. Patient remains on antibiotics as per infectious disease on the case, he is receiving Merrem, tasneem garcia has received almost 2 weeks of antibiotics, his white cell count normalized, discussed with surgery, no plans for surgical intervention, however considering the patient continues to have some fairly good amount of drainage, I would recommend keeping the pigtail catheter in place for now. And again the patient is still receiving Merrem as per ID on the caseWBC count is 5.3 hemoglobin 8.3 basic metabolic profile is normal renal profile is normal, in the meantime patient remains on 40% trach collar The patient is seen today December 31, 2023 in follow-up on the selective care unit. He is currently sitting up in the bedside. Awake and alert in no acute distress. Maintaining good O2 saturations in the 90s on 28% FiO2 via trach collar. He is afebrile. Hemodynamically stable. Today's chest x-ray reveals diminished size of the right pneumothorax. Right-sided pigtail catheter remains in place. There was some subcutaneous emphysema. Blood sugar 113. He remains on DuoNeb ventilations, antibiotics in the form of meropenem. Heparin for DVT prophylaxis. Multiple pain medications. Objective - Vital Signs Vital signs: Vital Signs Temp 97.8 F 12/31/23 08:40 Pulse 94 12/31/23 08:40 Resp 18 12/31/23 08:40 BP 88/55 12/31/23 08:40 Pulse Ox 94 L 12/31/23 08:40 FiO2 28 12/31/23 13:33 Intake & Output 12/30/23 12/31/23 12/31/23 18:59 06:59 18:59 Output Total 140 760 20 Balance -140 -760 -20 Weight 66.9 kg Output: Chest Tube Drainage 140 60 20 Chest Tube Right 140 60 20 Posterior Chest Urine 700 Other: Voiding Method Toilet Toilet Toilet Urinal Urinal Urinal - Exam GENERAL EXAM: This is a pleasant 58-year-old male on 28% trach collar, in no acute distress HEAD: Normocephalic and atraumatic EYES: Normal reaction of pupils, equal size. NOSE: Clear with pink turbinates. THROAT: No erythema or exudates. NECK: No masses, no JVD. Tracheostomy insertion site clean and dry. CHEST/lungs: Subcutaneous emphysema. Diminished breath sounds at the bases, pigtail catheter is noted and draining purulent and serosanguineous fluid. Minimal air leak noted CVS: S1 and S2 normal with no audible murmur, regular rhythm. No extra heart sounds ABDOMEN: No hepatosplenomegaly, active bowel sounds, no guarding or rigidity. PEG tube site clean and dry. SPINE: No scoliosis or deformity SKIN: No rashes CENTRAL NERVOUS SYSTEM: Alert oriented x 3 EXTREMITIES: No clubbing edema or cyanosis - Labs CBC & Chem 7: 12/30/23 10:17 12/30/23 10:17 Labs: Abnormal Lab Results - Last 24 Hours (Table) 12/31/23 12/31/23 Range/Units 00:12 12:22 POC Glucose (mg/dL) 114 H 113 H (70-110) mg/dL Microbiology - Last 24 Hours (Table) 12/21/23 08:00 Acid Fast Bacilli Smear - Preliminary Pleural Fluid Acid Fast Bacilli Culture - Preliminary Assessment and Plan Assessment: Acute empyema with acute right hydropneumothorax requiring drainage via pigtail catheter, cultures positive for burkhoderia cepacia complex Acute hemoptysis, resolved Acute on chronic hypoxic respiratory failure presently on 40% trach collar History of laryngeal cancer status post chemoradiation and tracheostomy History of PEG tube insertion Underlying COPD Hypothyroidism Chronic ongoing tobacco dependence Plan: The patient was seen and evaluated Chest x-ray, labs and medications reviewed Pigtail catheter in good position Continues with airleak Chest x-ray showing improved pneumothorax and infiltrate Continued on meropenem Plan is for 2 to 3 weeks of antibiotics per ID services Titrate the FiO2 as tolerated Continued on TwoCal HN PEG tube feedings 1500 MLS per day Overall prognosis is poor We will continue to follow I have personally seen and examined the patient, performed the documentation and the assessment and plan as written. Number of minutes spent on the visit: 10.
[2024-01-01 00:07] LABS: Glucose,Whole Blood 89 mg/dL (70-110)
--- NOTE | 2024-01-01 05:25 | P.PN ---
Subjective Progress Note Date: 12/31/23 Patient is a 58-year-old male with a past medical history of laryngeal cancer status post chemoradiation in July 2023 last tracheostomy and PEG tube placement, COPD, hypothyroidism, history of Graves' disease and currently everyday smoker presents to ER with worsening shortness of breath and hemopty sis. Patient was recently admitted to the hospital from 12/10/2023 to 12/17/2023 and was treated for postoperative pneumonia and COPD. Patient was discharged under hospice care. Patient states that he has been having copious amounts of secretions from the tracheostomy. Denies any fever. No nausea or vomiting. Patient had recent PET scan in September 2023 which showed persistent uptake in the posterior lateral right vocal cord compatible with neoplasm. Patient previously declined biopsy. Chest x-ray on admission showed increasing lucency throughout the right lung concerning for pneumothorax. Small pleural effusion may also be present. CT chest showed interval development of large right pneumothorax with large pneumothorax and small heterogenous complex right pleural effusion. There is consolidation changes around the right pulmonary hilum thought to represent atelectasis in the area of cavitation possibly secondary to prior mass. Retained secretions predominantly within the right main bronchus, right lower and right middle lobe large airways. Correlate for retained secretions. Co nsider bronchoscopy. Chest tube was placed by ER physician. Repeat chest x-ray showed right-sided c hest tube in place with significant decrease in size of right-sided hydro pneumothorax and partial reexpansion. Laboratory data showed WBC 16.9 hemoglobin 11.0 and platelets 475 Sodium 134 potassium 5.1 chloride 105 bicarb is 22 BUN 19 and creatinine 0.41 and blood sugar 64 albumin 2.6 and procalcitonin level is elevated to 0.22 12/21/2023 Patient is seen in follow-up today continues to report significant shortness of breath and pain in multiple areas including the right chest where his chest tube is. Home medications reviewed and resumed as appropriate and patient is continued on Dilaudid and will resume [place] and his fentanyl patch. Follow-up chest x-ray today shows no significant change in pleural parenchymal opacity of the right lung base with slightly improved right apical pneumothorax. CT chest is ordered and pending at this time. Patient is continued on IV antibiotics in the form of Zosyn and vancomycin being added. Patient is afebrile with no reports of chest pain or palpitations. Patient continues on trach collar with a flow rate of 8 and FiO2 is 35%. Tolerating tube feeds thus far and will also add bowel regimen given he is on a number of different narcotics. 12/22/2023 Patient is seen and evaluated in follow-up maintained on trach collar and high flow oxygen with continued right chest tube. There is noted fluid collection on the CT imaging from yesterday and IR has been consulted possible pigtail catheter placement as it appears somewhat loculated. Present right-sided chest tube with minimal output noted per nursing staff. Patient is maintained on antibiotics and will consult infectious disease and appreciate input and recommendations. Cultures all remain pending thus far. Cytology is pending as well. Overall prognosis remains poor and guarded at this time. Patient wishes to remain full code. 12/23/2023 Patient seen and evaluated in follow-up status post pigtail catheter placement and CT surgery has been consulted. Patient to receive alteplase for loculated empyema noted on the right. Patient is continued on breathing inhalational treatments along with high flow oxygen via trach collar. Patient is reporting significant pain and will adjust medications appropriately. Had a lengthy discussion with the patient regarding overall CODE STATUS and patient wishes to remain full code does not currently want hospice. Discussed with daughter over the phone after discussing with patient about overall prognosis and treatment plan moving forward. Daughter feels he would benefit from rehab as all of his comorbidities have become more difficult to handle and she feels he is not safe to return home and manage his care himself. Case management is following and working with the patient. Will have PT/OT therapy evaluate the patient. Inf ectious disease following and patient is maintained on broad spec. 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 Patient may likely require IV antibiotics on discharge. Patient will require a PICC line and no staff available until Wednesday to have a PICC line placed. Patient is currently afebrile and denies chest pain or palpitations. Patient reports continued shortness of breath off with secretions. Patient tolerating tube feedings thus far and will continue on bowel regimen as well as patient is receiving IV narcotics. 12/24/2023 Patient is seen and evaluated in follow-up with multiple medical consultations following. Patient remains on trach collar 30% and reports no significant improvements in dyspnea although reports about the same. Patient continues with pigtail catheter currently receiving alteplase daily and chest x-rays with CT surgery following. Patient continues to have purulent drainage with cultures mentioned above with infectious disease following. Patient is continued on meropenem and vancomycin is discontinued. Patient continues on tube feeds and reports tolerating although feels for and reports not having a bowel movement over the last 5 days. Will obtain abdominal x-ray and continue bowel regimen. Recommend Dulcolax suppository and this was discussed with nursing at bedside. Patient is agreeable. Patient is continued on a number of pain medications which would make me concerned for constipation. Minimal bowel sounds noted. Patient denies abdominal pain but does report feeling full. Per nursing staff as well patient's insurance information and paperwork has been faxed with daughter at the bedside regarding continuation of [employer] insurance through his employer. Case management is following. Patient may require IV antibiotics on discharge and continued nursing care at an [facility]. Encouraged to increase activity as tolerated. 12/25/2023 Patient is sitting on side of bed. Awake alert and oriented 3. Unable to communicate due to trach collar with 40% FiO2. Patient had additional 5 cc through chest tube. No complaints of chest pain. Breathing status improving. Chest x-ray today showed right basilar pigtail pleural catheter terminates over the medial lung base. Small amount of gas in the chest wall adjacent to the tube. Similar amount of air within the right-sided pleural collection compatible with hydropneumothorax and empyema. Stable pleural-parenchymal o pacity in the right lung base and increased density in the medial left lung base. Laboratory data showed reviewed. Pulmonary is on board. 12/26/2023 Patient is sitting on side of bed. Awake alert and oriented x 3. Trach collar with 40% FiO2. No complaints of chest pain or worsening shortness of breath. Patient is having 400 cc fluid output from the pigtail catheter. Patient is afebrile otherwise. No nausea vomiting. CT chest was done today showed complex pleural collection seen previously is much improved with previously noted multiple air-fluid levels essentially resolving hydropneumothorax persisting. Persistent right perihilar cavitary lesion. Patient appears smaller in size and currently measures 2.7 cm in greatest dimension versus 4.3 cm. Laboratory data showed WBC 9.3 hemoglobin 8.0 and platelets 450 and MCV 103.9, sodium 142 potassium 3.6 chloride 106 bicarb is 33 BUN 14 and creatinine 0.599 and blood sugar is 78 and calcium 8.0. Pulmonary is on board. Patient on antibiotics meropenem. 12/27/2023 Patient is seen and evaluated in follow-up with multiple medical consultations following. Patient is continued on IV antibiotics with infectious disease following currently on meropenem and discussing possibly requiring IV antibiotic therapy on discharge. Patient does have a PICC line. Patient continues with right pigtail catheter currently receiving alteplase with CT surgery following as there continues to be purulent drainage noted. Discussing possible washout of the right lung. Patient continues on pain management as well as bowel regimen and will continue. Wean FiO2 as tolerated. Patient currently on 40% FiO2 trach collar. Patient is afebrile with no reports of worsening shortness of breath. Patient denying chest pain or palpitations. Patient is tolerating tube feedings and recommend to continue with head of the bed elevated 30 to 45 degrees at all times and monitoring for residuals. 12/28/2023 Patient is seen and evaluated in follow-up continues to be receiving alteplase via pigtail catheter on the right. Per nursing staff there has been minimal output noted and patient remains on IV antibiotics with infectious disease following. Plan is for 2 weeks of antibiotics outpatient. Pulmonary following as well maintained on breathing inhalational treatments and discussing with CT surgery about possible decortication as there is concern once the catheter is removed, it will fill up again and recur. Follow-up on chest x-ray in the a.m. Patient is currently afebrile with no reported chest pain or worsening shortness of breath. Patient is tolerating tube feeds and reports had a bowel movement a few days ago. Recommend to continue with bowel regimen daily as patient is receiving narcotic medication. Patient encouraged to increase activity as tolerated. Will have physical therapy evaluate the patient. 12/29/2023 Patient is seen in follow-up this morning continues with right pigtail catheter and per patient overnight there was copious amounts of drainage noted and patient has been receiving alteplase administrations. Pulmonary following discussing with CT surgery regarding possible decortication and awaiting reevaluation by CT surgery. Patient maintained on antibiotics with infectious disease following and will continue. Patient is concerned of going home continued infection and becoming more severe and requiring hospitalization again. Patient lives alone and unsure if he will be able to handle all this. Recommend ECF on discharge. Patient is afebrile and denies chest pain other than at the chest tube site with no palpitations. Patient denying worsening shortness of breath. 12/30/2023 Patient is seen and evaluated today with pulmonary following closely. Patient continues on trach collar with an FiO2 of 40% and reports breathing is improved. Patient continues on antibiotics in the form of meropenem and will need 2 weeks of antibiotics on discharge. Patient does have a PICC line as well as continued pigtail catheter. Per pulmonary no plans for surgical intervention at this time and recommend continuing with monitoring drainage. Will follow-up with repeat chest x-ray. Patient is afebrile and white count has normalized and CT surgery with no plans of surgical intervention. Prognosis is guarded at this time. Recommend PT/OT therapy evaluation. Dietary following as patient is maintained on tube feeds and tolerating. 12/31/2023 Patient seen in follow-up this morning with no plans of surgical intervention at this time recommending continuing with pigtail catheter and monitoring drainage. Patient is continued on IV antibiotics in the form of meropenem with infectious disease following and will continue. Patient does have a PICC line and will continue outpatient IV antibiotics. Recommend repeat chest x-rays to monitor improvement in empyema. Patient is afebrile with no reports of worsening shortness of breath. Patient denies chest pain. Patient reports feeling slightly constipated and has been on a number of medications for pain, will make bowel regimen scheduled as well as as needed. Encouraged to increase activity as tolerated. Review of systems: Constitutional: No reports of fatigue, fever, or chills Cardiovascular: No reports of chest pain or palpitations Respiratory: reports of continued shortness of breath with no worsening, although stable GI: No reports of nausea, vomiting, or diarrhea, reports that having a bowel movement in a couple of days, reports passing gas : No reports of dysuria or retention Neurovascular: reports of generalized weakness All medications have been reviewed PHYSICAL EXAMINATION: Patient is sitting up in the bed, appears less anxious, awake alert and oriented. Thin built, emaciated, ill-appearing, elderly appearing, has tracheostomy currently maintained on oxygen with a trach collar 40%. HEENT: Normocephalic. Neck is supple. Pupils reactive. Nostrils clear. Oral cavity is moist. Neck reveals no JVD, carotid bruits, or thyromegaly. CHEST EXAMINATION: Trachea is central. Symmetrical expansion. Bibasilar coarse sounds and crackles. Nonlabored breathing.. Right pigtail catheter noted with continued purulent drainage noted CARDIAC: S1, S2 muffled ABDOMEN: Soft. Thin, scaphoid bowel sounds hypoactive. No organomegaly. No abdominal bruits. PEG tube noted Extremities: reveal no edema. No clubbing or cyanosis Neurologically awake, alert, oriented x3. Able to move all extremities. No gross focal neurological deficits.. Diffusely weak Skin: No rash or skin lesions. Psychiatric: Cooperative. Non-suicidal Musculoskeletal: No joint swelling or deformity. Assessment: Acute large right-sided hydropneumothorax status post chest tube placement with decrease in size of the right-sided hydropneumothorax and partial reexpansion. Acute on chronic hypoxemic respiratory failure secondary to above, on trach collar FiO2 is 40% and O2 is 11 L Right-sided empyema, status post pigtail catheter placement, status post daily alteplase administration through chest tube Acute hemoptysis on admission, resolved History of laryngeal cancer status post chemoradiation in July 2023 and tracheostomy and PEG tube placement. Patient had PET scan done in September 2023 showed persistent uptake in the posterior lateral right cord level compatible with neoplasm. Patient declined biopsy on previous admission recently Recent admission for from 11/19/2023 to 12/17/2023 postobstructive pneumonia and also CT evidence of lobular heterogenous mass and necrotic components in the right middle lobe. Status post bronchoscopy and biopsy. BAL cultures negative and biopsies nondiagnostic for malignancy. Hypothyroidism History of Graves' disease COPD Ongoing nicotine addiction DVT prophylaxis with heparin subcu GI prophylaxis Full code Plan: Patient is on humidified oxygen via trach collar with an FiO2 of 40% and oxygen is 11 L. Weaning as tolerated. Patient has been adjusting oxygen saturations as needed Patient had been receiving daily alteplase for continued empyema. Patient continues with drainage from the right pigtail catheter with no plans of surgical intervention per CT surgery. Continue with pigtail catheter for now with concerns of recurrence if removed Patient is being continued on IV antibiotics in the form of cefepime with infectious disease following. Patient does have a PICC line and will require 2 weeks of antibiotics on discharge. 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 Continue with breathing treatments Continue with pain management and bowel regimen. Patient with significant weakness as well as significant comorbidities will consult PT/OT and discuss further with case management regarding discharge planning once patient is stabilized. Family feels he is unable to care for himself and would benefit from ECF. Patient will require IV antibiotics on discharge given this empyema and extensive pneumonia. Due to multiple complex medical issues, overall prognosis is poor and guarded The impression and plan of care has been dictated by Virginie Urbina, Nurse Practitioner as directed. Dr. Andreas MD I have performed a history and examination and MDM of this patient, discussed the same with the dictator, and agree with the dictator's assessment and plan as written ,documented as a scribe. Based on total visit time, I have performed more than 50% of the visit. Objective - Vital Signs Vital signs: Vital Signs Temp 97.8 F 12/31/23 08:40 Pulse 94 12/31/23 08:40 Resp 18 12/31/23 08:40 BP 88/55 12/31/23 08:40 Pulse Ox 94 L 12/31/23 08:40 FiO2 28 12/31/23 13:33 Intake & Output 12/30/23 12/31/23 12/31/23 18:59 06:59 18:59 Output Total 140 760 20 Balance -140 -760 -20 Weight 66.9 kg Output: Chest Tube Drainage 140 60 20 Chest Tube Right 140 60 20 Posterior Chest Urine 700 Other: Voiding Method Toilet Toilet Toilet Urinal Urinal Urinal - Labs CBC & Chem 7: 12/30/23 10:17 12/30/23 10:17 Labs: Abnormal Lab Results - Last 24 Hours (Table) 12/31/23 12/31/23 Range/Units 00:12 12:22 POC Glucose (mg/dL) 114 H 113 H (70-110) mg/dL Microbiology - Last 24 Hours (Table) 12/21/23 08:00 Acid Fast Bacilli Smear - Preliminary Pleural Fluid Acid Fast Bacilli Culture - Preliminary
[2024-01-01] MEDS: PANTOPRAZOLE 40 MG TABLET PO SCH (06:08)
[2024-01-01 06:12] LABS: Glucose,Whole Blood 89 mg/dL (70-110)
[2024-01-01 06:47] LABS: Basophils % (A) 0 %; Eosinophils # (A) 0.1 k/uL (0-0.7); Eosinophils % (A) 3 %; HCT 27.5 % (39.0-53.0); HGB 8.2 gm/dL (13.0-17.5); Hypochromasia Marked; Lymphocytes # (A) 0.6 k/uL (1.0-4.8); Lymphocytes % (A) 13 %; MCH 30.7 pg (25.0-35.0); MCV 102.6 fL (80.0-100.0); Macrocytosis Moderate; Mean Platelet Volume 8.7; Monocytes # (A) 0.2 k/uL (0-1.0); Monocytes % (A) 5 %; Neutrophils # (A) 3.4 k/uL (1.3-7.7); Neutrophils % (A) 76 %; Platelet Count 365 k/uL (150-450); RBC 2.68 m/uL (4.30-5.90); RDW 15.6 % (11.5-15.5); WBC 4.5 k/uL (3.8-10.6)
[2024-01-01 06:54] LABS: African American GFR (CKD) >90 (>60 ml/min/1.73 sqM); Anion Gap 1 mmol/L; Blood Urea Nitrogen 13 mg/dL (9-20); Calcium 8.2 mg/dL (8.4-10.2); Carbon Dioxide 36 mmol/L (22-30); Chloride 98 mmol/L (98-107); Glucose 83 mg/dL (74-99); Non-African American GFR(CKD) >90 (>60 ml/min/1.73 sqM); Potassium 4.5 mmol/L (3.5-5.1); Sodium 135 mmol/L (137-145)
--- NOTE | 2024-01-01 07:34 | XR ---
EXAMINATION TYPE: XR chest 1V portable DATE OF EXAM: 01/01/2024 Comparison: 12/31/2023 Clinical History: 58-year-old male empyema, sob Findings: Tracheostomy cannula. Heart normal size. Pigtail pleural catheter at the right base. Prominent subcut aneous emphysema along the right chest wall. Loculated pleural air collection at the right base measu ring 10.4 x 2.3 cm versus 12.1 x 1.9 cm, previously. Additional patchy opacity at the right lower curt g also remains. Impression: Pigtail pleural catheter at the right base with similar loculated pleural air collection. Adjacent pa tchy right basilar opacity also relatively similar. Subcutaneous emphysema along the right chest wall is unchanged as well.
[2024-01-01] MEDS: polyethylene glycoL 3350 17 GM POWD.PACK PEG/G-TUBE SCH (08:01)
[2024-01-01 11:20] LABS: Glucose,Whole Blood 115 mg/dL (70-110)
--- NOTE | 2024-01-01 14:42 | P.PN ---
Subjective Progress Note Date: 01/01/24 Principal diagnosis: Acute hydropneumothorax/empyema with pneumothorax Patient is a 58-year-old white male with past medical history significant for known laryngeal cancer status post tracheostomy, PEG tube insertion, chronic ongoing tobacco dependence, hypothyroidism, Graves' disease, diverticulosis. Patient's laryngeal cancer was previously treated with chemoradiation. No current treatment. Patient recently had a PET scan done September, which revealed persistent uptake in the posterior lateral right cord level compatible with neoplasm. There was a right lower lobe pulmonary nodule measuring 1.2 cm with SUV value of 5.2, suspicious for either primary lung cancer versus metastasis of his laryngeal cancer. He had previously declined biopsy in the past, however, the patient had a recent hospital admission 12/09/2023 through 12/17/2023 for possible postobstructive pneumonia. His CT of the chest during that admission showed lobular heterogenous mass with internal cystic and necrotic components centered in the right middle lobe. Favored to represent interval progression of the patient's known malignant disease. He did have a bronchoscopy with BAL on 12/09/2023. Microbiology has remained negative. Biopsies taking were nondiagnostic for malignancy. Patient ended up going home on hospice care. While at home, he had episodes of hemoptysis and was very short of breath. He ended up calling 911. He has changed his decision to proceed with hospice. In fact, he wants to be full code. He is currently in the emergency room, room 1. He is sitting up in the stretcher, in no acute distress, he is currently on room air. He denies any fevers. Denies any chest pain. Denies trauma. Reports hemoptysis, unable to quantify how much. There is a trach collar lying in his lap set at 35%, however, he does not wish to wear this. Follow-up chest CT this admission shows interval development of a large right hydropneumothorax. There was also consolidative changes around the right pulmonary hilum thought to represent atelectasis with areas of cavitation in the area of the the previously described mass. There are retrained secretions predominantly within the right main bronchus, right lower lobe, and right middle lobe large airways. A right-sided chest tube was placed by the ER physician. This is currently hooked to continuous suction at 20 cm of H2O. No observable airleak. Approximately 450 mL of serosanguineous drainage in the collection chamber. A follow-up chest x-ray shows the right-sided chest tube in place, with a significant decrease in size of the right sided hydro and pneumothorax and partial reexpansion. CBC this admission, WBC count 16.9, hemoglobin 11, hematocrit 34.6, platelets 475. CMP this admission is unremarkable. Normal saline infusing at 75 mL/h. Patient was empirically started on Zosyn. Patient is hemodynamically stable. I saw this patient in the emergency department. The patient already had a right-sided chest tube in place. Output was noted. The fluid is rather cloudy. I suspect an underlying empyema/complicated pleural infection. I also reviewed the earlier CAT scan of the chest that was done back in November 2023. At that time, the patient had a masslike consolidation involving the right midlung area and this could have represented an area of lung abscess. Note that the bronchoscopy endobronchial lavage came back negative at that time.I repeated the chest x-ray from this afternoon and the right-sided chest tube is in place and there is a residual right-sided pneumothorax and there is persistent complex collection in the right lung compatible with his history of pulmonary infection/empyema. The patient is currently on a broad-spectrum antibiotic utilizing Zosyn. As far as the blood work, the procalcitonin level is at 0.22. Rest of the blood work was noted. He is clinically and hemodynamically stable with a pulse ox of 91% on room air oxygen. Communicating. He has a tracheostomy tube in place. On today's evaluation of 12/21/2023, the patient is being seen for a follow-up. Awaiting the pleural fluid analysis. Noted output from the chest tube is minimal and the patient has put out minimal amount of output since yesterday. Total amount of output has not been in the order of 500 cc since the patient arrived to the medical floor. Procalcitonin level is at 0.22. The white cell count is currently at 15.2 with a hemoglobin 10.5 and a platelet count of 5-66. The patient remains on Zosyn and vancomycin. Repeat chest x-ray was done today and it showed no significant interval change compared to yesterday. The chest tube is in good location. There is a very tiny right apical pneumothorax measuring approximately 6 mm in size. There is also pleural-parenchymal opacity in the right lung base that remains unchanged and obviously this needs to be further investigated by CAT scan of the chest and this will be ordered in the form of a noncontrast enhanced CAT scan to be done today. The patient is on room air oxygen. The patient has tracheostomy tube in place. The blood cultures are negative. Sputum samples also sent and the results are still pending for now. Pleural fluid analysis also pending. On today's evaluation of 12/22/2023, I am seeing the patient for a follow-up. The patient is currently on a trach collar with 10 L of oxygen with an FiO2 of 40%. He is calm and comfortable and is not having any significant respiratory distress. The pleural fluid analysis shows no microbial growth for now. Nevertheless, the fluid is an exudate with elevated LDH and protein and low sugar very much consistent with a complicated parapneumonic effusion/. I also repeated the CAT scan of the chest on this patient and this was a noncontrast CAT scan of the chest that was completed yesterday and shows some persistence in the right-sided pleural effusion in the posterior right lung base along with multiple air-fluid levels present. The chest tube is present anteriorly. Noted output from the chest tube has been minimal at this point in time. No evidence of any significant pneumothorax. Similar findings were seen on today's chest x- ray. Labs from today are still pending for now. Patient remains on a combination of Zosyn and vancomycin. I discussed the findings with the patient I also discussed the findings with interventional radiology. The plan is to put the pigtail catheter in the right lower lobe complex fluid collection as noted on the CAT scan of the chest. Meanwhile, the patient continues to receive enteral feeding for nutritional support. He is quite debilitated. On today's evaluation of 12/23/2023, the patient is being seen for a follow-up. Doing well, no specific complaints, on a trach collar with FiO2 of 40% 10 L oxy gen flow. White cell count is at 9.4 with a hemoglobin of 8.9. BUN 11 creatinine of 0.6 and sodium levels at 142. As mentioned yesterday, the pigtail catheter was inserted into the posterior right chest and approximately 900 cc of purulent material was aspirated. Cultures are still pending for now. Repeat chest x-ray was done today and the chest x-ray is showing pigtail catheter in the right lung base. The patient has a loculated right-sided pneumothorax in the lateral aspect of the right lower chest. The pleural-parenchymal opacity in the right lung base is improved. There is some increased density in the medial aspect of the left lung base. The right upper lobe is essentially clear at this point in time. Right-sided chest tube is also in place. There is no evidence of any air leak. No output from the right-sided chest tube. The sputum culture was positive for a combination of Klebsiella and Burhdolderia and the patient is still on a combination of Zosyn and vancomycin. Awaiting cultures from the pleural fluid. Awake and alert and communicating. Continues to receive enteral feeding for additional support. Case was discussed with cardiothoracic surgery. Infectious disease consultation has also been obtained regarding this ongoing empyema. The patient was kept on the same antibiotic coverage. On today's evaluation of 12/24/2023, the patient has no specific complaints. The right-sided chest that was notable to the pigtail catheter has been kept in place. Repeat chest x-ray from today showed essentially stable right-sided hydropneumothorax. The right total chest tube catheter is still in place. There is still some parenchymal pulmonary opacity in the right lung base. Nevertheless, the patient is receiving daily therapy administration and since yesterday, the patient has produced another 400 cc of purulent material through the pigtail catheter. 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 Vancomycin has been discontinued. Noted the sputum and the pleural fluid cultures came back positive for the same microorganism. Infectious disease on the case. The patient remains afebrile. WBC count is at 8.8 with a hemoglobin 8.4 and platelet count of 460. BUN is at 14 with a creatinine of 0.8 and a sodium levels at 141. Awake and alert and communicating. Continues to receive enteral feeding for respiratory support. Terms of his oxygenation currently is on a 40% trach collar. No interval worsening shortness of breath. On today's evaluation of 12/25/2023, I am seeing the patient for a follow-up. Since yesterday, the patient has another additional 500 cc through the chest tube. The patient remains on 40% trach collar. No interval worsening shortness of breath. Respiratory status remained stable. Pigtail catheter is in place. Catheter installation of tPA was done today. Based on today's chest x-ray, the findings are essentially similar with an area of consolidation in the right pos terior lung base with a stable right-sided hydropneumothorax. There is stable pleural-parenchymal opacity in the right lung base. The pigtail catheter is in good location. The patient continues to be on IV meropenem. At the same time, the patient experienced some GI upset. X-ray of the abdomen was done that showed nonspecific findings. Abdomen is nondistended. Tube feeds were placed on hold for yesterday and this will be restarted at a lower rate. On today's evaluation of 12/26/2023, the patient is doing well. Remains on a 40% trach collar. No respiratory distress. No fever or chills. Remains on IV meropenem. Output from the pigtail catheter has been noted and the patient has produced approximately 400 cc of output over the past 24 hours. A follow-up CAT scan of the chest was done without contrast this morning and a CAT scan of the chest showed a significant improvement in the previously described multi air- fluid level and there is improvement in the right-sided hydropneumothorax although there is some residual pneumothorax along the right lateral posterior chest. There is also some perihilar cavitary lesions. Lesions have decreased in size and currently measuring up to 2.7 cm in dimension. Tracheostomy is still in place. The pigtail catheter is in a good location. The right-sided hydropneumothorax is dropped from 17 to 3 cm meter in size. There is emphysema tous changes with paraseptal emphysema in the upper lobes bilaterally.The white cell count is at 9.3 with a hemoglobin of 8 and a platelet count of 450. BUN is at 40 with a creatinine of 0.9 and sodium levels at 142. Patient was reevaluated today on 12/27/2023, patient remains on 40% trach collar, continues to have chest tube in place, remains on antibiotics as per infectious disease, presently on Merrem. Patient is being treated for empyema and hydropneumothorax. Labs including CBC and basic metabolic profile are normal patient seems to be comfortable, I believe infectious disease is planning treatment for at least 2 weeks for his empyema using Merrem. Patient does have a PICC line in place, wondering if this could be done at home but I do not believe the chest tube is ready to be removed yet, continues to drain, and the drainage is still purulent. Continues to have some pneumothorax but no airleak noted Reevaluate today on 12/28/2023, patient remains on 40% trach collar. Continues to have right-sided chest tube/pigtail catheter in place, continues to drain however the drainage is becoming minimal. Last CT of the chest did show evidence of hydropneumothorax, updated thoracic surgery on the case, apparently Dr. Lubin is aware of the case, and he has no plans for decortication will have thoracic surgery evaluate the patient again, but over the phone no plans for decortication. In the meantime the patient is receiving antibiotics, and the plan is to give him 2 full weeks of IV antibiotics. Patient does not seem to be in distress, however I am quite concerned that once we remove the pigtail catheter, the fluid is going to build up again, and the patient may have a bit of a trapped lung. Was reevaluated today on 12/29/2023, patient continues to have pigtail catheter in place, continues to have some purulent secretions out of the pigtail catheter/right pleural space. Surgery is yet to decide on whether the patient would benefit from decortication. Patient seems to have a loculated right-sided pneumothorax and what seems to be a right trapped lung. Patient had multiple lytic instillation in the right pleural space, chest x-ray today showed improved in the loculation/loculated pneumothorax, and he continues to have subcutaneous emphysema with bibasilar infiltrates. WBC count is 9.2 hemoglobin is 8.7 basic metabolic profile is normal bicarb is 36, clinically the patient is feeling better remains on antibiotics as per ID on the case, still on Merrem. Patient was not today on 12/30/2023, patient is doing better, breathing easier, remains on trach collar, he is still draining from his pigtail catheter, had about 180 cc of purulent drainage from the pigtail catheter over the last 24 hours. Chest x-ray continues to show a loculated right-sided pneumothorax, thoracic surgery is not planning any surgical intervention after they reviewed his CT of the chest and his follow-up x-rays of the chest. Patient remains on antibiotics as per infectious disease on the case, he is receiving Merrem, patient has received almost 2 weeks of antibiotics, his white cell count normalized, discussed with surgery, no plans for surgical intervention, however considering the patient continues to have some fairly good amount of drainage, I would recommend keeping the pigtail catheter in place for now. And again the patient is still receiving Merrem as per ID on the caseWBC count is 5.3 hemoglobin 8.3 basic metabolic profile is normal renal profile is normal, in the meantime patient remains on 40% trach collar Reason for on 01/01/2024, patient is basically about the same, however it is nice to see that the patient has no more air leak in the chest tube today, and there is minimal drainage overnight. I believe we are about to consider removing his pigtail catheter on Wednesday, and consider discharging the patient home on Wednesday to follow-up on outpatient basis. Patient normally sees Dr. Whipple for his right midlung nodule and this could be followed on outpatient basis. His WBC count today is 4.5 hemoglobin 8.2 electrolytes are normal renal profile is normal. Objective - Vital Signs Vital signs: Vital Signs Temp 97.5 F L 01/01/24 11:25 Pulse 75 01/01/24 11:25 Resp 18 01/01/24 11:25 BP 98/59 01/01/24 11:25 Pulse Ox 100 01/01/24 11:25 FiO2 28 01/01/24 12:38 Intake & Output 12/31/23 01/01/24 01/01/24 18:59 06:59 18:59 Intake Total 10 Output Total 100 570 945 Balance -100 -263 -735 Intake: IV 10 Invasive Line 3 10 Output: Chest Tube Drainage 100 20 45 Chest Tube Right 100 20 45 Posterior Chest Urine 550 900 Other: Voiding Method Toilet Toilet Toilet Urinal Urinal Urinal - Exam GENERAL EXAM: 58-year-old white male on 40% trach collar, not in distress HEAD: Normocephalic and atraumatic EYES: Normal reaction of pupils, equal size. NOSE: Clear with pink turbinates. THROAT: No erythema or exudates. NECK: No masses, no JVD. Tracheostomy insertion site clean and dry. CHEST/lungs: Diminished breath sounds at the bases, pigtail catheter is noted and draining purulent and serosanguineous fluid. No air leak is noted today. CVS: S1 and S2 normal with no audible murmur, regular rhythm. No extra heart sounds ABDOMEN: No hepatosplenomegaly, active bowel sounds, no guarding or rigidity. PEG tube site clean and dry. SPINE: No scoliosis or deformity SKIN: No rashes CENTRAL NERVOUS SYSTEM: Alert oriented x 3 EXTREMITIES: No clubbing edema or cyanosis - Labs CBC & Chem 7: 01/01/24 06:15 01/01/24 06:15 Labs: Abnormal Lab Results - Last 24 Hours (Table) 01/01/24 01/01/24 01/01/24 Range/Units 06:15 06:15 11:19 RBC 2.68 L (4.30-5.90) m/uL Hgb 8.2 L (13.0-17.5) gm/dL Hct 27.5 L (39.0-53.0) % MCV 102.6 H (80.0-100.0) fL MCHC 30.0 L (31.0-37.0) g/dL RDW 15.6 H (11.5-15.5) % Lymphocytes # 0.6 L (1.0-4.8) k/uL Sodium 135 L (137-145) mmol/L Carbon Dioxide 36 H (22-30) mmol/L Creatinine 0.54 L (0.66-1.25) mg/dL POC Glucose (mg/dL) 115 H (70-110) mg/dL Calcium 8.2 L (8.4-10.2) mg/dL Microbiology - Last 24 Hours (Table) 12/21/23 08:00 Fungal Culture - Preliminary Pleural Fluid Assessment and Plan Assessment: Impression: Acute empyema with acute right hydropneumothorax requiring drainage via pigtail catheter, cultures positive for burkhoderia cepacia complex Acute hemoptysis, resolved Acute on chronic hypoxic respiratory failure presently on 40% trach collar History of laryngeal cancer status post chemoradiation and tracheostomy History of PEG tube insertion Underlying COPD Hypothyroidism Chronic ongoing tobacco dependence Recommendation: Continue pigtail catheter in place, will likely remove on Wednesday by radiology. And once is removed the patient could be considered for discharge home. Continue antibiotics/Merrem Chest x-ray today was reviewed continues to have a loculated pneumothorax but overall I believe there is improvement, thoracic surgery not planning any surgical intervention Continue IV Merrem Continue oxygen via trach collar Continue nutritional support Prognosis remains very guarded Will continue to follow Time with Patient: Less than 30
[2024-01-01 16:27] LABS: Glucose,Whole Blood 124 mg/dL (70-110)
--- NOTE | 2024-01-01 19:52 | P.PN ---
Subjective Progress Note Date: 01/01/24 Principal diagnosis: Reason for follow-up is pneumonia/empyema Patient is a 58-year male with a history of squamous cell carcinoma head and neck s/p trach and PEG recent CT chest with heterogeneous mass right middle lobe s/p bronchoscopy culture negative presenting back to the hospital with worsening shortness of breath with a repeat CT shows large right hydropneumothorax s/p chest tube placement and concerning for empyema. On today's evaluation that is 01/01/2024,the patient remains to be afebrile, patient is on 5 L trach collar oxygen however the patient denies any shortness of breath no chest pain and cough has decreased in intensity.Patient denies having any nausea or vomiting, no abdominal pain and no diarrhea has been reported. Patient white count is 4.5, creatinine 0.54 Objective - Vital Signs Vital signs: Vital Signs Temp 97.5 F L 01/01/24 11:25 Pulse 75 01/01/24 11:25 Resp 18 01/01/24 11:25 BP 98/59 01/01/24 11:25 Pulse Ox 100 01/01/24 11:25 FiO2 28 12/31/23 21:20 Intake & Output 12/31/23 01/01/24 01/01/24 18:59 06:59 18:59 Intake Total 10 Output Total 100 295 945 Balance -100 -589 -938 Intake: IV 10 Invasive Line 3 10 Output: Chest Tube Drainage 100 20 45 Chest Tube Right 100 20 45 Posterior Chest Urine 550 900 Other: Voiding Method Toilet Toilet Toilet Urinal Urinal Urinal - Exam GENERAL DESCRIPTION: Middle-age male up in bed in no distress RESPIRATORY SYSTEM: Unlabored breathing , decreased breath sounds at bases HEART: S1 S2 regular rate and rhythm , ABDOMEN: Soft , no tenderness EXTREMITIES: No edema feet - Labs CBC & Chem 7: 01/01/24 06:15 01/01/24 06:15 Labs: Abnormal Lab Results - Last 24 Hours (Table) 12/31/23 01/01/24 01/01/24 Range/Units 12:22 06:15 06:15 RBC 2.68 L (4.30-5.90) m/uL Hgb 8.2 L (13.0-17.5) gm/dL Hct 27.5 L (39.0-53.0) % MCV 102.6 H (80.0-100.0) fL MCHC 30.0 L (31.0-37.0) g/dL RDW 15.6 H (11.5-15.5) % Lymphocytes # 0.6 L (1.0-4.8) k/uL Sodium 135 L (137-145) mmol/L Carbon Dioxide 36 H (22-30) mmol/L Creatinine 0.54 L (0.66-1.25) mg/dL POC Glucose (mg/dL) 113 H (70-110) mg/dL Calcium 8.2 L (8.4-10.2) mg/dL 01/01/24 Range/Units 11:19 RBC (4.30-5.90) m/uL Hgb (13.0-17.5) gm/dL Hct (39.0-53.0) % MCV (80.0-100.0) fL MCHC (31.0-37.0) g/dL RDW (11.5-15.5) % Lymphocytes # (1.0-4.8) k/uL Sodium (137-145) mmol/L Carbon Dioxide (22-30) mmol/L Creatinine (0.66-1.25) mg/dL POC Glucose (mg/dL) 115 H (70-110) mg/dL Calcium (8.4-10.2) mg/dL Microbiology - Last 24 Hours (Table) 12/21/23 08:00 Fungal Culture - Preliminary Pleural Fluid Assessment and Plan (1) Empyema Current Visit: Yes Status: Acute Code(s): J86.9 - PYOTHORAX WITHOUT FISTULA SNOMED Code(s): 156168855 (2) Leukocytosis Current Visit: Yes Status: Acute Code(s): D72.829 - ELEVATED WHITE BLOOD CELL COUNT, UNSPECIFIED SNOMED Code(s): 527347049 (3) Pneumonia Current Visit: Yes Status: Acute Priority: High Code(s): J18.9 - PNEUMONIA, UNSPECIFIED ORGANISM SNOMED Code(s): 531278113 Plan: 1patient presenting to the hospital with increasing shortness of breath and hemoptysis in this patient who did have a CT of the chest with evidence of moderate right effusion with multiple air-fluid level concerning for empyema status post chest tube placement 2-the patient sputum as well as sputum culture did grew Burkholderia cepacia that is intermediate to ceftazidime sensitive to meropenem 3-patient is afebrile patient did have normalization of the white count, 4-patient CT surgery not planning for any surgical intervention 5-patient is currently being treated with the meropenem on the basis on sensitivity to continue and will monitor clinical course closely Dictation was produced using [email or web address] dictation software. please excuse any grammatical, word or spelling errors. Time with Patient: Less than 30
[2024-01-02 00:04] LABS: Glucose,Whole Blood 88 mg/dL (70-110)
--- NOTE | 2024-01-02 02:39 | P.PN ---
Subjective Progress Note Date: 01/01/24 Patient is a 58-year-old male with a past medical history of laryngeal cancer status post chemoradiation in July 2023 last tracheostomy and PEG tube placement, COPD, hypothyroidism, history of Graves' disease and currently everyday smoker presents to ER with worsening shortness of breath and hemopty sis. Patient was recently admitted to the hospital from 12/10/2023 to 12/17/2023 and was treated for postoperative pneumonia and COPD. Patient was discharged under hospice care. Patient states that he has been having copious amounts of secretions from the tracheostomy. Denies any fever. No nausea or vomiting. Patient had recent PET scan in September 2023 which showed persistent uptake in the posterior lateral right vocal cord compatible with neoplasm. Patient previously declined biopsy. Chest x-ray on admission showed increasing lucency throughout the right lung concerning for pneumothorax. Small pleural effusion may also be present. CT chest showed interval development of large right pneumothorax with large pneumothorax and small heterogenous complex right pleural effusion. There is consolidation changes around the right pulmonary hilum thought to represent atelectasis in the area of cavitation possibly secondary to prior mass. Retained secretions predominantly within the right main bronchus, right lower and right middle lobe large airways. Correlate for retained secretions. Co nsider bronchoscopy. Chest tube was placed by ER physician. Repeat chest x-ray showed right-sided c hest tube in place with significant decrease in size of right-sided hydro pneumothorax and partial reexpansion. Laboratory data showed WBC 16.9 hemoglobin 11.0 and platelets 475 Sodium 134 potassium 5.1 chloride 105 bicarb is 22 BUN 19 and creatinine 0.41 and blood sugar 64 albumin 2.6 and procalcitonin level is elevated to 0.22 12/21/2023 Patient is seen in follow-up today continues to report significant shortness of breath and pain in multiple areas including the right chest where his chest tube is. Home medications reviewed and resumed as appropriate and patient is continued on Dilaudid and will resume [place] [facility] and his fentanyl patch. Follow-up chest x-ray today shows no significant change in pleural parenchymal opacity of the right lung base with slightly improved right apical pneumothorax. CT chest is ordered and pending at this time. Patient is continued on IV antibiotics in the form of Zosyn and vancomycin being added. Patient is afebrile with no reports of chest pain or palpitations. Patient continues on trach collar with a flow rate of 8 and FiO2 is 35%. Tolerating tube feeds thus far and will also add bowel regimen given he is on a number of different narcotics. 12/22/2023 Patient is seen and evaluated in follow-up maintained on trach collar and high flow oxygen with continued right chest tube. There is noted fluid collection on the CT imaging from yesterday and IR has been consulted possible pigtail catheter placement as it appears somewhat loculated. Present right-sided chest tube with minimal output noted per nursing staff. Patient is maintained on antibiotics and will consult infectious disease and appreciate input and recommendations. Cultures all remain pending thus far. Cytology is pending as well. Overall prognosis remains poor and guarded at this time. Patient wishes to remain full code. 12/23/2023 Patient seen and evaluated in follow-up status post pigtail catheter placement and CT surgery has been consulted. Patient to receive alteplase for loculated empyema noted on the right. Patient is continued on breathing inhalational treatments along with high flow oxygen via trach collar. Patient is reporting significant pain and will adjust medications appropriately. Had a lengthy discussion with the patient regarding overall CODE STATUS and patient wishes to remain full code does not currently want hospice. Discussed with daughter over the phone after discussing with patient about overall prognosis and treatment plan moving forward. Daughter feels he would benefit from rehab as all of his comorbidities have become more difficult to handle and she feels he is not safe to return home and manage his care himself. Case management is following and working with the patient. Will have PT/OT therapy evaluate the patient. Inf ectious disease following and patient is maintained on broad spec. 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 Patient may likely require IV antibiotics on discharge. Patient will require a PICC line and no staff available until Wednesday to have a PICC line placed. Patient is currently afebrile and denies chest pain or palpitations. Patient reports continued shortness of breath off with secretions. Patient tolerating tube feedings thus far and will continue on bowel regimen as well as patient is receiving IV narcotics. 12/24/2023 Patient is seen and evaluated in follow-up with multiple medical consultations following. Patient remains on trach collar 30% and reports no significant improvements in dyspnea although reports about the same. Patient continues with pigtail catheter currently receiving alteplase daily and chest x-rays with CT surgery following. Patient continues to have purulent drainage with cultures mentioned above with infectious disease following. Patient is continued on meropenem and vancomycin is discontinued. Patient continues on tube feeds and reports tolerating although feels for and reports not having a bowel movement over the last 5 days. Will obtain abdominal x-ray and continue bowel regimen. Recommend Dulcolax suppository and this was discussed with nursing at bedside. Patient is agreeable. Patient is continued on a number of pain medications which would make me concerned for constipation. Minimal bowel sounds noted. Patient denies abdominal pain but does report feeling full. Per nursing staff as well patient's insurance information and paperwork has been faxed with daughter at the bedside regarding continuation of [employer] insurance through his employer. Case management is following. Patient may require IV antibiotics on discharge and continued nursing care at an [facility]. Encouraged to increase activity as tolerated. 12/25/2023 Patient is sitting on side of bed. Awake alert and oriented 3. Unable to communicate due to trach collar with 40% FiO2. Patient had additional 5 cc through chest tube. No complaints of chest pain. Breathing status improving. Chest x-ray today showed right basilar pigtail pleural catheter terminates over the medial lung base. Small amount of gas in the chest wall adjacent to the tube. Similar amount of air within the right-sided pleural collection compatible with hydropneumothorax and empyema. Stable pleural-parenchymal o pacity in the right lung base and increased density in the medial left lung base. Laboratory data showed reviewed. Pulmonary is on board. 12/26/2023 Patient is sitting on side of bed. Awake alert and oriented x 3. Trach collar with 40% FiO2. No complaints of chest pain or worsening shortness of breath. Patient is having 400 cc fluid output from the pigtail catheter. Patient is afebrile otherwise. No nausea vomiting. CT chest was done today showed complex pleural collection seen previously is much improved with previously noted multiple air-fluid levels essentially resolving hydropneumothorax persisting. Persistent right perihilar cavitary lesion. Patient appears smaller in size and currently measures 2.7 cm in greatest dimension versus 4.3 cm. Laboratory data showed WBC 9.3 hemoglobin 8.0 and platelets 450 and MCV 103.9, sodium 142 potassium 3.6 chloride 106 bicarb is 33 BUN 14 and creatinine 0.599 and blood sugar is 78 and calcium 8.0. Pulmonary is on board. Patient on antibiotics meropenem. 12/27/2023 Patient is seen and evaluated in follow-up with multiple medical consultations following. Patient is continued on IV antibiotics with infectious disease following currently on meropenem and discussing possibly requiring IV antibiotic therapy on discharge. Patient does have a PICC line. Patient continues with right pigtail catheter currently receiving alteplase with CT surgery following as there continues to be purulent drainage noted. Discussing possible washout of the right lung. Patient continues on pain management as well as bowel regimen and will continue. Wean FiO2 as tolerated. Patient currently on 40% FiO2 trach collar. Patient is afebrile with no reports of worsening shortness of breath. Patient denying chest pain or palpitations. Patient is tolerating tube feedings and recommend to continue with head of the bed elevated 30 to 45 degrees at all times and monitoring for residuals. 12/28/2023 Patient is seen and evaluated in follow-up continues to be receiving alteplase via pigtail catheter on the right. Per nursing staff there has been minimal output noted and patient remains on IV antibiotics with infectious disease following. Plan is for 2 weeks of antibiotics outpatient. Pulmonary following as well maintained on breathing inhalational treatments and discussing with CT surgery about possible decortication as there is concern once the catheter is removed, it will fill up again and recur. Follow-up on chest x-ray in the a.m. Patient is currently afebrile with no reported chest pain or worsening shortness of breath. Patient is tolerating tube feeds and reports had a bowel movement a few days ago. Recommend to continue with bowel regimen daily as patient is receiving narcotic medication. Patient encouraged to increase activity as tolerated. Will have physical therapy evaluate the patient. 12/29/2023 Patient is seen in follow-up this morning continues with right pigtail catheter and per patient overnight there was copious amounts of drainage noted and patient has been receiving alteplase administrations. Pulmonary following discussing with CT surgery regarding possible decortication and awaiting reevaluation by CT surgery. Patient maintained on antibiotics with infectious disease following and will continue. Patient is concerned of going home continued infection and becoming more severe and requiring hospitalization again. Patient lives alone and unsure if he will be able to handle all this. Recommend ECF on discharge. Patient is afebrile and denies chest pain other than at the chest tube site with no palpitations. Patient denying worsening shortness of breath. 12/30/2023 Patient is seen and evaluated today with pulmonary following closely. Patient continues on trach collar with an FiO2 of 40% and reports breathing is improved. Patient continues on antibiotics in the form of meropenem and will need 2 weeks of antibiotics on discharge. Patient does have a PICC line as well as continued pigtail catheter. Per pulmonary no plans for surgical intervention at this time and recommend continuing with monitoring drainage. Will follow-up with repeat chest x-ray. Patient is afebrile and white count has normalized and CT surgery with no plans of surgical intervention. Prognosis is guarded at this time. Recommend PT/OT therapy evaluation. Dietary following as patient is maintained on tube feeds and tolerating. 12/31/2023 Patient seen in follow-up this morning with no plans of surgical intervention at this time recommending continuing with pigtail catheter and monitoring drainage. Patient is continued on IV antibiotics in the form of meropenem with infectious disease following and will continue. Patient does have a PICC line and will continue outpatient IV antibiotics. Recommend repeat chest x-rays to monitor improvement in empyema. Patient is afebrile with no reports of worsening shortness of breath. Patient denies chest pain. Patient reports feeling slightly constipated and has been on a number of medications for pain, will make bowel regimen scheduled as well as as needed. Encouraged to increase activity as tolerated. 01/01/2024 Patient is seen and evaluated this morning with no acute overnight issues. Patient is having some improvement of the right empyema and continues with right pigtail catheter with some improvements in amount of drainage. Possibly planning for pigtail catheter removal on Wednesday and to discuss further with case management regarding discharge planning and antibiotics. Patient is afebrile with no reports of chest pain or worsening shortness of breath. Patient has been tolerating tube feeding and is continued on bowel regimen. Will discuss further with dietary regarding goal rate and overall amount on tube feeding. Review of systems: Constitutional: No reports of fatigue, fever, or chills Cardiovascular: No reports of chest pain or palpitations Respiratory: reports of continued shortness of breath with no worsening, a lthough stable GI: No reports of nausea, vomiting, or diarrhea, reports not having a bowel movement in a couple of days, reports passing gas : No reports of dysuria or retention Neurovascular: reports of generalized weakness All medications have been reviewed PHYSICAL EXAMINATION: Patient is sitting up in the bed, awake alert and oriented. Thin built, emaciated, ill-appearing, elderly appearing, has tracheostomy currently maintained on oxygen with a trach collar 40%. HEENT: Normocephalic. Neck is supple. Pupils reactive. Nostrils clear. Oral cavity is moist. Neck reveals no JVD, carotid bruits, or thyromegaly. CHEST EXAMINATION: Trachea is central. Symmetrical expansion. Bibasilar coarse sounds and crackles. Nonlabored breathing.. Right pigtail catheter noted with continued purulent drainage noted CARDIAC: S1, S2 muffled ABDOMEN: Soft. Thin, scaphoid bowel sounds hypoactive. No organomegaly. No abdominal bruits. PEG tube noted Extremities: reveal no edema. No clubbing or cyanosis Neurologically awake, alert, oriented x3. Able to move all extremities. No gross focal neurological deficits.. Diffusely weak Skin: No rash or skin lesions. Psychiatric: Cooperative. Non-suicidal Musculoskeletal: No joint swelling or deformity. Assessment: Acute large right-sided hydropneumothorax status post chest tube placement with decrease in size of the right-sided hydropneumothorax and partial reexpansion. Acute on chronic hypoxemic respiratory failure secondary to above, on trach collar FiO2 is 40% and O2 is 11 L Right-sided empyema, status post pigtail catheter placement, status post daily alteplase administration through chest tube Acute hemoptysis on admission, resolved History of laryngeal cancer status post chemoradiation in July 2023 and tracheostomy and PEG tube placement. Patient had PET scan done in September 2023 showed persistent uptake in the posterior lateral right cord level compatible with neoplasm. Patient declined biopsy on previous admission recently Recent admission for from 11/19/2023 to 12/17/2023 postobstructive pneumonia and also CT evidence of lobular heterogenous mass and necrotic components in the right middle lobe. Status post bronchoscopy and biopsy. BAL cultures negative and biopsies nondiagnostic for malignancy. Hypothyroidism History of Graves' disease COPD Ongoing nicotine addiction DVT prophylaxis with heparin subcu GI prophylaxis Full code Plan: Patient is on humidified oxygen via trach collar with an FiO2 of 40% and oxygen is 11 L. Weaning as tolerated. Patient has been adjusting oxygen saturations as needed Patient had been receiving daily alteplase for continued empyema. Patient continues with drainage from the right pigtail catheter with no plans of surgical intervention per CT surgery. Continue with pigtail catheter for now with some improvement noted and possible removal of pigtail catheter on Wednesday and discuss discharge planning with continued antibiotics in the outpatient setting. Patient is being continued on IV antibiotics in the form of cefepime with infectious disease following. Patient does have a PICC line and will require 2 weeks of antibiotics on discharge. 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 Continue with breathing treatments Continue with pain management and bowel regimen. Patient with significant weakness as well as significant comorbidities will consult PT/OT and discuss further with case management regarding discharge planning once patient is stabilized. Family feels he is unable to care for himself and would benefit from ECF. Patient will require IV antibiotics on discharge given this empyema and extensive pneumonia. Will discuss with case management regarding discharge planning and possible discharge in the next few days. Due to multiple complex medical issues, overall prognosis is poor and guarded The impression and plan of care has been dictated by Virginie Urbina, Nurse Practitioner as directed. Dr. Andreas MD I have performed a history and examination and MDM of this patient, discussed the same with the dictator, and agree with the dictator's assessment and plan as written ,documented as a scribe. Based on total visit time, I have performed more than 50% of the visit. Objective - Vital Signs Vital signs: Vital Signs Temp 99.0 F 01/01/24 20:57 Pulse 73 01/01/24 23:30 Resp 18 01/01/24 23:30 BP 111/63 01/01/24 23:30 Pulse Ox 90 L 01/01/24 23:30 FiO2 28 01/01/24 12:38 Intake & Output 01/01/24 01/01/24 01/02/24 06:59 18:59 06:59 Intake Total 10 Output Total 901 8953 328 Balance -595 -4297 -949 Intake: IV 10 Invasive Line 3 10 Output: Chest Tube Drainage 20 45 7 Chest Tube Right 20 45 7 Posterior Chest Urine 550 1400 900 Other: Voiding Method Toilet Toilet Toilet Urinal Urinal Urinal - Labs CBC & Chem 7: 01/01/24 06:15 01/01/24 06:15 Labs: Abnormal Lab Results - Last 24 Hours (Table) 01/01/24 01/01/24 01/01/24 Range/Units 06:15 06:15 11:19 RBC 2.68 L (4.30-5.90) m/uL Hgb 8.2 L (13.0-17.5) gm/dL Hct 27.5 L (39.0-53.0) % MCV 102.6 H (80.0-100.0) fL MCHC 30.0 L (31.0-37.0) g/dL RDW 15.6 H (11.5-15.5) % Lymphocytes # 0.6 L (1.0-4.8) k/uL Sodium 135 L (137-145) mmol/L Carbon Dioxide 36 H (22-30) mmol/L Creatinine 0.54 L (0.66-1.25) mg/dL POC Glucose (mg/dL) 115 H (70-110) mg/dL Calcium 8.2 L (8.4-10.2) mg/dL 01/01/24 Range/Units 16:21 RBC (4.30-5.90) m/uL Hgb (13.0-17.5) gm/dL Hct (39.0-53.0) % MCV (80.0-100.0) fL MCHC (31.0-37.0) g/dL RDW (11.5-15.5) % Lymphocytes # (1.0-4.8) k/uL Sodium (137-145) mmol/L Carbon Dioxide (22-30) mmol/L Creatinine (0.66-1.25) mg/dL POC Glucose (mg/dL) 124 H (70-110) mg/dL Calcium (8.4-10.2) mg/dL
[2024-01-02 06:14] LABS: Glucose,Whole Blood 93 mg/dL (70-110)
[2024-01-02 11:37] LABS: Glucose,Whole Blood 118 mg/dL (70-110)
--- NOTE | 2024-01-02 15:46 | P.PN ---
Subjective Progress Note Date: 01/02/24 Principal diagnosis: Acute hydropneumothorax/empyema with pneumothorax Patient is a 58-year-old white male with past medical history significant for known laryngeal cancer status post tracheostomy, PEG tube insertion, chronic ongoing tobacco dependence, hypothyroidism, Graves' disease, diverticulosis. Patient's laryngeal cancer was previously treated with chemoradiation. No current treatment. Patient recently had a PET scan done September, which revealed persistent uptake in the posterior lateral right cord level compatible with neoplasm. There was a right lower lobe pulmonary nodule measuring 1.2 cm with SUV value of 5.2, suspicious for either primary lung cancer versus metastasis of his laryngeal cancer. He had previously declined biopsy in the past, however, the patient had a recent hospital admission 12/09/2023 through 12/17/2023 for possible postobstructive pneumonia. His CT of the chest during that admission showed lobular heterogenous mass with internal cystic and necrotic components centered in the right middle lobe. Favored to represent interval progression of the patient's known malignant disease. He did have a bronchoscopy with BAL on 12/09/2023. Microbiology has remained negative. Biopsies taking were nondiagnostic for malignancy. Patient ended up going home on hospice care. While at home, he had episodes of hemoptysis and was very short of breath. He ended up calling 911. He has changed his decision to proceed with hospice. In fact, he wants to be full code. He is currently in the emergency room, room 1. He is sitting up in the stretcher, in no acute distress, he is currently on room air. He denies any fevers. Denies any chest pain. Denies trauma. Reports hemoptysis, unable to quantify how much. There is a trach collar lying in his lap set at 35%, however, he does not wish to wear this. Follow-up chest CT this admission shows interval development of a large right hydropneumothorax. There was also consolidative changes around the right pulmonary hilum thought to represent atelectasis with areas of cavitation in the area of the the previously described mass. There are retrained secretions predominantly within the right main bronchus, right lower lobe, and right middle lobe large airways. A right-sided chest tube was placed by the ER physician. This is currently hooked to continuous suction at 20 cm of H2O. No observable airleak. Approximately 450 mL of serosanguineous drainage in the collection chamber. A follow-up chest x-ray shows the right-sided chest tube in place, with a significant decrease in size of the right sided hydro and pneumothorax and partial reexpansion. CBC this admission, WBC count 16.9, hemoglobin 11, hematocrit 34.6, platelets 475. CMP this admission is unremarkable. Normal saline infusing at 75 mL/h. Patient was empirically started on Zosyn. Patient is hemodynamically stable. I saw this patient in the emergency department. The patient already had a right-sided chest tube in place. Output was noted. The fluid is rather cloudy. I suspect an underlying empyema/complicated pleural infection. I also reviewed the earlier CAT scan of the chest that was done back in November 2023. At that time, the patient had a masslike consolidation involving the right midlung area and this could have represented an area of lung abscess. Note that the bronchoscopy endobronchial lavage came back negative at that time.I repeated the chest x-ray from this afternoon and the right-sided chest tube is in place and there is a residual right-sided pneumothorax and there is persistent complex collection in the right lung compatible with his history of pulmonary infection/empyema. The patient is currently on a broad-spectrum antibiotic utilizing Zosyn. As far as the blood work, the procalcitonin level is at 0.22. Rest of the blood work was noted. He is clinically and hemodynamically stable with a pulse ox of 91% on room air oxygen. Communicating. He has a tracheostomy tube in place. On today's evaluation of 12/21/2023, the patient is being seen for a follow-up. Awaiting the pleural fluid analysis. Noted output from the chest tube is minimal and the patient has put out minimal amount of output since yesterday. Total amount of output has not been in the order of 500 cc since the patient arrived to the medical floor. Procalcitonin level is at 0.22. The white cell count is currently at 15.2 with a hemoglobin 10.5 and a platelet count of 5-66. The patient remains on Zosyn and vancomycin. Repeat chest x-ray was done today and it showed no significant interval change compared to yesterday. The chest tube is in good location. There is a very tiny right apical pneumothorax measuring approximately 6 mm in size. There is also pleural-parenchymal opacity in the right lung base that remains unchanged and obviously this needs to be further investigated by CAT scan of the chest and this will be ordered in the form of a noncontrast enhanced CAT scan to be done today. The patient is on room air oxygen. The patient has tracheostomy tube in place. The blood cultures are negative. Sputum samples also sent and the results are still pending for now. Pleural fluid analysis also pending. On today's evaluation of 12/22/2023, I am seeing the patient for a follow-up. The patient is currently on a trach collar with 10 L of oxygen with an FiO2 of 40%. He is calm and comfortable and is not having any significant respiratory distress. The pleural fluid analysis shows no microbial growth for now. Nevertheless, the fluid is an exudate with elevated LDH and protein and low sugar very much consistent with a complicated parapneumonic effusion/. I also repeated the CAT scan of the chest on this patient and this was a noncontrast CAT scan of the chest that was completed yesterday and shows some persistence in the right-sided pleural effusion in the posterior right lung base along with multiple air-fluid levels present. The chest tube is present anteriorly. Noted output from the chest tube has been minimal at this point in time. No evidence of any significant pneumothorax. Similar findings were seen on today's chest x- ray. Labs from today are still pending for now. Patient remains on a combination of Zosyn and vancomycin. I discussed the findings with the patient I also discussed the findings with interventional radiology. The plan is to put the pigtail catheter in the right lower lobe complex fluid collection as noted on the CAT scan of the chest. Meanwhile, the patient continues to receive enteral feeding for nutritional support. He is quite debilitated. On today's evaluation of 12/23/2023, the patient is being seen for a follow-up. Doing well, no specific complaints, on a trach collar with FiO2 of 40% 10 L oxy gen flow. White cell count is at 9.4 with a hemoglobin of 8.9. BUN 11 creatinine of 0.6 and sodium levels at 142. As mentioned yesterday, the pigtail catheter was inserted into the posterior right chest and approximately 900 cc of purulent material was aspirated. Cultures are still pending for now. Repeat chest x-ray was done today and the chest x-ray is showing pigtail catheter in the right lung base. The patient has a loculated right-sided pneumothorax in the lateral aspect of the right lower chest. The pleural-parenchymal opacity in the right lung base is improved. There is some increased density in the medial aspect of the left lung base. The right upper lobe is essentially clear at this point in time. Right-sided chest tube is also in place. There is no evidence of any air leak. No output from the right-sided chest tube. The sputum culture was positive for a combination of Klebsiella and Burhdolderia and the patient is still on a combination of Zosyn and vancomycin. Awaiting cultures from the pleural fluid. Awake and alert and communicating. Continues to receive enteral feeding for additional support. Case was discussed with cardiothoracic surgery. Infectious disease consultation has also been obtained regarding this ongoing empyema. The patient was kept on the same antibiotic coverage. On today's evaluation of 12/24/2023, the patient has no specific complaints. The right-sided chest that was notable to the pigtail catheter has been kept in place. Repeat chest x-ray from today showed essentially stable right-sided hydropneumothorax. The right total chest tube catheter is still in place. There is still some parenchymal pulmonary opacity in the right lung base. Nevertheless, the patient is receiving daily therapy administration and since yesterday, the patient has produced another 400 cc of purulent material through the pigtail catheter. 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 Vancomycin has been discontinued. Noted the sputum and the pleural fluid cultures came back positive for the same microorganism. Infectious disease on the case. The patient remains afebrile. WBC count is at 8.8 with a hemoglobin 8.4 and platelet count of 460. BUN is at 14 with a creatinine of 0.8 and a sodium levels at 141. Awake and alert and communicating. Continues to receive enteral feeding for respiratory support. Terms of his oxygenation currently is on a 40% trach collar. No interval worsening shortness of breath. On today's evaluation of 12/25/2023, I am seeing the patient for a follow-up. Since yesterday, the patient has another additional 500 cc through the chest tube. The patient remains on 40% trach collar. No interval worsening shortness of breath. Respiratory status remained stable. Pigtail catheter is in place. Catheter installation of tPA was done today. Based on today's chest x-ray, the findings are essentially similar with an area of consolidation in the right pos terior lung base with a stable right-sided hydropneumothorax. There is stable pleural-parenchymal opacity in the right lung base. The pigtail catheter is in good location. The patient continues to be on IV meropenem. At the same time, the patient experienced some GI upset. X-ray of the abdomen was done that showed nonspecific findings. Abdomen is nondistended. Tube feeds were placed on hold for yesterday and this will be restarted at a lower rate. On today's evaluation of 12/26/2023, the patient is doing well. Remains on a 40% trach collar. No respiratory distress. No fever or chills. Remains on IV meropenem. Output from the pigtail catheter has been noted and the patient has produced approximately 400 cc of output over the past 24 hours. A follow-up CAT scan of the chest was done without contrast this morning and a CAT scan of the chest showed a significant improvement in the previously described multi air- fluid level and there is improvement in the right-sided hydropneumothorax although there is some residual pneumothorax along the right lateral posterior chest. There is also some perihilar cavitary lesions. Lesions have decreased in size and currently measuring up to 2.7 cm in dimension. Tracheostomy is still in place. The pigtail catheter is in a good location. The right-sided hydropneumothorax is dropped from 17 to 3 cm meter in size. There is emphysema tous changes with paraseptal emphysema in the upper lobes bilaterally.The white cell count is at 9.3 with a hemoglobin of 8 and a platelet count of 450. BUN is at 40 with a creatinine of 0.9 and sodium levels at 142. Patient was reevaluated today on 12/27/2023, patient remains on 40% trach collar, continues to have chest tube in place, remains on antibiotics as per infectious disease, presently on Merrem. Patient is being treated for empyema and hydropneumothorax. Labs including CBC and basic metabolic profile are normal patient seems to be comfortable, I believe infectious disease is planning treatment for at least 2 weeks for his empyema using Merrem. Patient does have a PICC line in place, wondering if this could be done at home but I do not believe the chest tube is ready to be removed yet, continues to drain, and the drainage is still purulent. Continues to have some pneumothorax but no airleak noted Reevaluate today on 12/28/2023, patient remains on 40% trach collar. Continues to have right-sided chest tube/pigtail catheter in place, continues to drain however the drainage is becoming minimal. Last CT of the chest did show evidence of hydropneumothorax, updated thoracic surgery on the case, apparently Dr. Lubin is aware of the case, and he has no plans for decortication will have thoracic surgery evaluate the patient again, but over the phone no plans for decortication. In the meantime the patient is receiving antibiotics, and the plan is to give him 2 full weeks of IV antibiotics. Patient does not seem to be in distress, however I am quite concerned that once we remove the pigtail catheter, the fluid is going to build up again, and the patient may have a bit of a trapped lung. Was reevaluated today on 12/29/2023, patient continues to have pigtail catheter in place, continues to have some purulent secretions out of the pigtail catheter/right pleural space. Surgery is yet to decide on whether the patient would benefit from decortication. Patient seems to have a loculated right-sided pneumothorax and what seems to be a right trapped lung. Patient had multiple lytic instillation in the right pleural space, chest x-ray today showed improved in the loculation/loculated pneumothorax, and he continues to have subcutaneous emphysema with bibasilar infiltrates. WBC count is 9.2 hemoglobin is 8.7 basic metabolic profile is normal bicarb is 36, clinically the patient is feeling better remains on antibiotics as per ID on the case, still on Merrem. Patient was not today on 12/30/2023, patient is doing better, breathing easier, remains on trach collar, he is still draining from his pigtail catheter, had about 180 cc of purulent drainage from the pigtail catheter over the last 24 hours. Chest x-ray continues to show a loculated right-sided pneumothorax, thoracic surgery is not planning any surgical intervention after they reviewed his CT of the chest and his follow-up x-rays of the chest. Patient remains on antibiotics as per infectious disease on the case, he is receiving Merrem, patient has received almost 2 weeks of antibiotics, his white cell count normalized, discussed with surgery, no plans for surgical intervention, however considering the patient continues to have some fairly good amount of drainage, I would recommend keeping the pigtail catheter in place for now. And again the patient is still receiving Merrem as per ID on the caseWBC count is 5.3 hemoglobin 8.3 basic metabolic profile is normal renal profile is normal, in the meantime patient remains on 40% trach collar Reason for on 01/01/2024, patient is basically about the same, however it is nice to see that the patient has no more air leak in the chest tube today, and there is minimal drainage overnight. I believe we are about to consider removing his pigtail catheter on Wednesday, and consider discharging the patient home on Wednesday to follow-up on outpatient basis. Patient normally sees Dr. Whipple for his right midlung nodule and this could be followed on outpatient basis. His WBC count today is 4.5 hemoglobin 8.2 electrolytes are normal renal profile is normal. Patient was evaluated today on 01/02/2024, doing well, continues to have pigtail catheter in place, minimal drainage noted in the chest tube/Pleur-evac, no evidence of air leak, there is a loculated pneumothorax on the chest x-ray which is chronic patient was told today that he will have his pigtail catheter removed tomorrow and possibly discharge the patient home tomorrow. However few hours after I saw the patient I was notified by the nurse that the patient accidentally pulled out his pigtail catheter, and I am recommending a chest x- ray now and a follow-up chest x-ray in a.m. Clinically the patient is doing well, he finished over 2 weeks of antibiotics, patient has been treated with Merrem. And he continues to be followed by infectious disease on the case Objective - Vital Signs Vital signs: Vital Signs Temp 98.0 F 01/02/24 11:34 Pulse 72 01/02/24 11:34 Resp 20 01/02/24 11:34 BP 106/64 01/02/24 11:34 Pulse Ox 96 01/02/24 11:34 FiO2 28 01/02/24 09:59 Intake & Output 01/01/24 01/02/24 01/02/24 18:59 06:59 18:59 Intake Total 10 20 Output Total 1445 1307 1312 Balance -7950 -7501 -1322 Intake: IV 10 20 Invasive Line 3 10 20 Output: Chest Tube Drainage 45 7 12 Chest Tube Right 45 7 12 Posterior Chest Urine 1400 1300 1300 Other: Voiding Method Toilet Toilet Toilet Urinal Urinal Urinal - Exam GENERAL EXAM: 58-year-old white male on 40% trach collar, not in distress HEAD: Normocephalic and atraumatic EYES: Normal reaction of pupils, equal size. NOSE: Clear with pink turbinates. THROAT: No erythema or exudates. NECK: No masses, no JVD. Tracheostomy insertion site clean and dry. CHEST/lungs: Diminished breath sounds at the bases, pigtail catheter is noted and draining purulent and serosanguineous fluid. No air leak is noted today. CVS: S1 and S2 normal with no audible murmur, regular rhythm. No extra heart sounds ABDOMEN: No hepatosplenomegaly, active bowel sounds, no guarding or rigidity. PEG tube site clean and dry. SPINE: No scoliosis or deformity SKIN: No rashes CENTRAL NERVOUS SYSTEM: Alert oriented x 3 EXTREMITIES: No clubbing edema or cyanosis - Labs CBC & Chem 7: 01/01/24 06:15 01/01/24 06:15 Labs: Abnormal Lab Results - Last 24 Hours (Table) 01/01/24 01/02/24 Range/Units 16:21 11:35 POC Glucose (mg/dL) 124 H 118 H (70-110) mg/dL Assessment and Plan Assessment: Impression: Acute empyema with acute right hydropneumothorax requiring drainage via pigtail catheter, cultures positive for burkhoderia cepacia complex Acute hemoptysis, resolved Acute on chronic hypoxic respiratory failure presently on 40% trach collar History of laryngeal cancer status post chemoradiation and tracheostomy History of PEG tube insertion Underlying COPD Hypothyroidism Chronic ongoing tobacco dependence Recommendation: Is planning to keep the pigtail catheter at least until tomorrow to be removed, however the patient accidentally removed it today, and I am recommending a follow-up chest x-ray today and follow-up chest x-ray tomorrow if no change patient could be discharged home and follow-up on outpatient basis with Dr. Whipple Continue antibiotics/Merrem Chest x-ray today was reviewed continues to have a loculated pneumothorax but overall I believe there is improvement, thoracic surgery not planning any surgical intervention Continue IV Merrem Continue oxygen via trach collar Continue nutritional support Prognosis remains very guarded Discharge planning possibly in the next 24 hours Will continue to follow Time with Patient: Less than 30
--- NOTE | 2024-01-02 17:16 | P.PN ---
Subjective Progress Note Date: 01/02/24 Patient is a 58-year-old male with a past medical history of laryngeal cancer status post chemoradiation in July 2023 last tracheostomy and PEG tube placement, COPD, hypothyroidism, history of Graves' disease and currently everyday smoker presents to ER with worsening shortness of breath and hemopty sis. Patient was recently admitted to the hospital from 12/10/2023 to 12/17/2023 and was treated for postoperative pneumonia and COPD. Patient was discharged under hospice care. Patient states that he has been having copious amounts of secretions from the tracheostomy. Denies any fever. No nausea or vomiting. Patient had recent PET scan in September 2023 which showed persistent uptake in the posterior lateral right vocal cord compatible with neoplasm. Patient previously declined biopsy. Chest x-ray on admission showed increasing lucency throughout the right lung concerning for pneumothorax. Small pleural effusion may also be present. CT chest showed interval development of large right pneumothorax with large pneumothorax and small heterogenous complex right pleural effusion. There is consolidation changes around the right pulmonary hilum thought to represent atelectasis in the area of cavitation possibly secondary to prior mass. Retained secretions predominantly within the right main bronchus, right lower and right middle lobe large airways. Correlate for retained secretions. Co nsider bronchoscopy. Chest tube was placed by ER physician. Repeat chest x-ray showed right-sided c hest tube in place with significant decrease in size of right-sided hydro pneumothorax and partial reexpansion. Laboratory data showed WBC 16.9 hemoglobin 11.0 and platelets 475 Sodium 134 potassium 5.1 chloride 105 bicarb is 22 BUN 19 and creatinine 0.41 and blood sugar 64 albumin 2.6 and procalcitonin level is elevated to 0.22 12/21/2023 Patient is seen in follow-up today continues to report significant shortness of breath and pain in multiple areas including the right chest where his chest tube is. Home medications reviewed and resumed as appropriate and patient is continued on Dilaudid and will resume [place] and his fentanyl patch. Follow-up chest x-ray today shows no significant change in pleural parenchymal opacity of the right lung base with slightly improved right apical pneumothorax. CT chest is ordered and pending at this time. Patient is continued on IV antibiotics in the form of Zosyn and vancomycin being added. Patient is afebrile with no reports of chest pain or palpitations. Patient continues on trach collar with a flow rate of 8 and FiO2 is 35%. Tolerating tube feeds thus far and will also add bowel regimen given he is on a number of different narcotics. 12/22/2023 Patient is seen and evaluated in follow-up maintained on trach collar and high flow oxygen with continued right chest tube. There is noted fluid collection on the CT imaging from yesterday and IR has been consulted possible pigtail catheter placement as it appears somewhat loculated. Present right-sided chest tube with minimal output noted per nursing staff. Patient is maintained on antibiotics and will consult infectious disease and appreciate input and recommendations. Cultures all remain pending thus far. Cytology is pending as well. Overall prognosis remains poor and guarded at this time. Patient wishes to remain full code. 12/23/2023 Patient seen and evaluated in follow-up status post pigtail catheter placement and CT surgery has been consulted. Patient to receive alteplase for loculated empyema noted on the right. Patient is continued on breathing inhalational treatments along with high flow oxygen via trach collar. Patient is reporting significant pain and will adjust medications appropriately. Had a lengthy discussion with the patient regarding overall CODE STATUS and patient wishes to remain full code does not currently want hospice. Discussed with daughter over the phone after discussing with patient about overall prognosis and treatment plan moving forward. Daughter feels he would benefit from rehab as all of his comorbidities have become more difficult to handle and she feels he is not safe to return home and manage his care himself. Case management is following and working with the patient. Will have PT/OT therapy evaluate the patient. Inf ectious disease following and patient is maintained on broad spec. 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 Patient may likely require IV antibiotics on discharge. Patient will require a PICC line and no staff available until Wednesday to have a PICC line placed. Patient is currently afebrile and denies chest pain or palpitations. Patient reports continued shortness of breath off with secretions. Patient tolerating tube feedings thus far and will continue on bowel regimen as well as patient is receiving IV narcotics. 12/24/2023 Patient is seen and evaluated in follow-up with multiple medical consultations following. Patient remains on trach collar 30% and reports no significant improvements in dyspnea although reports about the same. Patient continues with pigtail catheter currently receiving alteplase daily and chest x-rays with CT surgery following. Patient continues to have purulent drainage with cultures mentioned above with infectious disease following. Patient is continued on meropenem and vancomycin is discontinued. Patient continues on tube feeds and reports tolerating although feels for and reports not having a bowel movement over the last 5 days. Will obtain abdominal x-ray and continue bowel regimen. Recommend Dulcolax suppository and this was discussed with nursing at bedside. Patient is agreeable. Patient is continued on a number of pain medications which would make me concerned for constipation. Minimal bowel sounds noted. Patient denies abdominal pain but does report feeling full. Per nursing staff as well patient's insurance information and paperwork has been faxed with daughter at the bedside regarding continuation of [employer] insurance through his employer. Case management is following. Patient may require IV antibiotics on discharge and continued nursing care at an [facility]. Encouraged to increase activity as tolerated. 12/25/2023 Patient is sitting on side of bed. Awake alert and oriented 3. Unable to communicate due to trach collar with 40% FiO2. Patient had additional 5 cc through chest tube. No complaints of chest pain. Breathing status improving. Chest x-ray today showed right basilar pigtail pleural catheter terminates over the medial lung base. Small amount of gas in the chest wall adjacent to the tube. Similar amount of air within the right-sided pleural collection compatible with hydropneumothorax and empyema. Stable pleural-parenchymal o pacity in the right lung base and increased density in the medial left lung base. Laboratory data showed reviewed. Pulmonary is on board. 12/26/2023 Patient is sitting on side of bed. Awake alert and oriented x 3. Trach collar with 40% FiO2. No complaints of chest pain or worsening shortness of breath. Patient is having 400 cc fluid output from the pigtail catheter. Patient is afebrile otherwise. No nausea vomiting. CT chest was done today showed complex pleural collection seen previously is much improved with previously noted multiple air-fluid levels essentially resolving hydropneumothorax persisting. Persistent right perihilar cavitary lesion. Patient appears smaller in size and currently measures 2.7 cm in greatest dimension versus 4.3 cm. Laboratory data showed WBC 9.3 hemoglobin 8.0 and platelets 450 and MCV 103.9, sodium 142 potassium 3.6 chloride 106 bicarb is 33 BUN 14 and creatinine 0.599 and blood sugar is 78 and calcium 8.0. Pulmonary is on board. Patient on antibiotics meropenem. 12/27/2023 Patient is seen and evaluated in follow-up with multiple medical consultations following. Patient is continued on IV antibiotics with infectious disease following currently on meropenem and discussing possibly requiring IV antibiotic therapy on discharge. Patient does have a PICC line. Patient continues with right pigtail catheter currently receiving alteplase with CT surgery following as there continues to be purulent drainage noted. Discussing possible washout of the right lung. Patient continues on pain management as well as bowel regimen and will continue. Wean FiO2 as tolerated. Patient currently on 40% FiO2 trach collar. Patient is afebrile with no reports of worsening shortness of breath. Patient denying chest pain or palpitations. Patient is tolerating tube feedings and recommend to continue with head of the bed elevated 30 to 45 degrees at all times and monitoring for residuals. 12/28/2023 Patient is seen and evaluated in follow-up continues to be receiving alteplase via pigtail catheter on the right. Per nursing staff there has been minimal output noted and patient remains on IV antibiotics with infectious disease following. Plan is for 2 weeks of antibiotics outpatient. Pulmonary following as well maintained on breathing inhalational treatments and discussing with CT surgery about possible decortication as there is concern once the catheter is removed, it will fill up again and recur. Follow-up on chest x-ray in the a.m. Patient is currently afebrile with no reported chest pain or worsening shortness of breath. Patient is tolerating tube feeds and reports had a bowel movement a few days ago. Recommend to continue with bowel regimen daily as patient is receiving narcotic medication. Patient encouraged to increase activity as tolerated. Will have physical therapy evaluate the patient. 12/29/2023 Patient is seen in follow-up this morning continues with right pigtail catheter and per patient overnight there was copious amounts of drainage noted and patient has been receiving alteplase administrations. Pulmonary following discussing with CT surgery regarding possible decortication and awaiting reevaluation by CT surgery. Patient maintained on antibiotics with infectious disease following and will continue. Patient is concerned of going home continued infection and becoming more severe and requiring hospitalization again. Patient lives alone and unsure if he will be able to handle all this. Recommend ECF on discharge. Patient is afebrile and denies chest pain other than at the chest tube site with no palpitations. Patient denying worsening shortness of breath. 12/30/2023 Patient is seen and evaluated today with pulmonary following closely. Patient continues on trach collar with an FiO2 of 40% and reports breathing is improved. Patient continues on antibiotics in the form of meropenem and will need 2 weeks of antibiotics on discharge. Patient does have a PICC line as well as continued pigtail catheter. Per pulmonary no plans for surgical intervention at this time and recommend continuing with monitoring drainage. Will follow-up with repeat chest x-ray. Patient is afebrile and white count has normalized and CT surgery with no plans of surgical intervention. Prognosis is guarded at this time. Recommend PT/OT therapy evaluation. Dietary following as patient is maintained on tube feeds and tolerating. 12/31/2023 Patient seen in follow-up this morning with no plans of surgical intervention at this time recommending continuing with pigtail catheter and monitoring drainage. Patient is continued on IV antibiotics in the form of meropenem with infectious disease following and will continue. Patient does have a PICC line and will continue outpatient IV antibiotics. Recommend repeat chest x-rays to monitor improvement in empyema. Patient is afebrile with no reports of worsening shortness of breath. Patient denies chest pain. Patient reports feeling slightly constipated and has been on a number of medications for pain, will make bowel regimen scheduled as well as as needed. Encouraged to increase activity as tolerated. 01/01/2024 Patient is seen and evaluated this morning with no acute overnight issues. Patient is having some improvement of the right empyema and continues with right pigtail catheter with some improvements in amount of drainage. Possibly planning for pigtail catheter removal on Wednesday and to discuss further with case management regarding discharge planning and antibiotics. Patient is afebrile with no reports of chest pain or worsening shortness of breath. Patient has been tolerating tube feeding and is continued on bowel regimen. Will discuss further with dietary regarding goal rate and overall amount on tube feeding. 01/02/2024 Patient is seen in follow-up today continues to be on trach collar with an FiO2 of 28%. Oxygen titrated down to 5 L and tolerating well. patient continues with right pigtail catheter with an air leak and some minimal drainage around the tubing with pulmonary following discussing possible removal of the tube tomorrow and awaiting interventional radiology. Patient apparently removed his own pigtail catheter and repeat chest x-ray ordered and pending. Will continue antibiotics with pulmonary following and discussing possible discharge planning in the next 24 hours. Patient is afebrile and reports his breathing is improved and has been weaning FiO2. Will follow-up on repeat chest x-ray tomorrow as well and discuss further with pulmonary along with infectious disease regarding discharge planning. Review of systems: Constitutional: No reports of fatigue, fever, or chills Cardiovascular: No reports of chest pain or palpitations Respiratory: reports of continued shortness of breath with no worsening, although stable GI: No reports of nausea, vomiting, or diarrhea, reports not having a bowel movement in a couple of days, reports passing gas : No reports of dysuria or retention Neurovascular: reports of generalized weakness All medications have been reviewed PHYSICAL EXAMINATION: Patient is sitting up in the bed, awake alert and oriented. Thin built, emaciated, ill-appearing, elderly appearing, has tracheostomy currently maintained on oxygen with a trach collar 28%. HEENT: Normocephalic. Neck is supple. Pupils reactive. Nostrils clear. Oral cavity is moist. Neck reveals no JVD, carotid bruits, or thyromegaly. CHEST EXAMINATION: Trachea is central. Symmetrical expansion. Bibasilar coarse sounds and crackles. Nonlabored breathing.. Right pigtail catheter noted with minimal drainage CARDIAC: S1, S2 muffled ABDOMEN: Soft. Thin, scaphoid bowel sounds hypoactive. No organomegaly. No abdominal bruits. PEG tube noted Extremities: reveal no edema. No clubbing or cyanosis Neurologically awake, alert, oriented x3. Able to move all extremities. No gross focal neurological deficits.. Diffusely weak Skin: No rash or skin lesions. Psychiatric: Cooperative. Non-suicidal Musculoskeletal: No joint swelling or deformity. Assessment: Acute large right-sided hydropneumothorax status post chest tube placement with decrease in size of the right-sided hydropneumothorax and partial reexpansion. Acute on chronic hypoxemic respiratory failure secondary to above, on trach collar FiO2 is 28% and O2 is 5 L Right-sided empyema, status post pigtail catheter placement, status post daily alteplase administration through chest tube, patient apparently removed his pigtail catheter on accident today 01/02/2024 and will follow-up with repeat chest x-ray as well as a.m. chest x-ray and discuss further with pulmonary regarding possible discharge planning on Wednesday Acute hemoptysis on admission, resolved History of laryngeal cancer status post chemoradiation in July 2023 and tracheostomy and PEG tube placement. Patient had PET scan done in September 2023 showed persistent uptake in the posterior lateral right cord level compatible with neoplasm. Patient declined biopsy on previous admission recently Recent admission for from 11/19/2023 to 12/17/2023 postobstructive pneumonia and also CT evidence of lobular heterogenous mass and necrotic components in the right middle lobe. Status post bronchoscopy and biopsy. BAL cultures negative and biopsies nondiagnostic for malignancy. Hypothyroidism History of Graves' disease COPD Ongoing nicotine addiction DVT prophylaxis with heparin subcu GI prophylaxis Full code Plan: Patient is on humidified oxygen via trach collar with an FiO2 of 28 % and oxygen is 5 L. Weaning as tolerated. Patient has been adjusting oxygen saturations as needed Patient had been receiving daily alteplase for continued empyema. Patient continues with drainage from the right pigtail catheter with no plans of surgical intervention per CT surgery. Continue with pigtail catheter for now and pulmonary discussing removal with IR in 24 hours. Later today per nursing staff patient accidentally removed his own pigtail catheter and repeat chest x- ray ordered and pending. A.m. chest x-ray ordered as well Patient reports to feeling improved and will be discussing discharge planning to ECF for IV antibiotic therapy versus home with home care. Patient will require 2 weeks of antibiotics on discharge. Patient does have a PICC line. Continue with breathing treatments Continue with pain management and bowel regimen. Patient with significant weakness as well as significant comorbidities will consult PT/OT and discuss further with case management regarding discharge planning once patient is stabilized. Family feels he is unable to care for himself and would benefit from ECF. Patient will require IV antibiotics on discharge given this empyema and extensive pneumonia. Will discuss with case management and family regarding discharge planning and possible discharge in the 24 to 48 hours Due to multiple complex medical issues, overall prognosis is poor and guarded The impression and plan of care has been dictated by Virginie Urbina, Nurse Practitioner as directed. Dr. Andreas MD I have performed a history and examination and MDM of this patient, discussed the same with the dictator, and agree with the dictator's assessment and plan as written ,documented as a scribe. Based on total visit time, I have performed more than 50% of the visit. Objective - Vital Signs Vital signs: Vital Signs Temp 97.6 F 01/02/24 07:49 Pulse 83 01/02/24 07:49 Resp 18 01/02/24 07:49 BP 90/50 01/02/24 07:49 Pulse Ox 95 01/02/24 07:49 FiO2 28 01/02/24 09:59 Intake & Output 01/01/24 01/02/24 01/02/24 18:59 06:59 18:59 Intake Total 10 10 Output Total 1445 1307 0 Balance -1435 -1307 10 Intake: IV 10 10 Invasive Line 3 10 10 Output: Chest Tube Drainage 45 7 0 Chest Tube Right 45 7 0 Posterior Chest Urine 1400 1300 Other: Voiding Method Toilet Toilet Toilet Urinal Urinal Urinal - Labs CBC & Chem 7: 01/01/24 06:15 01/01/24 06:15 Labs: Abnormal Lab Results - Last 24 Hours (Table) 01/01/24 01/01/24 Range/Units 11:19 16:21 POC Glucose (mg/dL) 115 H 124 H (70-110) mg/dL
[2024-01-02 17:56] LABS: Glucose,Whole Blood 135 mg/dL (70-110)
--- NOTE | 2024-01-02 19:19 | XR ---
EXAM: XR chest 1V portable CLINICAL INDICATION:Male, 58 years old with history of removal of chest tube; [facility] COMPARISON: 01/01/2024, 12/31/2023 TECHNIQUE: Chest single view. FINDINGS: Tracheostomy cannula unchanged. Pigtail pleural catheter at the right base has been removed. Heart up per normal size. Prominent subcutaneous emphysema within the right chest wall appears stable to slightly decreased. Lo culated pleural gas collection at the right base measures 12.3 x 3 cm, previously 10.4 x 2.3 cm. Patc hy opacities at the right lower lung remain unchanged. No new or worsening infiltrate. No left pleura l effusion or left pneumothorax. Osseous structures appear grossly stable. IMPRESSION: * Interval removal of pigtail pleural catheter at the right base, with increased size of loculated p leural air collection. * Adjacent patchy right basilar opacity appears similar to previous. * Subcutaneous emphysema along the right chest appears stable to minimally reduced.
[2024-01-03 00:20] LABS: Glucose,Whole Blood 100 mg/dL (70-110)
[2024-01-03 06:14] LABS: Glucose,Whole Blood 91 mg/dL (70-110)
--- NOTE | 2024-01-03 07:50 | XR ---
EXAMINATION TYPE: XR chest 1V portable DATE OF EXAM: 01/03/2024 HISTORY: Shortness of breath. COMPARISON: 01/02/2024 TECHNIQUE: Single view of the chest is submitted. FINDINGS: Right lateral basilar loculated pneumothorax is redemonstrated unchanged in size. Pleural parenchymal opacity right lung base is also stable. Subcutaneous emphysema along the right chest wall. The left lung is clear. Tracheostomy tube is in place. The heart is stable. Hilar and mediastinal structures are within normal limits. Degenerative changes are seen of the dorsal spine. IMPRESSION: 1. Stable chest.
[2024-01-03 12:19] LABS: Glucose,Whole Blood 112 mg/dL (70-110)
--- NOTE | 2024-01-03 13:44 | P.PN ---
Subjective Progress Note Date: 01/03/24 Principal diagnosis: Shortness of breath. Patient was reevaluated today on 12/27/2023, patient remains on 40% trach collar, continues to have chest tube in place, remains on antibiotics as per infectious disease, presently on Merrem. Patient is being treated for empyema and hydr opneumothorax. Labs including CBC and basic metabolic profile are normal patient seems to be comfortable, I believe infectious disease is planning treatment for at least 2 weeks for his empyema using Merrem. Patient does have a PICC line in place, wondering if this could be done at home but I do not believe the chest tube is ready to be removed yet, continues to drain, and the drainage is still purulent. Continues to have some pneumothorax but no airleak noted Reevaluate today on 12/28/2023, patient remains on 40% trach collar. Continues to have right-sided chest tube/pigtail catheter in place, continues to drain however the drainage is becoming minimal. Last CT of the chest did show ev idence of hydropneumothorax, updated thoracic surgery on the case, apparently Dr. Lubin is aware of the case, and he has no plans for decortication will have thoracic surgery evaluate the patient again, but over the phone no plans for decortication. In the meantime the patient is receiving antibiotics, and the plan is to give him 2 full weeks of IV antibiotics. Patient does not seem to be in distress, however I am quite concerned that once we remove the pigtail catheter, the fluid is going to build up again, and the patient may have a bit of a trapped lung. Was reevaluated today on 12/29/2023, patient continues to have pigtail catheter in place, continues to have some purulent secretions out of the pigtail catheter/right pleural space. Surgery is yet to decide on whether the patient would benefit from decortication. Patient seems to have a loculated right-sided pneumothorax and what seems to be a right trapped lung. Patient had multiple lytic instillation in the right pleural space, chest x-ray today showed improved in the loculation/loculated pneumothorax, and he continues to have subcutaneous emphysema with bibasilar infiltrates. WBC count is 9.2 hemoglobin is 8.7 basic metabolic profile is normal bicarb is 36, clinically the patient is feeling better remains on antibiotics as per ID on the case, still on Merrem. Patient was not today on 12/30/2023, patient is doing better, breathing easier, remains on trach collar, he is still draining from his pigtail catheter, had about 180 cc of purulent drainage from the pigtail catheter over the last 24 hours. Chest x-ray continues to show a loculated right-sided pneumothorax, thoracic surgery is not planning any surgical intervention after they reviewed his CT of the chest and his follow-up x-rays of the chest. Patient remains on antibiotics as per infectious disease on the case, he is receiving Merrem, patient has received almost 2 weeks of antibiotics, his white cell count normalized, discussed with surgery, no plans for surgical intervention, however considering the patient continues to have some fairly good amount of drainage, I would recommend keeping the pigtail catheter in place for now. And again the ruben zavala is still receiving Merrem as per ID on the caseWBC count is 5.3 hemoglobin 8.3 basic metabolic profile is normal renal profile is normal, in the meantime patient remains on 40% trach collar Reason for on 01/01/2024, patient is basically about the same, however it is nice to see that the patient has no more air leak in the chest tube today, and there is minimal drainage overnight. I believe we are about to consider removing his pigtail catheter on Wednesday, and consider discharging the patient home on Wednesday to follow-up on outpatient basis. Patient normally sees Dr. Whipple for his right midlung nodule and this could be followed on outpatient basis. His WBC count today is 4.5 hemoglobin 8.2 electrolytes are normal renal profile is normal. Patient was evaluated today on 01/02/2024, doing well, continues to have pigtail catheter in place, minimal drainage noted in the chest tube/Pleur-evac, no evidence of air leak, there is a loculated pneumothorax on the chest x-ray which is chronic patient was told today that he will have his pigtail catheter removed tomorrow and possibly discharge the patient home tomorrow. However few hours after I saw the patient I was notified by the nurse that the patient accidentally pulled out his pigtail catheter, and I am recommending a chest x- ray now and a follow-up chest x-ray in a.m. Clinically the patient is doing well, he finished over 2 weeks of antibiotics, patient has been treated with Merrem. And he continues to be followed by infectious disease on the case Progress note dated January 03, 2024. The patient is seen today in room 362. The patient is on trach collar 28%. He is receiving nutrition with TwoCal HN at 100 cc an hour. The patient's pigtail catheter fell out yesterday. Clinically, he looks very stable. He has no specific complaints today. No new labs today other than a glucose of 112. 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 His chest x-ray today is interpreted as being stable. There is some subcutaneous emphysema along the right chest wall. The left lung is clear. Objective - Vital Signs Vital signs: Vital Signs Temp 97.5 F L 01/03/24 09:15 Pulse 74 01/03/24 11:51 Resp 20 01/03/24 11:51 BP 95/60 01/03/24 11:51 Pulse Ox 93 L 01/03/24 09:15 FiO2 28 01/03/24 09:23 Intake & Output 01/02/24 01/03/24 01/03/24 18:59 06:59 18:59 Intake Total 20 20 10 Output Total 1787 1750 800 Balance -1767 -1730 -790 Intake: IV 20 20 10 Invasive Line 3 20 20 10 Output: Chest Tube Drainage 12 Chest Tube Right 12 Posterior Chest Urine 1775 1750 800 Other: Voiding Method Toilet Toilet Toilet Urinal Urinal Urinal # Voids 800 # Bowel Movements 0 - Exam No acute distress, oriented 3. HEENT examination is grossly unremarkable. Mucous membranes are moist. No oral lesions. Neck supple. Full range of motion. No adenopathy thyromegaly or neck vein distention. Patient has a midline tracheostomy tube. Cardiovascular examination reveals regular rhythm rate. S1-S2 normal. No S3 or S4. No discernible murmur noted. Lungs reveal mild scattered rhonchi. No wheezes or crackles. Pigtail catheter is no longer present. Saturations are excellent. Abdomen soft bowel sounds are heard. No masses or tenderness. Extremities are intact. No cyanosis clubbing or edema. Skin is without rash or lesion. Neurologic examination is brief but nonfocal. - Labs CBC & Chem 7: 01/01/24 06:15 01/01/24 06:15 Labs: Abnormal Lab Results - Last 24 Hours (Table) 01/02/24 01/03/24 Range/Units 17:55 12:17 POC Glucose (mg/dL) 135 H 112 H (70-110) mg/dL Assessment and Plan Assessment: Acute empyema with acute right hydropneumothorax, requiring drainage, via pigtail catheter. Acute hemoptysis, resolved. Acute on chronic hypoxemic respiratory failure. History of laryngeal cancer, status post chemoradiation, and tracheostomy. History of PEG tube insertion. History of COPD. History of hypothyroidism. Chronic and ongoing tobacco dependence. Plan: Plan dated January 03, 2024. Yesterday, the patient's pigtail catheter fell out. Clinically, the patient appears to be doing relatively well. The patient continues on antibiotics in t he form of meropenem. He also continues on his trach collar at 28%. He is not receiving any IV fluids. He is getting tube feedings, with TwoCal HN at 100 cc an hour. Labs, x-rays, and medications are reviewed. The patient is overall prognosis remains guarded. We will continue to follow make recommendations were appropriate. Time with Patient: Less than 30
[2024-01-03 18:18] LABS: Glucose,Whole Blood 110 mg/dL (70-110)
--- NOTE | 2024-01-03 20:06 | P.PN ---
Subjective Progress Note Date: 01/03/24 Patient is a 58-year-old male with a past medical history of laryngeal cancer status post chemoradiation in July 2023 last tracheostomy and PEG tube placement, COPD, hypothyroidism, history of Graves' disease and currently everyday smoker presents to ER with worsening shortness of breath and hemopty sis. Patient was recently admitted to the hospital from 12/10/2023 to 12/17/2023 and was treated for postoperative pneumonia and COPD. Patient was discharged under hospice care. Patient states that he has been having copious amounts of secretions from the tracheostomy. Denies any fever. No nausea or vomiting. Patient had recent PET scan in September 2023 which showed persistent uptake in the posterior lateral right vocal cord compatible with neoplasm. Patient previously declined biopsy. Chest x-ray on admission showed increasing lucency throughout the right lung concerning for pneumothorax. Small pleural effusion may also be present. CT chest showed interval development of large right pneumothorax with large pneumothorax and small heterogenous complex right pleural effusion. There is consolidation changes around the right pulmonary hilum thought to represent atelectasis in the area of cavitation possibly secondary to prior mass. Retained secretions predominantly within the right main bronchus, right lower and right middle lobe large airways. Correlate for retained secretions. Co nsider bronchoscopy. Chest tube was placed by ER physician. Repeat chest x-ray showed right-sided c hest tube in place with significant decrease in size of right-sided hydro pneumothorax and partial reexpansion. Laboratory data showed WBC 16.9 hemoglobin 11.0 and platelets 475 Sodium 134 potassium 5.1 chloride 105 bicarb is 22 BUN 19 and creatinine 0.41 and blood sugar 64 albumin 2.6 and procalcitonin level is elevated to 0.22 12/21/2023 Patient is seen in follow-up today continues to report significant shortness of breath and pain in multiple areas including the right chest where his chest tube is. Home medications reviewed and resumed as appropriate and patient is continued on Dilaudid and will resume [place] and his fentanyl patch. Follow-up chest x-ray today shows no significant change in pleural parenchymal opacity of the right lung base with slightly improved right apical pneumothorax. CT chest is ordered and pending at this time. Patient is continued on IV antibiotics in the form of Zosyn and vancomycin being added. Patient is afebrile with no reports of chest pain or palpitations. Patient continues on trach collar with a flow rate of 8 and FiO2 is 35%. Tolerating tube feeds thus far and will also add bowel regimen given he is on a number of different narcotics. 12/22/2023 Patient is seen and evaluated in follow-up maintained on trach collar and high flow oxygen with continued right chest tube. There is noted fluid collection on the CT imaging from yesterday and IR has been consulted possible pigtail catheter placement as it appears somewhat loculated. Present right-sided chest tube with minimal output noted per nursing staff. Patient is maintained on antibiotics and will consult infectious disease and appreciate input and recommendations. Cultures all remain pending thus far. Cytology is pending as well. Overall prognosis remains poor and guarded at this time. Patient wishes to remain full code. 12/23/2023 Patient seen and evaluated in follow-up status post pigtail catheter placement and CT surgery has been consulted. Patient to receive alteplase for loculated empyema noted on the right. Patient is continued on breathing inhalational treatments along with high flow oxygen via trach collar. Patient is reporting significant pain and will adjust medications appropriately. Had a lengthy discussion with the patient regarding overall CODE STATUS and patient wishes to remain full code does not currently want hospice. Discussed with daughter over the phone after discussing with patient about overall prognosis and treatment plan moving forward. Daughter feels he would benefit from rehab as all of his comorbidities have become more difficult to handle and she feels he is not safe to return home and manage his care himself. Case management is following and working with the patient. Will have PT/OT therapy evaluate the patient. Inf ectious disease following and patient is maintained on broad spec. 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 Patient may likely require IV antibiotics on discharge. Patient will require a PICC line and no staff available until Wednesday to have a PICC line placed. Patient is currently afebrile and denies chest pain or palpitations. Patient reports continued shortness of breath off with secretions. Patient tolerating tube feedings thus far and will continue on bowel regimen as well as patient is receiving IV narcotics. 12/24/2023 Patient is seen and evaluated in follow-up with multiple medical consultations following. Patient remains on trach collar 30% and reports no significant improvements in dyspnea although reports about the same. Patient continues with pigtail catheter currently receiving alteplase daily and chest x-rays with CT surgery following. Patient continues to have purulent drainage with cultures mentioned above with infectious disease following. Patient is continued on meropenem and vancomycin is discontinued. Patient continues on tube feeds and reports tolerating although feels for and reports not having a bowel movement over the last 5 days. Will obtain abdominal x-ray and continue bowel regimen. Recommend Dulcolax suppository and this was discussed with nursing at bedside. Patient is agreeable. Patient is continued on a number of pain medications which would make me concerned for constipation. Minimal bowel sounds noted. Patient denies abdominal pain but does report feeling full. Per nursing staff as well patient's insurance information and paperwork has been faxed with daughter at the bedside regarding continuation of [employer] insurance through his employer. Case management is following. Patient may require IV antibiotics on discharge and continued nursing care at an [facility]. Encouraged to increase activity as tolerated. 12/25/2023 Patient is sitting on side of bed. Awake alert and oriented 3. Unable to communicate due to trach collar with 40% FiO2. Patient had additional 5 cc through chest tube. No complaints of chest pain. Breathing status improving. Chest x-ray today showed right basilar pigtail pleural catheter terminates over the medial lung base. Small amount of gas in the chest wall adjacent to the tube. Similar amount of air within the right-sided pleural collection compatible with hydropneumothorax and empyema. Stable pleural-parenchymal o pacity in the right lung base and increased density in the medial left lung base. Laboratory data showed reviewed. Pulmonary is on board. 12/26/2023 Patient is sitting on side of bed. Awake alert and oriented x 3. Trach collar with 40% FiO2. No complaints of chest pain or worsening shortness of breath. Patient is having 400 cc fluid output from the pigtail catheter. Patient is afebrile otherwise. No nausea vomiting. CT chest was done today showed complex pleural collection seen previously is much improved with previously noted multiple air-fluid levels essentially resolving hydropneumothorax persisting. Persistent right perihilar cavitary lesion. Patient appears smaller in size and currently measures 2.7 cm in greatest dimension versus 4.3 cm. Laboratory data showed WBC 9.3 hemoglobin 8.0 and platelets 450 and MCV 103.9, sodium 142 potassium 3.6 chloride 106 bicarb is 33 BUN 14 and creatinine 0.599 and blood sugar is 78 and calcium 8.0. Pulmonary is on board. Patient on antibiotics meropenem. 12/27/2023 Patient is seen and evaluated in follow-up with multiple medical consultations following. Patient is continued on IV antibiotics with infectious disease following currently on meropenem and discussing possibly requiring IV antibiotic therapy on discharge. Patient does have a PICC line. Patient continues with right pigtail catheter currently receiving alteplase with CT surgery following as there continues to be purulent drainage noted. Discussing possible washout of the right lung. Patient continues on pain management as well as bowel regimen and will continue. Wean FiO2 as tolerated. Patient currently on 40% FiO2 trach collar. Patient is afebrile with no reports of worsening shortness of breath. Patient denying chest pain or palpitations. Patient is tolerating tube feedings and recommend to continue with head of the bed elevated 30 to 45 degrees at all times and monitoring for residuals. 12/28/2023 Patient is seen and evaluated in follow-up continues to be receiving alteplase via pigtail catheter on the right. Per nursing staff there has been minimal output noted and patient remains on IV antibiotics with infectious disease following. Plan is for 2 weeks of antibiotics outpatient. Pulmonary following as well maintained on breathing inhalational treatments and discussing with CT surgery about possible decortication as there is concern once the catheter is removed, it will fill up again and recur. Follow-up on chest x-ray in the a.m. Patient is currently afebrile with no reported chest pain or worsening shortness of breath. Patient is tolerating tube feeds and reports had a bowel movement a few days ago. Recommend to continue with bowel regimen daily as patient is receiving narcotic medication. Patient encouraged to increase activity as tolerated. Will have physical therapy evaluate the patient. 12/29/2023 Patient is seen in follow-up this morning continues with right pigtail catheter and per patient overnight there was copious amounts of drainage noted and patient has been receiving alteplase administrations. Pulmonary following discussing with CT surgery regarding possible decortication and awaiting reevaluation by CT surgery. Patient maintained on antibiotics with infectious disease following and will continue. Patient is concerned of going home continued infection and becoming more severe and requiring hospitalization again. Patient lives alone and unsure if he will be able to handle all this. Recommend ECF on discharge. Patient is afebrile and denies chest pain other than at the chest tube site with no palpitations. Patient denying worsening shortness of breath. 12/30/2023 Patient is seen and evaluated today with pulmonary following closely. Patient continues on trach collar with an FiO2 of 40% and reports breathing is improved. Patient continues on antibiotics in the form of meropenem and will need 2 weeks of antibiotics on discharge. Patient does have a PICC line as well as continued pigtail catheter. Per pulmonary no plans for surgical intervention at this time and recommend continuing with monitoring drainage. Will follow-up with repeat chest x-ray. Patient is afebrile and white count has normalized and CT surgery with no plans of surgical intervention. Prognosis is guarded at this time. Recommend PT/OT therapy evaluation. Dietary following as patient is maintained on tube feeds and tolerating. 12/31/2023 Patient seen in follow-up this morning with no plans of surgical intervention at this time recommending continuing with pigtail catheter and monitoring drainage. Patient is continued on IV antibiotics in the form of meropenem with infectious disease following and will continue. Patient does have a PICC line and will continue outpatient IV antibiotics. Recommend repeat chest x-rays to monitor improvement in empyema. Patient is afebrile with no reports of worsening shortness of breath. Patient denies chest pain. Patient reports feeling slightly constipated and has been on a number of medications for pain, will make bowel regimen scheduled as well as as needed. Encouraged to increase activity as tolerated. 01/01/2024 Patient is seen and evaluated this morning with no acute overnight issues. Patient is having some improvement of the right empyema and continues with right pigtail catheter with some improvements in amount of drainage. Possibly planning for pigtail catheter removal on Wednesday and to discuss further with case management regarding discharge planning and antibiotics. Patient is afebrile with no reports of chest pain or worsening shortness of breath. Patient has been tolerating tube feeding and is continued on bowel regimen. Will discuss further with dietary regarding goal rate and overall amount on tube feeding. 01/02/2024 Patient is seen in follow-up today continues to be on trach collar with an FiO2 of 28%. Oxygen titrated down to 5 L and tolerating well. patient continues with right pigtail catheter with an air leak and some minimal drainage around the tubing with pulmonary following discussing possible removal of the tube tomorrow and awaiting interventional radiology. Patient apparently removed his own pigtail catheter and repeat chest x-ray ordered and pending. Will continue antibiotics with pulmonary following and discussing possible discharge planning in the next 24 hours. Patient is afebrile and reports his breathing is improved and has been weaning FiO2. Will follow-up on repeat chest x-ray tomorrow as well and discuss further with pulmonary along with infectious disease regarding discharge planning. 01/03/2024 Patient is seen in follow-up this morning pigtail catheter has been removed and chest is stable with pulmonary following. Plan is for patient to go to [facility] which will require insurance authorization for continued IV antibiotic therapy. Patient currently maintained on trach collar with an FiO2 of 28% with an 02 on 5 L. Patient is receiving as needed treatments and also maintained on Merrem. Patient does have a PICC line with infectious disease following. Case managemen t following and has submitted for insurance authorization. Review of systems: Constitutional: No reports of fatigue, fever, or chills Cardiovascular: No reports of chest pain or palpitations Respiratory: reports of continued shortness of breath with no worsening, although stable GI: No reports of nausea, vomiting, or diarrhea, reports not having a bowel movement in a couple of days, reports passing gas : No reports of dysuria or retention Neurovascular: reports of generalized weakness All medications have been reviewed PHYSICAL EXAMINATION: Patient is sitting up in the bed, awake alert and oriented. Thin built, emaciated, ill-appearing, elderly appearing, has tracheostomy currently maintained on oxygen with a trach collar 28%. HEENT: Normocephalic. Neck is supple. Pupils reactive. Nostrils clear. Oral cavity is moist. Neck reveals no JVD, carotid bruits, or thyromegaly. CHEST EXAMINATION: Trachea is central. Symmetrical expansion. Bibasilar coarse sounds and crackles. Nonlabored breathing.. CARDIAC: S1, S2 muffled ABDOMEN: Soft. Thin, scaphoid bowel sounds hypoactive. No organomegaly. No abdominal bruits. PEG tube noted Extremities: reveal no edema. No clubbing or cyanosis Neurologically awake, alert, oriented x3. Able to move all extremities. No gross focal neurological deficits.. Diffusely weak Skin: No rash or skin lesions. Psychiatric: Cooperative. Non-suicidal Musculoskeletal: No joint swelling or deformity. Assessment: Acute large right-sided hydropneumothorax status post chest tube placement with decrease in size of the right-sided hydropneumothorax and partial reexpansion. Acute on chronic hypoxemic respiratory failure secondary to above, on trach collar FiO2 is 28% and O2 is 5 L Right-sided empyema, status post pigtail catheter placement, status post daily alteplase administration through chest tube, patient apparently removed his pigtail catheter on accident yesterday 01/02/2024 and repeat chest x-ray is stable. Acute hemoptysis on admission, resolved History of laryngeal cancer status post chemoradiation in July 2023 and tracheostomy and PEG tube placement. Patient had PET scan done in September 2023 showed persistent uptake in the posterior lateral right cord level compatible with neoplasm. Patient declined biopsy on previous admission recently Recent admission for from 11/19/2023 to 12/17/2023 postobstructive pneumonia and also CT evidence of lobular heterogenous mass and necrotic components in the right middle lobe. Status post bronchoscopy and biopsy. BAL cultures negative and biopsies nondiagnostic for malignancy. Hypothyroidism History of Graves' disease COPD Ongoing nicotine addiction DVT prophylaxis with heparin subcu GI prophylaxis Full code Plan: Patient is on humidified oxygen via trach collar with an FiO2 of 28 % and oxygen is 5 L. Weaning as tolerated. Patient has been adjusting oxygen saturations as needed Patient is status post trach being pigtail catheter with accidental removal by patient yesterday. Patient's chest x-ray is stable and continues with pleural effusion on the right. Patient is planning on 2 weeks of antibiotics with a PICC line of meropenem with infectious disease following. Case management following has submitted insurance authorization as patient would like to go to [facility]. Awaiting updated PT/OT therapy evaluation Continue with breathing inhalational treatments as needed Continue with PEG tube feedings and will discuss with dietary regarding adjusting volume. Due to multiple complex medical issues, overall prognosis is extremely poor and guarded. Patient will need outpatient follow-up with oncology in the outpatient setting once discharged from [facility]. Possible discharge in the next 24 to 48 hours. The impression and plan of care has been dictated by Virginie Urbina, Nurse Practitioner as directed. Dr. Adriel MD I have performed a history and examination and MDM of this patient, discussed the same with the dictator, and agree with the dictator's assessment and plan as written ,documented as a scribe. Based on total visit time, I have performed more than 50% of the visit. Objective - Vital Signs Vital signs: Vital Signs Temp 98.0 F 01/03/24 15:25 Pulse 82 01/03/24 15:25 Resp 20 01/03/24 15:25 BP 95/62 01/03/24 15:25 Pulse Ox 96 01/03/24 15:25 FiO2 28 01/03/24 09:23 Intake & Output 01/03/24 01/03/24 01/04/24 06:59 18:59 06:59 Intake Total 20 20 Output Total 1750 800 Balance -1730 -780 Weight 66.9 kg Intake: IV 20 20 Invasive Line 3 20 20 Output: Urine 1750 800 Other: Voiding Method Toilet Toilet Urinal Urinal # Voids 0 # Bowel Movements 0 - Labs CBC & Chem 7: 01/01/24 06:15 01/01/24 06:15 Labs: Abnormal Lab Results - Last 24 Hours (Table) 01/03/24 Range/Units 12:17 POC Glucose (mg/dL) 112 H (70-110) mg/dL
[2024-01-03 21:05] VITALS: TEMP 97.9
[2024-01-04 00:06] LABS: Glucose,Whole Blood 98 mg/dL (70-110)
[2024-01-04 06:05] LABS: Glucose,Whole Blood 84 mg/dL (70-110)
[2024-01-04 08:55] VITALS: RESP 18
[2024-01-04 10:12] LABS: Anisocytosis Slight; Basophils % (A) 1 %; Eosinophils # (A) 0.1 k/uL (0-0.7); Eosinophils % (A) 3 %; HCT 29.5 % (39.0-53.0); HGB 8.5 gm/dL (13.0-17.5); Hypochromasia Marked; Lymphocytes # (A) 0.6 k/uL (1.0-4.8); Lymphocytes % (A) 12 %; MCH 29.5 pg (25.0-35.0); MCHC 28.7 g/dL (31.0-37.0); MCV 102.8 fL (80.0-100.0); Macrocytosis Moderate; Mean Platelet Volume 8.5; Monocytes # (A) 0.4 k/uL (0-1.0); Monocytes % (A) 8 %; Neutrophils # (A) 3.6 k/uL (1.3-7.7); Neutrophils % (A) 73 %; Platelet Count 543 k/uL (150-450); RBC 2.87 m/uL (4.30-5.90); RDW 16.2 % (11.5-15.5); WBC 4.9 k/uL (3.8-10.6)
[2024-01-04 10:31] LABS: African American GFR (CKD) >90 (>60 ml/min/1.73 sqM); Anion Gap 1 mmol/L; Blood Urea Nitrogen 13 mg/dL (9-20); Calcium 8.6 mg/dL (8.4-10.2); Carbon Dioxide 36 mmol/L (22-30); Chloride 97 mmol/L (98-107); Glucose 88 mg/dL (74-99); Non-African American GFR(CKD) >90 (>60 ml/min/1.73 sqM); Potassium 4.9 mmol/L (3.5-5.1); Sodium 134 mmol/L (137-145)
[2024-01-04 12:02] LABS: Glucose,Whole Blood 115 mg/dL (70-110)
--- NOTE | 2024-01-04 12:12 | P.PN ---
Subjective Progress Note Date: 01/04/24 Principal diagnosis: Shortness of breath. Patient was reevaluated today on 12/27/2023, patient remains on 40% trach collar, continues to have chest tube in place, remains on antibiotics as per infectious disease, presently on Merrem. Patient is being treated for empyema and hydr opneumothorax. Labs including CBC and basic metabolic profile are normal patient seems to be comfortable, I believe infectious disease is planning treatment for at least 2 weeks for his empyema using Merrem. Patient does have a PICC line in place, wondering if this could be done at home but I do not believe the chest tube is ready to be removed yet, continues to drain, and the drainage is still purulent. Continues to have some pneumothorax but no airleak noted Reevaluate today on 12/28/2023, patient remains on 40% trach collar. Continues to have right-sided chest tube/pigtail catheter in place, continues to drain however the drainage is becoming minimal. Last CT of the chest did show ev idence of hydropneumothorax, updated thoracic surgery on the case, apparently Dr. Lubin is aware of the case, and he has no plans for decortication will have thoracic surgery evaluate the patient again, but over the phone no plans for decortication. In the meantime the patient is receiving antibiotics, and the plan is to give him 2 full weeks of IV antibiotics. Patient does not seem to be in distress, however I am quite concerned that once we remove the pigtail catheter, the fluid is going to build up again, and the patient may have a bit of a trapped lung. Was reevaluated today on 12/29/2023, patient continues to have pigtail catheter in place, continues to have some purulent secretions out of the pigtail catheter/right pleural space. Surgery is yet to decide on whether the patient would benefit from decortication. Patient seems to have a loculated right-sided pneumothorax and what seems to be a right trapped lung. Patient had multiple lytic instillation in the right pleural space, chest x-ray today showed improved in the loculation/loculated pneumothorax, and he continues to have subcutaneous emphysema with bibasilar infiltrates. WBC count is 9.2 hemoglobin is 8.7 basic metabolic profile is normal bicarb is 36, clinically the patient is feeling better remains on antibiotics as per ID on the case, still on Merrem. Patient was not today on 12/30/2023, patient is doing better, breathing easier, remains on trach collar, he is still draining from his pigtail catheter, had about 180 cc of purulent drainage from the pigtail catheter over the last 24 hours. Chest x-ray continues to show a loculated right-sided pneumothorax, thoracic surgery is not planning any surgical intervention after they reviewed his CT of the chest and his follow-up x-rays of the chest. Patient remains on antibiotics as per infectious disease on the case, he is receiving Merrem, patient has received almost 2 weeks of antibiotics, his white cell count normalized, discussed with surgery, no plans for surgical intervention, however considering the patient continues to have some fairly good amount of drainage, I would recommend keeping the pigtail catheter in place for now. And again the ruben zavala is still receiving Merrem as per ID on the caseWBC count is 5.3 hemoglobin 8.3 basic metabolic profile is normal renal profile is normal, in the meantime patient remains on 40% trach collar Reason for on 01/01/2024, patient is basically about the same, however it is nice to see that the patient has no more air leak in the chest tube today, and there is minimal drainage overnight. I believe we are about to consider removing his pigtail catheter on Wednesday, and consider discharging the patient home on Wednesday to follow-up on outpatient basis. Patient normally sees Dr. Whipple for his right midlung nodule and this could be followed on outpatient basis. His WBC count today is 4.5 hemoglobin 8.2 electrolytes are normal renal profile is normal. Patient was evaluated today on 01/02/2024, doing well, continues to have pigtail catheter in place, minimal drainage noted in the chest tube/Pleur-evac, no evidence of air leak, there is a loculated pneumothorax on the chest x-ray which is chronic patient was told today that he will have his pigtail catheter removed tomorrow and possibly discharge the patient home tomorrow. However few hours after I saw the patient I was notified by the nurse that the patient accidentally pulled out his pigtail catheter, and I am recommending a chest x- ray now and a follow-up chest x-ray in a.m. Clinically the patient is doing well, he finished over 2 weeks of antibiotics, patient has been treated with Merrem. And he continues to be followed by infectious disease on the case Progress note dated January 03, 2024. The patient is seen today in room 362. The patient is on trach collar 28%. He is receiving nutrition with TwoCal HN at 100 cc an hour. The patient's pigtail catheter fell out yesterday. Clinically, he looks very stable. He has no specific complaints today. No new labs today other than a glucose of 112. 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 His chest x-ray today is interpreted as being stable. There is some subcutaneous emphysema along the right chest wall. The left lung is clear. Progress note dated January 04, 2024. 58-year-old male seen again in room 362. The patient remains on trach collar at 28%. He is receiving nutrition with TwoCal HN at 100 cc an hour. The patient is not receiving any IV fluids. The patient continues on meropenem. When finally discharged, the patient will likely end up at a residential in [place]. Current labs include a white count 4.9, hemoglobin 8.5, hematocrit 29.5, and a platelet count of 543,000. Sodium 134, potassium 4.9, chlorides 97, CO2 36, BUN 13, and creatinine 0.59. Glucose is 115. Calcium is 8.6. 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 Chest x-ray from January 02, has been r [email or web address]. Objective - Vital Signs Vital signs: Vital Signs Temp 97.9 F 01/04/24 04:16 Pulse 76 01/04/24 08:16 Resp 18 01/04/24 11:47 BP 91/54 01/04/24 11:47 Pulse Ox 95 01/04/24 11:47 FiO2 28 01/04/24 00:47 Intake & Output 01/03/24 01/04/24 01/04/24 18:59 06:59 18:59 Intake Total 20 20 10 Output Total 800 500 Balance -780 -480 10 Weight 66.9 kg Intake: IV 20 20 10 Invasive Line 3 20 20 10 Output: Urine 800 500 Other: Voiding Method Toilet Toilet Urinal Urinal # Voids 0 # Bowel Movements 0 - Exam No acute distress, oriented 3. HEENT examination is grossly unremarkable. Mucous membranes are moist. No oral lesions. Neck supple. Full range of motion. No adenopathy thyromegaly or neck vein distention. Patient has a midline tracheostomy tube. Cardiovascular examination reveals regular rhythm rate. S1-S2 normal. No S3 or S4. No discernible murmur noted. Heart rate is 76 bpm. Heart sounds are distant. Lungs reveal mild scattered rhonchi. No wheezes or crackles. Pigtail catheter is no longer present. Saturations are 95%, on 28% trach collar. Abdomen soft bowel sounds are heard. No masses or tenderness. Extremities are intact. No cyanosis clubbing or edema. Skin is without rash or lesion. Neurologic examination is brief but nonfocal. - Labs CBC & Chem 7: 01/04/24 08:58 01/04/24 08:58 Labs: Abnormal Lab Results - Last 24 Hours (Table) 01/03/24 01/04/24 01/04/24 Range/Units 12:17 08:58 08:58 RBC 2.87 L (4.30-5.90) m/uL Hgb 8.5 L (13.0-17.5) gm/dL Hct 29.5 L (39.0-53.0) % MCV 102.8 H (80.0-100.0) fL MCHC 28.7 L (31.0-37.0) g/dL RDW 16.2 H (11.5-15.5) % Plt Count 543 H (150-450) k/uL Lymphocytes # 0.6 L (1.0-4.8) k/uL Sodium 134 L (137-145) mmol/L Chloride 97 L (98-107) mmol/L Carbon Dioxide 36 H (22-30) mmol/L Creatinine 0.59 L (0.66-1.25) mg/dL POC Glucose (mg/dL) 112 H (70-110) mg/dL 01/04/24 Range/Units 12:00 RBC (4.30-5.90) m/uL Hgb (13.0-17.5) gm/dL Hct (39.0-53.0) % MCV (80.0-100.0) fL MCHC (31.0-37.0) g/dL RDW (11.5-15.5) % Plt Count (150-450) k/uL Lymphocytes # (1.0-4.8) k/uL Sodium (137-145) mmol/L Chloride (98-107) mmol/L Carbon Dioxide (22-30) mmol/L Creatinine (0.66-1.25) mg/dL POC Glucose (mg/dL) 115 H (70-110) mg/dL Assessment and Plan Assessment: Acute empyema with acute right hydropneumothorax, requiring drainage, via pigtail catheter. Acute hemoptysis, resolved. Acute on chronic hypoxemic respiratory failure. History of laryngeal cancer, status post chemoradiation, and tracheostomy. History of PEG tube insertion. History of COPD. History of hypothyroidism. Chronic and ongoing tobacco dependence. Plan: Plan dated January 03, 2024. Yesterday, the patient's pigtail catheter fell out. Clinically, the patient appears to be doing relatively well. The patient continues on antibiotics in the form of meropenem. He also continues on his trach collar at 28%. He is not receiving any IV fluids. He is getting tube feedings, with TwoCal HN at 100 cc an hour. Labs, x-rays, and medications are reviewed. The patient is overall prognosis remains guarded. We will continue to follow make recommendations were appropriate. Plan dated January 04, 2024. The patient appears to be doing relatively well. The patient states that he is feeling well, and hoping to be discharged soon. The patient continues on meropenem. The patient will be eventually discharged to a residential, in [place], [place]. Labs, x-rays, and medications are reviewed. His saturations are in the mid to high 90s on 28% trach collar. The patient is receiving tube feedings, with TwoCal HN at 100 cc an hour. We will continue to follow make recommendations along the way. Prognosis is guarded. Time with Patient: Less than 30
--- NOTE | 2024-01-04 12:54 | XR ---
EXAMINATION TYPE: XR chest 1V portable DATE OF EXAM: 01/04/2024 HISTORY: Shortness of breath. COMPARISON: 01/03/2024 TECHNIQUE: Single view of the chest is submitted. FINDINGS: Stable loculated pneumothorax right lateral lung base. Stable pleural-parenchymal opacity and subcuta neous air along the right chest. Mild hyperinflation of the left lung. Tracheostomy tube is in place. The heart is stable. Hilar and mediastinal structures are within normal limits. Degenerative changes are seen of the dorsal spine. IMPRESSION: 1. Stable loculated pneumothorax right lateral lung base. Stable pleural-parenchymal opacity and sub cutaneous air along the right chest.
[2024-01-04] MEDS: IPRATROPIUM-ALBUTEROL 3 ML NEB INHALATION PRN (12:59)
--- NOTE | 2024-01-04 14:39 | P.PN ---
Subjective Progress Note Date: 01/02/24 Principal diagnosis: Reason for follow-up is pneumonia/empyema Patient is a 58-year male with a history of squamous cell carcinoma head and neck s/p trach and PEG recent CT chest with heterogeneous mass right middle lobe s/p bronchoscopy culture negative presenting back to the hospital with worsening shortness of breath with a repeat CT shows large right hydropneumothorax s/p chest tube placement and concerning for empyema. On today's evaluation that is 01/02/2024, the patient continues to be afebrile, the patient is on 5 L trach collar and breathing comfortably, the Pt denies having any chest pain or cough, the patient denies having any abdominal pain no vomiting or any diarrhea has been reported by the nursing staff, no new symptoms. No new labs has been obtained today Objective - Vital Signs Vital signs: Vital Signs Temp 97.6 F 01/02/24 07:49 Pulse 83 01/02/24 07:49 Resp 18 01/02/24 07:49 BP 90/50 01/02/24 07:49 Pulse Ox 95 01/02/24 07:49 FiO2 28 01/01/24 12:38 Intake & Output 01/01/24 01/02/24 01/02/24 18:59 06:59 18:59 Intake Total 10 10 Output Total 1445 1307 0 Balance -1435 -1307 10 Intake: IV 10 10 Invasive Line 3 10 10 Output: Chest Tube Drainage 45 7 0 Chest Tube Right 45 7 0 Posterior Chest Urine 1400 1300 Other: Voiding Method Toilet Toilet Urinal Urinal - Exam GENERAL DESCRIPTION: Middle-age male up in bed in no distress RESPIRATORY SYSTEM: Unlabored breathing , decreased breath sounds at bases HEART: S1 S2 regular rate and rhythm , ABDOMEN: Soft , no tenderness EXTREMITIES: No edema feet - Labs CBC & Chem 7: 01/04/24 08:58 01/04/24 08:58 Labs: Abnormal Lab Results - Last 24 Hours (Table) 01/01/24 01/01/24 Range/Units 11:19 16:21 POC Glucose (mg/dL) 115 H 124 H (70-110) mg/dL Assessment and Plan (1) Empyema Current Visit: Yes Status: Acute Code(s): J86.9 - PYOTHORAX WITHOUT FISTULA SNOMED Code(s): 786536087 (2) Leukocytosis Current Visit: Yes Status: Acute Code(s): D72.829 - ELEVATED WHITE BLOOD C ELL COUNT, UNSPECIFIED SNOMED Code(s): 275733431 (3) Pneumonia Current Visit: Yes Status: Acute Priority: High Code(s): J18.9 - PNEUMONIA, UNSPECIFIED ORGANISM SNOMED Code(s): 762630681 Plan: 1patient presenting to the hospital with increasing shortness of breath and hemoptysis in this patient who did have a CT of the chest with evidence of moderate right effusion with multiple air-fluid level concerning for empyema status post chest tube placement 2-the patient sputum as well as sputum culture did grew Burkholderia cepacia that is intermediate to ceftazidime sensitive to meropenem 3-patient is afebrile patient did have normalization of the white count, patient to continue with the meropenem will need IV meropenem on discharge discussed with the nursing staff Dictation was produced using [employer] dictation software. please excuse any grammatical, word or spelling errors. Time with Patient: Less than 30
--- NOTE | 2024-01-04 14:40 | P.PN ---
Subjective Progress Note Date: 01/03/24 Principal diagnosis: Reason for follow-up is pneumonia/empyema Patient is a 58-year male with a history of squamous cell carcinoma head and neck s/p trach and PEG recent CT chest with heterogeneous mass right middle lobe s/p bronchoscopy culture negative presenting back to the hospital with worsening shortness of breath with a repeat CT shows large right hydropneumothorax s/p chest tube placement and concerning for empyema. On today's evaluation that is 01/03/2024, Patient is afebrile patient is currently on 5 L trach collar and denies having any shortness of breath, the patient denies any chest pain and cough has decreased in intensity, the patient denies any nausea vomiting did not have any abdominal pain and no diarrhea feeling better. Patient pigtail catheter was discontinued No new labs has been obtained today Objective - Vital Signs Vital signs: Vital Signs Temp 97.9 F 01/03/24 20:48 Pulse 80 01/03/24 20:48 Resp 21 01/03/24 20:48 BP 97/64 01/03/24 20:48 Pulse Ox 95 01/03/24 20:48 FiO2 28 01/03/24 09:23 Intake & Output 01/03/24 01/03/24 01/04/24 06:59 18:59 06:59 Intake Total 20 20 10 Output Total 1750 800 Balance -1730 -780 10 Weight 66.9 kg Intake: IV 20 20 10 Invasive Line 3 20 20 10 Output: Urine 1750 800 Other: Voiding Method Toilet Toilet Toilet Urinal Urinal Urinal # Voids 0 # Bowel Movements 0 - Exam GENERAL DESCRIPTION: Middle-age male up in bed in no distress RESPIRATORY SYSTEM: Unlabored breathing , decreased breath sounds at bases HEART: S1 S2 regular rate and rhythm , ABDOMEN: Soft , no tenderness EXTREMITIES: No edema feet - Labs CBC & Chem 7: 01/04/24 08:58 01/04/24 08:58 Labs: Abnormal Lab Results - Last 24 Hours (Table) 01/03/24 Range/Units 12:17 POC Glucose (mg/dL) 112 H (70-110) mg/dL Assessment and Plan (1) Empyema Current Visit: Yes Status: Acute Code(s): J86.9 - PYOTHORAX WITHOUT FISTULA SNOMED Code(s): 924576679 (2) Leukocytosis Current Visit: Yes Status: Acute Code(s): D72.829 - ELEVATED WHITE BLOOD CELL COUNT, UNSPECIFIED SNOMED Code(s): 677156997 (3) Pneumonia Current Visit: Yes Status: Acute Priority: High Code(s): J18.9 - PNEUMON IA, UNSPECIFIED ORGANISM SNOMED Code(s): 983905928 Plan: 1patient presenting to the hospital with increasing shortness of breath and hemoptysis in this patient who did have a CT of the chest with evidence of moderate right effusion with multiple air-fluid level concerning for empyema status post chest tube placement 2-the patient sputum as well as 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 please excuse any grammatical, word or spelling errors. Time with Patient: Less than 30
--- NOTE | 2024-01-04 14:41 | P.PN ---
Subjective Progress Note Date: 01/04/24 Principal diagnosis: Reason for follow-up is pneumonia/empyema Patient is a 58-year male with a history of squamous cell carcinoma head and neck s/p trach and PEG recent CT chest with heterogeneous mass right middle lobe s/p bronchoscopy culture negative presenting back to the hospital with worsening shortness of breath with a repeat CT shows large right hydropneumothorax s/p chest tube placement and concerning for empyema. On today's evaluation that is 01/04/2024, patient has been afebrile, patient is breathing comfortably and is currently on 5 L trach collar patient denies having any significant cough or sputum production no chest pain shortness of breath, pa lucas denies nausea vomiting or diarrhea and no abdominal pain. The patient white count is 4.8, creatinine 0.59 blood culture has been negative patient did have a chest x-ray stable loculated pneumothorax right lateral lung base Objective - Vital Signs Vital signs: Vital Signs Temp 97.9 F 01/04/24 04:16 Pulse 72 01/04/24 13:13 Resp 18 01/04/24 11:47 BP 91/54 01/04/24 11:47 Pulse Ox 95 01/04/24 11:47 FiO2 28 01/04/24 12:55 Intake & Output 01/03/24 01/04/24 01/04/24 18:59 06:59 18:59 Intake Total 20 20 10 Output Total 800 500 Balance -780 -480 10 Weight 66.9 kg Intake: IV 20 20 10 Invasive Line 3 20 20 10 Output: Urine 800 500 Other: Voiding Method Toilet Toilet Urinal Urinal # Voids 0 # Bowel Movements 0 - Exam GENERAL DESCRIPTION: Middle-age male up in bed in no distress RESPIRATORY SYSTEM: Unlabored breathing , decreased breath sounds at bases HEART: S1 S2 regular rate and rhythm , ABDOMEN: Soft , no tenderness EXTREMITIES: No edema feet - Labs CBC & Chem 7: 01/04/24 08:58 01/04/24 08:58 Labs: Abnormal Lab Results - Last 24 Hours (Table) 01/04/24 01/04/24 01/04/24 Range/Units 08:58 08:58 12:00 RBC 2.87 L (4.30-5.90) m/uL Hgb 8.5 L (13.0-17.5) gm/dL Hct 29.5 L (39.0-53.0) % MCV 102.8 H (80.0-100.0) fL MCHC 28.7 L (31.0-37.0) g/dL RDW 16.2 H (11.5-15.5) % Plt Count 543 H (150-450) k/uL Lymphocytes # 0.6 L (1.0-4.8) k/uL Sodium 134 L (137-145) mmol/L Chloride 97 L (98-107) mmol/L Carbon Dioxide 36 H (22-30) mmol/L Creatinine 0.59 L (0.66-1.25) mg/dL POC Glucose (mg/dL) 115 H (70-110) mg/dL Assessment and Plan (1) Empyema Current Visit: Yes Status: Acute Code(s): J86.9 - PYOTHORAX WITHOUT FISTULA SNOMED Code(s): 605748209 (2) Leukocytosis Current Visit: Yes Status: Acute Code(s): D72.829 - ELEVATED WHITE BLOOD CELL COUNT, UNSPECIFIED SNOMED Code(s): 181584655 (3) Pneumonia Current Visit: Yes Status: Acute Priority: High Code(s): J18.9 - PNEUMONIA, UNSPECIFIED ORGANISM SNOMED Code(s): 178859388 Plan: 1patient presenting to the hospital with increasing shortness of breath and hemoptysis in this patient who did have a CT of the chest with evidence of mo derate right effusion with multiple air-fluid level concerning for empyema status post chest tube placement 2-the patient sputum as well as 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 please excuse any grammatical, word or spelling errors. Time with Patient: Less than 30
--- NOTE | 2024-01-04 15:39 | P.DS ---
Providers Date of admission: 12/19/23 19:05 Expected date of discharge: 01/04/24 Attending physician: Ronny Johns Consults: 12/19/23 16:31 Consult Physician Urgent Consulting Provider: Edmar Wood Consult Reason/Comments: Pneumothorax, lung mass, laryngeal mass Do you want consulting provider notified?: Yes 12/19/23 16:33 Consult Physician Urgent Consulting Provider: Bonnie Bernard Consult Reason/Comments: Laryngal cancer, lung cancer Do you want consulting provider notified?: Yes 12/22/23 14:20 Consult Physician Urgent Consulting Provider: Chadd Jc Consult Reason/Comments: pna, pneumothorax, empyema? Do you want consulting provider notified?: Yes Primary care physician: Letty Sibley Hospital Course: Final diagnosis Acute large right-sided hydropneumothorax status post chest tube placement with decrease in size of the right-sided hydropneumothorax and partial reexpansion. Acute on chronic hypoxemic respiratory failure secondary to above, on trach collar FiO2 is 28% and O2 is 5 L Right-sided empyema, status post pigtail catheter placement, status post daily alteplase administration through chest tube, patient apparently removed his pigtail catheter on accident yesterday 01/02/2024 and repeat chest x-ray is stable. Continued subcutaneous emphysema noted on imaging although stable status post pigtail catheter removal on the right Acute hemoptysis on admission, resolved History of laryngeal cancer status post chemoradiation in July 2023 and tracheostomy and PEG tube placement. Patient had PET scan done in September 2023 showed persistent uptake in the posterior lateral right cord level compatible with neoplasm. Patient declined biopsy on previous admission recently Recent admission for from 11/19/2023 to 12/17/2023 postobstructive pneumonia and also CT evidence of lobular heterogenous mass and necrotic components in the right middle lobe. Status post bronchoscopy and biopsy. BAL cultures negative and biopsies nondiagnostic for malignancy. Hypothyroidism History of Graves' disease COPD Ongoing nicotine addiction DVT prophylaxis with heparin subcu GI prophylaxis Full code Discharge disposition Patient is being discharged in a stable condition with guarded prognosis to [facility]. Patient will follow-up with Dr. Sibley in the outpatient setting upon discharge. Patient is to continue with PICC line and IV antibiotics in the form of meropenem every 8 hours for the next 2 weeks with close outpatient follow-up with infectious disease as well as pulmonary and oncology As scheduled. Recommend follow-up chest x-ray in the next 10 to 12 days prior to discontinuing antibiotics per ID recommendations to monitor resolution of right-sided loculation. Total time taken is greater than 35 minutes. Hospital course This is a 58-year-old male who was recently admitted with increasing shortness of breath with acute large right-sided hydropneumothorax status post chest tube placement. Patient was also noticed to have a loculated empyema and is status post pigtail catheter placement with removal on 01/02/2024. Patient continues with stable findings on chest x-ray with continued subcutaneous emphysema on the right. Patient continues with PEG tube and tracheostomy and FiO2 is 25% with a oxygen of 5 L and tolerating. Patient to continue with DuoNeb treatments as needed. Continue pain regimen and bowel regimen scheduled and as needed. Patient has had prolonged hospitalization and will be continued on 2 weeks of IV antibiotics on discharge. Patient does have a PICC line and will follow-up with infectious disease in the outpatient setting as well. Patient is agreeable to no oncological care during ECF and will follow-up with oncology once discharged from ECF. Patient to follow-up with primary care provider on discharge as well. Please refer to other consultation notes for further HPI. Patient has been cleared for discharge and is stable to F today. Insurance authorization was obtained and patient will be going to [facility]. Currently no reports of chest pain, no worsening shortness of breath, or palpitations. Patient is afebrile. No reports of nausea or vomiting and patient is tolerating tube feeding. Patient will be going to [facility] today. Overall poor and guarded prognosis Physical exam: Gen: This is a 58-year-old male who is awake, alert and oriented x 3, well- developed, thin built, elderly appearing, cachectic HEENT: Head is atraumatic, normocephalic. Pupils equal, round. Sclerae is anicteric. NECK: Supple. No JVD. No lymphadenopathy. No thyromegaly. LUNGS: Diminished breath sounds bilaterally otherwise clear to auscultation. No wheezes or rhonchi. There is noted subcutaneous emphysema on the right on auscultation. No intercostal retractions. HEART: Regular rate and rhythm. No murmur. ABDOMEN: Soft. Thin, cachectic, PEG tube noted bowel sounds are present. No masses. No tenderness. EXTREMITIES: No pedal edema. No calf tenderness. NEUROLOGICAL: Patient is awake, alert and oriented x3. Cranial nerves 2 through 12 are grossly intact. Please refer to medication reconciliation sheet for a list of medications. The impression and plan of care has been dictated by Virginie Urbina, Nurse Practitioner as directed. Dr. Adriel MD I have performed a history and examination and MDM of this patient, discussed the same with the dictator, and agree with the dictator's assessment and plan as written ,documented as a scribe. Based on total visit time, I have performed more than 50% of the visit. Patient Condition at Discharge: Poor Plan - Discharge Summary New Discharge Prescriptions: New Ipratropium-Albuterol Nebulize [Duoneb 0.5 mg-3 mg/3 ml Soln] 3 ml INHALATION RT-QID PRN each PRN Reason: Shortness Of Breath Or Wheezing Heparin Sodium,Porcine (1 ml) [Heparin Sodium] 5,000 unit SQ Q8HR each Meropenem [Merrem] 1 gm IVPB Q8HR #42 each polyethylene glycoL 3350 [Miralax] 17 gm PEG/G-TUBE DAILY packet Sennosides [Senokot] 8.6 mg PO BID tab Acetaminophen Tab [Tylenol] 650 mg PO Q6HR PRN tab PRN Reason: Mild Pain Or Fever > 100.5 Continue Acetaminophen Suppository [Tylenol Suppository] 650 mg RECTAL Q4H PRN PRN Reason: Fever And/ Or Pain bisacodyL [Dulcolax] 10 mg RECTAL DAILY PRN PRN Reason: Constipation fentaNYL 25MCG/HR PATCH [Duragesic 25MCG/HR] 1 patch TRANSDERM Q72H #1 patch Omeprazole [PriLOSEC] 20 mg PEG/G-TUBE BID PRN PRN Reason: acid reflux Ibuprofen [Motrin] 800 mg PEG/G-TUBE Q8H PRN PRN Reason: Pain Or Fever > 100.5 Haloperidol Oral Soln [Haldol Oral Soln] 1 mg PEG/G-TUBE Q4H PRN PRN Reason: Severe Agitation/Nausea Scopolamine [Scopolamine 1 MG/72 HR patch] 1 patch TRANSDERM Q72H PRN PRN Reason: Nausea Albuterol Sulfate/Budesonide [Airsupra 90-80 Mcg Inhaler] 1 puff INHALATION RT-BID LORazepam [Ativan] 1 mg PEG/G-TUBE Q4H PRN #2 tab PRN Reason: Anxiety/Agitation HYDROcodone/APAP 5-325MG [[place] 5-325] 2 tab PEG/G-TUBE Q4H PRN #6 tab PRN Reason: Pain Discontinued MORPHINE ORAL DAISY CONC 20mg/mL [Roxanol Oral Soln Conc 20MG/ML] 5 mg PEG/G- TUBE Q4HR PRN PRN Reason: Pain predniSONE See Taper PEG/G-TUBE DIRECTED Amoxic-Pot Clav 875-125Mg [Augmentin 875-125] 1 tab PEG/G-TUBE Q12HR Discharge Medication List Omeprazole [PriLOSEC] 20 mg PEG/G-TUBE BID PRN 05/20/23 [History] Ibuprofen [Motrin] 800 mg PEG/G-TUBE Q8H PRN 12/09/23 [History] Acetaminophen Suppository [Tylenol Suppository] 650 mg RECTAL Q4H PRN 12/19/23 [History] Albuterol Sulfate/Budesonide [Airsupra 90-80 Mcg Inhaler] 1 puff INHALATION RT- BID 12/19/23 [History] Haloperidol Oral Soln [Haldol Oral Soln] 1 mg PEG/G-TUBE Q4H PRN 12/19/23 [History] Scopolamine [Scopolamine 1 MG/72 HR patch] 1 patch TRANSDERM Q72H PRN 12/19/23 [History] bisacodyL [Dulcolax] 10 mg RECTAL DAILY PRN 12/19/23 [History] Acetaminophen Tab [Tylenol] 650 mg PO Q6HR PRN tab 01/04/24 [Rx] HYDROcodone/APAP 5-325MG [[place] 5-325] 2 tab PEG/G-TUBE Q4H PRN #6 tab 01/04/24 [Rx] Heparin Sodium,Porcine (1 ml) [Heparin Sodium] 5,000 unit SQ Q8HR each 01/04/24 [Rx] Ipratropium-Albuterol Nebulize [Duoneb 0.5 mg-3 mg/3 ml Soln] 3 ml INHALATION RT-QID PRN each 01/04/24 [Rx] LORazepam [Ativan] 1 mg PEG/G-TUBE Q4H PRN #2 tab 01/04/24 [Rx] Meropenem [Merrem] 1 gm IVPB Q8HR #42 each 01/04/24 [Rx] Sennosides [Senokot] 8.6 mg PO BID tab 01/04/24 [Rx] fentaNYL 25MCG/HR PATCH [Duragesic 25MCG/HR] 1 patch TRANSDERM Q72H #1 patch 01/04/24 [Rx] polyethylene glycoL 3350 [Miralax] 17 gm PEG/G-TUBE DAILY packet 01/04/24 [Rx] Follow up Appointment(s)/Referral(s): Ck Moreira [STAFF PHYSICIAN] - 01/10/24 2:30 pm [facility], [NON-STAFF] - Letty Sibley DO [Primary Care Provider] - 1-2 days Chadd Jc MD [STAFF PHYSICIAN] - 1 Week Activity/Diet/Wound Care/Special Instructions: Patient is going to [facility] Activity as tolerated Follow-up with pulmonary outpatient Follow-up with oncology outpatient Follow-up with infectious disease outpatient Recommend repeat chest x-ray in 10 days to 2 weeks prior to discontinuation of antibiotics to evaluate right loculated effusion with post empyema and pigtail catheter Continue antibiotic therapy per ID recommendations for at least 2 weeks and follow-up on chest x-ray prior to discontinuing antibiotics Continue bowel regimen scheduled and as needed Continue with tube feedings in the form of TwoCal HN with a rate of 100, 1500 mL total volume daily and free water bolus flushes of 30 mL every 4 hours Discharge Disposition: TRANSFER TO SNF/ECF
[2024-01-04 15:44] VITALS: BP 97/61; PULSE 82
== END 2024-01-04 19:21 | DRG 186 ==
LOC: EC 10:29 → 3SCARD 19:05
PROVIDERS: ADMIT Hospitalist; ATTEND Hospitalist
PROC: 0W9930Z Drainage of Right Pleural Cavity with Drainage Device, Percutaneous Approach (ICD-10-PCS; principal; 2023-12-19)
PROC: 5A0935A Assistance with Respiratory Ventilation, Less than 24 Consecutive Hours, High Flow/Velocity Cannula (ICD-10-PCS; 2023-12-22)
PROC: 3E04317 Introduction of Other Thrombolytic into Central Vein, Percutaneous Approach (ICD-10-PCS; 2023-12-22)
DX: J94.8 Other specified pleural conditions (principal); J15.0 Pneumonia due to Klebsiella pneumoniae; J96.21 Acute and chronic respiratory failure with hypoxia; J86.9 Pyothorax without fistula; J15.8 Pneumonia due to other specified bacteria; T79.7XXA Traumatic subcutaneous emphysema, initial encounter; C78.39 Secondary malignant neoplasm of other respiratory organs; R04.2 Hemoptysis; J98.11 Atelectasis; Z93.0 Tracheostomy status; J43.8 Other emphysema; Z93.1 Gastrostomy status; E03.9 Hypothyroidism, unspecified; F17.210 Nicotine dependence, cigarettes, uncomplicated; K59.03 Drug induced constipation; T40.695A Adverse effect of other narcotics, initial encounter; K30 Functional dyspepsia; R91.8 Other nonspecific abnormal finding of lung field; J91.8 Pleural effusion in other conditions classified elsewhere; R53.81 Other malaise; B96.89 Other specified bacterial agents as the cause of diseases classified elsewhere; C44.42 Squamous cell carcinoma of skin of scalp and neck; Z85.01 Personal history of malignant neoplasm of esophagus; Z85.21 Personal history of malignant neoplasm of larynx; Z92.21 Personal history of antineoplastic chemotherapy; Z92.3 Personal history of irradiation; Z79.51 Long term (current) use of inhaled steroids; Z87.19 Personal history of other diseases of the digestive system; Z86.39 Personal history of other endocrine, nutritional and metabolic disease; Z97.8 Presence of other specified devices
CPT/HCPCS: 32551; 36410; 36415; 71045; 71046; 71250; 74018; 76937; 76942; 80048; 80053; 80202; 82565; 82945; 83605; 83615; 83735; 84145; 84155; 84157; 85025; 85610; 87040; 87070; 87075; 87077; 87102; 87116; 87186; 87205; 87206; 88108; 88305; 89050; 94640; 94760; 96365; 96366; 96375; 96376; 99291

== ENCOUNTER 2024-01-24 09:51 | Emergency (ER) | payer BC ==
--- NOTE | 2024-01-24 10:07 | ED ---
General Adult HPI - General Chief complaint: Recheck/Abnormal Lab/Rx Stated complaint: KALINA Time Seen by Provider: 01/24/24 10:00 Source: patient, family, RN notes reviewed Mode of arrival: wheelchair Limitations: language barrier - History of Present Illness Initial comments: Patient is a 58-year-old male presenting to the emergency department with conc erns with problems for his trach. Patient has had trach present since May. Patient feels like it is somewhat moved and only works when he is holding a certain way. No new cough or congestion. No fever. Patient feels like there is no problems with his lungs. Patient has not had his trach suctioned in a while. Patient requests pain medication secondary to throat cancer. - Related Data Home Medications Medication Instructions Recorded Confirmed Ibuprofen [Motrin Ib] 200 - 400 mg PEG/G-TUBE Q6H PRN 01/24/24 01/24/24 oxyCODONE HCL [oxyCODONE HCL (IR)] 10 mg PEG/G-TUBE Q6H PRN 01/24/24 01/24/24 traMADol HCL 50 mg PEG/G-TUBE QID PRN 01/24/24 01/24/24 Allergies Allergy/AdvReac Type Severity Reaction Status Date / Time No Known Allergies Allergy Verified 01/24/24 12:18 Review of Systems ROS Statement: Those systems with pertinent positive or pertinent negative responses have been documented in the HPI. ROS Other: All systems not noted in ROS Statement are negative. Constitutional: Denies: fever Eyes: Denies: eye pain ENT: Reports: as per HPI Respiratory: Reports: as per HPI Cardiovascular: Denies: chest pain Musculoskeletal: Denies: back pain Past Medical History Past Medical History: Cancer, COPD, Syncope, Thyroid Disorder Additional Past Medical History / Comment(s): Graves disease, diverticulosis, esophageal cancer with radiation and chemolast 08/05 at [facility] History of Any Multi-Drug Resistant Organisms: None Reported Past Surgical History: Tonsillectomy Additional Past Surgical History / Comment(s): vasectomy, biopsy of throat, trach Past Anesthesia/Blood Transfusion Reactions: No Reported Reaction Past Psychological History: No Psychological Hx Reported Smoking Status: Current every day smoker Past Alcohol Use History: None Reported Past Drug Use History: None Reported - Past Family History Father History Unknown: Yes General Exam Limitations: no limitations General appearance: alert, in no apparent distress Head exam: Present: normocephalic Eye exam: Present: normal appearance Neck exam: Present: other (Trach is present without obvious obstruction) Respiratory exam: Present: rhonchi Cardiovascular Exam: Present: regular rate, normal rhythm GI/Abdominal exam: Present: soft. Absent: tenderness Extremities exam: Present: normal inspection Neurological exam: Present: alert Psychiatric exam: Present: normal affect, normal mood Skin exam: Present: normal color Course Vital Signs 01/24/24 01/24/24 01/24/24 09:53 10:00 11:00 Temperature 98.8 F Pulse Rate 115 H 110 H Respiratory 22 22 18 Rate Blood Pressure 100/67 110/83 O2 Sat by Pulse 97 97 Oximetry 01/24/24 11:30 Temperature Pulse Rate 105 H Respiratory 18 Rate Blood Pressure 120/80 O2 Sat by Pulse 96 Oximetry Medical Decision Making - Medical Decision Making Was pt. sent in by a medical professional or institution (, PA, DISTRIBUTION SUPERINTENDENT, urgent care, hospital, or fci...) When possible be specific @ -No Did you speak to anyone other than the patient for history (EMS, parent, family, police, friend...)? What history was obtained from this source @ -No Did you review nursing and triage notes (agree or disagree)? Why? @ -I reviewed and agree with nursing and triage notes Were old charts reviewed (outside hosp., previous admission, EMS record, old EKG, old radiological studies, urgent care reports/EKG's, fci records)? Report findings @ -No old charts were reviewed Differential Diagnosis (chest pain, altered mental status, abdominal pain women, abdominal pain men, vaginal bleeding, weakness, fever, dyspnea, syncope, headache, dizziness, GI bleed, back pain, seizure, CVA, palpatations, mental health, musculoskeletal)? @ -Differential Dyspnea: Coronary syndrome, arrhythmia, tamponade, asthma, COPD, pulmonary embolism, pneumonia, pneumothorax, pulmonary effusion, anaphylaxis, diabetic ketoacidosis, flailed chest, pulmonary contusion, diaphragmatic rupture, anemia, neuromuscul ar, this is not meant to be an all-inclusive list. EKG interpreted by me (3pts min.). @ -As above X-rays interpreted by me (1pt min.). @ -Chest x-ray shows right-sided lateral loculated air-fluid level CT interpreted by me (1pt min.). @ -CT soft tissue neck redemonstrates left-sided laryngeal mass. Small mucous debris. Tracheal lumen appears patent. U/S interpreted by me (1pt. min.). @ -None done What testing was considered but not performed or refused? (CT, X-rays, U/S, labs)? Why? @ -None What meds were considered but not given or refused? Why? @ -None Did you discuss the management of the patient with other professionals (professionals i.e. , PA, DISTRIBUTION SUPERINTENDENT, lab, RT, psych nurse, social media developer, pick up and delivery driver, teacher, corporate officer, case supervisor)? Give summary @ -No Was smoking cessation discussed for >3mins.? @ -No Was critical care preformed (if so, how long)? @ -No Were there social determinants of health that impacted care today? How? (Homelessness, low income, unemployed, alcoholism, drug addiction, transportation, low edu. Level, literacy, decrease access to med. care, [place] [facility], rehab)? @ -No Was there de-escalation of care discussed even if they declined (Discuss DNR or withdrawal of care, Hospice)? DNR status @ -No What co-morbidities impacted this encounter? (DM, HTN, Smoking, COPD, CAD, Cancer, CVA, ARF, Chemo, Hep., AIDS, mental health diagnosis, sleep apnea, morb id obesity)? @ -Laryngeal mass Was patient admitted / discharged? Hospital course, mention meds given and route, prescriptions, significant lab abnormalities, going to OR and other pertinent info. @ -Patient reevaluated and resting comfortably in bed. Patient was suctioned by respiratory. Patient is comfortable with his breathing and comfortable with discharge home. Patient is agreeable with follow-up. Undiagnosed new problem with uncertain prognosis? @ -No Drug Therapy requiring intensive monitoring for toxicity (Heparin, Nitro, Insulin, Cardizem)? @ -No Were any procedures done? @ -No Diagnosis/symptom? @ -Dyspnea Acute, or Chronic, or Acute on Chronic? @ -Acute Uncomplicated (without systemic symptoms) or Complicated (systemic symptoms)? @ -Default Side effects of treatment? @ -No Exacerbation, Progression, or Severe Exacerbation? @ -No Poses a threat to life or bodily function? How? (Chest pain, [place], [place], pneumonia, PE, COPD, DKA, ARF, appy, cholecystitis, CVA, Diverticulitis, Homicidal, Suicidal, threat to staff... and all critical care pts) @ -No - Lab Data Result diagrams: 01/24/24 11:15 01/24/24 11:15 Lab Results 01/24/24 01/24/24 01/24/24 Range/Units 11:15 11:15 11:15 WBC 13.3 H (3.8-10.6) k/uL RBC 3.26 L (4.30-5.90) m/uL Hgb 9.9 L (13.0-17.5) gm/dL Hct 32.5 L (39.0-53.0) % MCV 99.7 (80.0-100.0) fL MCH 30.4 (25.0-35.0) pg MCHC 30.5 L (31.0-37.0) g/dL RDW 15.4 (11.5-15.5) % Plt Count 705 H (150-450) k/uL MPV 8.1 Neutrophils % 85 % Lymphocytes % 7 % Monocytes % 4 % Eosinophils % 1 % Basophils % 1 % Neutrophils # 11.4 H (1.3-7.7) k/uL Lymphocytes # 0.9 L (1.0-4.8) k/uL Monocytes # 0.6 (0-1.0) k/uL Eosinophils # 0.1 (0-0.7) k/uL Basophils # 0.1 (0-0.2) k/uL Hypochromasia Moderate Macrocytosis Slight PT 10.7 (10.0-12.5) sec INR 1.0 (<1.2) APTT 30.3 H (22.0-30.0) sec Sodium 138 (137-145) mmol/L Potassium 4.4 (3.5-5.1) mmol/L Chloride 106 (98-107) mmol/L Carbon Dioxide 23 (22-30) mmol/L Anion Gap 9 mmol/L BUN 14 (9-20) mg/dL Creatinine 0.51 L (0.66-1.25) mg/dL Est GFR (CKD-EPI)AfAm >90 (>60 ml/min/1.73 sqM) Est GFR (CKD-EPI)NonAf >90 (>60 ml/min/1.73 sqM) Glucose 90 (74-99) mg/dL Calcium 9.2 (8.4-10.2) mg/dL Total Bilirubin 0.7 (0.2-1.3) mg/dL AST 25 (17-59) U/L ALT 19 (4-49) U/L Alkaline Phosphatase 134 H (38-126) U/L Total Protein 6.9 (6.3-8.2) g/dL Albumin 3.6 (3.5-5.0) g/dL Disposition Clinical Impression: Dyspnea, Laryngeal mass Disposition: HOME SELF-CARE Condition: Stable Instructions (If sedation given, give patient instructions): Dyspnea (ED), Tracheostomy Care (ED) Additional Instructions: Please follow-up with your primary care physician, ENT and pulmonary doctor this week. Return for difficulty breathing, fevers, worsening or changing symptoms or other concerns Is patient prescribed a controlled substance at d/c from ED?: No Referrals: Barrett Dorsey MD [STAFF PHYSICIAN] - 1-2 days Mahamed Brennan DO [Doctor of Osteopathic Medicine] - 1-2 days Luis Whipple MD [STAFF PHYSICIAN] - 1-2 days Time of Disposition: 12:48
[2024-01-24] MEDS: HYDROmorphone 1 MG/ML 1 ML SYRINGE IM STA (10:13)
[2024-01-24 10:18] VITALS: TEMP 98.8
--- NOTE | 2024-01-24 11:01 | XR ---
EXAMINATION TYPE: XR chest 1V portable DATE OF EXAM: 01/24/2024 Comparison: 01/03/2014 Clinical History: 58 year-old male shortness of breath, difficulty breathing Findings: Right heart margin obscured by adjacent pleural parenchymal opacity. Tracheostomy cannula. Hyperinfla tion. Loculated pleural air collection at the lateral right base estimated to measure 9.1 cm which ma y be slightly smaller. However, there is now fluid filling within the pleural air. The adjacent patch y opacities throughout the right lower lung are similar. Impression: COPD with ongoing loculated pleural air collection at the lateral right base measuring approximately 9.1 cm, slightly smaller. However, it is now partially filling with pleural fluid. Prominent patchy r ight lower lung opacities are fairly similar.
[2024-01-24 11:23] LABS: Basophils # (A) 0.1 k/uL (0-0.2); Basophils % (A) 1 %; Eosinophils # (A) 0.1 k/uL (0-0.7); Eosinophils % (A) 1 %; HCT 32.5 % (39.0-53.0); HGB 9.9 gm/dL (13.0-17.5); Hypochromasia Moderate; Lymphocytes # (A) 0.9 k/uL (1.0-4.8); Lymphocytes % (A) 7 %; MCH 30.4 pg (25.0-35.0); MCHC 30.5 g/dL (31.0-37.0); MCV 99.7 fL (80.0-100.0); Macrocytosis Slight; Mean Platelet Volume 8.1; Monocytes # (A) 0.6 k/uL (0-1.0); Monocytes % (A) 4 %; Neutrophils # (A) 11.4 k/uL (1.3-7.7); Neutrophils % (A) 85 %; Platelet Count 705 k/uL (150-450); RBC 3.26 m/uL (4.30-5.90); RDW 15.4 % (11.5-15.5); WBC 13.3 k/uL (3.8-10.6)
[2024-01-24 11:29] LABS: Partial Thromboplastin Time 30.3 sec (22.0-30.0); Prothrombin Time 10.7 sec (10.0-12.5)
[2024-01-24 11:56] VITALS: RESP 18
[2024-01-24 12:07] LABS: ALT 19 U/L (4-49); AST 25 U/L (17-59); African American GFR (CKD) >90 (>60 ml/min/1.73 sqM); Albumin 3.6 g/dL (3.5-5.0); Alkaline Phosphatase 134 U/L (38-126); Anion Gap 9 mmol/L; Blood Urea Nitrogen 14 mg/dL (9-20); Calcium 9.2 mg/dL (8.4-10.2); Carbon Dioxide 23 mmol/L (22-30); Chloride 106 mmol/L (98-107); Glucose 90 mg/dL (74-99); Non-African American GFR(CKD) >90 (>60 ml/min/1.73 sqM); Potassium 4.4 mmol/L (3.5-5.1); Sodium 138 mmol/L (137-145); Total Bilirubin 0.7 mg/dL (0.2-1.3); Total Protein 6.9 g/dL (6.3-8.2)
--- NOTE | 2024-01-24 12:31 | CT ---
EXAMINATION TYPE: CT soft tissue neck w con DATE OF EXAM: 01/24/2024 COMPARISON: 12/10/2023 HISTORY: trach problems difficulty breathing CT DLP: 211.3 mGycm CONTRAST: CT scan of the neck is performed with IV Contrast, patient injected with 100ml mL of Isovue 300. Contrast enhanced CT of the neck was performed from the skull base through the lung apices. AIRWAY: Tracheostomy tube is noted to be in place. Small amount of mucous debris is seen within the trachea just distal to the tracheostomy tip. Tracheostomy lumen appears patent. Left-sided ill-defin ed laryngeal mass is redemonstrated. SALIVARY GLANDS: The submandibular and parotid glands are free of mass or inflammatory process. THYROID GLAND: No nodules or masses seen. LYMPH NODES: No adenopathy seen greater than 1cm. LUNG APICES: Severe paraseptal emphysema. OTHER: Vascular structures are patent. No significant degenerative change of the cervical spine. N o abscess seen. IMPRESSION: 1.Small amount of mucous debris is seen within the trachea just distal to the tracheostomy tip. Trach eostomy lumen appears patent. 2. Left-sided ill-defined laryngeal mass is redemonstrated.
[2024-01-24 13:30] VITALS: BP 106/60; PULSE 89
== END 2024-01-24 14:03 | disposition home or self-care (01) ==
LOC: EC 09:51
DX: J38.7 Other diseases of larynx (principal); F17.200 Nicotine dependence, unspecified, uncomplicated
CPT/HCPCS: 36415; 80053; 85025; 85610; 85730; 71045; 70491; 99285; 96372; J1170; Q9967

== ENCOUNTER → 2024-03-10 | Outpatient (CLI) | payer BC ==
--- NOTE | 2024-03-15 14:30 | CT ---
EXAMINATION TYPE: CT chest w con DATE OF EXAM: 03/10/2024 COMPARISON: HISTORY: PYOTHORAX WITHOUT FISTULA CT DLP: 315 mGycm Automated exposure control for dose reduction was used. CONTRAST: CT scan of the chest is performed with IV Contrast, patient injected with 100 mL of Isovue 300. 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 Emphysematous neville nges The lungs are grossly clear, there is no concerning parenchymal mass or nodule identified. The re is no pleural effusion or pneumothorax seen. The tracheobronchial tree is patent. MEDIASTINUM: There are no greater than 1 cm hilar or mediastinal lymph nodes. No pericardial effusi on is seen. Thoracic aorta is of normal caliber. The heart is not enlarged. UPPER ABDOMEN: No significant abnormality appreciated. OTHER: No additional significant abnormality is seen. 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 Emphysemato us changes
== END | disposition home or self-care (01) ==
LOC: RADCTMAIN 14:39
PROVIDERS: ATTEND Internal Medicine Critical Care Medicine
DX: J86.9 Pyothorax without fistula (principal); J94.0 Chylous effusion
CPT/HCPCS: 71260; Q9967

== ENCOUNTER → 2024-03-30 | Outpatient (CLI) | payer BC ==
--- NOTE | 2024-04-01 09:29 | PE ---
EXAMINATION TYPE: PET CT fusion skull to thigh DATE OF EXAM: 03/30/2024 CLINICAL INDICATION:Male, 58 years old with history of R91.1 LUNG NODULE; TECHNIQUE: Following the intravenous administration of 11.54 mCi of F-18 FDG, whole body images are performed from the skull base to the midthigh. Images are reviewed on the computer in the coronal, axial, and sagittal planes. Reconstructed rotating images are created on independent workstation and reviewed on the computer. A non-contrast CT is performed in conjunction with the PET scan. Glucose level 100 mg/dL CT DLP: 358 mGycm, Automated exposure control for dose reduction was used. COMPARISON: CT 03/02/2024, 01/24/2024 PET/CT 10/07/2023, MRI: None FINDINGS: Mediastinal SUV mean is 1.6. Hepatic parenchyma SUV mean is 1.8. SKULL BASE AND NECK: Uptake within the neck above the level of the tracheostomy cannula now extending circumferentially ar ound the larynx and possibly within the esophagus max SUV 13.5. This is increase in size and metaboli c activity. Previously max SUV 9.8. CHEST, MEDIASTINUM, AND HILAR REGION: * Uptake along the pleura on the right chest CT of the anteriorly 9.6 and posteriorly 4.8.. Some of this anteriorly may be within the pulmonary nodule which is poorly visualized due to consolidation ch anges. * Focal uptake near the aorta valve max SUV 5.3, previously 5.3. ABDOMEN AND PELVIS: No suspicious radiotracer activity. MUSCULOSKELETAL STRUCTURES: No suspicious radiotracer activity. OTHER CT: Tracheostomy cannula terminating in appropriate position. Atherosclerosis of the arterial v asculature. Paraseptal and centrilobular emphysema changes seen throughout the lungs. Bifurcation benny cifications are present. Sequela prior emphysema edema2 with foci of gas in the pleural space on the right.[address]. Right renal cyst. Scattered colonic diverticula. IMPRESSION: 1. Progression of disease with uptake just above the level of the tracheostomy cannula which is incr ease in both size and metabolic activity. 2. Uptake along the pleural on the right previous infection in this region was. There is a ball-like uptake within an area of consolidation possibly representing metastatic nodule versus focal infectio n.
== END | disposition home or self-care (01) ==
LOC: RADPETMAIN 09:55
PROVIDERS: ATTEND Internal Medicine Critical Care Medicine
DX: R94.2 Abnormal results of pulmonary function studies (principal); R91.8 Other nonspecific abnormal finding of lung field; Z93.0 Tracheostomy status
CPT/HCPCS: 78815; A9552

== ENCOUNTER 2024-05-07 17:21 | Inpatient (IN) | payer BC ==
--- NOTE | 2024-05-07 20:10 | ED ---
ENT HPI - General Chief complaint: ENT Stated complaint: Vomiting blood Time Seen by Provider: 05/07/24 17:40 Source: patient, EMS, RN notes reviewed Mode of arrival: ambulatory Limitations: no limitations, language barrier (speech impaired) - History of Present Illness Initial comments: 58-year-old male with a history laryngeal cancer following with Dr. Diaz, presents emergency department chief complaint of hemoptysis and throat pain. Patient states that over the past 2 days he has been experiencing gross hemoptysis Occurring Approximately 2-3 Times per Day. Additionally, he states that the pain in his throat has been worsening over this time as well. Currently patient is denying symptoms of chest pain, heart palpitations, dizziness, lightheadedness, shortness of breath. Patient does have a tracheostomy in place. He denies blood from the site of the tracheostomy. Patient's most recent appointment with his oncologist he was informed that the mass in his throat is growing. denies current blood thinner use or history of GI bleed or DVT/PE. - Related Data Home Medications Medication Instructions Recorded Confirmed Ibuprofen [Motrin Ib] 200 - 400 mg PEG/G-TUBE Q6H PRN 01/24/24 01/24/24 oxyCODONE HCL [oxyCODONE HCL (IR)] 10 mg PEG/G-TUBE Q6H PRN 01/24/24 01/24/24 traMADol HCL 50 mg PEG/G-TUBE QID PRN 01/24/24 01/24/24 Allergies Allergy/AdvReac Type Severity Reaction Status Date / Time No Known Allergies Allergy Verified 05/07/24 17:39 Review of Systems ROS Statement: Those systems with pertinent positive or pertinent negative responses have been documented in the HPI. ROS Other: All systems not noted in ROS Statement are negative. Past Medical History Past Medical History: Cancer, COPD, Syncope, Thyroid Disorder Additional Past Medical History / Comment(s): Graves disease, diverticulosis, esophageal cancer with radiation and chemolast 08/05 at [facility] History of Any Multi-Drug Resistant Organisms: None Reported Past Surgical History: Tonsillectomy Additional Past Surgical History / Comment(s): vasectomy, biopsy of throat, trach Past Anesthesia/Blood Transfusion Reactions: No Reported Reaction Past Psychological History: No Psychological Hx Reported Smoking Status: Current every day smoker Past Alcohol Use History: None Reported Past Drug Use History: None Reported - Past Family History Father History Unknown: Yes General Exam Limitations: no limitations General appearance: alert, in no apparent distress, cachectic Head exam: Present: atraumatic, normocephalic, normal inspection Eye exam: Present: normal appearance, PERRL, EOMI. Absent: scleral icterus, conjunctival injection, periorbital swelling Expanded Neck exam: Present: other (tracheostomy in place) Respiratory exam: Present: normal lung sounds bilaterally. Absent: respiratory distress, wheezes, rales, rhonchi, stridor Cardiovascular Exam: Present: regular rate, normal rhythm, normal heart sounds. Absent: systolic murmur, diastolic murmur, rubs, gallop, clicks GI/Abdominal exam: Present: soft, normal bowel sounds. Absent: distended, tenderness, guarding, rebound, rigid Extremities exam: Present: normal inspection, full ROM, normal capillary refill. Absent: tenderness, pedal edema, joint swelling, calf tenderness Back exam: Present: normal inspection Neurological exam: Present: alert, oriented X3, CN II-XII intact Psychiatric exam: Present: normal affect, normal mood Course Vital Signs 05/07/24 05/07/24 05/07/24 17:35 19:54 21:36 Temperature 98.8 F Pulse Rate 93 71 Respiratory 20 16 Rate Blood Pressure 97/57 96/55 O2 Sat by Pulse 96 97 Oximetry Fraction of 28 Inspired Oxygen (FIO2) 05/07/24 05/08/24 22:37 02:29 Temperature Pulse Rate 76 89 Respiratory 18 16 Rate Blood Pressure 86/55 84/55 O2 Sat by Pulse 99 97 Oximetry Fraction of Inspired Oxygen (FIO2) Medical Decision Making - Medical Decision Making Was pt. sent in by a medical professional or institution (, PA, [employer] TE[employer]STER, urgent care, hospital, or prison...) When possible be specific @ -No Did you speak to anyone other than the patient for history (EMS, parent, family, police, friend...)? What history was obtained from this source @ -No Did you review nursing and triage notes (agree or disagree)? Why? @ -I reviewed and agree with nursing and triage notes Were old charts reviewed (outside hosp., previous admission, EMS record, old EKG, old radiological studies, urgent care reports/EKG's, prison records)? Report findings @ -No old charts were reviewed Differential Diagnosis (chest pain, altered mental status, abdominal pain women, abdominal pain men, vaginal bleeding, weakness, fever, dyspnea, syncope, headache, dizziness, GI bleed, back pain, seizure, CVA, palpatations, mental h ealth, musculoskeletal)? @ -Differential Weakness: Hypoglycemia, shock, sepsis, hyponatremia, anemia, infection, SD, ETOH, adverse medicine reaction, overdose, stroke, this is not meant to be an all-inclusive list. EKG interpreted by me (3pts min.). @ -none X-rays interpreted by me (1pt min.). @ -None done CT interpreted by me (1pt min.). @ -CT chest with IV contrast atherosclerotic artery calcifications in the carotid bulbs, occlusion of the right thyroid cartilage, large amount of poorly defined soft tissue in the pharynx. No pulmonary embolism, aspiration pneumonia in the right middle lobe. CT neck with IV contrast reveals atherosclerotic artery calcifications of the bilateral carotid bulbs, erosion in the right thyroid cartilage, soft tissue/fluid mix in the posterior pharynx U/S interpreted by me (1pt. min.). @ -None done What testing was considered but not performed or refused? (CT, X-rays, U/S, labs)? Why? @ -None What meds were considered but not given or refused? Why? @ -None Did you discuss the management of the patient with other professionals (professionals i.e. , PA, [employer] TE[employer]STER, lab, RT, psych nurse, social media job titles, manager filter, teacher, education officer, family caseworker)? Give summary @ -With sound internal medicine physician, Dr. Coffey, In regard to the patient's case. Patient will be admitted for IV antibiotics with findings of right middle lobe aspiration pneumonia. Was smoking cessation discussed for >3mins.? @ -No Was critical care preformed (if so, how long)? @ -No Were there social determinants of health that impacted care today? How? (Homelessness, low income, unemployed, alcoholism, drug addiction, transportation, low edu. Level, literacy, decrease access to med. care, prison, rehab)? @ -No Was there de-escalation of care discussed even if they declined (Discuss DNR or withdrawal of care, Hospice)? DNR status @ -No What co-morbidities impacted this encounter? (DM, HTN, Smoking, COPD, CAD, Cancer, CVA, ARF, Chemo, Hep., AIDS, mental health diagnosis, sleep apnea, morbid obesity)? @ -None Was patient admitted / discharged? Hospital course, mention meds given and route, prescriptions, significant lab abnormalities, going to OR and other pertinent info. @ -Admitted. 58-year-old male with hemoptysis. On examination patient noted to have tracheostomy in place. Patient is nonverbal and communicates through writing. Patient is denying symptoms of chest pain, chest pressure, worsening shortness of breath, difficulty breathing. Patient had an episode hemoptysis from the emergency room that was bright red approximately 5 mL amount. Patient is provided with pain medication and IV fluids pending laboratory results and CT imaging. Blood pressures have been running soft in the emergency department he states that his blood pressures do remain well in the low range, patient is asymptomatic on reevaluation. CBC reveals anemia which appears chronic, CMP hypokalemia 3.0, hyperglycemia of 61. Patient provided with oral potassium supplementation and given orange juice with check of blood glucose 84. CT chest concerning for aspiration pneumonia patient will be admitted to internal medicine for IV antibiotics and further evaluation. Discussed with Dr. Pealez. Undiagnosed new problem with uncertain prognosis? @ -No Drug Therapy requiring intensive monitoring for toxicity (Heparin, Nitro, Insulin, Cardizem)? @ -No Were any procedures done? @ -No Diagnosis/symptom? @ -hemoptysis, aspiration pneumonia Acute, or Chronic, or Acute on Chronic? @ -Acute Uncomplicated (without systemic symptoms) or Complicated (systemic symptoms)? @ -complicated Side effects of treatment? @ -No Exacerbation, Progression, or Severe Exacerbation? @ -No Poses a threat to life or bodily function? How? (Chest pain, USA, SD, pneumonia, PE, COPD, DKA, ARF, appy, cholecystitis, CVA, Diverticulitis, Homicidal, Suicidal, threat to staff... and all critical care pts) @ -No - Lab Data Result diagrams: 05/07/24 21:24 05/07/24 21:24 Lab Results 05/07/24 05/07/24 05/07/24 Range/Units 21:24 21:24 21:24 WBC 7.4 (3.8-10.6) k/uL RBC 2.82 L (4.30-5.90) m/uL Hgb 8.3 L (13.0-17.5) gm/dL Hct 26.6 L (39.0-53.0) % MCV 94.4 (80.0-100.0) fL MCH 29.4 (25.0-35.0) pg MCHC 31.2 (31.0-37.0) g/dL RDW 14.5 (11.5-15.5) % Plt Count 318 (150-450) k/uL MPV 10.0 Neutrophils % 80 % Lymphocytes % 10 % Monocytes % 7 % Eosinophils % 1 % Basophils % 1 % Neutrophils # 5.9 (1.3-7.7) k/uL Lymphocytes # 0.8 L (1.0-4.8) k/uL Monocytes # 0.5 (0-1.0) k/uL Eosinophils # 0.1 (0-0.7) k/uL Basophils # 0.0 (0-0.2) k/uL Hypochromasia Slight Sodium 139 (137-145) mmol/L Potassium 3.0 L (3.5-5.1) mmol/L Chloride 110 H (98-107) mmol/L Carbon Dioxide 25 (22-30) mmol/L Anion Gap 4 mmol/L BUN 31 H (9-20) mg/dL Creatinine 0.56 L (0.66-1.25) mg/dL Est GFR (CKD-EPI)AfAm >90 (>60 ml/min/1.73 sqM) Est GFR (CKD-EPI)NonAf >90 (>60 ml/min/1.73 sqM) Glucose 61 L (74-99) mg/dL POC Glucose (mg/dL) (70-110) mg/dL POC Glu Onyx Chip Terrazzo Worker ID Plasma Lactic Acid Ricco <0.5 L (0.7-2.0) mmol/L Calcium 6.6 L (8.4-10.2) mg/dL Total Bilirubin 0.1 L (0.2-1.3) mg/dL AST 19 (17-59) U/L ALT 21 (4-49) U/L Alkaline Phosphatase 58 (38-126) U/L Total Protein 4.6 L (6.3-8.2) g/dL Albumin 2.4 L (3.5-5.0) g/dL 05/07/24 Range/Units 23:49 WBC (3.8-10.6) k/uL RBC (4.30-5.90) m/uL Hgb (13.0-17.5) gm/dL Hct (39.0-53.0) % MCV (80.0-100.0) fL MCH (25.0-35.0) pg MCHC (31.0-37.0) g/dL RDW (11.5-15.5) % Plt Count (150-450) k/uL MPV Neutrophils % % Lymphocytes % % Monocytes % % Eosinophils % % Basophils % % Neutrophils # (1.3-7.7) k/uL Lymphocytes # (1.0-4.8) k/uL Monocytes # (0-1.0) k/uL Eosinophils # (0-0.7) k/uL Basophils # (0-0.2) k/uL Hypochromasia Sodium (137-145) mmol/L Potassium (3.5-5.1) mmol/L Chloride (98-107) mmol/L Carbon Dioxide (22-30) mmol/L Anion Gap mmol/L BUN (9-20) mg/dL Creatinine (0.66-1.25) mg/dL Est GFR (CKD-EPI)AfAm (>60 ml/min/1.73 sqM) Est GFR (CKD-EPI)NonAf (>60 ml/min/1.73 sqM) Glucose (74-99) mg/dL POC Glucose (mg/dL) 84 (70-110) mg/dL POC Glu Onyx Chip Terrazzo Worker ID Goran Hancock Plasma Lactic Acid Ricco (0.7-2.0) mmol/L Calcium (8.4-10.2) mg/dL Total Bilirubin (0.2-1.3) mg/dL AST (17-59) U/L ALT (4-49) U/L Alkaline Phosphatase (38-126) U/L Total Protein (6.3-8.2) g/dL Albumin (3.5-5.0) g/dL Disposition Clinical Impression: Hemoptysis, Aspiration pneumonia Disposition: ADMITTED IP TO THIS [facility] Condition: Good Decision to Admit Reason: Admit from EC Decision Date: 05/08/24 Decision Time: 02:09
[2024-05-07] MEDS: SODIUM CHLORIDE 0.9% 1,000 ML IV STA (21:01)
[2024-05-07] MEDS: HYDROmorphone 1 MG/ML 1 ML SYRINGE IVP STA ×2 (21:02→21:38)
[2024-05-07 22:20] LABS: ALT 21 U/L (4-49); AST 19 U/L (17-59); African American GFR (CKD) >90 (>60 ml/min/1.73 sqM); Albumin 2.4 g/dL (3.5-5.0); Alkaline Phosphatase 58 U/L (38-126); Anion Gap 4 mmol/L; Blood Urea Nitrogen 31 mg/dL (9-20); Calcium 6.6 mg/dL (8.4-10.2); Carbon Dioxide 25 mmol/L (22-30); Chloride 110 mmol/L (98-107); Glucose 61 mg/dL (74-99); Non-African American GFR(CKD) >90 (>60 ml/min/1.73 sqM); Sodium 139 mmol/L (137-145); Total Bilirubin 0.1 mg/dL (0.2-1.3); Total Protein 4.6 g/dL (6.3-8.2)
[2024-05-07 23:50] LABS: Glucose,Whole Blood 84 mg/dL (70-110)
[2024-05-08 00:32] LABS: Basophils % (A) 1 %; Eosinophils # (A) 0.1 k/uL (0-0.7); Eosinophils % (A) 1 %; HCT 26.6 % (39.0-53.0); HGB 8.3 gm/dL (13.0-17.5); Hypochromasia Slight; Lymphocytes # (A) 0.8 k/uL (1.0-4.8); Lymphocytes % (A) 10 %; MCH 29.4 pg (25.0-35.0); MCHC 31.2 g/dL (31.0-37.0); MCV 94.4 fL (80.0-100.0); Monocytes # (A) 0.5 k/uL (0-1.0); Monocytes % (A) 7 %; Neutrophils # (A) 5.9 k/uL (1.3-7.7); Neutrophils % (A) 80 %; Platelet Count 318 k/uL (150-450); RBC 2.82 m/uL (4.30-5.90); RDW 14.5 % (11.5-15.5); WBC 7.4 k/uL (3.8-10.6)
[2024-05-08] MEDS: POTASSIUM CHLORIDE ER 20 MEQ TAB.ER PO STA (02:00)
[2024-05-08] MEDS ORDERED: NALOXONE 0.4 MG/ML 1 ML VIAL IV PRN (02:07)
[2024-05-08] MEDS: PIPERACILLIN-TAZOBACTAM 3.375 GM in SODIUM CHLORIDE 0.9% 100 ML IVPB STA (04:38)
--- NOTE | 2024-05-08 04:42 | P.HPIM ---
History of Present Illness H&P Date: 05/08/24 Patient is a 58-year-old male with a PMH of laryngeal carcinoma (diagnosed in July 2023, status post tracheostomy and PEG tube placement, follows with Dr. Moreira, status postchemotherapy and radiation, not currently on any treatment at this time), hypothyroidism, COPD, and history of Graves' disease who presents to the emergency room with complaints of hemoptysis. The patient reports that his symptoms started roughly 2 days ago with gross bloody phlegm upon coughing. He denies any prior history of such symptoms. Also reports gradually worsening throat pain which has now worsened to a 9 out of 10, constant, over the past 1 week. He denies experiencing fever, chills, chest pain, shortness of breath, nausea, vomiting, diaphoresis, or dizziness. The patient does report that he has lost a significant amount of weight over the past several months. In the emergency room, a Neck CT w/ contrast revealed findings consistent with known malignancy with suspected local infiltration of the surrounding tissues along with a possible abscess and AV malformation. Chest CT also revealed findi ngs concerning for an aspiration pneumonia. Laboratory evaluation revealed hemoglobin of 8.3 (at baseline), potassium 3.0, BUN 31, creatinine 0.56, lactic acid less than 0.5, calcium 6.6, and albumin 2.4. ED documentation reviewed and case discussed with ED provider. Review of systems: Pertinent positives and negatives as discussed in HPI, a complete review of systems was performed and all other systems are negative. Physical examination: Vital signs reviewed General: non toxic, no distress, appears at stated age, cachectic Derm: no unusual rashes/lesions, warm Head: atraumatic, normocephalic, symmetric Eyes: EOMI, no lid lag, anicteric sclera, pupils equal round reactive to light ENT: Nose and ears atraumatic Neck: No cervical lymphadenopathy, trachea midline, supple, tracheostomy in place Mouth: no lip lesion, mucus membranes moist Cardiovascular: S1S2 reg, no murmur, positive dorsalis pedis pulse bilateral, no edema Lungs: CTA bilateral, no rhonchi, no rales, no accessory muscle use Abdominal: soft, nontender to palpation, no guarding Ext: muscle strength 5 out of 5 in all 4 extremities grossly, no gross muscle atrophy, no contractures, Neuro: CN II-XI grossly intact, no gross focal neuro deficits Psych: Alert, oriented, appropriate affect Assessment: Hemoptysis in setting of laryngeal carcinoma with local invasion and possible abscess Aspiration pneumonia Hypokalemia Chronic conditions: Hypothyroidism, COPD Imaging: In the emergency room, a Neck CT w/ contrast revealed findings consistent with known malignancy with suspected local infiltration of the surrounding tissues along with a possible abscess and AV malformation. Chest CT also revealed findings concerning for an aspiration pneumonia. Data Review: Laboratory evaluation revealed hemoglobin of 8.3 (at baseline), potassium 3.0, BUN 31, creatinine 0.56, lactic acid less than 0.5, calcium 6.6, and albumin 2.4. Plan: Oncology consulted Continue patient on Unasyn Continue IV fluids with normal saline 100 cc/h Replace potassium and monitor Resume home medications once reconciled DVT prophylaxis: Lovenox The patient is admitted with an anticipated less than 2 midnight stay for evaluation of hemoptysis CODE STATUS: Full Code Discussed with: Patient Anticipated discharge place: Home Past Medical History Past Medical History: Cancer, COPD, Syncope, Thyroid Disorder Additional Past Medical History / Comment(s): Graves disease, diverticulosis, esophageal cancer with radiation and chemolast 08/05 at [facility] History of Any Multi-Drug Resistant Organisms: None Reported Past Surgical History: Tonsillectomy Additional Past Surgical History / Comment(s): vasectomy, biopsy of throat, trach Past Anesthesia/Blood Transfusion Reactions: No Reported Reaction Past Psychological History: No Psychological Hx Reported Smoking Status: Current every day smoker Past Alcohol Use History: None Reported Past Drug Use History: None Reported - Past Family History Father History Unknown: Yes Family Medical History: Diabetes Mellitus Medications and Allergies Home Medications Medication Instructions Recorded Confirmed Type Ibuprofen [Motrin Ib] 200 - 400 mg PEG/G-TUBE Q6H PRN 01/24/24 01/24/24 History oxyCODONE HCL [oxyCODONE HCL (IR)] 10 mg PEG/G-TUBE Q6H PRN 01/24/24 01/24/24 History traMADol HCL 50 mg PEG/G-TUBE QID PRN 01/24/24 01/24/24 History Allergies Allergy/AdvReac Type Severity Reaction Status Date / Time No Known Allergies Allergy Verified 05/07/24 17:39 Physical Exam Vitals: Vital Signs Temp Pulse Resp BP Pulse Ox FiO2 05/08/24 03:25 86 16 108/57 97 08/26/24 02:29 89 16 84/55 97 05/07/24 22:37 76 18 86/55 99 05/07/24 21:36 71 16 96/55 97 05/07/24 19:54 28 05/07/24 17:35 98.8 F 93 20 97/57 96 Intake and Output 05/07/24 05/07/24 05/08/24 14:59 22:59 06:59 Other: Weight 54.431 kg Results CBC & Chem 7: 05/07/24 21:24 05/07/24 21:24 Labs: Abnormal Lab Results - Last 24 Hours (Table) 05/07/24 05/07/24 05/07/24 Range/Units 21:24 21:24 21:24 RBC 2.82 L (4.30-5.90) m/uL Hgb 8.3 L (13.0-17.5) gm/dL Hct 26.6 L (39.0-53.0) % Lymphocytes # 0.8 L (1.0-4.8) k/uL Potassium 3.0 L (3.5-5.1) mmol/L Chloride 110 H (98-107) mmol/L BUN 31 H (9-20) mg/dL Creatinine 0.56 L (0.66-1.25) mg/dL Glucose 61 L (74-99) mg/dL Plasma Lactic Acid Ricco <0.5 L (0.7-2.0) mmol/L Calcium 6.6 L (8.4-10.2) mg/dL Total Bilirubin 0.1 L (0.2-1.3) mg/dL Total Protein 4.6 L (6.3-8.2) g/dL Albumin 2.4 L (3.5-5.0) g/dL
[2024-05-08] MEDS: HYDROmorphone 1 MG/ML 1 ML SYRINGE IVP STA (05:25)
[2024-05-08] MEDS: LEVOFLOXACIN 750MG-D5W PMX 750 MG in DEXTROSE/WATER 1 150ML.BAG IVPB ONE (05:36)
[2024-05-08] MEDS ORDERED: PIPERACILLIN-TAZOBACTAM 3.375 GM in SODIUM CHLORIDE 0.9% 100 ML IVPB SCH (08:00)
[2024-05-08] MEDS: HYDROmorphone 0.5 MG/0.5 ML SYRINGE IVP PRN (08:32)
[2024-05-08] MEDS: AMPICILLIN-SULBACTAM 3 GM in SODIUM CHLORIDE 0.9% 100 ML IVPB SCH (09:22)
[2024-05-08] MEDS: HYDROmorphone 1 MG/ML 1 ML SYRINGE ONE (11:55)
[2024-05-08] MEDS: SODIUM CHLORIDE 0.9% 1,000 ML IV STA (11:56)
[2024-05-08] MEDS: MORPHINE SULFATE 4 MG/ML SYRINGE IVP STA (12:05)
--- NOTE | 2024-05-08 13:17 | P.CNPUL ---
History of Present Illness Consult date: 05/08/24 Requesting physician: Deyanira Coffey Reason for consult: cough Chief complaint: Throat pain History of present illness: This is a pleasant 58-year-old male patient with a known history of laryngeal cancer with previous chemoradiation, tracheostomy tube placement, PEG tube placement, chronic tobacco dependence, hypothyroidism, Graves' disease, diverticulosis. A recent PET scan from March 30, 2024 revealed progression of disease with uptake just above the level of the tracheostomy cannula which is increased in both size and metabolic activity. Uptake along the pleural on the right previous infection in this region. There is a ball-like uptake within an area of consolidation possibly representing metastatic nodule versus local infection. He came to the emergency room yesterday after he started coughing up some blood. This was not coming from his trachea. His trachea and tracheal tube is clean. CT angiogram and a CT angiogram of his neck are pending. White count 7.4. Hemoglobin 8.3. Platelets 318. Sodium 139. Potassium 3.0. Bicarb 25. BUN 31. Creatinine 0.56. Glucose 84. He is seen today in consultation on the regular medical floor. He is currently sitting up in bed. Awake, alert no acute distress. He is spitting up some blood-tinged saliva. Good O2 saturations in the 90s on 28% FiO2 via trach collar. He is afebrile. Review of Systems REVIEW OF SYSTEMS: CONSTITUTIONAL: Denies any recent significant weight loss or weight gain. EYES: Denies change in vision. EARS, NOSE, MOUTH, THROAT: Positive for throat pain, blood-tinged sputum. CARDIOVASCULAR: Denies chest pain, palpitations or syncopal episodes. RESPIRATORY: Denies shortness of breath, cough, congestion or hemoptysis. GASTROINTESTINAL: Denies change in appetite, denies abdominal pain GENITOURINARY: Denies hematuria, denies infections. MUSKULOSKELETAL: Denies pain, denies swelling. INTEGUMENTARY: Denies rash, denies eczema. NEUROLOGICAL: Denies recent memory loss, no recent seizure activity. PSYCHIATRIC: Denies anxiety, denies depression. HEMATOLOGIC/LYMPHATIC: Denies anemia, denies enlarged lymph nodes. Past Medical History Past Medical History: Cancer, COPD, Syncope, Thyroid Disorder Additional Past Medical History / Comment(s): Graves disease, diverticulosis, esophageal cancer with radiation and chemo, last 08/05 at [facility] History of Any Multi-Drug Resistant Organisms: None Reported Past Surgical History: Tonsillectomy Additional Past Surgical History / Comment(s): vasectomy, biopsy of throat, trach, PEG tube Past Anesthesia/Blood Transfusion Reactions: No Reported Reaction Past Psychological History: No Psychological Hx Reported Smoking Status: Current every day smoker Past Alcohol Use History: None Reported Past Drug Use History: None Reported - Past Family History Father History Unknown: Yes Family Medical History: Diabetes Mellitus Medications and Allergies Home Medications Medication Instructions Recorded Confirmed Type HYDROcodone/APAP 7.5-325MG [[place] 1 tab PO TID 05/08/24 05/08/24 History 7.5-325] Ibuprofen [Motrin] 600 mg PO BID 05/08/24 05/08/24 History Allergies Allergy/AdvReac Type Severity Reaction Status Date / Time No Known Allergies Allergy Verified 05/08/24 10:02 Physical Exam Vitals: Vital Signs Temp Pulse Pulse Resp BP BP Pulse Ox 05/08/24 08:01 97 05/08/24 07:38 98.4 F 79 16 94/55 96 05/08/24 06:54 18 05/08/24 04:55 99.1 F 96 14 93/54 94 L 05/08/24 04:43 98.8 F 81 18 94/63 97 05/08/24 03:25 86 16 108/57 97 05/08/24 02:29 89 16 84/55 97 05/07/24 22:37 76 18 86/55 99 05/07/24 21:36 71 16 96/55 97 05/07/24 19:54 05/07/24 17:35 98.8 F 93 20 97/57 96 FiO2 05/08/24 08:01 28 05/08/24 07:38 05/08/24 06:54 05/08/24 04:55 05/08/24 04:43 05/08/24 03:25 05/08/24 02:29 05/07/24 22:37 05/07/24 21:36 05/07/24 19:54 28 05/07/24 17:35 Intake and Output 05/07/24 05/08/24 05/08/24 22:59 06:59 14:59 Other: # Voids 1 Weight 54.431 kg 54.431 kg GENERAL EXAM: Alert, pleasant, thin 58-year-old male, fairly comfortable in no apparent distress. HEAD: Normocephalic. EYES: Normal reaction of pupils, equal size. NOSE: Clear with pink turbinates. THROAT: No erythema or exudates. NECK: Tracheostomy tube secured in place. CHEST: No chest wall deformity. LUNGS: Equal air entry with no crackles, wheeze, rhonchi or dullness. CVS: S1 and S2 normal with no audible murmur, regular rhythm. ABDOMEN: PEG tube exit site clean and dry. No hepatosplenomegaly, normal bowel sounds, no guarding or rigidity. SPINE: No scoliosis or deformity SKIN: No rashes CENTRAL NERVOUS SYSTEM: No focal deficits, tone is normal in all 4 extremities. EXTREMITIES: There is no peripheral edema. No clubbing, no cyanosis. Peripheral pulses are intact. Results - Laboratory Findings CBC and BMP: 05/07/24 21:24 08 21:24 Abnormal lab findings: Abnormal Labs 05/07/24 05/07/24 05/07/24 21:24 21:24 21:24 RBC 2.82 L Hgb 8.3 L Hct 26.6 L Lymphocytes # 0.8 L Potassium 3.0 L Chloride 110 H BUN 31 H Creatinine 0.56 L Glucose 61 L Plasma Lactic Acid Ricco <0.5 L Calcium 6.6 L Total Bilirubin 0.1 L Total Protein 4.6 L Albumin 2.4 L Assessment and Plan Assessment: Blood-tinged saliva, suspect coming from the back of his throat. Tracheostomy site and inner cannula are clear and no blood noted. CT angiogram of the neck and chest are pending History of laryngeal cancer with previous chemoradiation. Tracheostomy and PEG tubes placed. PET scan from March 2024 showing progression History of large right-sided hydropneumothorax with previous chest tube insertion and subsequent removal in December 2023 Masslike consolidation in the right midlung dating back to November 2023 Chronic and ongoing tobacco dependence Hypothyroidism Chronic obstructive pulmonary disease And: The patient was seen and evaluated Labs and medications reviewed CT angiogram of the neck and chest are pending Plan: The patient was seen and evaluated Labs and medications reviewed Titrate the FiO2 as tolerated Continue to observe for bleeding Tracheostomy and inner cannula are clean Will continue to follow and make further recommendations based on his clinical status I have personally seen and examined the patient, performed the documentation and the assessment and plan as written. Number of minutes spent on the visit: 20.
[2024-05-08] MEDS: MORPHINE SULFATE 4 MG/ML SYRINGE IVP PRN (16:02)
--- NOTE | 2024-05-08 18:48 | P.CONS ---
History of Present Illness - Reason for Consult Consult date: 05/08/24 laryngeal carcinoma Requesting physician: Deyanira Coffey - Chief Complaint hemoptysis - History of Present Illness Mr Alva is a male pt of Dr. Moreira who initially presented to his PCP, with sore throat and hoarseness, symptoms present for about 3-4 years, but had become much more prominent and progressive in early 2022. CT neck 03/09/23 showed a 2.3 cm supraglottic mass on the right, with a right neck node measuring 3.1 cm at level III. PET scan 03/25/23 showed uptake in the primary lesion, as well as uptake in a level IIA and a level III node on the right. ENT evaluated and recommended biopsy. The patient did not return to ENT initially as he did not think he needed a biopsy to start treatment. He was seen by Radiation Oncology initially on 04/13/23 and was referred back to ENT. 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 Malignancy was present on biopsy from the right supraglottis and the right hypopharynx. Tumor was p16 negative. The patient was then referred to Hem Onc for treatment recommendations for concurrent chemoradiation. He had a long-standing history of smoking about 1.5 packs a day for 30+ years. Since 03/05, he has cut down to about half pack a day. He drinks about 3 beers and one drink of hard liquor daily. Started chemoradiation with weekly cisplatin. After the first chemotherapy treatment on 05/13/23, he was admitted to the hospital because of progressive difficulty in breathing. He had to have a tracheostomy placed, and also had a PEG tube placed because he subsequently failed a swallow test. He resumed radiation on 06/01/23, completed 6 wkly Cisplatin cycles on 07/05/23, and subsequently radiation in the first week of 08/05. He had a complicated medical course starting Sep 2023. Treatment f/u PET 10/06 had shown some uptake in the area of the right vocal cord, as well as in an opacity in the right lung base. The patient was referred to pulmonary medicine, who discussed a bronchoscopy. He was reluctant for the same and ultimately decided to repeat a CT scan to follow-up the lung nodule in 3 months. He did see ENT Oncology and had a biopsy of the right vocal cord area, showing recurrent malignancy. He was admitted late 12/04 with a right lung pneumonia. Imaging at this time showed a heterogenous mass with cystic and necrotic component with bronchoscopy done on 12/09/23 being negative for malignancy. the patient appeared to have a necrotizing pneumonia, with underlying malignancy not ruled out. As he was not responding well to aggressive treatment for pneumonia but, elected to go on hospice. He developed hemoptysis at home, and came back to the hospital, changing his CODE STATUS to full code. Follow-up CT now showed large right-sided hydropneumothorax and the consolidative changes in the right midlung with additional areas of cavitation in the previously noted consolidation in the right lung base. He had a right-sided chest tube placed with drainage of fluid, that came back negative for malignancy. He was admitted to the hospital, and treated aggressively for pneumonia, as his sputum cultures had been positive for Klebsiella and Burkholderia. He had gradual improvement. He had replacement and removal of catheters in the right chest cavity. He was then seen at [facility] and had a VATS with Dr. Herrmann showing no evidence of malignancy, or significant residual fluid/infection. The patient continued to improve in terms of some increase in then stabilization of weight. He had follow-up CT scan on 03/10/24. This showed decreasing size of the right pleural empyema with [id number] emphysematous changes. There was no evidence of any malignant-appearing lung nodules or adenopathy. The case was discussed with Pulmonary medicine at this point. They felt that the right lower lung findings most likely represented infection, and not malignancy. Therefore a PET scan was ordered and the patient referred back here. The PET scan on 03/30/24 showed uptake along the right-sided pleura anteriorly and posteriorly and some focal uptake near the aortic valve. The uptake in the neck above the tracheostomy was more prominent, and larger, extending circumferentially around the larynx and possibly within the esophagus. He was seen about 4 weeks ago in [facility]. Results of the PET scan were discussed. He was advised that if the findings and the right lung represent sequelae of infection, then at this time he appears to have possibly localize recurrence in the laryngeal area. In that situation he could potentially be a candidate for definitive treatment involving radical surgery, and possibly additional modalities for cytoreduction/adjuvant treatment as appropriate. If the area of recurrences outside his prior radiation field, additional radiation may also be a possibility. It was confirmed with the patient, that he would be in agreement with aggressive treatment including radical surgery, if there was a potential for a curative approach. Would also be in agreement with palliative chemotherapy/immunotherapy if he was not a candidate for the same. He was due to see Rad Onc and I believe ENT Onc. Pt admitted for hemoptysis, x 2 days, rather copious, coming from the mouth, not trach, pt feels that it is coming from the throat and not the lung. Anterior neck pain, mod/severe. No current fevers, significant SOB, acute changes in bowel or bladder, he is still ambulatory. CT neck local malig infiltration, possible abscess. No PE. Hgb 8.3-close to pt baseline. Review of Systems 10 point ROS is neg except as stated in HPI Past Medical History Past Medical History: Cancer, COPD, Syncope, Thyroid Disorder Additional Past Medical History / Comment(s): Graves disease, diverticulosis, esophageal cancer with radiation and chemo, last 08/05 at [facility] History of Any Multi-Drug Resistant Organisms: None Reported Past Surgical History: Tonsillectomy Additional Past Surgical History / Comment(s): vasectomy, biopsy of throat, trach, PEG tube Past Anesthesia/Blood Transfusion Reactions: No Reported Reaction Past Psychological History: No Psychological Hx Reported Smoking Status: Current every day smoker Past Alcohol Use History: None Reported Past Drug Use History: None Reported - Past Family History Father History Unknown: Yes Family Medical History: Diabetes Mellitus Medications and Allergies Home Medications Medication Instructions Recorded Confirmed Type HYDROcodone/APAP 7.5-325MG [[place] 1 tab PO TID 05/08/24 05/08/24 History 7.5-325] Ibuprofen [Motrin] 600 mg PO BID 05/08/24 05/08/24 History Allergies Allergy/AdvReac Type Severity Reaction Status Date / Time No Known Allergies Allergy Verified 05/08/24 10:02 Physical Exam Vitals: Vital Signs Temp Pulse Pulse Resp BP BP Pulse Ox 05/08/24 08:01 97 05/08/24 07:38 98.4 F 79 16 94/55 96 05/08/24 06:54 18 05/08/24 04:55 99.1 F 96 14 93/54 94 L 05/08/24 04:43 98.8 F 81 18 94/63 97 05/08/24 03:25 86 16 108/57 97 05/08/24 02:29 89 16 84/55 97 05/07/24 22:37 76 18 86/55 99 05/07/24 21:36 71 16 96/55 97 05/07/24 19:54 05/07/24 17:35 98.8 F 93 20 97/57 96 FiO2 05/08/24 08:01 28 05/08/24 07:38 05/08/24 06:54 05/08/24 04:55 05/08/24 04:43 05/08/24 03:25 05/08/24 02:29 05/07/24 22:37 05/07/24 21:36 05/07/24 19:54 28 05/07/24 17:35 Intake and Output 05/07/24 05/08/24 05/08/24 22:59 06:59 14:59 Other: # Voids 1 Weight 54.431 kg 54.431 kg - Constitutional General appearance: cooperative, mild distress, thin - EENT significant hemoptysis, bright red blood, mod/copious amounts mixed with clear thick sputum, foul odor, trach in-situ, pain to palpation anterior portion of the neck Eyes: anicteric sclerae, EOMI - Neck Neck: lymphadenopathy - Respiratory Respiratory: bilateral: CTA - Cardiovascular Rhythm: regular Heart sounds: normal: S1, S2 Abnormal Heart Sounds: no systolic murmur, no diastolic murmur, no rub, no S3 Gallop, no S4 Gallop, no click, no other leg Peripheral Edema: bilateral: None - Gastrointestinal General gastrointestinal: no absent bowel sounds, no decreased bowel sounds, no distended, no hepatomegaly, no hyperactive bowel sounds, normal bowel sounds, no organomegaly, no rigid, no scaphoid, soft, no splenomegaly, no tenderness, no umbilical hernia, no ventral hernia - Integumentary Integumentary: normal - Neurologic Neurologic: CNII-XII intact - Musculoskeletal Musculoskeletal: strength equal bilaterally - Psychiatric Psychiatric: A&O x's 3, appropriate affect, intact judgment & insight Results CBC & Chem 7: 05/07/24 21:24 05/07/24 21:24 Labs: Abnormal Lab Results - Last 24 Hours (Table) 05/07/24 05/07/24 05/07/24 Range/Units 21:24 21:24 21:24 RBC 2.82 L (4.30-5.90) m/uL Hgb 8.3 L (13.0-17.5) gm/dL Hct 26.6 L (39.0-53.0) % Lymphocytes # 0.8 L (1.0-4.8) k/uL Potassium 3.0 L (3.5-5.1) mmol/L Chloride 110 H (98-107) mmol/L BUN 31 H (9-20) mg/dL Creatinine 0.56 L (0.66-1.25) mg/dL Glucose 61 L (74-99) mg/dL Plasma Lactic Acid Ricco <0.5 L (0.7-2.0) mmol/L Calcium 6.6 L (8.4-10.2) mg/dL Total Bilirubin 0.1 L (0.2-1.3) mg/dL Total Protein 4.6 L (6.3-8.2) g/dL Albumin 2.4 L (3.5-5.0) g/dL Comments: CT neck report reviewed CT scan - chest: report reviewed Assessment and Plan (1) Hemoptysis Current Visit: Yes Status: Acute Priority: High Code(s): R04.2 - HEMOPTYSIS SNOMED Code(s): 57971557 (2) Squamous cell carcinoma of head and neck Current Visit: Yes Status: Acute Priority: High Code(s): C44.42 - SQUAMOUS CELL CARCINOMA OF SKIN OF SCALP AND NECK SNOMED Code(s): 558636786 Plan: Hemoptysis -Concern for erosion of tumor into blood vessel or a fistula as a cause for per sistent hemoptysis -Case discussed with Rad Onc who in turn spoke to ENT Onc, Dr. Morales (this was late in the day). They discussed imaging findings. [place] that pt could need surgical intervention to stop bleeding. Case discssed with Attending. Plan for transfer to [facility] tomorrow if bleeding persists -CBC in AM -No anticoagulation, asa, NSAIDs, SCDs for DVT prophylaxis Recurrent Head/Neck sq cell carcinoma -recent biopsy proven recurrence of squamous cell head/neck malig -Was to be seen by Rad Onc for treatment option, he wasn't seen yet. Consult Rad Onc -Concerns about lung infiltrate-malignant vs abscess-pt had a VAT, no malignant cells, more consistent with infection. Consult Pulmonary to review case. -If it is felt that hemoptysis is from neck/throat. If Rad Onc dose not feel that radiation can palliate the symptoms, recommend that pt be transferred to ENT Onc Dr. Morales. -Will follow with pt and review case with Consulted MDs once they have had an opportunity to see pt. Pain meds adjusted per pt request attests: I have seen and examined pt, performed H&P, developed impression and plan of care. Discussed with dictator. Agree with documentation, dictated as a scribe.
[2024-05-08] MEDS ORDERED: WATER IVPB SCH (21:00)
[2024-05-08] MEDS ORDERED: LEVOFLOXACIN IVPB SCH (21:00)
[2024-05-08] MEDS ORDERED: DEXTROSE IVPB SCH (21:00)
[2024-05-08] MEDS ORDERED: PMX IVPB SCH (21:00)
[2024-05-09 09:29] LABS: Basophils # (A) 0.08 X 10*3/uL (0.00-0.10); Basophils % (A) 0.9 %; Eosinophils # (A) 0.14 X 10*3/uL (0.04-0.35); Eosinophils % (A) 1.6 %; HCT 33.6 % (39.6-50.0); Lymphocytes # (A) 0.94 X 10*3/uL (0.90-5.00); Lymphocytes % (A) 10.7 %; MCH 28.4 pg (27.0-32.0); MCHC 29.8 g/dL (32.0-37.0); MCV 95.5 FL (80.0-97.0); Mean Platelet Volume 10.2 FL (9.5-12.2); Monocytes # (A) 0.84 X 10*3/uL (0.20-1.00); Monocytes % (A) 9.6 %; NRBC Per 100 WBC 0 X 10*3/uL (0.00-0.01); Neutrophils # (A) 6.69 X 10*3/uL (1.80-7.70); Neutrophils % (A) 76.4 %; Platelet Count 391 X 10*3/uL (140-440); RBC 3.52 X 10*6/uL (4.40-5.60); RDW 14.7 % (11.5-14.5); WBC 8.76 X 10*3/uL (4.50-10.00)
--- NOTE | 2024-05-09 09:29 | P.CONS ---
History of Present Illness - Reason for Consult Consult date: 05/09/24 spitting up blood Requesting physician: Ck Moreira - Chief Complaint spitting up blood - History of Present Illness Mr. 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 He started a course of chemor adiation and had finished 10 Gy of planned 70 Gy when he became unresponsive after treatment and required emergent intubation with eventually tracheostomy placement. He then completed his course of definitive chemoradiation to a total of 74 Gy with cisplatin (with extra 4 Gy prescribed due to treatment delays) in 07/2023. He unfortunately was found to have persistent/recurrent disease on biopsy from 12/10/23 within the larynx. He had a significant right lung infection, which has delayed possibly getting additional therapy. The patient presented to the emergency room on May 07. He had noted approximately 2-3 days of coughing up bright red blood. He has noticed some dark, small clots admixed. He believes the bleeding is coming from his throat, as he does not need to cough to bring it up. He can often just spit it out. Additionally, the patient has had a marked increase in pain in the throat. He is reporting 9 out of 10 pain currently. He has not been seen recently by Dr. Morales. Hemoglobin is 8.3, but has not been re-checked since 05/07. Review of Systems Constitutional: Denies chills, Denies fever Ears, nose, mouth and throat: Reports as per HPI Cardiovascular: Denies chest pain Respiratory: Denies cough Gastrointestinal: Denies abdominal pain Integumentary: Denies rash Neurological: Denies aphasia, Denies ataxia Past Medical History Past Medical History: Cancer, COPD, Syncope, Thyroid Disorder Additional Past Medical History / Comment(s): Graves disease, diverticulosis, esophageal cancer with radiation and chemo, last 08/05 at [facility] History of Any Multi-Drug Resistant Organisms: None Reported Past Surgical History: Tonsillectomy Additional Past Surgical History / Comment(s): vasectomy, biopsy of throat, trach, PEG tube Past Anesthesia/Blood Transfusion Reactions: No Reported Reaction Past Psychological History: No Psychological Hx Reported Smoking Status: Current every day smoker Past Alcohol Use History: None Reported Past Drug Use History: None Reported - Past Family History Father History Unknown: Yes Family Medical History: Diabetes Mellitus Medications and Allergies Home Medications Medication Instructions Recorded Confirmed Type HYDROcodone/APAP 7.5-325MG [[place] 1 tab PO TID 05/08/24 05/08/24 History 7.5-325] Ibuprofen [Motrin] 600 mg PO BID 05/08/24 05/08/24 History Allergies Allergy/AdvReac Type Severity Reaction Status Date / Time No Known Allergies Allergy Verified 05/08/24 10:02 Physical Exam Vitals: Vital Signs Temp Pulse Resp BP Pulse Ox FiO2 05/09/24 07:59 96 28 05/09/24 07:03 98.2 F 80 15 93/56 91 L 05/09/24 02:00 98.4 F 74 14 83/50 95 05/08/24 20:00 99.9 F H 94 15 91/57 97 05/08/24 13:07 99.1 F 77 17 91/55 94 L Intake and Output 05/08/24 05/09/24 05/09/24 22:59 06:59 14:59 Other: # Voids 2 Weight 55.5 kg - Constitutional General appearance: no acute distress - EENT Eyes: EOMI, PERRLA ENT: hearing grossly normal, other (No lesions seen in oral cavity, but bright red blood noted. ) - Neck Neck: lymphadenopathy (Left neck unremarkable, some firmness along right neck noted. ) - Respiratory Respiratory: right: diminished, left: CTA - Cardiovascular Rhythm: regular - Gastrointestinal General gastrointestinal: no distended, no tenderness - Integumentary Integumentary: pale - Neurologic Neurologic: CNII-XII intact - Musculoskeletal Musculoskeletal: generalized weakness - Psychiatric Psychiatric: A&O x's 3, appropriate affect, intact judgment & insight Results CBC & Chem 7: 05/07/24 21:24 05/07/24 21:24 CT scan - chest: image reviewed Assessment and Plan Assessment: Mr. Alva is a 58-year-old with a stage POPEYE (cT2, cN2b, cM0) [id number] squamous cell carcinoma of the supraglottis. He started a course of chemoradiation and had finished 10 Gy of planned 70 Gy when he became unresponsive after treatment and required emergent intubation with eventually tracheostomy placement. He then completed his course of definitive chemoradiation to a total of 74 Gy with cisplatin (with extra 4 Gy prescribed due to treatment delays) in 07/2023. He unfortunately was found to have persistent/recurrent disease on biopsy from 12/10/23 within the larynx. He had a significant right lung infection, which has delayed possibly getting additional therapy. He presents secondary to bleeding - likely from tumor site in supraglottic larynx. Plan: 1. Bleeding lesion in larynx: Persistent bleeding for past 2-3 days. Airway is stable secondary to trach in place. Trend hemoglobin. We will obtain reports from CTA of neck and chest. I discussed the case with his surgeon (Dr. Morales). He is recommending transfer (possible [facility] or [facility] if not possible for [place]). Possible neuro-interventional to help stop bleeding and evaluate patient for eventual salvage laryngectomy. Will hold off on palliative RT for now. 2. Right lung abnormality: This area appears improved from the past few months; less suspicious for malignancy and more consistent with resolving infection. From his March PET-CT, patient has no distant disease. Time with Patient: Greater than 30
[2024-05-09] MEDS ORDERED: polyethylene glycoL 3350 17 GM POWD.PACK PO PRN (10:43)
[2024-05-09] MEDS: SENNOSIDES-DOCUSATE SODIUM 1 EACH TAB PO SCH (11:25)
[2024-05-09] MEDS: HYDROmorphone 1 MG/ML 1 ML SYRINGE IVP STA (11:26)
--- NOTE | 2024-05-09 11:31 | P.PN ---
Subjective Progress Note Date: 05/09/24 This is a pleasant 58-year-old male patient with a known history of laryngeal cancer with previous chemoradiation, tracheostomy tube placement, PEG tube placement, chronic tobacco dependence, hypothyroidism, Graves' disease, diverticulosis. A recent PET scan from March 30, 2024 revealed progression of disease with uptake just above the level of the tracheostomy cannula which is increased in both size and metabolic activity. Uptake along the pleural on the right previous infection in this region. There is a ball-like uptake within an area of consolidation possibly representing metastatic nodule versus local infection. He came to the emergency room yesterday after he started coughing up some blood. This was not coming from his trachea. His trachea and tracheal tube is clean. CT angiogram and a CT angiogram of his neck are pending. White count 7.4. Hemoglobin 8.3. Platelets 318. Sodium 139. Potassium 3.0. Bicarb 25. BUN 31. Creatinine 0.56. Glucose 84. He is seen today in consultation on the regular medical floor. He is currently sitting up in bed. Awake, alert no acute distress. He is spitting up some blood-tinged saliva. Good O2 saturations in the 90s on 28% FiO2 via trach collar. He is afebrile. The patient is seen today May 09, 2024 and follow-up on the regular medical floor. He is currently sitting up in bed. Awake and alert in no acute distress. He is maintaining good O2 saturations in the 90s on room air. Continuing to have some spitting up of blood tinged saliva. Less today compared to yesterday. Tracheostomy tube and inner cannula remain clear of any blood. White count 8.7. Hemoglobin 10.0. Platelets 391. CT angiogram reports of the chest and neck are still pending. He is continued on Unasyn. Objective - Vital Signs Vital signs: Vital Signs Temp 98.2 F 05/09/24 07:03 Pulse 80 05/09/24 07:03 Resp 15 05/09/24 07:03 BP 93/56 05/09/24 07:03 Pulse Ox 96 05/09/24 07:59 FiO2 28 05/09/24 07:59 Intake & Output 05/08/24 05/09/24 05/09/24 18:59 06:59 18:59 Weight 54.431 kg 55.5 kg Other: # Voids 2 - Exam GENERAL EXAM: Alert, pleasant, thin 58-year-old male, comfortable in no apparent distress. HEAD: Normocephalic. EYES: Normal reaction of pupils, equal size. NOSE: Clear with pink turbinates. THROAT: No erythema or exudates. NECK: Tracheostomy tube secured in place. CHEST: No chest wall deformity. LUNGS: Equal air entry with no crackles, wheeze, rhonchi or dullness. CVS: S1 and S2 normal with no audible murmur, regular rhythm. ABDOMEN: PEG tube exit site clean and dry. No hepatosplenomegaly, normal bowel sounds, no guarding or rigidity. SPINE: No scoliosis or deformity SKIN: No rashes CENTRAL NERVOUS SYSTEM: No focal deficits, tone is normal in all 4 extremities. EXTREMITIES: There is no peripheral edema. No clubbing, no cyanosis. Peripheral pulses are intact. - Labs CBC & Chem 7: 05/09/24 02:54 05/07/24 21:24 Labs: Abnormal Lab Results - Last 24 Hours (Table) 05/09/24 Range/Units 02:54 RBC 3.52 L (4.40-5.60) X 10*6/uL Hgb 10.0 L (13.0-17.0) g/dL Hct 33.6 L (39.6-50.0) % MCHC 29.8 L (32.0-37.0) g/dL RDW 14.7 H (11.5-14.5) % Immature Gran # 0.07 H (0.00-0.04) X 10*3/uL Assessment and Plan Assessment: Blood-tinged saliva, suspect coming from the back of his throat. Tracheostomy site and inner cannula are clear and no blood noted. CT angiogram of the neck and chest are pending. Patient may need surgical intervention use. May need to be evaluated for eventual salvage laryngectomy History of laryngeal cancer with previous chemoradiation. Tracheostomy and PEG tubes placed. PET scan from March 2024 showing progression History of large right-sided hydropneumothorax with previous chest tube insertion and subsequent removal in December 2023 Masslike consolidation in the right midlung dating back to November 2023 Chronic and ongoing tobacco dependence Hypothyroidism Chronic obstructive pulmonary disease Plan: The patient was seen and evaluated Labs and medications reviewed Continue to observe for bleeding Tracheostomy and inner cannula are clean Currently stable and on room air Radiation oncology spoke with the patient's surgeon Dr. Morales Plan may be for transfer for neuro-interventional to stop the bleeding This patient was seen independently by the pulmonary nurse practitioner addressing pulmonary issues I have personally seen and examined the patient, performed the documentation and the assessment and plan as written. Number of minutes spent on the visit: 25.
[2024-05-09 11:34] LABS: ALT 23 U/L (10-49); AST 15 U/L (14-35); Albumin 3.3 g/dL (3.8-4.9); Albumin/Globulin Ratio 1.65 Ratio (1.60-3.17); Alkaline Phosphatase 73 U/L (41-126); BUN/Creat Ratio 37.67 Ratio (12.00-20.00); Blood Urea Nitrogen 22.6 mg/dL (9.0-27.0); Calcium 8.5 mg/dL (8.7-10.3); Carbon Dioxide 28.4 mmol/L (21.6-31.8); Chloride 104 mmol/L (96-109); Glucose 86 mg/dL (70-110); Magnesium 2.2 mg/dL (1.5-2.4); Potassium 4.3 mmol/L (3.5-5.5); Sodium 143 mmol/L (135-145); Total Bilirubin <0.2 mg/dL (0.3-1.2); Total Protein 5.3 g/dL (6.2-8.2)
[2024-05-09] MEDS: HYDROmorphone 1 MG/ML 1 ML SYRINGE IVP PRN (14:53)
--- NOTE | 2024-05-09 16:31 | P.PN ---
Subjective Progress Note Date: 05/09/24 Principal diagnosis: hemoptysis, recurrent sq cell carcinoma In f/u today pt cont to expectorate thick secretions, there is less bright red blood but blood is still present. He is c/o pain, he does not feel that the morphine works a well as the dilaudid. Objective - Vital Signs Vital signs: Vital Signs Temp 98.2 F 05/09/24 07:03 Pulse 80 05/09/24 07:03 Resp 15 05/09/24 07:03 BP 93/56 05/09/24 07:03 Pulse Ox 96 05/09/24 07:59 FiO2 28 05/09/24 07:59 Intake & Output 05/08/24 05/09/24 05/09/24 18:59 06:59 18:59 Weight 54.431 kg 55.5 kg Other: # Voids 2 - Constitutional General appearance: Present: cooperative, no acute distress, thin - EENT Eyes: Present: anicteric sclerae, EOMI ENT: Present: hearing grossly normal - Respiratory Respiratory: bilateral: diminished - Cardiovascular Rhythm: regular - Peripheral edema leg Peripheral Edema: bilateral: None - Musculoskeletal Musculoskeletal: Present: strength equal bilaterally - Psychiatric Psychiatric: Present: A&O x's 3, appropriate affect, intact judgment & insight - Labs CBC & Chem 7: 05/09/24 02:54 05/09/24 02:54 Assessment and Plan (1) Hemoptysis Current Visit: Yes Status: Acute Priority: High Code(s): R04.2 - HEMOPTYSIS SNOMED Code(s): 60796647 (2) Squamous cell carcinoma of head and neck Current Visit: Yes Status: Acute Priority: High Code(s): C44.42 - SQUAMOUS CELL CARCINOMA OF SKIN OF SCALP AND NECK SNOMED Code(s): 796319506 Plan: Hemoptysis -Concern for erosion of tumor into blood vessel or a fistula as a cause for persistent hemoptysis -Case discussed with Rad Onc and Attending MINK FARMER and Attending MD. -Dr. Moreira reviewed with pt that it is necessary for him to be evaluated by ENT Onc so that the origin of the bleeding can be assessed and possibly treated. The bleeding could stop but then resume at any time, could be erosion into large blood vessel that could be fatal. -[facility] in [place], ENT Onc, Dr. Morales had discussed case with Rad Onc yesterday, my impression was that Dr. Turcios would accept pt transfer. This was communicated to IM who is completing the transfer. Hem/Onc available to assist if needed. -CBC/Hgb is currently stable -No anticoagulation, asa, NSAIDs, SCDs for DVT prophylaxis Recurrent Head/Neck sq cell carcinoma -recent biopsy proven recurrence of squamous cell head/neck malig -Was to be seen by Rad Onc for treatment option, he wasn't seen yet. Consulted Rad Onc and Dr. Bright has seen pt -Concerns about lung infiltrate-malignant vs abscess-pt had a VAT, no malignant cells, more consistent with infection. Pulmonary has seen and evaluated pt. -Consensus seems to be that hemoptysis is from neck/throat. [place] that best course is for pt to be seen by ENT Onc Surgeon 1st for direct visualization and possible treatment. --Proceed with transfer to ENT Onc Dr. Morales. Pain meds adjusted per pt request again today. Morphine not adequate, restarted dilaudid, increased dose attests: I have seen and examined pt, performed H&P, developed impression and plan of care. Discussed with dictator. Agree with documentation, dictated as a scribe.
--- NOTE | 2024-05-09 18:27 | P.PN ---
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 Moreira, status postchemotherapy and radiation, not currently on any treatment at this time), hypothyroidism, COPD, and history of Graves' disease who presents to the emergency room with complaints of hemoptysis. Subjective: Patient seen at bedside. No acute events overnight. Patient is complaining of neck pain Pertinent positives and negatives discussed above, a complete review of systems was preformed and all the other systems were negative. Vitals Signs Reviewed. General: non toxic, no distress, appears at stated age, normal weight Derm: no unusual rashes/lesions, warm Head: atraumatic, normocephalic, symmetric Eyes: EOMI, no lid lag, anicteric sclera, pupils equal round reactive to light ENT: Nose and ears atraumatic Neck: No cervical lymphadenopathy, trachea midline, supple Mouth: no lip lesion, mucus membranes moist Cardiovascular: S1S2 reg, no murmur, positive dorsalis pedis pulse bilateral, no edema Lungs: Decreased air entry bilaterally, no rhonchi, no rales, no accessory muscle use Abdominal: soft, nontender to palpation, no guarding Ext: muscle strength 5 out of 5 in all 4 extremities grossly, no gross muscle atrophy, no contractures, Neuro: CN II-XI grossly intact, no gross focal neuro deficits Psych: Alert, oriented, appropriate affect Data Reviewed Today: Patient Labs: WBCs 8.76, hemoglobin 10, platelets 391. Sodium 143, potassium 4.3, chloride 104, bicarb 28.4, BUN 22.6, creatinine 0.6, calcium 8.5, mag 2.2. Imaging: Neck and chest CTs completed, reports pending Assessment and Plan: Hemoptysis in setting of laryngeal carcinoma with local invasion Aspiration pneumonia Oncology on board Pain control Hemoptysis improving Patient will likely be transferred to [facility] Continue Unasyn Hypokalemia, resolved Chronic conditions: Hypothyroidism, COPD F none E repleted as needed DVT ppx: Deferred Anticipated discharge place: Transfer to other facility Anticipated discharge time: Possibly tomorrow I saw and evaluated the patient during the lopez and critical portions of this encounter, and discussed the case in detail with the resident author of this not e, I agree with the Assessment and Plan, and my changes, if any, are highlighted in blue. Objective - Vital Signs Vital signs: Vital Signs Temp 98.2 F 05/09/24 07:03 Pulse 80 05/09/24 07:03 Resp 15 05/09/24 07:03 BP 93/56 05/09/24 07:03 Pulse Ox 96 05/09/24 07:59 FiO2 28 05/09/24 07:59 Intake & Output 05/08/24 05/09/24 05/09/24 18:59 06:59 18:59 Weight 54.431 kg 55.5 kg Other: # Voids 2 - Labs CBC & Chem 7: 05/09/24 02:54 05/09/24 02:54
[2024-05-10 01:21] VITALS: RESP 20
[2024-05-10 07:38] VITALS: PULSE 67; TEMP 97.5
[2024-05-10 09:09] VITALS: BMI 18.3
--- NOTE | 2024-05-10 11:37 | P.PN ---
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 Moreira, status postchemotherapy and radiation, not currently on any treatment at this time), hypothyroidism, COPD, and history of Graves' disease who presents to the emergency room with complaints of hemoptysis. Subjective: Patient seen at bedside. Patient is complaining of neck pain still having bloody sputum. Pertinent positives and negatives discussed above, a complete review of systems was preformed and all the other systems were negative. Vitals Signs Reviewed. General: non toxic, no distress, appears at stated age, normal weight Derm: no unusual rashes/lesions, warm Head: atraumatic, normocephalic, symmetric Eyes: EOMI, no lid lag, anicteric sclera, pupils equal round reactive to light ENT: Nose and ears atraumatic Neck: No cervical lymphadenopathy, trachea midline, supple Mouth: no lip lesion, mucus membranes moist Cardiovascular: S1S2 reg, no murmur, positive dorsalis pedis pulse bilateral, no edema Lungs: Decreased air entry bilaterally, no rhonchi, no rales, no accessory muscle use Abdominal: soft, nontender to palpation, no guarding Ext: muscle strength 5 out of 5 in all 4 extremities grossly, no gross muscle atrophy, no contractures, Neuro: CN II-XI grossly intact, no gross focal neuro deficits Psych: Alert, oriented, appropriate affect Data Reviewed Today: Patient Labs: No new labs today Imaging: Neck and chest CTs completed and reviewed personally Assessment and Plan: Hemoptysis in setting of laryngeal carcinoma with local invasion Aspiration pneumonia Oncology on board Pain control Hemoptysis Patient will be transferred to [facility]- in progress Continue Unasyn Hypokalemia, resolved Chronic conditions: Hypothyroidism, COPD F none E repleted as needed DVT ppx: Deferred Anticipated discharge place: Transfer to [facility] Anticipated discharge time: Pending acceptance at other facility I saw and evaluated the patient during the lopez and critical portions of this encounter, and discussed the case in detail with the resident author of this note, I agree with the Assessment and Plan, and my changes, if any, are highlighted in blue. Objective - Vital Signs Vital signs: Vital Signs Temp 97.5 F L 05/10/24 06:52 Pulse 67 05/10/24 06:52 Resp 20 05/10/24 06:52 BP 93/56 05/10/24 06:52 Pulse Ox 94 L 05/10/24 06:52 FiO2 28 05/09/24 07:59 Intake & Output 05/09/24 05/10/24 05/10/24 18:59 06:59 18:59 Weight 56.5 kg Other: Voiding Method Toilet # Voids 2 - Labs CBC & Chem 7: 05/09/24 02:54 05/09/24 02:54 Labs: Abnormal Lab Results - Last 24 Hours (Table) 05/09/24 05/09/24 Range/Units 02:54 02:54 RBC 3.52 L (4.40-5.60) X 10*6/uL Hgb 10.0 L (13.0-17.0) g/dL Hct 33.6 L (39.6-50.0) % MCHC 29.8 L (32.0-37.0) g/dL RDW 14.7 H (11.5-14.5) % Immature Gran # 0.07 H (0.00-0.04) X 10*3/uL BUN/Creatinine Ratio 37.67 H (12.00-20.00) Ratio Calcium 8.5 L (8.7-10.3) mg/dL Total Bilirubin <0.2 L (0.3-1.2) mg/dL Total Protein 5.3 L (6.2-8.2) g/dL Albumin 3.3 L (3.8-4.9) g/dL
--- NOTE | 2024-05-10 11:44 | P.PN ---
Subjective Progress Note Date: 05/10/24 This is a pleasant 58-year-old male patient with a known history of laryngeal cancer with previous chemoradiation, tracheostomy tube placement, PEG tube placement, chronic tobacco dependence, hypothyroidism, Graves' disease, diverticulosis. A recent PET scan from March 30, 2024 revealed progression of disease with uptake just above the level of the tracheostomy cannula which is increased in both size and metabolic activity. Uptake along the pleural on the right previous infection in this region. There is a ball-like uptake within an area of consolidation possibly representing metastatic nodule versus local infection. He came to the emergency room yesterday after he started coughing up some blood. This was not coming from his trachea. His trachea and tracheal tube is clean. CT angiogram and a CT angiogram of his neck are pending. White count 7.4. Hemoglobin 8.3. Platelets 318. Sodium 139. Potassium 3.0. Bicarb 25. BUN 31. Creatinine 0.56. Glucose 84. He is seen today in consultation on the regular medical floor. He is currently sitting up in bed. Awake, alert no acute distress. He is spitting up some blood-tinged saliva. Good O2 saturations in the 90s on 28% FiO2 via trach collar. He is afebrile. The patient is seen today May 09, 2024 and follow-up on the regular medical floor. He is currently sitting up in bed. Awake and alert in no acute distress. He is maintaining good O2 saturations in the 90s on room air. Continuing to have some spitting up of blood tinged saliva. Less today compared to yesterday. Tracheostomy tube and inner cannula remain clear of any blood. White count 8.7. Hemoglobin 10.0. Platelets 391. CT angiogram reports of the chest and neck are still pending. He is continued on Unasyn. The patient is seen today May 10, 2024 in follow-up on the regular medical floor. He is awake and alert in no acute distress. He is sitting up in bed. He is maintaining good O2 saturations in the 90s on room air. He does unfortunately continue to spit up blood-tinged sputum which has increased today compared to yesterday again. He is awaiting transfer to [facility] for further evaluation. No new labs today. He remains on Unasyn. Procalcitonin is pending. CT angiogram reports of the chest and neck are still pending. Objective - Vital Signs Vital signs: Vital Signs Temp 97.5 F L 05/10/24 06:52 Pulse 67 05/10/24 06:52 Resp 20 05/10/24 06:52 BP 93/56 05/10/24 06:52 Pulse Ox 94 L 05/10/24 06:52 FiO2 28 05/09/24 07:59 Intake & Output 05/09/24 05/10/24 05/10/24 18:59 06:59 18:59 Weight 56.5 kg 56.5 kg Other: Voiding Method Toilet Toilet # Voids 2 - Exam GENERAL EXAM: Alert, thin 58-year-old male, on room air, comfortable in no apparent distress. HEAD: Normocephalic. EYES: Normal reaction of pupils, equal size. NOSE: Clear with pink turbinates. THROAT: No erythema or exudates. NECK: Tracheostomy tube secured in place. CHEST: No chest wall deformity. LUNGS: Equal air entry with no crackles, wheeze, rhonchi or dullness. CVS: S1 and S2 normal with no audible murmur, regular rhythm. ABDOMEN: PEG tube exit site clean and dry. No hepatosplenomegaly, normal bowel sounds, no guarding or rigidity. SPINE: No scoliosis or deformity SKIN: No rashes CENTRAL NERVOUS SYSTEM: No focal deficits, tone is normal in all 4 extremities. EXTREMITIES: There is no peripheral edema. No clubbing, no cyanosis. Peripheral pulses are intact. - Labs CBC & Chem 7: 05/09/24 02:54 05/09/24 02:54 Assessment and Plan Assessment: Blood-tinged saliva, suspect coming from the back of his throat. Tracheostomy site and inner cannula are clear and no blood noted. CT angiogram reports of the neck and chest are still pending. Patient may need surgical intervention use. May need to be evaluated for eventual salvage laryngectomy History of laryngeal cancer with previous chemoradiation. Tracheostomy and PEG tubes placed. PET scan from March 2024 showing progression History of large right-sided hydropneumothorax with previous chest tube insertion and subsequent removal in December 2023 Masslike consolidation in the right midlung dating back to November 2023 Chronic and ongoing tobacco dependence Hypothyroidism Chronic obstructive pulmonary disease Plan: The patient was seen and evaluated Medications reviewed Currently stable and on room air Tracheostomy and inner cannula are clean Awaiting transfer to the patient's surgeon Dr. Morales This patient was seen independently by the pulmonary nurse practitioner addressing pulmonary issues I have personally seen and examined the patient, performed the documentation and the assessment and plan as written. Number of minutes spent on the visit: 23.
[2024-05-10 12:23] VITALS: BP 96/61
--- NOTE | 2024-05-10 17:13 | P.PN ---
Subjective Progress Note Date: 05/10/24 Principal diagnosis: hemoptysis, recurrent sq cell carcinoma In f/u today pt cont to expectorate thick secretions, he is experiencing more blood with expectoration today, he though some was coming from his sinuses. He reports adequate pain control with dilaudid. Objective - Vital Signs Vital signs: Vital Signs Temp 97.5 F L 05/10/24 11:36 Pulse 67 05/10/24 11:36 Resp 20 05/10/24 11:36 BP 96/61 05/10/24 11:36 Pulse Ox 94 L 05/10/24 15:54 FiO2 28 05/09/24 07:59 Intake & Output 05/09/24 05/10/24 05/10/24 18:59 06:59 18:59 Weight 56.5 kg 56.5 kg Other: Voiding Method Toilet Toilet # Voids 2 - Constitutional General appearance: Present: cooperative, no acute distress, thin - EENT EENT Comment(s): no blood in nares or posterior oropharynx. Copious mucus with blood Eyes: Present: anicteric sclerae, EOMI - Respiratory Respiratory: bilateral: CTA - Cardiovascular Rhythm: regular Heart sounds: normal: S1, S2 - Peripheral edema leg Peripheral Edema: bilateral: None - Musculoskeletal Musculoskeletal: Present: strength equal bilaterally - Psychiatric Psychiatric: Present: A&O x's 3, appropriate affect, intact judgment & insight - Labs CBC & Chem 7: 05/09/24 02:54 05/09/24 02:54 Assessment and Plan (1) Hemoptysis Status: Acute Priority: High Code(s): R04.2 - HEMOPTYSIS SNOMED Code(s): 00352329 (2) Squamous cell carcinoma of head and neck Status: Acute Priority: High Code(s): C44.42 - SQUAMOUS CELL CARCINOMA OF SKIN OF SCALP AND NECK SNOMED Code(s): 014633933 Plan: Hemoptysis -Concern for erosion of tumor into blood vessel or a fistula as a cause for persistent hemoptysis -Pt being transferred to [facility] under Dr. Morales ENT Onc. -It was aging reviewed with pt and family at bedside today it is necessary for him to be evaluated by ENT Onc so that the origin of the bleeding can be assessed and possibly treated. The bleeding could stop but then resume at any time, could be erosion into large blood vessel that could be fatal. -No anticoagulation, asa, NSAIDs, SCDs for DVT prophylaxis Recurrent Head/Neck sq cell carcinoma -recent biopsy proven recurrence of squamous cell head/neck malig -Was to be seen by Rad Onc for treatment option, he wasn't seen yet. Consulted Rad Onc and Dr. Bright has seen pt -Concerns about lung infiltrate-malignant vs abscess-pt had a VAT, no malignant cells, more consistent with infection. Pulmonary has seen and evaluated pt. -Consensus seems to be that hemoptysis is from neck/throat. [place] that best course is for pt to be seen by ENT Onc Surgeon 1st, for direct visualization and possible treatment. -After ENT Onc assessment, pending recommendations, then will plan treatment course. All patient and family member questions were answered to their satisfaction. They verbalized understanding the plan of care. Pain med adjustment adequate per pt.
--- NOTE | 2024-05-11 17:33 | P.DS ---
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 Moreira, status postchemotherapy and radiation, not currently on any treatment at this time), hypothyroidism, COPD, and history of Graves' disease who presented to the emergency room on 05/08 with complaints of hemoptysis. The patient reported that his symptoms started roughly 2 days ago with gross bloody phlegm upon coughing. He denied any prior history of such symptoms. Also reports gradually worsening throat pain which has now worsened to a 9 out of 10, constant, over the past 1 week. He denied experiencing fever, chills, chest pain, shortness of breath, nausea, vomiting, diaphoresis, or dizziness. The patient does report that he has lost a significant amount of weight over the past several months. In the emergency room, a Neck CT w/ contrast revealed findings consistent with known malignancy with suspected local infiltration of the surrounding tissues along with a possible abscess and AV malformation. Chest CT also revealed findings concerning for an aspiration pneumonia. Laboratory evaluation revealed hemoglobin of 8.3 (at baseline), potassium 3.0, BUN 31, creatinine 0.56, lactic acid less than 0.5, calcium 6.6, and albumin 2.4. Patient was admitted for further evaluation and started on antibiotics and pain control. Patient was seen by oncology and pulmonology. Due to concern about tumor erosion into blood vessel, the patient was transferred to [facility] in [place] under Dr. Morales (ENT oncology). Pt seen and examined at bedside: Patient was still having episodes of hemoptysis and bloody sputum and complaining of neck pain. Vital signs reviewed and stable. Patient is normotensive, afebrile, hemodynamically stable saturating well on room air. General: non toxic, no distress, appears at stated age, normal weight, tracheostomy and inner cannula are clean Derm: no unusual rashes/lesions, warm Head: atraumatic, normocephalic, symmetric Eyes: EOMI, no lid lag, anicteric sclera, pupils equal round reactive to light ENT: Nose and ears atraumatic Neck: No cervical lymphadenopathy, trachea midline, supple Mouth: no lip lesion, mucus membranes moist Cardiovascular: S1S2 reg, no murmur, positive dorsalis pedis pulse bilateral, no edema Lungs: Decreased air entry bilaterally, no rhonchi, no rales, no accessory muscle use Abdominal: soft, nontender to palpation, no guarding Ext: muscle strength 5 out of 5 in all 4 extremities grossly, no gross muscle atrophy, no contractures, Neuro: CN II-XI grossly intact, no gross focal neuro deficits Psych: Alert, oriented, appropriate affect A total of 30 minutes were spent preparing this complex discharge summary. Patient was discharged on 05/10/2024. Attending physician: Deyanira Coffey MD Consults: 05/08/24 04:40 Consult Physician Urgent Consulting Provider: Ck Moreira Consult Reason/Comments: Laryngeal cancer Do you want consulting provider notified?: Yes 05/08/24 10:37 Consult Physician Routine Consulting Provider: Luis Whipple Consult Reason/Comments: review lung mass, malignant vs infection? Do you want consulting provider notified?: Yes Consult Physician Urgent Consulting Provider: Emilio Bright Consult Reason/Comments: Hemoptysis, symptomatic Head/neck malig, ?palliative radiation Do you want consulting provider notified?: Yes Primary care physician: Jung Gutierrez Patient Condition at Discharge: Good Plan - Discharge Summary New Discharge Prescriptions: No Action Ibuprofen [Motrin] 600 mg PO BID HYDROcodone/APAP 7.5-325MG [[place] 7.5-325] 1 tab PO TID Discharge Medication List HYDROcodone/APAP 7.5-325MG [[place] 7.5-325] 1 tab PO TID 05/08/24 [History] Ibuprofen [Motrin] 600 mg PO BID 05/08/24 [History] Follow up Appointment(s)/Referral(s): Ck Moreira [STAFF PHYSICIAN] - 05/11/24 3:00 pm Jung Gutierrez DO [Primary Care Provider] - 1-2 days Discharge Disposition: TRANSFER TO SHORT TERM HOSP
== END 2024-05-10 16:46 | disposition short-term general hospital (02) | DRG 146 ==
LOC: EC 17:21 → 5NMEDONC 05-08 02:16 → OBSVTOIN 05-10 10:35
PROVIDERS: ADMIT Internal Medicine; ATTEND Internal Medicine
PROC: 3E0G76Z Introduction of Nutritional Substance into Upper GI, Via Natural or Artificial Opening (ICD-10-PCS; principal; 2024-05-08)
DX: C32.1 Malignant neoplasm of supraglottis (principal); J69.0 Pneumonitis due to inhalation of food and vomit; J86.9 Pyothorax without fistula; K92.0 Hematemesis; Z68.1 Body mass index [BMI] 19.9 or less, adult; F17.200 Nicotine dependence, unspecified, uncomplicated; C32.9 Malignant neoplasm of larynx, unspecified; E03.9 Hypothyroidism, unspecified; E05.00 Thyrotoxicosis with diffuse goiter without thyrotoxic crisis or storm; E87.6 Hypokalemia; J44.9 Chronic obstructive pulmonary disease, unspecified; Z92.21 Personal history of antineoplastic chemotherapy; Z92.3 Personal history of irradiation; Z93.0 Tracheostomy status; Z93.1 Gastrostomy status; R63.4 Abnormal weight loss; Z87.01 Personal history of pneumonia (recurrent); Z71.3 Dietary counseling and surveillance; Z28.21 Immunization not carried out because of patient refusal; Z79.1 Long term (current) use of non-steroidal anti-inflammatories (NSAID); Z79.891 Long term (current) use of opiate analgesic
CPT/HCPCS: 96361; 96374; 96375; 96376; 99285

== ENCOUNTER 2024-06-12 10:42 | Day surgery (SDC) | payer BC ==
[2024-06-08 14:35] VITALS: BMI 19.8
[~2024-06-12 10:42] MED LIST: ACETAMINOPHEN TAB 500 MG TAB PO PRN; HEPARIN SODIUM,PORCINE 5,000 UNIT/ML 1 ML VIAL SQ PRN; HYDROmorphone 0.5 MG/0.5 ML SYRINGE IVP PRN; LIDOCAINE 1% (10MG/ML) FOR IV START INTRADERMA PRN; Pre Op ABX Message 1 EACH MISC MISCELLANE ONE; droPERidol 5 MG/2 ML VIAL IVP PRN
[2024-06-12] MEDS: IV FLUID CONTINUATION 1,000 ML IV ONE (12:23)
[2024-06-12] MEDS: LACTATED RINGERS 1,000 ML IV SCH (12:24)
[2024-06-12] MEDS: DEXAMETHASONE SOD PHOSPHATE 4 MG/ML 1 ML VIAL IV ONE (12:27)
[2024-06-12] MEDS: ONDANSETRON 4 MG/2 ML VIAL IVP ONE (12:27)
--- NOTE | 2024-06-12 13:28 | P.GSHP ---
History of Present Illness H&P Date: 06/12/24 Chief Complaint: History of esophageal cancer This a 58-year-old male with previous history of esophageal cancer. Patient presents today for Port-A-Cath placement for immunotherapy Past Medical History Past Medical History: Cancer, COPD, Syncope, Thyroid Disorder Additional Past Medical History / Comment(s): Graves disease, diverticulosis, esophageal cancer with radiation and chemo-last 08/05 at [facility],. [place] [facility] [place] and is in [facility] ICU to cauterize artery going through tumor in throat; laryngeal CA History of Any Multi-Drug Resistant Organisms: None Reported Past Surgical History: Tonsillectomy Additional Past Surgical History / Comment(s): vasectomy, biopsy of throat, trach, PEG tube, cauterization of tumor at [facility] 05/2024 Past Anesthesia/Blood Transfusion Reactions: No Reported Reaction Past Psychological History: No Psychological Hx Reported Smoking Status: Former smoker Past Alcohol Use History: None Reported Past Drug Use History: None Reported - Past Family History Father History Unknown: Yes Family Medical History: Diabetes Mellitus Medications and Allergies Home Medications Medication Instructions Recorded Confirmed Type Amoxicillin/Potassium Clav 1 tab PO BID 06/08/24 06/12/24 History [Amox-Clav 875-125 mg Tablet] Hydrocodone/Acetaminophen 1 tab PO DIRECTED PRN 06/08/24 06/12/24 History [Hydrocodone/Acetaminophen 10-300 mg] Allergies Allergy/AdvReac Type Severity Reaction Status Date / Time No Known Allergies Allergy Verified 06/12/24 12:15 Surgical - Exam Vital Signs Temp Pulse Resp BP Pulse Ox 97.4 F L 85 20 118/62 94 L 06/12/24 12:31 06/12/24 12:31 06/12/24 12:31 06/12/24 12:31 06/12/24 12:31 - General cachectic, chronically ill - Eyes PERRL - ENT normal pinna - Neck no masses - Respiratory normal expansion - Cardiovascular Rhythm: regular - Abdomen Abdomen: soft, non tender Assessment and Plan Assessment: History of esophageal cancer. Will perform Port-A-Cath placement.
[2024-06-12] MEDS ORDERED: fentaNYL (PF) 50 MCG/ML 2 ML AMP ONE (13:32)
[2024-06-12] MEDS ORDERED: MIDAZOLAM 2 MG/2 ML VIAL ONE (13:32)
[2024-06-12] MEDS: HEPARIN SODIUM,PORCINE 100 UNIT/ML 5 ML VIAL IV ONE (14:00)
--- NOTE | 2024-06-12 14:14 | P.OP ---
Date of Procedure: 06/12/24 Preoperative Diagnosis: History of esophageal cancer Postoperative Diagnosis: Same Procedure(s) Performed: Right subclavian Port-A-Cath Anesthesia: BALTAZAR Surgeon: Yvon Vargas Estimated Blood Loss (ml): 5 Pathology: none sent Condition: stable Disposition: PACU Description of Procedure: The patient was placed on the operating table in the supine position. The patient received IV sedation. The patient's chest was prepped and draped in the usual sterile fashion. A roll had been placed between the shoulder blades in a longitudinal fashion. After prepping and draping the skin was anesthetized 1% local Xylocaine. And then using the Seldinger technique the subclavian vein was cannulated. A wire was placed into the vein and fluoroscopy position the wire at the atrial caval junction. Next the dilator sheath was placed over top the wire and the wire was withdrawn. The catheter was positioned at the atriocaval position. The catheter was placed through the sheath after the dilator was withdrawn. The sheath was then withdrawn. Position of the catheter was confirmed with fluoroscopy. The Port-A-Cath was connected to the catheter. The Port-A-Cath was flushed with saline and then heparinized saline. The skin was closed interrupted 3-0 Monocryl suture. Dermabond was applied. Patient tolerated procedure well and was sent to recovery room stable condition.
[2024-06-12 14:24] VITALS: TEMP 97.2
--- NOTE | 2024-06-12 17:09 | XR ---
EXAMINATION TYPE: XR chest 1V portable DATE OF EXAM: 06/12/2024 3:20 PM CLINICAL INDICATION: Male, 58 years old with history of Right subclavian Port-A-Cath; [facility] COMPARISON: Chest radiographs from 01/24/2024 TECHNIQUE: XR chest 1V portable Frontal view of the chest. FINDINGS: Lungs/Pleura: Similar right lower lung hazy opacities likely sequela of prior infection. There is fla ttening of the diaphragm with increased lucency of the lungs. No evidence of pneumothorax, pleural ef fusion or focal consolidation. Pulmonary vascularity: Unremarkable. Heart/mediastinum: Cardiomediastinal silhouette is unremarkable. Musculoskeletal: No acute osseous pathology. Other findings: None Lines/Tubes: Oezrhk-o-Aztd projecting over the right hemithorax with distal tip projecting over the superior vena cava. IMPRESSION: 1. Portacatheter placement with tip in appropriate position No evidence for pneumothorax. 2. COPD changes. [facility], , 06/12/2024 5:07 PM
[2024-06-12 17:59] VITALS: BP 98/65; PULSE 75; RESP 14
--- NOTE | 2024-06-13 18:14 | FL ---
EXAMINATION TYPE: FL guided central line placemt DATE OF EXAM: 06/12/2024 2:21 PM COMPARISON: Pre Operative Images if available both CT/MRI or plain film CLINICAL INDICATION: Male, 58 years old with history of C32.1 SUPRAGLOTTIS CANCER; TECHNIQUE: FL guided central line placemt, multiple fluoroscopic images provided for procedure. Total fluoroscopy time: 2.5 seconds Total submitted images to PACS: 1 DAP: 0.0537 mGym2 Gycm2 uGym2 cGycm2 or equivalent. FINDINGS: Fluoroscopic images during Port-A-Cath placement demonstrates evidence for pneumothorax. Tracheostomy cannula present. Scattered atherosclerosis and varying degrees of luminal narrowing noted. IMPRESSION: 1. No evidence for intraoperative complication. 2. Please see the operative/procedural note for further details. [facility], , 06/13/2024 6:11 PM
== END 2024-06-12 18:13 | disposition home or self-care (01) ==
LOC: OR 10:42
PROVIDERS: ATTEND Surgery
DX: C32.1 Malignant neoplasm of supraglottis
CPT/HCPCS: 71045; 77001

== ENCOUNTER 2024-06-21 21:47 | Observation (INO) | payer BC ==
[2024-06-21] MEDS: SODIUM CHLORIDE 0.9% 1,000 ML IV STA ×2 (21:59→23:11)
--- NOTE | 2024-06-21 22:09 | ED ---
General Adult HPI - General Chief complaint: Weakness Stated complaint: Hypotension Time Seen by Provider: 06/21/24 21:56 Source: patient, EMS Mode of arrival: EMS - History of Present Illness Initial comments: Dictation was produced using [employer] dictation software. please excuse any grammatical, word or spelling errors. Chief Complaint: 59-year-old male presents to the emergency department throat pain History of Present Illness: Patient is a 59-year-old male who is has past medical history cancer. Patient has a tracheostomy. Patient was brought in after EMS was called for a wellness check patient nonverbal communicates with writing. States that he he contacted family who ended up contacting EMS. Patient allegedly had low blood pressure en route to the emergency department. Patient requesting Dilaudid for total body pain. States that he has significant pain in his throat. Apparently he was recently admitted to the hospital just discharged a week and a half ago. The ROS documented in this emergency department record has been reviewed and confirmed by me. Those systems with pertinent positive or negative responses have been documented in the HPI. All other systems are other negative and/or noncontributory. - Related Data Home Medications Medication Instructions Recorded Confirmed Amoxicillin/Potassium Clav 1 tab PO BID 06/08/24 06/12/24 [Amox-Clav 875-125 mg Tablet] Hydrocodone/Acetaminophen 1 tab PO DIRECTED PRN 06/08/24 06/12/24 [Hydrocodone/Acetaminophen 10-300 mg] Allergies Allergy/AdvReac Type Severity Reaction Status Date / Time No Known Allergies Allergy Verified 06/12/24 12:15 Review of Systems ROS Statement: Those systems with pertinent positive or pertinent negative responses have been documented in the HPI. ROS Other: All systems not noted in ROS Statement are negative. Past Medical History Past Medical History: Cancer, COPD, Syncope, Thyroid Disorder Additional Past Medical History / Comment(s): Graves disease, diverticulosis, esophageal cancer with radiation and chemo-last 08/[address] [facility],. was in [facility] 06/06 and is in [facility] ICU to cauterize artery going through tumor in throat; laryngeal CA History of Any Multi-Drug Resistant Organisms: None Reported Past Surgical History: Tonsillectomy Additional Past Surgical History / Comment(s): vasectomy, biopsy of throat, trach, PEG tube, cauterization of tumor at [facility] 05/2024 Past Anesthesia/Blood Transfusion Reactions: No Reported Reaction Past Psychological History: No Psychological Hx Reported Smoking Status: Former smoker Past Alcohol Use History: None Reported Past Drug Use History: None Reported - Past Family History Father History Unknown: Yes Family Medical History: Diabetes Mellitus General Exam - General Exam Comments Initial Comments: PHYSICAL EXAM: General Impression: Alert and oriented x3, not in acute distress HEENT: Normocephalic atraumatic, extra-ocular movements intact, pupils equal and reactive to light bilaterally, mucous membranes moist, tracheostomy intact with significant drainage coming from the external site Cardiovascular: Heart regular rate and rhythm Chest: Able to complete full sentences, no retractions, no tachypnea, diffuse rhonchi Abdomen: abdomen soft, non-tender, non-distended, no organomegaly Musculoskeletal: Pulses present and equal in all extremities, no peripheral edema Motor: no focal deficits noted Neurological: CN II-XII grossly intact, no focal motor or sensory deficits noted Skin: Intact with no visualized rashes Psych: Normal affect and mood Course Vital Signs 06/21/24 06/21/24 06/21/24 21:48 21:55 22:58 Temperature 98.6 F Pulse Rate 77 82 Respiratory 18 18 18 Rate Blood Pressure 82/48 96/51 O2 Sat by Pulse 98 95 Oximetry EKG Findings - EKG Comments: EKG Findings:: My EKG interpretation: Ventricular rate 73, sinus rhythm,. 142, QRS 81, QTc 460. No PA prolongation, no QTC prolongation, no ST or T-wave changes noted. Overall, this EKG is unremarkable Medical Decision Making - Medical Decision Making Was pt. sent in by a medical professional or institution (Dr. PA, HYBRID POWERTRAIN DEVELOPMENT ENGINEER, urgent care, hospital, or shelter...) When possible be specific @ -No Did you speak to anyone other than the patient for history (EMS, parent, family, police, friend...)? What history was obtained from this source @ -With EMS as described above Did you review nursing and triage notes (agree or disagree)? Why? @ -I reviewed and agree with nursing and triage notes Were old charts reviewed (outside hosp., previous admission, EMS record, old EKG, old radiological studies, urgent care reports/EKG's, shelter records)? Report findings @ -No old charts were reviewed Differential Diagnosis (chest pain, altered mental status, abdominal pain women, abdominal pain men, vaginal bleeding, musculoskeletal, weakness, fever, dyspnea, syncope, headache, dizziness, GI bleed, back pain, seizure, CVA, palpatations, mental health)? @ -Dehydration, septic shock, hypotensive shock EKG interpreted by me (3pts min.). @ -None done X-rays interpreted by me (1pt min.). @ -Nonacute cxr CT interpreted by me (1pt min.). @ -None done U/S interpreted by me (1pt. min.). @ -None done What testing was considered but not performed or refused? (CT, X-rays, U/S, labs)? Why? @ -None What meds were considered but not given or refused? Why? @ -None Was smoking cessation discussed for >3mins.? @ -No Were there social determinants of health that impacted care today? How? (Homelessness, low income, unemployed, alcoholism, drug addiction, transportation, low edu. Level, literacy, decrease access to med. care, mcc, re hab)? @ -No Was there de-escalation of care discussed even if they declined (Discuss DNR or withdrawal of care, Hospice)? DNR status @ -No What co-morbidities impacted this encounter? (DM, HTN, Smoking, COPD, CAD, Cancer, CVA, ARF, Chemo, Hep., AIDS, mental health diagnosis, sleep apnea, morbid obesity)? @ -None Was patient admitted / discharged? Hospital course, mention meds given and route, prescriptions, significant lab abnormalities, going to OR and other pertinent info. @ -59-year-old male presents to the emergency department with total body pain specifically, tracheostomy pain and low blood pressure. Vital signs upon arrival shows blood pressure of 82/48. Patient states that his blood pressure usually runs a little on the low side. Does have some diffuse rhonchi. Laboratory evaluation acceptable limits. Patient given analgesics. Will be monitored for hypotension. Discussed with hospitalist for admission Did you discuss the management of the patient with other professionals (professionals i.e. , PA, HYBRID POWERTRAIN DEVELOPMENT ENGINEER, lab, RT, psych nurse, social director, screen tacker, teacher, parole hearing officer, housing case manager)? Give summary @ -See above Was critical care preformed (if so, how long)? @ -Yes, 33 minutes for evaluation of hypertension Undiagnosed new problem with uncertain prognosis? @ -No Drug Therapy requiring intensive monitoring for toxicity (Heparin, Nitro, Insulin, Cardizem)? @ -No Were any procedures done? @ -No Diagnosis/symptom? Acute, or Chronic, or Acute on Chronic? Uncomplicated (without systemic symptoms) or Complicated (systemic symptoms)? @ -Hypertension, intractable pain Side effects of treatment? @ -No Exacerbation, Progression, or Severe Exacerbation? @ -No Poses a threat to life or bodily function? How? (Chest pain, [place], [place], pneumonia, PE, COPD, DKA, ARF, appy, cholecystitis, CVA, Diverticulitis, Homicidal, Suicidal, threat to staff... and all critical care pts) @ -yes - Lab Data Result diagrams: 06/21/24 21:54 06/21/24 21:54 Lab Results 06/21/24 06/21/24 06/21/24 Range/Units 21:54 21:54 21:54 WBC 8.6 (3.8-10.6) k/uL RBC 3.78 L (4.30-5.90) m/uL Hgb 11.1 L (13.0-17.5) gm/dL Hct 36.6 L (39.0-53.0) % MCV 96.7 (80.0-100.0) fL MCH 29.3 (25.0-35.0) pg MCHC 30.3 L (31.0-37.0) g/dL RDW 16.1 H (11.5-15.5) % Plt Count 457 H (150-450) k/uL MPV 7.7 Neutrophils % 90 % Lymphocytes % 5 % Monocytes % 3 % Eosinophils % 2 % Basophils % 1 % Neutrophils # 7.7 (1.3-7.7) k/uL Lymphocytes # 0.4 L (1.0-4.8) k/uL Monocytes # 0.2 (0-1.0) k/uL Eosinophils # 0.2 (0-0.7) k/uL Basophils # 0.0 (0-0.2) k/uL Hypochromasia Marked Anisocytosis Slight Macrocytosis Slight PT 11.0 (10.0-12.5) sec INR 1.0 (<1.2) APTT 29.0 (22.0-30.0) sec Sodium 137 (137-145) mmol/L Potassium 4.5 (3.5-5.1) mmol/L Chloride 102 (98-107) mmol/L Carbon Dioxide 28 (22-30) mmol/L Anion Gap 7 mmol/L BUN 29 H (9-20) mg/dL Creatinine 0.68 (0.66-1.25) mg/dL Est GFR (CKD-EPI)AfAm >90 (>60 ml/min/1.73 sqM) Est GFR (CKD-EPI)NonAf >90 (>60 ml/min/1.73 sqM) Glucose 93 (74-99) mg/dL Plasma Lactic Acid Ricco (0.7-2.0) mmol/L Calcium 8.9 (8.4-10.2) mg/dL Magnesium 2.1 (1.6-2.3) mg/dL Total Bilirubin 1.3 (0.2-1.3) mg/dL AST 37 (17-59) U/L ALT 20 (4-49) U/L Alkaline Phosphatase 107 (38-126) U/L Total Protein 6.3 (6.3-8.2) g/dL Albumin 3.7 (3.5-5.0) g/dL 06/21/24 Range/Units 21:54 WBC (3.8-10.6) k/uL RBC (4.30-5.90) m/uL Hgb (13.0-17.5) gm/dL Hct (39.0-53.0) % MCV (80.0-100.0) fL MCH (25.0-35.0) pg MCHC (31.0-37.0) g/dL RDW (11.5-15.5) % Plt Count (150-450) k/uL MPV Neutrophils % % Lymphocytes % % Monocytes % % Eosinophils % % Basophils % % Neutrophils # (1.3-7.7) k/uL Lymphocytes # (1.0-4.8) k/uL Monocytes # (0-1.0) k/uL Eosinophils # (0-0.7) k/uL Basophils # (0-0.2) k/uL Hypochromasia Anisocytosis Macrocytosis PT (10.0-12.5) sec INR (<1.2) APTT (22.0-30.0) sec Sodium (137-145) mmol/L Potassium (3.5-5.1) mmol/L Chloride (98-107) mmol/L Carbon Dioxide (22-30) mmol/L Anion Gap mmol/L BUN (9-20) mg/dL Creatinine (0.66-1.25) mg/dL Est GFR (CKD-EPI)AfAm (>60 ml/min/1.73 sqM) Est GFR (CKD-EPI)NonAf (>60 ml/min/1.73 sqM) Glucose (74-99) mg/dL Plasma Lactic Acid Ricco 1.2 (0.7-2.0) mmol/L Calcium (8.4-10.2) mg/dL Magnesium (1.6-2.3) mg/dL Total Bilirubin (0.2-1.3) mg/dL AST (17-59) U/L ALT (4-49) U/L Alkaline Phosphatase (38-126) U/L Total Protein (6.3-8.2) g/dL Albumin (3.5-5.0) g/dL Disposition Clinical Impression: Pain Disposition: ADMITTED IP TO THIS [facility] Condition: Fair Referrals: Jung Gutierrez DO [Primary Care Provider] - 1-2 days Decision Time: 00:13
[2024-06-21 22:10] LABS: Anisocytosis Slight; Basophils % (A) 1 %; Eosinophils # (A) 0.2 k/uL (0-0.7); Eosinophils % (A) 2 %; HCT 36.6 % (39.0-53.0); HGB 11.1 gm/dL (13.0-17.5); Hypochromasia Marked; Lymphocytes # (A) 0.4 k/uL (1.0-4.8); Lymphocytes % (A) 5 %; MCH 29.3 pg (25.0-35.0); MCHC 30.3 g/dL (31.0-37.0); MCV 96.7 fL (80.0-100.0); Macrocytosis Slight; Mean Platelet Volume 7.7; Monocytes # (A) 0.2 k/uL (0-1.0); Monocytes % (A) 3 %; Neutrophils # (A) 7.7 k/uL (1.3-7.7); Neutrophils % (A) 90 %; Platelet Count 457 k/uL (150-450); RBC 3.78 m/uL (4.30-5.90); RDW 16.1 % (11.5-15.5); WBC 8.6 k/uL (3.8-10.6)
[2024-06-21 22:44] LABS: ALT 20 U/L (4-49); African American GFR (CKD) >90 (>60 ml/min/1.73 sqM); Albumin 3.7 g/dL (3.5-5.0); Anion Gap 7 mmol/L; Blood Urea Nitrogen 29 mg/dL (9-20); Calcium 8.9 mg/dL (8.4-10.2); Carbon Dioxide 28 mmol/L (22-30); Chloride 102 mmol/L (98-107); Glucose 93 mg/dL (74-99); Non-African American GFR(CKD) >90 (>60 ml/min/1.73 sqM); Sodium 137 mmol/L (137-145); Total Bilirubin 1.3 mg/dL (0.2-1.3); Total Protein 6.3 g/dL (6.3-8.2)
--- NOTE | 2024-06-21 22:44 | XR ---
EXAMINATION TYPE: XR chest 2V DATE OF EXAM: 06/21/2024 COMPARISON: Chest x-ray June 12, 2024 HISTORY: Hypotension TECHNIQUE: Frontal and lateral views of the chest are obtained. FINDINGS: Stable right subclavian Mediport catheter. There is background chronic emphysematous change with areas of increased opacity in the right lung redemonstrated. The cardiac silhouette size remai ns within normal limits. The osseous structures are intact. IMPRESSION: Chronic changes without new acute pulmonary process. [facility], , 06/21/2024 10:42 PM
[2024-06-21 22:48] LABS: AST 37 U/L (17-59); Alkaline Phosphatase 107 U/L (38-126); Magnesium 2.1 mg/dL (1.6-2.3); Potassium 4.5 mmol/L (3.5-5.1)
[2024-06-21] MEDS: HYDROmorphone 1 MG/ML 1 ML SYRINGE IVP STA (23:09)
[2024-06-22] MEDS ORDERED: NALOXONE 0.4 MG/ML 1 ML VIAL IV PRN (00:09)
[2024-06-22] MEDS: HYDROmorphone 1 MG/ML 1 ML SYRINGE IVP STA (00:13)
[2024-06-22] MEDS: HYDROmorphone 0.5 MG/0.5 ML SYRINGE IVP PRN (04:55)
[2024-06-22] MEDS: SODIUM CHLORIDE 0.9% 1,000 ML IV SCH ×2 (04:58→09:21)
[2024-06-22] MEDS: SODIUM CHLORIDE 0.9% 500 ML 500 ML IV ONE ×2 (08:21→10:56)
[2024-06-22] MEDS: MIDODRINE 5 MG TAB PO SCH (10:24)
[2024-06-22] MEDS: ACETAMINOPHEN IV (For NPO) 1,000 MG in EMPTY BAG 1 BAG IVPB SCH (11:32)
[2024-06-22 11:55] LABS: Glucose,Whole Blood 77 mg/dL (70-110)
[2024-06-22] MEDS: PIPERACILLIN-TAZOBACTAM 3.375 GM in SODIUM CHLORIDE 0.9% 100 ML IVPB SCH (12:18)
[2024-06-22] MEDS: VANCOMYCIN 1,000 MG in SODIUM CHLORIDE 0.9% 250 ML IVPB SCH (12:19)
--- NOTE | 2024-06-22 14:29 | P.HPIM ---
History of Present Illness H&P Date: 06/22/24 Patient is a 59-year-old male with a PMH of esophageal cancer (with radiation and chemo last done on 08/05 at [facility]), laryngeal cancer presenting with generalized weakness and sore throat. Patient has tracheostomy and PEG tube. His family called for wellness check, and was brought in to [facility]. Patient is nonverbal and communicates by writing. He states that his family was worried about his immunomodulator infusion pump was causing him to have adverse reaction. Device is currently off. He states he has a sore throat and noticed an increase amount of thick yellow secretions from his trach tube. Patient denies chest pain, fever, chills, abdominal pain, nausea. Patient states he has not significant pain as well and requested Dilaudid in the ED. Patient is frequently hospitalized here in the past. Last hospitalization here was a week and a half ago. EKG independently interpreted displays sinus rhythm, rate 73 bpm, QTc 460 ms CXR independently interpreted displays chronic changes without new acute pulmonary process proBNP 1140 WBC 8.6, Hgb 11.1, platelet 457, PT 11.0, INR 1.0, APTT 29, BUN 29, creatinine 0.68 T 98.6 F, MS 77, RR 18, BP 82/48, O2 sat 98% trach collar flow rate of 5 ED documentation reviewed. Review of systems: Pertinent positives and negatives as discussed in HPI, a complete review of systems was performed and all other systems are negative. Social history: Tobacco: Former smoker Alcohol: Denies alcohol use Recreational drugs: Denies illicit drug use Physical examination: Vital signs reviewed General: non toxic, no distress, appears at stated age, normal weight, unable to speak in full sentences Derm: no unusual rashes/lesions, warm Head: atraumatic, normocephalic, symmetric Eyes: EOMI, anicteric sclera, pupils equal round reactive to light ENT: Nose and ears atraumatic Neck: No cervical lymphadenopathy, trachea midline, supple Mouth: no lip lesion, mucus membranes moist Cardiovascular: S1S2 reg, no murmur, positive dorsalis pedis pulse bilateral, no edema Lungs: CTA bilateral, no rhonchi, no rales, no accessory muscle use Abdominal: soft, nontender to palpation, no guarding Ext: muscle strength 5 out of 5 in all 4 extremities grossly, no gross muscle atrophy Neuro: CN II-XI grossly intact, no gross focal neuro deficits Psych: Alert, oriented to person, place, and time Assessment/Plan: Patient is a 59-year-old male with a PMH of esophageal cancer, laryngeal cancer presenting with generalized weakness and sore throat. #. Hypotension Hold any antihypertensive medications Was given 1 L l normal saline bolus by ED x 2 Was given 1 L NS bolus on floor Normal saline 75 cc/HR Midodrine 10 mg p.o. 3 times daily #. Suspected pneumonia Currently on 20% FiO2 on trach collar Trach tube displayed thick yellow secretions PEG tube in place CXR independently interpreted shows chronic changes, no acute pulmonary p rocess Thick sputum secretion from tracheostomy tube Humidify secretions Sputum culture ordered Procalcitonin ordered Blood cultures pending Empiric antibiotic coverage vancomycin IVPB dosed by pharmacy, Zosyn 3.375g IVPB every 8hr Infectious disease consulted Pulmonology following. #. Normocytic anemia #. Thrombocytosis #. History of cancer Hgb 11.1, MCV 96.7, platelet 457, likely of chronic disease from cancer Follow-up CBC Hematology consulted #. Sore throat Pain management: Has been given 2 mg of Dilaudid IVP by ED 0.5 mg IVP Q HR as needed F: Normal saline 75 cc/HR E: Replete electrolytes as needed N: Enteral tube feeding, dietitian following A: PT/OT consult DVT prophylaxis: Lovenox 40 SQ The patient is admitted with an anticipated greater than than 2 midnight stay for evaluation of pneumonia. CODE STATUS: Full code Discussed with: Patient Anticipated discharge place: Home/rehab Attestation I have seen and examined this patient with my resident , discussed the same with the resident/ERNESTINE, and agree with the dictator's assessment and plan as written Dr. Dannie william Past Medical History Past Medical History: Cancer, COPD, Syncope, Thyroid Disorder Additional Past Medical History / Comment(s): Graves disease, diverticulosis, es ophageal cancer with radiation and chemo-last 08/05 at [facility],. was [place] [facility] [place] and is in [facility] ICU to cauterize artery going through tumor in throat; laryngeal CA History of Any Multi-Drug Resistant Organisms: None Reported Past Surgical History: Tonsillectomy Additional Past Surgical History / Comment(s): vasectomy, biopsy of throat, trach, PEG tube, cauterization of tumor at [facility] 05/2024 Past Anesthesia/Blood Transfusion Reactions: No Reported Reaction Past Psychological History: No Psychological Hx Reported Smoking Status: Former smoker Past Alcohol Use History: None Reported Past Drug Use History: None Reported - Past Family History Father History Unknown: Yes Family Medical History: Diabetes Mellitus Medications and Allergies Home Medications Medication Instructions Recorded Confirmed Type No Known Home Medications 06/22/24 06/22/24 History Allergies Allergy/AdvReac Type Severity Reaction Status Date / Time No Known Allergies Allergy Verified 06/22/24 10:29 Physical Exam Vitals: Vital Signs Temp Pulse Pulse Resp BP BP BP 06/22/24 14:00 95/55 06/22/24 13:08 64 06/22/24 12:32 89/55 06/22/24 12:13 98.0 F 64 22 90/53 06/22/24 11:30 89/55 06/22/24 11:10 94/57 06/22/24 10:48 84/49 06/22/24 10:46 24 06/22/24 10:38 72/46 06/22/24 10:17 98.0 F 64 24 90/49 06/22/24 09:41 79/39 06/22/24 09:25 79/39 06/22/24 09:16 06/22/24 08:40 93/51 06/22/24 08:21 70 20 87/49 06/22/24 08:15 67 79/39 06/22/24 08:00 70/45 06/22/24 07:36 97.0 F L 69 17 80/44 06/22/24 07:30 82 20 80/44 06/22/24 01:28 97.9 F 75 15 142/83 06/22/24 00:56 66 18 127/82 06/22/24 00:10 66 18 102/64 06/22/24 00:05 77 18 83/59 06/21/24 22:58 82 18 96/51 06/21/24 21:55 18 06/21/24 21:48 98.6 F 77 18 82/48 Pulse Ox FiO2 06/22/24 14:00 06/22/24 13:08 06/22/24 12:32 06/22/24 12:13 100 06/22/24 11:30 06/22/24 11:10 06/22/24 10:48 06/22/24 10:46 06/22/24 10:38 06/22/24 10:17 100 06/22/24 09:41 06/22/24 09:25 06/22/24 09:16 92 L 28 06/22/24 08:40 06/22/24 08:21 92 L 06/22/24 08:15 95 06/22/24 08:00 06/22/24 07:36 96 06/22/24 07:30 06/22/24 01:28 99 06/22/24 00:56 97 06/22/24 00:10 97 06/22/24 00:05 97 06/21/24 22:58 95 06/21/24 21:55 06/21/24 21:48 98 Intake and Output 06/21/24 06/22/24 06/22/24 22:59 06:59 14:59 Output Total 425 Balance -425 Output: Urine 425 Other: Voiding Method Urinal Weight 52.163 kg 52.163 kg 52.163 kg Results CBC & Chem 7: 06/23/24 07:33 06/23/24 07:33 Labs: Abnormal Lab Results - Last 24 Hours (Table) 06/21/24 06/21/24 Range/Units 21:54 21:54 RBC 3.78 L (4.30-5.90) m/uL Hgb 11.1 L (13.0-17.5) gm/dL Hct 36.6 L (39.0-53.0) % MCHC 30.3 L (31.0-37.0) g/dL RDW 16.1 H (11.5-15.5) % Plt Count 457 H (150-450) k/uL Lymphocytes # 0.4 L (1.0-4.8) k/uL BUN 29 H (9-20) mg/dL Thrombosis Risk Factor Assmnt - Choose All That Apply Any of the Below Risk Factors Present?: Yes Each Factor Represents 1 point: Age 41-60 years Other Risk Factors: Yes Each Risk Factor Represents 2 Points: Major surgery Thrombosis Risk Factor Assessment Total Risk Factor Score: 3 Thrombosis Risk Factor Assessment Level: Moderate Risk
--- NOTE | 2024-06-22 15:06 | P.CNPUL ---
History of Present Illness Consult date: 06/22/24 Requesting physician: Ronny Johns Reason for consult: dyspnea Chief complaint: Throat pain History of present illness: This is a pleasant 59-year-old male patient with a known history of laryngeal cancer with previous chemoradiation, tracheostomy tube placement, PEG tube placement, chronic tobacco dependence, hypothyroidism, Graves' disease, diverticulosis. A recent PET scan from March 30, 2024 revealed progression of disease with uptake just above the level of the tracheostomy cannula which is increased in both size and metabolic activity. Uptake along the pleural on the right previous infection in this region. There is a ball-like uptake within an area of consolidation possibly representing metastatic nodule versus local infection. He had been seen here in April 2024 for hemoptysis. He ended up requiring cauterization that was performed at [facility] in [place] by Dr. Morales. He was brought into the emergency room last evening by EMS after family had called for wellness check. The patient stated he was having throat pain and was requesting Dilaudid. Chest x-ray revealed chronic changes but no acute pulmonary process. White count 8.6. Hemoglobin 11.1. Platelets 457. INR 1.0. Sodium 137. Potassium 4.5. Bicarb 28. BUN 29. Creatinine 0.68. Glucose 93. He is seen today in consultation on the selective care unit. He is currently sitting up in bed. Awake and alert in no acute distress. He denies any worsening shortness of breath, cough or congestion. No hemoptysis. He is maintaining good O2 saturations in the high 90s on 28% FiO2 via trach collar. He has been initiated on vancomycin and Zosyn. Normal saline at 75 mL/h. He is receiving nourishment with TwoCal HN at 10 mL/h with a goal of 38. Review of Systems REVIEW OF SYSTEMS: CONSTITUTIONAL: Denies any recent significant weight loss or weight gain. EYES: Denies change in vision. EARS, NOSE, MOUTH, THROAT: Positive for throat pain, tracheostomy in place. CARDIOVASCULAR: Denies chest pain, palpitations or syncopal episodes. RESPIRATORY: Denies shortness of breath, cough, congestion or hemoptysis. GASTROINTESTINAL: Denies change in appetite, denies abdominal pain GENITOURINARY: Denies hematuria, denies infections. MUSKULOSKELETAL: Denies pain, denies swelling. INTEGUMENTARY: Denies rash, denies eczema. NEUROLOGICAL: Denies recent memory loss, no recent seizure activity. PSYCHIATRIC: Denies anxiety, denies depression. HEMATOLOGIC/LYMPHATIC: Denies anemia, denies enlarged lymph nodes. Past Medical History Past Medical History: Cancer, COPD, Syncope, Thyroid Disorder Additional Past Medical History / Comment(s): Graves disease, diverticulosis, esophageal cancer with radiation and chemo-last 08/05 at [facility],. [place] [facility] [place] and is in [facility] ICU to cauterize artery going through tumor in throat; laryngeal CA History of Any Multi-Drug Resistant Organisms: None Reported Past Surgical History: Tonsillectomy Additional Past Surgical History / Comment(s): vasectomy, biopsy of throat, trach, PEG tube, cauterization of tumor at [facility] 05/2024 Past Anesthesia/Blood Transfusion Reactions: No Reported Reaction Past Psychological History: No Psychological Hx Reported Smoking Status: Former smoker Past Alcohol Use History: None Reported Past Drug Use History: None Reported - Past Family History Father History Unknown: Yes Family Medical History: Diabetes Mellitus Medications and Allergies Home Medications Medication Instructions Recorded Confirmed Type No Known Home Medications 06/22/24 06/22/24 History Allergies Allergy/AdvReac Type Severity Reaction Status Date / Time No Known Allergies Allergy Verified 06/22/24 10:29 Physical Exam Vitals: Vital Signs Temp Pulse Pulse Resp BP BP BP 06/22/24 14:28 84/47 06/22/24 14:00 95/55 06/22/24 13:08 64 06/22/24 12:32 89/55 06/22/24 12:13 98.0 F 64 22 90/53 06/22/24 11:30 89/55 06/22/24 11:10 94/57 06/22/24 10:48 84/49 06/22/24 10:46 24 06/22/24 10:38 72/46 06/22/24 10:17 98.0 F 64 24 90/49 06/22/24 09:41 79/39 06/22/24 09:25 79/39 06/22/24 09:16 06/22/24 08:40 93/51 06/22/24 08:21 70 20 87/49 06/22/24 08:15 67 79/39 06/22/24 08:00 70/45 06/22/24 07:36 97.0 F L 69 17 80/44 06/22/24 07:30 82 20 80/44 06/22/24 01:28 97.9 F 75 15 142/83 06/22/24 00:56 66 18 127/82 06/22/24 00:10 66 18 102/64 06/22/24 00:05 77 18 83/59 06/21/24 22:58 82 18 96/51 06/21/24 21:55 18 06/21/24 21:48 98.6 F 77 18 82/48 Pulse Ox FiO2 06/22/24 14:28 06/22/24 14:00 06/22/24 13:08 06/22/24 12:32 06/22/24 12:13 100 06/22/24 11:30 06/22/24 11:10 06/22/24 10:48 06/22/24 10:46 06/22/24 10:38 06/22/24 10:17 100 06/22/24 09:41 06/22/24 09:25 06/22/24 09:16 92 L 28 06/22/24 08:40 06/22/24 08:21 92 L 06/22/24 08:15 95 06/22/24 08:00 06/22/24 07:36 96 06/22/24 07:30 06/22/24 01:28 99 06/22/24 00:56 97 06/22/24 00:10 97 06/22/24 00:05 97 06/21/24 22:58 95 06/21/24 21:55 06/21/24 21:48 98 Intake and Output 06/21/24 06/22/24 06/22/24 22:59 06:59 14:59 Output Total 425 Balance -425 Output: Urine 425 Other: Voiding Method Urinal Weight 52.163 kg 52.163 kg 52.163 kg GENERAL EXAM: Alert, thin, disheveled 59-year-old male, on 28% FiO2 via trach collar, comfortable in no apparent distress. HEAD: Normocephalic. EYES: Normal reaction of pupils, equal size. NOSE: Clear with pink turbinates. THROAT: No erythema or exudates. NECK: No masses, no JVD. Tracheostomy tube secured in place. CHEST: No chest wall deformity. LUNGS: Equal air entry with no crackles, wheeze, rhonchi or dullness. CVS: S1 and S2 normal with no audible murmur, regular rhythm. ABDOMEN: PEG tube exit site clean and dry. No hepatosplenomegaly, normal bowel sounds, no guarding or rigidity. SPINE: No scoliosis or deformity SKIN: No rashes CENTRAL NERVOUS SYSTEM: No focal deficits, tone is normal in all 4 extremities. EXTREMITIES: There is no peripheral edema. No clubbing, no cyanosis. Peripheral pulses are intact. Results - Laboratory Findings CBC and BMP: 06/21/24 21:54 06/21/24 21:54 PT/INR, D-dimer PT 11.0 sec (10.0-12.5) 06/21/24 21:54 INR 1.0 (<1.2) 06/21/24 21:54 Abnormal lab findings: Abnormal Labs 06/21/24 06/21/24 21:54 21:54 RBC 3.78 L Hgb 11.1 L Hct 36.6 L MCHC 30.3 L RDW 16.1 H Plt Count 457 H Lymphocytes # 0.4 L BUN 29 H - Diagnostic Findings Chest x-ray: image reviewed Assessment and Plan Assessment: Throat pain in a patient with a history of laryngeal cancer with previous chemoradiation. Tracheostomy and PEG tubes placed. PET scan from March 2024 s howing progression Recent admission for hemoptysis requiring transfer to [facility] in [place] for cauterization by ENT Dr. Morales in May 2024 History of large right-sided hydropneumothorax with previous chest tube insertion and subsequent removal in December 2023 Masslike consolidation in the right midlung dating back to November 2023 Chronic and ongoing tobacco dependence Hypothyroidism Chronic obstructive pulmonary disease Plan: The patient was seen and evaluated Chest x-ray, labs and medications reviewed Currently stable on 28% FiO2 via trach collar Receiving nourishment via PEG tube with TwoCal HN Currently on vancomycin and Zosyn Check a procalcitonin Dilaudid and [place] for throat pain Medical oncology consulted We will continue to follow and make further recommendations based on his clinical status I have personally seen and examined the patient, performed the documentation and the assessment and plan as written. Number of minutes spent on the visit: 20.
[2024-06-22] MEDS: METOCLOPRAMIDE 5 MG/ML 2 ML VIAL IVP SCH (15:47)
[2024-06-22] MEDS: ALPRAZolam 0.25 MG TAB PO PRN (16:29)
[2024-06-22 19:33] LABS: Glucose,Whole Blood 82 mg/dL (70-110)
[2024-06-22] MEDS: VANCOMYCIN IV PER PHARMACY 1 EACH MISC MISCELLANE SCH (22:31)
[2024-06-22 23:38] LABS: Glucose,Whole Blood 75 mg/dL (70-110)
[2024-06-23] MEDS: HYDROcodone/APAP 5-325MG 1 EACH TAB PO PRN (02:51)
[2024-06-23 03:11] VITALS: RESP 20
[2024-06-23 06:21] LABS: Glucose,Whole Blood 85 mg/dL (70-110)
[2024-06-23] MEDS: ENOXAPARIN 40 MG/0.4 ML SYRINGE SQ SCH (07:48)
[2024-06-23 09:10] LABS: Anisocytosis Slight; Basophils % (A) 0 %; Eosinophils # (A) 0.1 k/uL (0-0.7); Eosinophils % (A) 1 %; HCT 34.8 % (39.0-53.0); HGB 10.5 gm/dL (13.0-17.5); Hypochromasia Marked; Lymphocytes # (A) 0.5 k/uL (1.0-4.8); Lymphocytes % (A) 6 %; MCH 29.8 pg (25.0-35.0); MCHC 30.1 g/dL (31.0-37.0); MCV 99.1 fL (80.0-100.0); Macrocytosis Slight; Mean Platelet Volume 7.7; Monocytes # (A) 0.1 k/uL (0-1.0); Monocytes % (A) 2 %; Neutrophils # (A) 8.1 k/uL (1.3-7.7); Neutrophils % (A) 91 %; Platelet Count 395 k/uL (150-450); RBC 3.52 m/uL (4.30-5.90); RDW 16.1 % (11.5-15.5); WBC 8.9 k/uL (3.8-10.6)
[2024-06-23 09:29] LABS: ALT 15 U/L (4-49); AST 22 U/L (17-59); African American GFR (CKD) >90 (>60 ml/min/1.73 sqM); Albumin 2.6 g/dL (3.5-5.0); Alkaline Phosphatase 96 U/L (38-126); Anion Gap 9 mmol/L; Blood Urea Nitrogen 15 mg/dL (9-20); Calcium 7.9 mg/dL (8.4-10.2); Carbon Dioxide 22 mmol/L (22-30); Chloride 107 mmol/L (98-107); Glucose 67 mg/dL (74-99); Non-African American GFR(CKD) >90 (>60 ml/min/1.73 sqM); Potassium 3.6 mmol/L (3.5-5.1); Sodium 138 mmol/L (137-145); Total Bilirubin 0.5 mg/dL (0.2-1.3)
[2024-06-23 11:07] LABS: Glucose,Whole Blood 73 mg/dL (70-110)
[2024-06-23] MEDS ORDERED: SODIUM CHLORIDE 0.9% 500 ML 500 ML IV ONE (11:07)
--- NOTE | 2024-06-23 11:38 | P.PN ---
Subjective Progress Note Date: 06/23/24 Principal diagnosis: Pain. This is a pleasant 59-year-old male patient with a known history of laryngeal cancer with previous chemoradiation, tracheostomy tube placement, PEG tube placement, chronic tobacco dependence, hypothyroidism, Graves' disease, diverticulosis. A recent PET scan from March 30, 2024 revealed progression of disease with uptake just above the level of the tracheostomy cannula which is increased in both size and metabolic activity. Uptake along the pleural on the right previous infection in this region. There is a ball-like uptake within an area of consolidation possibly representing metastatic nodule versus local infection. He had been seen here in April 2024 for hemoptysis. He ended up requiring cauterization that was performed at [facility] in [place] by Dr. Morales. He was brought into the emergency room last evening by EMS after family had called for wellness check. The patient stated he was having throat pain and was requesting Dilaudid. Chest x-ray revealed chronic changes but no acute pulmonary process. White count 8.6. Hemoglobin 11.1. Platelets 457. INR 1.0. Sodium 137. Potassium 4.5. Bicarb 28. BUN 29. Creatinine 0.68. Glucose 93. He is seen today in consultation on the selective care unit. He is currently sitting up in bed. Awake and alert in no acute distress. He denies any worsening shortness of breath, cough or congestion. No hemoptysis. He is maintaining good O2 saturations in the high 90s on 28% FiO2 via trach collar. He has been initiated on vancomycin and Zosyn. Normal saline at 75 mL/h. He is receiving nourishment with TwoCal HN at 10 mL/h with a goal of 38. Progress note dated June 23, 2024. 59-year-old male well-known to our service. The patient has a history of laryngeal carcinoma, with previous chemoradiation, and tracheostomy. The patient is seen today in room 363. He is on a 28% trach collar, although he is not wearing the oxygen. The patient is also getting saline at 75 cc an hour. Tube feedings are currently on hold. The patient has no specific complaints today. Labs include a white count 8.9, hemoglobin 10.5, hematocrit 34.8, and a platelet count of 395,000. Sodium 138, potassium 3.6, chlorides 107, CO2 22, BUN 15, creatinine 0.66. Albumin is 2.6. Procalcitonin level is 0.13. Chest x-ray only showed chronic changes, but nothing acute. Objective - Vital Signs Vital signs: Vital Signs Temp 97.8 F 06/23/24 07:42 Pulse 67 06/23/24 07:42 Resp 20 06/23/24 07:42 BP 93/56 06/23/24 08:17 Pulse Ox 97 06/23/24 07:42 FiO2 28 06/23/24 10:00 Intake & Output 06/22/24 06/23/24 06/23/24 18:59 06:59 18:59 Intake Total 1050 Output Total 425 400 Balance -425 1050 -400 Weight 52.163 kg 50 kg 50 kg Intake: Intake, IV Titration 1050 Amount ACETAMINOPHEN IV (For NPO 100 ) 1,000 mg In Empty Bag 1 bag @ 400 mls/hr IVPB Q8HR CLAUDY Rx#:[id number] Piperacillin-Tazobactam 3 100 .375 gm In Sodium Chloride 0.9% 100 ml @ 25 mls/hr IVPB Q8H CLADUY Rx#: [id number] Sodium Chloride 0.9% 1, 600 000 ml @ 75 mls/hr IV . [id number] CLAUDY Rx#:[id number] Vancomycin 1,000 mg In 250 Sodium Chloride 0.9% 250 ml @ 125 mls/hr IVPB Q12H CLAUDY Rx#:[id number] Oral 0 Tube Feeding 0 Other 0 Output: Urine 425 400 Other: Voiding Method Urinal Urinal Urinal # Voids 1 # Bowel Movements 1 - Exam No acute distress, oriented 3. Currently not on his trach collar. HEENT examination is grossly unremarkable. Mucous membranes are moist. No oral lesions. Neck supple. Full range of motion. No adenopathy thyromegaly or neck vein distention. Tracheostomy tube noted. Cardiovascular examination reveals regular rhythm rate. S1-S2 normal. No S3 or S4. No discernible murmur noted. Lungs reveal minimal bilateral rhonchi. No wheezes or crackles. Breath sounds equal. Abdomen soft bowel sounds are heard. No masses or tenderness. Extremities are intact. No cyanosis clubbing or edema. Skin is without rash or lesion. Neurologic examination is brief but nonfocal. - Labs CBC & Chem 7: 06/23/24 07:33 06/23/24 07:33 Labs: Abnormal Lab Results - Last 24 Hours (Table) 06/23/24 06/23/24 Range/Units 07:33 07:33 RBC 3.52 L (4.30-5.90) m/uL Hgb 10.5 L (13.0-17.5) gm/dL Hct 34.8 L (39.0-53.0) % MCHC 30.1 L (31.0-37.0) g/dL RDW 16.1 H (11.5-15.5) % Neutrophils # 8.1 H (1.3-7.7) k/uL Lymphocytes # 0.5 L (1.0-4.8) k/uL Glucose 67 L (74-99) mg/dL Calcium 7.9 L (8.4-10.2) mg/dL Total Protein 5.0 L (6.3-8.2) g/dL Albumin 2.6 L (3.5-5.0) g/dL Assessment and Plan Assessment: Throat pain in a patient with a history of laryngeal cancer with previous chemoradiation. Tracheostomy and PEG tubes placed. PET scan from March 2024 showing progression. Recent admission for hemoptysis requiring transfer to [facility] in [place] for cauterization by ENT Dr. Morales in May 2024. History of large right-sided hydropneumothorax with previous chest tube insertion and subsequent removal in December 2023. Masslike consolidation in the right midlung dating back to November 2023. Chronic and ongoing tobacco dependence. Hypothyroidism. Chronic obstructive pulmonary disease. Plan: Plan dated June 23, 2024. The patient appears relatively stable. Not quite sure why the patient was admitted. His procalcitonin level was normal. Antibiotics can be discontinued. The patient should resume tube feedings. In my opinion, the patient is at baseline, and can be considered for possible discharge. The patient's overall prognosis is poor. Additional recommendations and suggestions are forthcoming. Labs, x-rays, and medications are reviewed. Time with Patient: Less than 30
--- NOTE | 2024-06-23 15:00 | P.PN ---
Subjective Progress Note Date: 06/23/24 Hospital course Patient is a 59-year-old male with a PMH of esophageal cancer (with radiation and chemo last done on 08/05 at [facility]), laryngeal cancer presenting with generalized weakness and sore throat. Patient has tracheostomy and PEG tube. His family called for wellness check, and was brought in to [facility]. Patient is nonverbal and communicates by writing. He states that his family was worried about his immunomodulator infusion pump was causing him to have adverse react ion. Device is currently off. He states he has a sore throat and noticed an increase amount of thick yellow secretions from his trach tube. Patient denies chest pain, fever, chills, abdominal pain, nausea. Patient states he has not significant pain as well and requested Dilaudid in the ED. Patient is frequently hospitalized here in the past. Last hospitalization here was a week and a half ago. 06/23/2024: Patient seen and examined at bedside. Patient states throat is still in a lot of pain and is requesting more pain medication. Was seen by hospice yesterday however did not seem interested in pursuing hospice. Less secretions coming out of his trach tube. Has not been tolerating PEG tube feeding. Tube feeding was paused overnight. Pertinent positives and negatives as discussed above, a complete review of systems was performed and all other systems are negative. Vitals: Signs Reviewed Physical Exam: General: Deconditioned no distress, does not appear at stated age Derm: warm, dry, intact Head: atraumatic, normocephalic, symmetric Eyes: EOMI, anicteric sclera Mouth: no lip lesion, mucus membranes moist Cardiovascular: S1 S2 reg, no murmur, rubs, or gallops Lungs: CTA bilateral, no rhonchi, no rales, no accessory muscle use Abdominal: soft, non-tender to palpataion, no appreciable organomegaly Extremities: no gross muscle atrophy, no edema, no contractures Neuro: Alert, Oriented, CNII-XII grossly intact, gait normal Psych: well appearing, appropriate affect Data Received Today: Pertinent Labs: Procalcitonin 0.13, WBC 8.9, Hgb 10.5, platelet 395, glucose 67, calcium 7.9, BUN 15, creatinine 0.66 Imaging: No pertinent imaging. Assessment and Plan: Patient is a 59-year-old male with a PMH of esophageal cancer, laryngeal cancer presenting with generalized weakness and sore throat. #. Hypotension Hold any antihypertensive medications Was given 1 L l normal saline bolus by ED x 2 Was given 1 L NS bolus on floor Normal saline 75 cc/HR Midodrine 10 mg p.o. 3 times daily #. Suspected pneumonia, less likely Currently on 20% FiO2 on trach collar Trach tube displayed thick yellow secretions PEG tube in place CXR independently interpreted shows chronic changes, no acute pulmonary process Thick sputum secretion from tracheostomy tube Patient denying humidifying secretions Patient has not been tolerating PEG tube feeds, was discontinued last night, placed on Reglan 10 mg IVP every 6 hours Sputum culture pending Procalcitonin 0.13 WNL Blood cultures pending IV antibiotics discontinued due to no signs of infection Dietary consulted Infectious disease consulted Pulmonology note reviewed. Procalcitonin within normal limit, patient can be discontinued off antibiotics. Patient at baseline. Cleared by pulmonology. #. Normocytic anemia #. Thrombocytosis #. History of cancer Hgb 11.1, MCV 96.7, platelet 457, likely of chronic disease from cancer Follow-up CBC Hematology consulted #. Sore throat Pain management: Has been given 2 mg of Dilaudid IVP by ED 0.5 mg IVP Q HR as needed F: Normal saline 75 cc/HR E: Replete electrolytes as needed N: Enteral tube feeding, dietitian following A: PT/OT consult DVT prophylaxis: Lovenox 40 SQ The patient is admitted with an anticipated greater than than 2 midnight stay f or evaluation of pneumonia. CODE STATUS: Full code Discussed with: Patient Anticipated discharge place: Home/rehab Attestation I have seen and examined this patient with my resident , discussed the same with the resident/ERNESTINE, and agree with the dictator's assessment and plan as written Dr. Dannie william Objective - Vital Signs Vital signs: Vital Signs Temp 97.6 F 06/23/24 11:18 Pulse 63 06/23/24 13:03 Resp 20 06/23/24 11:18 BP 89/59 06/23/24 14:21 Pulse Ox 96 06/23/24 11:18 FiO2 28 06/23/24 10:00 Intake & Output 06/22/24 06/23/24 06/23/24 18:59 06:59 18:59 Intake Total 1050 Output Total 425 400 Balance -425 1050 -400 Weight 52.163 kg 50 kg 50 kg Intake: Intake, IV Titration 1050 Amount ACETAMINOPHEN IV (For NPO 100 ) 1,000 mg In Empty Bag 1 bag @ 400 mls/hr IVPB Q8HR CLAUDY Rx#:[id number] Piperacillin-Tazobactam 3 100 .375 gm In Sodium Chloride 0.9% 100 ml @ 25 mls/hr IVPB Q8H CLAUDY Rx#: [id number] Sodium Chloride 0.9% 1, 600 000 ml @ 75 mls/hr IV . [id number] CLAUDY Rx#:[id number] Vancomycin 1,000 mg In 250 Sodium Chloride 0.9% 250 ml @ 125 mls/hr IVPB Q12H CLAUDY Rx#:[id number] Oral 0 Tube Feeding 0 Other 0 Output: Urine 425 400 Other: Voiding Method Urinal Urinal Urinal # Voids 1 # Bowel Movements 1 - Labs CBC & Chem 7: 06/24/24 06:10 06/24/24 06:10 Labs: Abnormal Lab Results - Last 24 Hours (Table) 06/23/24 06/23/24 Range/Units 07:33 07:33 RBC 3.52 L (4.30-5.90) m/uL Hgb 10.5 L (13.0-17.5) gm/dL Hct 34.8 L (39.0-53.0) % MCHC 30.1 L (31.0-37.0) g/dL RDW 16.1 H (11.5-15.5) % Neutrophils # 8.1 H (1.3-7.7) k/uL Lymphocytes # 0.5 L (1.0-4.8) k/uL Glucose 67 L (74-99) mg/dL Calcium 7.9 L (8.4-10.2) mg/dL Total Protein 5.0 L (6.3-8.2) g/dL Albumin 2.6 L (3.5-5.0) g/dL
[2024-06-23 16:15] LABS: Glucose,Whole Blood 76 mg/dL (70-110)
[2024-06-23 23:30] LABS: Glucose,Whole Blood 100 mg/dL (70-110)
[2024-06-24 06:07] LABS: Glucose,Whole Blood 98 mg/dL (70-110)
[2024-06-24 06:52] LABS: Anisocytosis Slight; Basophils % (A) 0 %; Eosinophils # (A) 0.2 k/uL (0-0.7); Eosinophils % (A) 2 %; HCT 36.8 % (39.0-53.0); Hypochromasia Marked; Lymphocytes # (A) 0.5 k/uL (1.0-4.8); Lymphocytes % (A) 6 %; MCH 29.4 pg (25.0-35.0); MCHC 29.9 g/dL (31.0-37.0); MCV 98.1 fL (80.0-100.0); Macrocytosis Slight; Mean Platelet Volume 7.7; Monocytes # (A) 0.2 k/uL (0-1.0); Monocytes % (A) 2 %; Neutrophils # (A) 7.3 k/uL (1.3-7.7); Neutrophils % (A) 89 %; Platelet Count 416 k/uL (150-450); RBC 3.75 m/uL (4.30-5.90); RDW 16.1 % (11.5-15.5); WBC 8.2 k/uL (3.8-10.6)
[2024-06-24 07:46] LABS: ALT 14 U/L (4-49); AST 22 U/L (17-59); African American GFR (CKD) >90 (>60 ml/min/1.73 sqM); Albumin 2.8 g/dL (3.5-5.0); Alkaline Phosphatase 92 U/L (38-126); Anion Gap 3 mmol/L; Blood Urea Nitrogen 16 mg/dL (9-20); Calcium 8.4 mg/dL (8.4-10.2); Carbon Dioxide 29 mmol/L (22-30); Chloride 106 mmol/L (98-107); Glucose 100 mg/dL (74-99); Non-African American GFR(CKD) >90 (>60 ml/min/1.73 sqM); Potassium 3.5 mmol/L (3.5-5.1); Sodium 138 mmol/L (137-145); Total Bilirubin 0.3 mg/dL (0.2-1.3); Total Protein 5.2 g/dL (6.3-8.2)
--- NOTE | 2024-06-24 09:17 | P.CONS ---
History of Present Illness - Reason for Consult Consult date: 06/24/24 larygeal cancer Requesting physician: Cathie Churchill - Chief Complaint throat pain, fatigue - History of Present Illness Mr Alva is a male pt of Dr. Moreira who initially presented to his PCP, with sore throat and hoarseness, symptoms present for about 3-4 years, but had become much more prominent and progressive in early 2022. CT neck 03/09/23 showed a 2.3 cm supraglottic mass on the right, with a right neck node measuring 3.1 cm at level III. PET scan 03/25/23 showed uptake in the primary lesion, as well as uptake in a level IIA and a level III node on the right. ENT evaluated and recommended biopsy. The patient did not return to ENT initially as he did not think he needed a biopsy to start treatment. He was seen by Radiation Oncology initially on 04/13/23 and was referred back to ENT. 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 Malignancy was present on biopsy from the right supraglottis and the right hypopharynx. Tumor was p16 negative. The patient was then referred to Hem Onc for treatment recommendations for concurrent chemoradiation. He had a long-standing history of smoking about 1.5 packs a day for 30+ years. Since 03/05, he has cut down to about half pack a day. He drinks about 3 beers and one drink of hard liquor daily. Started chemoradiation with weekly cisplatin. After the first chemotherapy treatment on 05/13/23, he was admitted to the hospital because of progressive difficulty in breathing. He had to have a tracheostomy placed, and also had a PEG tube placed because he subsequently failed a swallow test. He resumed radiation on 06/01/23, completed 6 wkly Cisplatin cycles on 07/05/23, and subsequently radiation in the first week of 08/05. He had a complicated medical course starting Sep 2023. Treatment f/u PET 10/06 had shown some uptake in the area of the right vocal cord, as well as in an opacity in the right lung base. The patient was referred to pulmonary medicine, who discussed a bronchoscopy. He was reluctant for the same and ultimately decided to repeat a CT scan to follow-up the lung nodule in 3 months. He did see ENT Oncology and had a biopsy of the right vocal cord area, showing recurrent malignancy. He was admitted late 12/04 with a right lung pneumonia. Imaging at this time showed a heterogenous mass with cystic and necrotic component with bronchoscopy done on 12/09/23 being negative for malignancy. the patient appeared to have a necrotizing pneumonia, with underlying malignancy not ruled out. As he was not responding well to aggressive treatment for pneumonia but, elected to go on hospice. He developed hemoptysis at home, and came back to the hospital, changing his CODE STATUS to full code. Follow-up CT now showed large right-sided hydropneumothorax and the consolidative changes in the right midlung with additional areas of cavitation in the previously noted consolidation in the right lung base. He had a right-sided chest tube placed with drainage of fluid, that came back negative for malignancy. He was admitted to the hospital, and treated aggressively for pneumonia, as his sputum cultures had been positive for Klebsiella and Burkholderia. He had gradual improvement. He had replacement and removal of catheters in the right chest cavity. He was then seen at [facility] and had a VATS with Dr. Herrmann showing no evidence of malignancy, or significant residual fluid/infection. The patient continued to improve in terms of some increase in then stabilization of weight. He had follow-up CT scan on 03/10/24. This showed decreasing size of the right pleural empyema with [id number] emphysematous changes. There was no evidence of any malignant-appearing lung nodules or adenopathy. The case was discussed with Pulmonary medicine at this point. They felt that the right lower lung findings most likely represented infection, and not malignancy. Therefore a PET scan was ordered and the patient referred back here. The PET scan on 03/30/24 showed uptake along the right-sided pleura anteriorly and posteriorly and some focal uptake near the aortic valve. The uptake in the neck above the tracheostomy was more prominent, and larger, extending circumferentially around the larynx and possibly within the esophagus. He was seen about 4 weeks ago in [facility]. Results of the PET scan were discussed. He was advised that if the findings and the right lung represent sequelae of infection, then at this time he appears to have possibly localize recurrence in the laryngeal area. In that situation he could potentially be a candidate for definitive treatment involving radical surgery, and possibly additional modalities for cytoreduction/adjuvant treatment as appropriate. If the area of recurrences outside his prior radiation field, additional radiation may also be a possibility. It was confirmed with the patient, that he would be in agreement with aggressive treatment including radical surgery, if there was a potential for a curative approach. Would also be in agreement with palliative chemotherapy/immunotherapy if he was not a candidate for the same. Since, patient was started on 5 FU/Carbo/Keytruda, completing cycle 1 on 06/19/24. Patient presented to the emergency room for throat pain and fatigue. Patient had called family and asked them to call EMS. Patient was found to be hypotensive. At today's visit patient is reporting persisting throat pain but p ain meds are helping with pain management. He reports since undergoing chemo on 06/19 he has been experiencing increasing fatigue and intermittent nausea. He has not used antinausea meds that he was prescribed. Also reports that he has decreased tube feedings due to not feeling well. On admit CBC showed WBC 8.9, hemoglobin 10.5, platelets 395,000. Creatinine 0.66, GFR greater than 90. LFTs and bilirubin WNL. Chest x-ray showing chronic changes with no acute cardiopulmonary processes. Patient afebrile. Review of Systems 10 point ROS is negative except as stated in the HPI Past Medical History Past Medical History: Cancer, COPD, Syncope, Thyroid Disorder Additional Past Medical History / Comment(s): Graves disease, diverticulosis, esophageal cancer with radiation and chemo-last 08/05 at [facility],. was in [facility] 06/06 and is in [facility] ICU to cauterize artery going through tumor in throat; laryngeal CA History of Any Multi-Drug Resistant Organisms: None Reported Past Surgical History: Tonsillectomy Additional Past Surgical History / Comment(s): vasectomy, biopsy of throat, trach, PEG tube, cauterization of tumor at [facility] 05/2024 Past Anesthesia/Blood Transfusion Reactions: No Reported Reaction Past Psychological History: No Psychological Hx Reported Smoking Status: Former smoker Past Alcohol Use History: None Reported Past Drug Use History: None Reported - Past Family History Father History Unknown: Yes Family Medical History: Diabetes Mellitus Medications and Allergies Home Medications Medication Instructions Recorded Confirmed Type No Known Home Medications 06/22/24 06/22/24 History Allergies Allergy/AdvReac Type Severity Reaction Status Date / Time No Known Allergies Allergy Verified 06/22/24 10:29 Physical Exam Vitals: Vital Signs Temp Pulse Resp BP BP Pulse Ox FiO2 06/23/24 12:39 93/57 06/23/24 12:08 88/57 06/23/24 11:36 85/56 06/23/24 11:18 97.6 F 63 20 89/59 96 06/23/24 10:00 28 06/23/24 08:17 93/56 06/23/24 07:42 97.8 F 67 20 86/47 97 06/23/24 06:51 108/64 06/23/24 03:38 117/68 06/23/24 03:10 97.4 F L 67 20 101/60 97 06/23/24 02:08 51 L 18 06/22/24 23:49 97.8 F 67 18 110/68 98 06/22/24 21:18 100 28 06/22/24 21:02 97.4 F L 61 18 113/64 100 06/22/24 21:00 61 18 06/22/24 18:38 92/55 06/22/24 17:38 90/50 06/22/24 15:18 97.9 F 64 24 96/59 94 L 28 06/22/24 14:28 84/47 06/22/24 14:00 95/55 06/22/24 13:08 64 Intake and Output 06/22/24 06/23/24 06/23/24 22:59 06:59 14:59 Intake Total 1050 Output Total 400 Balance 1050 -400 Intake: Intake, IV Titration 1050 Amount ACETAMINOPHEN IV (For NPO 100 ) 1,000 mg In Empty Bag 1 bag @ 400 mls/hr IVPB Q8HR [facility] Rx#:[id number] Piperacillin-Tazobactam 3 100 .375 gm In Sodium Chloride 0.9% 100 ml @ 25 mls/hr IVPB Q8H [facility] Rx#: [id number] Sodium Chloride 0.9% 1, 600 000 ml @ 75 mls/hr IV . [id number] [facility] Rx#:[id number] Vancomycin 1,000 mg In 250 Sodium Chloride 0.9% 250 ml @ 125 mls/hr IVPB Q12H [facility] Rx#:[id number] Oral 0 Tube Feeding 0 Other 0 Output: Urine 400 Other: Voiding Method Urinal Urinal Urinal # Voids 1 # Bowel Movements 1 Weight 50 kg 50 kg - Constitutional General appearance: no acute distress, thin - EENT Eyes: anicteric sclerae, EOMI ENT: hearing grossly normal - Respiratory Respiratory: bilateral: CTA - Cardiovascular Rhythm: regular - Gastrointestinal General gastrointestinal: soft, no tenderness - Integumentary Integumentary: no cyanotic - Psychiatric Psychiatric: A&O x's 3 Results CBC & Chem 7: 06/24/24 06:10 06/24/24 06:10 Labs: Abnormal Lab Results - Last 24 Hours (Table) 06/23/24 06/23/24 Range/Units 07:33 07:33 RBC 3.52 L (4.30-5.90) m/uL Hgb 10.5 L (13.0-17.5) gm/dL Hct 34.8 L (39.0-53.0) % MCHC 30.1 L (31.0-37.0) g/dL RDW 16.1 H (11.5-15.5) % Neutrophils # 8.1 H (1.3-7.7) k/uL Lymphocytes # 0.5 L (1.0-4.8) k/uL Glucose 67 L (74-99) mg/dL Calcium 7.9 L (8.4-10.2) mg/dL Total Protein 5.0 L (6.3-8.2) g/dL Albumin 2.6 L (3.5-5.0) g/dL Chest x-ray: report reviewed Assessment and Plan (1) Cancer associated pain Current Visit: Yes Status: Acute Priority: High Code(s): G89.3 - NEOPLASM RELATED PAIN (ACUTE) (CHRONIC) SNOMED Code(s): 74707260668193 (2) Squamous cell carcinoma of head and neck Current Visit: Yes Status: Acute Priority: High Code(s): C44.42 - SQUAMOUS CELL CARCINOMA OF SKIN OF SCALP AND NECK SNOMED Code(s): 383602400 Plan: Head and neck squamous cell carcinoma: -Oncology history and plan as dictated in the HPI -Recently started treatment with 5 FU/Carbo/Keytruda, completing cycle 1 on 06/19/24 -Had progressing fatigue and throat pain causing him to present to the ER -Continue prn pain medications and scheduled reglan. Tolerating tube feedings -May need dose reduction. Will further discuss at f/u with Dr. Moreira 07/04 -Counts stable. Continue to monitor CBC Dr attests: I have performed H&P and developed impression and plan of care for patient, discussed with dictator. I agree with dictated note, documented as a scribe
[2024-06-24] MEDS ORDERED: VANCOMYCIN TROUGH DUE 1 EACH MISC MISCELLANE ONE (11:00)
--- NOTE | 2024-06-24 11:12 | P.PN ---
Subjective Progress Note Date: 06/24/24 Principal diagnosis: Pain. This is a pleasant 59-year-old male patient with a known history of laryngeal cancer with previous chemoradiation, tracheostomy tube placement, PEG tube placement, chronic tobacco dependence, hypothyroidism, Graves' disease, diverticulosis. A recent PET scan from March 30, 2024 revealed progression of disease with uptake just above the level of the tracheostomy cannula which is increased in both size and metabolic activity. Uptake along the pleural on the right previous infection in this region. There is a ball-like uptake within an area of consolidation possibly representing metastatic nodule versus local infection. He had been seen here in April 2024 for hemoptysis. He ended up requiring cauterization that was performed at [facility] in [place] by Dr. Morales. He was brought into the emergency room last evening by EMS after family had called for wellness check. The patient stated he was having throat pain and was requesting Dilaudid. Chest x-ray revealed chronic changes but no acute pulmonary process. White count 8.6. Hemoglobin 11.1. Platelets 457. INR 1.0. Sodium 137. Potassium 4.5. Bicarb 28. BUN 29. Creatinine 0.68. Glucose 93. He is seen today in consultation on the selective care unit. He is currently sitting up in bed. Awake and alert in no acute distress. He denies any worsening shortness of breath, cough or congestion. No hemoptysis. He is maintaining good O2 saturations in the high 90s on 28% FiO2 via trach collar. He has been initiated on vancomycin and Zosyn. Normal saline at 75 mL/h. He is receiving nourishment with TwoCal HN at 10 mL/h with a goal of 38. Progress note dated June 23, 2024. 59-year-old male well-known to our service. The patient has a history of laryngeal carcinoma, with previous chemoradiation, and tracheostomy. The patient is seen today in room 363. He is on a 28% trach collar, although he is not wearing the oxygen. The patient is also getting saline at 75 cc an hour. Tube feedings are currently on hold. The patient has no specific complaints today. Labs include a white count 8.9, hemoglobin 10.5, hematocrit 34.8, and a platelet count of 395,000. Sodium 138, potassium 3.6, chlorides 107, CO2 22, BUN 15, creatinine 0.66. Albumin is 2.6. Procalcitonin level is 0.13. Chest x-ray only showed chronic changes, but nothing acute. Progress note dated June 24, 2024. 59-year-old male seen in room 363. He has a history of laryngeal carcinoma, with previous chemoradiation, and tracheostomy. The patient is supposed to be o n 28% trach collar but is not wearing it. He is getting saline at 5 cc an hour. His tube feeds include Pivot, at 40 cc an hour. He appears about the same today as he did yesterday. He is in no acute distress. Current labs include a white count 8.2, hemoglobin 11, hematocrit 36.8, and platelet count 416,000. Sodium 138, potassium 3.5, chlorides 106, CO2 29, BUN 16, creatinine 0.58. Albumin is 2.8. Objective - Vital Signs Vital signs: Vital Signs Temp 97.8 F 06/24/24 08:30 Pulse 82 06/24/24 08:30 Resp 20 06/24/24 08:30 BP 91/60 06/24/24 08:30 Pulse Ox 91 L 06/24/24 08:50 FiO2 28 06/24/24 03:50 Intake & Output 06/23/24 06/24/24 06/24/24 18:59 06:59 18:59 Intake Total 840 Output Total 850 450 Balance -850 390 Weight 50 kg 43 kg Intake: Intake, IV Titration 600 Amount Sodium Chloride 0.9% 1, 600 000 ml @ 75 mls/hr IV . [id number] [facility] Rx#:[id number] Tube Feeding 240 Output: Urine 850 450 Other: Voiding Method Urinal Urinal Urinal # Voids 1 - Exam No acute distress, oriented 3. Currently not on his trach collar. HEENT examination is grossly unremarkable. Mucous membranes are moist. No oral lesions. Neck supple. Full range of motion. No adenopathy thyromegaly or neck vein distention. Tracheostomy tube noted. Cardiovascular examination reveals regular rhythm rate. S1-S2 normal. No S3 or S4. No discernible murmur noted. Lungs reveal minimal bilateral rhonchi. No wheezes or crackles. Breath sounds equal. Abdomen soft bowel sounds are heard. No masses or tenderness. Extremities are intact. No cyanosis clubbing or edema. Skin is without rash or lesion. Neurologic examination is brief but nonfocal. - Labs CBC & Chem 7: 06/24/24 06:10 06/24/24 06:10 Labs: Abnormal Lab Results - Last 24 Hours (Table) 06/24/24 06/24/24 Range/Units 06:10 06:10 RBC 3.75 L (4.30-5.90) m/uL Hgb 11.0 L (13.0-17.5) gm/dL Hct 36.8 L (39.0-53.0) % MCHC 29.9 L (31.0-37.0) g/dL RDW 16.1 H (11.5-15.5) % Lymphocytes # 0.5 L (1.0-4.8) k/uL Creatinine 0.58 L (0.66-1.25) mg/dL Glucose 100 H (74-99) mg/dL Total Protein 5.2 L (6.3-8.2) g/dL Albumin 2.8 L (3.5-5.0) g/dL Microbiology - Last 24 Hours (Table) 06/22/24 12:17 Nasal Screen MRSA/MSSA - Final Nasal Swab 06/22/24 15:25 Blood Culture - Preliminary Blood Assessment and Plan Assessment: Throat pain in a patient with a history of laryngeal cancer with previous chemoradiation. Tracheostomy and PEG tubes placed. PET scan from March 2024 showing progression. Recent admission for hemoptysis requiring transfer to [facility] in [place] for cauterization by ENT Dr. Morales in May 2024. History of large right-sided hydropneumothorax with previous chest tube insertion and subsequent removal in December 2023. Masslike consolidation in the right midlung dating back to November 2023. Chronic and ongoing tobacco dependence. Hypothyroidism. Chronic obstructive pulmonary disease. Plan: Plan dated June 23, 2024. The patient appears relatively stable. Not quite sure why the patient was admitted. His procalcitonin level was normal. Antibiotics can be discontinued. The patient should resume tube feedings. In my opinion, the patient is at baseline, and can be considered for possible discharge. The patient's overall prognosis is poor. Additional recommendations and suggestions are forthcoming. Labs, x-rays, and medications are reviewed. Plan dated June 24, 2024. The patient is seen today room 363. The patient is not wearing any supplemental oxygen. He has a trach collar ordered 28%, but he is not wearing it. The patient is getting saline at 5 cc an hour, and tube feedings, at goal. Labs, x- rays, and medications are reviewed. The patient is overall prognosis remains poor. We will continue to follow. No respiratory issues at this time. Time with Patient: Less than 30
[2024-06-24 11:35] VITALS: BMI 14.0
[2024-06-24 12:01] LABS: Glucose,Whole Blood 125 mg/dL (70-110)
[2024-06-24 13:13] VITALS: BP 93/60; PULSE 74; TEMP 98
--- NOTE | 2024-06-24 14:19 | P.DS ---
Providers Date of admission: 06/22/24 00:09 Discharge Diagnosis: Hypertension Normocytic anemia Thrombocytosis History of laryngeal carcinoma with previous chemoradiation Hypothyroidism Throat pain COPD Hospital course Patient is a 59-year-old male with a PMH of esophageal cancer (with radiation and chemo last done on 08/[address] [facility]), laryngeal cancer presenting with generalized weakness and sore throat. Patient has tracheostomy and PEG tube. His family called for wellness check, and was brought in to [facility]. Patient is nonverbal and communicates by writing. He states that his family was worried about his immunomodulator infusion pump was causing him to have adverse reaction. Device is currently off. He states he has a sore throat and noticed an increase amount of thick yellow secretions from his trach tube. Patient denies chest pain, fever, chills, abdominal pain, nausea. Patient states he has not significant pain as well and requested Dilaudid in the ED. Patient is frequently hospitalized here in the past. Last hospitalization here was a week and a half ago. Patient was admitted for further evaluation. On the floors he was given IV vancomycin and Zosyn. Blood and sputum cultures were ordered. Procalcitonin level ordered. Pulmonology, hematology, dietitian consulted. 06/23/2024: Patient seen and examined at bedside. Patient states throat is still in a lot of pain and is requesting more pain medication. Was seen by hospice yesterday however did not seem interested in pursuing hospice. Less secretions coming out of his trach tube. Has not been tolerating PEG tube feeding. Tube feeding was paused overnight. Blood cultures displayed no growth after 24 hours. Procalcitonin level was normal. Pulmonology was states that antibiotics can be discontinued. 06/24/2024: Patient seen and examined at bedside. Patient states he is able to tolerate tube feeds. Patient states throat is still sore. Still with some mild purulent secretions from trach tube. Patient is to follow-up with PCP. He is being discharged with midodrine 10 mg PO 3 times daily for his hypotension. He is being discharged home with home health services. Vitals: Signs Reviewed Physical Exam: General: Deconditioned no distress, does not appear at stated age Derm: warm, dry, intact Head: atraumatic, normocephalic, symmetric Eyes: EOMI, anicteric sclera Mouth: no lip lesion, mucus membranes moist Neck: Neck supple, tracheostomy tube Cardiovascular: S1 S2 reg, no murmur, rubs, or gallops Lungs: CTA bilateral, mild bilateral rhonchi, no rales, no accessory muscle use Abdominal: soft, non-tender to palpataion, no appreciable organomegaly Extremities: no gross muscle atrophy, no edema, no contractures Neuro: Alert, Oriented, CNII-XII grossly intact, gait normal Psych: well appearing, appropriate affect A total of greater than 30 minutes of time were spent preparing this complex discharge summary. Patient was discharge on June 24, 2024 at 12:43 PM. Attestation I have seen and examined this patient with my resident , discussed the same with the resident/ERNESTINE, and agree with the dictator's assessment and plan as written Dr. Dannie william Expected date of discharge: 06/24/24 Attending physician: Ronny Johns Consults: 06/22/24 10:53 Consult Physician Routine Consulting Provider: Edmar Wood Consult Reason/Comments: respiratory failure, h/o cancer Do you want consulting provider notified?: Yes 06/22/24 10:57 Consult Physician Routine Consulting Provider: Ck Moreira Consult Reason/Comments: h/o of laryngeal cancer Do you want consulting provider notified?: Yes Primary care physician: Jung Gutierrez Patient Condition at Discharge: Fair Plan - Discharge Summary Discharge Rx Participant: Yes New Discharge Prescriptions: New Midodrine [ProAmatine] 10 mg PO AC-TID 30 Days #30 tab Discharge Medication List Midodrine [ProAmatine] 10 mg PO AC-TID 30 Days #30 tab 06/24/24 [Rx] Follow up Appointment(s)/Referral(s): Jung Gutierrez DO [Primary Care Provider] - 1-2 days (Patient to schedule appointment as office is closed at time of discharge.) [facility], [NON-STAFF] - [facility], [REFERRING] - Patient Instructions/Handouts: Hypotension (DC) Discharge Disposition: HOME WITH HOME HEALTH SERVICES
== END 2024-06-24 16:19 | disposition home health service (06) ==
LOC: EC 21:47 → 5NMEDONC 06-22 00:09 → 4SSUR 06-22 00:19 → 3SCARD 06-22 10:01
PROVIDERS: ADMIT Hospitalist; ATTEND Hospitalist
DX: J02.9 Acute pharyngitis, unspecified (principal); I95.9 Hypotension, unspecified; G89.3 Neoplasm related pain (acute) (chronic); C76.0 Malignant neoplasm of head, face and neck; D64.9 Anemia, unspecified; D75.839 Thrombocytosis, unspecified; E03.9 Hypothyroidism, unspecified; J44.9 Chronic obstructive pulmonary disease, unspecified; I10 Essential (primary) hypertension; F17.200 Nicotine dependence, unspecified, uncomplicated; Z85.01 Personal history of malignant neoplasm of esophagus; Z85.21 Personal history of malignant neoplasm of larynx; Z92.21 Personal history of antineoplastic chemotherapy; Z92.3 Personal history of irradiation; Z93.0 Tracheostomy status; Z93.1 Gastrostomy status
CPT/HCPCS: 96376 ×5; 96361 ×5; 96365; 96366 ×2; 96375 ×2; 96368; 99284; 36415; 94760 ×2; 93005; 83880; 80053 ×3; 83605; 83735 ×3; 85025 ×3; 85610; 85730; 87040; 87070 ×2; 87205; 87077; 87186; 84145; 71046; G0378 ×3; J2543 ×2; J3370 ×2; J2765 ×3; J1171 ×5; J0131 ×2